=== PATIENT | female | born 1935 | race Caucasian/White ===

== ENCOUNTER 2019-08-30 10:53 | Observation (INO) | payer MEDICARE, SELFPAY ==
[2019-08-30] VITALS (9 sets, daily range): BP systolic 153–196; BP diastolic 76–102; PULSE 70–101; RESP 13–20; TEMP 36.2–36.5; O2SAT 94–97; BMI 25.2
--- NOTE | ~2019-08-30 | XR_ITS ---
EXAMINATION: XR hip RT 2V w AP pelvis EXAM DATE: 08/30/2019 13:45 INDICATION: Fall, right hip pain. TECHNIQUE: Right hip frontal, crosstable lateral and 'frog-leg' projections for interpretation. Front al projection pelvis. Comparison is made to prior examination from 03/31/2017. FINDINGS: There is intact right hip gamma nail. There is an old healed intertrochanteric fracture whi ch has been surgically fixed. There are no acute right hip or pelvic fractures or dislocations identi fied. There is no subcutaneous gas. The soft tissue is unremarkable. Sacrum, sacroiliac joints, s acral arcuate lines are intact. Advanced lower lumbar spondylosis. IMPRESSION: 1. XR hip RT 2V w AP pelvis exam without acute osseous findings. 2. Intact right hip gamma nail. Reviewed, dictated and finalized at location B. 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
--- NOTE | ~2019-08-30 | CT_ITS ---
EXAMINATION: CTA brain carotid DATE: 08/30/2019 13:23 INDICATION: Dizziness. TECHNIQUE: Computed tomographic angiography (CTA) of the head was performed without and with 100 mL O mnipaque-350 intravenous contrast. CTA of the neck was performed with intravenous contrast. Automated exposure control and iterative reconstruction technique were employed. The dose-length product was 1 536.62 mGy-cm. Maximum intensity projection and volume rendered 3D-reconstructions were created by katya garcia technologist on a separate workstation. COMPARISON: Head CT 07/24/2019 FINDINGS: HEAD CTA: There are scattered areas of low attenuation in the cerebral white matter. There is no intr acranial hemorrhage, acute infarction, or abnormal intracranial mass lesion. The ventricles are marcus l in size. There is mild mucosal thickening in the paranasal sinuses. There are likely changes of ocu lar lens replacement surgeries. The mastoid air cells are normal. Left vertebral artery is dominant. There is no significant stenosis of basilar artery or the posterior cerebral arteries. There is no si gnificant stenosis of the intracranial internal carotid arteries or anterior or middle cerebral arter ies. Anterior communicating artery is normal. The posterior communicating arteries are normal. There is no aneurysm. NECK CTA: There are bilateral pleural effusions. The lungs demonstrate smooth septal thickening, cons istent with pulmonary edema. There is a large right glenohumeral joint effusion. There are no patholo gically enlarged lymph nodes. There is no significant stenosis of the vertebral arteries. There is pl aque in the proximal internal carotid arteries. There is 58% stenosis of the proximal right internal carotid artery relative to normal distal artery lumen diameter (NASCET criteria). There is 0% stenosi s of the proximal left internal carotid artery relative to normal distal artery lumen diameter. There is severe cervical spondylosis. IMPRESSION: 1. Mild nonspecific cerebral white matter disease, which likely represents chronic small vessel ische percy disease. 2. No aneurysm or significant intracranial arterial stenosis. 3. 58% stenosis of the proximal right internal carotid artery relative to normal distal artery lumen diameter (NASCET criteria). 4. 0% stenosis of the proximal left internal carotid artery relative to normal distal artery lumen di ameter. 5. Pulmonary edema with bilateral pleural effusions. Reviewed, dictated and finalized at location A. . PAYROLL MANAGER IMPRESSION: 1. Mild nonspecific cerebral white matter disease, which likely represents associate professor of history clifton small vessel ischemic disease. 2. No aneurysm or significant intracranial arterial stenosis. 3. 58% stenosis of the proximal right internal carotid artery relative to marcus l distal artery lumen diameter (NASCET criteria). 4. 0% stenosis of the proximal left internal carotid artery relative to normal distal artery lumen diameter. 5. Pulmonary edema with bilateral pleural effusions.
--- NOTE | ~2019-08-30 | XR_ITS ---
EXAMINATION: XR shoulder RT min 2V EXAM DATE: 08/30/2019 13:45 INDICATION: Fall, right shoulder pain. TECHNIQUE: 3 projections of the right shoulder including a Y projection compared to prior study from 08/14/2019. FINDINGS: Subacute fracture at the neck of the right humerus again noted, position does not appear s ignificantly changed compared to prior study. If there has been a reinjury, can't exclude that there has been some small amount of shift in bone position. There has been development of some early change s of routine healing. Again there is probable joint effusion/hemarthrosis. IMPRESSION: Subacute comminuted right humeral neck fracture. Reviewed, dictated and finalized at location B. ENTER/LABOR
--- NOTE | 2019-08-30 11:29 | ECG_ITS ---
Measurements Intervals [place] Rate: 82 P: 54 ME: 147 QRS: 88 QRSD: 131 T: 30 QT: 440 QTc: 517 Interpretive Statements SINUS RHYTHM FREQUENT VENTRICULAR PREMATURE COMPLEXES RIGHT BUNDLE BRANCH BLOCK BASELINE ARTIFACT- II, III, AVR, AVL, AVF ABNORMAL ECG Electronically Signed On 08-30-2019 11:38:40 RADIO ASSEMBLER by Zackery Caldera D.O.
--- NOTE | 2019-08-30 12:22 | ED.FALL ---
HPI - Fall General Chief Complaint: Dizziness Stated Complaint: fall/r hip pain Time Seen by Provider: 08/30/19 12:12 Source: patient and family Mode of arrival: EMS Limitations: no limitations History of Present Illness HPI Narrative: A 83 y/o female pt presents to the ED, via EMS, from home with c/o a fall in her bathroom that occurred around 09:24 AM. Pt states she was leaving the bathroom when she remembers falling down onto her right side but is unsure if she passed out. She called her daughter because she was unable to get up. Per family, they were unable to get her off the floor because her bathroom is small and decided to call 911 for help. Pt fell on [place] (1 month ago) and broke her rt shoulder and was sent to a bounce back program through [facility] by Dr. Steve on (08/01/2019) where she was just released from on 08/26/2019. She notes that she fell about one year ago and fractured her rt hip that required surgical repair. Pt is currently complaining of dizziness that she describes as the room spinning, rt shoulder pain, and nausea since the fall this AM. She is also complaining of bilateral foot swelling that began 1 week ago that has been diagnosed as gout. Pt denies HI, ESPARZA, CP, ABD pain, or hip pain. She notes that the shoulder pain feels deep within her shoulder but does not radiate and rates her pain as a 9/10 on the pain scale that worsens with movement. Pt denies any relieving factors. Per family pt's blood pressure was higher than normal today when checked by EMS. complaint: fall Onset (ago): hour(s) (3) Fall from: standing Fall witnessed: no Place fall occurred: home Loss of consciousness: unsure Symptoms prior to fall: none Location of injury - extremities: Right: shoulder Severity scale (1-10): 9 Quality: other (deep) Associated symptoms (after fall): other (dizziness, nausea) Related Data Home Medications Medication Instructions Recorded Confirmed Januvia 100 mg PO DAILY 07/24/19 08/30/19 carbamazepine 200 mg PO TID 07/24/19 08/30/19 ezetimibe 10 mg PO DAILY 07/24/19 08/30/19 fluticasone propionate 1 spray INTRANASAL PRN PRN 07/24/19 08/30/19 furosemide 40 mg PO DAILY 07/24/19 08/30/19 metformin 1,000 mg PO DAILY 07/24/19 08/30/19 metoprolol tartrate 25 mg PO BID 07/24/19 08/30/19 montelukast 10 mg PO HS 07/24/19 08/30/19 omeprazole 20 mg PO DAILY 07/24/19 08/30/19 paroxetine HCl 40 mg PO DAILY 07/24/19 08/30/19 simvastatin 40 mg PO HS 07/24/19 08/30/19 Allergies Allergy/AdvReac Type Severity Reaction Status Date / Time influenza A (H1N1) virus Allergy Unknown Swelling Verified 08/30/19 11:07 vaccine m-jong-split 2008 of Lip/Tongue/Throat Influenza Virus Vaccines Allergy Unknown Swelling Verified 08/30/19 11:07 of Lip/Tongue/Throat phenobarbital Allergy Unknown Unknown Verified 08/14/19 12:31 Review of Systems Review of Systems: All systems reviewed & are unremarkable except as noted in HPI and below Constitutional: Constitutional: Denies chills, Denies fever(s), Denies headache(s) and Denies weakness Eyes: Eyes: Denies blurry vision ENT: Denies headache(s) and Denies neck pain Cardiovascular: Cardiovascular: Denies chest pain and Denies dyspnea Respiratory: Respiratory: Denies cough and Denies dyspnea Gastrointestinal: Gastrointestinal: Denies abdominal pain, Denies diarrhea, Reports nausea and Denies vomiting Genitourinary: Genitourinary: Denies hematuria and Denies dysuria Musculoskeletal: Musculoskeletal: Denies back pain, Reports arthralgias (rt shoulder), Denies neck pain and Denies other (rt hip pain) Neurologic: Reports dizziness ( room spinning ), Denies headache(s), Denies weakness and Reports other (Reports: unsure LOC; Denies: HI) [facility] Past Medical History Medical History (Updated 08/30/19 @ 22:19 by Jackie Cavanaugh MD) Anemia Arthritis CKD (chronic kidney disease) Stage III Closed fracture of right hip requiring operative repair Depression D
[2019-08-30 12:36] LABS: Basophils Absolute Auto 0.1 K/mm3 (0.0-0.1); Basophils Percent Auto 0.7 % (0.2-1.2); Eosinophils Absolute Auto 0.1 K/mm3 (0-0.3); Eosinophils Percent Auto 1.2 % (0-4.4); Hematocrit 32.5 % (37.0-47.0); Hemoglobin 10.3 g/dL (12.0-15.0); Immature Granulocyte Absolute 0.03 K/mm3 (0.00-0.031); Immature Granulocyte Percent A 0.4 % (0-0.5); Mean Corpuscular HGB Conc 31.7 g/dl (32-36); Mean Corpuscular Volume 94.8 fl (80-100); Mean Platelet Volume 9.3 fl (7.4-10.4); Monocytes Absolute Auto 0.4 K/mm3 (0.1-0.6); Monocytes Percent Auto 5.5 % (2.6-8.5); Neutrophils Absolute Auto 5.5 K/mm3 (1.3-6.7); Neutrophils Percent Auto 79.2 % (45.5-73.1); Platelet Count Result 234 k/mm3 (150-375); Red Blood Count 3.43 M/mm3 (4.2-5.4); Red Cell Distribution Width 14.5 % (11.5-14.5); White Blood Count 6.9 K/mm3 (4.5-10.0)
[2019-08-30 12:53] LABS: Alanine Aminotransferase 11 U/L (4-35); Albumin Level 3.8 g/dL (3.5-5.1); Alkaline Phosphatase 155 U/L (38-126); Aspartate Amino Transferase 29 U/L (14-36); Bilirubin,Total 0.6 mg/dL (0.2-1.3); Blood Urea Nitrogen 22 mg/dL (7-17); Carbon Dioxide 30 mmol/L (22-30); Chloride 95 mmol/L (98-107); Estimated CRCL calculation 60 ml/min; Estimated Glomerular Filt Rate > 60; Glucose 178 mg/dL (65-105); Potassium 3.2 mmol/L (3.4-5.0); Sodium 135 mmol/L (137-145)
[2019-08-30 13:13] LABS: NT Pro B Type Natriuretic Pept 8200 PG/ML (5-100); Troponin I 0.039 ng/mL (0.000-0.034)
[2019-08-30] MEDS: POTASSIUM CHLORIDE 20 MEQ TABLET 40 MEQ PO (14:31)
[2019-08-30] MEDS: MECLIZINE HCL 25 MG TABLET PO (14:31)
--- NOTE | 2019-08-30 16:41 | ADMGEN ---
This patient, Elizabeth Negron, was admitted to IMU Room 214-01. Patient/family oriented to hospital policies and general routines including ID bracelet, bed and alarms, visiting hours, pain management, procedures, bathroom and other care routines, personal items, smoking policy, room service/diet, and visiting hours. Valuables list has been completed. Information on how to activate the Rapid Response Team has been discussed. Patient/Family are encouraged to report perceived risks to care and to ask questions if they do not understand what they are told or what they should do.
[2019-08-30 18:10] LABS: Glucose Point of Care 196 (65-105)
[2019-08-30 18:18] LABS: Troponin I 0.069 ng/mL (0.000-0.034)
--- NOTE | 2019-08-30 20:28 | PM.IMHP ---
H&P: HPI History of Present Illness Chief complaint: Syncope/Elevated troponin/right shoulder pain Narrative: Elizabeth Negron is a 83 year old female who I saw last month on [place]. The patient was seen for fractured humerus. The patient had been in the parents back program at [facility] and has been followed by Dr. Diaz. The patient stated she just recently went back to her house and lives home alone. The patient was in her home when she fell in the bathroom at about 924 this morning. She was leaving her bathroom when she realized that she had fallen. she has a bruise to the right side of her chest. CT of the brain was found to be negative. She was x-rayed and found to have no fractures except for her right humerus which was there from [place]. The patient was complaining of dizziness and room spinning when she came to the emergency room. Of right arm pain and was given [place] in the emergency room as well as fentanyl. Was found to be 3.2 to was given supplement potassium in the emergency room. Her blood sugar has been in the 100. Troponin was found to be 0.039 and 0.069. The patient is not complaining of any chest pain or shortness of breath. EKG from the ER was read as sinus rhythm frequent ventricular premature complexes. Right bundle branch block. Abnormal EKG. To be the same reading as last month. Date of service 08/30/2019 Review of Systems Review of Systems: All systems reviewed & are unremarkable except as noted in HPI and below Constitutional: Constitutional: Reports as per HPI, Reports no additional constitutional complaints, Reports frequent falls, Reports lethargy and Reports weakness Eyes: Eyes: Reports as per HPI and Reports no additional eye complaints ENT: Reports system reviewed and no additional complaints, except as documented and Reports Normal hearing present Cardiovascular: Cardiovascular: Reports no additional cardiovascular complaints Respiratory: Respiratory: Reports no additional respiratory complaints and Reports no additional respiratory complaints Gastrointestinal: Gastrointestinal: Reports as per HPI and Reports no additional gastrointestinal complaints Genitourinary: Genitourinary: Reports urinary urgency and Reports other (Incontinent of urine) Musculoskeletal: Musculoskeletal: Reports no additional musculoskeletal complaints Integumentary/Breasts: Skin/Breast: Reports system reviewed and no additional complaints, except as docu and Reports as per HPI Neurologic: Reports system reviewed and no additional complaints, except as documented, Reports as per HPI and Reports Normal hearing present Psychiatric: Psychiatric: Reports no additional psychiatric complaints and Reports as per HPI Endocrine: Endocrine: Reports no additional endocrine complaints Hematologic/Lymphatic: Hematologic/Lymphatic: Reports no additional hematologic/lymphatic complaints Allergic/Immunologic: Allergic/Immunologic: Reports no additional allergic/immunologic complaints [facility] Past Medical History Medical History (Updated 08/30/19 @ 20:46 by Blanche Crowe NP) Anemia Arthritis CKD (chronic kidney disease) Stage III Closed fracture of right hip requiring operative repair Depression Diabetes With peripheral neuropathy Diverticulitis Fracture of proximal end of right humerus GERD (gastroesophageal reflux disease) GI bleed History of blood transfusion History of rectal polyps HTN (hypertension) Hyperlipidemia Peripheral neuropathy Pneumonia Sinus problem UTI (urinary tract infection) Surgical History Surgical History Fracture of right hip requiring operative repair H/O bilateral cataract extraction H/O inguinal hernia repair H/O: hysterectomy History of appendectomy History of colon resection History of rectal polypectomy Family History Family History Sibling Carcinoma of col
[2019-08-30] MEDS: MONTELUKAST SODIUM 10 MG TABLET PO (21:14)
[2019-08-30] MEDS: METOPROLOL TARTRATE 25 MG TABLET PO (21:14)
[2019-08-30] MEDS: TRAZODONE HCL 50 MG TABLET PO (21:14)
[2019-08-30] MEDS: carBAMazepine 200 MG TABLET PO (21:14)
[2019-08-30 21:44] LABS: Troponin I 0.079 ng/mL (0.000-0.034)
[2019-08-30] MEDS: ACETAMINOPHEN 325 MG TABLET 650 MG PO (22:04)
[2019-08-31] VITALS (11 sets, daily range): BP systolic 150–169; BP diastolic 54–66; PULSE 56–90; RESP 16–18; TEMP 35.9–36.5; O2SAT 92–96
[2019-08-31 04:50] LABS: Basophils Percent Auto 0.7 % (0.2-1.2); Eosinophils Absolute Auto 0.2 K/mm3 (0-0.3); Eosinophils Percent Auto 2.5 % (0-4.4); Hematocrit 30.7 % (37.0-47.0); Hemoglobin 9.6 g/dL (12.0-15.0); Immature Granulocyte Absolute 0.04 K/mm3 (0.00-0.031); Immature Granulocyte Percent A 0.7 % (0-0.5); Lymphocytes Absolute Auto 0.95 K/mm3 (0.9-3.2); Mean Corpuscular HGB Conc 31.3 g/dl (32-36); Mean Corpuscular Hemoglobin 29.7 pg (26-34); Mean Platelet Volume 9.3 fl (7.4-10.4); Monocytes Absolute Auto 0.5 K/mm3 (0.1-0.6); Monocytes Percent Auto 8.4 % (2.6-8.5); Neutrophils Absolute Auto 4.3 K/mm3 (1.3-6.7); Neutrophils Percent Auto 71.7 % (45.5-73.1); Platelet Count Result 232 k/mm3 (150-375); Red Blood Count 3.23 M/mm3 (4.2-5.4); Red Cell Distribution Width 14.3 % (11.5-14.5)
[2019-08-31 05:11] LABS: Alanine Aminotransferase 10 U/L (4-35); Albumin Level 3.2 g/dL (3.5-5.1); Alkaline Phosphatase 132 U/L (38-126); Aspartate Amino Transferase 23 U/L (14-36); Bilirubin,Total 0.4 mg/dL (0.2-1.3); Blood Urea Nitrogen 18 mg/dL (7-17); Calcium 7.6 mg/dL (8.4-10.2); Carbon Dioxide 31 mmol/L (22-30); Chloride 100 mmol/L (98-107); Estimated CRCL calculation 52 ml/min; Estimated Glomerular Filt Rate > 60; Glucose 167 mg/dL (65-105); Magnesium 1.1 mg/dL (1.6-2.3); Potassium 3.5 mmol/L (3.4-5.0); Sodium 139 mmol/L (137-145)
[2019-08-31 08:35] LABS: Glucose Point of Care 158 (65-105)
[2019-08-31] MEDS: POTASSIUM CHLORIDE 20 MEQ PACKET (FOR LIQUID) PO (08:44)
[2019-08-31] MEDS: PAROXETINE 20 MG TABLET 40 MG PO (08:45)
[2019-08-31] MEDS: PANTOPRAZOLE 40 MG TABLET PO (08:45)
[2019-08-31] MEDS: EZETIMIBE 10 MG TABLET PO (08:45)
[2019-08-31] MEDS: FUROSEMIDE 40 MG TABLET PO (08:45)
[2019-08-31] MEDS: METOPROLOL TARTRATE 25 MG TABLET PO ×2 (08:45→20:00)
[2019-08-31] MEDS: carBAMazepine 200 MG TABLET PO ×3 (08:45→17:15)
[2019-08-31] MEDS: MAGNESIUM SULF 4 GM/WATER100ML 4 GM/100 ML BAG IVPB (08:48)
--- NOTE | 2019-08-31 10:49 | PM.CNOR ---
Assessment and Plan Assessment and plan (1) Fall: Qualifiers: Encounter type: initial encounter Qualified Code(s): W19.XXXA - Unspecified fall, initial encounter Code(s): W19.XXXA - Unspecified fall, initial encounter Status: Acute Assessment and Plan: New evaluation s/p fall on 08/30 AM onto the right side. History, exam and radiographs reviewed with the patient s/p new fall at home on 08/30 AM. Radiographs of the right arm reveal a subacute fracture at the neck of the right humerus with unchanged position compared to prior radiographs. New development of routine healing noted. Radiographs of the right hip reveal an old healed intertrochanteric fracture with internal fixation in good position. No acute right hip or pelvic fractures or dislocations identified. Continue PT/OT. Pendulum exercises. Progress use of RUE as tolerated. Sling as needed for comfort. Ice. Pain control. Follow up as an outpatient in [address] Steve for repeat radiographs. (2) Fracture of proximal end of right humerus: Qualifiers: Encounter type: subsequent encounter Fracture type: closed Fracture morphology: other fracture Fracture alignment: displaced Fracture healing: with routine healing Qualified Code(s): S42.291D - Other displaced fracture of upper end of right humerus, subsequent encounter for fracture with routine healing Code(s): S42.201A - Unspecified fracture of upper end of right humerus, initial encounter for closed fracture Status: Acute Assessment and Plan: New radiographs of the right shoulder s/p new fall on 08/30 reveal a subacute fracture at the neck of the right humerus with unchanged position compared to prior radiographs. New development of routine healing noted. Continue use of sling as needed for comfort. Ice. Pain control. PT/OT for pendulum exercises. Progress use of arm as tolerated. Follow up in [address] Steve for repeat radiographs. (3) Pain in right shoulder: Qualifiers: Chronicity: unspecified Qualified Code(s): M25.511 - Pain in right shoulder Code(s): M25.511 - Pain in right shoulder Status: Acute History of Present Illness HPI Consult date: 08/31/19 Requesting physician: Jackie Cavanaugh MD Consult reason: fracture (Right Shoulder ) Chief complaint: Syncope/Elevated troponin/right shoulder pain Narrative: 83 year old female, known to the orthopedic service s/p fall on 07/25 which resulted in a right humeral neck fracture. The patient elected for nonoperative treatment after her fracture and was discharged to an acute rehab facility for rehabilitation. She was recently evaluated in our office on 08/14 and repeat radiographs at that time reveal a proximal humerus fracture with unchanged alignment. She was progressed to pendulum exercises at that facility. Per patient, she was discharged home from rehab on Tuesday. She now presents s/p NEW fall on 08/30 while in the bathroom yesterday morning. She reports having fallen into a towel rack onto the right side and endorses increased RUE pain s/p fall. She does endorse dizziness prior to her fall but denies loss of consciousness. She contacted a friend who could not help get her up so EMS was called. She was evaluated in the ED and admitted in the setting of hypokalemia, syncope and elevated troponins. Review of Systems Review of Systems: All systems reviewed & are unremarkable except as noted in HPI and below Constitutional: Constitutional: Reports no additional constitutional complaints and Denies night sweats Eyes: Eyes: Reports no additional eye complaints ENT: Reports Normal hearing present Cardiovascular: Cardiovascular: Denies chest pain and Reports lightheadedness Respiratory: Respiratory: Reports no additional respiratory complaints and Denies dyspnea Gastrointestinal: Gastrointestinal: Denies abdominal pain, Denies constipation, Denies diarrhea, Denies nausea and D
--- NOTE | 2019-08-31 11:04 | PM.IMPN ---
Progress Note: A&P Assessment and Plan (1) Elevated troponin: Code(s): R79.89 - Other specified abnormal findings of blood chemistry Status: Acute Assessment and Plan: Minimal elevation of troponin level no chest pain. EKG with no acute changes. Telemetry reviewed on 08/31/2019 with sinus rhythm. Will transfer to medical floor. Patient preference is to go home with home health. Hopefully will be able to discharge this weekend. (2) Dizziness: Code(s): R42 - Dizziness and giddiness Status: Acute Assessment and Plan: CT head with no acute changes. Will start scheduled meclizine. Will monitor. PT/OT following. (3) Hypomagnesemia: Code(s): E83.42 - Hypomagnesemia Status: Acute Assessment and Plan: Magnesium 1.1 today with IV replacement given. Will continue to monitor and replace as needed. (4) Fracture of proximal end of right humerus: Qualifiers: Encounter type: subsequent encounter Fracture alignment: displaced Fracture healing: with routine healing Fracture morphology: other fracture Fracture type: closed Qualified Code(s): S42.291D - Other displaced fracture of upper end of right humerus, subsequent encounter for fracture with routine healing Code(s): S42.201A - Unspecified fracture of upper end of right humerus, initial encounter for closed fracture Status: Acute Assessment and Plan: Being followed by Dr. Steve prior to this admission. Appreciate input from Orthopedics. Continue sling to right upper extremity with new imaging only showing subacute comminuted right humeral neck fracture with no new changes. Continue PT/ OT. Continue home hydrocodone acetaminophen. (5) Diabetes: Qualifiers: Chronic kidney disease stage: stage 3 (moderate) Diabetes mellitus complication detail: with chronic kidney disease Diabetes mellitus complication status: with kidney complications Diabetes mellitus retirement insulin use: without retirement use Diabetes mellitus type: type 2 Qualified Code(s): E11.22 - Type 2 diabetes mellitus with diabetic chronic kidney disease; N18.3 - Chronic kidney disease, stage 3 (moderate) Code(s): E11.9 - Type 2 diabetes mellitus without complications Status: Chronic Assessment and Plan: Glucose reviewed on 08/31/2019 and stable. Continue Januvia. Sliding scale insulin available. Will monitor. Adjust treatment as needed. (6) CKD (chronic kidney disease): Qualifiers: Chronic kidney disease stage: stage 3 (moderate) Qualified Code(s): N18.3 - Chronic kidney disease, stage 3 (moderate) Code(s): N18.9 - Chronic kidney disease, unspecified Status: Chronic Assessment and Plan: Creatinine better than baseline and 0.70 today. Will monitor. (7) HTN (hypertension): Qualifiers: Hypertension type: essential hypertension Qualified Code(s): I10 - Essential (primary) hypertension Code(s): I10 - Essential (primary) hypertension Status: Chronic Assessment and Plan: Blood pressure reviewed on 08/31/2019 and stable. Will continue to monitor on metoprolol and Lasix. (8) Hyperlipidemia: Qualifiers: Hyperlipidemia type: unspecified Qualified Code(s): E78.5 - Hyperlipidemia, unspecified Code(s): E78.5 - Hyperlipidemia, unspecified Status: Chronic Assessment and Plan: Continue Zetia. Simvastatin discontinued with recent falls in case causing muscle issues. (9) Peripheral neuropathy: Qualifiers: Peripheral neuropathy type: polyneuropathy, unspecified Qualified Code(s): G62.9 - Polyneuropathy, unspecified Code(s): G62.9 - Polyneuropathy, unspecified Status: Chronic Assessment and Plan: Continue PT/OT. No acute issue. (10) Depression: Qualifiers: Depression Type: unspecified Qualified Code(s): F32.9 - Major depressive disorder, single episode, unspec
--- NOTE | 2019-08-31 12:55 | PC.NURSE ---
This patient, Elizabeth Negron, was transferred to [ [id number]] on 08/31/19 at 1256. Personal belongings sent with patient. Belongings list checked and signed with receiving [ ]. Report given to [ RICHARD Bullock @ [id number]]. Appropriate documentation sent with patient.
[2019-08-31 13:03] LABS: Glucose Point of Care 229 (65-105)
[2019-08-31] MEDS: INSULIN ASPART (*BKC) 100 UNITS/ML SUB-Q (13:30)
[2019-08-31 18:28] LABS: Glucose Point of Care 198 (65-105)
[2019-08-31] MEDS: MECLIZINE HCL 12.5 MG TABLET PO ×2 (18:58→20:00)
[2019-08-31] MEDS: TRAZODONE HCL 50 MG TABLET PO (20:00)
[2019-08-31] MEDS: MONTELUKAST SODIUM 10 MG TABLET PO (20:00)
[2019-08-31 20:23] LABS: Glucose Point of Care 297 (65-105)
[2019-09-01 06:00] VITALS: BP 170/59; PULSE 73; RESP 18; TEMP 36.8; O2SAT 96
[2019-09-01 06:34] LABS: Blood Urea Nitrogen 23 mg/dL (7-17); Calcium 7.7 mg/dL (8.4-10.2); Carbon Dioxide 29 mmol/L (22-30); Chloride 96 mmol/L (98-107); Estimated CRCL calculation 52 ml/min; Estimated Glomerular Filt Rate > 60; Glucose 169 mg/dL (65-105); Magnesium 1.8 mg/dL (1.6-2.3); Potassium 3.6 mmol/L (3.4-5.0); Sodium 134 mmol/L (137-145)
[2019-09-01 08:00] VITALS: BP 172/77; PULSE 84; RESP 20; TEMP 36.9; O2SAT 93
[2019-09-01] MEDS: POTASSIUM CHLORIDE 20 MEQ PACKET (FOR LIQUID) PO (08:38)
[2019-09-01 08:39] VITALS: PULSE 78
[2019-09-01] MEDS: METOPROLOL TARTRATE 25 MG TABLET PO (08:39)
[2019-09-01] MEDS: PANTOPRAZOLE 40 MG TABLET PO (08:39)
[2019-09-01] MEDS: FUROSEMIDE 40 MG TABLET PO (08:41)
[2019-09-01] MEDS: carBAMazepine 200 MG TABLET PO ×3 (08:41→18:25)
[2019-09-01] MEDS: MECLIZINE HCL 12.5 MG TABLET PO ×4 (08:41→20:37)
[2019-09-01] MEDS: EZETIMIBE 10 MG TABLET PO (08:41)
[2019-09-01] MEDS: PAROXETINE 20 MG TABLET 40 MG PO (10:28)
--- NOTE | 2019-09-01 11:23 | PM.IMPN ---
Progress Note: A&P Assessment and Plan (1) Dizziness: Code(s): R42 - Dizziness and giddiness Status: Acute Assessment and Plan: CT head with no acute changes. Improving with scheduled meclizine. Continue PT/OT. Requiring more assistance with therapy today. Patient is willing to go to a rehab facility if able to be arranged. Not safe to discharge today. Will continue to monitor. (2) HTN (hypertension): Qualifiers: Hypertension type: essential hypertension Qualified Code(s): I10 - Essential (primary) hypertension Code(s): I10 - Essential (primary) hypertension Status: Chronic Assessment and Plan: Blood pressure reviewed on 09/01/2019. Remains elevated. Will increase metoprolol. Continue Lasix. Will monitor and adjust treatment as needed. (3) Fracture of proximal end of right humerus: Qualifiers: Encounter type: subsequent encounter Fracture alignment: displaced Fracture healing: with routine healing Fracture morphology: other fracture Fracture type: closed Qualified Code(s): S42.291D - Other displaced fracture of upper end of right humerus, subsequent encounter for fracture with routine healing Code(s): S42.201A - Unspecified fracture of upper end of right humerus, initial encounter for closed fracture Status: Acute Assessment and Plan: Being followed by Dr. Steve prior to this admission. Appreciate input from Orthopedics. Continue sling to right upper extremity with new imaging only showing subacute comminuted right humeral neck fracture with no new changes. Continue PT/ OT. Continue home hydrocodone acetaminophen. Will also try adding Lidoderm patch to help with pain. (4) Elevated troponin: Code(s): R79.89 - Other specified abnormal findings of blood chemistry Status: Acute Assessment and Plan: Minimal elevation of troponin level no chest pain. EKG with no acute changes. No chest pain. (5) Hypomagnesemia: Code(s): E83.42 - Hypomagnesemia Status: Acute Assessment and Plan: Magnesium 1.8 today. Will continue to monitor and replace as needed. 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 Continue Januvia. Sliding scale insulin available. Will monitor. Adjust treatment as needed. (7) CKD (chronic kidney disease): Qualifiers: Chronic kidney disease stage: stage 3 (moderate) Qualified Code(s): N18.3 - Chronic kidney disease, stage 3 (moderate) Code(s): N18.9 - Chronic kidney disease, unspecified Status: Chronic Assessment and Plan: Creatinine remains better than baseline at 0.70 today. Will monitor. (8) Hyperlipidemia: Qualifiers: Hyperlipidemia type: unspecified Qualified Code(s): E78.5 - Hyperlipidemia, unspecified Code(s): E78.5 - Hyperlipidemia, unspecified Status: Chronic Assessment and Plan: Continue Zetia. Simvastatin discontinued with recent falls in case causing muscle issues. (9) Peripheral neuropathy: Qualifiers: Peripheral neuropathy type: polyneuropathy, unspecified Qualified Code(s): G62.9 - Polyneuropathy, unspecified Code(s): G62.9 - Polyneuropathy, unspecified Status: Chronic Assessment and Plan: Continue PT/OT. No acute issue. (10) Depression: Qualifiers: Depression Type: unspecif
[2019-09-01 11:45] LABS: Glucose Point of Care 175 (65-105)
[2019-09-01 12:16] LABS: Glucose Point of Care 195 (65-105)
[2019-09-01] MEDS: LIDOCAINE 5% PATCH 1 PATCH TRANSDERM (12:41)
[2019-09-01 14:00] VITALS: BP 171/69; PULSE 72; RESP 20; TEMP 36.4; O2SAT 95
--- NOTE | 2019-09-01 15:42 | PCCCNOTE ---
EHR request sent at [phone]
[2019-09-01 18:12] LABS: Glucose Point of Care 157 (65-105)
[2019-09-01 20:38] VITALS: PULSE 72
[2019-09-01] MEDS: METOPROLOL TARTRATE 50 MG TAB PO (20:38)
[2019-09-01] MEDS: MONTELUKAST SODIUM 10 MG TABLET PO (20:39)
[2019-09-01] MEDS: TRAZODONE HCL 50 MG TABLET PO (20:40)
[2019-09-01 22:00] VITALS: BP 174/75; PULSE 86; RESP 18; TEMP 36.8; O2SAT 96
[2019-09-02 01:52] LABS: Glucose Point of Care 282 (65-105)
[2019-09-02 06:00] VITALS: BP 177/73; PULSE 62; RESP 16; TEMP 36.6; O2SAT 95
[2019-09-02 06:17] LABS: Blood Urea Nitrogen 27 mg/dL (7-17); Calcium 8.1 mg/dL (8.4-10.2); Carbon Dioxide 29 mmol/L (22-30); Chloride 94 mmol/L (98-107); Estimated CRCL calculation 46 ml/min; Estimated Glomerular Filt Rate > 60; Glucose 168 mg/dL (65-105); Magnesium 1.6 mg/dL (1.6-2.3); Potassium 3.9 mmol/L (3.4-5.0); Sodium 133 mmol/L (137-145)
[2019-09-02] MEDS: LIDOCAINE 5% PATCH 1 PATCH TRANSDERM (08:47)
[2019-09-02] MEDS: PAROXETINE 20 MG TABLET 40 MG PO (08:47)
[2019-09-02 08:48] VITALS: PULSE 64
[2019-09-02] MEDS: FUROSEMIDE 40 MG TABLET PO (08:48)
[2019-09-02] MEDS: POTASSIUM CHLORIDE 20 MEQ PACKET (FOR LIQUID) PO (08:48)
[2019-09-02] MEDS: MECLIZINE HCL 12.5 MG TABLET PO ×4 (08:48→20:30)
[2019-09-02] MEDS: METOPROLOL TARTRATE 50 MG TAB PO ×2 (08:48→20:30)
[2019-09-02] MEDS: EZETIMIBE 10 MG TABLET PO (08:48)
[2019-09-02] MEDS: PANTOPRAZOLE 40 MG TABLET PO (08:50)
[2019-09-02] MEDS: carBAMazepine 200 MG TABLET PO ×3 (08:50→17:17)
--- NOTE | 2019-09-02 11:08 | PM.IMPN ---
Progress Note: A&P Assessment and Plan (1) Dizziness: Code(s): R42 - Dizziness and giddiness Status: Acute Assessment and Plan: CT head with no acute changes. Improved with schedule meclizine. Continue PT/OT. Patient does have authorization for SNF. Can be accepted by [facility] tomorrow. Is medically stable. Anticipate discharge tomorrow. (2) HTN (hypertension): Qualifiers: Hypertension type: essential hypertension Qualified Code(s): I10 - Essential (primary) hypertension Code(s): I10 - Essential (primary) hypertension Status: Chronic Assessment and Plan: Blood pressure reviewed on 09/02/2019. Noted be improving today with increase in metoprolol. Also on Lasix. Will continue to monitor. Adjust treatment as needed. (3) Fracture of proximal end of right humerus: Qualifiers: Encounter type: subsequent encounter Fracture alignment: displaced Fracture healing: with routine healing Fracture morphology: other fracture Fracture type: closed Qualified Code(s): S42.291D - Other displaced fracture of upper end of right humerus, subsequent encounter for fracture with routine healing Code(s): S42.201A - Unspecified fracture of upper end of right humerus, initial encounter for closed fracture Status: Acute Assessment and Plan: Being followed by Dr. Steve prior to this admission. Appreciate input from Orthopedics. Continue sling to right upper extremity with new imaging only showing subacute comminuted right humeral neck fracture with no new changes. Continue PT/ OT. Continue home hydrocodone acetaminophen and Lidoderm patch to help with pain. (4) Elevated troponin: Code(s): R79.89 - Other specified abnormal findings of blood chemistry Status: Acute Assessment and Plan: Minimal elevation of troponin level no chest pain. EKG with no acute changes. No chest pain. (5) Hypomagnesemia: Code(s): E83.42 - Hypomagnesemia Status: Acute Assessment and Plan: Magnesium 1.6 today. Will start oral replacement today. Recheck in am. 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 Glucose acceptably controlled. Continue Januvia. Sliding scale insulin available. Will monitor. Adjust treatment as needed. (7) CKD (chronic kidney disease): Qualifiers: Chronic kidney disease stage: stage 3 (moderate) Qualified Code(s): N18.3 - Chronic kidney disease, stage 3 (moderate) Code(s): N18.9 - Chronic kidney disease, unspecified Status: Chronic Assessment and Plan: Creatinine remains better than baseline at 0.80 today. Will monitor. (8) Hyperlipidemia: Qualifiers: Hyperlipidemia type: unspecified Qualified Code(s): E78.5 - Hyperlipidemia, unspecified Code(s): E78.5 - Hyperlipidemia, unspecified Status: Chronic Assessment and Plan: Continue Zetia. Simvastatin discontinued with recent falls in case causing muscle issues. (9) Peripheral neuropathy: Qualifiers: Peripheral neuropathy type: polyneuropathy, unspecified Qualified Code(s): G62.9 - Polyneuropathy, unspecified Code(s): G62.9 - Polyneuropathy, unspecified Status: Chronic Assessment and Plan: Continue PT/OT. No acute issue. (10) Depression: Qualifiers: Depression Type: unspecified Qualified Code(s): F
[2019-09-02] MEDS: INSULIN ASPART (*BKC) 100 UNITS/ML SUB-Q (12:21)
[2019-09-02 12:28] LABS: Glucose Point of Care 181 (65-105)
[2019-09-02 12:28] LABS: Glucose Point of Care 222 (65-105)
[2019-09-02 14:00] VITALS: BP 149/66; PULSE 60; RESP 20; TEMP 36.9; O2SAT 96
--- NOTE | 2019-09-02 16:29 | PCOTNOTE ---
The patient treatment was not able to be completed. Will plan to continue treatment per plan of care.
[2019-09-02 17:38] LABS: Glucose Point of Care 140 (65-105)
[2019-09-02 20:30] VITALS: PULSE 74
[2019-09-02] MEDS: MONTELUKAST SODIUM 10 MG TABLET PO (20:30)
[2019-09-02] MEDS: MAGNESIUM OXIDE 400 MG TABLET PO (20:30)
[2019-09-02] MEDS: TRAZODONE HCL 50 MG TABLET PO (20:31)
[2019-09-02 20:48] LABS: Glucose Point of Care 218 (65-105)
[2019-09-02 21:52] VITALS: BP 188/72; PULSE 74; RESP 18; TEMP 36.1; O2SAT 92
[2019-09-03 05:55] VITALS: BP 164/75; PULSE 72; RESP 16; TEMP 36.2; O2SAT 94
[2019-09-03 06:48] LABS: Glucose Point of Care 222 (65-105)
[2019-09-03 06:57] LABS: Blood Urea Nitrogen 23 mg/dL (7-17); Calcium 8.7 mg/dL (8.4-10.2); Carbon Dioxide 32 mmol/L (22-30); Chloride 92 mmol/L (98-107); Estimated CRCL calculation 52 ml/min; Estimated Glomerular Filt Rate > 60; Glucose 192 mg/dL (65-105); Magnesium 1.5 mg/dL (1.6-2.3); Potassium 4.3 mmol/L (3.4-5.0); Sodium 131 mmol/L (137-145)
[2019-09-03] MEDS: INSULIN ASPART (*BKC) 100 UNITS/ML SUB-Q ×2 (07:16→17:13)
[2019-09-03 08:00] VITALS: PULSE 72; RESP 16; O2SAT 94
--- NOTE | 2019-09-03 08:17 | PCOTNOTE ---
Pt refused skilled OT this morning 2/2 too sick, vomiting and diahrrea.
[2019-09-03] MEDS: METOPROLOL TARTRATE 50 MG TAB PO (08:42)
[2019-09-03] MEDS: EZETIMIBE 10 MG TABLET PO (08:42)
[2019-09-03] MEDS: carBAMazepine 200 MG TABLET PO ×3 (08:43→16:42)
[2019-09-03] MEDS: FUROSEMIDE 40 MG TABLET PO (08:43)
[2019-09-03] MEDS: PAROXETINE 20 MG TABLET 40 MG PO (08:44)
[2019-09-03] MEDS: PANTOPRAZOLE 40 MG TABLET PO (08:44)
[2019-09-03] MEDS: MAGNESIUM OXIDE 400 MG TABLET PO (08:45)
[2019-09-03] MEDS: LIDOCAINE 5% PATCH 1 PATCH TRANSDERM (08:45)
[2019-09-03] MEDS: MECLIZINE HCL 12.5 MG TABLET PO ×3 (08:47→16:42)
[2019-09-03] MEDS: POTASSIUM CHLORIDE 20 MEQ PACKET (FOR LIQUID) PO (08:51)
[2019-09-03] MEDS: ONDANSETRON HCL ODT 4 MG TABLET PO (09:04)
[2019-09-03] MEDS: MAGNESIUM SULF 2 GM/WATER 50ML 2 GM/50 ML BAG IVPB (09:05)
[2019-09-03] MEDS: AMLODIPINE BESYLATE 5 MG TABLET PO (10:40)
[2019-09-03 12:50] LABS: Glucose Point of Care 196 (65-105)
--- NOTE | 2019-09-03 13:28 | PM.IMPN ---
Progress Note: A&P Assessment and Plan (1) Dizziness: Code(s): R42 - Dizziness and giddiness Status: Acute Assessment and Plan: CT head with no acute changes. Still present but improved with schedule meclizine. Continue PT/OT. Has been accepted at [facility] for SNF with insurance authorization received. Will discharge today. (2) HTN (hypertension): Qualifiers: Hypertension type: essential hypertension Qualified Code(s): I10 - Essential (primary) hypertension Code(s): I10 - Essential (primary) hypertension Status: Chronic Assessment and Plan: Blood pressure reviewed on 09/03/2019. Still with elevation this morning. Continue increased metoprolol and Lasix. Amlodipine add today. Will need to follow at SNF and adjust medication as needed. (3) Fracture of proximal end of right humerus: Qualifiers: Encounter type: subsequent encounter Fracture alignment: displaced Fracture healing: with routine healing Fracture morphology: other fracture Fracture type: closed Qualified Code(s): S42.291D - Other displaced fracture of upper end of right humerus, subsequent encounter for fracture with routine healing Code(s): S42.201A - Unspecified fracture of upper end of right humerus, initial encounter for closed fracture Status: Acute Assessment and Plan: Being followed by Dr. Steve prior to this admission. Appreciate input from Orthopedics. Continue sling to right upper extremity with new imaging only showing subacute comminuted right humeral neck fracture with no new changes. Continue PT/ OT. Continue home hydrocodone acetaminophen and Lidoderm patch to help with pain. Continue activity as per orthopedics. (4) Elevated troponin: Code(s): R79.89 - Other specified abnormal findings of blood chemistry Status: Acute Assessment and Plan: Minimal elevation of troponin level no chest pain. EKG with no acute changes. No chest pain. (5) Hypomagnesemia: Code(s): E83.42 - Hypomagnesemia Status: Acute Assessment and Plan: Magnesium 1.5 today. IV replacement given this morning in addition to scheduled oral replacement. Follow at SNF. (6) Diabetes: Qualifiers: Chronic kidney disease stage: stage 3 (moderate) Diabetes mellitus complication detail: with chronic kidney disease Diabetes mellitus complication status: with kidney complications Diabetes mellitus halfway insulin use: without halfway use Diabetes mellitus type: type 2 Qualified Code(s): E11.22 - Type 2 diabetes mellitus with diabetic chronic kidney disease; N18.3 - Chronic kidney disease, stage 3 (moderate) Code(s): E11.9 - Type 2 diabetes mellitus without complications Status: Chronic Assessment and Plan: Glucose reviewed on 09/03/2019. Glucose remains acceptably controlled. Continue Januvia. Sliding scale insulin available. Monitor at SNF. (7) CKD (chronic kidney disease): Qualifiers: Chronic kidney disease stage: stage 3 (moderate) Qualified Code(s): N18.3 - Chronic kidney disease, stage 3 (moderate) Code(s): N18.9 - Chronic kidney disease, unspecified Status: Chronic Assessment and Plan: Creatinine remains better than baseline at 0.70 today. (8) Hyperlipidemia: Qualifiers: Hyperlipidemia type: unspecified Qualified Code(s): E78.5 - Hyperlipidemia, unspecified Code(s): E78.5 - Hyperlipidemia, unspecified Status: Chronic Assessment and Plan: Continue Zetia. Simvastatin discontinued with recent falls in case causing muscle issues. (9) Peripheral neuropathy: Qualifiers: Peripheral neuropathy type: polyneuropathy, unspecified Qualified Code(s): G62.9 - Polyneuropathy, unspecified Code(s): G62.9 - Polyneuropathy, unspecified Status: Chronic Assessment and Plan: Continue PT/OT. No acute issue. (10) Depression: Qualifi
[2019-09-03 14:00] VITALS: BP 162/53; PULSE 63; RESP 14; TEMP 36.1; O2SAT 93
--- NOTE | 2019-09-03 15:47 | PCCCNOTE ---
On 09/03/19, the student, [Carmita Tang], provided care and [facility]. I have reviewed the student's documentation and agree with the findings.
[2019-09-03 16:50] LABS: Glucose Point of Care 217 (65-105)
--- NOTE | 2019-09-03 20:41 | PM.DS ---
DS: Diagnosis Admitting Diagnosis Admitting Diagnosis: Other specified abnormal findings of blood chemistry Discharge Diagnosis (1) Dizziness: Code(s): R42 - Dizziness and giddiness Status: Acute (2) HTN (hypertension): Qualifiers: Hypertension type: essential hypertension Qualified Code(s): I10 - Essential (primary) hypertension Code(s): I10 - Essential (primary) hypertension Status: Chronic (3) Fracture of proximal end of right humerus: Qualifiers: Encounter type: subsequent encounter Fracture type: closed Fracture morphology: other fracture Fracture alignment: displaced Fracture healing: with routine healing Qualified Code(s): S42.291D - Other displaced fracture of upper end of right humerus, subsequent encounter for fracture with routine healing Code(s): S42.201A - Unspecified fracture of upper end of right humerus, initial encounter for closed fracture Status: Acute (4) Elevated troponin: Code(s): R79.89 - Other specified abnormal findings of blood chemistry Status: Acute (5) Hypomagnesemia: Code(s): E83.42 - Hypomagnesemia Status: Acute (6) Diabetes: Qualifiers: Diabetes mellitus type: type 2 Diabetes mellitus terminal gauger insulin use: without terminal gauger use Diabetes mellitus complication status: with kidney complications Diabetes mellitus complication detail: with chronic kidney disease Chronic kidney disease stage: stage 3 (moderate) Qualified Code(s): E11.22 - Type 2 diabetes mellitus with diabetic chronic kidney disease; N18.3 - Chronic kidney disease, stage 3 (moderate) Code(s): E11.9 - Type 2 diabetes mellitus without complications Status: Chronic (7) CKD (chronic kidney disease): Qualifiers: Chronic kidney disease stage: stage 3 (moderate) Qualified Code(s): N18.3 - Chronic kidney disease, stage 3 (moderate) Code(s): N18.9 - Chronic kidney disease, unspecified Status: Chronic (8) Hyperlipidemia: Qualifiers: Hyperlipidemia type: unspecified Qualified Code(s): E78.5 - Hyperlipidemia, unspecified Code(s): E78.5 - Hyperlipidemia, unspecified Status: Chronic (9) Peripheral neuropathy: Qualifiers: Peripheral neuropathy type: polyneuropathy, unspecified Qualified Code(s): G62.9 - Polyneuropathy, unspecified Code(s): G62.9 - Polyneuropathy, unspecified Status: Chronic (10) Depression: Qualifiers: Depression Type: unspecified Qualified Code(s): F32.9 - Major depressive disorder, single episode, unspecified Code(s): F32.9 - Major depressive disorder, single episode, unspecified Status: Chronic DS: Summary Hospital Course Reason for hospitalization: Syncope. Hospital Course: Date of Service of Discharge: September 03, 2019. History of Present Illness: Patient is an 83-year-old woman with recent hospitalization in July 2019 for fall with fracture of the right humerus. Patient had been in the [facility] program at [facility]. She had recently been discharged home from [facility]. Patient lives alone. On the morning of presentation, patient fell in her bathroom. She reports she was leaving her bathroom when she realized she had fallen. She reports bruise to the right side of her chest. Patient has been having problems with dizziness and room spinning. No recent fever, sweats or chills. No chest pain. No shortness of breath. No abdominal pain. No nausea or vomiting. In the emergency room CT head was negative. She was noted to have slight elevation of troponin. Patient was unsteady. She was therefore placed in observation for further evaluation and treatment. Course in Hospital: Patient was initially placed in the intermediate care unit due to elevated troponin level. Patient had no chest pain. Serial troponin levels were only minimally elevated. EKG with no acute changes. Telem
[2019-09-05 01:31] LABS: Carbamazepine Tegretol 5.4 mcg/mL (4.0-12.0)
== END 2019-09-03 18:38 ==
LOC: ANHED 12:12 → ANHIMU 16:06 → ANH2MED 08-31 13:32
PROVIDERS: Nurse Practitioner; Admitting Provider Hospitalist; Emergency Provider Emergency Medicine; PCP Family Medicine; Visit Provider Hospitalist
DX: R55 Syncope and collapse (principal); R79.89 Other specified abnormal findings of blood chemistry; R42 Dizziness and giddiness; M25.511 Pain in right shoulder; W19.XXXA Unspecified fall, initial encounter; Y93.E8 Activity, other personal hygiene; S42.291D Other displaced fracture of upper end of right humerus, subsequent encounter for fracture with routine healing; W19.XXXD Unspecified fall, subsequent encounter; E11.22 Type 2 diabetes mellitus with diabetic chronic kidney disease; I12.9 Hypertensive chronic kidney disease with stage 1 through stage 4 chronic kidney disease, or unspecified chronic kidney disease; N18.3 Chronic kidney disease, stage 3 (moderate); E11.42 Type 2 diabetes mellitus with diabetic polyneuropathy; E83.42 Hypomagnesemia; E78.5 Hyperlipidemia, unspecified; M10.9 Gout, unspecified; R60.0 Localized edema; F32.9 Major depressive disorder, single episode, unspecified; K21.9 Gastro-esophageal reflux disease without esophagitis; Z79.84 Long term (current) use of oral hypoglycemic drugs; Z79.899 Other long term (current) drug therapy; Z87.81 Personal history of (healed) traumatic fracture; Z91.81 History of falling
CPT/HCPCS: 36415; 70496; 70498; 73030; 73502; 73521; 80048; 80053; 80156; 83735; 83880; 84484; 85025; 93005; 96365; 96366; 96374; 96375; 96376; 97110; 97116; 97161; 97165; 97530; 99285; A9270; G0378; J1815; J3010; J3475; Q9967

== ENCOUNTER 2020-12-12 11:23 | Observation (INO) | payer MEDICARE, SELFPAY ==
[2020-12-12] VITALS (25 sets, daily range): BP systolic 157–238; BP diastolic 49–97; PULSE 57–82; RESP 14–26; TEMP 36.2–36.7; O2SAT 91–99; BMI 22.9
--- NOTE | ~2020-12-12 | CT_ITS ---
EXAMINATION: CT brain wo con DATE: 12/12/2020 13:09 INDICATION: Head injury TECHNIQUE: Computed tomography (CT) of the head was performed without intravenous contrast. Sagittal and coronal reconstructions were performed. The mA was adjusted according to patient size. Iterative reconstruction technique was employed. The dose-length product was 605.33 mGy-cm. COMPARISON: head CT dated 08/30/2019 FINDINGS: No fracture. No acute intracranial hemorrhage, acute infarction or abnormal extra axial fluid collect ion. There is mild scattered white matter hypoattenuation consistent with chronic small vessel ischem ic disease. Symmetric prominence of the sulci consistent with moderate age-appropriate diffuse cerebr al volume loss. Ventricles are normal and symmetric. No mass/mass effect. Changes of bilateral intrao cular lens replacement. The orbits, paranasal sinuses and mastoid air cells are normal. Intracranial calcified cerebral atherosclerosis is noted. IMPRESSION: 1. No fracture or acute intracranial process. 2. Age-related changes including moderate diffuse volume loss and mild scattered white matter hypoatt enuation consistent with chronic small vessel ischemic disease. Reviewed, dictated and finalized at location A. IMPRESSION: 1. No fracture or acute intracranial process. 2. Age-related changes including moderate diffuse volume loss and mild scattere d white matter hypoattenuation consistent with chronic small vessel ischemic di sease.
--- NOTE | ~2020-12-12 | XR_ITS ---
EXAMINATION: XR chest 2V DATE: 12/12/2020 12:01 INDICATION: Dizziness. TECHNIQUE: Frontal and lateral views of the chest were obtained. COMPARISON: Chest 2 views 07/24/2019 FINDINGS: There are small pleural effusions. There is a diffuse interstitial pattern in the lungs, co nsistent with mild pulmonary edema. There are airspace opacities at the lung bases. No pneumothorax. The heart size is normal. Calcified lung nodules and calcified hilar lymph nodes are consistent with old granulomatous disease. There is an old healed fracture of proximal right humerus. IMPRESSION: 1. Mild pulmonary edema. 2. Airspace opacities at the lung bases, consistent with atelectasis versus pneumonia. 3. Small pleural effusions. Reviewed, dictated and finalized at location B. IMPRESSION: 1. Mild pulmonary edema. 2. Airspace opacities at the lung bases, consistent with atelectasis versus pne umonia. 3. Small pleural effusions.
--- NOTE | ~2020-12-12 | CT_ITS ---
EXAMINATION: CTA chest PE protocol DATE: 12/12/2020 14:35 INDICATION: Elevated d-dimer. Dizziness. TECHNIQUE: Computed tomography angiography (CTA) of the chest was performed with 100 mL Omnipaque-350 intravenous contrast timed to evaluate the pulmonary arteries. Coronal maximum intensity projection 3D-reconstructions were created by the technologist. Automated exposure control and iterative reconst ruction technique were employed. Exam dose: 171.87 mGy-cm total exam DLP. COMPARISON: 12/12/2020 2 view chest FINDINGS: There is diagnostic contrast enhancement of the pulmonary arteries and no evidence of pulmo nary embolism. No thoracic aortic aneurysm . Cardiomegaly, coronary artery calcification. There are bilateral lower lobe predominantly dependent infiltrates and/or atelectasis. There are minimal predominantly peripheral upper lobe infiltrates. There are mild bilateral pleural effusions. There is thickening of interlobular septa bilaterally. Mild bilateral perihilar and mediastinal lymph node prominence, likely reactive. Multiple calcified splenic granulomas. Moderately large hiatal hernia. Included skeletal structures are unremarkable. IMPRESSION: Congestive changes, including cardiomegaly, thickened interlobular septa, bilateral pleu ral effusions No evidence of pulmonary embolism Bilateral predominantly dependent lower lobe infiltrate and/or atelectasis Minimal predominantly peripheral upper lobe infiltrates Reviewed, dictated and finalized at Location A. Reviewed, dictated and finalized at location A. IMPRESSION: Congestive changes, including cardiomegaly, thickened interlobular septa, bilateral pleural effusions No evidence of pulmonary embolism Bilateral predominantly dependent lower lobe infiltrate and/or atelectasis Minimal predominantly peripheral upper lobe infiltrates
--- NOTE | 2020-12-12 11:28 | ECG_ITS ---
Measurements Intervals [place] Rate: 58 P: 77 HI: 186 QRS: 85 QRSD: 145 T: 58 QT: 478 QTc: 472 Interpretive Statements SINUS BRADYCARDIA WITH SINUS ARRHYTHMIA RIGHT BUNDLE BRANCH BLOCK BASELINE ARTIFACT- II, III, AVR, AVL, AVF, V4-V6 ABNORMAL ECG Electronically Signed On 12-12-2020 17:17:47 CDT by Zackery Caldera D.O.
[2020-12-12 12:51] LABS: Basophils Percent Auto 0.6 % (0.2-1.2); Eosinophils Absolute Auto 0.1 K/mm3 (0-0.3); Eosinophils Percent Auto 1.8 % (0-4.4); Hematocrit 32.5 % (37.0-47.0); Hemoglobin 10.2 g/dL (12.0-15.0); Immature Granulocyte Absolute 0.01 K/mm3 (0.00-0.031); Immature Granulocyte Percent A 0.2 % (0-0.5); Lymphocytes Absolute Auto 0.53 K/mm3 (0.9-3.2); Lymphocytes Percent Auto 9.8 % (18.3-44.2); Mean Corpuscular HGB Conc 31.4 g/dl (32-36); Mean Corpuscular Hemoglobin 28.1 pg (26-34); Mean Corpuscular Volume 89.5 fl (80-100); Mean Platelet Volume 9.5 fl (7.4-10.4); Monocytes Absolute Auto 0.3 K/mm3 (0.1-0.6); Monocytes Percent Auto 4.6 % (2.6-8.5); Neutrophils Absolute Auto 4.5 K/mm3 (1.3-6.7); Platelet Count Result 180 k/mm3 (150-375); Red Blood Count 3.63 M/mm3 (4.2-5.4); Red Cell Distribution Width 13.5 % (11.5-14.5); White Blood Count 5.4 K/mm3 (4.5-10.0)
[2020-12-12 13:00] LABS: Anion Gap 4 mmol/L (8-16); Blood Urea Nitrogen 21 mg/dL (7-17); Calcium 7.8 mg/dL (8.4-10.2); Carbon Dioxide 28 mmol/L (22-30); Chloride 104 mmol/L (98-107); Estimated CRCL calculation 35 ml/min; Estimated Glomerular Filt Rate 53; Glucose 202 mg/dL (65-105); Potassium 3.8 mmol/L (3.4-5.0); Prothrombin Time 13.6 Seconds (11.1-14.7); Sodium 136 mmol/L (137-145)
[2020-12-12 13:01] LABS: Partial Thromboplastin Time 29.5 SECONDS (22.3-36.8)
--- NOTE | 2020-12-12 13:04 | ED.GENADULT ---
HPI - General Adult General Chief complaint: Fall Stated complaint: FALL/DIZZINESS Time Seen by Provider: 12/12/20 12:08 Source: patient, family and RN notes reviewed Mode of arrival: EMS History of Present Illness HPI narrative: This is an 85 year old female who presents for evaluation of frequent falls and dizziness. Patient has long history of vertigo for which she has been prescribed meclizine and Zofran. Her son states that she fell 2 days ago and she fell today . Patient complains of spinning when she tries to walk. She denies dizziness sitting in bed. Her son states she seems to be weak and she is having difficulty walking. Patient lives alone and he states he will need help getting patient to possibly go to rehab. Patient denies chest pain, cough, sob, vomiting, diarrhea , focal weakness, numbness or tingling. She denies headache or neck pain Related Data Home Medications Medication Instructions Recorded Confirmed Januvia 100 mg PO DAILY 07/24/19 12/12/20 carbamazepine 200 mg PO TID 07/24/19 12/12/20 ezetimibe 10 mg PO DAILY 07/24/19 12/12/20 fluticasone propionate 1 spray INTRANASAL PRN PRN 07/24/19 12/12/20 furosemide 40 mg PO DAILY 07/24/19 12/12/20 metformin 1,000 mg PO DAILY 07/24/19 12/12/20 montelukast 10 mg PO HS 07/24/19 12/12/20 omeprazole 20 mg PO DAILY 07/24/19 12/12/20 paroxetine HCl 40 mg PO DAILY 07/24/19 12/12/20 meclizine 12.5 mg PO QID PRN 12/12/20 12/12/20 metoprolol tartrate 25 mg PO TID 12/12/20 12/12/20 ondansetron 4 mg PO TID PRN 12/12/20 12/12/20 simvastatin 40 mg PO DAILY 12/12/20 12/12/20 Allergies Allergy/AdvReac Type Severity Reaction Status Date / Time influenza A (H1N1) virus Allergy Unknown Swelling Verified 12/12/20 11:39 vaccine [id number] 2008 of Lip/Tongue/Throat Influenza Virus Vaccines Allergy Unknown Swelling Verified 12/12/20 11:39 of Lip/Tongue/Throat phenobarbital Allergy Unknown Unknown Verified 12/12/20 11:39 Review of Systems Review of Systems: All systems reviewed & are unremarkable except as noted in HPI and below PMFSH Past Medical History Medical History (Updated 12/12/20 @ 22:37 by Susana Marcus MD) Anemia History of blood transfusions. Arthritis Chronic kidney disease, stage 3 Depression Diabetic peripheral neuropathy Diverticulitis Fracture of proximal end of right humerus (07/24/19) Gastroesophageal reflux GI bleed History of rectal polyps Hyperlipidemia Hypertension Sinus problem Type 2 diabetes mellitus Surgical History Surgical History (Updated 12/12/20 @ 18:48 by Evie Riddle PA-C) Fracture of right hip requiring operative repair History of appendectomy History of bilateral cataract extraction History of colon resection History of hysterectomy History of inguinal hernia repair History of rectal polypectomy Family History Family History Sibling Carcinoma of colon Father Black lung disease Heart disease Hypertension Mother Hypertension Other Diabetes mellitus Family history of arthritis Family history of gout Family history of heart disease in male family member before age 55 Family history of kidney disease Social History Social History (Updated 12/12/20 @ 18:49 by Evie Riddle PA-C) Social History: The patient is and lives in her own home in [place]. She has 2 sons and designates her son Ag Marrero as her surrogate decision maker. She wishes to be a full code. 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 Lifelong nonsmoker. No alcohol or illicit substance use. Exam Const: General: no acute distress and alert Orientation/consciousness: patient oriented x3 HENMT: Ears: TM abnormal obstructed by cerumen Eyes: Pupils: Equal, round and reactive pupils present EOM: EOMs intact bilaterally Neck: Neck: normal visual inspection Resp: Effort & Inspection: normal respirat
[2020-12-12 13:29] LABS: Troponin I 0.039 ng/mL (0.000-0.034)
[2020-12-12 13:48] LABS: Alveolar/Arterial O2 Gradient 30.9 mmHg; Base Excess ABG -2.9 mEq/l (+/-2.0); Carboxyhemoglobin 0.1 % THb (0-2.0); Fractional Inspired Oxygen 21 %; HCO3 ABG 22.4 mEq/l (22.0-26.0); Methemoglobin ABG 0.1 %THb (0-1.5); Oxygen Content ABG 14.1 %vol (16.0-22.0); Oxygen Saturation ABG 93.6 % (95.0-100.0); Oxyhemoglobin 92.3 % THb (90.0-100.0); PCO2 ABG 40.5 mmHg (35.0-45.0); PO2 ABG 70.3 mmHg (80.0-100.0); PO2 FiO2 Ratio Arterial Blood 3.35 %; Reduced Hemoglobin 7.5 %THb (0-5.0); Total Hemoglobin 10.8 g/dL (12.0-18.0)
[2020-12-12 13:49] LABS: Device ROOM AIR; Site Drawn LEFT BRACHIAL
[2020-12-12 14:09] LABS: D Dimer 2.53 ug/mL (<0.48)
[2020-12-12] MEDS: MECLIZINE HCL 25 MG TABLET PO (14:15)
[2020-12-12] MEDS: ONDANSETRON INJ 4 MG/2 ML VIAL IV PUSH (14:15)
[2020-12-12 14:31] LABS: Alanine Aminotransferase 8 U/L (4-35); Albumin Level 3.7 g/dL (3.5-5.1); Alkaline Phosphatase 93 U/L (38-126); Aspartate Amino Transferase 26 U/L (14-36); Bilirubin,Total 0.3 mg/dL (0.2-1.3)
[2020-12-12 15:18] LABS: Add Urine Microscopic? YES; Appearance Urine Cloudy (Clear); Bacteria Urine 1+ /hpf; Bilirubin Urine Negative (Negative); Blood Urine 1+ (Negative); Color Urine Yellow (Yellow); Glucose Urine UA Negative (Negative); Ketones Urine Negative (Negative); Leukocyte Esterase Ur Trace LEU/UL (Negative); Mucus Urine Rare /lpf; Nitrate Urine Negative (Negative); Protein Urine 3+ mg/dL (Negative); RBC Urine 0-2 /hpf (0-2); Specific Grav Ur 1.013 (1.001-1.035); Squamous Epithelial Cell Urine Moderate /hpf (Few); Urobilinogen Urine Negative mg/dL (<2.0); WBC Urine 21-30 /hpf
[2020-12-12 15:19] LABS: Troponin I 0.046 ng/mL (0.000-0.034)
[2020-12-12] MEDS: hydrALAZINE HCL 20 MG/ML VIAL 10 MG IV PUSH ×2 (15:38→18:20)
[2020-12-12] MEDS: FUROSEMIDE INJ 40 MG/4 ML VIAL IV PUSH ×2 (15:38→20:58)
--- NOTE | 2020-12-12 15:43 | PC.NURSE ---
Admission orders received, awaiting bed assignment. Pt states nausea and dizziness has improved.
--- NOTE | 2020-12-12 17:03 | PCCCNOTE ---
Care Coordination visited pt and her son in ED to discuss plan of care after discharge from hospital. Pt and son states she had a fall at home and has been getting weaker and needs rehab. Pt would like to go to [facility] in [place] or [facility]. Pt reports she her PMD has told her not to take Covid immunization at this time due to her allergy to the flu vaccination. Pt will need a Covid test prior discharge.
[2020-12-12 18:19] LABS: Troponin I 0.056 ng/mL (0.000-0.034)
--- NOTE | 2020-12-12 18:30 | PM.IMHP ---
H&P: HPI History of Present Illness Date/Time: 12/12/20 19:00 Chief Complaint: Dizziness, falls. Narrative: This is a pleasant 85-year-old female with hypertension, diabetes, dyslipidemia, and vertigo who presented to the emergency department earlier today from home with complaints of dizziness and falls. She lives alone and it sounds like she has a walker available to her however I am not certain she uses it all of the time. Just prior to arrival she was ambulating to the bathroom when she began to feel dizzy (similar to her ongoing issues with vertigo) and she fell forward, striking the right side of her forehead on a nearby chest of drawers. She had a fall a couple of days ago under similar circumstances. Not long after the fall she began to feel nauseated and had 1 episode of emesis. In the emergency department her blood pressure was as high as 233/89 and she thinks that she likely vomited up her medication as she has never seen her blood pressure that high before and she monitors it daily. Typically her systolics will be in the 140s to 150s. Despite hydralazine emergency department her blood pressures have continued to be high and she is being admitted in this setting. At the time my evaluation she is eating dinner and has no complaints aside from a mild posterior headache. She currently denies vertigo, blurry vision, focal weakness, paresthesias, chest pain, and shortness of breath. No orthopnea, PND, or lower extremity edema to her knowledge though she does have trace edema. She denies loss of consciousness in the falls and she has not sustained any injuries, luckily. Review of Systems Review of Systems: Narrative: Twelve systems were reviewed with pertinent positives and negatives as per HPI. She reports having a good appetite but has lost 30 pounds unintentionally over the last several years. No history of malignancy. Appetite has been good. One episode of emesis after her fall today as detailed above. No diarrhea or constipation. She has been having issues with urinary incontinence, frequency, and dysuria for the past 2 days. No fever, chills, or sweats. She denies lower abdominal and back pain. She monitors her glucose at least 2 times a day, reporting that is typically highest in the mornings and is not unusual for to be around 180 at that time. No blurry vision, polydipsia, or polyuria. Except as documented, all other systems were reviewed and are negative. [facility] Past Medical History Medical History (Updated 12/12/20 @ 18:52 by Evie Riddle PA-C) Anemia History of blood transfusions. Arthritis Chronic kidney disease, stage 3 Depression Diabetic peripheral neuropathy Diverticulitis Fracture of proximal end of right humerus (07/24/19) Gastroesophageal reflux GI bleed History of rectal polyps Hyperlipidemia Hypertension Sinus problem Type 2 diabetes mellitus Surgical History Surgical History (Updated 12/12/20 @ 18:48 by Evie Riddle PA-C) Fracture of right hip requiring operative repair History of appendectomy History of bilateral cataract extraction History of colon resection History of hysterectomy History of inguinal hernia repair History of rectal polypectomy Family History Family History Sibling Carcinoma of colon Father Black lung disease Heart disease Hypertension Mother Hypertension Other Diabetes mellitus Family history of arthritis Family history of gout Family history of heart disease in male family member before age 55 Family history of kidney disease Social History Social History (Updated 12/12/20 @ 18:49 by Evie Riddle PA-C) Social History: The patient is and lives in her own home in [place]. She has 2 sons and designates her son Ag Marrero as her surrogate decision maker. She wishes to be a full code. 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 Lifelong nonsmoker. No alcoh
[2020-12-12 20:54] LABS: Glucose Point of Care 226 (65-105)
[2020-12-12] MEDS: MONTELUKAST SODIUM 10 MG TABLET PO (20:59)
[2020-12-12] MEDS: amLODIPine BESYLATE 5 MG TABLET 10 MG PO (20:59)
[2020-12-12] MEDS: traZODone HCL 50 MG TABLET PO (20:59)
[2020-12-12 21:59] LABS: Hemoglobin A1C 6.8 % (<5.7)
[2020-12-13] VITALS (19 sets, daily range): BP systolic 137–193; BP diastolic 56–76; PULSE 65–136; RESP 16–18; TEMP 36.2–37.1; O2SAT 95–99
[2020-12-13] MEDS: hydrALAZINE HCL 20 MG/ML VIAL 10 MG IV PUSH ×2 (03:15→21:12)
[2020-12-13 05:47] LABS: Hematocrit 34.4 % (37.0-47.0); Hemoglobin 10.9 g/dL (12.0-15.0); Mean Corpuscular HGB Conc 31.7 g/dl (32-36); Mean Corpuscular Volume 88.4 fl (80-100); Mean Platelet Volume 9.9 fl (7.4-10.4); Platelet Count Result 234 k/mm3 (150-375); Red Blood Count 3.89 M/mm3 (4.2-5.4); Red Cell Distribution Width 13.7 % (11.5-14.5); White Blood Count 7.1 K/mm3 (4.5-10.0)
[2020-12-13 06:04] LABS: Anion Gap 5 mmol/L (8-16); Blood Urea Nitrogen 18 mg/dL (7-17); Calcium 8.3 mg/dL (8.4-10.2); Carbon Dioxide 31 mmol/L (22-30); Chloride 102 mmol/L (98-107); Estimated CRCL calculation 38 ml/min; Estimated Glomerular Filt Rate 60; Glucose 182 mg/dL (65-105); Magnesium 0.9 mg/dL (1.6-2.3); Potassium 3.4 mmol/L (3.4-5.0); Sodium 138 mmol/L (137-145)
[2020-12-13] MEDS: PARoxetine 20 MG TABLET 40 MG PO (08:58)
[2020-12-13] MEDS: carBAMazepine 200 MG TABLET PO ×3 (08:58→16:57)
[2020-12-13] MEDS: METOPROLOL TARTRATE 25 MG TABLET PO ×3 (08:58→16:57)
[2020-12-13] MEDS: SIMVASTATIN 20 MG TABLET 40 MG PO (08:58)
[2020-12-13] MEDS: MAGNESIUM OXIDE 400 MG TABLET PO (08:58)
[2020-12-13] MEDS: amLODIPine BESYLATE 5 MG TABLET PO (08:58)
[2020-12-13] MEDS: MECLIZINE HCL 12.5 MG TABLET PO (08:58)
[2020-12-13] MEDS: EZETIMIBE 10 MG TABLET PO (08:58)
[2020-12-13] MEDS: PANTOPRAZOLE 40 MG TABLET PO (08:58)
[2020-12-13 09:01] LABS: Glucose Point of Care 196 (65-105)
[2020-12-13] MEDS: FUROSEMIDE INJ 40 MG/4 ML VIAL IV PUSH ×2 (09:02→16:58)
[2020-12-13] MEDS: MAGNESIUM SULF 2 GM/WATER 50ML 2 GM/50 ML BAG IVPB (09:05)
[2020-12-13] MEDS: INSULIN ASPART (*BKC) 100 UNITS/ML SUB-Q (12:27)
[2020-12-13 13:03] LABS: Glucose Point of Care 207 (65-105)
--- NOTE | 2020-12-13 15:58 | PM.IMPN ---
Progress Note: A&P Assessment and Plan (1) Fall: Qualifiers: Encounter type: initial encounter Qualified Code(s): W19.XXXA - Unspecified fall, initial encounter Code(s): W19.XXXA - Unspecified fall, initial encounter Status: Acute Assessment and Plan: The patient has had a couple of falls in last 1 week which she attributes to vertigo. Son believes that she has gotten progressively more weak as well and think she may need rehab before returning home. Initiate fall precautions. PT/OT consulted. 12/13/20 15:58 Patient 85-year-old female with history of vertigo for which patient is prescribed meclizine and Zofran, patient's symptoms the room is spinning, patient is supposed to be using her walker to ambulate in the house, patient lives alone patient had a fall 2 days ago and again today patient fell at home and her son brought to the emergency department upon arrival patient blood pressure was significantly elevated 233/89 most likely secondary to stress from fall his blood pressure is trending down, patient has no complaint of chest pain shortness of breath palpitation fever or chills, patient's son is concerned the patient is weak and debilitated leading to fall, patient will benefit from physical therapy as well as acute rehab before returning home. Will have a PT OT evaluate the patient and further recommendation to follow, to further evaluate patient had a CT scan of the head no acute injury, CTA did not show any pulmonary emboli but does show pulmonary congestion, cardiac echo is pending will follow-up. (2) Vertigo: Code(s): R42 - Dizziness and giddiness Status: Acute Assessment and Plan: An ongoing issue for this patient. Meclizine available p.r.n.. PT/OT consulted as above. (3) Hypertensive urgency: Code(s): I16.0 - Hypertensive urgency Status: Acute Assessment and Plan: Patient took her antihypertensives this morning however vomited shortly thereafter. Will give 1 time dose of amlodipine this evening and continue the rest of her medication. Her elevated blood pressures may be playing a role in her vertigo as well. No evidence of end-organ damage. (4) Congestive heart failure: Code(s): I50.9 - Heart failure, unspecified Status: Acute Assessment and Plan: Suggestions of CHF include pulmonary edema and cardiomegaly noted on imaging today. Cautious diuresis with close monitoring of volume status and renal function. Echocardiogram in a.m. (5) Urinary tract infection: Code(s): N39.0 - Urinary tract infection, site not specified Status: Acute Assessment and Plan: She has had symptoms of the same for the past 2 days. Start ceftriaxone, pending urine culture. (6) Type 2 diabetes mellitus: Code(s): E11.9 - Type 2 diabetes mellitus without complications Status: Acute Assessment and Plan: Metformin on hold while hospitalized. Initiate sliding scale insulin, Accu-Cheks, and hypoglycemic protocol. Check hemoglobin A1c. (7) Chronic kidney disease, stage 3: Code(s): N18.30 - Chronic kidney disease, stage 3 unspecified Status: Acute Assessment and Plan: Monitor creatinine closely while diuresing. (8) Anemia: Code(s): D64.9 - Anemia, unspecified Status: Chronic Assessment and Plan: Hemoglobin and hematocrit are stable on review of previous labs. Subjective Date/time seen: 12/13/20 15:58 Patient 85-year-old female with history of vertigo for which patient is prescribed meclizine and Zofran, patient's symptoms the room is spinning, patient is supposed to be using her walker to ambulate in the house, patient lives alone patient had a fall 2 days ago and again today patient fell at home and her son brought to the emergency department upon arrival patient blood pressure was significantly elevated 233/89 most likely secondary to stress from fall his blood
[2020-12-13 17:28] LABS: Glucose Point of Care 154 (65-105)
--- NOTE | 2020-12-13 18:56 | ECHO_ITS ---
Patient Info Name: Elizabeth Negron Age: 85 years : 1935 Gender: Female Ht: 66 in Wt: 150 lbs BSA: 1.79 m2 HR: 84 bpm BP: 157 / 62 mmHg Heart Rhythm: Sinus Rhythm Technical Quality: Good Exam Date: 12/13/2020 7:59 AM Exam Location: [facility]monary Patient Status: Inpatient Admit Date: 12/12/2020 Staff Ordering Physician: Evie Riddle PA-C Hand Shaper: Carrol Lam RDCS Attending Provider: Joni Mckeon MD Referring Physician: Venkatesh DUNBAR; Exam Type: CA echo doppler color flow Study Info Complete two-dimensional, color flow and Doppler transthoracic echocardiogram is performed. Summary 1. Complete two-dimensional, color flow and Doppler transthoracic echocardiogram is performed. 2. Normal left ventricular size with moderate concentric left ventricular hypertrophy. Overall good left ventricular systolic function, measured EF 62%, visual estimate is 60-65%. There is hypokinesis of the basal inferoseptal segment. Grade 1 diastolic dysfunction is present. 3. Left atrial chamber dimension is moderately enlarged. 4. No pulmonary hypertension. 5. No significant valve disease. 6. Atrial septal aneurysm noted. 7. Left pleural effusion present. 8. Normal sinus rhythm. Left Ventricle Left ventricular chamber dimension is normal. Left ventricular systolic function is normal, estimated at 60-65%. There is moderately increased left ventricular wall thickness. Left ventricular septal wall motion is normal. The left ventricular diastolic function is grade I diastolic dysfunction. Right Ventricle Right ventricular chamber dimension is normal. Right ventricular systolic function is normal. Left Atria Left atrial chamber dimension is moderately enlarged. Right Atria Right atrial chamber dimension is normal. Aortic Valve The aortic valve is trileaflet. There is mild aortic valve sclerosis. There is no aortic valve stenosis. There is no aortic valve regurgitation. Pulmonic Valve The pulmonic valve is normal. There is no pulmonic valve stenosis. There is no pulmonic regurgitation. Mitral Valve The mitral valve has normal leaflets. There is no mitral valve stenosis. There is trace mitral valve regurgitation. Tricuspid Valve The tricuspid valve leaflets are normal. There is no significant tricuspid valve stenosis. There is trace tricuspid valve regurgitation. No pulmonary hypertension. Pericardium/Pleural The pericardium appears normal. There is no pericardial effusion. Inferior Vena Cava Normal inferior vena cava with >50% collapse upon inspiration consistent with Empty right atrial pressure, Empty. Aorta The aortic root size at the sinus of Valsalva is normal. The prox ascending aorta size is normal. Left Ventricular Outflow Tract Name Value Normal LVOT 2D LVOT Diameter 1.9 cm LVOT Doppler LVOT Peak Velocity 136 cm/s LVOT Peak Gradient 6 mmHg LVOT Mean Gradient 3 mmHg LVOT VTI 28 cm LVOT VTI/AV VTI Ratio
[2020-12-13] MEDS: traZODone HCL 50 MG TABLET PO (21:08)
[2020-12-13] MEDS: MONTELUKAST SODIUM 10 MG TABLET PO (21:08)
[2020-12-13 21:09] LABS: Glucose Point of Care 175 (65-105)
[2020-12-13 23:33] LABS: SARS-CoV-2 RNA PCR Negative
[2020-12-14] VITALS (12 sets, daily range): BP systolic 144–158; BP diastolic 50–71; PULSE 47–78; RESP 15–20; TEMP 36.2–36.7; O2SAT 95–99
[2020-12-14 05:52] LABS: Hematocrit 28.5 % (37.0-47.0); Hemoglobin 9.2 g/dL (12.0-15.0); Mean Corpuscular HGB Conc 32.3 g/dl (32-36); Mean Corpuscular Hemoglobin 27.7 pg (26-34); Mean Corpuscular Volume 85.8 fl (80-100); Mean Platelet Volume 9.8 fl (7.4-10.4); Platelet Count Result 201 k/mm3 (150-375); Red Blood Count 3.32 M/mm3 (4.2-5.4); Red Cell Distribution Width 13.7 % (11.5-14.5); White Blood Count 4.6 K/mm3 (4.5-10.0)
[2020-12-14 06:00] LABS: Anion Gap 3 mmol/L (8-16); Blood Urea Nitrogen 27 mg/dL (7-17); Calcium 7.5 mg/dL (8.4-10.2); Carbon Dioxide 32 mmol/L (22-30); Chloride 100 mmol/L (98-107); Estimated CRCL calculation 29 ml/min; Estimated Glomerular Filt Rate 43; Glucose 147 mg/dL (65-105); Magnesium 1.3 mg/dL (1.6-2.3); Potassium 3.5 mmol/L (3.4-5.0); Sodium 135 mmol/L (137-145)
[2020-12-14 07:58] LABS: Glucose Point of Care 170 (65-105)
[2020-12-14] MEDS: EZETIMIBE 10 MG TABLET PO (08:14)
[2020-12-14] MEDS: PARoxetine 20 MG TABLET 40 MG PO (08:14)
[2020-12-14] MEDS: FUROSEMIDE INJ 40 MG/4 ML VIAL IV PUSH ×2 (08:14→17:17)
[2020-12-14] MEDS: METOPROLOL TARTRATE 25 MG TABLET PO ×2 (08:14→12:43)
[2020-12-14] MEDS: SIMVASTATIN 20 MG TABLET 40 MG PO (08:14)
[2020-12-14] MEDS: PANTOPRAZOLE 40 MG TABLET PO (08:15)
[2020-12-14] MEDS: MAGNESIUM OXIDE 400 MG TABLET PO (08:15)
[2020-12-14] MEDS: carBAMazepine 200 MG TABLET PO ×3 (08:15→17:17)
[2020-12-14] MEDS: amLODIPine BESYLATE 5 MG TABLET PO (08:15)
[2020-12-14] MEDS: POTASSIUM CHLORIDE 20 MEQ TABLET 40 MEQ PO (10:16)
[2020-12-14] MEDS: MAGNESIUM SULF 2 GM/WATER 50ML 2 GM/50 ML BAG IVPB (10:16)
[2020-12-14] MEDS: INSULIN ASPART (*BKC) 100 UNITS/ML SUB-Q (11:59)
[2020-12-14 12:45] LABS: Glucose Point of Care 254 (65-105)
--- NOTE | 2020-12-14 14:55 | P.PNIM_ITS ---
Progress Note: A&P Assessment and Plan (1) Fall: Qualifiers: Encounter type: initial encounter Qualified Code(s): W19.XXXA - Unspecified fall, initial encounter Code(s): W19.XXXA - Unspecified fall, initial encounter Status: Acute Assessment and Plan: The patient has had a couple of falls in last 1 week which she attributes to vertigo. Son believes that she has gotten progressively more weak as well and think she may need rehab before returning home. Initiate fall precautions. PT/OT consulted. 12/14/20 14:55 Patient 85-year-old female with history of vertigo for which patient is prescribed meclizine and Zofran, patient's symptoms the room is spinning, patient is supposed to be using her walker to ambulate in the house, patient lives alone patient had a fall 2 days ago and again today patient fell at home and her son brought to the emergency department upon arrival patient blood pr essure was significantly elevated 233/89 most likely secondary to stress from fall his blood pressure is trending down, patient has no complaint of chest pain shortness of breath palpitation fever or chills, patient's son is concerned the patient is weak and debilitated leading to fall, patient will benefit from physical therapy as well as acute rehab before returning home. Will have a PT OT evaluate the patient and further recommendation to follow, to further evaluate patient had a CT scan of the head no acute injury, CTA did not show any pulmonary emboli but does show pulmonary congestion, cardiac echo is pending will follow-up. 12/14 today patient please much better not as dizzy, able to ambulate denies any chest pain shortness of breath palpitation fever or chills, cardiac echo showed normal systolic function with ejection fraction of 65%, there is there is hypokinesis of the basal anteroseptal segment, and grade 1 diastolic dysfunction, patient urine culture is growing E coli resistant to Rocephin, will start the patient on Cefepime, patient will continue to work with PT OT patient will benefit acute rehab before going home. (2) Vertigo: Code(s): R42 - Dizziness and giddiness Status: Acute Assessment and Plan: An ongoing issue for this patient. Meclizine available p.r.n.. PT/OT consulted as above. (3) Hypertensive urgency: Code(s): I16.0 - Hypertensive urgency Status: Acute Assessment and Plan: Patient took her antihypertensives this morning however vomited shortly thereafter. Will give 1 time dose of amlodipine this evening and continue the rest of her medication. Her elevated blood pressures may be playing a role in her vertigo as well. No evidence of end-organ damage. (4) Congestive heart failure: Code(s): I50.9 - Heart failure, unspecified Status: Acute Assessment and Plan: Suggestions of CHF include pulmonary edema and cardiomegaly noted on imaging today. Cautious diuresis with close monitoring of volume status and renal function. Echocardiogram in a.m. (5) Urinary tract infection: Code(s): N39.0 - Urinary tract infection, site not specified Status: Acute Assessment and Plan: She has had symptoms of the same for the past 2 days. Start ceftriaxone, pending urine culture. (6) Type 2 diabetes mellitus: Code(s): E11.9 - Type 2 diabetes mellitus without complications Status: Acute Assessment and Plan: Metformin on hold while hospitalized. Initiate sliding scale insulin, Accu- Cheks, and hypoglycemic protocol. Check hemoglobin A1c. (7) Chronic kidney disease, stage 3: Code(s): N18.30
[2020-12-14 16:48] LABS: Glucose Point of Care 181 (65-105)
[2020-12-14] MEDS: traZODone HCL 50 MG TABLET PO (20:14)
[2020-12-14] MEDS: MONTELUKAST SODIUM 10 MG TABLET PO (20:15)
[2020-12-14 20:32] LABS: Glucose Point of Care 231 (65-105)
--- NOTE | 2020-12-14 23:40 | PC.NURSE ---
This patient, Elizabeth Negron, was transferred to [302 ] on 12/14/20 at 2340. Personal belongings sent with patient. Report given to [ Silvia]. Appropriate documentation sent with patient.
--- NOTE | 2020-12-14 23:43 | PC.NURSE ---
This patient, Elizabeth Negron, was transferred from IMU @ 23:40 to 3rd [facility] Surg room 302
[2020-12-15 06:00] VITALS: BP 157/65; PULSE 62; RESP 20; TEMP 36.2; O2SAT 97
[2020-12-15 06:26] LABS: Hematocrit 28.1 % (37.0-47.0); Hemoglobin 8.7 g/dL (12.0-15.0); Mean Corpuscular Hemoglobin 27.5 pg (26-34); Mean Corpuscular Volume 88.9 fl (80-100); Mean Platelet Volume 9.6 fl (7.4-10.4); Platelet Count Result 194 k/mm3 (150-375); Red Blood Count 3.16 M/mm3 (4.2-5.4); Red Cell Distribution Width 13.7 % (11.5-14.5); White Blood Count 4.1 K/mm3 (4.5-10.0)
[2020-12-15 06:47] LABS: Anion Gap 4 mmol/L (8-16); Blood Urea Nitrogen 33 mg/dL (7-17); Calcium 7.8 mg/dL (8.4-10.2); Carbon Dioxide 31 mmol/L (22-30); Chloride 98 mmol/L (98-107); Estimated CRCL calculation 27 ml/min; Estimated Glomerular Filt Rate 39; Glucose 157 mg/dL (65-105); Magnesium 1.6 mg/dL (1.6-2.3); Potassium 3.6 mmol/L (3.4-5.0); Sodium 133 mmol/L (137-145)
[2020-12-15 08:07] LABS: Glucose Point of Care 151 (65-105)
[2020-12-15] MEDS: FUROSEMIDE INJ 40 MG/4 ML VIAL IV PUSH (08:19)
[2020-12-15] MEDS: EZETIMIBE 10 MG TABLET PO (08:20)
[2020-12-15] MEDS: carBAMazepine 200 MG TABLET PO ×2 (08:20→13:01)
[2020-12-15] MEDS: amLODIPine BESYLATE 5 MG TABLET PO (08:20)
[2020-12-15] MEDS: MAGNESIUM OXIDE 400 MG TABLET PO (08:20)
[2020-12-15] MEDS: PANTOPRAZOLE 40 MG TABLET PO (08:20)
[2020-12-15 08:21] VITALS: PULSE 72
[2020-12-15] MEDS: SIMVASTATIN 20 MG TABLET 40 MG PO (08:21)
[2020-12-15] MEDS: PARoxetine 20 MG TABLET 40 MG PO (08:21)
[2020-12-15] MEDS: METOPROLOL TARTRATE 25 MG TABLET PO ×2 (08:21→13:01)
[2020-12-15] MEDS: INSULIN ASPART (*BKC) 100 UNITS/ML SUB-Q (11:37)
--- NOTE | 2020-12-15 11:46 | PM.DS ---
DS: Admitting Diagnosis Admitting Diagnosis Admitting Diagnosis: Chief Complaint: Dizziness, falls. DS: Discharge Diagnosis Discharge Diagnosis (1) Fall: Qualifiers: Encounter type: initial encounter Qualified Code(s): W19.XXXA - Unspecified fall, initial encounter Code(s): W19.XXXA - Unspecified fall, initial encounter Status: Acute Assessment and Plan: The patient has had a couple of falls in last 1 week which she attributes to vertigo. Son believes that she has gotten progressively more weak as well and think she may need rehab before returning home. Initiate fall precautions. PT/OT consulted. 12/14/20 14:55 Patient 85-year-old female with history of vertigo for which patient is prescribed meclizine and Zofran, patient's symptoms the room is spinning, patient is supposed to be using her walker to ambulate in the house, patient lives alone patient had a fall 2 days ago and again today patient fell at home and her son brought to the emergency department upon arrival patient blood pressure was significantly elevated 233/89 most likely secondary to stress from fall his blood pressure is trending down, patient has no complaint of chest pain shortness of breath palpitation fever or chills, patient's son is concerned the patient is weak and debilitated leading to fall, patient will benefit from physical therapy as well as acute rehab before returning home. Will have a PT OT evaluate the patient and further recommendation to follow, to further evaluate patient had a CT scan of the head no acute injury, CTA did not show any pulmonary emboli but does show pulmonary congestion, cardiac echo is pending will follow-up. 12/14 today patient please much better not as dizzy, able to ambulate denies any chest pain shortness of breath palpitation fever or chills, cardiac echo showed normal systolic function with ejection fraction of 65%, there is there is hypokinesis of the basal anteroseptal segment, and grade 1 diastolic dysfunction, patient urine culture is growing E coli resistant to Rocephin, will start the patient on Cefepime, patient will continue to work with PT OT patient will benefit acute rehab before going home. (2) Vertigo: Code(s): R42 - Dizziness and giddiness Status: Acute Assessment and Plan: An ongoing issue for this patient. Meclizine available p.r.n.. PT/OT consulted as above. (3) Hypertensive urgency: Code(s): I16.0 - Hypertensive urgency Status: Acute Assessment and Plan: Patient took her antihypertensives this morning however vomited shortly thereafter. Will give 1 time dose of amlodipine this evening and continue the rest of her medication. Her elevated blood pressures may be playing a role in her vertigo as well. No evidence of end-organ damage. (4) Congestive heart failure: Code(s): I50.9 - Heart failure, unspecified Status: Acute Assessment and Plan: Suggestions of CHF include pulmonary edema and cardiomegaly noted on imaging today. Cautious diuresis with close monitoring of volume status and renal function. Echocardiogram in a.m. (5) Urinary tract infection: Code(s): N39.0 - Urinary tract infection, site not specified Status: Acute Assessment and Plan: She has had symptoms of the same for the past 2 days. Start ceftriaxone, pending urine culture. (6) Type 2 diabetes mellitus: Code(s): E11.9 - Type 2 diabetes mellitus without complications Status: Acute Assessment and Plan: Metformin on hold while hospitalized. Initiate sliding scale insulin, Accu-Cheks, and hypoglycemic protocol. Check hemoglobin A1c. (7) Chronic kidney disease, stage 3: Code(s): N18.30 - Chronic kidney disease, stage 3 unspecified Status: Acute Assessment and Plan: Monitor creatinine closely while diuresing. (8) Anemia: Code(s): D64.9 - Anemia, unspecified Status: [facility]
[2020-12-15 11:48] LABS: Glucose Point of Care 237 (65-105)
[2020-12-15 13:01] VITALS: PULSE 64
[2020-12-15 18:48] LABS: SARS-CoV-2 RNA PCR Negative
[2020-12-18 19:28] LABS: Carbamazepine Tegretol 7.2 mcg/mL (4.0-12.0)
== END 2020-12-15 14:15 ==
LOC: ANHED 12:08 → ANHIMU 16:06 → ANH3MEDSUR 12-14 23:39
PROVIDERS: Emergency Medicine; Physician Assistant; Admitting Provider Family Medicine; Emergency Provider General Practice; PCP Family Medicine; Visit Provider Family Medicine
DX: R42 Dizziness and giddiness (principal); W19.XXXA Unspecified fall, initial encounter; Z20.828 Contact with and (suspected) exposure to other viral communicable diseases; N39.0 Urinary tract infection, site not specified; B96.20 Unspecified Escherichia coli [E. coli] as the cause of diseases classified elsewhere; D64.9 Anemia, unspecified; E11.22 Type 2 diabetes mellitus with diabetic chronic kidney disease; I16.0 Hypertensive urgency; I12.9 Hypertensive chronic kidney disease with stage 1 through stage 4 chronic kidney disease, or unspecified chronic kidney disease; N18.30 Chronic kidney disease, stage 3 unspecified; R29.6 Repeated falls; Z79.84 Long term (current) use of oral hypoglycemic drugs
CPT/HCPCS: 36415; 36600; 70450; 71046; 71275; 80048; 80076; 80156; 81001; 82375; 82805; 82948; 83036; 83050; 83735; 84443; 84484; 85025; 85027; 85380; 85610; 85730; 87077; 87086; 87088; 87186; 93005; 93306; 96365; 96366; 96367; 96375; 96376; 97161; 97165; 97535; 99285; A9270; C9803; G0378; J0360; J0692; J0696; J1815; J1940; J2405; J3475; Q9967; U0003; U0005

== ENCOUNTER 2021-03-31 18:24 | Emergency (ER) | payer MEDICARE, SELFPAY ==
--- NOTE | ~2021-03-31 | XR_ITS ---
EXAMINATION: XR chest 2V DATE: 03/31/2021 19:43 INDICATION: Weakness. TECHNIQUE: Frontal and lateral views of the chest were obtained. COMPARISON: Chest 2 views 12/12/2020, chest CT 12/12/2020 FINDINGS: Calcified left lung nodules and calcified hilar lymph nodes are consistent with old granulo matous disease. There is a moderate-sized hiatal hernia. No pleural effusion or pneumothorax. Cardiom egaly is noted. There is an old healed fracture of proximal right humerus. IMPRESSION: 1. Moderate-sized hiatal hernia. 2. Cardiomegaly. Reviewed, dictated and finalized at location A.
[2021-03-31 18:57] VITALS: BP 147/68; PULSE 65; RESP 18; TEMP 36.8; O2SAT 98
[2021-03-31 19:24] LABS: Basophils Percent Auto 0.6 % (0.2-1.2); Eosinophils Absolute Auto 0.2 K/mm3 (0-0.3); Eosinophils Percent Auto 4.2 % (0-4.4); Hematocrit 32.9 % (37.0-47.0); Hemoglobin 10.6 g/dL (12.0-15.0); Immature Granulocyte Absolute 0.03 K/mm3 (0.00-0.031); Immature Granulocyte Percent A 0.6 % (0-0.5); Lymphocytes Absolute Auto 1.13 K/mm3 (0.9-3.2); Lymphocytes Percent Auto 20.8 % (18.3-44.2); Mean Corpuscular HGB Conc 32.2 g/dl (32-36); Mean Corpuscular Hemoglobin 29.5 pg (26-34); Mean Corpuscular Volume 91.6 fl (80-100); Mean Platelet Volume 9.3 fl (7.4-10.4); Monocytes Absolute Auto 0.4 K/mm3 (0.1-0.6); Monocytes Percent Auto 7.9 % (2.6-8.5); Neutrophils Absolute Auto 3.6 K/mm3 (1.3-6.7); Neutrophils Percent Auto 65.9 % (45.5-73.1); Platelet Count Result 188 k/mm3 (150-375); Red Blood Count 3.59 M/mm3 (4.2-5.4); Red Cell Distribution Width 14.6 % (11.5-14.5); White Blood Count 5.4 K/mm3 (4.5-10.0)
[2021-03-31 19:37] LABS: Alanine Aminotransferase 21 U/L (4-35); Alkaline Phosphatase 90 U/L (38-126); Anion Gap 7 mmol/L (8-16); Aspartate Amino Transferase 34 U/L (14-36); Bilirubin,Total 0.4 mg/dL (0.2-1.3); Blood Urea Nitrogen 45 mg/dL (7-17); Calcium 8.9 mg/dL (8.4-10.2); Carbon Dioxide 28 mmol/L (22-30); Chloride 102 mmol/L (98-107); Estimated CRCL calculation 28 ml/min; Estimated Glomerular Filt Rate 39; Glucose 259 mg/dL (65-110); Sodium 137 mmol/L (137-145)
[2021-03-31 23:48] VITALS: BP 163/65; PULSE 64; RESP 19; O2SAT 99
--- NOTE | 2021-04-01 00:22 | ECG_ITS ---
Measurements Intervals [place] Rate: 64 P: 82 [place]: 191 QRS: 93 QRSD: 137 T: 53 QT: 494 QTc: 513 Interpretive Statements SINUS RHYTHM ATRIAL AND VENTRICULAR PREMATURE COMPLEXES RIGHT BUNDLE BRANCH BLOCK BASELINE WANDER- AVR, AVL ABNORMAL ECG Electronically Signed On 04-01-2021 6:31:31 CDT by Zackery Caldera D.O.
[2021-04-01 01:27] VITALS: BP 157/64; PULSE 59; RESP 17; O2SAT 99
[2021-04-01] MEDS: SODIUM CHLORIDE 0.9% IV 500 ML 999 ML IV CONT (01:33)
[2021-04-01] MEDS: diazePAM INJ (*CRX) 10 MG/2 ML SYRINGE 2 MG IV PUSH (01:34)
[2021-04-01 03:33] LABS: Add Urine Microscopic? YES; Appearance Urine Clear (Clear); Bilirubin Urine Negative (Negative); Blood Urine Negative (Negative); Color Urine Straw (Yellow); Glucose Urine UA Negative (Negative); Ketones Urine Negative (Negative); Leukocyte Esterase Ur Negative LEU/UL (Negative); Nitrate Urine Negative (Negative); Protein Urine 2+ mg/dL (Negative); RBC Urine 0-2 /hpf (0-2); Specific Grav Ur 1.011 (1.001-1.035); Squamous Epithelial Cell Urine Rare /hpf (Few); Urobilinogen Urine Negative mg/dL (<2.0)
--- NOTE | 2021-04-01 03:48 | ED.GENADULT ---
HPI - General Adult General Chief complaint: Dizziness Stated complaint: slightly dizzy, swelling to bilat legs Time Seen by Provider: 03/31/21 23:38 History of Present Illness HPI narrative: Patient is an 85-year-old female who presents the ER with concerns of for possible bradycardia. She was told by a RELISH MAKER that her heart rate was in the 30s and that she likely had atrial fibrillation. Patient has history of vertigo and has been struggling with that chronically but it was slightly worsened today. Patient is having no nausea or vomiting at this time. She does not feel as if she is missing beats her heart is beating too slow. She does take metoprolol 3 times a day due to her congestive heart failure. No history of arrhythmia. Related Data Home Medications Medication Instructions Recorded Confirmed Januvia 100 mg PO DAILY 07/24/19 03/23/21 ezetimibe 10 mg PO DAILY 07/24/19 03/23/21 fluticasone propionate 1 spray INTRANASAL PRN PRN 07/24/19 03/23/21 furosemide 40 mg PO DAILY 07/24/19 03/23/21 montelukast 10 mg PO HS 07/24/19 03/23/21 omeprazole 20 mg PO DAILY 07/24/19 03/23/21 paroxetine HCl 40 mg PO DAILY 07/24/19 03/23/21 meclizine 12.5 mg PO QID PRN 12/12/20 03/23/21 metoprolol tartrate 25 mg PO BID 12/12/20 03/23/21 ondansetron 4 mg PO TID PRN 12/12/20 03/23/21 simvastatin 40 mg PO DAILY 12/12/20 03/23/21 Allergies Allergy/AdvReac Type Severity Reaction Status Date / Time phenobarbital Allergy Mild Hallucinati Verified 03/23/21 13:08 ng influenza A (H1N1) virus Allergy Unknown Swelling Verified 03/23/21 13:08 vaccine m-jong-split 2008 of Lip/Tongue/Throat Influenza Virus Vaccines Allergy Unknown Swelling Verified 03/23/21 13:08 of Lip/Tongue/Throat Review of Systems Review of Systems: All systems reviewed & are unremarkable except as noted in HPI and below Constitutional: Constitutional: Denies chills, Denies fever(s) and Denies weakness ENT: Reports vertigo, Denies nasal congestion and Denies sore throat Cardiovascular: Cardiovascular: Denies chest pain, Denies rapid heart rate, Denies radiating jaw, neck or arm pain and Reports slow heart rate Respiratory: Respiratory: Denies cough and Denies dyspnea Gastrointestinal: Gastrointestinal: Denies abdominal pain, Denies nausea and Denies vomiting PMFSH Past Medical History Medical History (Updated 04/01/21 @ 03:56 by Vinny Leija MD) Anemia History of blood transfusions. Arthritis Chronic kidney disease, stage 3 Depression Diabetic peripheral neuropathy Diverticulitis Fracture of proximal end of right humerus (07/24/19) Gastroesophageal reflux GI bleed History of rectal polyps Hyperlipidemia Hypertension Sinus problem Type 2 diabetes mellitus Surgical History Surgical History (Updated 12/12/20 @ 18:48 by Evie Riddle PA-C) Fracture of right hip requiring operative repair History of appendectomy History of bilateral cataract extraction History of colon resection History of hysterectomy History of inguinal hernia repair History of rectal polypectomy Family History Family History Sibling Carcinoma of colon Father Black lung disease Heart disease Hypertension Mother Hypertension Other Diabetes mellitus Family history of arthritis Family history of gout Family history of heart disease in male family member before age 55 Family history of kidney disease Social History Social History (Updated 12/12/20 @ 18:49 by Evie Riddle PA-C) Social History: The patient is and lives in her own home in [place]. She has 2 sons and designates her son Ag Marrero as her surrogate decision maker. She wishes to be a full code. 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 Lifelong nonsmoker. No alcohol or illicit substance use. Gender identity (if verbalized by the patient): Female Sexual Orientation (if Verbalized by t
[2021-04-01 04:21] VITALS: BP 157/64; PULSE 61; RESP 18; O2SAT 97
== END 2021-04-01 04:25 ==
PROVIDERS: Emergency Medicine; Emergency Provider Emergency Medicine; PCP Family Medicine
DX: E86.0 Dehydration (principal); R42 Dizziness and giddiness; R00.2 Palpitations; M19.90 Unspecified osteoarthritis, unspecified site; E11.22 Type 2 diabetes mellitus with diabetic chronic kidney disease; I12.9 Hypertensive chronic kidney disease with stage 1 through stage 4 chronic kidney disease, or unspecified chronic kidney disease; N18.30 Chronic kidney disease, stage 3 unspecified; E11.42 Type 2 diabetes mellitus with diabetic polyneuropathy; E78.5 Hyperlipidemia, unspecified; Z86.2 Personal history of diseases of the blood and blood-forming organs and certain disorders involving the immune mechanism; Z87.19 Personal history of other diseases of the digestive system; Z79.899 Other long term (current) drug therapy
CPT/HCPCS: 36415; 71046; 80053; 81001; 85025; 93005; 96361; 96374; 99284; J3360; J7040

== ENCOUNTER 2021-04-05 08:10 | Inpatient (IN) | payer MEDICARE, SELFPAY ==
[2021-04-05] VITALS (15 sets, daily range): BP systolic 147–166; BP diastolic 46–98; PULSE 62–74; RESP 20–22; TEMP 36.2–36.9; O2SAT 95–99; BMI 22.4
--- NOTE | ~2021-04-05 | XR_ITS ---
EXAMINATION: XR chest 2V DATE: 04/05/2021 08:35 INDICATION: Shortness of breath. Productive cough. TECHNIQUE: frontal and lateral views of the chest were obtained. COMPARISON: Chest radiograph dated 03/31/2021 FINDINGS: New bibasilar opacities with blunting at the posterior sulci and costophrenic angles consistent with small bilateral pleural effusions and associated compressive atelectasis. No definitive pneumonia. No pulmonary edema or pneumothorax. Calcified left hilar and mediastinal lymph nodes consistent with ol d granulomatous disease. Heart size is normal. Moderate hiatal hernia. Chronic fracture deformity at the right humeral neck. IMPRESSION: 1. Small bilateral pleural effusions with bibasilar atelectasis. 2. Moderate-sized hiatal hernia. Reviewed, dictated and finalized at location A.
--- NOTE | ~2021-04-05 | MR_ITS ---
EXAMINATION: MR brain/brain stem wo con EXAM DATE: 04/09/2021 12:02 INDICATION: Dizziness. TECHNIQUE: Magnetic resonance imaging (MRI) of the brain/brain stem obtained without contrast. Sagitt al T1, axial diffusion, gradient echo (T2*), T1, T2, FLAIR sequences obtained. There is no prior st udy for comparison. FINDINGS: There are no areas of restricted diffusion to suggest acute infarction. There is no acute hemorrhage seen on the T2*, a hemosiderin sensitive sequence. No intraparenchymal brain mass lesion. There is mild periventricular and subcortical T2/FLAIR signal hyperintensity, nonspecific but pro bably related to small vessel ischemic disease (microangiopathy). There is mild prominence of the s ulci and ventricles related to cerebral atrophy. There are no extra-axial collections. Flow voids are seen in the cerebral arteries on the T2-weighted sequences consistent with their expected patency . Patient has had bilateral ocular lens surgery. Soft tissue is unremarkable. IMPRESSION: 1. No acute intracranial findings. 2. Chronic age related findings. Reviewed, dictated and finalized at location A.
--- NOTE | ~2021-04-05 | CT_ITS ---
EXAMINATION: CTA chest PE protocol DATE: 04/05/2021 11:07 INDICATION: Cough and shortness of breath TECHNIQUE: Computed tomography (CT) pulmonary angiogram of the chest was performed with 100 mL Omnipa que-350 intravenous contrast. Additional 3D reconstructions utilizing coronal maximum intensity proje ction (MIP) were performed. Automated exposure control and iterative reconstruction technique were em ployed. The dose-length product was 426.72 mGy-cm. COMPARISON: None FINDINGS: Excellent contrast opacification of the pulmonary arteries. There is mild streak artifact from dense contrast in the superior vena cava and right atrium. Minimal scattered respiratory motion artifact wh ich does not limit evaluation. No pulmonary embolism. Small left and kpqeu-dx-pnfjbpyu right posterio r layering pleural effusions with dependent compressive atelectasis in the bilateral lower lobes. No pulmonary edema or pneumonia in the aerated portions of the lungs. No pneumothorax. Mild cardiomegaly . Atherosclerotic coronary artery calcific location. No pericardial effusion. Mild enlargement of the central pulmonary arteries consistent with pulmonary arterial hypertension. Thoracic aorta is normal in caliber with no dissection. Moderate-sized sliding-type hiatal hernia. Calcified right hilar lymp h nodes and multiple small calcified splenic nodules consistent with old granulomatous disease. No pa thologically enlarged thoracic lymphadenopathy. Mild S-shaped thoracolumbar curvature with moderate t horacic and severe upper lumbar spondylosis. Chronic mild T12 superior endplate compression fracture. IMPRESSION: 1. No pulmonary embolism. 2. Small left and wokqr-ra-wnbzmckk right pleural effusions with dependent compressive atelectasis in the bilateral lower lobes. 3. Mild cardiomegaly and enlargement of the central pulmonary arteries consistent with pulmonary yasmine rial hypertension. Reviewed, dictated and finalized at location A. IMPRESSION: 1. No pulmonary embolism. 2. Small left and seudv-so-wlbwnsrx right pleural effusions with dependent comp ressive atelectasis in the bilateral lower lobes. 3. Mild cardiomegaly and enlargement of the central pulmonary arteries consiste nt with pulmonary arterial hypertension.
--- NOTE | 2021-04-05 08:16 | ECG_ITS ---
Measurements Intervals [place] Rate: 78 P: 86 [place]: 165 QRS: 97 QRSD: 132 T: 38 QT: 436 QTc: 498 Interpretive Statements SINUS RHYTHM VENTRICULAR BIGEMINY RIGHT BUNDLE BRANCH BLOCK BASELINE ARTIFACT- II, III, AVF, V1, V3-V6 ABNORMAL ECG Electronically Signed On 04-05-2021 20:34:21 CDT by Zackery Caldera D.O.
[2021-04-05 08:54] LABS: Basophils Absolute Auto 0.1 K/mm3 (0.0-0.1); Basophils Percent Auto 0.5 % (0.2-1.2); Eosinophils Absolute Auto 0.1 K/mm3 (0-0.3); Eosinophils Percent Auto 0.9 % (0-4.4); Hematocrit 33.4 % (37.0-47.0); Hemoglobin 10.7 g/dL (12.0-15.0); Immature Granulocyte Absolute 0.04 K/mm3 (0.00-0.031); Immature Granulocyte Percent A 0.4 % (0-0.5); Lymphocytes Absolute Auto 1.31 K/mm3 (0.9-3.2); Lymphocytes Percent Auto 14.3 % (18.3-44.2); Mean Corpuscular Hemoglobin 29.2 pg (26-34); Mean Platelet Volume 9.1 fl (7.4-10.4); Monocytes Absolute Auto 0.6 K/mm3 (0.1-0.6); Monocytes Percent Auto 6.4 % (2.6-8.5); Neutrophils Absolute Auto 7.1 K/mm3 (1.3-6.7); Neutrophils Percent Auto 77.5 % (45.5-73.1); Platelet Count Result 193 k/mm3 (150-375); Red Blood Count 3.67 M/mm3 (4.2-5.4); Red Cell Distribution Width 14.6 % (11.5-14.5); White Blood Count 9.2 K/mm3 (4.5-10.0)
--- NOTE | 2021-04-05 09:00 | PC.NURSE ---
CALLED LAB- NOTIFIED OF ADD ON LABS
[2021-04-05 09:04] LABS: Anion Gap 7 mmol/L (8-16); Blood Urea Nitrogen 43 mg/dL (7-17); Calcium 8.9 mg/dL (8.4-10.2); Carbon Dioxide 29 mmol/L (22-30); Chloride 99 mmol/L (98-107); Estimated Glomerular Filt Rate 43; Glucose 234 mg/dL (65-110); Potassium 4.6 mmol/L (3.4-5.0); Sodium 135 mmol/L (137-145)
--- NOTE | 2021-04-05 09:11 | ED.GENADULT ---
HPI - General Adult General Chief complaint: Shortness of Breath/Dyspnea Stated complaint: sob/bradycardia Time Seen by Provider: 04/05/21 08:25 Source: patient History of Present Illness HPI narrative: Patient is a 85 y/o female complaining of mild SOB since yesterday. She states that activity worsens her SOB. She has a cough. She denies any fever or chest pain. She has some leg swelling. Related Data Home Medications Medication Instructions Recorded Confirmed Januvia 100 mg PO DAILY 07/24/19 04/05/21 ezetimibe 10 mg PO DAILY 07/24/19 04/05/21 fluticasone propionate 1 spray INTRANASAL PRN PRN 07/24/19 04/05/21 furosemide 40 mg PO DAILY 07/24/19 04/05/21 montelukast 10 mg PO HS 07/24/19 04/05/21 omeprazole 20 mg PO DAILY 07/24/19 04/05/21 paroxetine HCl 40 mg PO DAILY 07/24/19 04/05/21 meclizine 12.5 mg PO QID PRN 12/12/20 04/05/21 metoprolol tartrate 25 mg PO BID 12/12/20 04/05/21 ondansetron 4 mg PO TID PRN 12/12/20 04/05/21 simvastatin 40 mg PO DAILY 12/12/20 04/05/21 amlodipine 5 mg PO HS 04/05/21 04/05/21 ferrous sulfate 325 mg PO BID 04/05/21 04/05/21 Allergies Allergy/AdvReac Type Severity Reaction Status Date / Time phenobarbital Allergy Mild Hallucinati Verified 04/05/21 16:04 ng influenza A (H1N1) virus Allergy Unknown Swelling Verified 04/05/21 16:04 vaccine [id number] 2008 of Lip/Tongue/Throat Influenza Virus Vaccines Allergy Unknown Swelling Verified 04/05/21 16:04 of Lip/Tongue/Throat Review of Systems Constitutional: Constitutional: Denies chills, Denies fever(s), Denies headache(s) and Denies weakness Eyes: Eyes: Denies blurry vision ENT: Denies headache(s) and Denies neck pain Cardiovascular: Cardiovascular: Denies chest pain and Reports dyspnea Respiratory: Respiratory: Reports cough and Reports dyspnea Gastrointestinal: Gastrointestinal: Denies abdominal pain, Denies diarrhea, Denies nausea and Denies vomiting Genitourinary: Genitourinary: Denies hematuria and Denies dysuria Musculoskeletal: Musculoskeletal: Denies back pain and Denies neck pain Neurologic: Denies headache(s) and Denies weakness [facility] Past Medical History Medical History (Updated 04/05/21 @ 18:12 by Jackie Cavanaugh MD) Anemia History of blood transfusions. Arthritis Chronic kidney disease, stage 3 Creatinine seems to range between 0.7 and 1.30. Depression Diabetic peripheral neuropathy Diastolic congestive heart failure Echocardiogram on 12/13/2020 showed normal left ventricular size with moderate consent of left ventricular hypertrophy with overall good left ventricular systolic function with an EF measuring 62%. There was hypokinesis of the basal inferoseptal segment as well as grade 1 diastolic dysfunction with moderately enlarged left atrial chamber and atrial septal aneurysm. Diverticulitis Fracture of proximal end of right humerus (07/24/19) Gastroesophageal reflux GI bleed History of rectal polyps Hyperlipidemia Hypertension Type 2 diabetes mellitus Hemoglobin A1c was 6.8% on 12/12/2020. Surgical History Surgical History Fracture of right hip requiring operative repair History of appendectomy History of bilateral cataract extraction History of colon resection History of hysterectomy History of inguinal hernia repair History of rectal polypectomy Family History Family History Sibling Carcinoma of colon Father Black lung disease Heart disease Hypertension Mother Hypertension Other Diabetes mellitus Family history of arthritis Family history of gout Family history of heart disease in male family member before age 55 Family history of kidney disease Social History Social History (Updated 04/05/21 @ 14:14 by Evie Riddle PA-C) Social History: The patient is and she is currently a resident at [facility]. Retired from [employer]
--- NOTE | 2021-04-05 09:51 | PC.NURSE ---
CALLED LAB AGAIN FOR ADD ON BNP AND BASELINE TROP
[2021-04-05 09:59] LABS: D Dimer 2.65 ug/mL (<0.48)
[2021-04-05 10:26] LABS: NT Pro B Type Natriuretic Pept 26100 pg/mL (5-100); Troponin I 0.017 ng/mL (0.000-0.034)
[2021-04-05 10:44] LABS: EDCOVIDSCREEN Negative (Negative)
[2021-04-05] MEDS: FUROSEMIDE INJ 40 MG/4 ML VIAL IV PUSH (11:06)
[2021-04-05 12:28] LABS: Troponin I 0.019 ng/mL (0.000-0.034)
--- NOTE | 2021-04-05 14:00 | PM.IMHP ---
H&P: HPI History of Present Illness Date/Time: 04/05/21 14:00 Chief Complaint: Shortness of breath and low heart rate. Narrative: This is an 85-year-old female with hypertension, dyslipidemia, type 2 diabetes mellitus, and diastolic congestive heart failure who presented to the emergency department earlier today via EMS from [facility] for evaluation of shortness of breath and low heart rate. She was seen in the emergency department 5 days ago on 03/31/2021 after she was reportedly bradycardic on routine vital sign check with a heart rate in the 30s. She did not have any specific complaints aside from mild dizziness which has been an intermittent but ongoing problems for her over the years. She was not found to have a heart rate below 60 while in the ER and she was discharged feeling in her usual state of health. Over the past 2 to 3 days she has developed a mild, nonproductive cough with dyspnea as well as increasing lower extremity edema. Today she was once again told that her heart rate was low and she was directed to the emergency department. She has frequent PVCs and will occasionally go into ventricular bigeminy with non perfusing beats. Very rarely will she be aware of the PVCs. She enjoys drinking Dr. Pepper but has cut back on not quite heavily, drinking may be 7 oz a day. No alcohol use. No history of or concerns for sleep apnea. At the time my evaluation she has no complaints and she denies feeling lightheaded and dizzy. She denies fever, chills, and sweats. No recent cold or flu symptoms. She denies chest discomfort, pleuritic pain, or palpitations. No significant orthopnea. No nausea or vomiting. Review of Systems Review of Systems: Twelve systems were reviewed with pertinent positives and negatives as per HPI. Over the years she has had intermittent issues with what she calls vertigo however she describes intermittent feelings of lightheadedness and dizziness, as though she might pass out. No syncopal episodes. Except as documented, all other systems were reviewed and are negative. [facility] Past Medical History Medical History Anemia History of blood transfusions. Arthritis Chronic kidney disease, stage 3 Creatinine seems to range between 0.7 and 1.30. Depression Diabetic peripheral neuropathy Diastolic congestive heart failure Echocardiogram on 12/13/2020 showed normal left ventricular size with moderate consent of left ventricular hypertrophy with overall good left ventricular systolic function with an EF measuring 62%. There was hypokinesis of the basal inferoseptal segment as well as grade 1 diastolic dysfunction with moderately enlarged left atrial chamber and atrial septal aneurysm. Diverticulitis Fracture of proximal end of right humerus (07/24/19) Gastroesophageal reflux GI bleed History of rectal polyps Hyperlipidemia Hypertension Type 2 diabetes mellitus Hemoglobin A1c was 6.8% on 12/12/2020. Surgical History Surgical History Fracture of right hip requiring operative repair History of appendectomy History of bilateral cataract extraction History of colon resection History of hysterectomy History of inguinal hernia repair History of rectal polypectomy Family History Family History Sibling Carcinoma of colon Father Black lung disease Heart disease Hypertension Mother Hypertension Other Diabetes mellitus Family history of arthritis Family history of gout Family history of heart disease in male family member before age 55 Family history of kidney disease Social History Social History (Updated 04/05/21 @ 20:58 by Evie Riddle PA-C) Social History: The patient is and she is currently a resident at [facility]. 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 Lifelong nonsmoker. No alcohol or illicit substance us
[2021-04-05 15:05] LABS: Troponin I 0.018 ng/mL (0.000-0.034)
--- NOTE | 2021-04-05 15:12 | PC.NURSE ---
CALLED FLOOR. RN UNAVAILABLE TO TAKE REPORT AT THIS TIME AND WILL CALL BACK
--- NOTE | 2021-04-05 15:37 | PC.NURSE ---
CALLED FLOOR TO GIVE REPORT. STATES RN IS STILL UNAVAILABLE AT THIS TIME. STATES WILL CALL BACK.
--- NOTE | 2021-04-05 16:00 | ADMGEN ---
This patient, Elizabeth Negron, was admitted to Medical Room 258-01. Patient/family oriented to hospital policies and general routines including ID bracelet, bed and alarms, visiting hours, pain management, procedures, bathroom and other care routines, personal items, smoking policy, room service/diet, and visiting hours. Information on how to activate the Rapid Response Team has been discussed. Patient/Family are encouraged to report perceived risks to care and to ask questions if they do not understand what they are told or what they should do.
[2021-04-05 17:24] LABS: Glucose Point of Care 273 mg/dl (65-105)
[2021-04-05] MEDS: INSULIN ASPART (*BKC) 100 UNITS/ML SUB-Q (17:29)
[2021-04-05 20:38] LABS: Glucose Point of Care 133 mg/dl (65-105)
[2021-04-05] MEDS: amLODIPine BESYLATE 5 MG TABLET PO (21:45)
[2021-04-05] MEDS: MONTELUKAST SODIUM 10 MG TABLET PO (21:45)
[2021-04-05] MEDS: traZODone HCL 50 MG TABLET PO (21:46)
[2021-04-05] MEDS: MECLIZINE HCL 12.5 MG TABLET PO (21:46)
[2021-04-05] MEDS: METOPROLOL TARTRATE 25 MG TABLET PO (21:46)
[2021-04-06] VITALS (14 sets, daily range): BP systolic 142–154; BP diastolic 50–74; PULSE 65–85; RESP 16–26; TEMP 35.7–36.8; O2SAT 92–98
[2021-04-06 06:47] LABS: Alanine Aminotransferase 21 U/L (4-35); Albumin Level 3.4 g/dL (3.5-5.1); Alkaline Phosphatase 77 U/L (38-126); Anion Gap 5 mmol/L (8-16); Aspartate Amino Transferase 30 U/L (14-36); Bilirubin,Total 0.6 mg/dL (0.2-1.3); Blood Urea Nitrogen 39 mg/dL (7-17); Calcium 8.7 mg/dL (8.4-10.2); Carbon Dioxide 30 mmol/L (22-30); Chloride 100 mmol/L (98-107); Estimated CRCL calculation 33 ml/min; Estimated Glomerular Filt Rate 47; Glucose 183 mg/dL (65-110); Magnesium 1.5 mg/dL (1.6-2.3); Potassium 3.9 mmol/L (3.4-5.0); Sodium 135 mmol/L (137-145)
[2021-04-06] MEDS: MAGNESIUM OXIDE 400 MG TABLET PO (08:30)
[2021-04-06] MEDS: FERROUS SULFATE 324 MG TABLET PO ×2 (08:30→17:33)
[2021-04-06] MEDS: EZETIMIBE 10 MG TABLET PO (08:31)
[2021-04-06] MEDS: SIMVASTATIN 20 MG TABLET 40 MG PO (08:31)
[2021-04-06] MEDS: ENOXAPARIN 40 MG/0.4 ML SYRINGE SUB-Q (08:31)
[2021-04-06] MEDS: PARoxetine 20 MG TABLET 40 MG PO (08:31)
[2021-04-06] MEDS: METOPROLOL TARTRATE 25 MG TABLET PO ×2 (08:32→21:17)
[2021-04-06] MEDS: FUROSEMIDE INJ 40 MG/4 ML VIAL IV PUSH (08:33)
[2021-04-06] MEDS: MAGNESIUM SULFATE 3GM/D5W100ML 3 GM/100 ML BAG IVPB (08:35)
[2021-04-06] MEDS: INSULIN ASPART (*BKC) 100 UNITS/ML SUB-Q (08:37)
[2021-04-06 08:40] LABS: Glucose Point of Care 206 mg/dl (65-105)
[2021-04-06] MEDS: PANTOPRAZOLE 40 MG TABLET PO (09:20)
[2021-04-06 13:23] LABS: Glucose Point of Care 195 mg/dl (65-105)
--- NOTE | 2021-04-06 13:37 | PM.CNCAR ---
Assessment and Plan Assessment and plan (1) Acute diastolic CHF (congestive heart failure): Code(s): I50.31 - Acute diastolic (congestive) heart failure Status: Acute Assessment and Plan: Patient, who has a history of LVH and diastolic dysfunction, presents with new onset of acute diastolic heart failure. No obvious ischemic etiology although she did have a focal wall motion abnormality inferiorly noted by echo in November. No IMI on EKG. Agree with IV diuretics. Work on better blood pressure control, perhaps by increasing the metoprolol to 37.5 mg BID which may help with her PVCs as well. Daily BMP while on IV diuretics Consider an OPT ischemia evaluation. (2) Premature ventricular contractions: Code(s): I49.3 - Ventricular premature depolarization Status: Acute Assessment and Plan: Frequent PVCs, which can interfere with normal left ventricular function if in the range of a 10-20% PVC burden. Increase metoprolol. Follow-up electrolytes Patient may need an outpatient Holter monitor to quantitate PVCs if frequent PVCs persist. (3) Hypertension: Code(s): I10 - Essential (primary) hypertension Status: Acute Assessment and Plan: Not at goal. (4) Chronic kidney disease, stage 3: Code(s): N18.30 - Chronic kidney disease, stage 3 unspecified Status: Acute Assessment and Plan: Acute on chronic kidney disease. History of Present Illness History of Present Illness Consult date/time: 04/06/21 13:37 Consult reason: congestive heart failure Reason For Visit: chf Narrative: Date of service 04/06/2021 Ms. Elizabeth Negron is an 85-year-old white female whom we were asked to see at the request of VINCENZO Riddle for advice and opinion regarding her CHF in consultation. Ms. Negron, who resides at [facility], came to the emergency room on April 01 with dizziness, shortness of breath and possible bradycardia. She was found have APCs and PVCs, and vertigo, and discharged. She continued to have RODRIGUEZ walking down the javier as well as some PND and lower extremity swelling , as well as more vertigo. She returned to the emergency room and was found to be in congestive heart failure with new small pleural effusions and elevated proBNP. She was admitted and started on IV furosemide 40 mg IV push daily. She has a history of hypertension, diabetes, hyperlipidemia, and PVCs. Denies any history of heart disease but did see Dr. Sheikh for a heart checkup a couple years ago. No anginal symptoms. Says her blood pressure has been fairly well controlled. She takes furosemide 40 mg daily chronically at home. Stays on low-salt diet. Echocardiogram on 12/13/2020 moderate consent of LVH with EF 62%. There was hypokinesis of the basal inferoseptal segment as well as grade 1 diastolic dysfunction. Review of Systems Constitutional: Constitutional: Reports fatigue Eyes: Eyes: Reports no additional eye complaints ENT: Denies epistaxis Cardiovascular: Cardiovascular: Denies chest pain, Reports pedal edema, Reports leg edema, Reports lightheadedness and Denies palpitations Respiratory: Respiratory: Denies cough, Reports dyspnea and Reports dyspnea on exertion Gastrointestinal: Gastrointestinal: Denies hematochezia and Reports diarrhea (chronic intermittent) Genitourinary: Genitourinary: Denies hematuria Musculoskeletal: Musculoskeletal: Denies neck pain Integumentary/Breasts: Skin/Breast: Reports wounds Comments: has small toe ulcers, seeing a mat inspector Neurologic: Denies Abnormal speech present and Denies confusion Psychiatric: Psychiatric: Reports no additional psychiatric complaints PMFSH Past Medical History Medical History (Reviewed
--- NOTE | 2021-04-06 13:58 | ECHO_ITS ---
Patient Info Name: Elizabeth Negron Age: 85 years : 1935 Gender: Female Ht: 67 in Wt: 165 lbs BSA: 1.89 m2 HR: 76 bpm BP: 152 / 68 mmHg Heart Rhythm: Sinus Rhythm Exam Date: 04/06/2021 1:46 PM Exam Location: [facility] Patient Status: Inpatient Admit Date: 04/05/2021 Staff Ordering Physician: Evie Riddle PA-C Liquor Establishment Manager: Nemesio Gonzalez RDCS, RT Attending Provider: Holli Anguiano PA-C Referring Physician: Venkatesh DUNBAR; Exam Type: CA echo doppler color flow Study Info Indications R06.00 - Dyspnea, unspecified Complete two-dimensional, color flow and Doppler transthoracic echocardiogram is performed. Summary 1. Complete two-dimensional, color flow and Doppler transthoracic echocardiogram is performed. 2. Normal left ventricular size with mild concentric hypertrophy. Good overall systolic function of the left ventricle with an estimated ejection fraction of 60-65%. Hypokinesis of the basal inferior septal segment. Grade 2 diastolic dysfunction is present. 3. Right ventricular chamber dimension is mildly enlarged, with normal contractility.. 4. Right atrial chamber dimension is normal. 5. Left atrial chamber dimension is moderately enlarged. 6. There is mild to moderate aortic valve stenosis with a peak velocity of 241 cm/s, mean gradient of 11mmHg, and aortic valve area of 1.1 -1.5 cm2. 7. There is mild to moderate mitral valve regurgitation. 8. There is mild to moderate tricuspid valve regurgitation. 9. Severe pulmonary hypertension, estimated pulmonary arterial systolic pressure is 65 mmHg. 10. Dilated inferior vena cava with >50% collapse upon inspiration consistent with elevated right atrial pressure, 15 mmHg. 11. Normal sinus rhythm. Left Ventricle Left ventricular chamber dimension is normal. Left ventricular systolic function is normal, estimated at 60-65%. There is mildly increased left ventricular wall thickness. Left ventricular septal wall motion is normal. The left ventricular diastolic function is grade II diastolic dysfunction. Right Ventricle Right ventricular chamber dimension is mildly enlarged, with normal contractility.. Right ventricular systolic function is normal. Left Atria Left atrial chamber dimension is moderately enlarged. Right Atria Right atrial chamber dimension is normal. Aortic Valve The aortic valve is trileaflet. There is no aortic valve sclerosis. There is mild to moderate aortic valve stenosis with a peak velocity of 241 cm/s, mean gradient of 11mmHg, and aortic valve area of 1.1 -1.5 cm2. There is no aortic valve regurgitation. There is mild aortic valve calcification. Pulmonic Valve The pulmonic valve is normal. There is no pulmonic valve stenosis. There is no pulmonic regurgitation. Mitral Valve The mitral valve has thickened leaflets. There is no mitral valve stenosis. There is mild to moderate mitral valve regurgitation. Tricuspid Valve The tricuspid valve leaflets are normal. There is no significant tricuspid valve stenosis. There is mild to moderate tricuspid valve regurgitation. Severe pulmonary hypertension, estimated pulmonary arterial systolic pressure is 65 mmHg. Pericardium/Pleural The pericardium appears normal. There is no pericardial effusion. Inferior Vena Cava Dilated inferior vena cava with >50% collapse upon inspiration consistent with elevated right atrial pressure, 15 mmHg. Aorta The aortic root size at the sinus of Valsalva is normal. The
[2021-04-06] MEDS: MECLIZINE HCL 12.5 MG TABLET PO (15:03)
--- NOTE | 2021-04-06 16:28 | PM.IMPN ---
Progress Note: A&P Assessment and Plan (1) Premature ventricular contractions: Code(s): I49.3 - Ventricular premature depolarization Status: Acute Assessment and Plan: She was sent in due to bradycardia however her heart rate has been in the 70s on the monitor with frequent, poorly perfusing or non perfusing PVCs. These seem to be more frequent recently, the etiology of which is not entirely clear at this time. Chest CTA shows findings consistent with pulmonary arterial hypertension which were not mentioned on imaging in November 2020 thus I think it would be prudent to repeat echocardiogram. Previous echocardiogram showed hypokinesis of the basal inferoseptal segment though she has no known history of IA. Magnesium was low at 1.5 and she was given IV magnesium this morning. Will recheck in the morning. She has had longstanding hypertension that does not appear to be ideally controlled. No significant caffeine or alcohol use. Apnea link shows HIGH likelihood of VIVIENNE. TSH normal. Cardiology was consulted and their input is greatly appreciated. Continue monitoring. (2) Congestive heart failure: Code(s): I50.9 - Heart failure, unspecified Status: Acute Assessment and Plan: Acute on chronic Diastolic CHF. Previous echocardiogram showed grade 1 diastolic dysfunction. She is getting IV Lasix therapy with good urine output and improvement of her shortness of breath and leg swelling. Continue strict intake and output Weights daily She is on Lasix 40 mg at home but continued to gain weight on this, will possibly need adjustments upon discharge and close follow-up with BMP Continue monitoring. (3) Acute respiratory failure with hypoxia: Code(s): J96.01 - Acute respiratory failure with hypoxia Status: Acute Assessment and Plan: Due to acute CHF exacerbation she was requiring 2 L of oxygen via nasal cannula. At this time with diuresis she is resting comfortably on room air at 94% saturation. Patient does not have any shortness of breath or cough at this time. Will continue monitoring her respiratory status and make adjustments if needed. (4) Chronic kidney disease, stage 3: Code(s): N18.30 - Chronic kidney disease, stage 3 unspecified Status: Acute Assessment and Plan: Creatinine higher most likely due to fluid overload status. Creatinine improving with IV diuresis. Recheck BMP tomorrow. Monitor while diuresing. (5) Anemia: Code(s): D64.9 - Anemia, unspecified Status: Chronic Assessment and Plan: Patient has chronic anemia with a stable hemoglobin hematocrit. (6) Hypertension: Code(s): I10 - Essential (primary) hypertension Status: Acute Assessment and Plan: Blood pressures were reviewed and they do not appear to be adequately controlled when reviewing records over the last several years. Her systolic blood pressures are frequently in the 150s to 170s if not a bit higher. She certainly has room for medication adjustments but at this time I will see how she does with diuresis and trend blood pressures overnight. (7) Type 2 diabetes mellitus: Code(s): E11.9 - Type 2 diabetes mellitus without complications Status: Acute Assessment and Plan: Hemoglobin A1c stable at 7.0%. Continue Januvia. Initiate sliding scale insulin, Accu-Cheks, and hypoglycemic protocol. Time Spent With Patient Time with patient: 25 - 35 minutes Subjective Date/time seen: 04/06/21 16:28 Interval history: Date of service 04/06/2021: Patient reports feeling better today. She has not had any more shortness of breath and improvement of her leg swelling. She does not feel any palpitations but s
[2021-04-06 17:58] LABS: Glucose Point of Care 190 mg/dl (65-105)
[2021-04-06] MEDS: METOPROLOL TARTRATE 12.5 MG TABLET PO (21:15)
[2021-04-06] MEDS: amLODIPine BESYLATE 5 MG TABLET PO (21:17)
[2021-04-06] MEDS: traZODone HCL 50 MG TABLET PO (21:17)
[2021-04-06] MEDS: MONTELUKAST SODIUM 10 MG TABLET PO (21:17)
[2021-04-06 21:45] LABS: Glucose Point of Care 173 mg/dl (65-105)
[2021-04-07] VITALS (15 sets, daily range): BP systolic 119–158; BP diastolic 47–59; PULSE 62–93; RESP 16–20; TEMP 36.1–37; O2SAT 90–100
[2021-04-07 06:15] LABS: Hematocrit 33.3 % (37.0-47.0); Hemoglobin 10.8 g/dL (12.0-15.0); Mean Corpuscular HGB Conc 32.4 g/dl (32-36); Mean Corpuscular Hemoglobin 29.3 pg (26-34); Mean Corpuscular Volume 90.5 fl (80-100); Mean Platelet Volume 9.4 fl (7.4-10.4); Platelet Count Result 211 k/mm3 (150-375); Red Blood Count 3.68 M/mm3 (4.2-5.4); Red Cell Distribution Width 14.2 % (11.5-14.5); White Blood Count 7.5 K/mm3 (4.5-10.0)
[2021-04-07 06:36] LABS: Anion Gap 6 mmol/L (8-16); Blood Urea Nitrogen 45 mg/dL (7-17); Calcium 8.6 mg/dL (8.4-10.2); Carbon Dioxide 28 mmol/L (22-30); Chloride 100 mmol/L (98-107); Estimated CRCL calculation 26 ml/min; Estimated Glomerular Filt Rate 36; Glucose 195 mg/dL (65-110); Magnesium 2.3 mg/dL (1.6-2.3); Potassium 4.4 mmol/L (3.4-5.0); Sodium 134 mmol/L (137-145)
[2021-04-07 08:13] LABS: Glucose Point of Care 175 mg/dl (65-105)
[2021-04-07] MEDS: ENOXAPARIN 40 MG/0.4 ML SYRINGE SUB-Q (08:52)
[2021-04-07] MEDS: FERROUS SULFATE 324 MG TABLET PO ×2 (08:52→16:53)
[2021-04-07] MEDS: MAGNESIUM OXIDE 400 MG TABLET PO (08:53)
[2021-04-07] MEDS: FUROSEMIDE INJ 40 MG/4 ML VIAL IV PUSH (08:53)
[2021-04-07] MEDS: PARoxetine 20 MG TABLET 40 MG PO (08:54)
[2021-04-07] MEDS: METOPROLOL TARTRATE 12.5 MG TABLET PO ×2 (08:54→21:00)
[2021-04-07] MEDS: SIMVASTATIN 20 MG TABLET 40 MG PO (08:54)
[2021-04-07] MEDS: PANTOPRAZOLE 40 MG TABLET PO (08:54)
[2021-04-07] MEDS: METOPROLOL TARTRATE 25 MG TABLET PO ×2 (08:54→20:59)
[2021-04-07] MEDS: MECLIZINE HCL 12.5 MG TABLET PO ×2 (08:55→16:54)
[2021-04-07] MEDS: EZETIMIBE 10 MG TABLET PO (09:50)
[2021-04-07] MEDS: ACETAMINOPHEN 325 MG TABLET 650 MG PO ×2 (09:52→19:25)
[2021-04-07 12:26] LABS: Glucose Point of Care 196 mg/dl (65-105)
--- NOTE | 2021-04-07 12:55 | PM.PNCARD ---
Progress Note: A&P Assessment and Plan (1) Acute diastolic CHF (congestive heart failure): Code(s): I50.31 - Acute diastolic (congestive) heart failure Status: Acute Assessment and Plan: Patient, who has a history of LVH and diastolic dysfunction, presents with new onset of acute diastolic heart failure. Agree with IV diuretics - anticipate shifting to p.o. tomorrow BP better but still above goal. Consider increasing amlodipine to 10mg Daily BMP while on IV diuretics Consider an OPT ischemia evaluation. (2) Premature ventricular contractions: Code(s): I49.3 - Ventricular premature depolarization Status: Acute Assessment and Plan: Frequent PVCs, which can interfere with normal left ventricular function if in the range of a 10-20% PVC burden. Continue metoprolol Electrolytes within normal limits today Patient may need an outpatient Holter monitor to quantitate PVCs if frequent PVCs persist. (3) Hypertension: Code(s): I10 - Essential (primary) hypertension Status: Acute Assessment and Plan: Not at goal. (4) Chronic kidney disease, stage 3: Code(s): N18.30 - Chronic kidney disease, stage 3 unspecified Status: Acute Assessment and Plan: Acute on chronic kidney disease. Subjective Date/time seen: 04/07/21 12:55 Cardiology follow up for CHF Date of service 04/07/2021: She is feeling better today. She says that her legs feel less tight and her breathing has improved. She says that she has been up out of bed to go to the bathroom several times today and experienced dyspnea with activity no shortness of breath at rest. Denies chest pain. Does say that she feels irregular heartbeats. Review of Systems Constitutional: Constitutional: Reports fatigue Eyes: Eyes: Reports no additional eye complaints ENT: Denies epistaxis and Denies neck pain Cardiovascular: Cardiovascular: Denies chest pain, Reports pedal edema, Reports leg edema, Reports lightheadedness, Denies palpitations, Reports dyspnea and Reports dyspnea on exertion Respiratory: Respiratory: Denies cough, Reports dyspnea and Reports dyspnea on exertion Gastrointestinal: Gastrointestinal: Denies hematochezia and Reports diarrhea (chronic intermittent) Genitourinary: Genitourinary: Denies hematuria Musculoskeletal: Musculoskeletal: Denies neck pain Integumentary/Breasts: Skin/Breast: Reports wounds Neurologic: Denies Abnormal speech present and Denies confusion Psychiatric: Psychiatric: Reports no additional psychiatric complaints and Denies confusion Endocrine: Endocrine: Reports fatigue and Denies palpitations Exam Narrative: Pleasant older female lying in bed eating lunch. Alert and oriented. Const: General: comfortable and no acute distress; No confusion Orientation/consciousness: No confusion HENMT: Head: normal to inspection General nose exam: no epistaxis Mouth: Yes moist mucous membranes Eyes: EOM: EOMs intact bilaterally Neck: Neck: supple and no JVD Resp: Auscultation: crackles diffuse and diminished lung sounds Other: few scattered rales and diminished breath sounds in the bases Cardio: Rate: regular rate Rhythm: regular rhythm and other ( Frequent ectopy) Heart sounds: Murmur heart sound present (2/6 [place] RUSB, LUSB) GI: Inspection: non-distended Auscultation: normal bowel sounds Skin: General skin exam: normal color and no rashes or lesions noted Neuro: General: No confusion Cognition (Neuro): normal cognition Speech: normal speech Motor exam (neuro): Normal motor muscle tone present throughout Extrem: General: edema ( trace) and pedal edema Psych: Mental Status: mental status grossly normal Affect: normal affect Objective Data Vital Signs Vital Signs: Vital Signs - 24 hr 04/06/21 13:15 04/06/21 16:00 04/06/21
--- NOTE | 2021-04-07 15:48 | PM.IMPN ---
Progress Note: A&P Assessment and Plan (1) Premature ventricular contractions: Code(s): I49.3 - Ventricular premature depolarization Status: Acute Assessment and Plan: She was sent in due to bradycardia however her heart rate has been in the 70s on the monitor with frequent, poorly perfusing or non perfusing PVCs. These seem to be more frequent recently, the etiology of which is not entirely clear at this time. Chest CTA shows findings consistent with pulmonary arterial hypertension which were not mentioned on imaging in November 2020 thus I think it would be prudent to repeat echocardiogram. Previous echocardiogram showed hypokinesis of the basal inferoseptal segment though she has no known history of [place]. Repeat echo with 60-65% ejection fraction hypokinesis of basal inferior septal segment. Grade 2 diastolic dysfunction, nitx-ul-[id number] aortic valve stenosis cpya-nn-quyshtar MR [id number] TR severe pulmonary hypertension estimated at 65 mm Hg done on Magnesium was low at 1.5 and she was given IV magnesium. Repeat this a.m. is normal She has had longstanding hypertension that does not appear to be ideally controlled. No significant caffeine or alcohol use. Apnea link shows HIGH likelihood of VIVIENNE. TSH normal. Cardiology was consulted and their input is greatly appreciated. Continue monitoring. (2) Congestive heart failure: Code(s): I50.9 - Heart failure, unspecified Status: Acute Assessment and Plan: Acute on chronic Diastolic CHF. Previous echocardiogram showed grade 1 diastolic dysfunction. She is getting IV Lasix therapy with good urine output and improvement of her shortness of breath and leg swelling. Continue strict intake and output Weights daily She is on Lasix 40 mg at home but continued to gain weight on this, will possibly need adjustments upon discharge and close follow-up with [facility] Cardiology following. Appreciate their recommendations Continue monitoring. (3) Acute respiratory failure with hypoxia: Code(s): J96.01 - Acute respiratory failure with hypoxia Status: Acute Assessment and Plan: Due to acute CHF exacerbation she was requiring 2 L of oxygen via nasal cannula. At this time with diuresis she is resting comfortably on room air at 94% saturation. Patient does not have any shortness of breath or cough at this time. Will continue monitoring her respiratory status and make adjustments if needed. (4) Chronic kidney disease, stage 3: Code(s): N18.30 - Chronic kidney disease, stage 3 unspecified Status: Acute Assessment and Plan: Creatinine higher most likely due to fluid overload status. Creatinine improving with IV diuresis. Recheck And monitor BMP while diurese. Creatinine slightly up today (5) Anemia: Code(s): D64.9 - Anemia, unspecified Status: Chronic Assessment and Plan: Patient has chronic anemia with a stable hemoglobin hematocrit. (6) Hypertension: Code(s): I10 - Essential (primary) hypertension Status: Acute Assessment and Plan: Blood pressures were reviewed and they do not appear to be adequately controlled when reviewing records over the last several years. Her systolic blood pressures are frequently in the 150s to 170s if not a bit higher. She certainly has room for medication adjustments but at this time I will see how she does with diuresis and trend blood pressures overnight. (7) Type 2 diabetes mellitus: Code(s): E11.9 - Type 2 diabetes mellitus without complications Status: Acute Assessment and Plan: Hemoglobin A1c stable at 7.0%. Continue Januvia. Initiate sliding scale insulin, Accu-Cheks, and hypoglycemic protocol.
[2021-04-07 17:11] LABS: Glucose Point of Care 150 mg/dl (65-105)
[2021-04-07] MEDS: MONTELUKAST SODIUM 10 MG TABLET PO (20:59)
[2021-04-07] MEDS: traZODone HCL 50 MG TABLET PO (20:59)
[2021-04-07] MEDS: amLODIPine BESYLATE 5 MG TABLET PO (20:59)
[2021-04-07 22:21] LABS: Glucose Point of Care 175 mg/dl (65-105)
[2021-04-08] VITALS (17 sets, daily range): BP systolic 115–155; BP diastolic 46–70; PULSE 58–102; RESP 16–20; TEMP 36.4–36.9; O2SAT 96–98
[2021-04-08 05:58] LABS: Basophils Percent Auto 0.8 % (0.2-1.2); Eosinophils Absolute Auto 0.2 K/mm3 (0-0.3); Eosinophils Percent Auto 3.8 % (0-4.4); Hematocrit 31.8 % (37.0-47.0); Hemoglobin 10.2 g/dL (12.0-15.0); Immature Granulocyte Absolute 0.02 K/mm3 (0.00-0.031); Immature Granulocyte Percent A 0.4 % (0-0.5); Lymphocytes Absolute Auto 0.94 K/mm3 (0.9-3.2); Lymphocytes Percent Auto 17.9 % (18.3-44.2); Mean Corpuscular HGB Conc 32.1 g/dl (32-36); Mean Corpuscular Hemoglobin 29.5 pg (26-34); Mean Corpuscular Volume 91.9 fl (80-100); Mean Platelet Volume 9.3 fl (7.4-10.4); Monocytes Absolute Auto 0.3 K/mm3 (0.1-0.6); Monocytes Percent Auto 6.5 % (2.6-8.5); Neutrophils Absolute Auto 3.7 K/mm3 (1.3-6.7); Neutrophils Percent Auto 70.6 % (45.5-73.1); Platelet Count Result 194 k/mm3 (150-375); Red Blood Count 3.46 M/mm3 (4.2-5.4); Red Cell Distribution Width 13.9 % (11.5-14.5); White Blood Count 5.3 K/mm3 (4.5-10.0)
[2021-04-08 06:01] LABS: Anion Gap 7 mmol/L (8-16); Blood Urea Nitrogen 42 mg/dL (7-17); Calcium 8.3 mg/dL (8.4-10.2); Carbon Dioxide 27 mmol/L (22-30); Chloride 101 mmol/L (98-107); Estimated CRCL calculation 26 ml/min; Estimated Glomerular Filt Rate 36; Glucose 178 mg/dL (65-110); Magnesium 1.8 mg/dL (1.6-2.3); Potassium 4.3 mmol/L (3.4-5.0); Sodium 135 mmol/L (137-145)
[2021-04-08 06:52] LABS: Glucose Point of Care 160 mg/dl (65-105)
[2021-04-08] MEDS: FERROUS SULFATE 324 MG TABLET PO ×2 (07:52→16:52)
[2021-04-08 08:20] LABS: Glucose Point of Care 178 mg/dl (65-105)
[2021-04-08] MEDS: FUROSEMIDE INJ 40 MG/4 ML VIAL IV PUSH (08:34)
[2021-04-08] MEDS: ENOXAPARIN 40 MG/0.4 ML SYRINGE SUB-Q (08:34)
[2021-04-08] MEDS: EZETIMIBE 10 MG TABLET PO (08:34)
[2021-04-08] MEDS: MAGNESIUM OXIDE 400 MG TABLET PO (08:35)
[2021-04-08] MEDS: MECLIZINE HCL 12.5 MG TABLET PO ×2 (08:35→16:52)
[2021-04-08] MEDS: PANTOPRAZOLE 40 MG TABLET PO (08:36)
[2021-04-08] MEDS: METOPROLOL TARTRATE 25 MG TABLET PO ×2 (08:36→21:50)
[2021-04-08] MEDS: PARoxetine 20 MG TABLET 40 MG PO (08:37)
[2021-04-08] MEDS: SIMVASTATIN 20 MG TABLET 40 MG PO (08:37)
[2021-04-08] MEDS: ACETAMINOPHEN 325 MG TABLET 650 MG PO (08:50)
[2021-04-08] MEDS: METOPROLOL TARTRATE 12.5 MG TABLET PO ×2 (09:05→21:50)
--- NOTE | 2021-04-08 10:33 | PM.PNCARD ---
Progress Note: A&P Assessment and Plan (1) Acute diastolic CHF (congestive heart failure): Code(s): I50.31 - Acute diastolic (congestive) heart failure Status: Acute Assessment and Plan: Patient, who has a history of LVH and diastolic dysfunction, presents with new onset of acute diastolic heart failure. She has diuresed well with IV furosemide. Will shift to furosemide 40mg p.o. b.i.d. BP better but still above goal. Consider increasing amlodipine to 10mg when her dizziness resolves Check orthostatics-became dizzy after getting up to go to the bathroom this morning Daily BMP Consider an OPT ischemia evaluation. (2) Premature ventricular contractions: Code(s): I49.3 - Ventricular premature depolarization Status: Acute Assessment and Plan: Frequent PVCs, which can interfere with normal left ventricular function if in the range of a 10-20% PVC burden. Continue metoprolol Electrolytes within normal limits today Patient may need an outpatient Holter monitor to quantitate PVCs if frequent PVCs persist. (3) Hypertension: Code(s): I10 - Essential (primary) hypertension Status: Acute Assessment and Plan: Not at goal. (4) Chronic kidney disease, stage 3: Code(s): N18.30 - Chronic kidney disease, stage 3 unspecified Status: Acute Assessment and Plan: Acute on chronic kidney disease. Subjective Date/time seen: 04/08/21 10:33 Cariology follow up for CHF Interval history: Date of service 04/08/2021: She is complaining of dizziness today. She has been given meclizine but is still feeling dizzy. She had been up to the bathroom and then began to experience dizziness. denies any shortness of breath, chest pain, palpitations. Leg swelling has resolved. Review of Systems Constitutional: Constitutional: Reports fatigue Eyes: Eyes: Reports no additional eye complaints ENT: Denies epistaxis and Denies neck pain Cardiovascular: Cardiovascular: Denies chest pain, Reports pedal edema, Reports leg edema, Reports lightheadedness, Denies palpitations, Reports dyspnea and Reports dyspnea on exertion Respiratory: Respiratory: Denies cough, Reports dyspnea and Reports dyspnea on exertion Gastrointestinal: Gastrointestinal: Denies hematochezia and Reports diarrhea (chronic intermittent) Genitourinary: Genitourinary: Denies hematuria Musculoskeletal: Musculoskeletal: Denies neck pain Integumentary/Breasts: Skin/Breast: Reports wounds Neurologic: Denies Abnormal speech present and Denies confusion Psychiatric: Psychiatric: Reports no additional psychiatric complaints and Denies confusion Endocrine: Endocrine: Reports fatigue and Denies palpitations Exam Narrative: Pleasant older female lying in bed. Alert and oriented. Const: General: comfortable and no acute distress; No confusion Orientation/consciousness: No confusion HENMT: Head: normal to inspection General nose exam: no epistaxis Mouth: Yes moist mucous membranes Eyes: General: appearance normal, both eyes and all related structures EOM: EOMs intact bilaterally Neck: Neck: supple and no JVD Carotids: bruit ( bruit versus transmitted murmur bilaterally) Resp: Effort & Inspection: normal respiratory effort Auscultation: crackles ( Mild, bilateral bases) Other: few scattered rales and diminished breath sounds in the bases Cardio: Rate: regular rate Rhythm: regular rhythm and other ( Frequent ectopy) Heart sounds: Murmur heart sound present (2/6 [place] RUSB, LUSB) GI: Inspection: non-distended Auscultation: normal bowel sounds Skin: General skin exam: normal color and no rashes or lesions noted Neuro: General: No confusion Cognition (Neuro): normal cognition Speech: normal speech Motor exam (neuro): Normal motor muscle tone present throughout Extrem: General: nor
[2021-04-08 11:45] LABS: Glucose Point of Care 170 mg/dl (65-105)
[2021-04-08 16:50] LABS: Glucose Point of Care 187 mg/dl (65-105)
[2021-04-08] MEDS: FUROSEMIDE 40 MG TABLET PO (16:52)
--- NOTE | 2021-04-08 17:05 | PM.IMPN ---
Progress Note: A&P Assessment and Plan (1) Premature ventricular contractions: Code(s): I49.3 - Ventricular premature depolarization Status: Acute Assessment and Plan: (2) Congestive heart failure: Code(s): I50.9 - Heart failure, unspecified Status: Acute Assessment and Plan: (3) Acute respiratory failure with hypoxia: Code(s): J96.01 - Acute respiratory failure with hypoxia Status: Acute Assessment and Plan: (4) Chronic kidney disease, stage 3: Code(s): N18.30 - Chronic kidney disease, stage 3 unspecified Status: Acute Assessment and Plan: (5) Anemia: Code(s): D64.9 - Anemia, unspecified Status: Chronic (6) Hypertension: Code(s): I10 - Essential (primary) hypertension Status: Acute (7) Type 2 diabetes mellitus: Code(s): E11.9 - Type 2 diabetes mellitus without complications Status: Acute Assessment and Plan: Additional Plan 04/07/21 She was sent in due to bradycardia however her heart rate has been in the 70s on the monitor with frequent, poorly perfusing or non perfusing PVCs. These seem to be more frequent recently, the etiology of which is not entirely clear at this time. Chest CTA shows findings consistent with pulmonary arterial hypertension which were not mentioned on imaging in November 2020 thus I think it would be prudent to repeat echocardiogram. Previous echocardiogram showed hypokinesis of the basal inferoseptal segment though she has no known history of [place]. Repeat echo with 60-65% ejection fraction hypokinesis of basal inferior septal segment. Grade 2 diastolic dysfunction, cqyd-ev-hgzdossf aortic valve stenosis zznu-kl-pltgzznf MR sdms-ht-mnkbnaim TR severe pulmonary hypertension estimated at 65 mm Hg done on Magnesium was low at 1.5 and she was given IV magnesium. Repeat this a.m. is normal She has had longstanding hypertension that does not appear to be ideally controlled. No significant caffeine or alcohol use. Apnea link shows HIGH likelihood of VIVIENNE. TSH normal. Cardiology was consulted and their input is greatly appreciated. Continue monitoring. Acute on chronic Diastolic CHF. Previous echocardiogram showed grade 1 diastolic dysfunction. She is getting IV Lasix therapy with good urine output and improvement of her shortness of breath and leg swelling. Continue strict intake and output Weights daily She is on Lasix 40 mg at home but continued to gain weight on this, will possibly need adjustments upon discharge and close follow-up with [facility] following. Appreciate their recommendations Continue monitoring. Due to acute CHF exacerbation she was requiring 2 L of oxygen via nasal cannula. At this time with diuresis she is resting comfortably on room air at 94% saturation. Patient does not have any shortness of breath or cough at this time. Will continue monitoring her respiratory status and make adjustments if needed. Creatinine higher most likely due to fluid overload status. Creatinine improving with IV diuresis. Recheck And monitor BMP while diurese. Creatinine slightly up today Blood pressures were reviewed and they do not appear to be adequately controlled when reviewing records over the last several years. Her systolic blood pressures are frequently in the 150s to 170s if not a bit higher. She certainly has room for medication adjustments but at this time I will see how she does with diuresis and trend blood pressures overnight. Patient has chronic anemia with a stable hemoglobin hematocrit. Hemoglobin A1c stable at 7.0%. Continue Januvia. Initiate sliding scale insulin, Accu-Cheks, and hypoglycemic protocol. 04/08/21 Revi
[2021-04-08] MEDS: MONTELUKAST SODIUM 10 MG TABLET PO (21:49)
[2021-04-08] MEDS: amLODIPine BESYLATE 5 MG TABLET PO (21:49)
[2021-04-08] MEDS: traZODone HCL 50 MG TABLET PO (21:51)
[2021-04-08 22:50] LABS: Glucose Point of Care 195 mg/dl (65-105)
[2021-04-09] VITALS (8 sets, daily range): BP systolic 122–152; BP diastolic 50–90; PULSE 61–80; RESP 16; TEMP 36.1–36.8; O2SAT 90–96
[2021-04-09] MEDS: ACETAMINOPHEN 325 MG TABLET 650 MG PO (01:35)
[2021-04-09 07:36] LABS: Glucose Point of Care 157 mg/dl (65-105)
[2021-04-09] MEDS: PARoxetine 20 MG TABLET 40 MG PO (08:27)
[2021-04-09] MEDS: MAGNESIUM OXIDE 400 MG TABLET PO (08:27)
[2021-04-09] MEDS: ENOXAPARIN 40 MG/0.4 ML SYRINGE SUB-Q (08:28)
[2021-04-09] MEDS: PANTOPRAZOLE 40 MG TABLET PO (08:28)
[2021-04-09] MEDS: FUROSEMIDE 40 MG TABLET PO (08:28)
[2021-04-09] MEDS: EZETIMIBE 10 MG TABLET PO (08:28)
[2021-04-09] MEDS: SIMVASTATIN 20 MG TABLET 40 MG PO (08:28)
[2021-04-09] MEDS: FERROUS SULFATE 324 MG TABLET PO (08:28)
[2021-04-09] MEDS: METOPROLOL TARTRATE 25 MG TABLET PO (08:29)
[2021-04-09] MEDS: METOPROLOL TARTRATE 12.5 MG TABLET PO (08:30)
--- NOTE | 2021-04-09 12:17 | PM.DS ---
DS: Admitting Diagnosis Discharge Date 04/09/21 Admitting Diagnosis (1) Premature ventricular contractions: Code(s): I49.3 - Ventricular premature depolarization Status: Acute Assessment and Plan: She was sent in due to bradycardia however her heart rate has been in the 70s on the monitor with frequent, poorly perfusing or non perfusing PVCs. These seem to be more frequent recently, the etiology of which is not entirely clear at this time. Chest CTA shows findings consistent with pulmonary arterial hypertension which were not mentioned on imaging in November 2020 thus I think it would be prudent to repeat echocardiogram. Previous echocardiogram showed hypokinesis of the basal inferoseptal segment though she has no known history of [place]. Electrolytes look okay though magnesium level is currently pending. She has had longstanding hypertension that does not appear to be ideally controlled. No significant caffeine or alcohol use. She denies concerns for sleep apnea though we will do apnea link tonight given the above findings on imaging. Check TSH. I will ask Dr. Hughes to see her in consultation for her opinion with regards to this nice lady. (2) Congestive heart failure: Code(s): I50.9 - Heart failure, unspecified Status: Acute Assessment and Plan: Previous echocardiogram showed grade 1 diastolic dysfunction. She does have bilateral pleural effusions with mild shortness of breath thus will cautiously diuresed with close monitoring of volume status. (3) Chronic kidney disease, stage 3: Code(s): N18.30 - Chronic kidney disease, stage 3 unspecified Status: Acute Assessment and Plan: Creatinine is a bit higher than what she typically runs however seems to be within her range. Monitor closely while diuresing. (4) Anemia: Code(s): D64.9 - Anemia, unspecified Status: Chronic Assessment and Plan: Patient has chronic anemia with a stable hemoglobin hematocrit. (5) Hypertension: Code(s): I10 - Essential (primary) hypertension Status: Acute Assessment and Plan: Blood pressures were reviewed and they do not appear to be adequately controlled when reviewing records over the last several years. Her systolic blood pressures are frequently in the 150s to 170s if not a bit higher. She certainly has room for medication adjustments but at this time I will see how she does with diuresis and trend blood pressures overnight. (6) Type 2 diabetes mellitus: Code(s): E11.9 - Type 2 diabetes mellitus without complications Status: Acute Assessment and Plan: Hemoglobin A1c was 6.8% in November 2020. Continue Januvia. Initiate sliding scale insulin, Accu-Cheks, and hypoglycemic protocol. DS: Discharge Diagnosis Discharge Diagnosis (1) Severe pulmonary hypertension: Code(s): I27.20 - Pulmonary hypertension, unspecified Status: Acute Assessment and Plan: Severe pulmonary hypertension, estimated pulmonary arterial systolic pressure is 65 mmHg. (2) Acute respiratory failure with hypoxia: Code(s): J96.01 - Acute respiratory failure with hypoxia Status: Acute (3) Acute diastolic CHF (congestive heart failure): Code(s): I50.31 - Acute diastolic (congestive) heart failure Status: Acute (4) Premature ventricular contractions: Code(s): I49.3 - Ventricular premature depolarization Status: Acute (5) Gastroesophageal reflux: Code(s): K21.9 - Gastro-esophageal reflux disease without esophagitis Status: Acute (6) Hypertension: Code(s): I10 - Essential (primary) hypertension Status: Acute (7) Type 2 diabetes mellitus: Code(s): E11.9 - Type 2 diabetes mellitus without complications Status: Acute (8) Chronic kidney disease, stage 3: Code(s): N18.30 - Chronic kidney disease, stage 3 unspecified Status: Acute (9) Vertigo: Code(s): R42 - Dizziness and gid
[2021-04-09 12:20] LABS: Glucose Point of Care 173 mg/dl (65-105)
--- NOTE | 2021-04-09 12:46 | PM.PNCARD ---
Progress Note: A&P Assessment and Plan (1) Acute diastolic CHF (congestive heart failure): Code(s): I50.31 - Acute diastolic (congestive) heart failure Status: Acute Assessment and Plan: Patient, who has a history of LVH and diastolic dysfunction, presents with new onset of acute diastolic heart failure. She has diuresed well with IV furosemide. Now on oral furosemide BP better but still above goal. Will up titrate antihypertensives as an OP Possible Holter to quantitate PVC's - will address at f/u visit Consider an OPT ischemia evaluation. (2) Premature ventricular contractions: Code(s): I49.3 - Ventricular premature depolarization Status: Acute Assessment and Plan: Frequent PVCs, which can interfere with normal left ventricular function if in the range of a 10-20% PVC burden. Continue metoprolol Electrolytes within normal limits today Patient may need an outpatient Holter monitor to quantitate PVCs if frequent PVCs persist. (3) Hypertension: Code(s): I10 - Essential (primary) hypertension Status: Acute Assessment and Plan: Not at goal. (4) Chronic kidney disease, stage 3: Code(s): N18.30 - Chronic kidney disease, stage 3 unspecified Status: Acute Assessment and Plan: Acute on chronic kidney disease. Subjective Date/time seen: 04/09/21 12:46 Interval history: Date of service 04/08/2021: She is complaining of dizziness today. She has been given meclizine but is still feeling dizzy. She had been up to the bathroom and then began to experience dizziness. denies any shortness of breath, chest pain, palpitations. Leg swelling has resolved. Date of service 04/09/2021: Still has complaints of dizziness. Also complaining of fatigue but does not have any cardiac complaints. Plan is for patient to discharge home today. Review of Systems Constitutional: Constitutional: Reports fatigue Eyes: Eyes: Reports no additional eye complaints ENT: Denies epistaxis and Denies neck pain Cardiovascular: Cardiovascular: Denies chest pain, Reports pedal edema, Reports leg edema, Reports lightheadedness, Denies palpitations, Reports dyspnea and Reports dyspnea on exertion Respiratory: Respiratory: Denies cough, Reports dyspnea and Reports dyspnea on exertion Gastrointestinal: Gastrointestinal: Denies hematochezia and Reports diarrhea (chronic intermittent) Genitourinary: Genitourinary: Denies hematuria Musculoskeletal: Musculoskeletal: Denies neck pain Integumentary/Breasts: Skin/Breast: Reports wounds Neurologic: Denies confusion Psychiatric: Psychiatric: Reports no additional psychiatric complaints and Denies confusion Endocrine: Endocrine: Reports fatigue and Denies palpitations Exam Narrative: Pleasant older female lying in bed. Alert and oriented. Const: General: comfortable and no acute distress; No confusion Orientation/consciousness: No confusion HENMT: Head: normal to inspection General nose exam: no epistaxis Mouth: Yes moist mucous membranes Eyes: General: appearance normal, both eyes and all related structures EOM: EOMs intact bilaterally Neck: Neck: supple and no JVD Thyroid: abnormal thyroid Carotids: bruit ( bruit versus transmitted murmur bilaterally) Lymphatic: lymphadenopathy not noted Resp: Effort & Inspection: normal respiratory effort Auscultation: crackles ( Mild, bilateral bases) diffuse Other: few scattered rales and diminished breath sounds in the bases Cardio: Rate: regular rate Rhythm: regular rhythm and other ( Frequent ectopy) Heart sounds: Murmur heart sound present (2/6 [place] RUSB, LUSB) GI: Inspection: non-distended Auscultation: normal bowel sounds Skin: General skin exam: normal color and no rashes or lesions noted Neuro: General: No confusion Cognition (Neuro): marcus
== END 2021-04-09 14:15 | DRG 291 ==
LOC: ANHED 08:51 → ANH2MED 14:55
PROVIDERS: Internal Medicine; Physician Assistant; Admitting Provider Internal Medicine; Emergency Provider Emergency Medicine; PCP Family Medicine; Visit Provider Hospitalist
DX: I13.0 Hypertensive heart and chronic kidney disease with heart failure and stage 1 through stage 4 chronic kidney disease, or unspecified chronic kidney disease (principal); I50.33 Acute on chronic diastolic (congestive) heart failure; J96.01 Acute respiratory failure with hypoxia; I49.3 Ventricular premature depolarization; Z20.822 Contact with and (suspected) exposure to COVID-19; D64.9 Anemia, unspecified; M19.90 Unspecified osteoarthritis, unspecified site; E11.22 Type 2 diabetes mellitus with diabetic chronic kidney disease; N18.30 Chronic kidney disease, stage 3 unspecified; K21.9 Gastro-esophageal reflux disease without esophagitis; E78.5 Hyperlipidemia, unspecified; E11.42 Type 2 diabetes mellitus with diabetic polyneuropathy; F32.9 Major depressive disorder, single episode, unspecified; H81.10 Benign paroxysmal vertigo, unspecified ear; Z90.49 Acquired absence of other specified parts of digestive tract; Z98.42 Cataract extraction status, left eye; Z98.41 Cataract extraction status, right eye; Z90.710 Acquired absence of both cervix and uterus
CPT/HCPCS: 36415; 70551; 71046; 71275; 80048; 80053; 82948; 83036; 83735; 83880; 84443; 84484; 85025; 85027; 85380; 87426; 93005; 93306; 94762; 96365; 96372; 96375; 96376; 97110; 97163; 99285; A9270; C9803; G0378; J1650; J1815; J1940; J3475; Q9967

== ENCOUNTER 2021-04-29 11:57 | Inpatient (IN) | payer MEDICARE, SELFPAY ==
[2021-04-29] VITALS (7 sets, daily range): BP systolic 141–161; BP diastolic 54–77; PULSE 57–66; RESP 16–18; TEMP 36.6; O2SAT 93–100; BMI 23.6
--- NOTE | ~2021-04-29 | XR_ITS ---
EXAMINATION: XR foot RT min 3V EXAM DATE: 04/29/2021 13:22 INDICATION: Wound. TECHNIQUE: Right foot dorsoplantar, lateral and oblique projections obtained and reviewed. There is no prior study for comparison. FINDINGS: There is juxta-articular well-corticated sizable erosion at the right 1st metatarsal head/n jaycob, could indicate gout. No aggressive appearing erosive change to suggest osteomyelitis. 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 Bunion formation. There are no acute fractures identified. Th ere are no acute fractures identified. No radiopaque foreign bodies identified. Mild to moderate swel ling over the foot and leg, less than the contralateral side. IMPRESSION: 1. Right 1st metatarsal juxta-articular erosion could indicate gout. Osteoarthritis. 2. Soft tissue swelling. Reviewed, dictated and finalized at location A. IMPRESSION: 1. Right 1st metatarsal juxta-articular erosion could indicate gout. Osteoarth ritis. 2. Soft tissue swelling.
--- NOTE | ~2021-04-29 | US_ITS ---
EXAMINATION: US venous doppler LE EXAM DATE: 04/30/2021 11:09 INDICATION: Bilateral leg edema. TECHNIQUE: Multiple grayscale, color flow and Doppler images of the lower extremity deep venous syste ms bilaterally were obtained and reviewed. There is no prior study for comparison. FINDINGS: Right side: The right common femoral, femoral and profunda veins demonstrate normal color flow, respi ratory variation, augmentation and compressibility. Compressibility, color flow confirmed within the right popliteal, posterior tibial, peroneal, and greater saphenous veins. Left side: The left common femoral, femoral and profunda veins demonstrate normal color flow, respira tory variation, augmentation and compressibility. Compressibility, color flow confirmed within the l eft popliteal, posterior tibial, peroneal, and greater saphenous veins. IMPRESSION: 1. No lower extremity deep venous thrombosis bilaterally. Reviewed, dictated and finalized at location A.
--- NOTE | ~2021-04-29 | XR_ITS ---
EXAMINATION: XR foot LT min 3V EXAM DATE: 04/29/2021 13:22 INDICATION: Left foot wound. TECHNIQUE: Left foot dorsoplantar, lateral and oblique projections obtained and reviewed. There is n o prior study for comparison. FINDINGS: There is diffuse swelling over the left calf, ankle, foot. There is a metallic linear forei gn body which could be an orthopedic K wire remnant projecting over undersurface of the 3rd metatarsa l bone. There is chronic comminuted 1st proximal phalangeal base fracture with nonunion and severe secondary osteoarthritis of the metatarsophalangeal joint. Some heterotopic ossification could indicate some co ntinued attempted healing response, or could be tophus formation from underlying gout. No definite acute osseous erosive change, although diffuse mottled appearance to the 1st metatarsopha langeal joint. No acute fracture line identified. IMPRESSION: 1. Left 1st proximal phalangeal base comminuted fracture, nonunion, secondary MTP osteoarthritis. Go ut not excludable. 2. Pin-like foreign body along the undersurface 3rd metatarsal bone. 3. Extensive soft tissue swelling. Reviewed, dictated and finalized at location A. IMPRESSION: 1. Left 1st proximal phalangeal base comminuted fracture, nonunion, secondary MTP osteoarthritis. Gout not excludable. 2. Pin-like foreign body along the undersurface 3rd metatarsal bone. 3. Extensive soft tissue swelling.
[2021-04-29 14:02] LABS: Basophils Percent Auto 0.5 % (0.2-1.2); Eosinophils Absolute Auto 0.2 K/mm3 (0-0.3); Hematocrit 34.6 % (37.0-47.0); Hemoglobin 11.4 g/dL (12.0-15.0); Immature Granulocyte Absolute 0.02 K/mm3 (0.00-0.031); Immature Granulocyte Percent A 0.3 % (0-0.5); Lymphocytes Absolute Auto 1.25 K/mm3 (0.9-3.2); Lymphocytes Percent Auto 21.6 % (18.3-44.2); Mean Corpuscular HGB Conc 32.9 g/dl (32-36); Mean Corpuscular Hemoglobin 30.2 pg (26-34); Mean Corpuscular Volume 91.5 fl (80-100); Mean Platelet Volume 9.1 fl (7.4-10.4); Monocytes Absolute Auto 0.4 K/mm3 (0.1-0.6); Monocytes Percent Auto 6.7 % (2.6-8.5); Neutrophils Absolute Auto 3.9 K/mm3 (1.3-6.7); Neutrophils Percent Auto 66.9 % (45.5-73.1); Platelet Count Result 208 k/mm3 (150-375); Red Blood Count 3.78 M/mm3 (4.2-5.4); Red Cell Distribution Width 13.2 % (11.5-14.5); White Blood Count 5.8 K/mm3 (4.5-10.0)
[2021-04-29 14:11] LABS: Lactic Acid Reflex 0.7 mmol/L (0.7-2.1)
[2021-04-29 14:12] LABS: Alanine Aminotransferase 16 U/L (4-35); Albumin Level 4.3 g/dL (3.5-5.1); Alkaline Phosphatase 89 U/L (38-126); Anion Gap 8 mmol/L (8-16); Aspartate Amino Transferase 31 U/L (14-36); Bilirubin,Total 0.3 mg/dL (0.2-1.3); Blood Urea Nitrogen 40 mg/dL (7-17); CRP 2.9 mg/dL (<1.0); Calcium 9.1 mg/dL (8.4-10.2); Carbon Dioxide 30 mmol/L (22-30); Chloride 100 mmol/L (98-107); Estimated CRCL calculation 28 ml/min; Estimated Glomerular Filt Rate 39; Glucose 176 mg/dL (65-110); Potassium 4.7 mmol/L (3.4-5.0); Sodium 138 mmol/L (137-145)
[2021-04-29] MEDS: SILVERGEL (ELTA) 45 ML 1 APPLIC TOPICAL (14:57)
[2021-04-29 15:16] LABS: Erythrocyte Sedimentation Rate 89 mm/hr (0-20)
--- NOTE | 2021-04-29 15:24 | ED.GENADULT ---
HPI - General Adult General Chief complaint: Skin/Abscess/Foreign Body Stated complaint: SENT FOR IV ATB, FOOT ULCERS Time Seen by Provider: 04/29/21 12:52 Source: RN notes reviewed History of Present Illness HPI narrative: Patient presents emergency department from home for bilateral foot wounds. Patient is currently followed by her residential appliance repair technician Dr. Pisano was seen in evaluation yesterday she was noted to have wounds on her second toe on the right as well as swelling and erythema in her left foot was started on Keflex yesterday imaging was obtained and he called back today requesting to come to the emergency department as he feels she is in need of IV antibiotics the patient states she has been taking antibiotics as prescribed she denies any fevers or chills states she does have a history of diabetes mellitus and has seen wound care in the past for wounds on her feet patient states she was recently admitted for heart failure Related Data Home Medications Medication Instructions Recorded Confirmed Januvia 100 mg PO DAILY 07/24/19 04/05/21 ezetimibe 10 mg PO DAILY 07/24/19 04/05/21 fluticasone propionate 1 spray INTRANASAL PRN PRN 07/24/19 04/05/21 furosemide 40 mg PO DAILY 07/24/19 04/05/21 montelukast 10 mg PO HS 07/24/19 04/05/21 omeprazole 20 mg PO DAILY 07/24/19 04/05/21 paroxetine HCl 40 mg PO DAILY 07/24/19 04/05/21 meclizine 12.5 mg PO QID PRN 12/12/20 04/05/21 metoprolol tartrate 25 mg PO TID 12/12/20 04/06/21 ondansetron 4 mg PO TID PRN 12/12/20 04/05/21 simvastatin 40 mg PO DAILY 12/12/20 04/05/21 amlodipine 5 mg PO HS 04/05/21 04/05/21 ferrous sulfate 325 mg PO BID 04/05/21 04/05/21 Allergies Allergy/AdvReac Type Severity Reaction Status Date / Time influenza A (H1N1) virus Allergy Unknown Swelling Verified 04/05/21 16:04 vaccine [id number] 2008 of Lip/Tongue/Throat Influenza Virus Vaccines Allergy Unknown Swelling Verified 04/05/21 16:04 of Lip/Tongue/Throat phenobarbital AdvReac Mild Hallucinati Verified 04/29/21 13:39 ng Review of Systems Review of Systems: Gen.: Denies fevers or chills ENT: Denies congestion Respiratory: Denies shortness of breath or cough CV: Denies chest pain or palpitations GI: Denies abdominal pain nausea, emesis Musculoskeletal: Denies back pain or muscle pain Neuro: Denies numbness, tingling, weakness or focal weakness Skin: See HPI Except as documented, all other systems reviewed and negative [facility] Past Medical History Medical History Anemia History of blood transfusions. Arthritis Chronic kidney disease, stage 3 Creatinine seems to range between 0.7 and 1.30. Depression Diabetic peripheral neuropathy Diastolic congestive heart failure Echocardiogram on 12/13/2020 showed normal left ventricular size with moderate consent of left ventricular hypertrophy with overall good left ventricular systolic function with an EF measuring 62%. There was hypokinesis of the basal inferoseptal segment as well as grade 1 diastolic dysfunction with moderately enlarged left atrial chamber and atrial septal aneurysm. Diverticulitis Fracture of proximal end of right humerus (07/24/19) Gastroesophageal reflux GI bleed History of rectal polyps Hyperlipidemia Hypertension Type 2 diabetes mellitus Hemoglobin A1c was 6.8% on 12/12/2020. Surgical History Surgical History Fracture of right hip requiring operative repair History of appendectomy History of bilateral cataract extraction History of colon resection History of hysterectomy History of inguinal hernia repair History of rectal polypectomy Family History Family History Sibling Carcinoma of colon Father Black lung disease Heart disease Hypertension Mother Hypertension Other Diabetes mellitus Family history of arthritis Family history of
--- NOTE | 2021-04-29 18:54 | ADMGEN ---
This patient, Elizabeth Negron, was admitted to Medical Room 347-. Patient/family oriented to hospital policies and general routines including ID bracelet, bed and alarms, visiting hours, pain management, procedures, bathroom and other care routines, personal items, smoking policy, room service/diet, and visiting hours. Information on how to activate the Rapid Response Team has been discussed. Patient/Family are encouraged to report perceived risks to care and to ask questions if they do not understand what they are told or what they should do.
[2021-04-29] MEDS: ACETAMINOPHEN/CODEINE (*CRX) 300/30 MG TABLET 1 TAB PO (21:45)
--- NOTE | 2021-04-29 22:55 | PM.IMHP ---
H&P: HPI History of Present Illness Date/Time: 04/29/21 22:55 this is a 85-year-old female patient who has a history of congestive heart failure and swelling to her lower extremities. The patient came to the emergency room today with bilateral foot wounds. She went to see her cardiothoracic surgeon Dr. Pisano yesterday for evaluation of the 2nd toe on each foot. The patient was started on Keflex yesterday. She had imaging obtained and her cardiothoracic surgeon called her back to instruct her to come to the emergency room it she needed IV antibiotics. Patient denies any fever chills. She is diabetic. Right foot x-ray was read as right 1st metatarsal juxta-articular erosion could indicate gout. Osteoarthritis. Soft tissue swelling. Left foot x-ray was read as left 1st proximal phalangeal base comminuted fracture union secondary MTP osteoarthritis. Gout not excludable. Penlight foreign body along the underside 3rd metatarsal bone. Extensive soft tissue swelling. The patient was started on Primaxin and vancomycin. The patient is being admitted to observation status on the date of service of 04/29/2021. Chief Complaint: Infection to bilateral toe Review of Systems Review of Systems: All systems reviewed & are unremarkable except as noted in HPI and below Constitutional: Constitutional: Reports as per HPI and Reports no additional constitutional complaints Eyes: Eyes: Reports as per HPI and Reports no additional eye complaints ENT: Reports system reviewed and no additional complaints, except as documented and Reports Normal hearing present Cardiovascular: Cardiovascular: Reports no additional cardiovascular complaints Respiratory: Respiratory: Reports no additional respiratory complaints and Reports no additional respiratory complaints Gastrointestinal: Gastrointestinal: Reports as per HPI and Reports no additional gastrointestinal complaints Musculoskeletal: Musculoskeletal: Reports no additional musculoskeletal complaints Integumentary/Breasts: Skin/Breast: Reports system reviewed and no additional complaints, except as docu and Reports as per HPI Neurologic: Reports system reviewed and no additional complaints, except as documented, Reports as per HPI and Reports Normal hearing present Psychiatric: Psychiatric: Reports no additional psychiatric complaints and Reports as per HPI Endocrine: Endocrine: Reports no additional endocrine complaints Hematologic/Lymphatic: Hematologic/Lymphatic: Reports no additional hematologic/lymphatic complaints Allergic/Immunologic: Allergic/Immunologic: Reports no additional allergic/immunologic complaints [facility] Past Medical History Medical History Anemia History of blood transfusions. Arthritis Chronic kidney disease, stage 3 Creatinine seems to range between 0.7 and 1.30. Depression Diabetic peripheral neuropathy Diastolic congestive heart failure Echocardiogram on 12/13/2020 showed normal left ventricular size with moderate consent of left ventricular hypertrophy with overall good left ventricular systolic function with an EF measuring 62%. There was hypokinesis of the basal inferoseptal segment as well as grade 1 diastolic dysfunction with moderately enlarged left atrial chamber and atrial septal aneurysm. Diverticulitis Fracture of proximal end of right humerus (07/24/19) Gastroesophageal reflux GI bleed History of rectal polyps Hyperlipidemia Hypertension Type 2 diabetes mellitus Hemoglobin A1c was 6.8% on 12/12/2020. Surgical History Surgical History Fracture of right hip requiring operative repair History of appendectomy History of bilateral cataract extraction History of colon resection History of hysterectomy History of inguinal hernia repair History of rectal polypectomy Family History Family History Sibling Carcinoma of colon
[2021-04-29 22:57] LABS: Glucose Point of Care 177 mg/dl (65-105)
[2021-04-29] MEDS: FERROUS SULFATE 324 MG TABLET PO (22:58)
[2021-04-29] MEDS: traZODone HCL 50 MG TABLET PO (22:58)
[2021-04-29] MEDS: SIMVASTATIN 20 MG TABLET 40 MG PO (22:58)
[2021-04-29] MEDS: MONTELUKAST SODIUM 10 MG TABLET PO (22:59)
[2021-04-29] MEDS: METOPROLOL TARTRATE 25 MG TABLET PO (22:59)
[2021-04-30] MEDS: COLCHICINE 0.6 MG TABLET PO ×3 (00:19→20:49)
[2021-04-30 05:39] VITALS: BP 153/61; PULSE 60; RESP 16; TEMP 36.1; O2SAT 97
[2021-04-30 06:28] LABS: Basophils Percent Auto 0.6 % (0.2-1.2); Eosinophils Absolute Auto 0.3 K/mm3 (0-0.3); Eosinophils Percent Auto 6.6 % (0-4.4); Immature Granulocyte Absolute 0.02 K/mm3 (0.00-0.031); Immature Granulocyte Percent A 0.4 % (0-0.5); Lymphocytes Absolute Auto 0.97 K/mm3 (0.9-3.2); Lymphocytes Percent Auto 20.6 % (18.3-44.2); Mean Corpuscular HGB Conc 32.3 g/dl (32-36); Mean Corpuscular Hemoglobin 29.6 pg (26-34); Mean Corpuscular Volume 91.7 fl (80-100); Mean Platelet Volume 8.8 fl (7.4-10.4); Monocytes Absolute Auto 0.4 K/mm3 (0.1-0.6); Monocytes Percent Auto 7.9 % (2.6-8.5); Neutrophils Percent Auto 63.9 % (45.5-73.1); Platelet Count Result 180 k/mm3 (150-375); Red Blood Count 3.38 M/mm3 (4.2-5.4); Red Cell Distribution Width 12.8 % (11.5-14.5); White Blood Count 4.7 K/mm3 (4.5-10.0)
[2021-04-30 06:38] LABS: Anion Gap 7 mmol/L (8-16); Blood Urea Nitrogen 32 mg/dL (7-17); Calcium 8.8 mg/dL (8.4-10.2); Carbon Dioxide 31 mmol/L (22-30); Chloride 99 mmol/L (98-107); Estimated CRCL calculation 30 ml/min; Estimated Glomerular Filt Rate 43; Glucose 153 mg/dL (65-110); Potassium 4.1 mmol/L (3.4-5.0); Sodium 137 mmol/L (137-145); Uric Acid 9.4 mg/dL (2.5-7.5)
[2021-04-30 07:44] LABS: Glucose Point of Care 134 mg/dl (65-105)
[2021-04-30 08:17] LABS: Hemoglobin A1C 6.9 % (<5.7)
[2021-04-30 08:36] VITALS: PULSE 62
[2021-04-30] MEDS: EZETIMIBE 10 MG TABLET PO (08:36)
[2021-04-30] MEDS: METOPROLOL TARTRATE 25 MG TABLET PO ×3 (08:36→16:50)
[2021-04-30] MEDS: FLUTICASONE PROPIONATE 0.05% NA SPR 16 GM BTL (*BKC) 1 SPRAY NASAL (08:37)
[2021-04-30] MEDS: PARoxetine 20 MG TABLET 40 MG PO (08:38)
[2021-04-30] MEDS: PANTOPRAZOLE 40 MG TABLET PO (08:38)
[2021-04-30] MEDS: FERROUS SULFATE 324 MG TABLET PO ×2 (08:38→16:50)
[2021-04-30] MEDS: amLODIPine BESYLATE 5 MG TABLET PO (08:38)
[2021-04-30] MEDS: FUROSEMIDE INJ 40 MG/4 ML VIAL IV PUSH (08:39)
[2021-04-30] MEDS: MAGNESIUM OXIDE 400 MG TABLET PO (08:39)
[2021-04-30] MEDS: ACETAMINOPHEN/CODEINE (*CRX) 300/30 MG TABLET 1 TAB PO ×3 (08:50→22:02)
[2021-04-30 12:09] LABS: Glucose Point of Care 184 mg/dl (65-105)
--- NOTE | 2021-04-30 12:47 | PM.CNGS ---
Assessment and Plan Assessment and plan (1) Cellulitis of foot, left: Code(s): L03.116 - Cellulitis of left lower limb Status: Acute Assessment and Plan: the patient was admitted to be placed on IV antibiotics. I see no evidence of wounds that would need surgical debridement. The foreign body that was identified on the foot x-ray appears likely related to her prior history of toe surgery requiring a pin placement. She may follow up with her public transit specialist if there is any concerns that this pin may need to be removed. The toe fracture appears likely related to gout. All of this can be medically treated and does not require any emergent surgery by me. Since she has a public transit specialist already, she may follow up with him on discharge. Will sign off. (2) Closed fracture of left great toe: Code(s): S92.402A - Displaced unspecified fracture of left great toe, initial encounter for closed fracture Status: Acute (3) Gout: Code(s): M10.9 - Gout, unspecified Status: Acute (4) Diastolic congestive heart failure: Code(s): I50.30 - Unspecified diastolic (congestive) heart failure Status: Acute (5) Type 2 diabetes mellitus: Code(s): E11.9 - Type 2 diabetes mellitus without complications Status: Acute History of Present Illness Consult details Consult date: 04/30/21 Reason for consult: other ( Foot wound) Requesting physician: Blanche Crowe NP Narrative: this is an 85-year-old woman who I am asked to see in regards to a foot wound. She states that she just saw her public transit specialist yesterday who she follows for some chronic foot wounds and diabetic foot ulcers. He was concerned about the x-ray findings and some redness around her foot and wanted her to be placed on IV antibiotics. She has a history of a pin placed in her left foot for her toes curling. She denies any trauma to her left foot. She does have a small wound on her 2nd toe on the right. She does think that she had a history of gout in the past but had not been on any recent treatment for gout. She also has a history of congestive heart failure and has lower extremity edema. Review of Systems Review of Systems: All systems reviewed & are unremarkable except as noted in HPI and below Constitutional: Constitutional: Denies chills and Denies fever(s) Cardiovascular: Cardiovascular: Denies chest pain and Denies dyspnea Respiratory: Respiratory: Denies dyspnea Gastrointestinal: Gastrointestinal: Reports as per HPI Musculoskeletal: Musculoskeletal: Reports as per HPI and Reports deformity ( Bilateral toes) [facility] Past Medical History Medical History (Updated 04/30/21 @ 12:55 by Devendra Baldwin DO) Anemia History of blood transfusions. Arthritis Chronic kidney disease, stage 3 Creatinine seems to range between 0.7 and 1.30. Depression Diabetic peripheral neuropathy Diastolic congestive heart failure Echocardiogram on 12/13/2020 showed normal left ventricular size with moderate consent of left ventricular hypertrophy with overall good left ventricular systolic function with an EF measuring 62%. There was hypokinesis of the basal inferoseptal segment as well as grade 1 diastolic dysfunction with moderately enlarged left atrial chamber and atrial septal aneurysm. Diverticulitis Fracture of proximal end of right humerus (07/24/19) Gastroesophageal reflux GI bleed History of rectal polyps Hyperlipidemia Hypertension Type 2 diabetes mellitus Hemoglobin A1c was 6.8% on 12/12/2020. Surgical History Surgical History (Updated 04/30/21 @ 12:53 by Devendra Baldwin DO) Fracture of right hip requiring operative repair History of appendectomy History of bilateral cataract extraction History of colon resection History of hysterectomy History of inguinal hernia repair History of rectal polypectomy History of toe surgery Family History Family History Sibling
[2021-04-30] MEDS: SILVERGEL (ELTA) 45 ML 1 APPLIC TOPICAL (13:15)
[2021-04-30 13:16] VITALS: PULSE 64
[2021-04-30 14:00] VITALS: BP 137/58; PULSE 63; RESP 18; TEMP 36.7; O2SAT 97
--- NOTE | 2021-04-30 14:05 | PM.IMPN ---
Progress Note: A&P Assessment and Plan (1) Cellulitis of foot, left: Code(s): L03.116 - Cellulitis of left lower limb Status: Acute Assessment and Plan: The patient was started on vancomycin and Primaxin per antibiotic diabetic stewardship. Ortho is consulted. In the event that ortho declines consult then please consult surgery. According to the x-rays this could possibly be gout. So I did start the patient on colchicine. Will check her uric acid level in venous Dopplers as well. 04/30 Interval history: patient with bilateral toe infection and being treated with imipenem and vancomycin culture from wound and blood culture collected and will follow-up, patient was seen by surgery service patient does not need any surgical intervention most likely have injury to toes stemming from gout, and concerning for foreign re-presented pin from previous surgery, recommending to follow-up with her basket person once discharged, patient does complain of shooting pain in her toes, will start the patient on [place] as needed, will have PT OT evaluate the and further recommendation to follow, (2) Cellulitis of second toe, right: Code(s): L03.031 - Cellulitis of right toe Status: Acute Assessment and Plan: See above. Patient has redness swollen and tenderness to the 2nd toe on the right and the left. (3) Diabetes mellitus: Code(s): E11.9 - Type 2 diabetes mellitus without complications Status: Acute Assessment and Plan: Accu-Cheks a.c. with sliding scale insulin. Check A1c. Continue with Januvia (4) Closed fracture of left great toe: Code(s): S92.402A - Displaced unspecified fracture of left great toe, initial encounter for closed fracture Status: Acute Assessment and Plan: Patient may need a walking shoe. Ortho has been consulted. (5) Acute diastolic CHF (congestive heart failure): Code(s): I50.31 - Acute diastolic (congestive) heart failure Status: Acute Assessment and Plan: I changed her Lasix to IV. Continue with metoprolol (6) Hypertension: Code(s): I10 - Essential (primary) hypertension Status: Acute Assessment and Plan: Continue with metoprolol and Norvasc (7) Hyperlipidemia: Qualifiers: Hyperlipidemia type: unspecified Qualified Code(s): E78.5 - Hyperlipidemia, unspecified Code(s): E78.5 - Hyperlipidemia, unspecified Status: Chronic Assessment and Plan: Continue Zocor and Zetia Subjective Date/time seen: 04/30/21 14:05 this is a 85-year-old female patient who has a history of congestive heart failure and swelling to her lower extremities. The patient came to the emergency room today with bilateral foot wounds. She went to see her basket person Dr. Pisano yesterday for evaluation of the 2nd toe on each foot. The patient was started on Keflex yesterday. She had imaging obtained and her basket person called her back to instruct her to come to the emergency room it she needed IV antibiotics. Patient denies any fever chills. She is diabetic. Right foot x-ray was read as right 1st metatarsal juxta-articular erosion could indicate gout. Osteoarthritis. Soft tissue swelling. Left foot x-ray was read as left 1st proximal phalangeal base comminuted fracture union secondary MTP osteoarthritis. Gout not excludable. Penlight foreign body along the underside 3rd metatarsal bone. Extensive soft tissue swelling. The patient was started on Primaxin and vancomycin. The patient is being admitted to observation status on the date of service of 04/29/2021. 04/30 Interval history: patient with bilateral toe infection and being treated with imipenem and vancomycin culture from wound and blood culture collected and will follow-up, patient was seen by surgery service patient does not need any surgical intervention most likely have injury to toes stemming from gout, and concerning for foreign re-presented pin from
[2021-04-30 16:47] LABS: Glucose Point of Care 142 mg/dl (65-105)
[2021-04-30 16:50] VITALS: PULSE 62
[2021-04-30] MEDS: SIMVASTATIN 20 MG TABLET 40 MG PO (17:31)
[2021-04-30] MEDS: MONTELUKAST SODIUM 10 MG TABLET PO (20:49)
[2021-04-30] MEDS: traZODone HCL 50 MG TABLET PO (20:49)
[2021-04-30 21:14] LABS: Glucose Point of Care 154 mg/dl (65-105)
[2021-04-30 22:00] VITALS: BP 137/54; PULSE 61; RESP 18; TEMP 36.8; O2SAT 96
[2021-05-01 06:01] VITALS: BP 150/53; PULSE 64; RESP 18; TEMP 36.4; O2SAT 96
[2021-05-01 06:16] LABS: Hematocrit 30.4 % (37.0-47.0); Hemoglobin 9.9 g/dL (12.0-15.0); Mean Corpuscular HGB Conc 32.6 g/dl (32-36); Mean Corpuscular Hemoglobin 29.5 pg (26-34); Mean Corpuscular Volume 90.5 fl (80-100); Mean Platelet Volume 8.9 fl (7.4-10.4); Platelet Count Result 182 k/mm3 (150-375); Red Blood Count 3.36 M/mm3 (4.2-5.4); Red Cell Distribution Width 12.7 % (11.5-14.5); White Blood Count 4.5 K/mm3 (4.5-10.0)
[2021-05-01 06:25] LABS: Anion Gap 9 mmol/L (8-16); Blood Urea Nitrogen 36 mg/dL (7-17); Calcium 8.4 mg/dL (8.4-10.2); Carbon Dioxide 28 mmol/L (22-30); Chloride 99 mmol/L (98-107); Estimated CRCL calculation 30 ml/min; Estimated Glomerular Filt Rate 43; Glucose 160 mg/dL (65-110); Potassium 4.2 mmol/L (3.4-5.0); Sodium 136 mmol/L (137-145)
[2021-05-01 08:15] VITALS: PULSE 64
[2021-05-01] MEDS: MAGNESIUM OXIDE 400 MG TABLET PO (08:15)
[2021-05-01] MEDS: PANTOPRAZOLE 40 MG TABLET PO (08:15)
[2021-05-01] MEDS: FERROUS SULFATE 324 MG TABLET PO ×2 (08:15→16:46)
[2021-05-01] MEDS: PARoxetine 20 MG TABLET 40 MG PO (08:15)
[2021-05-01] MEDS: amLODIPine BESYLATE 5 MG TABLET PO (08:15)
[2021-05-01] MEDS: EZETIMIBE 10 MG TABLET PO (08:15)
[2021-05-01] MEDS: METOPROLOL TARTRATE 25 MG TABLET PO ×3 (08:15→16:45)
[2021-05-01] MEDS: COLCHICINE 0.6 MG TABLET PO ×2 (08:15→20:10)
[2021-05-01] MEDS: FUROSEMIDE INJ 40 MG/4 ML VIAL IV PUSH (08:16)
[2021-05-01] MEDS: SILVERGEL (ELTA) 45 ML 1 APPLIC TOPICAL (08:18)
[2021-05-01] MEDS: ACETAMINOPHEN/CODEINE (*CRX) 300/30 MG TABLET 1 TAB PO ×2 (10:06→20:09)
[2021-05-01 11:58] LABS: Glucose Point of Care 137 mg/dl (65-105)
[2021-05-01 12:52] VITALS: PULSE 73
--- NOTE | 2021-05-01 13:52 | PM.IMPN ---
Progress Note: A&P Assessment and Plan (1) Cellulitis of foot, left: Code(s): L03.116 - Cellulitis of left lower limb Status: Acute Assessment and Plan: The patient was started on vancomycin and Primaxin per antibiotic diabetic stewardship. Ortho is consulted. In the event that ortho declines consult then please consult surgery. According to the x-rays this could possibly be gout. So I did start the patient on colchicine. Will check her uric acid level in venous Dopplers as well. 04/30 Interval history: patient with bilateral toe infection and being treated with imipenem and vancomycin culture from wound and blood culture collected and will follow-up, patient was seen by surgery service patient does not need any surgical intervention most likely have injury to toes stemming from gout, and concerning for foreign re-presented pin from previous surgery, recommending to follow-up with her water plant operator once discharged, patient does complain of shooting pain in her toes, will start the patient on [place] as needed, will have PT OT evaluate the and further recommendation to follow, 05/01 Interval history: patient with bilateral feet cellulitis being treated imipenem and vancomycin, blood and wound culture no growth so far, if there is no growth and 72 hours will stop antibiotic, patient states pain is getting little better, denies any fever or chills did work with physical therapy. will continue to monitor. (2) Cellulitis of second toe, right: Code(s): L03.031 - Cellulitis of right toe Status: Acute Assessment and Plan: See above. Patient has redness swollen and tenderness to the 2nd toe on the right and the left. (3) Diabetes mellitus: Code(s): E11.9 - Type 2 diabetes mellitus without complications Status: Acute Assessment and Plan: Accu-Cheks a.c. with sliding scale insulin. Check A1c. Continue with Januvia (4) Closed fracture of left great toe: Code(s): S92.402A - Displaced unspecified fracture of left great toe, initial encounter for closed fracture Status: Acute Assessment and Plan: Patient may need a walking shoe. Ortho has been consulted. (5) Acute diastolic CHF (congestive heart failure): Code(s): I50.31 - Acute diastolic (congestive) heart failure Status: Acute Assessment and Plan: I changed her Lasix to IV. Continue with metoprolol (6) Hypertension: Code(s): I10 - Essential (primary) hypertension Status: Acute Assessment and Plan: Continue with metoprolol and Norvasc (7) Hyperlipidemia: Qualifiers: Hyperlipidemia type: unspecified Qualified Code(s): E78.5 - Hyperlipidemia, unspecified Code(s): E78.5 - Hyperlipidemia, unspecified Status: Chronic Assessment and Plan: Continue Zocor and Zetia Subjective Date/time seen: 05/01/21 13:52 04/30 Interval history: patient with bilateral toe infection and being treated with imipenem and vancomycin culture from wound and blood culture collected and will follow-up, patient was seen by surgery service patient does not need any surgical intervention most likely have injury to toes stemming from gout, and concerning for foreign re-presented pin from previous surgery, recommending to follow-up with her water plant operator once discharged, patient does complain of shooting pain in her toes, will start the patient on [place] as needed, will have PT OT evaluate the and further recommendation to follow. 05/01 Interval history: patient with bilateral feet cellulitis being treated imipenem and vancomycin, blood and wound culture no growth so far, if there is no growth and 72 hours will stop antibiotic, patient states pain is getting little better, denies any fever or chills did work with physical therapy. will continue to monitor. Review of Systems Review of Systems: All systems reviewed & are unremarkable except as noted in HPI and below Exam Dorian
[2021-05-01 14:00] VITALS: BP 129/56; PULSE 58; RESP 14; TEMP 36.3; O2SAT 98
[2021-05-01 16:45] VITALS: PULSE 66
[2021-05-01 16:51] LABS: Glucose Point of Care 143 mg/dl (65-105)
[2021-05-01] MEDS: SIMVASTATIN 20 MG TABLET 40 MG PO (18:57)
[2021-05-01] MEDS: traZODone HCL 50 MG TABLET PO (20:10)
[2021-05-01] MEDS: MONTELUKAST SODIUM 10 MG TABLET PO (20:10)
[2021-05-01 21:29] VITALS: BP 130/56; PULSE 65; RESP 17; TEMP 36.1; O2SAT 96
[2021-05-01 21:35] LABS: Glucose Point of Care 159 mg/dl (65-105)
[2021-05-02] VITALS (7 sets, daily range): BP systolic 128–151; BP diastolic 58–72; PULSE 56–78; RESP 16–20; TEMP 35.8–36.6; O2SAT 94–99
[2021-05-02 06:08] LABS: Hematocrit 31.8 % (37.0-47.0); Hemoglobin 10.5 g/dL (12.0-15.0); Mean Corpuscular Hemoglobin 29.2 pg (26-34); Mean Corpuscular Volume 88.3 fl (80-100); Platelet Count Result 215 k/mm3 (150-375); Red Cell Distribution Width 12.5 % (11.5-14.5); White Blood Count 5.1 K/mm3 (4.5-10.0)
[2021-05-02 06:18] LABS: Anion Gap 10 mmol/L (8-16); Blood Urea Nitrogen 36 mg/dL (7-17); Calcium 8.8 mg/dL (8.4-10.2); Carbon Dioxide 27 mmol/L (22-30); Chloride 98 mmol/L (98-107); Estimated CRCL calculation 28 ml/min; Estimated Glomerular Filt Rate 39; Glucose 144 mg/dL (65-110); Potassium 4.6 mmol/L (3.4-5.0); Sodium 135 mmol/L (137-145)
[2021-05-02] MEDS: MAGNESIUM OXIDE 400 MG TABLET PO (08:20)
[2021-05-02] MEDS: METOPROLOL TARTRATE 25 MG TABLET PO ×3 (08:20→18:17)
[2021-05-02] MEDS: PANTOPRAZOLE 40 MG TABLET PO (08:21)
[2021-05-02] MEDS: amLODIPine BESYLATE 5 MG TABLET PO (08:21)
[2021-05-02] MEDS: FERROUS SULFATE 324 MG TABLET PO ×2 (08:21→18:14)
[2021-05-02] MEDS: PARoxetine 20 MG TABLET 40 MG PO (08:21)
[2021-05-02] MEDS: EZETIMIBE 10 MG TABLET PO (08:21)
[2021-05-02] MEDS: COLCHICINE 0.6 MG TABLET PO ×2 (08:21→20:17)
[2021-05-02] MEDS: SILVERGEL (ELTA) 45 ML 1 APPLIC TOPICAL (08:22)
[2021-05-02 08:25] LABS: Glucose Point of Care 136 mg/dl (65-105)
[2021-05-02] MEDS: ACETAMINOPHEN/CODEINE (*CRX) 300/30 MG TABLET 1 TAB PO ×2 (08:25→20:17)
[2021-05-02] MEDS: FUROSEMIDE INJ 40 MG/4 ML VIAL IV PUSH (08:26)
--- NOTE | 2021-05-02 11:59 | PM.IMPN ---
Progress Note: A&P Assessment and Plan (1) Cellulitis of foot, left: Code(s): L03.116 - Cellulitis of left lower limb Status: Acute Assessment and Plan: 05/02/21 11:59 The patient was started on vancomycin and Primaxin per antibiotic diabetic stewardship. Ortho is consulted. In the event that ortho declines consult then please consult surgery. According to the x-rays this could possibly be gout. So I did start the patient on colchicine. Will check her uric acid level in venous Dopplers as well. 04/30 Interval history: patient with bilateral toe infection and being treated with imipenem and vancomycin culture from wound and blood culture collected and will follow-up, patient was seen by surgery service patient does not need any surgical intervention most likely have injury to toes stemming from gout, and concerning for foreign re-presented pin from previous surgery, recommending to follow-up with her pediatric sports medicine specialist once discharged, patient does complain of shooting pain in her toes, will start the patient on [place] as needed, will have PT OT evaluate the and further recommendation to follow, 05/01 Interval history: patient with bilateral feet cellulitis being treated imipenem and vancomycin, blood and wound culture no growth so far, if there is no growth and 72 hours will stop antibiotic, patient states pain is getting little better, denies any fever or chills did work with physical therapy. will continue to monitor. 05/02 Interval history: Patient with bilateral cellulitis of the toes, examined does today with her nurse, patient continue to have erythema along the toes and forefoot, will continue Zosyn and vancomycin, so far there is no growth blood and wound culture, patient will complete 72 hours culture tomorrow if there is no growth of MRSA will stop the vancomycin, will continue to wound dressing, will continue PT OT and further recommendation to follow. (2) Cellulitis of second toe, right: Code(s): L03.031 - Cellulitis of right toe Status: Acute Assessment and Plan: See above. Patient has redness swollen and tenderness to the 2nd toe on the right and the left. (3) Diabetes mellitus: Code(s): E11.9 - Type 2 diabetes mellitus without complications Status: Acute Assessment and Plan: Accu-Cheks a.c. with sliding scale insulin. Check A1c. Continue with Januvia (4) Closed fracture of left great toe: Code(s): S92.402A - Displaced unspecified fracture of left great toe, initial encounter for closed fracture Status: Acute Assessment and Plan: Patient may need a walking shoe. Ortho has been consulted. (5) Acute diastolic CHF (congestive heart failure): Code(s): I50.31 - Acute diastolic (congestive) heart failure Status: Acute Assessment and Plan: I changed her Lasix to IV. Continue with metoprolol (6) Hypertension: Code(s): I10 - Essential (primary) hypertension Status: Acute Assessment and Plan: Continue with metoprolol and Norvasc (7) Hyperlipidemia: Qualifiers: Hyperlipidemia type: unspecified Qualified Code(s): E78.5 - Hyperlipidemia, unspecified Code(s): E78.5 - Hyperlipidemia, unspecified Status: Chronic Assessment and Plan: Continue Zocor and Zetia Subjective Date/time seen: 05/02/21 11:59 The patient was started on vancomycin and Primaxin per antibiotic diabetic stewardship. Ortho is consulted. In the event that ortho declines consult then please consult surgery. According to the x-rays this could possibly be gout. So I did start the patient on colchicine. Will check her uric acid level in venous Dopplers as well. 04/30 Interval history: patient with bilateral toe infection and being treated with imipenem and vancomycin culture from wound and blood culture collected and will follow-up, patient was seen by surgery service patient does not need any surgical intervention most li
[2021-05-02 12:17] LABS: Glucose Point of Care 146 mg/dl (65-105)
[2021-05-02 16:41] LABS: Glucose Point of Care 182 mg/dl (65-105)
[2021-05-02] MEDS: SIMVASTATIN 20 MG TABLET 40 MG PO (18:19)
[2021-05-02] MEDS: MONTELUKAST SODIUM 10 MG TABLET PO (20:17)
[2021-05-02] MEDS: traZODone HCL 50 MG TABLET PO (20:17)
[2021-05-02 20:58] LABS: Glucose Point of Care 143 mg/dl (65-105)
[2021-05-02 21:55] LABS: Vancomycin Trough 14.4 ug/mL (10.0-20.0)
[2021-05-03 04:11] VITALS: BP 130/60; PULSE 56; RESP 17; TEMP 35.7; O2SAT 95
[2021-05-03 06:05] LABS: Anion Gap 5 mmol/L (8-16); Blood Urea Nitrogen 39 mg/dL (7-17); Calcium 8.8 mg/dL (8.4-10.2); Carbon Dioxide 32 mmol/L (22-30); Chloride 97 mmol/L (98-107); Estimated CRCL calculation 30 ml/min; Estimated Glomerular Filt Rate 43; Glucose 130 mg/dL (65-110); Potassium 4.1 mmol/L (3.4-5.0); Sodium 134 mmol/L (137-145)
[2021-05-03 08:05] VITALS: PULSE 62
[2021-05-03] MEDS: MAGNESIUM OXIDE 400 MG TABLET PO (08:05)
[2021-05-03] MEDS: PARoxetine 20 MG TABLET 40 MG PO (08:05)
[2021-05-03] MEDS: COLCHICINE 0.6 MG TABLET PO ×2 (08:05→20:00)
[2021-05-03] MEDS: METOPROLOL TARTRATE 25 MG TABLET PO ×3 (08:05→17:04)
[2021-05-03] MEDS: FERROUS SULFATE 324 MG TABLET PO ×2 (08:05→17:04)
[2021-05-03] MEDS: EZETIMIBE 10 MG TABLET PO (08:05)
[2021-05-03] MEDS: amLODIPine BESYLATE 5 MG TABLET PO (08:05)
[2021-05-03] MEDS: PANTOPRAZOLE 40 MG TABLET PO (08:05)
[2021-05-03] MEDS: FUROSEMIDE INJ 40 MG/4 ML VIAL IV PUSH (08:05)
[2021-05-03] MEDS: SILVERGEL (ELTA) 45 ML 1 APPLIC TOPICAL (08:06)
--- NOTE | 2021-05-03 08:58 | PM.IMPN ---
Progress Note: A&P Assessment and Plan (1) Cellulitis of foot, left: Code(s): L03.116 - Cellulitis of left lower limb Status: Acute Assessment and Plan: 05/03/21 08:58 The patient was started on vancomycin and Primaxin per antibiotic diabetic stewardship. Ortho is consulted. In the event that ortho declines consult then please consult surgery. According to the x-rays this could possibly be gout. So I did start the patient on colchicine. Will check her uric acid level in venous Dopplers as well. 04/30 Interval history: patient with bilateral toe infection and being treated with imipenem and vancomycin culture from wound and blood culture collected and will follow-up, patient was seen by surgery service patient does not need any surgical intervention most likely have injury to toes stemming from gout, and concerning for foreign re-presented pin from previous surgery, recommending to follow-up with her funeral pre arrangement counselor once discharged, patient does complain of shooting pain in her toes, will start the patient on [place] as needed, will have PT OT evaluate the and further recommendation to follow, 05/01 Interval history: patient with bilateral feet cellulitis being treated imipenem and vancomycin, blood and wound culture no growth so far, if there is no growth and 72 hours will stop antibiotic, patient states pain is getting little better, denies any fever or chills did work with physical therapy. will continue to monitor. 05/02 Interval history: Patient with bilateral cellulitis of the toes, examined does today with her nurse, patient continue to have erythema along the toes and forefoot, will continue Zosyn and vancomycin, so far there is no growth blood and wound culture, patient will complete 72 hours culture tomorrow if there is no growth of MRSA will stop the vancomycin, will continue to wound dressing, will continue PT OT and further recommendation to follow. 05/03 Interval history: today patient is sitting in the chair is feeling much pain is improved, has no new complaint and been participating in PT OT, so far there is no growth wound and blood culture will monitor 1 more day and discharge the patient home tomorrow on oral antibiotics. (2) Cellulitis of second toe, right: Code(s): L03.031 - Cellulitis of right toe Status: Acute Assessment and Plan: See above. Patient has redness swollen and tenderness to the 2nd toe on the right and the left. (3) Diabetes mellitus: Code(s): E11.9 - Type 2 diabetes mellitus without complications Status: Acute Assessment and Plan: Accu-Cheks a.c. with sliding scale insulin. Check A1c. Continue with Januvia (4) Closed fracture of left great toe: Code(s): S92.402A - Displaced unspecified fracture of left great toe, initial encounter for closed fracture Status: Acute Assessment and Plan: Patient may need a walking shoe. Ortho has been consulted. (5) Acute diastolic CHF (congestive heart failure): Code(s): I50.31 - Acute diastolic (congestive) heart failure Status: Acute Assessment and Plan: I changed her Lasix to IV. Continue with metoprolol (6) Hypertension: Code(s): I10 - Essential (primary) hypertension Status: Acute Assessment and Plan: Continue with metoprolol and Norvasc (7) Hyperlipidemia: Qualifiers: Hyperlipidemia type: unspecified Qualified Code(s): E78.5 - Hyperlipidemia, unspecified Code(s): E78.5 - Hyperlipidemia, unspecified Status: Chronic Assessment and Plan: Continue Zocor and Zetia Subjective Date/time seen: 05/03/21 08:58 The patient was started on vancomycin and Primaxin per antibiotic diabetic stewardship. Ortho is consulted. In the event that ortho declines consult then please consult surgery. According to the x-rays this could possibly be gout. So I did start the patient on colchicine. Will check her uric acid level in moises
[2021-05-03 09:05] LABS: Hematocrit 34.4 % (37.0-47.0); Hemoglobin 11.2 g/dL (12.0-15.0); Mean Corpuscular HGB Conc 32.6 g/dl (32-36); Mean Corpuscular Hemoglobin 29.2 pg (26-34); Mean Corpuscular Volume 89.8 fl (80-100); Mean Platelet Volume 8.5 fl (7.4-10.4); Platelet Count Result 220 k/mm3 (150-375); Red Blood Count 3.83 M/mm3 (4.2-5.4); Red Cell Distribution Width 12.6 % (11.5-14.5); White Blood Count 5.7 K/mm3 (4.5-10.0)
[2021-05-03 09:11] LABS: Glucose Point of Care 142 mg/dl (65-105)
[2021-05-03 12:41] LABS: Glucose Point of Care 184 mg/dl (65-105)
[2021-05-03 12:59] VITALS: PULSE 62
[2021-05-03] MEDS: ACETAMINOPHEN/CODEINE (*CRX) 300/30 MG TABLET 1 TAB PO ×2 (13:01→20:03)
[2021-05-03 14:00] VITALS: BP 134/77; PULSE 59; TEMP 36.2; O2SAT 98
[2021-05-03 17:04] VITALS: PULSE 64
[2021-05-03] MEDS: SIMVASTATIN 20 MG TABLET 40 MG PO (17:04)
[2021-05-03 17:09] LABS: Glucose Point of Care 160 mg/dl (65-105)
[2021-05-03] MEDS: MONTELUKAST SODIUM 10 MG TABLET PO (20:00)
[2021-05-03] MEDS: traZODone HCL 50 MG TABLET PO (20:00)
[2021-05-03 21:43] VITALS: BP 129/47; PULSE 58; RESP 16; TEMP 36; O2SAT 97
[2021-05-03 22:43] LABS: Glucose Point of Care 183 mg/dl (65-105)
[2021-05-04 05:33] VITALS: BP 155/59; PULSE 62; RESP 16; TEMP 36; O2SAT 97
[2021-05-04 06:01] LABS: Hematocrit 29.7 % (37.0-47.0); Mean Corpuscular HGB Conc 33.7 g/dl (32-36); Mean Corpuscular Hemoglobin 29.6 pg (26-34); Mean Corpuscular Volume 87.9 fl (80-100); Mean Platelet Volume 8.5 fl (7.4-10.4); Platelet Count Result 197 k/mm3 (150-375); Red Blood Count 3.38 M/mm3 (4.2-5.4); Red Cell Distribution Width 12.5 % (11.5-14.5); White Blood Count 4.2 K/mm3 (4.5-10.0)
[2021-05-04 06:17] LABS: Anion Gap 4 mmol/L (8-16); Blood Urea Nitrogen 39 mg/dL (7-17); Calcium 8.7 mg/dL (8.4-10.2); Carbon Dioxide 30 mmol/L (22-30); Chloride 100 mmol/L (98-107); Estimated CRCL calculation 33 ml/min; Estimated Glomerular Filt Rate 47; Glucose 136 mg/dL (65-110); Potassium 4.5 mmol/L (3.4-5.0); Sodium 134 mmol/L (137-145)
[2021-05-04] MEDS: ACETAMINOPHEN/CODEINE (*CRX) 300/30 MG TABLET 1 TAB PO (08:51)
[2021-05-04 08:52] VITALS: PULSE 68
[2021-05-04] MEDS: EZETIMIBE 10 MG TABLET PO (08:52)
[2021-05-04] MEDS: MAGNESIUM OXIDE 400 MG TABLET PO (08:52)
[2021-05-04] MEDS: PANTOPRAZOLE 40 MG TABLET PO (08:52)
[2021-05-04] MEDS: PARoxetine 20 MG TABLET 40 MG PO (08:52)
[2021-05-04] MEDS: METOPROLOL TARTRATE 25 MG TABLET PO ×2 (08:52→12:41)
[2021-05-04] MEDS: amLODIPine BESYLATE 5 MG TABLET PO (08:52)
[2021-05-04] MEDS: FERROUS SULFATE 324 MG TABLET PO (08:52)
[2021-05-04] MEDS: COLCHICINE 0.6 MG TABLET PO (08:53)
[2021-05-04] MEDS: SILVERGEL (ELTA) 45 ML 1 APPLIC TOPICAL (08:53)
[2021-05-04 09:23] LABS: Glucose Point of Care 122 mg/dl (65-105)
[2021-05-04 09:23] LABS: Glucose Point of Care 144 mg/dl (65-105)
--- NOTE | 2021-05-04 12:00 | PM.DS ---
DS: Admitting Diagnosis Discharge Date 05/04/2021 Admitting Diagnosis Chief Complaint: Infection to bilateral toe DS: Discharge Diagnosis Discharge Diagnosis (1) Cellulitis of foot, left: Code(s): L03.116 - Cellulitis of left lower limb Status: Acute Assessment and Plan: 05/03/21 08:58 The patient was started on vancomycin and Primaxin per antibiotic diabetic stewardship. Ortho is consulted. In the event that ortho declines consult then please consult surgery. According to the x-rays this could possibly be gout. So I did start the patient on colchicine. Will check her uric acid level in venous Dopplers as well. 04/30 Interval history: patient with bilateral toe infection and being treated with imipenem and vancomycin culture from wound and blood culture collected and will follow-up, patient was seen by surgery service patient does not need any surgical intervention most likely have injury to toes stemming from gout, and concerning for foreign re-presented pin from previous surgery, recommending to follow-up with her horse shoer once discharged, patient does complain of shooting pain in her toes, will start the patient on [place] as needed, will have PT OT evaluate the and further recommendation to follow, 05/01 Interval history: patient with bilateral feet cellulitis being treated imipenem and vancomycin, blood and wound culture no growth so far, if there is no growth and 72 hours will stop antibiotic, patient states pain is getting little better, denies any fever or chills did work with physical therapy. will continue to monitor. 05/02 Interval history: Patient with bilateral cellulitis of the toes, examined does today with her nurse, patient continue to have erythema along the toes and forefoot, will continue Zosyn and vancomycin, so far there is no growth blood and wound culture, patient will complete 72 hours culture tomorrow if there is no growth of MRSA will stop the vancomycin, will continue to wound dressing, will continue PT OT and further recommendation to follow. 05/03 Interval history: today patient is sitting in the chair is feeling much pain is improved, has no new complaint and been participating in PT OT, so far there is no growth wound and blood culture will monitor 1 more day and discharge the patient home tomorrow on oral antibiotics. (2) Cellulitis of second toe, right: Code(s): L03.031 - Cellulitis of right toe Status: Acute Assessment and Plan: See above. Patient has redness swollen and tenderness to the 2nd toe on the right and the left. (3) Diabetes mellitus: Code(s): E11.9 - Type 2 diabetes mellitus without complications Status: Acute Assessment and Plan: Accu-Cheks a.c. with sliding scale insulin. Check A1c. Continue with Januvia (4) Closed fracture of left great toe: Code(s): S92.402A - Displaced unspecified fracture of left great toe, initial encounter for closed fracture Status: Acute Assessment and Plan: Patient may need a walking shoe. Ortho has been consulted. (5) Acute diastolic CHF (congestive heart failure): Code(s): I50.31 - Acute diastolic (congestive) heart failure Status: Acute Assessment and Plan: I changed her Lasix to IV. Continue with metoprolol (6) Hypertension: Code(s): I10 - Essential (primary) hypertension Status: Acute Assessment and Plan: Continue with metoprolol and Norvasc (7) Hyperlipidemia: Qualifiers: Hyperlipidemia type: unspecified Qualified Code(s): E78.5 - Hyperlipidemia, unspecified Code(s): E78.5 - Hyperlipidemia, unspecified Status: Chronic Assessment and Plan: Continue Zocor and Zetia DS: Summary Hospital Course Reason for hospitalization: this is a 85-year-old female patient who has a history of congestive heart failure and swelling to her lower extremities. The patient came to the emergency room today with bilat
[2021-05-04 12:09] LABS: Glucose Point of Care 158 mg/dl (65-105)
[2021-05-04 12:41] VITALS: PULSE 78
[2021-05-04] MEDS: allopurinoL 50 MG TABLET PO (12:41)
== END 2021-05-04 14:30 | DRG 637 ==
LOC: ANHED 15:31 → ANH3MEDSUR 17:19 → ANH3MED 18:18
PROVIDERS: Nurse Practitioner; Admitting Provider Internal Medicine; Emergency Provider Emergency Medicine; PCP Family Medicine; Visit Provider Family Medicine
DX: E11.628 Type 2 diabetes mellitus with other skin complications (principal); I50.31 Acute diastolic (congestive) heart failure; I13.0 Hypertensive heart and chronic kidney disease with heart failure and stage 1 through stage 4 chronic kidney disease, or unspecified chronic kidney disease; L03.116 Cellulitis of left lower limb; L03.031 Cellulitis of right toe; E11.22 Type 2 diabetes mellitus with diabetic chronic kidney disease; N18.30 Chronic kidney disease, stage 3 unspecified; E78.5 Hyperlipidemia, unspecified; M10.9 Gout, unspecified; E11.42 Type 2 diabetes mellitus with diabetic polyneuropathy; E11.621 Type 2 diabetes mellitus with foot ulcer; L97.519 Non-pressure chronic ulcer of other part of right foot with unspecified severity; K21.9 Gastro-esophageal reflux disease without esophagitis; S92.412A Displaced fracture of proximal phalanx of left great toe, initial encounter for closed fracture; X58.XXXA Exposure to other specified factors, initial encounter; Z90.49 Acquired absence of other specified parts of digestive tract; Z98.42 Cataract extraction status, left eye; Z98.41 Cataract extraction status, right eye; Z90.710 Acquired absence of both cervix and uterus
CPT/HCPCS: 36415; 73630; 80048; 80053; 80202; 82948; 83036; 83605; 84550; 85025; 85027; 85652; 86140; 87040; 87070; 87205; 93970; 96365; 96366; 96367; 96375; 96376; 97110; 97116; 97161; 97165; 97535; 99285; A9270; G0378; J0743; J1940; J3370

== ENCOUNTER 2021-06-17 07:29 | Outpatient (RCR) | payer MEDICARE, SELFPAY ==
[2021-03-23 12:00] VITALS: BMI 24.3
--- NOTE | 2021-04-07 09:28 | PCWOUND ---
WOCN NOTE Patient in hospital and was assessed. all wounds to toes are healed and closed. cancelled outpatient next visit.
== END 2021-06-21 23:59 | disposition home or self-care (01) ==
LOC: ANHWOC 07:29
PROVIDERS: PCP Family Medicine; Visit Provider Podiatrist Foot & Ankle Surgery
DX: E11.621 Type 2 diabetes mellitus with foot ulcer (principal)
CPT/HCPCS: 99212; 99213; G0463

== ENCOUNTER 2021-08-12 07:08 | Outpatient (RCR) | payer MEDICARE, SELFPAY ==
[2021-06-22 00:04] VITALS: BMI 24.3
== END 2021-09-15 12:50 | disposition home or self-care (01) ==
LOC: ANHWOC 07:08
PROVIDERS: PCP Family Medicine; Visit Provider Podiatrist Foot & Ankle Surgery
DX: E11.621 Type 2 diabetes mellitus with foot ulcer (principal); L97.519 Non-pressure chronic ulcer of other part of right foot with unspecified severity
CPT/HCPCS: 99212; G0463

== ENCOUNTER 2022-01-05 13:06 | Observation (INO) | payer MEDICARE, SELFPAY ==
[2022-01-05] VITALS (15 sets, daily range): BP systolic 90–151; BP diastolic 60–74; PULSE 60–70; RESP 15–21; TEMP 36.1–36.8; O2SAT 90–99; BMI 23.1
--- NOTE | ~2022-01-05 | CT_ITS ---
EXAMINATION: CT brain wo con DATE: 01/05/2022 13:14 INDICATION: Cerebrovascular accident. TECHNIQUE: Computed tomography (CT) of the head was performed without intravenous contrast. The mA wa s adjusted according to patient size. Iterative reconstruction technique was employed. The dose-lengt h product was 605.33 mGy-cm. COMPARISON: Head CT 12/12/2020, brain MRI 04/09/2021 FINDINGS: There are scattered areas of low attenuation in the cerebral white matter. There is an old infarct in right occipital lobe. There is no intracranial hemorrhage, acute infarction, or abnormal i ntracranial mass lesion. The ventricles are normal in size. There is mild mucosal thickening in the p aranasal sinuses. There are likely changes of ocular lens replacement surgeries. The mastoid air cell s are normal. IMPRESSION: 1. 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 2. Stable moderate nonspecific cerebral white matter disease, which likely represents chronic small v essel ischemic disease. 3. I discussed this case with Dr. Kwan. Reviewed, dictated and finalized at location A. IMPRESSION: 1. 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 2. Stable moderate nonspecific cerebral white matter disease, which likely repr esents chronic small vessel ischemic disease. 3. I discussed this case with Dr. Kwan.
--- NOTE | ~2022-01-05 | MR_ITS ---
EXAMINATION: MR brain/brain stem wo con DATE: 01/06/2022 07:08 INDICATION: Left facial tingling. Left hand tingling. TECHNIQUE: Magnetic resonance imaging (MRI) of the brain and brainstem was performed without intraven ous contrast. COMPARISON: Brain MRI 04/09/2021, head CT 01/05/22 FINDINGS: There is no intracranial hemorrhage, acute infarction, or abnormal intracranial mass lesion . There is an old infarct in right occipital lobe. There are scattered areas of nonspecific increased T2-weighted signal intensity in the cerebral white matter, bilateral basal ganglia, and lisa. The ve ntricles are normal in size. The internal auditory canals and inner and middle ears are normal. The t rigeminal nerves are normal. No vascular loop compression. There is mild mucosal thickening in the et hmoid sinuses. There are likely changes of ocular lens replacement surgeries. IMPRESSION: 1. Old infarct in the right occipital lobe. 2. Stable moderate nonspecific cerebral white matter disease and pontine disease and disease of the b ilateral basal ganglia, which likely represents chronic small vessel ischemic disease. Reviewed, dictated and finalized at location A. IMPRESSION: 1. Old infarct in the right occipital lobe. 2. Stable moderate nonspecific cerebral white matter disease and pontine diseas e and disease of the bilateral basal ganglia, which likely represents chronic s mall vessel ischemic disease.
--- NOTE | ~2022-01-05 | CT_ITS ---
EXAMINATION: CTA brain carotid DATE: 01/05/2022 14:39 INDICATION: Left facial tingling. Left-sided headache. Blurry vision. TECHNIQUE: Computed tomographic angiography (CTA) of the head was performed with 100 mL Omnipaque 300 intravenous contrast. CTA of the neck was performed with intravenous contrast. Automated exposure co ntrol and iterative reconstruction technique were employed. The dose-length product was 1023.75 mGy-c m. Maximum intensity projection and volume rendered 3D-reconstructions were created by the technologi st on a separate workstation. COMPARISON: Head CT 01/05/22 FINDINGS: HEAD CTA: There is an old infarct in right occipital lobe. There are scattered areas of low attenuati on in the cerebral white matter. There is no intracranial hemorrhage, acute infarction, or abnormal i ntracranial mass lesion. The ventricles are normal in size. There is mild mucosal thickening in the p aranasal sinuses. The mastoid air cells are normal. There are likely changes of ocular lens replaceme nt surgeries. Left vertebral artery is dominant. There is no significant stenosis of basilar artery o r the posterior cerebral arteries. The posterior communicating arteries are normal. There is no signi ficant stenosis of the intracranial internal carotid arteries or anterior or middle cerebral arteries . Anterior communicating artery is normal. There is no aneurysm. NECK CTA: There is mild scarring at the lung apices. There are no pathologically enlarged lymph nodes . There is no significant stenosis of the vertebral arteries. There is plaque in the proximal interna l carotid arteries. There is 51% stenosis of the proximal right internal carotid artery relative to n ormal distal artery lumen diameter (NASCET criteria). There is 0% stenosis of the proximal left inter nal carotid artery relative to normal distal artery lumen diameter. There is severe cervical spondylo sis. IMPRESSION: 1. Old infarct in the right occipital lobe. 2. Moderate nonspecific cerebral white matter disease, which likely represents chronic small vessel i schemic disease. 3. No aneurysm or significant intracranial arterial stenosis. 4. 51% stenosis of the proximal right internal carotid artery relative to normal distal artery lumen diameter (NASCET criteria). 5. 0% stenosis of the proximal left internal carotid artery relative to normal distal artery lumen di ameter. Reviewed, dictated and finalized at location A. IMPRESSION: 1. Old infarct in the right occipital lobe. 2. Moderate nonspecific cerebral white matter disease, which likely represents chronic small vessel ischemic disease. 3. No aneurysm or significant intracranial arterial stenosis. 4. 51% stenosis of the proximal right internal carotid artery relative to marcus l distal artery lumen diameter (NASCET criteria). 5. 0% stenosis of the proximal left internal carotid artery relative to normal distal artery lumen diameter.
--- NOTE | ~2022-01-05 | XR_ITS ---
XR chest 1V portable 01/05/2022 13:31 Indication: Hypertension. Procedure: AP portable chest Comparison: Comparison to multiple prior studies sequentially, with oldest reviewed study dated 12/12. Findings: Heart size normal. There is atherosclerosis of the aorta. Chronic atelectasis/scarring left mid thorax unchanged. No acute focal pneumonia, edema or effusion. There are are calcified mediastin al lymph nodes, consistent with chronic granulomatous disease. There is a healed right humeral neck f racture. Impression: 1: No acute cardiopulmonary disease. Reviewed, dictated and finalized at location B. Impression: 1: No acute cardiopulmonary disease.
--- NOTE | 2022-01-05 13:07 | ECG_ITS ---
Measurements Intervals Stringer Rate: 64 P: 57 MS: 171 QRS: 93 QRSD: 121 T: 50 QT: 439 QTc: 455 Interpretive Statements SINUS RHYTHM WITH OCCASIONAL SUPRAVENTRICULAR PREMATURE COMPLEXES RIGHT BUNDLE BRANCH BLOCK [120+ ms QRS DURATION, UPRIGHT V1, 40+ ms S IN I/aVL/V4/V5/V6] COMPARED TO ECG 04/05/2021 08:15:01 NO SIGNIFICANT CHANGES Electronically Signed On 01-06-2022 7:18:15 CDT by Noel Sheikh M.D.
--- NOTE | 2022-01-05 13:08 | ED.NEUROSD ---
HPI - Neuro Symptoms/Deficit General Chief Complaint: Neuro Symptoms/Deficit Stated Complaint: headache,L hand numbness, lip tingling Time Seen by Provider: 01/05/22 13:07 History of Present Illness HPI Narrative: The patient is an 86-year-old female with a history of hypertension, congestive heart failure, hyperlipidemia, presenting to the emergency department for evaluation of left-sided headache, tingling in her left and right hand. Patient also reports left-sided facial tingling. Patient denies any vision changes, nausea or vomiting. Patient does report acute onset of left headache pain without radiation into the neck, shoulder, chest, back. She denies any frontal chest pain, shortness of breath. Patient has had no nausea, vomiting. No difficulty with speech or facial droop. Patient has no known history of a stroke. She is not on any anticoagulation. Patient denies any weakness or numbness. No difficulty moving her upper or lower extremities. She reports tingling in both hands only. No difficulty with thickener operator strength or movement. Patient transported via EMS, at the time of assessment, patient reports headache is resolved. She denies any ear pain. ED fast score per EMS was 0. Related Data Home Medications Medication Instructions Recorded Confirmed ezetimibe 10 mg tablet 10 mg PO DAILY 07/24/19 04/29/21 fluticasone propionate 50 1 spray intranasal BID PRN 07/24/19 04/29/21 mcg/actuation nasal Congestion spray,suspension furosemide 40 mg tablet 40 mg PO DAILY 07/24/19 04/29/21 montelukast 10 mg tablet 10 mg PO HS 07/24/19 04/29/21 omeprazole 20 mg capsule,delayed 20 mg PO DAILY 07/24/19 04/29/21 release paroxetine HCl 40 mg tablet 40 mg PO DAILY 07/24/19 04/29/21 sitagliptin 100 mg tablet (Januvia) 100 mg PO DAILY 07/24/19 04/29/21 meclizine 12.5 mg tablet 12.5 mg PO TID PRN Dizziness 12/12/20 04/29/21 metoprolol tartrate 25 mg tablet 25 mg PO TID 12/12/20 04/29/21 simvastatin 40 mg tablet 40 mg PO QPM 12/12/20 04/29/21 amlodipine 5 mg tablet 5 mg PO DAILY 04/05/21 04/29/21 ferrous sulfate 325 mg (65 mg 325 mg PO BID 04/05/21 04/29/21 iron) tablet acetaminophen 300 mg-codeine 30 mg 1 tablet PO QID PRN Pain, Moderate 04/29/21 04/29/21 tablet cephalexin 500 mg capsule 500 mg PO TID 04/29/21 04/29/21 Allergies Allergy/AdvReac Type Severity Reaction Status Date / Time influenza A (H1N1) virus Allergy Unknown Swelling Verified 04/29/21 19:33 vaccine m-jong-split 2009 of Lip/Tongue/Throat Influenza Virus Vaccines Allergy Unknown Swelling Verified 04/29/21 19:33 of Lip/Tongue/Throat phenobarbital AdvReac Mild Hallucinati Verified 04/29/21 19:33 ng Review of Systems Review of Systems: CONSTITUTIONAL: Denies fever, chills, or sweats. EYES: Denies visual changes, redness, or discharge. ENT: Denies rhinorrhea, congestion, sore throat, or otalgia. CARDIOVASCULAR: Denies chest pain, palpitations, or edema. RESPIRATORY: Denies cough or dyspnea. GASTROINTESTINAL: Denies abdominal pain, nausea, vomiting, or diarrhea. GENITOURINARY: Denies dysuria or hematuria. SKIN: Denies rash or itching. MUSCULOSKELETAL: Denies back pain, joint pain, or myalgia. NEUROLOGIC: Denies current headache, numbness, or weakness. Reports tingling sensation in bilateral hands. [facility] Past Medical History Medical History Anemia History of blood transfusions. Arthritis Chronic kidney disease, stage 3 Creatinine seems to range between 0.7 and 1.30. Depression Diabetic peripheral neuropathy Diastolic congestive heart failure Echocardiogram on 12/13/2020 showed normal left ventricular size with moderate consent of left ventricular hypertrophy with overall good left ventricular systolic function with an EF measuring 62%. There was hypokinesis of the basal inferoseptal segment as well as grade 1 diastolic dysfunction with moderately enlarged left atrial chamber and atri
[2022-01-05] MEDS: ACETAMINOPHEN 500 MG TABLET 1000 MG PO (13:46)
[2022-01-05] MEDS: ASPIRIN 81 MG CHEWABLE TABLET 324 MG PO (13:46)
[2022-01-05 13:50] LABS: Basophils Percent Auto 0.7 % (0.2-1.2); Eosinophils Absolute Auto 0.2 K/mm3 (0-0.3); Eosinophils Percent Auto 3.1 % (0-4.4); Hematocrit 36.5 % (37.0-47.0); Hemoglobin 11.9 g/dL (12.0-15.0); Immature Granulocyte Absolute 0.02 K/mm3 (0.00-0.031); Immature Granulocyte Percent A 0.3 % (0-0.5); Lymphocytes Absolute Auto 1.25 K/mm3 (0.9-3.2); Lymphocytes Percent Auto 21.3 % (18.3-44.2); Mean Corpuscular HGB Conc 32.6 g/dl (32-36); Mean Corpuscular Hemoglobin 31.2 pg (26-34); Mean Corpuscular Volume 95.5 fl (80-100); Mean Platelet Volume 9.5 fl (7.4-10.4); Monocytes Absolute Auto 0.4 K/mm3 (0.1-0.6); Monocytes Percent Auto 6.5 % (2.6-8.5); Neutrophils Percent Auto 68.1 % (45.5-73.1); Platelet Count Result 154 k/mm3 (150-375); Red Blood Count 3.82 M/mm3 (4.2-5.4); White Blood Count 5.9 K/mm3 (4.5-10.0)
[2022-01-05 13:52] LABS: Prothrombin Time 13.2 Seconds (11.1-14.7)
[2022-01-05 13:53] LABS: Partial Thromboplastin Time 30.2 SECONDS (22.3-36.8)
[2022-01-05 13:54] LABS: Alanine Aminotransferase 17 U/L (6-35); Albumin Level 4.4 g/dL (3.5-5.1); Alkaline Phosphatase 64 U/L (38-126); Anion Gap 8 mmol/L (8-16); Aspartate Amino Transferase 35 U/L (14-36); Bilirubin,Total 0.3 mg/dL (0.2-1.3); Blood Urea Nitrogen 48 mg/dL (7-17); Calcium 8.8 mg/dL (8.4-10.2); Carbon Dioxide 29 mmol/L (22-30); Chloride 99 mmol/L (98-107); Estimated Glomerular Filt Rate 39; Glucose 199 mg/dL (65-110); Potassium 4.9 mmol/L (3.4-5.0); Sodium 136 mmol/L (137-145)
[2022-01-05 14:03] LABS: Troponin I < 0.012 ng/mL (0.000-0.034)
[2022-01-05 14:06] LABS: Glucose Point of Care 233 mg/dl (65-105)
[2022-01-05 14:40] LABS: Glucose Point of Care 157 mg/dl (65-105)
--- NOTE | 2022-01-05 18:30 | PM.IMHP ---
H&P: HPI History of Present Illness Date/Time: 01/05/22 18:30 Chief Complaint: Headache, left hand numbness and tingling, visual disturbances. Narrative: This is a pleasant 86-year-old female with hypertension, dyslipidemia, type 2 diabetes mellitus, chronic kidney disease, and diastolic congestive heart failure who presented to the emergency department from [facility] for evaluation of headache, left hand numbness and tingling, and visual disturbances. She was in her usual state of health when she woke this morning. Around noontime lunch she developed a quick jabbing headache in the left frontal region with tingling in her hands, the left side of her face, and visual disturbances ?like things were jumping around.? Staff to her vital signs and patient reports that her blood pressure was 186/92 which is very high for her and unusual. Her symptoms improved by the time she arrived to the hospital with a FAST score of 0 per EMS. 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 51% stenosis of the right internal carotid artery was also noted. Due to TIA concerns, she is being admitted in this setting for further workup. At the time my evaluation her symptoms have essentially resolved. She has no specific complaints at this time and specifically denies vertigo, current visual changes, focal weakness, facial droop, slurred speech, and difficulty swallowing. Review of Systems Review of Systems: Twelve systems were reviewed. No fever, chills, or sweats. Headache is improved. No cold or flu symptoms. No sick contacts. No chest pain, pleuritic pain, or palpitations. No cough or shortness of breath. No nausea or vomiting. She denies diarrhea and dysuria. No issues with carpal or cubital tunnel syndrome. No recent falls. Except as documented, all other systems were reviewed and are negative. [facility] Past Medical History Medical History (Updated 01/05/22 @ 22:29 by Evie Riddle PA-C) Anemia History of blood transfusions. Aortic valve stenosis [id number] aortic valve stenosis on echocardiogram in April 2021 with a valve area of 1.1 to 1.5 centimeter squared. Arthritis Chronic kidney disease, stage 3 Creatinine seems to range between 0.7 and 1.30. Depression Diabetic peripheral neuropathy Diastolic congestive heart failure Echocardiogram on 12/13/2020 showed normal left ventricular size with moderate consent of left ventricular hypertrophy with overall good left ventricular systolic function with an EF measuring 62%. There was hypokinesis of the basal inferoseptal segment as well as grade 1 diastolic dysfunction with moderately enlarged left atrial chamber and atrial septal aneurysm. Diverticulitis Fracture of proximal end of right humerus (07/24/19) Gastroesophageal reflux GI bleed History of rectal polyps Hyperlipidemia Hypertension Severe pulmonary hypertension Noted on echocardiogram April 2021. PASP was 60 5 mmHg. Stenosis of right internal carotid artery 51% stenosis of the proximal right ICA on CTA in December 2021. Type 2 diabetes mellitus Hemoglobin A1c was 6.8% on 12/12/2020. Surgical History Surgical History Fracture of right hip requiring operative repair History of appendectomy History of bilateral cataract extraction History of colon resection History of hysterectomy History of inguinal hernia repair History of rectal polypectomy History of toe surgery Family History Family History Sibling Carcinoma of colon Father Black lung disease Heart disease Hypertension Mother Hypertension Other Diabetes mellitus Family history of arthritis Family history of gout Family history of heart disease in male family member before age 55 Family history of kidney disease Social History Social Histor
[2022-01-05 19:32] LABS: SARS-CoV-2 RNA PCR Negative
--- NOTE | 2022-01-05 21:34 | PC.NURSE ---
This patient, Elizabeth Negron, was admitted to 3 [facility] Surg Room 315-01. Patient/family oriented to hospital policies and general routines including ID bracelet, bed and alarms, visiting hours, pain management, procedures, bathroom and other care routines, personal items, smoking policy, room service/diet, and visiting hours. Information on how to activate the Rapid Response Team has been discussed. Patient/Family are encouraged to report perceived risks to care and to ask questions if they do not understand what they are told or what they should do.
[2022-01-05] MEDS: MONTELUKAST SODIUM 10 MG TABLET PO (23:10)
[2022-01-05] MEDS: SIMVASTATIN 20 MG TABLET 40 MG PO (23:10)
[2022-01-05] MEDS: METOPROLOL TARTRATE 25 MG TABLET PO (23:10)
[2022-01-05] MEDS: traZODone HCL 50 MG TABLET PO (23:10)
[2022-01-06] VITALS (12 sets, daily range): BP systolic 109–142; BP diastolic 50–82; PULSE 57–86; RESP 18; TEMP 36.1–36.9; O2SAT 94–99
--- NOTE | 2022-01-06 | ECHO_ITS ---
Patient Info Name: Elizabeth Negron Age: 86 years : 1935 Gender: Female Ht: 67 in Wt: 147 lbs BSA: 1.78 m2 HR: 68 bpm BP: 138 / 71 mmHg Technical Quality: Good Exam Date: 01/06/2022 3:55 PM Exam Location: [facility] Room: [facility] Patient Status: Inpatient Admit Date: 01/05/2022 Staff Ordering Physician: Keerthi Owens DO Manager Applied: Yanet Peres RDCS Attending Provider: Keerthi Owens DO Referring Physician: Dwight Velez ; Exam Type: CA echo doppler color flow Study Info Indications - SOB HX/O CHF Complete two-dimensional, color flow and Doppler transthoracic echocardiogram is performed. Summary 1. Complete two-dimensional, color flow and Doppler transthoracic echocardiogram is performed. 2. Left ventricular chamber dimension is normal. 3. Left ventricular systolic function is normal, estimated at 65-70%. 4. There is mildly increased left ventricular wall thickness. 5. The left ventricular diastolic function is abnormal. 6. E/e' 16 is elevated. 7. Left atrial chamber dimension is moderately enlarged. 8. There is moderate aortic valve sclerosis. 9. There is mild mitral valve regurgitation. 10. There is mild tricuspid valve regurgitation. 11. No pulmonary hypertension, estimated pulmonary arterial systolic pressure is 32 mmHg. Left Ventricle E/e' 16 is elevated. Left ventricular chamber dimension is normal. Left ventricular systolic function is normal, estimated at 65-70%. There is mildly increased left ventricular wall thickness. The left ventricular diastolic function is abnormal. Right Ventricle Right ventricular chamber dimension is normal. Right ventricular systolic function is normal. Left Atria Left atrial chamber dimension is moderately enlarged. Right Atria Right atrial chamber dimension is normal. Aortic Valve The aortic valve is trileaflet. There is moderate aortic valve sclerosis. There is no aortic valve stenosis. There is no aortic valve regurgitation. Pulmonic Valve There is no pulmonic regurgitation. Mitral Valve There is no mitral valve stenosis. There is mild mitral valve regurgitation. Tricuspid Valve There is mild tricuspid valve regurgitation. No pulmonary hypertension, estimated pulmonary arterial systolic pressure is 32 mmHg. Pericardium/Pleural There is no pericardial effusion. Inferior Vena Cava Normal inferior vena cava with >50% collapse upon inspiration consistent with normal right atrial pressure, 5 mmHg. Aorta The aortic root size at the sinus of Valsalva is normal. Left Ventricular Outflow Tract Name Value Normal LVOT 2D LVOT Diameter 2.0 cm LVOT Doppler LVOT Peak Gradient 8 mmHg LVOT Mean Gradient 4 mmHg LVOT VTI 30 cm LVOT VTI/AV VTI Ratio 0.7 LVOT Stroke Volume 91 ml LVOT CO 17.5 l/min LVOT CI 9.8 l/min/m2 Pulmonic Valve
[2022-01-06 06:30] LABS: Anion Gap 5 mmol/L (8-16); Blood Urea Nitrogen 45 mg/dL (7-17); Calcium 8.5 mg/dL (8.4-10.2); Carbon Dioxide 30 mmol/L (22-30); Chloride 102 mmol/L (98-107); Estimated CRCL calculation 28 ml/min; Estimated Glomerular Filt Rate 39; Glucose 161 mg/dL (65-110); Magnesium 1.7 mg/dL (1.6-2.3); Potassium 3.9 mmol/L (3.4-5.0); Sodium 137 mmol/L (137-145)
[2022-01-06 07:02] LABS: Hemoglobin A1C 7.7 % (<5.7)
[2022-01-06 07:25] LABS: Folic Acid 14.8 ng/mL (2.76->20)
[2022-01-06 08:04] LABS: Glucose Point of Care 164 mg/dl (65-105)
[2022-01-06] MEDS: METOPROLOL TARTRATE 25 MG TABLET PO ×3 (08:57→16:30)
[2022-01-06] MEDS: MAGNESIUM OXIDE 400 MG TABLET PO (08:57)
[2022-01-06] MEDS: FUROSEMIDE 40 MG TABLET PO (08:58)
[2022-01-06] MEDS: FERROUS SULFATE 324 MG TABLET PO ×2 (08:58→16:30)
[2022-01-06] MEDS: PARoxetine 20 MG TABLET 40 MG PO (08:58)
[2022-01-06] MEDS: ASPIRIN 81 MG CHEWABLE TABLET PO (08:59)
[2022-01-06] MEDS: EZETIMIBE 10 MG TABLET PO (08:59)
--- NOTE | 2022-01-06 09:34 | WPDNEURCNPN ---
Assessment and Plan Assessment and plan (1) TIA (transient ischemic attack): Code(s): G45.9 - Transient cerebral ischemic attack, unspecified Status: Acute Plan abnormal MRI with old infarct in the right occipital lobe but without aneurysm or any significant intracranial arterial stenosis but at the same time 51% stenosis of the proximal right internal carotid artery will benefit from echocardiogram and further evaluation Additional Plan echocardiogram with bubble study Consult date: 01/06/22 Time Seen: 09:15 Reason for consult: complaints of headache with numbness of the left hand tingling sensation of the lip. HPI: Elizabeth Negron is a 86 year old female Admitted to the hospital through the emergency room with the complaints of left-sided headache along with tingling sensation left and right hand and also left-sided facial tingling patient does have ongoing history of 1. Hypertension 2. Congestive heart failure 3. Hyperlipidemia at the time of initial evaluation in the emergency room she gave no history of visual difficulties but did complain of left-sided headache without any radiation to the neck shoulder or chest and also without nausea and vomiting. Patient has been taking multiple medications particularly furosemide 40 mg daily paroxetine 40 mg daily sitagliptin 100 mg daily metoprolol 25 mg daily and amlodipine 5 mg daily and meclizine 12.5 mg 3 times a day on need basis. She does have ongoing history of renal disease stage III, diabetic peripheral neuropathy, Diederich Merle hypertension and type 2 diabetes mellitus, is not a smoker or drinker, he was admitted for the possibility of the stroke to the immediate stroke scale was 0 while in the emergency room there was no change in the neurological status CT of the head was negative CTA documented the right occipital lobe infarct which is chronic in nature and also she was found to have 51% stenosis on internal carotid artery on the right side Review of Systems Review of Systems: All systems reviewed & are unremarkable except as noted in HPI and below PMFSH Past Medical History Medical History Anemia History of blood transfusions. Aortic valve stenosis [id number] aortic valve stenosis on echocardiogram in April 2021 with a valve area of 1.1 to 1.5 centimeter squared. Arthritis Chronic kidney disease, stage 3 Creatinine seems to range between 0.7 and 1.30. Depression Diabetic peripheral neuropathy Diastolic congestive heart failure Echocardiogram on 12/13/2020 showed normal left ventricular size with moderate consent of left ventricular hypertrophy with overall good left ventricular systolic function with an EF measuring 62%. There was hypokinesis of the basal inferoseptal segment as well as grade 1 diastolic dysfunction with moderately enlarged left atrial chamber and atrial septal aneurysm. Diverticulitis Fracture of proximal end of right humerus (07/24/19) Gastroesophageal reflux GI bleed History of rectal polyps Hyperlipidemia Hypertension Severe pulmonary hypertension Noted on echocardiogram April 2021. PASP was 60 5 mmHg. Stenosis of right internal carotid artery 51% stenosis of the proximal right ICA on CTA in December 2021. Type 2 diabetes mellitus Hemoglobin A1c was 6.8% on 12/12/2020. Surgical History Surgical History Fracture of right hip requiring operative repair History of appendectomy History of bilateral cataract extraction History of colon resection History of hysterectomy History of inguinal hernia repair History of rectal polypectomy History of toe surgery Family History Family History Sibling Carcinoma of colon Father Black lung disease Heart disease Hypertension Mother Hypertension Other Diabetes mellitus Family history of arthritis Family history of gout
[2022-01-06] MEDS: INSULIN ASPART (*BKC) 100 UNITS/ML SUB-Q ×2 (11:23→16:32)
[2022-01-06 11:27] LABS: Glucose Point of Care 250 mg/dl (65-105)
[2022-01-06] MEDS: KETOROLAC 15 MG/ML VIAL (*BKC) IV PUSH (15:42)
[2022-01-06] MEDS: diphenhydrAMINE HCl INJ 50 MG/ML VIAL IV PUSH (15:42)
--- NOTE | 2022-01-06 16:14 | PM.IMPN ---
Progress Note: A&P Assessment and Plan (1) Neurological symptoms: Code(s): R29.90 - Unspecified symptoms and signs involving the nervous system Status: Acute Assessment and Plan: Most symptoms resolved, headache remains, will trial Tylenol, Toradol, Benadryl x1 dose, Neurology was consulted but stated there was only an old infarct noted on the MRI of her brain, no acute episode. She was also noted to have a 51% stenosis of the proximal right internal carotid artery and the recommended an echocardiogram with bubble study which has been ordered and is pending. (2) Hypertension: Code(s): I10 - Essential (primary) hypertension Status: Acute Assessment and Plan: Blood pressures were reviewed and they have been stable however patient reports that her blood pressure was 186/92 when taken at [facility] at the onset of these events. I suspect her blood pressure was elevated due to anxiety however she reports being calm at that time. Will continue to trend blood pressures closely and continue her antihypertensives. (3) Chronic kidney disease, stage 3: Code(s): N18.30 - Chronic kidney disease, stage 3 unspecified Status: Acute Assessment and Plan: Creatinine is stable on review of previous labs. (4) Type 2 diabetes mellitus: Code(s): E11.9 - Type 2 diabetes mellitus without complications Status: Acute Assessment and Plan: Continue Januvia. Initiate sliding scale insulin, Accu-Cheks, and hypoglycemic protocol. (5) Stenosis of right internal carotid artery: Code(s): I65.21 - Occlusion and stenosis of right carotid artery Status: Acute Assessment and Plan: Not significant enough for intervention. Can be monitored as an outpatient. Continue changing simvastatin to a higher intensity statin. Subjective Date/time seen: 01/06/22 16:14 Interval history: Patient resting comfortably without any complaints. No events noted overnight. She is eager to go home 1 have a ride until tomorrow. She does states she still has a headache and wants to make sure that there is nothing more serious causing her headache. Exam Narrative: General: Patient resting comfortably in bed, no acute distress HEENT: Atraumatic, normocephalic, mucous membranes moist CV: Regular rate and rhythm, S1, S2, significant systolic murmur noted, no gallops noted Lungs: Clear to auscultation bilaterally, no rales or crackles noted, no wheezes, good air entry Abdomen: Soft, nontender, nondistended Extremities: Normal to inspection, no edema noted Skin: No rashes noted, no lesions or wounds seen Psych: Euthymic, normal affect Neuro: Cranial nerves 2-12 grossly intact, strength 5/5 upper and lower extremities noted Objective Data Vital Signs Vital Signs: Vital Signs - 24 hr 01/05/22 17:30 01/05/22 16:30 01/05/22 18:30 Temperature 97.4 F L 97.4 F L Pulse Rate 66 70 64 Respiratory Rate 16 16 16 Blood Pressure 141/70 H 133/74 128/70 Pulse Oximetry 97 99 98 Oxygen Delivery 01/05/22 19:37 01/05/22 19:58 01/05/22 20:05 Temperature 97.6 F 97.3 F L 97 F L Pulse Rate 64 60 Respiratory Rate 16 18 Blood Pressure 124/68 151/60 H Pulse Oximetry 97 97 Oxygen Delivery 01/05/22 23:10 01/06/22 00:00 01/06/22 04:00 Temperature Pulse Rate 62 57 L 60 Respiratory Rate Blood Pressure Pulse Oximetry Oxygen Delivery 01/05/22 22:30 01/06/22 06:00 01/06/22 08:57 Temperature 98.5 F Pulse Rate 86 68 Respiratory Rate 18 Blood Pressure 109/50 L Pulse Oximetry 94 Oxygen Delivery Room Air 01/06/22 08:00 01/06/22 12:06 01/06/22 12:00 Temperature Pulse Rate 64 68 72 Respiratory Rate Blood Pressure Pulse Oximetry Oxygen Delivery 01/06/22 13:10 Temperature 97.8 F Pulse Rate 68 Respiratory Rate 18 Blood Pressure 138/71 Pulse Oximetry 99 Oxygen Delivery Intake/Output Intake/Output: Int
[2022-01-06 16:20] LABS: Glucose Point of Care 211 mg/dl (65-105)
[2022-01-06] MEDS: SIMVASTATIN 20 MG TABLET 40 MG PO (17:32)
[2022-01-06] MEDS: traZODone HCL 50 MG TABLET PO (20:06)
[2022-01-06] MEDS: MONTELUKAST SODIUM 10 MG TABLET PO (20:06)
[2022-01-06 21:38] LABS: Glucose Point of Care 148 mg/dl (65-105)
[2022-01-07] VITALS: PULSE 64
[2022-01-07 04:00] VITALS: PULSE 56
[2022-01-07 06:00] VITALS: BP 125/55; PULSE 63; RESP 16; TEMP 36.2; O2SAT 99
[2022-01-07 08:00] VITALS: PULSE 70
[2022-01-07 08:37] VITALS: PULSE 63
[2022-01-07] MEDS: MAGNESIUM OXIDE 400 MG TABLET PO (08:37)
[2022-01-07] MEDS: METOPROLOL TARTRATE 25 MG TABLET PO (08:37)
[2022-01-07] MEDS: MECLIZINE HCL 12.5 MG TABLET PO (08:37)
[2022-01-07] MEDS: PARoxetine 20 MG TABLET 40 MG PO (08:37)
[2022-01-07] MEDS: FUROSEMIDE 40 MG TABLET PO (08:38)
[2022-01-07] MEDS: FERROUS SULFATE 324 MG TABLET PO (08:38)
[2022-01-07] MEDS: ASPIRIN 81 MG CHEWABLE TABLET PO (08:38)
[2022-01-07] MEDS: EZETIMIBE 10 MG TABLET PO (08:38)
[2022-01-07] MEDS: FLUTICASONE PROPIONATE 0.05% NA SPR 16 GM BTL (*BKC) 1 SPRAY NASAL (08:39)
[2022-01-07] MEDS: diphenhydrAMINE HCl INJ 50 MG/ML VIAL 25 MG IV PUSH (10:35)
[2022-01-07] MEDS: KETOROLAC 30 MG/ML VIAL (*BKC) IV PUSH (10:37)
[2022-01-07 11:05] LABS: Glucose Point of Care 167 mg/dl (65-105)
[2022-01-07 11:40] LABS: Glucose Point of Care 155 mg/dl (65-105)
--- NOTE | 2022-01-07 11:58 | PM.DS ---
DS: Admitting Diagnosis Discharge Date January 07, 2022 Admitting Diagnosis Atypical headache DS: Discharge Diagnosis Discharge Diagnosis (1) Neurological symptoms: Code(s): R29.90 - Unspecified symptoms and signs involving the nervous system Status: Acute Assessment and Plan: Most symptoms resolved, headache remains, will trial Tylenol, Toradol, Benadryl x1 dose, Neurology was consulted but stated there was only an old infarct noted on the MRI of her brain, no acute episode. She was also noted to have a 51% stenosis of the proximal right internal carotid artery and the recommended an echocardiogram with bubble study which has been ordered and is pending. 01/07/2022: Headache essentially resolved, will give another dose of Tylenol, Toradol and Benadryl prior to discharge, suspected etiology is migraines and would recommend outpatient management with her PCP to discuss abortive versus prophylactic treatment options (2) Hypertension: Code(s): I10 - Essential (primary) hypertension Status: Acute Assessment and Plan: Blood pressures were reviewed and they have been stable however patient reports that her blood pressure was 186/92 when taken at [facility] at the onset of these events. I suspect her blood pressure was elevated due to anxiety however she reports being calm at that time. Will continue to trend blood pressures closely and continue her antihypertensives. (3) Chronic kidney disease, stage 3: Code(s): N18.30 - Chronic kidney disease, stage 3 unspecified Status: Acute Assessment and Plan: Creatinine is stable on review of previous labs. (4) Type 2 diabetes mellitus: Code(s): E11.9 - Type 2 diabetes mellitus without complications Status: Acute Assessment and Plan: Continue Januvia. Initiate sliding scale insulin, Accu-Cheks, and hypoglycemic protocol. (5) Stenosis of right internal carotid artery: Code(s): I65.21 - Occlusion and stenosis of right carotid artery Status: Acute Assessment and Plan: Not significant enough for intervention. Can be monitored as an outpatient. Continue changing simvastatin to a higher intensity statin. DS: Summary Hospital Course Reason for hospitalization: Atypical headaches with paresthesias and visual disturbances Hospital Course: 86-year-old female with past medical history significant for hypertension, hyperlipidemia, diabetes, CKD and diastolic heart failure presented to the ER with headache and associated left hand numbness and tingling in visual disturbances. She states she has had these headache symptoms on and off for years. This 1 seems to be little worse than her previous symptoms. She also had elevated blood pressure in the 180s over 90s and states this is unusual for her. She was admitted with stroke workup and Neurology consultation. Her workup was essentially benign with a 51% stenosis of the right internal carotid artery being the only acute finding. Echo did show an EF of 65-70% with diastolic dysfunction noted and some LVH with moderate aortic stenosis. MRI did show an old infarct of the right occipital lobe but no acute changes. Her symptoms improved with the administration of Tylenol, Toradol and Benadryl. She was thought to have a complex migraine and discharged in good condition with close outpatient management of her migraines with her PCP. Status at Discharge Functional status at discharge: independent ambulation Overall status at discharge: patient is back to baseline Time Spent with Patient Time attestation: Total time spent providing and/or coordinating discharge services: Time spent: Greater than 30 minutes Exam Narrative: General: Patient resting comfortably in bed, no acute distress HEENT: Atraumatic, normocephalic, mucous membranes moist CV: Regular rate and rhythm, S1, S2, significant systolic murmur noted, no gallops noted Lungs: Clear to auscultat
[2022-01-07 12:00] VITALS: PULSE 70
--- NOTE | 2022-01-07 12:17 | WPDNEUROPN ---
Subjective Date/time seen: 01/07/22 12:17 Interval history: 1 TIA 2 old right occipital lobe infarct 3 51% stenosis of the proximal right internal carotid artery treatment continue aspirin 81 mg daily along with the antihypertensive medication and anti diabetic medication. Patient is already lifelong nonsmoker but does have underlying diabetes for which she is being treated Objective Data Vital Signs Vital Signs: Vital Signs - 24 hr 01/06/22 13:10 01/06/22 16:30 01/06/22 16:00 Temperature 36.6 C Pulse Rate 68 71 68 Respiratory Rate 18 Blood Pressure 138/71 Pulse Oximetry 99 Oxygen Delivery 01/06/22 21:58 01/06/22 20:00 01/06/22 20:00 Temperature 36.1 C L Pulse Rate 62 64 62 Respiratory Rate 18 18 Blood Pressure 142/82 H Pulse Oximetry 95 95 Oxygen Delivery Room Air 01/07/22 00:00 01/07/22 04:00 01/07/22 06:00 Temperature 36.2 C L Pulse Rate 64 56 L 63 Respiratory Rate 16 Blood Pressure 125/55 L Pulse Oximetry 99 Oxygen Delivery 01/07/22 08:37 01/07/22 08:00 Temperature Pulse Rate 63 70 Respiratory Rate Blood Pressure Pulse Oximetry Oxygen Delivery Intake/Output Intake/Output: Intake & Output 01/04/22 01/05/22 01/06/22 01/07/22 23:59 23:59 23:59 23:59 Intake Total 1900 600 Output Total 800 250 Balance 1100 350 Meds/Results Medications: Active Medications Generic Name Dose Route Start Last Admin Trade Name Freq PRN Reason Stop Dose Admin Acetaminophen 650 mg 01/05/22 17:47 Acetaminophen 325 Mg Tablet PO Q4H PRN Mild Pain (1-3) or Fever Amlodipine Besylate 5 mg 01/06/22 09:00 01/07/22 08:43 Amlodipine Besylate 5 Mg Tablet PO Not Given DAILY MELANIE Aspirin 81 mg 01/06/22 08:00 01/07/22 08:38 Aspirin 81 Mg Chewable Tablet PO 81 mg DAILY@0800 [facility] Administration Dextrose 12.5 gm 01/05/22 22:31 Dextrose 50% 25 Gm/50 Ml Syringe IV PUSH PRN PRN Hypoglycemia Protocol Ezetimibe 10 mg 01/06/22 09:00 01/07/22 08:38 Ezetimibe 10 Mg Tablet PO 10 mg DAILY MELANIE Administration Ferrous Sulfate 324 mg 01/06/22 08:00 01/07/22 08:38 Ferrous Sulfate 324 Mg Tablet PO 324 mg BIDWM MELANIE Administration Fluticasone Propionate 1 spray 01/05/22 22:33 01/07/22 08:39 Fluticasone Propionate 0.05% Na Spr 16 Gm Btl (*Bkc) NASAL 1 spray BID PRN Administration Congestion Furosemide 40 mg 01/06/22 09:00 01/07/22 08:38 Furosemide 40 Mg Tablet PO 40 mg DAILY MELANIE Administration Glucagon 1 mg 01/05/22 22:31 Glucagon For Inj 1 Mg Vial IM PRN PRN Hypoglycemia Protocol Glucose 15 gm 01/05/22 22:31 Glucose Oral Gel 15 Gm Of Glucse In 37.5 Gm Tube PO PRN PRN Hypoglycemia Protocol Dextrose 1,000 mls @ 100 mls/hr 01/05/22 22:31 Dextrose 5% 1,000 Ml IVPB PRN PRN Hypoglycemia Protocol Insulin Aspart 2 - 5 units 01/06/22 08:00 01/07/22 11:45 Insulin Aspart (*Bkc) 100 Units/Ml SUB-Q Not Given TIDWM MELANIE Protocol Magnesium Oxide 400 mg 01/06/22 09:00 01/07/22 08:37 Magnesium Oxide 400 Mg Tablet PO 400 mg QAM MELANIE Administration Meclizine HCl 12.5 mg 01/05/22 22:33 01/07/22 08:37 Meclizine Hcl 12.5 Mg Tablet PO 12.5 mg TID PRN Administration Dizziness Metoprolol Tartrate 25 mg 01/05/22 22:45 01/07/22 08:37 Metoprolol Tartrate 25 Mg Tablet PO 25 mg TID MELANIE Administration Montelukast Sodium 10 mg 01/05/22 22:45 01/06/22 20:06 Montelukast Sodium 10 Mg Tablet PO 10 mg HS MELANIE Administration Ondansetron HCl 4 mg 01/05/22 17:47 Ondansetron Inj 4 Mg/2 Ml Vial IV PUSH Q4H PRN Nausea Paroxetine HCl 40 mg 01/06/22 09:00 01/07/22 08:37 Paroxetine 20 Mg Tablet PO 40 mg DAILY MELANIE Administration Perflutren Lipid Microsphere 0 ml 01/06/22 15:13 Perflutren Lipid Microspheres 1.5 Ml Vial Diluted To 10 Ml Total Volume IV PU
== END 2022-01-07 13:10 | disposition home or self-care (01) ==
LOC: ANHED 18:26 → ANH3MEDSUR 18:39
PROVIDERS: Physician Assistant; Admitting Provider Family Medicine; Emergency Provider Emergency Medicine; PCP Family Medicine; Visit Provider Student in an Organized Health Care Education/Training Program
DX: R51.9 Headache, unspecified (principal); R20.0 Anesthesia of skin; I50.30 Unspecified diastolic (congestive) heart failure; N18.30 Chronic kidney disease, stage 3 unspecified; E11.22 Type 2 diabetes mellitus with diabetic chronic kidney disease; I13.0 Hypertensive heart and chronic kidney disease with heart failure and stage 1 through stage 4 chronic kidney disease, or unspecified chronic kidney disease; E11.42 Type 2 diabetes mellitus with diabetic polyneuropathy; E78.5 Hyperlipidemia, unspecified; K21.9 Gastro-esophageal reflux disease without esophagitis; I65.21 Occlusion and stenosis of right carotid artery; Z86.73 Personal history of transient ischemic attack (TIA), and cerebral infarction without residual deficits; Z79.82 Long term (current) use of aspirin; Z20.822 Contact with and (suspected) exposure to COVID-19
CPT/HCPCS: 36415; 70450; 70496; 70498; 70551; 71045; 80048; 80053; 82607; 82746; 82948; 83036; 83735; 84443; 84484; 85025; 85610; 85730; 93005; 93306; 96365; 96375; 96376; 99285; A9270; C9803; G0378; J0131; J1200; J1815; J1885; Q9967; U0003; U0005

== ENCOUNTER 2022-01-12 15:45 | Outpatient (CLI) | payer MEDICARE, SELFPAY ==
--- NOTE | ~2022-01-12 | XR_ITS ---
EXAM: XR foot LT min 3V DATE: 01/12/2022 16:06 HISTORY: LT 2ND TOE ULCER,PREVIOUS SURGERY 10+ YRS AGO . COMPARISON: None available. FINDINGS: Decreased mineralization. Severe first MTP erosion. Moderate erosion/middle phalange lucen cy in the second digit, incompletely evaluated due to positioning. Moderate degenerative changes in t he tibiotalar joint, and foot joints, with plantar enthesopathy. Vascular calcification. Unchanged fo reign body along the third metatarsal. IMPRESSION: End-stage changes in the first MTP, may be posttraumatic or related to inflammatory or cr ystal arthropathy, infection is not excluded. Similar, but less severe and less well visualized mcnamara es in the second toe, recommend dedicated toe radiographs. Reviewed, dictated and finalized at location K. IMPRESSION: End-stage changes in the first MTP, may be posttraumatic or related to inflammatory or crystal arthropathy, infection is not excluded. Similar, bu t less severe and less well visualized changes in the second toe, recommend ded icated toe radiographs.
[2022-01-12 16:43] LABS: White Blood Count 6.9 K/mm3 (4.5-10.0)
== END 2022-01-12 15:46 | disposition home or self-care (01) ==
PROVIDERS: PCP Family Medicine; Visit Provider Specialist
DX: L97.529 Non-pressure chronic ulcer of other part of left foot with unspecified severity (principal)
CPT/HCPCS: 36415; 73630; 85048

== ENCOUNTER 2022-02-09 13:14 | Emergency (ER) | payer MEDICARE, SELFPAY ==
--- NOTE | ~2022-02-09 | CT_ITS ---
EXAMINATION: CT brain wo con DATE: 02/09/2022 15:15 INDICATION: Confusion. TECHNIQUE: Computed tomography (CT) of the head was performed without intravenous contrast. The mA wa s adjusted according to patient size. Iterative reconstruction technique was employed. The dose-lengt h product was 605.33 mGy-cm. COMPARISON: Head CT 01/05/22 FINDINGS: There is an old infarct in right occipital lobe. There are scattered areas of low attenuati on in the cerebral white matter. There is no intracranial hemorrhage, acute infarction, or abnormal i ntracranial mass lesion. The ventricles are normal in size. There are likely changes of ocular lens r eplacement surgeries. There is mild mucosal thickening in the paranasal sinuses. The mastoid air cell s are normal. IMPRESSION: 1. 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 2. Stable moderate nonspecific cerebral white matter disease, which likely represents chronic small v essel ischemic disease. Reviewed, dictated and finalized at location A. IMPRESSION: 1. 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 2. Stable moderate nonspecific cerebral white matter disease, which likely repr esents chronic small vessel ischemic disease.
--- NOTE | ~2022-02-09 | XR_ITS ---
XR wrist RT min 3V DATE: 02/09/2022 15:21 INDICATION: Pain and swelling TECHNIQUE: 4 views COMPARISON: None FINDINGS: There is diffuse osteopenia. There is chondrocalcinosis at the triangular cartilage and carpal joints. Osteoarthritic change at the first carpometacarpal and triscaphe joints. No fracture or dislocation, periosteal reaction or bone destruction is detected. IMPRESSION: Osteopenia Chondrocalcinosis Osteoarthritis at first carpometacarpal joint and triscaphe joint Reviewed, dictated and finalized at location A.
[2022-02-09 13:19] VITALS: BP 116/57; PULSE 77; RESP 16; TEMP 36.8; O2SAT 98
--- NOTE | 2022-02-09 15:30 | ED.GENADULT ---
HPI - General Adult General Chief complaint: Urogenital-Female Stated complaint: UTI Time Seen by Provider: 02/09/22 14:46 Source: patient, family (son), RN notes reviewed and old records reviewed Limitations: dementia History of Present Illness HPI narrative: This is an 86 year old female who presents from nursing facility for evaluation of confusion and right wrist pain. Patient's son states he received a call that patient seemed confused to nurse taking care of her this morning. He states he was told she could not remember what day it was. He states she is at her baseline to him. He is also concerned that patient has right wrist swelling and pain. PAtient does not remember fall. Patient complains of headache and this is chronic complaint. She takes tylenol and benadryl every day for her headache. She denies nausea , vomiting, cough, abdominal pain, chest pain or sob. They are concerned she may have UTI. Onset (ago): hour(s) Associated symptoms: confusion Related Data Home Medications Medication Instructions Recorded Confirmed ezetimibe 10 mg tablet 10 mg PO DAILY 07/24/19 01/05/22 fluticasone propionate 50 1 spray intranasal BID PRN 07/24/19 01/05/22 mcg/actuation nasal Congestion spray,suspension furosemide 40 mg tablet 40 mg PO DAILY 07/24/19 01/05/22 montelukast 10 mg tablet 10 mg PO HS 07/24/19 01/05/22 paroxetine HCl 40 mg tablet 40 mg PO DAILY 07/24/19 01/05/22 sitagliptin 100 mg tablet (Januvia) 100 mg PO DAILY 07/24/19 01/05/22 meclizine 12.5 mg tablet 12.5 mg PO TID PRN Dizziness 12/12/20 01/05/22 metoprolol tartrate 25 mg tablet 25 mg PO TID 12/12/20 01/05/22 simvastatin 40 mg tablet 40 mg PO QPM 12/12/20 01/05/22 ferrous sulfate 325 mg (65 mg 325 mg PO BID 04/05/21 01/05/22 iron) tablet Allergies Allergy/AdvReac Type Severity Reaction Status Date / Time influenza A (H1N1) virus Allergy Unknown Swelling Verified 04/29/21 19:33 vaccine m-jong-split 2008 of Lip/Tongue/Throat Influenza Virus Vaccines Allergy Unknown Swelling Verified 09/29/21 19:33 of Lip/Tongue/Throat phenobarbital AdvReac Mild Hallucinati Verified 04/29/21 19:33 ng Review of Systems Review of Systems: All systems reviewed & are unremarkable except as noted in HPI and below Constitutional: Constitutional: Denies chills, Denies fatigue and Denies fever(s) Eyes: Eyes: Denies change in vision ENT: Denies sore throat Cardiovascular: Cardiovascular: Denies chest pain Respiratory: Respiratory: Denies chest congestion and Denies cough Gastrointestinal: Gastrointestinal: Denies abdominal pain, Denies nausea and Denies vomiting Neurologic: Denies syncope and Reports headache(s) [facility] Past Medical History Medical History Anemia History of blood transfusions. Aortic valve stenosis [id number] aortic valve stenosis on echocardiogram in April 2021 with a valve area of 1.1 to 1.5 centimeter squared. Arthritis Chronic kidney disease, stage 3 Creatinine seems to range between 0.7 and 1.30. Depression Diabetic peripheral neuropathy Diastolic congestive heart failure Echocardiogram on 12/13/2020 showed normal left ventricular size with moderate consent of left ventricular hypertrophy with overall good left ventricular systolic function with an EF measuring 62%. There was hypokinesis of the basal inferoseptal segment as well as grade 1 diastolic dysfunction with moderately enlarged left atrial chamber and atrial septal aneurysm. Diverticulitis Fracture of proximal end of right humerus (07/24/19) Gastroesophageal reflux GI bleed History of rectal polyps Hyperlipidemia Hypertension Severe pulmonary hypertension Noted on echocardiogram April 2021. PASP was 60 5 mmHg. Stenosis of right internal carotid artery 51% stenosis of the proximal right ICA on CTA in December 2021. Type 2 diabetes mellitus Hemoglobin A1c was 6.8% on 12/12/2020.
[2022-02-09 15:57] LABS: Basophils Percent Auto 0.4 % (0.2-1.2); Eosinophils Absolute Auto 0.1 K/mm3 (0-0.3); Eosinophils Percent Auto 0.6 % (0-4.4); Hematocrit 33.3 % (37.0-47.0); Hemoglobin 10.7 g/dL (12.0-15.0); Immature Granulocyte Absolute 0.03 K/mm3 (0.00-0.031); Immature Granulocyte Percent A 0.4 % (0-0.5); Lymphocytes Absolute Auto 1.53 K/mm3 (0.9-3.2); Lymphocytes Percent Auto 19.6 % (18.3-44.2); Mean Corpuscular HGB Conc 32.1 g/dl (32-36); Mean Corpuscular Hemoglobin 31.2 pg (26-34); Mean Corpuscular Volume 97.1 fl (80-100); Mean Platelet Volume 8.9 fl (7.4-10.4); Monocytes Absolute Auto 0.5 K/mm3 (0.1-0.6); Monocytes Percent Auto 6.3 % (2.6-8.5); Neutrophils Absolute Auto 5.7 K/mm3 (1.3-6.7); Neutrophils Percent Auto 72.7 % (45.5-73.1); Platelet Count Result 165 k/mm3 (150-375); Red Blood Count 3.43 M/mm3 (4.2-5.4); Red Cell Distribution Width 13.9 % (11.5-14.5); White Blood Count 7.8 K/mm3 (4.5-10.0)
[2022-02-09 15:58] LABS: Appearance Urine Slightly Cloudy (Clear); Bilirubin Urine Negative (Negative); Color Urine Yellow (Yellow); Glucose Urine UA Trace mg/dL (Negative); Ketones Urine Negative (Negative); Leukocyte Esterase Ur 2+ LEU/UL (Negative); Nitrate Urine Negative (Negative); Protein Urine 2+ mg/dL (Negative); Specific Grav Ur 1.015 (1.001-1.035); Urobilinogen Urine 0.2 mg/dL (<2.0)
[2022-02-09 16:09] LABS: Add Urine Microscopic? YES; Bacteria Urine 3+ /hpf; Blood Urine Trace-Intact (Negative); Mucus Urine Few /lpf; RBC Urine 0-2 /hpf (0-2); Squamous Epithelial Cell Urine Rare /hpf (Few); WBC Urine >75 /hpf
[2022-02-09 16:09] LABS: Alanine Aminotransferase 16 U/L (6-35); Albumin Level 4.3 g/dL (3.5-5.1); Alkaline Phosphatase 61 U/L (38-126); Anion Gap 6 mmol/L (8-16); Aspartate Amino Transferase 27 U/L (14-36); Bilirubin,Total 0.3 mg/dL (0.2-1.3); Blood Urea Nitrogen 45 mg/dL (7-17); Calcium 8.7 mg/dL (8.4-10.2); Carbon Dioxide 29 mmol/L (22-30); Chloride 98 mmol/L (98-107); Estimated CRCL calculation 30 ml/min; Estimated Glomerular Filt Rate 43; Glucose 250 mg/dL (65-110); Potassium 3.9 mmol/L (3.4-5.0); Sodium 133 mmol/L (137-145)
[2022-02-09] MEDS: ACETAMINOPHEN 500 MG TABLET 1000 MG PO (16:45)
[2022-02-09] MEDS: NITROFURANTOIN MONOHYD MACROCR 100 MG CAP PO (16:49)
[2022-02-09 17:39] VITALS: BP 146/68; PULSE 66; RESP 24; O2SAT 99
== END 2022-02-09 17:40 ==
PROVIDERS: Emergency Medicine; Emergency Provider General Practice; PCP Family Medicine
DX: N30.90 Cystitis, unspecified without hematuria (principal); M25.531 Pain in right wrist; D64.9 Anemia, unspecified; M19.90 Unspecified osteoarthritis, unspecified site; I13.0 Hypertensive heart and chronic kidney disease with heart failure and stage 1 through stage 4 chronic kidney disease, or unspecified chronic kidney disease; E11.22 Type 2 diabetes mellitus with diabetic chronic kidney disease; N18.30 Chronic kidney disease, stage 3 unspecified; I50.30 Unspecified diastolic (congestive) heart failure
CPT/HCPCS: 36415; 70450; 73110; 80053; 81001; 85025; 87077; 87086; 87088; 87186; 99284; A9270

== ENCOUNTER 2022-02-24 09:52 | Outpatient (CLI) | payer MEDICARE, SELFPAY ==
--- NOTE | ~2022-02-24 | NM_ITS ---
EXAMINATION: NM bone 3 phase DATE: 02/24/2022 13:41 INDICATION: Osteomyelitis TECHNIQUE: 24.2 mCi Tc-99m HDP by intravenous route. Scintigrams of the bilateral feet and ankles we re obtained in angiographic, blood pool, and delayed phases. COMPARISON: Left foot radiographs dated 01/12/2022 and bilateral foot radiographs dated 04/29/2021 FINDINGS: There is matched 3 phase uptake at the bilateral first metatarsophalangeal joints and at a couple of left toes, dictated and position most likely the third and fourth toes. Mild isolated delayed uptake at the medial aspect of the left hindfoot. IMPRESSION: 1. Matched 3 phase uptake consistent with inflammatory bone lesions at the bilateral first metatarso phalangeal joints and at the left likely third and fourth toes. There are prominent erosions with ove rhanging edges and thin sclerotic margins at the bilateral first metatarsophalangeal joints, the appe arance of which would favor gout over chronic arthritis and osteomyelitis or other inflammatory arthr itis. Reviewed, dictated and finalized at location A. IMPRESSION: 1. Matched 3 phase uptake consistent with inflammatory bone lesions at the clyde ateral first metatarsophalangeal joints and at the left likely third and fourth toes. There are prominent erosions with overhanging edges and thin sclerotic m argins at the bilateral first metatarsophalangeal joints, the appearance of whi ch would favor gout over chronic arthritis and osteomyelitis or other inflammat ory arthritis.
== END 2022-02-24 09:53 | disposition home or self-care (01) ==
LOC: ANHIMG 09:53
PROVIDERS: PCP Family Medicine; Visit Provider Specialist
DX: L97.529 Non-pressure chronic ulcer of other part of left foot with unspecified severity (principal)
CPT/HCPCS: 78315; A9561

== ENCOUNTER 2022-06-03 11:51 | Emergency (ER) | payer MEDICARE, SELFPAY ==
[2022-06-03] VITALS (11 sets, daily range): BP systolic 137–154; BP diastolic 60–65; PULSE 65–71; RESP 15–23; TEMP 36.5–36.6; O2SAT 94–99
--- NOTE | ~2022-06-03 | XR_ITS ---
EXAMINATION: XR chest 1V portable DATE: 06/03/2022 12:40 INDICATION: Altered mental status TECHNIQUE: frontal view of the chest was obtained. COMPARISON: Chest radiograph dated 01/05/2022 FINDINGS: The lungs are clear with no focal airspace opacities, pulmonary edema, pleural effusion or pneumothor ax. Heart size is normal. Moderate-sized hiatal hernia. Calcified left hilar and mediastinal lymph no cezar consistent with old granulomatous disease. Mild thoracolumbar levocurvature with chronic mild rig ht-sided vertebral body height loss at T10. Moderate thoracic and severe upper lumbar spondylosis. Ol d healed fracture deformity at the right humeral neck. IMPRESSION: 1. No acute cardiopulmonary disease. 2. Moderate-sized hiatal hernia. Reviewed, dictated and finalized at location A.
--- NOTE | ~2022-06-03 | CT_ITS ---
EXAMINATION: CT brain wo con DATE: 06/03/2022 13:04 INDICATION: Altered mental status. TECHNIQUE: Computed tomography (CT) of the head was performed without intravenous contrast. The mA wa s adjusted according to patient size. Iterative reconstruction technique was employed. The dose-lengt h product was 605.33 mGy-cm. COMPARISON: Head CT 02/09/2022 FINDINGS: There is an old infarct in right occipital lobe. There are scattered areas of low attenuati on in the cerebral white matter. There is no intracranial hemorrhage, acute infarction, or abnormal i ntracranial mass lesion. The ventricles are normal in size. There are likely changes of ocular lens r eplacement surgeries. There is mild mucosal thickening in the paranasal sinuses. The mastoid air cell s are normal. IMPRESSION: 1. 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 2. Stable moderate nonspecific cerebral white matter disease, which likely represents chronic small v essel ischemic disease. Reviewed, dictated and finalized at location A. IMPRESSION: 1. 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 2. Stable moderate nonspecific cerebral white matter disease, which likely repr esents chronic small vessel ischemic disease.
--- NOTE | 2022-06-03 11:54 | ECG_ITS ---
Measurements Intervals [place] Rate: 70 P: 73 TX: 191 QRS: 87 QRSD: 138 T: 15 QT: 438 QTc: 475 Interpretive Statements SINUS RHYTHM WITH MARKED SINUS ARRHYTHMIA RIGHT BUNDLE BRANCH BLOCK ABNORMAL ECG COMPARED TO ECG 01/05/2022 13:22:05 SINUS ARRHYTHMIA NOW PRESENT Electronically Signed On 06-03-2022 12:52:17 CDT by Zackery Caldera D.O.
--- NOTE | 2022-06-03 12:03 | ED.AMS ---
HPI - Altered Mental Status General Chief Complaint: Altered Mental Status Stated Complaint: ams; delusional Time Seen by Provider: 06/03/22 12:02 History of Present Illness HPI narrative: Patient is an 86-year-old female with a history of diabetes, hypertension, hyperlipidemia, CHF, CKD presenting with altered mental status. Patient is a resident of a nursing facility and was noted to be possibly hallucinating earlier today. Apparently she saw someone in her room going through her things. EMS was called and found her to possibly be in A. fib. On arrival, patient states that she has felt generally unwell for the last couple of days. States that she has felt generally weak and like she needs help walking with her Rollator. Currently she complains of a mild headache which started this morning. She denies chest pain, shortness of breath, cough, abdominal pain, nausea or vomiting, diarrhea, dysuria, leg swelling. Related Data Home Medications Medication Instructions Recorded Confirmed fluticasone propionate 50 1 spray intranasal BID PRN 07/24/19 05/31/22 mcg/actuation nasal Congestion spray,suspension furosemide 40 mg tablet 40 mg PO DAILY 07/24/19 05/31/22 montelukast 10 mg tablet 10 mg PO HS 07/24/19 05/31/22 sitagliptin phosphate 100 mg 100 mg PO DAILY 07/24/19 05/31/22 tablet (Januvia) metoprolol tartrate 25 mg tablet 25 mg PO TID 12/12/20 05/31/22 simvastatin 40 mg tablet 40 mg PO QPM 12/12/20 05/31/22 ferrous sulfate 325 mg (65 mg 325 mg PO BID 04/05/21 05/31/22 iron) tablet acetaminophen 500 mg capsule 500 mg PO Q6H PRN 04/15/22 05/31/22 calcium carbonate 600 mg calcium 600 mg PO BID 04/15/22 05/31/22 (1,500 mg) tablet hydrocortisone 2.5 % topical cream 1 applic RECTAL DAILY PRN 04/15/22 05/31/22 with perineal applicator (Proctosol HC) omeprazole 20 mg capsule,delayed 20 mg PO DAILY 04/15/22 05/31/22 release sodium hyaluronate (viscosup) 30 30 mg intra-articular WEEKLY 04/15/22 05/31/22 mg/2 mL intra-articular syringe (ORTHOVISC) metformin 500 mg/5 mL oral solution 500 mg PO DAILY 05/24/22 05/31/22 Allergies Allergy/AdvReac Type Severity Reaction Status Date / Time influenza A (H1N1) virus Allergy Unknown Swelling Verified 05/31/22 10:53 vaccine m-jong-split 2009 of Lip/Tongue/Throat Influenza Virus Vaccines Allergy Unknown Swelling Verified 05/31/22 10:53 of Lip/Tongue/Throat phenobarbital AdvReac Mild Hallucinati Verified 05/31/22 10:53 ng Review of Systems Review of Systems: All systems reviewed & are unremarkable except as noted in HPI and below PMFSH Past Medical History Medical History Anemia History of blood transfusions. Aortic valve stenosis Qeky-mf-xcsuwilk aortic valve stenosis on echocardiogram in April 2021 with a valve area of 1.1 to 1.5 centimeter squared. Arthritis Chronic kidney disease, stage 3 Creatinine seems to range between 0.7 and 1.30. Depression Diabetic peripheral neuropathy Diastolic congestive heart failure Echocardiogram on 12/13/2020 showed normal left ventricular size with moderate consent of left ventricular hypertrophy with overall good left ventricular systolic function with an EF measuring 62%. There was hypokinesis of the basal inferoseptal segment as well as grade 1 diastolic dysfunction with moderately enlarged left atrial chamber and atrial septal aneurysm. Diverticulitis Fracture of proximal end of right humerus (07/24/19) Gastroesophageal reflux GI bleed History of rectal polyps Hyperlipidemia Hypertension Primary osteoarthritis of both knees Severe pulmonary hypertension Noted on echocardiogram April 2021. PASP was 60 5 mmHg. Stenosis of right internal carotid artery 51% stenosis of the proximal right ICA on CTA in December 2021. Trigger finger of both hands Type 2 diabetes mellitus Hemoglobin A1c was 6.8% on 12/12/2020. Surgical History Surgical Hi
[2022-06-03 12:25] LABS: Basophils Absolute Auto 0.1 K/mm3 (0.0-0.1); Basophils Percent Auto 0.9 % (0.2-1.2); Eosinophils Absolute Auto 0.4 K/mm3 (0-0.3); Eosinophils Percent Auto 5.6 % (0-4.4); Hematocrit 28.8 % (37.0-47.0); Hemoglobin 9.4 g/dL (12.0-15.0); Immature Granulocyte Absolute 0.04 K/mm3 (0.00-0.031); Immature Granulocyte Percent A 0.5 % (0-0.5); Lymphocytes Absolute Auto 1.19 K/mm3 (0.9-3.2); Lymphocytes Percent Auto 15.4 % (18.3-44.2); Mean Corpuscular HGB Conc 32.6 g/dl (32-36); Mean Corpuscular Hemoglobin 31.4 pg (26-34); Mean Corpuscular Volume 96.3 fl (80-100); Monocytes Absolute Auto 0.4 K/mm3 (0.1-0.6); Monocytes Percent Auto 4.7 % (2.6-8.5); Neutrophils Absolute Auto 5.6 K/mm3 (1.3-6.7); Neutrophils Percent Auto 72.9 % (45.5-73.1); Platelet Count Result 212 k/mm3 (150-375); Red Blood Count 2.99 M/mm3 (4.2-5.4); Red Cell Distribution Width 13.9 % (11.5-14.5); White Blood Count 7.7 K/mm3 (4.5-10.0)
[2022-06-03 12:36] LABS: Alanine Aminotransferase 18 U/L (6-35); Albumin Level 4.5 g/dL (3.5-5.1); Alkaline Phosphatase 57 U/L (38-126); Anion Gap 15 mmol/L (8-16); Aspartate Amino Transferase 34 U/L (14-36); Bilirubin,Total 0.4 mg/dL (0.2-1.3); Blood Urea Nitrogen 66 mg/dL (7-17); Calcium 8.9 mg/dL (8.4-10.2); Carbon Dioxide 24 mmol/L (22-30); Chloride 92 mmol/L (98-107); Estimated Glomerular Filt Rate 27; Glucose 177 mg/dL (65-110); Potassium 4.7 mmol/L (3.4-5.0); Sodium 131 mmol/L (137-145)
[2022-06-03] MEDS: SODIUM CHLORIDE 0.9% IV 1,000 ML 999 ML IV CONT (12:36)
[2022-06-03 12:40] LABS: INR 1.1; Partial Thromboplastin Time 30.1 SECONDS (22.3-36.8)
[2022-06-03 12:46] LABS: Appearance Urine Clear (Clear); Bilirubin Urine Negative (Negative); Blood Urine Negative (Negative); Color Urine Yellow (Yellow); Glucose Urine UA Negative (Negative); Ketones Urine Negative (Negative); Leukocyte Esterase Ur Negative LEU/UL (Negative); Nitrate Urine Negative (Negative); Protein Urine Negative (Negative); Urobilinogen Urine 0.2 mg/dL (<2.0); pH Urine 5.5 (5.0-9.0)
[2022-06-03 12:52] LABS: Troponin I < 0.012 ng/mL (0.000-0.034)
[2022-06-03 12:59] LABS: Add Urine Microscopic? NO
--- NOTE | 2022-06-03 14:52 | PC.NURSE ---
Pt ambulated with assistance of walker and stand by RN assistance. Pt ambulated in hallway and tolerated ambulation well.
== END 2022-06-03 15:51 ==
PROVIDERS: Emergency Medicine; Emergency Provider Emergency Medicine; PCP Family Medicine
DX: E86.0 Dehydration (principal); R53.1 Weakness; E78.5 Hyperlipidemia, unspecified; I13.0 Hypertensive heart and chronic kidney disease with heart failure and stage 1 through stage 4 chronic kidney disease, or unspecified chronic kidney disease; I50.30 Unspecified diastolic (congestive) heart failure; N18.30 Chronic kidney disease, stage 3 unspecified; E11.22 Type 2 diabetes mellitus with diabetic chronic kidney disease
CPT/HCPCS: 36415; 51701; 70450; 71045; 80053; 81003; 84484; 85025; 85610; 85730; 93005; 96361; 96374; 99284; J0131; J7030

== ENCOUNTER 2022-08-11 13:14 | Inpatient (IN) | payer MEDICARE, SELFPAY ==
[2022-08-11] VITALS (8 sets, daily range): BP systolic 119–136; BP diastolic 54–64; PULSE 74–85; RESP 15–26; TEMP 36.3–37.2; O2SAT 97–100; BMI 23.8
--- NOTE | ~2022-08-11 | XR_ITS ---
EXAM: XR foot LT min 3V DATE: 08/11/2022 14:04 HISTORY: wound LT FOOT REDNESS AND SORENESS . COMPARISON: 01/12/2022, 04/29/2021. FINDINGS: Decreased mineralization. No fracture or dislocation. No lytic or blastic lesion. Stable s evere arthritic change in the first MTP joint. No erosion or periosteal change. Soft tissues within n ormal limits. Linear radiopaque foreign body projecting between the second and third metatarsals. IMPRESSION: Unchanged severe first MTP arthropathy, likely on a posttraumatic or inflammatory basis, infection not excluded. Radiopaque foreign body in the midfoot, stable since at least 04/29/2021 possi ble abandoned orthopedic K wire. Reviewed, dictated and finalized at location K. [employer] IMPRESSION: Unchanged severe first MTP arthropathy, likely on a posttraumatic o r inflammatory basis, infection not excluded. Radiopaque foreign body in the mi dfoot, stable since at least 04/29/2021 possible abandoned orthopedic K wire.
--- NOTE | ~2022-08-11 | MR_ITS ---
EXAMINATION: MR foot LT wo con DATE: 08/15/2022 10:05 INDICATION: Necrosis. Assess for abscess or osteomyelitis. TECHNIQUE: Magnetic resonance imaging (MRI) of the left fore/mid foot was performed without intraveno us contrast. Sequences included axial, sagittal and coronal T1-weighted FSE and fluid sensitive FSE S TIR, axial and coronal T2-weighted FS FSE PROPELLER and coronal T1-weighted FSE PROPELLER. COMPARISON: Radiographs dated 08/11/2022 FINDINGS: Second, fourth and fifth claw toes. No fracture. Metallic magnetic field artifact associated with a m etallic wire fragment which situated in the soft tissues between the second and third metatarsal diap hyses. Chronic prominent destructive changes centered at the first metatarsophalangeal joint with large eros ions and replacement of the entire volume of the head of the first metatarsal. There are low signal i ntensity sclerotic margins to the erosions in the spaces filled with T1 hypointense, mildly T2 hyperi ntense material which is clearly distinct from the physiologic amount of more T2 hyperintense fluid. There is also no significant edema in the immediately adjacent subcutaneous fat. Overall constellatio n of findings on both the current imaging on prior radiograph would be most consistent with severe to phaceous gout. There is however abnormal loss of T1 fat signal with corresponding increased T2 signal involving fift h distal phalanx and head of the proximal phalanx. There is soft tissue swelling and edema throughout the fifth toe as well as a 2.1 x 0.8 x 1.5 similar loculated fluid collection dorsal to and potentia lly contiguous with the proximal interphalangeal joint. This appearance is more concerning for absces s, septic arthritis and osteomyelitis. There are additional erosions centered at the third and fourth proximal interphalangeal joints with m ore similar imaging features to the changes at the first interphalangeal joint. There is more promine nt increased T2 signal and loss of T1 signal at the head of the second middle phalanx and involving t he entire second distal phalanx which appears to be related to the point of a few small linear low si gnal intensity cortical fragments. Similarly there is more prominent edema about the distal aspect of the second toe but a discrete fluid collection to suggest abscess. IMPRESSION: 1. Prominent erosions in several phalanges as well as at the head of the first metatarsal. This appea rs chronic at the first metatarsophalangeal joint with imaging features on CT and MRI most consistent with gout, and likely also at the third proximal interphalangeal joint. At the fifth distal interpha langeal joint there is a prominent soft tissue edema and an associated loculated fluid collection whi ch is more suspicious for either infection or secondary superinfection with abscess and osteomyelitis . Appearance at the second distal interphalangeal joint and distal phalanx lies in the spectrum betwe en these 2 appearances, consistent with gout but equivocal for secondary superinfection. Reviewed, dictated and finalized at location A. GATION SYSTEM INSTALLER IMPRESSION: 1. Prominent erosions in several phalanges as well as at the head of the first metatarsal. This appears chronic at the first metatarsophalangeal joint with im aging features on CT and MRI most consistent with gout, and likely also at the third proximal interphalangeal joint. At the fifth distal interphalangeal joint there is a prominent soft tissue edema and an associated loculated fluid colle ction which is more suspicious for either infection or secondary superinfection with abscess and osteomyelitis. Appearance at the second distal interphalangea l joint and distal phalanx lies in the spectrum between these 2 appearances, co nsistent with gout bu
--- NOTE | ~2022-08-11 | XR_ITS ---
EXAMINATION: XR chest 1V portable INDICATION: Cough TECHNIQUE: Portable AP chest at 1400 hours COMPARISON: 06/03/2022 FINDINGS: The lungs are free of acute opacities. No pleural effusion or pneumothorax. There is a mode rate-sized hiatal hernia. The heart size is normal. Calcified left hilar lymph nodes are consistent w ith old granulomatous disease. There is a healed fracture of the proximal right humerus. IMPRESSION: 1. Moderate-sized hiatal hernia. Reviewed, dictated and finalized at location B. E SHOP ATTENDANT
--- NOTE | 2022-08-11 13:24 | ECG_ITS ---
Measurements Intervals [place] Rate: 77 P: 61 TX: 170 QRS: 89 QRSD: 126 T: 22 QT: 407 QTc: 463 Interpretive Statements SINUS RHYTHM WITH SINUS ARRHYTHMIA ATRIAL PREMATURE COMPLEXES RIGHT BUNDLE BRANCH BLOCK BASELINE ARTIFACT- II, III, V5 ABNORMAL ECG COMPARED TO ECG 06/03/2022 12:00:41 NO SIGNIFICANT CHANGES Electronically Signed On 08-11-2022 13:45:17 [employer]ETING [employer]ICATION[employer]GER by Zackery Caldera D.O.
--- NOTE | 2022-08-11 13:34 | ED.GENADULT ---
HPI - General Adult General Chief complaint: Weakness Stated complaint: sick Time Seen by Provider: 08/11/22 13:24 Source: RN notes reviewed History of Present Illness HPI narrative: Patient presents emergency department from [facility] via EMS for weakness. Patient states she has been feeling generally weak for the past 2 days states has been associated with a decreased appetite states that she is also noted that she has been experiencing redness of her left fifth toe with redness going up her foot she denies any trauma or injury but states she does have a wound on that toe she denies any fevers or chills chest pain shortness of breath abdominal pain nausea or vomiting or any other symptoms Related Data Home Medications Medication Instructions Recorded Confirmed fluticasone propionate 50 1 spray intranasal BID PRN 07/24/19 06/09/22 mcg/actuation nasal Congestion spray,suspension furosemide 40 mg tablet 40 mg PO DAILY 07/24/19 06/09/22 montelukast 10 mg tablet 10 mg PO HS 07/24/19 06/09/22 metoprolol tartrate 25 mg tablet 25 mg PO TID 12/12/20 06/09/22 simvastatin 40 mg tablet 40 mg PO QPM 12/12/20 06/09/22 acetaminophen 500 mg capsule 500 mg PO Q6H PRN 04/15/22 06/09/22 calcium carbonate 600 mg calcium 600 mg PO BID 04/15/22 06/09/22 (1,500 mg) tablet hydrocortisone 2.5 % topical cream 1 applic RECTAL DAILY PRN 04/15/22 06/09/22 with perineal applicator (Proctosol HC) omeprazole 20 mg capsule,delayed 20 mg PO DAILY 04/15/22 06/09/22 release Allergies Allergy/AdvReac Type Severity Reaction Status Date / Time influenza A (H1N1) virus Allergy Unknown Swelling Verified 07/01/22 10:47 vaccine m-jong-split 2009 of Lip/Tongue/Throat Influenza Virus Vaccines Allergy Unknown Swelling Verified 07/01/22 10:47 of Lip/Tongue/Throat phenobarbital AdvReac Mild Hallucinati Verified 07/01/22 10:47 ng Review of Systems Review of Systems: Gen.: Denies fevers or chills ENT: Denies congestion Respiratory: Denies shortness of breath or cough CV: Denies chest pain or palpitations GI: Denies abdominal pain nausea, emesis Musculoskeletal: Denies back pain or muscle pain Neuro: Reports weakness Skin: See HPI Except as documented, all other systems reviewed and negative [facility] Past Medical History Medical History Anemia History of blood transfusions. Aortic valve stenosis Jhfu-gu-wghttulo aortic valve stenosis on echocardiogram in April 2021 with a valve area of 1.1 to 1.5 centimeter squared. Arthritis Chronic kidney disease, stage 3 Creatinine seems to range between 0.7 and 1.30. Depression Diabetic peripheral neuropathy Diastolic congestive heart failure Echocardiogram on 12/13/2020 showed normal left ventricular size with moderate consent of left ventricular hypertrophy with overall good left ventricular systolic function with an EF measuring 62%. There was hypokinesis of the basal inferoseptal segment as well as grade 1 diastolic dysfunction with moderately enlarged left atrial chamber and atrial septal aneurysm. Diverticulitis Fracture of proximal end of right humerus (07/24/19) Gastroesophageal reflux GI bleed History of rectal polyps Hyperlipidemia Hypertension Primary osteoarthritis of both knees Severe pulmonary hypertension Noted on echocardiogram April 2021. PASP was 60 5 mmHg. Stenosis of right internal carotid artery 51% stenosis of the proximal right ICA on CTA in December 2021. Trigger finger of both hands Type 2 diabetes mellitus Hemoglobin A1c was 6.8% on 12/12/2020. Surgical History Surgical History Fracture of right hip requiring operative repair History of appendectomy History of bilateral cataract extraction History of colon resection History of hysterectomy History of inguinal hernia repair History of rectal polypectomy History of toe surgery Family History
[2022-08-11] MEDS: SODIUM CHLORIDE 0.9% IV 1,000 ML 999 ML IV CONT (13:40)
[2022-08-11 13:48] LABS: Basophils Percent Auto 0.2 % (0.2-1.2); Eosinophils Absolute Auto 0.1 K/mm3 (0-0.3); Eosinophils Percent Auto 0.4 % (0-4.4); Hematocrit 34.3 % (37.0-47.0); Hemoglobin 11.1 g/dL (12.0-15.0); Immature Granulocyte Absolute 0.08 K/mm3 (0.00-0.031); Immature Granulocyte Percent A 0.6 % (0-0.5); Mean Corpuscular HGB Conc 32.4 g/dl (32-36); Mean Corpuscular Hemoglobin 30.7 pg (26-34); Monocytes Absolute Auto 0.7 K/mm3 (0.1-0.6); Monocytes Percent Auto 5.6 % (2.6-8.5); Neutrophils Absolute Auto 10.8 K/mm3 (1.3-6.7); Neutrophils Percent Auto 83.2 % (45.5-73.1); Platelet Count Result 233 k/mm3 (150-375); Red Blood Count 3.61 M/mm3 (4.2-5.4); Red Cell Distribution Width 11.9 % (11.5-14.5)
[2022-08-11 13:57] LABS: Alanine Aminotransferase 18 U/L (6-35); Albumin Level 4.2 g/dL (3.5-5.1); Alkaline Phosphatase 96 U/L (38-126); Anion Gap 7 mmol/L (8-16); Aspartate Amino Transferase 30 U/L (14-36); Bilirubin,Total 0.4 mg/dL (0.2-1.3); Blood Urea Nitrogen 49 mg/dL (7-17); Carbon Dioxide 32 mmol/L (22-30); Chloride 91 mmol/L (98-107); Estimated CRCL calculation 24 ml/min; Estimated Glomerular Filt Rate 33; Glucose 233 mg/dL (65-110); Magnesium 2.2 mg/dL (1.6-2.3); Potassium 4.7 mmol/L (3.4-5.0); Sodium 130 mmol/L (137-145)
[2022-08-11 13:58] LABS: INR 1.1; Prothrombin Time 13.9 Seconds (11.1-14.7)
[2022-08-11 13:59] LABS: Partial Thromboplastin Time 30.3 SECONDS (22.3-36.8)
[2022-08-11 14:02] LABS: Add Urine Microscopic? YES; Appearance Urine Slightly Cloudy (Clear); Bilirubin Urine Negative (Negative); Blood Urine Negative (Negative); Color Urine Yellow (Yellow); Glucose Urine UA 2+ mg/dL (Negative); Ketones Urine Negative (Negative); Leukocyte Esterase Ur Trace LEU/UL (Negative); Nitrate Urine Negative (Negative); Protein Urine Negative (Negative); Urobilinogen Urine 0.2 mg/dL (<2.0); pH Urine 6.5 (5.0-9.0)
[2022-08-11 14:05] LABS: Bacteria Urine Trace /hpf; Mucus Urine Rare /lpf; RBC Urine 0-2 /hpf (0-2); WBC Urine 21-30 /hpf
[2022-08-11 14:24] LABS: Influenza A QL RT-PCR Negative (Negative); Influenza B QL RT-PCR Negative (Negative); SARS-CoV-2 RNA PCR Negative
--- NOTE | 2022-08-11 15:00 | PM.IMHP ---
H&P: HPI History of Present Illness Date/Time: 08/11/22 15:00 Chief Complaint: Weakness and poor appetite. Narrative: This is a pleasant 86-year-old female with hypertension, dyslipidemia, type 2 diabetes mellitus, chronic kidney disease, and diastolic congestive heart failure who presented to the emergency department from [facility] for evaluation of generalized weakness and poor appetite. She has not been feeling well for several days and couple of days ago she noticed redness, swelling, and pain about the left 5th toe. It has gotten progressively worse and she now has red streaking up the dorsum of the foot. Her appetite has not been good and she has had some nausea but no vomiting. She denies fever, chills, and sweats. She has not had any diarrhea. She does endorse mild dysuria but that is not unusual for her and she takes azo if needed. She denies injury to the toe but she is not certain how she got the wound. No cold or flu symptoms. No sick contacts. No history of MRSA Review of Systems Review of Systems: Twelve systems were reviewed and are negative except for as per HPI. [facility] Past Medical History Medical History Anemia History of blood transfusions. Aortic valve stenosis Ojcr-gv-vmjrekeq aortic valve stenosis on echocardiogram in April 2021 with a valve area of 1.1 to 1.5 centimeter squared. Arthritis Chronic kidney disease, stage 3 Creatinine seems to range between 0.7 and 1.30. Depression Diabetic peripheral neuropathy Diastolic congestive heart failure Echocardiogram on 12/13/2020 showed normal left ventricular size with moderate consent of left ventricular hypertrophy with overall good left ventricular systolic function with an EF measuring 62%. There was hypokinesis of the basal inferoseptal segment as well as grade 1 diastolic dysfunction with moderately enlarged left atrial chamber and atrial septal aneurysm. Diverticulitis Fracture of proximal end of right humerus (07/24/19) Gastroesophageal reflux GI bleed History of rectal polyps Hyperlipidemia Hypertension Primary osteoarthritis of both knees Severe pulmonary hypertension Noted on echocardiogram April 2021. PASP was 60 5 mmHg. Stenosis of right internal carotid artery 51% stenosis of the proximal right ICA on CTA in December 2021. Trigger finger of both hands Type 2 diabetes mellitus Hemoglobin A1c was 6.8% on 12/12/2020. Surgical History Surgical History Fracture of right hip requiring operative repair History of appendectomy History of bilateral cataract extraction History of colon resection History of hysterectomy History of inguinal hernia repair History of rectal polypectomy History of toe surgery Family History Family History Sibling Carcinoma of colon Father Black lung disease Heart disease Hypertension Mother Hypertension Other Diabetes mellitus Family history of arthritis Family history of gout Family history of heart disease in male family member before age 55 Family history of kidney disease Social History Social History (Updated 08/11/22 @ 18:59 by Evie Riddle PA-C) Social History: The patient is and she is currently a resident at [facility]. 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 Lifelong nonsmoker. No alcohol or illicit substance use. She designates her son, Ag Marrero, as her surrogate decision maker and she wishes to be a full code. Smoking status: Never smoker Second hand tobacco smoke exposure: No Alcohol intake: former Drinks per week: 1 Substance use: never Substance use type: does not use Lack of Transportation: No Lack of Food: Never True Current Housing: I Have Housing Concerned About Future Housing: No Difficulty Paying Gas/Electric Bills: No Difficulty Paying
[2022-08-11] MEDS: ACETAMINOPHEN 325 MG TABLET 650 MG PO (17:12)
[2022-08-11] MEDS: SODIUM CHLORIDE 0.9% IV 1,000 ML 80 ML IV CONT (17:59)
[2022-08-11] MEDS: metroNIDAZOLE 500 MG/ISO 100ML 500 MG/100 ML BAG 100 MG IVPB (18:02)
[2022-08-11 21:00] LABS: Hemoglobin A1C 7.7 % (<5.7)
[2022-08-11 21:17] LABS: Glucose Point of Care 306 mg/dl (65-105)
[2022-08-11] MEDS: SIMVASTATIN 20 MG TABLET 40 MG PO (21:28)
[2022-08-11] MEDS: ACETAMINOPHEN 500 MG TABLET PO (21:29)
[2022-08-11] MEDS: traZODone HCL 50 MG TABLET PO (21:31)
[2022-08-11] MEDS: MONTELUKAST SODIUM 10 MG TABLET PO (21:32)
[2022-08-11] MEDS: FERROUS SULFATE 324 MG TABLET PO (21:32)
[2022-08-11] MEDS: MECLIZINE HCL 12.5 MG TABLET PO (21:32)
--- NOTE | 2022-08-12 00:45 | PC.NURSE ---
Patient restless, calling and crying at intervals stating that she thinks she is dying . Patient however is stable with VSS and all other assessments at this time. Patient is easily confused at times and anxious at intervals about being in the hospital and unsure of all cares and reluctantly in participating in treatments as she frequently states, I dont know what you are doing and why I am here . Patient reoriented with great effort. Otherwise patient is stable and unchanged.
[2022-08-12] MEDS: metroNIDAZOLE 500 MG/ISO 100ML 500 MG/100 ML BAG 100 MG IVPB ×3 (03:10→17:17)
[2022-08-12 05:48] VITALS: BP 130/62; PULSE 68; RESP 16; TEMP 36.4; O2SAT 98
[2022-08-12 06:17] LABS: Basophils Percent Auto 0.5 % (0.2-1.2); Eosinophils Absolute Auto 0.1 K/mm3 (0-0.3); Eosinophils Percent Auto 1.3 % (0-4.4); Hematocrit 29.9 % (37.0-47.0); Hemoglobin 9.7 g/dL (12.0-15.0); Immature Granulocyte Absolute 0.05 K/mm3 (0.00-0.031); Immature Granulocyte Percent A 0.8 % (0-0.5); Lymphocytes Absolute Auto 0.83 K/mm3 (0.9-3.2); Lymphocytes Percent Auto 13.6 % (18.3-44.2); Mean Corpuscular HGB Conc 32.4 g/dl (32-36); Mean Corpuscular Hemoglobin 30.2 pg (26-34); Mean Corpuscular Volume 93.1 fl (80-100); Mean Platelet Volume 8.6 fl (7.4-10.4); Monocytes Absolute Auto 0.4 K/mm3 (0.1-0.6); Monocytes Percent Auto 6.5 % (2.6-8.5); Neutrophils Absolute Auto 4.7 K/mm3 (1.3-6.7); Neutrophils Percent Auto 77.3 % (45.5-73.1); Platelet Count Result 180 k/mm3 (150-375); Red Blood Count 3.21 M/mm3 (4.2-5.4); Red Cell Distribution Width 11.8 % (11.5-14.5); White Blood Count 6.1 K/mm3 (4.5-10.0)
[2022-08-12 06:35] LABS: Alanine Aminotransferase 15 U/L (6-35); Albumin Level 3.3 g/dL (3.5-5.1); Alkaline Phosphatase 64 U/L (38-126); Anion Gap 4 mmol/L (8-16); Aspartate Amino Transferase 21 U/L (14-36); Bilirubin,Total 0.2 mg/dL (0.2-1.3); Blood Urea Nitrogen 42 mg/dL (7-17); Calcium 8.3 mg/dL (8.4-10.2); Carbon Dioxide 28 mmol/L (22-30); Chloride 101 mmol/L (98-107); Estimated CRCL calculation 26 ml/min; Estimated Glomerular Filt Rate 36; Glucose 187 mg/dL (65-110); Sodium 133 mmol/L (137-145)
[2022-08-12 08:00] LABS: Glucose Point of Care 167 mg/dl (65-105)
[2022-08-12] MEDS: SODIUM CHLORIDE 0.9% IV 1,000 ML 80 ML IV CONT ×2 (08:12→23:37)
[2022-08-12] MEDS: PANTOPRAZOLE 40 MG TABLET PO (08:45)
[2022-08-12] MEDS: PARoxetine 20 MG TABLET 40 MG PO (08:45)
[2022-08-12] MEDS: EZETIMIBE 10 MG TABLET PO (08:45)
[2022-08-12] MEDS: FUROSEMIDE 40 MG TABLET PO (08:45)
[2022-08-12] MEDS: MECLIZINE HCL 12.5 MG TABLET PO ×2 (08:45→21:18)
[2022-08-12] MEDS: EMPAGLIFLOZIN 10 MG TABLET PO (08:46)
[2022-08-12] MEDS: CALCIUM CARBONATE (OSCAL) 500 MG TABLET 600 MG PO ×2 (08:46→17:16)
[2022-08-12] MEDS: MAGNESIUM OXIDE 400 MG TABLET PO (08:46)
[2022-08-12] MEDS: ASPIRIN 81 MG ENTERIC TABLET PO (08:46)
[2022-08-12] MEDS: ENOXAPARIN 30 MG/0.3 ML SYRINGE SUB-Q (08:47)
[2022-08-12 08:57] LABS: Free T4 Free Thyroxine Reflex 1.53 ng/dL (0.78-2.19)
--- NOTE | 2022-08-12 10:50 | PM.IMPN ---
Progress Note: A&P Assessment and Plan (1) Cellulitis of fifth toe, left: Code(s): L03.032 - Cellulitis of left toe Status: Acute (2) Cellulitis of left foot: Code(s): L03.116 - Cellulitis of left lower limb Status: Acute (3) Diabetic foot infection: Code(s): E11.628 - Type 2 diabetes mellitus with other skin complications; L08.9 - Local infection of the skin and subcutaneous tissue, unspecified Status: Acute (4) Abnormal urinalysis: Code(s): R82.90 - Unspecified abnormal findings in urine Status: Acute (5) Chronic kidney disease, stage 3: Code(s): N18.30 - Chronic kidney disease, stage 3 unspecified Status: Acute (6) Mild dehydration: Code(s): E86.0 - Dehydration Status: Acute (7) Type 2 diabetes mellitus: Code(s): E11.9 - Type 2 diabetes mellitus without complications Status: Acute (8) Hypertension: Code(s): I10 - Essential (primary) hypertension Status: Acute Plan The patient presented to the ED for evaluation of generalized weakness and lack of appetite for several days. She has also noticed increasing redness and swelling about the left 5th toe with exam findings consistent with cellulitis and lymphangitic streaking up the dorsum of the foot. There is a small open wound noted on the toe as well without active drainage. She has been started on cefepime, metronidazole, and vancomycin per antibiotic stewardship recommendations. Analgesics available as needed. She was supposed to see her memorial marker designer for evaluation and she requests that he be consulted for further recommendations. She a bit dehydrated, likely due to poor appetite and oral intake recently, and she will be hydrated overnight. Renal function is perhaps a bit higher than usual but not significantly so and I suspect this will improve with hydration. UA was abnormal and positive for leukocyte esterase, trace bacteria, and 21 to 30 WBC. Urine culture pending.Random glucose was 233 today. Initiate sliding scale insulin, Accu-Cheks, and hypoglycemic protocol. Check hemoglobin A1c. 08/12/2022 interval history: patient 86-year-old female resident of nursing was sent to emergency department with complaint of weakness and poor appetite cellulitis with lymphadenopathy, and diabetic left 5th toe ulcer, patient started on Cefepime, flagyl and vancomycin, will have orthopedic evaluate the wound and further recommendation to follow. will PT/OT work with the patient and further recommendation to follow. Subjective Date/time seen: 08/12/22 10:50 Chief Complaint: Weakness and poor appetite. HPI-Narrative: This is a pleasant 86-year-old female with hypertension, dyslipidemia, type 2 diabetes mellitus, chronic kidney disease, and diastolic congestive heart failure who presented to the emergency department from [facility] for evaluation of generalized weakness and poor appetite. She has not been feeling well for several days and couple of days ago she noticed redness, swelling, and pain about the left 5th toe. It has gotten progressively worse and she now has red streaking up the dorsum of the foot. Her appetite has not been good and she has had some nausea but no vomiting. She denies fever, chills, and sweats. She has not had any diarrhea.? She does endorse mild dysuria but that is not unusual for her and she takes azo if needed. She denies injury to the toe but she is not certain how she got the wound. No cold or flu symptoms. No sick contacts.? No history of MRSA 08/12/2022 interval history: patient 86-year-old female resident of nursing was sent to emergency department with complaint of weakness and poor appetite cellulitis with lymphadenopathy, and diabetic left 5th toe ulcer, patient started on Cefepime, flagyl and vancomycin, will have orthopedic evaluate the wound and further recommendation to follow. will PT/OT work with the patient and further recommendation to follow. Exam Narrative
[2022-08-12] MEDS: ACETAMINOPHEN 500 MG TABLET PO ×2 (11:15→21:18)
[2022-08-12 11:22] LABS: Glucose Point of Care 242 mg/dl (65-105)
[2022-08-12 12:10] LABS: Total Triiodothyronine (T3) 0.67 NG/ML (0.97-1.69)
[2022-08-12] MEDS: INSULIN ASPART (*BKC) 100 UNITS/ML SUB-Q ×2 (12:54→17:17)
[2022-08-12] MEDS: METOPROLOL TARTRATE 25 MG TABLET PO ×2 (12:55→21:18)
[2022-08-12 14:00] VITALS: BP 123/81; PULSE 76; RESP 16; TEMP 36.5; O2SAT 100
[2022-08-12 16:31] LABS: Glucose Point of Care 209 mg/dl (65-105)
[2022-08-12 20:55] LABS: Glucose Point of Care 219 mg/dl (65-105)
[2022-08-12] MEDS: SIMVASTATIN 20 MG TABLET 40 MG PO (21:18)
[2022-08-12] MEDS: FERROUS SULFATE 324 MG TABLET PO (21:18)
[2022-08-12] MEDS: MONTELUKAST SODIUM 10 MG TABLET PO (21:18)
[2022-08-12] MEDS: traZODone HCL 50 MG TABLET PO (21:18)
[2022-08-12 21:35] VITALS: BP 145/62; PULSE 79; RESP 16; TEMP 36.4; O2SAT 99
--- NOTE | 2022-08-13 00:27 | PC.NURSE ---
Spoke with Dr. Obrien about patient c/o pain to left foot 7/10 pain with tylenol and ice pack ineffective. New orders received for dilaudid 0.5mg once and tramadol 50mg Q6H prn for moderate pain.
[2022-08-13] MEDS: HYDROmorphone HCL INJ (*CRX) 1 MG/ML SYR 0.5 MG IV PUSH (01:00)
[2022-08-13] MEDS: metroNIDAZOLE 500 MG/ISO 100ML 500 MG/100 ML BAG 100 MG IVPB ×3 (01:05→17:31)
[2022-08-13] MEDS: METOPROLOL TARTRATE 25 MG TABLET PO ×3 (06:07→20:26)
[2022-08-13 06:43] VITALS: BP 155/77; PULSE 74; RESP 16; TEMP 36.6; O2SAT 97
[2022-08-13 06:44] LABS: Estimated CRCL calculation 26 ml/min; Estimated Glomerular Filt Rate 36
[2022-08-13 07:39] LABS: Glucose Point of Care 192 mg/dl (65-105)
[2022-08-13] MEDS: CALCIUM CARBONATE (OSCAL) 500 MG TABLET 600 MG PO ×2 (09:10→17:31)
[2022-08-13] MEDS: ENOXAPARIN 30 MG/0.3 ML SYRINGE SUB-Q (09:10)
[2022-08-13] MEDS: FUROSEMIDE 40 MG TABLET PO (09:11)
[2022-08-13] MEDS: MAGNESIUM OXIDE 400 MG TABLET PO (09:11)
[2022-08-13] MEDS: ASPIRIN 81 MG ENTERIC TABLET PO (09:11)
[2022-08-13] MEDS: EMPAGLIFLOZIN 10 MG TABLET PO (09:11)
[2022-08-13] MEDS: PANTOPRAZOLE 40 MG TABLET PO (09:11)
[2022-08-13] MEDS: PARoxetine 20 MG TABLET 40 MG PO (09:11)
[2022-08-13] MEDS: MECLIZINE HCL 12.5 MG TABLET PO ×2 (09:11→20:25)
[2022-08-13] MEDS: EZETIMIBE 10 MG TABLET PO (09:12)
[2022-08-13] MEDS: traMADol HCL (*CRX) 50 MG TABLET PO (09:19)
[2022-08-13 11:33] LABS: Glucose Point of Care 256 mg/dl (65-105)
[2022-08-13] MEDS: INSULIN ASPART (*BKC) 100 UNITS/ML SUB-Q ×2 (12:08→17:31)
--- NOTE | 2022-08-13 13:04 | PM.IMPN ---
Progress Note: A&P Assessment and Plan (1) Cellulitis of fifth toe, left: Code(s): L03.032 - Cellulitis of left toe Status: Acute (2) Cellulitis of left foot: Code(s): L03.116 - Cellulitis of left lower limb Status: Acute (3) Diabetic foot infection: Code(s): E11.628 - Type 2 diabetes mellitus with other skin complications; L08.9 - Local infection of the skin and subcutaneous tissue, unspecified Status: Acute (4) Abnormal urinalysis: Code(s): R82.90 - Unspecified abnormal findings in urine Status: Acute (5) Chronic kidney disease, stage 3: Code(s): N18.30 - Chronic kidney disease, stage 3 unspecified Status: Acute (6) Mild dehydration: Code(s): E86.0 - Dehydration Status: Acute (7) Type 2 diabetes mellitus: Code(s): E11.9 - Type 2 diabetes mellitus without complications Status: Acute (8) Hypertension: Code(s): I10 - Essential (primary) hypertension Status: Acute Plan The patient presented to the ED for evaluation of generalized weakness and lack of appetite for several days. She has also noticed increasing redness and swelling about the left 5th toe with exam findings consistent with cellulitis and lymphangitic streaking up the dorsum of the foot. There is a small open wound noted on the toe as well without active drainage. She has been started on cefepime, metronidazole, and vancomycin per antibiotic stewardship recommendations. Analgesics available as needed. She was supposed to see her director of campus recreation for evaluation and she requests that he be consulted for further recommendations. She a bit dehydrated, likely due to poor appetite and oral intake recently, and she will be hydrated overnight. Renal function is perhaps a bit higher than usual but not significantly so and I suspect this will improve with hydration. UA was abnormal and positive for leukocyte esterase, trace bacteria, and 21 to 30 WBC. Urine culture pending.Random glucose was 233 today. Initiate sliding scale insulin, Accu-Cheks, and hypoglycemic protocol. Check hemoglobin A1c. 08/13/2022 interval history: patient 86-year-old female resident of nursing was sent to emergency department with complaint of weakness and poor appetite patient is found to have cellulitis with lymphadenopathy, diabetic left 5th toe ulcer, patient started on Cefepime, flagyl and vancomycin, director of campus recreation and orthopedic are not available,, will have wound team evaluate the wound and further recommendation to follow. patient wound is growing Staph aureus, and urine culture is growing E coli, blood culture no growth so far, will continue Cefepime and and vancomycin, will have PT/OT work with the patient and further recommendation to follow. Subjective Date/time seen: 08/13/22 13:04 08/13/2022 interval history: patient 86-year-old female resident of nursing was sent to emergency department with complaint of weakness and poor appetite patient is found to have cellulitis with lymphadenopathy, diabetic left 5th toe ulcer, patient started on Cefepime, flagyl and vancomycin, director of campus recreation and orthopedic are not available,, will have wound team evaluate the wound and further recommendation to follow. patient wound is growing Staph aureus, and urine culture is growing E coli, blood culture no growth so far, will continue Cefepime and and vancomycin, will have PT/OT work with the patient and further recommendation to follow. Exam Narrative: elderly frail Patient is comfortable, NAD HEENT: eyes are clear and none icteric LUNGS:CTA HEART: RR S1S2 ABD: BS+, Soft and nontender Lower extremities: no edema SKIN: nonjaundiced Neuro: grossly intact. Objective Data Vital Signs Vital Signs: Vital Signs - 24 hr 08/12/22 14:00 08/12/22 21:35 08/12/22 20:00 Temperature 97.7 F 97.5 F L Pulse Rate 76 79 Respiratory Rate 16 16 Blood Pressure 123/81 145/62 H Pulse Oximetry 100 99 Oxygen Delivery Room
--- NOTE | 2022-08-13 13:15 | PCOTNOTE ---
Attempted OT evaluation, patient reports she is not interested in services and states she told her physician she did not want therapies. Discussed the benefits of occupational therapy with patient and patient refused evaluation.
[2022-08-13 14:00] VITALS: BP 124/64; PULSE 86; RESP 20; TEMP 36.4; O2SAT 96
--- NOTE | 2022-08-13 14:39 | PCPTNOTE ---
Attempted PT evaluation, PT refused stating good luck. RN aware. Hospitalist aware, but would like therapy to try again tomorrow. If pt is still refusing tomorrow, then OK to discharge therapy orders.
[2022-08-13 16:29] LABS: Glucose Point of Care 275 mg/dl (65-105)
--- NOTE | 2022-08-13 20:02 | PC.NURSE ---
Spoke with Blanche Crowe at this time r/t patient having increased confusion and yelling out. Patient had previously been A/Ox4, calm and pleasant. Day nurse said patient started having increased confusion this afternoon and yelling out. Patient currently yelling out and cussing people walking by. New order received for ativan mg PO once for increased agitation.
[2022-08-13] MEDS: traZODone HCL 50 MG TABLET PO (20:25)
[2022-08-13] MEDS: SIMVASTATIN 20 MG TABLET 40 MG PO (20:25)
[2022-08-13] MEDS: ACETAMINOPHEN 500 MG TABLET PO (20:26)
[2022-08-13] MEDS: FERROUS SULFATE 324 MG TABLET PO (20:26)
[2022-08-13] MEDS: MONTELUKAST SODIUM 10 MG TABLET PO (20:26)
[2022-08-13] MEDS: LORazepam (*CRX) 0.5 MG TABLET PO (20:27)
[2022-08-13 22:00] VITALS: BP 160/55; PULSE 85; RESP 17; TEMP 36.8; O2SAT 100
[2022-08-13 22:12] VITALS: O2SAT 97
[2022-08-14] MEDS: metroNIDAZOLE 500 MG/ISO 100ML 500 MG/100 ML BAG 100 MG IVPB ×3 (01:19→17:03)
[2022-08-14 06:00] VITALS: BP 164/54; PULSE 85; RESP 16; TEMP 35.7; O2SAT 94
[2022-08-14] MEDS: METOPROLOL TARTRATE 25 MG TABLET PO ×3 (06:32→21:11)
[2022-08-14 08:16] LABS: Glucose Point of Care 179 mg/dl (65-105)
[2022-08-14] MEDS: FLUTICASONE PROPIONATE 0.05% NA SPR 16 GM BTL (*BKC) 1 SPRAY NASAL (08:34)
[2022-08-14] MEDS: PARoxetine 20 MG TABLET 40 MG PO (08:35)
[2022-08-14] MEDS: EMPAGLIFLOZIN 10 MG TABLET PO (08:35)
[2022-08-14] MEDS: FUROSEMIDE 40 MG TABLET PO (08:35)
[2022-08-14] MEDS: ASPIRIN 81 MG ENTERIC TABLET PO (08:36)
[2022-08-14] MEDS: EZETIMIBE 10 MG TABLET PO (08:36)
[2022-08-14] MEDS: MAGNESIUM OXIDE 400 MG TABLET PO (08:36)
[2022-08-14] MEDS: PANTOPRAZOLE 40 MG TABLET PO (08:37)
[2022-08-14] MEDS: CALCIUM CARBONATE (OSCAL) 500 MG TABLET 600 MG PO ×2 (08:37→16:31)
[2022-08-14] MEDS: MECLIZINE HCL 12.5 MG TABLET PO ×2 (08:37→21:11)
[2022-08-14] MEDS: ENOXAPARIN 30 MG/0.3 ML SYRINGE SUB-Q (08:38)
[2022-08-14] MEDS: HYDROCORTISONE 2.5% CREAM 30 GM TUBE 1 APPLIC TOPICAL (08:39)
--- NOTE | 2022-08-14 09:43 | PM.IMPN ---
Progress Note: A&P Assessment and Plan (1) Cellulitis of foot, left: Code(s): L03.116 - Cellulitis of left lower limb Status: Acute Assessment and Plan: Improving, monitor on IV abx Vancomycin, cefepime, Flagyl Consult general surgery for necrosis noted on toes, obtain further imaging to eval for osteomyelitis and/or abscess Plan DVT prophylaxis with Lovenox GI prophylaxis with PPI Code status full code Subjective Date/time seen: 08/14/22 09:43 Interval history: No overnight events noted. No chest pain or shortness of breath. No nausea, vomiting or diarrhea. No fevers or chills. She is c/o pain in her left foot and requesting a stronger pain meds. Review of Systems Review of Systems: 12 point review of systems was assessed and was negative except as noted in the HPI Exam Narrative: General: No acute distress, alert and oriented per baseline HEENT: Atraumatic, normocephalic, mucous membranes moist CV: Regular rate and rhythm, S1, S2 Lungs: Clear to auscultation bilaterally, no rales or crackles noted, no wheezes, good air entry Abdomen: Soft, nontender, nondistended Extremities: erythema noted over left 5th toe, some necrosis noted over base of 4th and 5th toes Objective Data Vital Signs Vital Signs: Vital Signs - 24 hr 08/13/22 14:00 08/13/22 20:00 08/13/22 22:00 Temperature 97.6 F 98.2 F Pulse Rate 86 85 Respiratory Rate 20 17 Blood Pressure 124/64 160/55 H Pulse Oximetry 96 100 Oxygen Delivery Room Air 08/13/22 22:12 08/14/22 06:00 Temperature 96.2 F L Pulse Rate 85 Respiratory Rate 16 Blood Pressure 164/54 H Pulse Oximetry 97 94 Oxygen Delivery Room Air Intake/Output Intake/Output: Intake & Output 08/11/22 08/12/22 08/13/22 08/14/22 23:59 23:59 23:59 23:59 Intake Total 1370 3350 1170 100 Output Total 400 Balance 1370 2950 1170 100 Meds/Results Medications: Active Medications Generic Name Dose Route Start Last Admin Trade Name Freq PRN Reason Stop Dose Admin Acetaminophen 500 mg 08/11/22 19:13 08/13/22 20:26 Acetaminophen 500 Mg Tablet PO 500 mg Q6H PRN Administration Pain Aspirin 81 mg 08/12/22 09:00 08/14/22 08:36 Aspirin 81 Mg Enteric Tablet PO 81 mg DAILY MELANIE Administration Calcium Carbonate 600 mg 08/12/22 09:00 08/14/22 08:37 Calcium Carbonate (Oscal) 500 Mg Tablet PO 09/11/22 08:59 500 mg BID MELANIE Administration Dextrose 12.5 gm 08/11/22 19:09 Dextrose 50% 25 Gm/50 Ml Syringe IV PUSH PRN PRN Hypoglycemia Protocol Ezetimibe 10 mg 08/12/22 09:00 08/14/22 08:36 Ezetimibe 10 Mg Tablet PO 10 mg DAILY MELANIE Administration Empagliflozin 10 mg 08/12/22 09:00 08/14/22 08:35 Empagliflozin 10 Mg Tablet PO 10 mg DAILY MELANIE Administration Enoxaparin Sodium 30 mg 08/12/22 09:00 08/14/22 08:38 Enoxaparin 30 Mg/0.3 Ml Syringe SUB-Q 30 mg DAILY MELANIE Administration Ferrous Sulfate 324 mg 08/11/22 21:00 08/13/22 20:26 Ferrous Sulfate 324 Mg Tablet PO 09/10/22 20:59 324 mg HS MELANIE Administration Fluticasone Propionate 1 spray 08/11/22 19:13 08/14/22 08:34 Fluticasone Propionate 0.05% Na Spr 16 Gm Btl (*Bkc) NASAL 1 spray BID PRN Administration Congestion Furosemide 40 mg 08/12/22 09:00 08/14/22 08:35 Furosemide 40 Mg Tablet PO 40 mg DAILY MELANIE Administration Glucagon 1 mg 08/11/22 19:09 Glucagon For Inj 1 Mg Vial IM PRN PRN Hypoglycemia Protocol Glucose 15 gm 08/11/22 19:09 Glucose Oral Gel 15 Gm Of Glucse In 37.5 Gm Tube PO PRN PRN Hypoglycemia Protocol Hydrocortisone 1 applic 08/11/22 19:13 08/14/22 08:39 Hydrocortisone 2.5% Cream 30 Gm Tube TOPICAL 1 applic Q12H PRN Administration Hemorrhoids Cefepime HCl 1 gm in 50 mls @ 100 mls/hr 08/12/22 20:00 08/13/22 21:58 Maxipime 1 Gm/D5w 50 Ml IVPB Infused Q24H MELANIE Infusion Metronidazole
[2022-08-14 10:20] LABS: Basophils Percent Auto 0.4 % (0.2-1.2); Eosinophils Absolute Auto 0.2 K/mm3 (0-0.3); Eosinophils Percent Auto 2.1 % (0-4.4); Hematocrit 31.1 % (37.0-47.0); Hemoglobin 10.1 g/dL (12.0-15.0); Immature Granulocyte Absolute 0.04 K/mm3 (0.00-0.031); Immature Granulocyte Percent A 0.5 % (0-0.5); Lymphocytes Absolute Auto 0.91 K/mm3 (0.9-3.2); Lymphocytes Percent Auto 11.7 % (18.3-44.2); Mean Corpuscular HGB Conc 32.5 g/dl (32-36); Mean Corpuscular Hemoglobin 30.9 pg (26-34); Mean Corpuscular Volume 95.1 fl (80-100); Mean Platelet Volume 8.9 fl (7.4-10.4); Monocytes Absolute Auto 0.5 K/mm3 (0.1-0.6); Neutrophils Absolute Auto 6.2 K/mm3 (1.3-6.7); Neutrophils Percent Auto 79.3 % (45.5-73.1); Platelet Count Result 177 k/mm3 (150-375); Red Blood Count 3.27 M/mm3 (4.2-5.4); Red Cell Distribution Width 11.8 % (11.5-14.5); White Blood Count 7.8 K/mm3 (4.5-10.0)
[2022-08-14 10:23] LABS: Alanine Aminotransferase 16 U/L (6-35); Albumin Level 3.3 g/dL (3.5-5.1); Alkaline Phosphatase 64 U/L (38-126); Anion Gap 5 mmol/L (8-16); Aspartate Amino Transferase 24 U/L (14-36); Bilirubin,Total 0.2 mg/dL (0.2-1.3); Blood Urea Nitrogen 33 mg/dL (7-17); Carbon Dioxide 28 mmol/L (22-30); Chloride 100 mmol/L (98-107); Estimated CRCL calculation 26 ml/min; Estimated Glomerular Filt Rate 36; Glucose 251 mg/dL (65-110); Sodium 133 mmol/L (137-145)
[2022-08-14 11:38] LABS: Glucose Point of Care 216 mg/dl (65-105)
[2022-08-14] MEDS: INSULIN ASPART (*BKC) 100 UNITS/ML SUB-Q ×2 (12:16→17:02)
[2022-08-14 13:45] VITALS: BP 125/70; PULSE 85; RESP 16; TEMP 36.7; O2SAT 100
[2022-08-14 14:32] LABS: Vancomycin Trough 12.7 ug/mL (10.0-20.0)
[2022-08-14 16:45] LABS: Glucose Point of Care 220 mg/dl (65-105)
[2022-08-14] MEDS: ACETAMINOPHEN 500 MG TABLET PO (18:52)
[2022-08-14] MEDS: FERROUS SULFATE 324 MG TABLET PO (21:10)
[2022-08-14] MEDS: traZODone HCL 50 MG TABLET PO (21:10)
[2022-08-14 21:11] VITALS: PULSE 72
[2022-08-14] MEDS: MONTELUKAST SODIUM 10 MG TABLET PO (21:13)
[2022-08-14] MEDS: SIMVASTATIN 20 MG TABLET 40 MG PO (21:13)
[2022-08-14 21:50] LABS: Glucose Point of Care 204 mg/dl (65-105)
[2022-08-14 21:55] VITALS: BP 123/50; PULSE 72; RESP 14; TEMP 36.1; O2SAT 96
[2022-08-15] MEDS: metroNIDAZOLE 500 MG/ISO 100ML 500 MG/100 ML BAG 100 MG IVPB (01:41)
[2022-08-15 06:00] VITALS: BP 150/55; PULSE 71; RESP 14; TEMP 36.1; O2SAT 97
[2022-08-15 06:29] VITALS: PULSE 71
[2022-08-15] MEDS: METOPROLOL TARTRATE 25 MG TABLET PO ×3 (06:29→21:08)
[2022-08-15 07:20] LABS: Basophils Percent Auto 0.6 % (0.2-1.2); Eosinophils Absolute Auto 0.2 K/mm3 (0-0.3); Eosinophils Percent Auto 2.8 % (0-4.4); Hematocrit 33.1 % (37.0-47.0); Hemoglobin 10.6 g/dL (12.0-15.0); Immature Granulocyte Absolute 0.03 K/mm3 (0.00-0.031); Immature Granulocyte Percent A 0.5 % (0-0.5); Lymphocytes Absolute Auto 0.94 K/mm3 (0.9-3.2); Lymphocytes Percent Auto 14.5 % (18.3-44.2); Mean Corpuscular Hemoglobin 29.9 pg (26-34); Mean Corpuscular Volume 93.2 fl (80-100); Mean Platelet Volume 8.9 fl (7.4-10.4); Monocytes Absolute Auto 0.5 K/mm3 (0.1-0.6); Monocytes Percent Auto 6.9 % (2.6-8.5); Neutrophils Absolute Auto 4.8 K/mm3 (1.3-6.7); Neutrophils Percent Auto 74.7 % (45.5-73.1); Platelet Count Result 200 k/mm3 (150-375); Red Blood Count 3.55 M/mm3 (4.2-5.4); Red Cell Distribution Width 11.6 % (11.5-14.5); White Blood Count 6.5 K/mm3 (4.5-10.0)
[2022-08-15 07:25] LABS: Alanine Aminotransferase 19 U/L (6-35); Albumin Level 3.6 g/dL (3.5-5.1); Alkaline Phosphatase 69 U/L (38-126); Anion Gap 6 mmol/L (8-16); Aspartate Amino Transferase 37 U/L (14-36); Bilirubin,Total 0.4 mg/dL (0.2-1.3); Blood Urea Nitrogen 33 mg/dL (7-17); Calcium 8.1 mg/dL (8.4-10.2); Carbon Dioxide 28 mmol/L (22-30); Chloride 98 mmol/L (98-107); Estimated CRCL calculation 30 ml/min; Estimated Glomerular Filt Rate 43; Glucose 164 mg/dL (65-110); Potassium 3.8 mmol/L (3.4-5.0); Sodium 132 mmol/L (137-145)
[2022-08-15 08:20] LABS: Glucose Point of Care 154 mg/dl (65-105)
--- NOTE | 2022-08-15 09:20 | PC.NURSE ---
Patient off of unit to MRI
--- NOTE | 2022-08-15 10:18 | PC.NURSE ---
Patient back on unit from MRI.
[2022-08-15] MEDS: PARoxetine 20 MG TABLET 40 MG PO (10:33)
[2022-08-15] MEDS: MECLIZINE HCL 12.5 MG TABLET PO ×2 (10:33→21:08)
[2022-08-15] MEDS: ENOXAPARIN 30 MG/0.3 ML SYRINGE SUB-Q (10:33)
[2022-08-15] MEDS: CALCIUM CARBONATE (OSCAL) 500 MG TABLET PO ×2 (10:33→17:48)
[2022-08-15] MEDS: MAGNESIUM OXIDE 400 MG TABLET PO (10:33)
[2022-08-15] MEDS: EMPAGLIFLOZIN 10 MG TABLET PO (10:33)
[2022-08-15] MEDS: PANTOPRAZOLE 40 MG TABLET PO (10:33)
[2022-08-15] MEDS: FUROSEMIDE 40 MG TABLET PO (10:33)
[2022-08-15] MEDS: EZETIMIBE 10 MG TABLET PO (10:33)
[2022-08-15 11:33] LABS: Glucose Point of Care 258 mg/dl (65-105)
[2022-08-15] MEDS: INSULIN ASPART (*BKC) 100 UNITS/ML SUB-Q ×2 (11:47→17:48)
[2022-08-15] MEDS: ASPIRIN 81 MG ENTERIC TABLET PO (11:49)
[2022-08-15 14:00] VITALS: BP 128/52; PULSE 117; RESP 20; TEMP 37.1; O2SAT 98
--- NOTE | 2022-08-15 15:18 | PM.CNGS ---
Assessment and Plan Assessment and plan (1) Cellulitis of fifth toe, left: Code(s): L03.032 - Cellulitis of left toe Status: Acute Assessment and Plan: She has developed an abscess around the left 5th MP joint with proximal cellulitis of the dorsal aspect of the left forefoot and left 5th toe. She would need incision and drainage of the abscess in the left foot and 5th toe. At this time there does not appear to be any gangrene changes or need for amputation of the left 5th toe. She does have MRI finding suggestive of possible osteomyelitis in this area which might require an extended course of IV antibiotics. Alternatively I also discussed with her the possibility of needing a left 5th toe amputation. Will keep her NPO in the morning and plan on taking her to the operating room for incision and drainage of the left foot abscess. History of Present Illness Consult details Consult date: 08/15/22 Reason for consult: other Narrative: The patient is a 86-year-old female who presented with redness and pain over the left 5th toe after she was admitted for weakness. She she in the past has been treated by Podiatry for her foot problems. She started noticing pain in the left 5th toe with proximal redness spreading up to her ankle along the dorsum of the foot. she has a history of diabetes, congestive heart failure, and hypertension. MRI of the left foot today showed soft tissue swelling and abscess overlying the lateral aspect of the left foot involving the 5th toe. Osteomyelitis was suspected. She currently is being treated with IV antibiotics and stays to the redness on the dorsal aspect of the left foot has improved. Review of Systems Review of Systems: The remainder of the review of systems to include constitutional, HEENT, cardiovascular, respiratory, GI, , integumentary, musculoskeletal, endocrine, immunologic, hematologic, psychiatric, and neurologic are all negative except for which is mentioned above in the HPI. [facility] Past Medical History Medical History Anemia History of blood transfusions. Aortic valve stenosis [id number] aortic valve stenosis on echocardiogram in April 2021 with a valve area of 1.1 to 1.5 centimeter squared. Arthritis Chronic kidney disease, stage 3 Creatinine seems to range between 0.7 and 1.30. Depression Diabetic peripheral neuropathy Diastolic congestive heart failure Echocardiogram on 12/13/2020 showed normal left ventricular size with moderate consent of left ventricular hypertrophy with overall good left ventricular systolic function with an EF measuring 62%. There was hypokinesis of the basal inferoseptal segment as well as grade 1 diastolic dysfunction with moderately enlarged left atrial chamber and atrial septal aneurysm. Diverticulitis Fracture of proximal end of right humerus (07/24/19) Gastroesophageal reflux GI bleed History of rectal polyps Hyperlipidemia Hypertension Primary osteoarthritis of both knees Severe pulmonary hypertension Noted on echocardiogram April 2021. PASP was 60 5 mmHg. Stenosis of right internal carotid artery 51% stenosis of the proximal right ICA on CTA in December 2021. Trigger finger of both hands Type 2 diabetes mellitus Hemoglobin A1c was 6.8% on 12/12/2020. Surgical History Surgical History Fracture of right hip requiring operative repair History of appendectomy History of bilateral cataract extraction History of colon resection History of hysterectomy History of inguinal hernia repair History of rectal polypectomy History of toe surgery Family History Family History Sibling Carcinoma of colon Father Black lung disease Heart disease Hypertension Mother Hypertension Other Diabetes mellitus Family history of arthritis Family history of gout Family histor
[2022-08-15 15:19] VITALS: PULSE 85
--- NOTE | 2022-08-15 15:55 | PM.IMPN ---
Progress Note: A&P Assessment and Plan (1) Cellulitis of foot, left: Code(s): L03.116 - Cellulitis of left lower limb Status: Acute Assessment and Plan: Improving, monitor on IV abx Vancomycin, cefepime, Flagyl discontinued Consult general surgery for necrosis noted on toes, obtain further imaging to eval for osteomyelitis and/or abscess First MTP joint with possible chronic gout, abscess vs osteomyelitis at the 5th ITP joint, other milly of possible gout? Plan DVT prophylaxis with Lovenox GI prophylaxis with PPI Code status full code Subjective Date/time seen: 08/15/22 15:55 Interval history: No overnight events noted. No chest pain or shortness of breath. No nausea, vomiting or diarrhea. No fevers or chills. Review of Systems Review of Systems: 12 point review of systems was assessed and was negative except as noted in the HPI Exam Narrative: General: No acute distress, alert and oriented per baseline HEENT: Atraumatic, normocephalic, mucous membranes moist CV: Regular rate and rhythm, S1, S2 Lungs: Clear to auscultation bilaterally, no rales or crackles noted, no wheezes, good air entry Abdomen: Soft, nontender, nondistended Extremities: erythema noted over left 5th toe, some necrosis noted over base of 4th and 5th toes Objective Data Vital Signs Vital Signs: Vital Signs - 24 hr 08/14/22 21:11 08/14/22 21:55 08/15/22 06:00 Temperature 96.9 F L 96.9 F L Pulse Rate 72 72 71 Respiratory Rate 14 14 Blood Pressure 123/50 L 150/55 H Pulse Oximetry 96 97 08/15/22 06:29 08/15/22 14:00 08/15/22 15:19 Temperature 98.7 F Pulse Rate 71 117 H 85 Respiratory Rate 20 Blood Pressure 128/52 L Pulse Oximetry 98 Intake/Output Intake/Output: Intake & Output 08/12/22 08/13/22 08/14/22 08/15/22 23:59 23:59 23:59 23:59 Intake Total 3350 1170 2340 1590 Output Total 400 450 Balance 2950 1170 1890 1590 Meds/Results Medications: Active Medications Generic Name Dose Route Start Last Admin Trade Name Freq PRN Reason Stop Dose Admin Acetaminophen 500 mg 08/11/22 19:13 08/14/22 18:52 Acetaminophen 500 Mg Tablet PO 500 mg Q6H PRN Administration Mild Pain (1-3) Hydrocodone Bitart/Acetaminophen 1 tab 08/14/22 17:20 Hydrocodone/Acetaminophen (*Crx) 5-325 Mg Tablet PO Q4H PRN Pain Rated 4-6 Aspirin 81 mg 08/12/22 09:00 08/15/22 11:49 Aspirin 81 Mg Enteric Tablet PO 81 mg DAILY MELANIE Administration Calcium Carbonate 500 mg 08/15/22 09:00 08/15/22 10:33 Calcium Carbonate (Oscal) 500 Mg Tablet PO 500 mg BID MELANIE Administration Dextrose 12.5 gm 08/11/22 19:09 Dextrose 50% 25 Gm/50 Ml Syringe IV PUSH PRN PRN Hypoglycemia Protocol Diphenhydramine HCl 25 mg 08/14/22 18:53 Diphenhydramine Hcl Cap 25 Mg Capsule PO Q6H PRN Itching Ezetimibe 10 mg 08/12/22 09:00 08/15/22 10:33 Ezetimibe 10 Mg Tablet PO 10 mg DAILY MELANIE Administration Empagliflozin 10 mg 08/12/22 09:00 08/15/22 10:33 Empagliflozin 10 Mg Tablet PO 10 mg DAILY MELANIE Administration Enoxaparin Sodium 30 mg 08/12/22 09:00 08/15/22 10:33 Enoxaparin 30 Mg/0.3 Ml Syringe SUB-Q 30 mg DAILY MELANIE Administration Ferrous Sulfate 324 mg 08/11/22 21:00 08/14/22 21:10 Ferrous Sulfate 324 Mg Tablet PO 09/10/22 20:59 324 mg HS MELANIE Administration Fluticasone Propionate 1 spray 08/11/22 19:13 08/14/22 08:34 Fluticasone Propionate 0.05% Na Spr 16 Gm Btl (*Bkc) NASAL 1 spray BID PRN Administration Congestion Furosemide 40 mg 08/12/22 09:00 08/15/22 10:33 Furosemide 40 Mg Tablet PO 40 mg DAILY MELANIE Administration Glucagon 1 mg 08/11/22 19:09 Glucagon For Inj 1 Mg Vial IM PRN PRN Hypoglycemia Protocol Glucose 15 gm 08/11/22 19:09 Glucose Oral Gel 15 Gm Of Glucse In 37.5 Gm Tube PO PRN PRN Hypoglycemia Protocol Hydrocortisone 1
[2022-08-15 16:37] LABS: Glucose Point of Care 227 mg/dl (65-105)
[2022-08-15] MEDS: KETOCONAZOLE 2% SHAMPOO 120 ML BOTTLE 1 APPLIC TOPICAL (17:48)
--- NOTE | 2022-08-15 18:50 | PC.NURSE ---
Patient will answer orientation questions appropriately, but it very forgetful and repetitive. MRI consent screening form was completed via phone call to gregory Luong (only contact lens technician on patients chart). Patient aware of the situation. Patient needed further consent forms filled out due to scheduled surgery tomorrow. Surgery consent form and blood consent form were completed via phone call to gregory Luong. Patient aware of the situation. Ag called patient to discuss plans for tomorrow. Patient became very frustrating screaming at RN that we locked her wallet up and she wants it now. RN checked closets and safe and no wallet addressed to patient was located. RN called [place] (where patient lives) for them to check if patients wallet is there. Patient's wallet was not there. RN goes to update patient and patient locates wallet in her tray drawer and claimed staff hid it from her. Patient begins to yell at RN for updating son on MRI today and surgery scheduled for tomorrow. RN educated patient that her only contact lens technician is her son Ag and she has given us permission to update him on information as she has allowed him to be on her chart as a form of contact. RN updated ski patrol officer and ski patrol officer spoke to the patient as well. Patient has agreed that staff CAN disclose information to gregory Luong and understands the situation.
[2022-08-15 20:23] LABS: Glucose Point of Care 261 mg/dl (65-105)
[2022-08-15] MEDS: ACETAMINOPHEN 500 MG TABLET PO (21:07)
[2022-08-15 21:08] VITALS: PULSE 80
[2022-08-15] MEDS: traZODone HCL 50 MG TABLET PO (21:08)
[2022-08-15] MEDS: MONTELUKAST SODIUM 10 MG TABLET PO (21:08)
[2022-08-15] MEDS: SIMVASTATIN 20 MG TABLET 40 MG PO (21:08)
[2022-08-15] MEDS: FERROUS SULFATE 324 MG TABLET PO (21:08)
[2022-08-15] MEDS: diphenhydrAMINE HCl CAP 25 MG CAPSULE PO (21:19)
[2022-08-15 21:35] VITALS: BP 136/54; PULSE 77; RESP 18; TEMP 36.7; O2SAT 97
[2022-08-16] VITALS (12 sets, daily range): BP systolic 110–149; BP diastolic 46–87; PULSE 60–71; RESP 12–18; TEMP 35.8–36.7; O2SAT 95–100
[2022-08-16] MEDS: SODIUM CHLORIDE 0.45% 1,000 ML 70 ML IV CONT ×2 (01:32→20:21)
[2022-08-16] MEDS: METOPROLOL TARTRATE 25 MG TABLET PO ×2 (07:03→21:00)
[2022-08-16 07:16] LABS: Basophils Percent Auto 0.5 % (0.2-1.2); Eosinophils Absolute Auto 0.2 K/mm3 (0-0.3); Eosinophils Percent Auto 4.2 % (0-4.4); Hematocrit 32.5 % (37.0-47.0); Hemoglobin 10.5 g/dL (12.0-15.0); Immature Granulocyte Absolute 0.04 K/mm3 (0.00-0.031); Immature Granulocyte Percent A 0.7 % (0-0.5); Lymphocytes Percent Auto 17.4 % (18.3-44.2); Mean Corpuscular HGB Conc 32.3 g/dl (32-36); Mean Corpuscular Hemoglobin 30.3 pg (26-34); Mean Corpuscular Volume 93.7 fl (80-100); Mean Platelet Volume 9.1 fl (7.4-10.4); Monocytes Absolute Auto 0.4 K/mm3 (0.1-0.6); Neutrophils Percent Auto 70.2 % (45.5-73.1); Platelet Count Result 206 k/mm3 (150-375); Red Blood Count 3.47 M/mm3 (4.2-5.4); Red Cell Distribution Width 11.8 % (11.5-14.5); White Blood Count 5.8 K/mm3 (4.5-10.0)
[2022-08-16 07:28] LABS: Alanine Aminotransferase 20 U/L (6-35); Albumin Level 3.4 g/dL (3.5-5.1); Alkaline Phosphatase 76 U/L (38-126); Anion Gap 4 mmol/L (8-16); Aspartate Amino Transferase 32 U/L (14-36); Bilirubin,Total 0.1 mg/dL (0.2-1.3); Blood Urea Nitrogen 35 mg/dL (7-17); Calcium 8.5 mg/dL (8.4-10.2); Carbon Dioxide 33 mmol/L (22-30); Chloride 94 mmol/L (98-107); Estimated CRCL calculation 26 ml/min; Estimated Glomerular Filt Rate 36; Glucose 221 mg/dL (65-110); Potassium 3.7 mmol/L (3.4-5.0); Sodium 131 mmol/L (137-145)
[2022-08-16 07:46] LABS: Glucose Point of Care 252 mg/dl (65-105)
[2022-08-16] MEDS: INSULIN ASPART (*BKC) 100 UNITS/ML SUB-Q ×2 (08:04→16:59)
[2022-08-16] MEDS: PANTOPRAZOLE 40 MG TABLET PO (08:08)
[2022-08-16] MEDS: EZETIMIBE 10 MG TABLET PO (08:08)
[2022-08-16] MEDS: CALCIUM CARBONATE (OSCAL) 500 MG TABLET PO ×2 (08:08→17:12)
[2022-08-16] MEDS: FUROSEMIDE 40 MG TABLET PO (08:09)
[2022-08-16] MEDS: MECLIZINE HCL 12.5 MG TABLET PO ×2 (08:09→20:29)
[2022-08-16] MEDS: ASPIRIN 81 MG ENTERIC TABLET PO (08:09)
[2022-08-16] MEDS: PARoxetine 20 MG TABLET 40 MG PO (08:10)
[2022-08-16] MEDS: MAGNESIUM OXIDE 400 MG TABLET PO (08:11)
--- NOTE | 2022-08-16 08:37 | WPDANESEPPF ---
Anes - Initial Pre Proc Eval Procedure: Operation Date: 08/16/22 13:30 Proposed Procedures p Incision And Drainage Left Foot - Eddie Dozier MD Date/Time: 08/16/22 08:37 Surgeon: Keerthi Owens DO Pre Op Diagnosis: left foot cellulitis,uti,renal insufficiency Patient Data Age: 86 Gender: F Height: 1.7 m Weight: 66 kg Last Vital Signs Temp 36.7 C 08/16/22 05:17 Pulse 63 08/16/22 07:03 Resp 17 08/16/22 05:17 BP 134/52 L 08/16/22 05:17 Pulse Ox 98 08/16/22 05:17 O2 Del Method Room Air 08/15/22 08:00 Allergies Allergy/AdvReac Type Severity Reaction Status Date / Time influenza A (H1N1) virus Allergy Unknown Swelling Verified 07/01/22 10:47 vaccine [id number] 2008 of Lip/Tongue/Throat Influenza Virus Vaccines Allergy Unknown Swelling Verified 07/01/22 10:47 of Lip/Tongue/Throat phenobarbital AdvReac Mild Hallucinati Verified 07/01/22 10:47 ng Home Medications Medication Instructions Recorded Confirmed Type fluticasone propionate 50 1 spray intranasal BID PRN 07/24/19 08/11/22 History mcg/actuation nasal Congestion spray,suspension furosemide 40 mg tablet 40 mg PO DAILY 07/24/19 08/11/22 History montelukast 10 mg tablet 10 mg PO HS 07/24/19 08/11/22 History trazodone 50 mg tablet 50 mg PO HS #10 tabs 07/27/19 08/11/22 Rx magnesium oxide 400 mg (241.3 mg 400 mg PO QAM 30 days #30 tabs 09/03/19 08/11/22 Rx magnesium) tablet metoprolol tartrate 25 mg tablet 25 mg PO TID 12/12/20 08/11/22 History simvastatin 40 mg tablet 40 mg PO HS 12/12/20 08/11/22 History acetaminophen 500 mg capsule 500 mg PO Q6H PRN Pain 04/15/22 08/11/22 History calcium carbonate 600 mg calcium 600 mg PO BID 04/15/22 08/11/22 History (1,500 mg) tablet hydrocortisone 2.5 % topical cream 1 applic topical Q12H PRN 04/15/22 08/11/22 History with perineal applicator Hemorrhoids (Proctosol HC) omeprazole 20 mg capsule,delayed 20 mg PO DAILY 04/15/22 08/11/22 History release ezetimibe 10 mg tablet 10 mg PO DAILY #90 tabs 04/23/22 08/11/22 Rx paroxetine HCl 40 mg tablet 40 mg PO DAILY #90 tabs 04/23/22 08/11/22 Rx sitagliptin phosphate 100 mg 100 mg PO DAILY #90 tabs 06/29/22 08/11/22 Rx tablet (Januvia) empagliflozin 10 mg tablet 10 mg PO DAILY #90 tabs 08/03/22 08/11/22 Rx (Jardiance) aspirin 81 mg tablet,delayed 81 mg PO DAILY 08/11/22 08/11/22 History release ferrous sulfate 325 mg (65 mg 325 mg PO HS 08/11/22 08/11/22 History iron) capsule,extended release meclizine 12.5 mg tablet 12.5 mg PO Q12H 08/11/22 08/11/22 History Laboratory Tests 08/15/22 08/15/22 08/15/22 11:25 16:15 19:58 WBC RBC Hgb Hct MCV MCH MCHC RDW Plt Count MPV Immature Gran % (Auto) Neut % (Auto) Lymph % (Auto) [place] % (Auto) Eos % (Auto) Baso % (Auto) Lymph # (Auto) [place] # (Auto) Eos # (Auto) Baso # (Auto) Abs Immat Gran (auto) Absolute Neuts (auto) Absolute Nucleated RBC Nucleated RBC % Sodium Potassium Chloride Carbon Dioxide Anion Gap BUN Creatinine Estim Creat Clear Calc Estimated GFR Glucose POC Capillary Glucose 258 mg/dl H mg/dl 227 mg/dl H mg/dl 261 mg/dl H mg/dl (65-105) (65-105) (65-105) Calcium Total Bilirubin AST ALT Alkaline Phosphatase Total Protein Albumin 08/16/22 08/16/22 08/16/22 06:39 06:39 07:37 WBC 5.8 K/mm3 K/mm3 (4.5-10.0) RBC 3.47 M/mm3 L M/mm3 (4.2-5.4) Hgb 10.5 g/dL L g/dL (12.0-15.0) Hct 32.
--- NOTE | 2022-08-16 10:44 | PM.IMPN ---
Progress Note: A&P Assessment and Plan (1) Cellulitis of foot, left: Code(s): L03.116 - Cellulitis of left lower limb Status: Acute Assessment and Plan: Improving, monitor on IV abx Vancomycin, cefepime, Flagyl discontinued Consult general surgery for necrosis noted on toes, obtain further imaging to eval for osteomyelitis and/or abscess First MTP joint with possible chronic gout, abscess vs osteomyelitis at the 5th ITP joint, other milly of possible gout? 08/16/2022 interval history: patient had MRI of the foot and it showed Prominent erosions in several phalanges as well as at the head of the first metatarsal. This appears chronic at the first metatarsophalangeal joint with imaging features on CT and MRI most consistent with gout, and likely also at the third proximal interphalangeal joint. At the fifth distal interphalangeal joint there is a prominent soft tissue edema and an associated loculated fluid collection which is more suspicious for either infection or secondary superinfection with abscess and osteomyelitis. Appearance at the second distal interphalangeal joint and distal phalanx lies in the spectrum between these 2 appearances, consistent with gout but equivocal for secondary superinfection. Flagyl was discountinued and patient is being treated with Cefepime and vancomycin, seen by surgery service and scheduled for I & D possibly biopsy of the bone to r/o OM, will CPM and follow up and further recommendations to follow, will continue to monitor Plan DVT prophylaxis with Lovenox GI prophylaxis with PPI Code status full code Subjective Date/time seen: 08/16/22 10:44 Improving, monitor on IV abx Flagyl discontinued Consult general surgery for necrosis noted on toes, obtain further imaging to eval for osteomyelitis and/or abscess First MTP joint with possible chronic gout, abscess vs osteomyelitis at the 5th ITP joint, other milly of possible gout? 08/16/2022 interval history: patient had MRI of the foot and it showed Prominent erosions in several phalanges as well as at the head of the first metatarsal. This appears chronic at the first metatarsophalangeal joint with imaging features on CT and MRI most consistent with gout, and likely also at the third proximal interphalangeal joint. At the fifth distal interphalangeal joint there is a prominent soft tissue edema and an associated loculated fluid collection which is more suspicious for either infection or secondary superinfection with abscess and osteomyelitis. Appearance at the second distal interphalangeal joint and distal phalanx lies in the spectrum between these 2 appearances, consistent with gout but equivocal for secondary superinfection. Flagyl was discountinued and patient is being treated with Cefepime and vancomycin, seen by surgery service and scheduled for I & D possibly biopsy of the bone to r/o OM, will CPM and follow up and further recommendations to follow, will continue to monitor Exam Narrative: ?elderly frail Patient is comfortable, NAD HEENT: eyes are clear and none icteric LUNGS:CTA HEART: RR S1S2 ABD: BS+, Soft and nontender Lower extremities: no edema MS: left foot planter aspect 5th toe necrosis and today there is a necrotic lesion on dorsal aspect of 5th toe. SKIN: nonjaundiced Neuro: grossly intact. Objective Data Vital Signs Vital Signs: Vital Signs - 24 hr 08/15/22 14:00 08/15/22 15:19 08/15/22 21:08 Temperature 98.7 F Pulse Rate 117 H 85 80 Respiratory Rate 20 Blood Pressure 128/52 L Pulse Oximetry 98 08/15/22 21:35 08/16/22 05:17 08/16/22 07:03 Temperature 98.0 F 98.0 F Pulse Rate 77 63 63 Respiratory Rate 18 17 Blood Pressure 136/54 L 134/52 L Pulse Oximetry 97 98 Intake/Output Intake/Output: Intake & Output 08/13/22 08/14/22 08/15/22 08/16/22 23:59 23:59 23:59 23:59 Intake Total 1170 2340 2260 350 Output Total 450 400 500 Balance 1170 1890 1860 -150 Meds/Results Medi
[2022-08-16] MEDS: ONDANSETRON INJ 4 MG/2 ML VIAL IV PUSH (10:50)
[2022-08-16 11:19] LABS: Glucose Point of Care 196 mg/dl (65-105)
[2022-08-16] MEDS: LACTATED RINGERS 1,000 ML 30 ML IV CONT (12:32)
--- NOTE | 2022-08-16 12:45 | WPDHPUPDATE1 ---
History and Physical Update Update Date/Time: 08/16/22 12:45 History and Physical has been reviewed, including an updated exam of the patient. There are NO changes in the patient's condition. Risks, benefits, and alternatives have been discussed and questions answered. Patient agrees to proceed with procedure.
[2022-08-16] MEDS: BUPIVACAINE HCL 0.5% PF 30 ML VIAL INFILTRATE (13:01)
--- NOTE | 2022-08-16 13:38 | P.OP_ITS ---
Procedure Note - Detailed Date of Procedure 08/16/22 Pre-op Diagnosis left foot cellulitis and abscess Post-op Diagnosis Same Procedure Performed Incision and drainage of left forefoot and 5th toe abscess. Surgeon Eddie Dozier MD Anesthesia General Description of Procedure After informed consent was obtained the patient was brought to the operating room were she was placed in supine position and then general LMA anesthesia was administered. The left foot and lower leg up to the mid tibia region was then p repped and draped in the usual sterile fashion circumferentially. A time-out was then performed correctly identifying the patient as well as procedure to be performed and verified site marking. She was already on scheduled IV antibiotics. I then made a longitudinal incision over the top of the left 5th toe which was fluctuant. It extended back to the left 5th metatarsalphalengeal joint. There was small amount of fluid that was drained. I obtained a deep wound culture and sent this to microbiology. A small amount of nonviable tissue was found and it was cut away with Metzenbaum scissors. The underlying phalanx to the left 5th toe was exposed but viable. She probably has involvement of the bone and resulting osteomyelitis. The joint spaces remained intact and so there was no need to perform a amputation of the toe. Hemostasis was achieved utilizing cautery and then the wound was irrigated with copious amounts of sterile saline solution. It was then packed with quarter-inch iodoform gauze. It was then wrapped with fluff gauze and a Kerlix gauze. A 4 inch Don wrap was used for final dressing. Estimated Blood Loss 5 Urine Output 300 Drains No Packing Yes (Quarter-inch iodoform gauze) Pathology Other (Wound culture sent to microbiology) Complications No immediate complications Condition Stable Disposition PACU [facility] Billing Surgery - Charge Forward: Surgery Billing
[2022-08-16 13:59] LABS: Glucose Point of Care 199 mg/dl (65-105)
[2022-08-16 16:48] LABS: Glucose Point of Care 204 mg/dl (65-105)
[2022-08-16] MEDS: MONTELUKAST SODIUM 10 MG TABLET PO (20:28)
[2022-08-16] MEDS: FERROUS SULFATE 324 MG TABLET PO (20:28)
[2022-08-16] MEDS: SIMVASTATIN 20 MG TABLET 40 MG PO (20:28)
[2022-08-16] MEDS: traZODone HCL 50 MG TABLET PO (20:34)
[2022-08-16 21:51] LABS: Vancomycin Trough 21.1 ug/mL (10.0-20.0)
[2022-08-16] MEDS: ACETAMINOPHEN 500 MG TABLET PO (22:27)
[2022-08-17] MEDS: SODIUM CHLORIDE 0.45% 1,000 ML 70 ML IV CONT ×2 (03:46→20:13)
[2022-08-17 05:38] VITALS: PULSE 68
[2022-08-17] MEDS: METOPROLOL TARTRATE 25 MG TABLET PO ×3 (05:38→21:32)
[2022-08-17 05:54] VITALS: BP 145/66; PULSE 63; RESP 14; TEMP 36.1; O2SAT 99
[2022-08-17 07:38] LABS: Glucose Point of Care 225 mg/dl (65-105)
[2022-08-17] MEDS: INSULIN ASPART (*BKC) 100 UNITS/ML SUB-Q ×2 (08:33→12:02)
[2022-08-17] MEDS: EZETIMIBE 10 MG TABLET PO (08:34)
[2022-08-17] MEDS: FUROSEMIDE 40 MG TABLET PO (08:34)
[2022-08-17] MEDS: PARoxetine 20 MG TABLET 40 MG PO (08:34)
[2022-08-17] MEDS: CALCIUM CARBONATE (OSCAL) 500 MG TABLET PO ×2 (08:34→17:41)
[2022-08-17] MEDS: MAGNESIUM OXIDE 400 MG TABLET PO (08:35)
[2022-08-17] MEDS: EMPAGLIFLOZIN 10 MG TABLET PO (08:35)
[2022-08-17] MEDS: PANTOPRAZOLE 40 MG TABLET PO (08:35)
[2022-08-17] MEDS: MECLIZINE HCL 12.5 MG TABLET PO ×2 (08:35→21:31)
[2022-08-17] MEDS: ENOXAPARIN 30 MG/0.3 ML SYRINGE SUB-Q (08:35)
[2022-08-17] MEDS: ASPIRIN 81 MG ENTERIC TABLET PO (08:35)
[2022-08-17] MEDS: diphenhydrAMINE HCl CAP 25 MG CAPSULE PO ×2 (08:43→17:43)
--- NOTE | 2022-08-17 09:43 | PM.IMPN ---
Progress Note: A&P Assessment and Plan (1) Cellulitis of foot, left: Code(s): L03.116 - Cellulitis of left lower limb Status: Acute Assessment and Plan: Postop day 1 from I&D of left 5th toe abscess, antibiotics changed to IV doxycycline and Flagyl, continue Suspect osteomyelitis, follow-up biopsy and cultures Appreciate surgery consultation Plan DVT prophylaxis with Lovenox GI prophylaxis with PPI Code status full code Subjective Date/time seen: 08/17/22 09:43 Interval history: No overnight events noted. No chest pain or shortness of breath. No nausea, vomiting or diarrhea. No fevers or chills. Postop day 1 from left foot abscess I&D, doing well, pain controlled. No bowel movements yet. Review of Systems Review of Systems: 12 point review of systems was assessed and was negative except as noted in the HPI Exam Narrative: General: No acute distress, alert and oriented per baseline HEENT: Atraumatic, normocephalic, mucous membranes moist CV: Regular rate and rhythm, S1, S2 Lungs: Clear to auscultation bilaterally, no rales or crackles noted, no wheezes, good air entry Abdomen: Soft, nontender, nondistended Extremities: Normal to inspection, left foot wrapped, some blood on dressing Skin: No rashes noted, no lesions or wounds seen Psych: Euthymic, normal affect Objective Data Vital Signs Vital Signs: Vital Signs - 24 hr 08/16/22 13:35 08/16/22 13:50 08/16/22 14:05 Temperature 98.1 F Pulse Rate 71 63 60 Respiratory Rate 12 16 14 Blood Pressure 134/87 149/73 H 149/54 H Pulse Oximetry 100 100 100 Oxygen Delivery Simple Face Mask Simple Face Mask Room Air Oxygen Flow Rate 6 6 08/16/22 14:20 08/16/22 14:40 08/16/22 14:55 Temperature 97.4 F L 96.4 F L Pulse Rate 65 60 61 Respiratory Rate 18 18 16 Blood Pressure 134/52 L 129/50 L 133/66 Pulse Oximetry 95 97 96 Oxygen Delivery Room Air Oxygen Flow Rate 08/16/22 15:25 08/16/22 16:39 08/16/22 19:46 Temperature 97.7 F 96.8 F L Pulse Rate 60 67 Respiratory Rate 14 16 Blood Pressure 110/65 126/46 L Pulse Oximetry 97 98 Oxygen Delivery Room Air Oxygen Flow Rate 08/16/22 21:00 08/16/22 21:53 08/17/22 05:38 Temperature 96.9 F L Pulse Rate 65 66 68 Respiratory Rate 14 Blood Pressure 118/56 L Pulse Oximetry 100 Oxygen Delivery Oxygen Flow Rate 08/17/22 05:54 08/17/22 08:01 Temperature 96.9 F L Pulse Rate 63 Respiratory Rate 14 Blood Pressure 145/66 H Pulse Oximetry 99 Oxygen Delivery Room Air Oxygen Flow Rate Intake/Output Intake/Output: Intake & Output 08/14/22 08/15/22 08/16/22 08/17/22 23:59 23:59 23:59 23:59 Intake Total 2340 2260 1840 1858 Output Total 450 400 840 Balance 1890 1860 1000 1858 Meds/Results Medications: Active Medications Generic Name Dose Route Start Last Admin Trade Name Freq PRN Reason Stop Dose Admin Acetaminophen 500 mg 08/11/22 19:13 08/16/22 22:27 Acetaminophen 500 Mg Tablet PO 500 mg Q6H PRN Administration Mild Pain (1-3) Hydrocodone Bitart/Acetaminophen 1 tab 08/16/22 14:27 Hydrocodone/Acetaminophen (*Crx) 5-325 Mg Tablet PO Q6H PRN Pain Rated 4-6 Aspirin 81 mg 08/12/22 09:00 08/17/22 08:35 Aspirin 81 Mg Enteric Tablet PO 81 mg DAILY MELANIE Administration Calcium Carbonate 500 mg 08/15/22 09:00 08/17/22 08:34 Calcium Carbonate (Oscal) 500 Mg Tablet PO 500 mg BID MELANIE Administration Dextrose 12.5 gm 08/11/22 19:09 Dextrose 50% 25 Gm/50 Ml Syringe IV PUSH PRN PRN Hypoglycemia Protocol Diphenhydramine HCl 25 mg 08/14/22 18:53 08/17/22 08:43 Diphenhydramine Hcl Cap 25 Mg Capsule PO 25 mg Q6H PRN Administration Itching Ezetimibe 10 mg 08/12/22 09:00 08/17/22 08:34 Ezetimibe 10 Mg Tablet PO 10 mg DAILY MELANIE Administration Empagliflozin 10 mg 08/12/22 09:00 08/17/22 08:35 Empagliflozin 10 Mg Tablet PO 10 mg
--- NOTE | 2022-08-17 09:59 | WPDANESPN ---
Anes - Prog Note Post-Op Date/Time: 08/17/22 09:59 Cardiovascular status: normal Respiratory status: normal Airway patency: baseline Mental status: baseline Post-Op hydration status: normal Vital Signs: Last Vital Signs Temp 96.9 F L 08/17/22 05:54 Pulse 63 08/17/22 05:54 Resp 14 08/17/22 05:54 BP 145/66 H 08/17/22 05:54 Pulse Ox 99 08/17/22 05:54 O2 Del Method Room Air 08/17/22 09:47 O2 Flow Rate 6 08/16/22 13:50 Pain Score (VAS): 0 I/O: Intake & Output 08/16/22 08/17/22 08/17/22 23:59 07:59 15:59 Intake Total 440 1500 358 Output Total 40 Balance 400 1500 358 Laboratory Tests 08/16/22 06:39 08/16/22 06:39 08/16/22 08/16/22 08/16/22 11:15 13:44 16:45 POC Capillary Glucose 196 H 199 H 204 H Vancomycin Trough 08/16/22 08/17/22 20:48 07:30 POC Capillary Glucose 225 H Vancomycin Trough 21.1 H Microbiology 08/16/22 13:11 Foot Left Anaerobic Culture - Preliminary 08/11/22 13:38 Foot Left Anaerobic Culture - Final Prevotella species 08/11/22 13:38 Foot Left Aerobic Culture - Final Staphylococcus aureus 08/11/22 14:57 Blood Blood Culture - Final 08/11/22 14:57 Blood Blood Culture - Final Post-procedural complaints: none Patient Feedback: Patient satisfied with anesthetic care.
[2022-08-17] MEDS: DOXYCYCLINE 100 MG/NS 100 ML 100 MG/100 ML BAG IVPB ×2 (10:49→21:31)
[2022-08-17 11:31] LABS: Glucose Point of Care 273 mg/dl (65-105)
[2022-08-17 14:00] VITALS: BP 126/46; PULSE 73; RESP 18; TEMP 36.6; O2SAT 100
[2022-08-17] MEDS: metroNIDAZOLE 500 MG/ISO 100ML 500 MG/100 ML BAG 100 MG IVPB ×2 (14:20→21:33)
--- NOTE | 2022-08-17 15:46 | PM.PNGS ---
Progress Note: A&P Assessment and Plan (1) Cellulitis of foot, left: Code(s): L03.116 - Cellulitis of left lower limb Status: Acute Assessment and Plan: The wound over the dorsal aspect of the left 5th toe is clean without any purulent drainage. The redness surrounding the joint on the dorsal distal forefoot has completely resolved. The wound was re-dressed but the packing was removed and not replaced. Will continue the IV antibiotics. It may be beneficial to obtain an Infectious Disease consult to get recommendations on the length of IV antibiotic therapy given that she likely has osteomyelitis of the left 5th toe if we think we can salvage the toe. Otherwise amputation of the toe would also be another option. Subjective Subjective Date/Time Seen: 08/17/22 15:46 Post Op day: 1 ( Status post incision and drainage of left 5th toe abscess) Patient reports: no new complaints and pain is less Interval history: Patient is doing well today. She has no complaints in regards to her left foot. She was able to put weight on the heel to transfer today. She continues to receive IV antibiotics. Exam Extrem: Other: The left foot dressing was removed at the bedside. The was old blood on the dressing and on examination the wound was clean without any active bleeding. There is no purulent drainage. The redness extending from the left 5th toe proximal and dorsal aspect of the left forefoot had completely resolved. The bone is still exposed at the base of the incision but there is no necrotic tissue. Objective Data Vital Signs Vital Signs: Vital Signs - 24 hr 08/16/22 16:39 08/16/22 19:46 08/16/22 21:00 Temperature 36.0 C L Pulse Rate 67 65 Respiratory Rate 16 Blood Pressure 126/46 L Pulse Oximetry 98 Oxygen Delivery Room Air 08/16/22 21:53 08/17/22 05:38 08/17/22 05:54 Temperature 36.1 C L 36.1 C L Pulse Rate 66 68 63 Respiratory Rate 14 14 Blood Pressure 118/56 L 145/66 H Pulse Oximetry 100 99 Oxygen Delivery 08/17/22 08:01 08/17/22 09:47 08/17/22 14:00 Temperature 36.6 C Pulse Rate 73 Respiratory Rate 18 Blood Pressure 126/46 L Pulse Oximetry 100 Oxygen Delivery Room Air Room Air Intake/Output Intake/Output: Intake & Output 01/08/15/22 08/16/22 08/17/22 23:59 23:59 23:59 23:59 Intake Total 2340 2260 1840 2298 Output Total 450 400 840 Balance 1890 1860 1000 2298 Meds/Results Medications: Active Medications Generic Name Dose Route Start Last Admin Trade Name Freq PRN Reason Stop Dose Admin Acetaminophen 500 mg 08/11/22 19:13 08/16/22 22:27 Acetaminophen 500 Mg Tablet PO 500 mg Q6H PRN Administration Mild Pain (1-3) Hydrocodone Bitart/Acetaminophen 1 tab 08/16/22 14:27 Hydrocodone/Acetaminophen (*Crx) 5-325 Mg Tablet PO Q6H PRN Pain Rated 4-6 Aspirin 81 mg 08/12/22 09:00 08/17/22 08:35 Aspirin 81 Mg Enteric Tablet PO 81 mg DAILY MELANIE Administration Calcium Carbonate 500 mg 08/15/22 09:00 08/17/22 08:34 Calcium Carbonate (Oscal) 500 Mg Tablet PO 500 mg BID MELANIE Administration Dextrose 12.5 gm 08/11/22 19:09 Dextrose 50% 25 Gm/50 Ml Syringe IV PUSH PRN PRN Hypoglycemia Protocol Diphenhydramine HCl 25 mg 08/14/22 18:53 08/17/22 08:43 Diphenhydramine Hcl Cap 25 Mg Capsule PO 25 mg Q6H PRN Administration Itching Ezetimibe 10 mg 08/12/22 09:00 08/17/22 08:34 Ezetimibe 10 Mg Tablet PO 10 mg DAILY MELANIE Administration Empagliflozin 10 mg 08/12/22 09:00 08/17/22 08:35 Empagliflozin 10 Mg Tablet PO 10 mg DAILY MELANIE Administration Enoxaparin Sodium 30 mg 08/12/22 09:00 08/17/22 08:35 Enoxaparin 30 Mg/0.3 Ml Syringe SUB-Q 30 mg DAILY MELANIE Administration Ferrous Sulfate 324 mg 08/11/22 21:00 08/16/22 20:28 Ferrous Sulfate 324 Mg Tablet PO 09/10/22 20:59 324 mg HS MELANIE Administration Fluticasone Propionate 1
[2022-08-17 16:31] LABS: Glucose Point of Care 138 mg/dl (65-105)
[2022-08-17 20:00] VITALS: PULSE 73; RESP 18; O2SAT 100
[2022-08-17 20:35] LABS: Glucose Point of Care 227 mg/dl (65-105)
[2022-08-17] MEDS: MONTELUKAST SODIUM 10 MG TABLET PO (21:31)
[2022-08-17] MEDS: SIMVASTATIN 20 MG TABLET 40 MG PO (21:31)
[2022-08-17] MEDS: traZODone HCL 50 MG TABLET PO (21:31)
[2022-08-17] MEDS: FERROUS SULFATE 324 MG TABLET PO (21:31)
[2022-08-17 21:32] VITALS: BP 141/63; PULSE 73; PULSE 74; RESP 16; TEMP 37.1; O2SAT 98
[2022-08-17] MEDS: ACETAMINOPHEN 500 MG TABLET PO (21:43)
[2022-08-18] VITALS (7 sets, daily range): BP systolic 115–134; BP diastolic 49–66; PULSE 57–66; RESP 16–20; TEMP 36.1–36.5; O2SAT 98–99
[2022-08-18] MEDS: HYDROcodone/acetaminophen (*CRX) 5-325 MG TABLET 1 TAB PO ×3 (00:27→21:51)
[2022-08-18] MEDS: METOPROLOL TARTRATE 25 MG TABLET PO ×3 (05:47→21:32)
[2022-08-18] MEDS: metroNIDAZOLE 500 MG/ISO 100ML 500 MG/100 ML BAG 100 MG IVPB ×3 (05:47→23:00)
[2022-08-18 06:37] LABS: Estimated CRCL calculation 26 ml/min; Estimated Glomerular Filt Rate 36
[2022-08-18 08:10] LABS: Glucose Point of Care 169 mg/dl (65-105)
[2022-08-18] MEDS: diphenhydrAMINE HCl CAP 25 MG CAPSULE PO ×2 (08:36→21:28)
[2022-08-18] MEDS: ENOXAPARIN 30 MG/0.3 ML SYRINGE SUB-Q (08:37)
[2022-08-18] MEDS: CALCIUM CARBONATE (OSCAL) 500 MG TABLET PO ×2 (08:37→16:48)
[2022-08-18] MEDS: EZETIMIBE 10 MG TABLET PO (08:37)
[2022-08-18] MEDS: FUROSEMIDE 40 MG TABLET PO (08:37)
[2022-08-18] MEDS: PARoxetine 20 MG TABLET 40 MG PO (08:37)
[2022-08-18] MEDS: MECLIZINE HCL 12.5 MG TABLET PO ×3 (08:38→21:31)
[2022-08-18] MEDS: EMPAGLIFLOZIN 10 MG TABLET PO (08:38)
[2022-08-18] MEDS: DOXYCYCLINE 100 MG/NS 100 ML 100 MG/100 ML BAG IVPB ×2 (08:38→21:36)
[2022-08-18] MEDS: PANTOPRAZOLE 40 MG TABLET PO (08:38)
[2022-08-18] MEDS: MAGNESIUM OXIDE 400 MG TABLET PO (08:38)
[2022-08-18] MEDS: ASPIRIN 81 MG ENTERIC TABLET PO (08:38)
[2022-08-18] MEDS: SODIUM CHLORIDE 0.45% 1,000 ML 70 ML IV CONT (10:35)
[2022-08-18 11:19] LABS: Glucose Point of Care 213 mg/dl (65-105)
[2022-08-18] MEDS: INSULIN ASPART (*BKC) 100 UNITS/ML SUB-Q (11:57)
--- NOTE | 2022-08-18 14:16 | PM.PNGS ---
Progress Note: A&P Assessment and Plan (1) Cellulitis of foot, left: Code(s): L03.116 - Cellulitis of left lower limb Status: Acute Assessment and Plan: The left 5th toe wound is healing well. There is still no purulent drainage and there is only minimal redness of the 5th toe, which has improved, with all the more proximal redness resolved. Will continue with gauze dressing changes and consider adding silver gel for wound care. Discussed with the Hospitalist our recommendation of consulting the ID pharmacist for their opinion on length of IV antibiotic therapy given the likely osteomyelitis of the left 5th toe. I did discuss surgical versus nonoperative options with the patient today, as the other option would be left 5th toe amputation rather than long-term IV antibiotics. She would prefer to try to treating with IV antibiotics at this time. Plan I have discussed the patient's case and plan of care with Dr. Dozier. Subjective Subjective Date/Time Seen: 08/18/22 12:46 Post Op day: 2 (Incision and drainage of left forefoot and 5th toe abscess) Patient reports: no new complaints, pain is less and afebrile Interval history: Patient sitting in the bed and doing well today. She has no specific complaints at this time in regard to her left foot. Exam Const: General: comfortable and no acute distress Orientation/consciousness: patient oriented x3 Extrem: Other: The left foot dressing was removed at the bedside. There was old bloody drainage on the gauze dressing. There was very slight bloody oozing coming from the distal corner of the incision at the level of the dermis, which slowed down with holding pressure. There is no purulent drainage. There is some dull redness of the left 5th toe but no extending proximal redness. There appears to be a thin film of yellow tissue covering the bone but no necrotic tissue. Psych: Mental Status: mental status grossly normal Insight: Good insight present (Psych) Objective Data Vital Signs Vital Signs: Vital Signs - 24 hr 08/17/22 20:00 08/17/22 21:32 08/17/22 21:32 Temperature 98.7 F Pulse Rate 73 73 74 Respiratory Rate 18 16 Blood Pressure 141/63 H Pulse Oximetry 100 98 Oxygen Delivery Room Air 08/18/22 04:57 08/18/22 05:47 08/18/22 13:32 Temperature 97.7 F Pulse Rate 57 L 66 66 Respiratory Rate 16 Blood Pressure 134/54 L Pulse Oximetry 98 Oxygen Delivery 08/18/22 13:49 08/18/22 14:00 Temperature 96.9 F L Pulse Rate 62 66 Respiratory Rate 20 Blood Pressure 115/49 L 116/55 L Pulse Oximetry 99 Oxygen Delivery Intake/Output Intake/Output: Intake & Output 08/15/22 08/16/22 08/17/22 08/18/22 23:59 23:59 23:59 23:59 Intake Total 2260 1840 3738 2470 Output Total 400 840 0 600 Balance 1860 1000 3738 1870 Meds/Results Medications: Active Medications Generic Name Dose Route Start Last Admin Trade Name Freq PRN Reason Stop Dose Admin Acetaminophen 500 mg 08/11/22 19:13 08/17/22 21:43 Acetaminophen 500 Mg Tablet PO 500 mg Q6H PRN Administration Mild Pain (1-3) Hydrocodone Bitart/Acetaminophen 1 tab 08/16/22 14:27 08/18/22 08:36 Hydrocodone/Acetaminophen (*Crx) 5-325 Mg Tablet PO 1 tab Q6H PRN Administration Pain Rated 4-6 Aspirin 81 mg 08/12/22 09:00 08/18/22 08:38 Aspirin 81 Mg Enteric Tablet PO 81 mg DAILY MELANIE Administration Calcium Carbonate 500 mg 08/15/22 09:00 08/18/22 08:37 Calcium Carbonate (Oscal) 500 Mg Tablet PO 500 mg BID MELANIE Administration Dextrose 12.5 gm 08/11/22 19:09 Dextrose 50% 25 Gm/50 Ml Syringe IV PUSH PRN PRN Hypoglycemia Protocol Diphenhydramine HCl 25 mg 08/14/22 18:53 08/18/22 08:36 Diphenhydramine Hcl Cap 25 Mg Capsule PO 25 mg Q6H PRN Administration Itching Ezetimibe 10 mg 08/12/22 09:00 08/18/22 08:37 Ezetimibe 10 Mg Tablet PO 10 mg DAILY MELANIE Administration Empagliflozin 10 mg
--- NOTE | 2022-08-18 14:26 | PM.IMPN ---
Progress Note: A&P Assessment and Plan (1) Cellulitis of foot, left: Code(s): L03.116 - Cellulitis of left lower limb Status: Acute Assessment and Plan: Postop day 1 from I&D of left 5th toe abscess, antibiotics changed to IV doxycycline and Flagyl, continue Suspect osteomyelitis, follow-up biopsy and cultures Appreciate surgery consultation 08/18/2022 interval history:?patient had MRI of the foot and it showed?Prominent erosions in several phalanges as well as at the head of the first metatarsal. This appears chronic at the first metatarsophalangeal joint with imaging features on CT and MRI most consistent with gout, and likely also at the third proximal interphalangeal joint. At the fifth distal interphalangeal joint there is a prominent soft tissue edema and an associated loculated fluid collection which is more suspicious for either infection or secondary superinfection with abscess and osteomyelitis. Appearance at the second distal interphalangeal joint and distal phalanx lies in the spectrum between these 2 appearances, consistent with gout but equivocal for secondary superinfection. on 08/16 Patient had a IND of the left 5th toe and surgery concern for osteomyelitis initial wound culture collected is growing Staph aureus not MRSA, and Prevotella species pansensitive being treated with doxycycline and Flagyl, repeat I&D of the foot is growing staph aureus pending sensitivity, currently treated with doxycycline and Flagyl, now concern for osteomyelitis will discuss with ID pharmacist and further recommendation to follow, states the pain in the foot is persist denies any fever or chills. Plan DVT prophylaxis with Lovenox GI prophylaxis with PPI Code status full code Subjective Date/time seen: 08/18/22 14:26 08/18/2022 interval history:?patient had MRI of the foot and it showed?Prominent erosions in several phalanges as well as at the head of the first metatarsal. This appears chronic at the first metatarsophalangeal joint with imaging features on CT and MRI most consistent with gout, and likely also at the third proximal interphalangeal joint. At the fifth distal interphalangeal joint there is a prominent soft tissue edema and an associated loculated fluid collection which is more suspicious for either infection or secondary superinfection with abscess and osteomyelitis. Appearance at the second distal interphalangeal joint and distal phalanx lies in the spectrum between these 2 appearances, consistent with gout but equivocal for secondary superinfection. on 08/16 Patient had a IND of the left 5th toe and surgery concern for osteomyelitis initial wound culture collected is growing Staph aureus not MRSA, and Prevotella species pansensitive being treated with doxycycline and Flagyl, repeat I&D of the foot is growing staph aureus pending sensitivity, currently treated with doxycycline and Flagyl, now concern for osteomyelitis will discuss with ID pharmacist and further recommendation to follow, states the pain in the foot is persist denies any fever or chills. Objective Data Vital Signs Vital Signs: Vital Signs - 24 hr 08/17/22 20:00 08/17/22 21:32 08/17/22 21:32 Temperature 98.7 F Pulse Rate 73 73 74 Respiratory Rate 18 16 Blood Pressure 141/63 H Pulse Oximetry 100 98 Oxygen Delivery Room Air 08/18/22 04:57 08/18/22 05:47 08/18/22 13:32 Temperature 97.7 F Pulse Rate 57 L 66 66 Respiratory Rate 16 Blood Pressure 134/54 L Pulse Oximetry 98 Oxygen Delivery 08/18/22 13:49 08/18/22 14:00 Temperature 96.9 F L Pulse Rate 62 66 Respiratory Rate 20 Blood Pressure 115/49 L 116/55 L Pulse Oximetry 99 Oxygen Delivery Intake/Output Intake/Output: Intake & Output 08/15/22 08/16/22 08/17/22 08/18/22 23:59 23:59 23:59 23:59 Intake Total 2260 1840 3738 2470 Output Total 400 840 0 600 Balance 1860 1000 3738 1870 Meds/Results Medications: Active Medications Generic N
--- NOTE | 2022-08-18 14:49 | PCPTNOTE ---
Attempted to see patient for Physical Therapy this afternoon. Patient stated that she was too tired, did not feel good, her L foot hurt, and she did not want to do therapy today. RN notified.
--- NOTE | 2022-08-18 16:13 | PCPTNOTE ---
I entered the treatment clarification order for the reeval that was done yesterday by another PT, from her clinical summary.
[2022-08-18 16:22] LABS: Glucose Point of Care 182 mg/dl (65-105)
[2022-08-18] MEDS: FERROUS SULFATE 324 MG TABLET PO (21:28)
[2022-08-18] MEDS: SIMVASTATIN 20 MG TABLET 40 MG PO (21:31)
[2022-08-18] MEDS: MONTELUKAST SODIUM 10 MG TABLET PO (21:31)
[2022-08-18] MEDS: traZODone HCL 50 MG TABLET PO (21:31)
[2022-08-18 22:10] LABS: Glucose Point of Care 256 mg/dl (65-105)
[2022-08-19] MEDS: SODIUM CHLORIDE 0.45% 1,000 ML 70 ML IV CONT (04:58)
[2022-08-19 05:39] VITALS: PULSE 62
[2022-08-19] MEDS: metroNIDAZOLE 500 MG/ISO 100ML 500 MG/100 ML BAG 100 MG IVPB ×3 (05:39→23:27)
[2022-08-19] MEDS: MECLIZINE HCL 12.5 MG TABLET PO ×3 (05:39→21:49)
[2022-08-19] MEDS: HYDROcodone/acetaminophen (*CRX) 5-325 MG TABLET 1 TAB PO ×3 (05:39→18:29)
[2022-08-19] MEDS: METOPROLOL TARTRATE 25 MG TABLET PO ×3 (05:39→21:49)
[2022-08-19 06:00] VITALS: BP 132/66; PULSE 65; RESP 20; TEMP 36.7; O2SAT 94
[2022-08-19 06:19] LABS: Hematocrit 30.1 % (37.0-47.0); Hemoglobin 9.6 g/dL (12.0-15.0); Mean Corpuscular HGB Conc 31.9 g/dl (32-36); Mean Corpuscular Volume 94.1 fl (80-100); Mean Platelet Volume 8.6 fl (7.4-10.4); Platelet Count Result 217 k/mm3 (150-375); Red Cell Distribution Width 11.9 % (11.5-14.5); White Blood Count 4.8 K/mm3 (4.5-10.0)
[2022-08-19 06:36] LABS: Anion Gap 2 mmol/L (8-16); Blood Urea Nitrogen 40 mg/dL (7-17); Calcium 8.2 mg/dL (8.4-10.2); Carbon Dioxide 33 mmol/L (22-30); Chloride 99 mmol/L (98-107); Estimated CRCL calculation 24 ml/min; Estimated Glomerular Filt Rate 33; Glucose 164 mg/dL (65-110); Magnesium 1.6 mg/dL (1.6-2.3); Potassium 4.4 mmol/L (3.4-5.0); Sodium 134 mmol/L (137-145)
[2022-08-19 07:37] LABS: Glucose Point of Care 154 mg/dl (65-105)
[2022-08-19] MEDS: DOXYCYCLINE 100 MG/NS 100 ML 100 MG/100 ML BAG IVPB ×2 (08:29→21:49)
[2022-08-19] MEDS: diphenhydrAMINE HCl CAP 25 MG CAPSULE PO ×2 (08:29→17:19)
[2022-08-19] MEDS: ENOXAPARIN 30 MG/0.3 ML SYRINGE SUB-Q (08:30)
[2022-08-19] MEDS: ASPIRIN 81 MG ENTERIC TABLET PO (08:30)
[2022-08-19] MEDS: PARoxetine 20 MG TABLET 40 MG PO (08:30)
[2022-08-19] MEDS: MAGNESIUM OXIDE 400 MG TABLET PO (08:30)
[2022-08-19] MEDS: PANTOPRAZOLE 40 MG TABLET PO (08:31)
[2022-08-19] MEDS: EMPAGLIFLOZIN 10 MG TABLET PO (08:31)
[2022-08-19] MEDS: EZETIMIBE 10 MG TABLET PO (08:31)
[2022-08-19] MEDS: CALCIUM CARBONATE (OSCAL) 500 MG TABLET PO ×2 (08:31→17:18)
[2022-08-19] MEDS: FUROSEMIDE 40 MG TABLET PO (08:31)
[2022-08-19] MEDS: FLUTICASONE PROPIONATE 0.05% NA SPR 16 GM BTL (*BKC) 1 SPRAY NASAL ×2 (08:49→22:09)
[2022-08-19] MEDS: SILVERGEL (ELTA) 45 ML 1 APPLIC TOPICAL (11:13)
--- NOTE | 2022-08-19 11:31 | PC.NURSE ---
Varsha at bedside to do dressing change left foot. patient c/o pain, varsha stated ok to give norco a few minutes early. norco given. dressing change performed by Varsha. patient tolerated fair.
[2022-08-19 11:33] LABS: Glucose Point of Care 215 mg/dl (65-105)
[2022-08-19] MEDS: INSULIN ASPART (*BKC) 100 UNITS/ML SUB-Q (11:54)
--- NOTE | 2022-08-19 12:45 | PM.PNGS ---
Progress Note: A&P Assessment and Plan (1) Cellulitis of foot, left: Code(s): L03.116 - Cellulitis of left lower limb Status: Acute Assessment and Plan: The left 5th toe wound is healing well following I&D. Will continue with daily dressing changes and add silver gel. There is only localized redness of the left 5th toe, but the more proximal redness on the foot has resolved. Intraoperative wound cx growing staphylococcus aureus with sensitivities resulted. Currently on IV doxycycline and metronidazole, cx shows sensitivity to tetracyclines. Recommend ID pharmacy consult for IV antibiotic recommendations for the osteomyelitis, which Hospitalist is coordinating. She will need a PICC line and further discharge planning once they have decided on the specifics/length of the IV antibiotics. Patient would prefer to try the long course of IV antibiotics at this time rather than amputation of the left 5th toe. Plan I have discussed the patient's case and plan of care with Dr. Dozier. Subjective Subjective Date/Time Seen: 08/19/22 11:45 Post Op day: 3 (Incision and drainage of left forefoot and 5th toe abscess) Patient reports: still having pain (in the left 5th toe that is being controlled with the [place]) and afebrile Interval history: Patient is seen today and doing well. She is still having pain in her left 5th toe that comes and goes, but feels like a throbbing pain. This has been controlled with the [place]. No other complaints at this time. Review of Systems Review of Systems: All systems reviewed & are unremarkable except as noted in HPI and below Exam Const: General: no acute distress and awake Orientation/consciousness: patient oriented x3 Extrem: Other: The left foot dressing was removed at the bedside. There was old bloody drainage on the gauze dressing. The wound has some yellow slough in the base of the wound bed but also a small area of granulation tissue noted. No purulent drainage or necrotic tissue. There is still localized redness of the 5th toe but no extending proximal redness onto the foot. No edema. Objective Data Vital Signs Vital Signs: Vital Signs - 24 hr 08/18/22 13:32 08/18/22 13:49 08/18/22 14:00 Temperature 96.9 F L Pulse Rate 66 62 66 Respiratory Rate 20 Blood Pressure 115/49 L 116/55 L Pulse Oximetry 99 Oxygen Delivery 08/18/22 21:32 08/18/22 20:00 08/18/22 22:00 Temperature 97.7 F Pulse Rate 65 65 Respiratory Rate 18 Blood Pressure 117/66 Pulse Oximetry 99 Oxygen Delivery Room Air 08/19/22 05:39 08/19/22 06:00 Temperature 98.1 F Pulse Rate 62 65 Respiratory Rate 20 Blood Pressure 132/66 Pulse Oximetry 94 Oxygen Delivery Intake/Output Intake/Output: Intake & Output 08/16/22 08/17/22 08/18/22 08/19/22 23:59 23:59 23:59 23:59 Intake Total 1840 3738 3010 2260 Output Total 840 0 600 Balance 1000 3738 2410 2260 Meds/Results Medications: Active Medications Generic Name Dose Route Start Last Admin Trade Name Freq PRN Reason Stop Dose Admin Acetaminophen 500 mg 08/11/22 19:13 08/17/22 21:43 Acetaminophen 500 Mg Tablet PO 500 mg Q6H PRN Administration Mild Pain (1-3) Hydrocodone Bitart/Acetaminophen 1 tab 08/16/22 14:27 08/19/22 11:14 Hydrocodone/Acetaminophen (*Crx) 5-325 Mg Tablet PO 1 tab Q6H PRN Administration Pain Rated 4-6 Aspirin 81 mg 08/12/22 09:00 08/19/22 08:30 Aspirin 81 Mg Enteric Tablet PO 81 mg DAILY MELANIE Administration Calcium Carbonate 500 mg 08/15/22 09:00 08/19/22 08:31 Calcium Carbonate (Oscal) 500 Mg Tablet PO 500 mg BID MELANIE Administration Dextrose 12.5 gm 08/11/22 19:09 Dextrose 50% 25 Gm/50 Ml Syringe IV PUSH PRN PRN Hypoglycemia Protocol Diphenhydramine HCl 25 mg 08/14/22 18:53 08/19/22 08:29 Diphenhydramine Hcl Cap 25 Mg Capsule PO 25 mg Q6H PRN Administration Itching Ezetimibe 10 mg 08/12/22 09:00
--- NOTE | 2022-08-19 13:54 | PCOTNOTE ---
Attempted to see patient this pm, however patient refused. Pt reported pain upon entering and stated, Honey, I don't feel like it.
[2022-08-19 14:00] VITALS: BP 120/61; PULSE 70; RESP 20; TEMP 36.1; O2SAT 97
[2022-08-19 14:03] VITALS: PULSE 70
--- NOTE | 2022-08-19 15:38 | PM.IMPN ---
Progress Note: A&P Assessment and Plan (1) Cellulitis of foot, left: Code(s): L03.116 - Cellulitis of left lower limb Status: Acute Assessment and Plan: Postop day 1 from I&D of left 5th toe abscess, antibiotics changed to IV doxycycline and Flagyl, continue Suspect osteomyelitis, follow-up biopsy and cultures Appreciate surgery consultation 08/19/2022 interval history:?patient had MRI of the foot and it showed?Prominent erosions in several phalanges as well as at the head of the first metatarsal. This appears chronic at the first metatarsophalangeal joint with imaging features on CT and MRI most consistent with gout, and likely also at the third proximal interphalangeal joint. At the fifth distal interphalangeal joint there is a prominent soft tissue edema and an associated loculated fluid collection which is more suspicious for either infection or secondary superinfection with abscess and osteomyelitis. Appearance at the second distal interphalangeal joint and distal phalanx lies in the spectrum between these 2 appearances, consistent with gout but equivocal for secondary superinfection. on 08/16 Patient had a IND of the left 5th toe and surgery concern for osteomyelitis initial wound culture collected is growing Staph aureus not MRSA, and Prevotella species pansensitive being treated with doxycycline and Flagyl, repeat I&D of the foot is growing staph aureus MSSA currently treated with doxycycline and Flagyl, now concern for osteomyelitis, today discussed with ID pharmacist, recommending ceftriaxone IV and Flagyl oral for total of 6 weeks, will discussed more in detail tomorrow and decide, and further recommendation to follow, states the pain in the foot is persist denies any fever or chills. Plan DVT prophylaxis with Lovenox GI prophylaxis with PPI Code status full code Subjective Date/time seen: 08/19/22 15:38 08/19/2022 interval history:?patient had MRI of the foot and it showed?Prominent erosions in several phalanges as well as at the head of the first metatarsal. This appears chronic at the first metatarsophalangeal joint with imaging features on CT and MRI most consistent with gout, and likely also at the third proximal interphalangeal joint. At the fifth distal interphalangeal joint there is a prominent soft tissue edema and an associated loculated fluid collection which is more suspicious for either infection or secondary superinfection with abscess and osteomyelitis. Appearance at the second distal interphalangeal joint and distal phalanx lies in the spectrum between these 2 appearances, consistent with gout but equivocal for secondary superinfection. on 08/16 Patient had a IND of the left 5th toe and surgery concern for osteomyelitis initial wound culture collected is growing Staph aureus not MRSA, and Prevotella species pansensitive being treated with doxycycline and Flagyl, repeat I&D of the foot is growing staph aureus MSSA currently treated with doxycycline and Flagyl, now concern for osteomyelitis, today discussed with ID pharmacist, recommending ceftriaxone IV and Flagyl oral for total of 6 weeks, will discussed more in detail tomorrow and decide, and further recommendation to follow, states the pain in the foot is persist denies any fever or chills. Objective Data Vital Signs Vital Signs: Vital Signs - 24 hr 08/18/22 21:32 08/18/22 20:00 08/18/22 22:00 Temperature 97.7 F Pulse Rate 65 65 Respiratory Rate 18 Blood Pressure 117/66 Pulse Oximetry 99 Oxygen Delivery Room Air 08/19/22 05:39 08/19/22 06:00 08/19/22 14:03 Temperature 98.1 F Pulse Rate 62 65 70 Respiratory Rate 20 Blood Pressure 132/66 Pulse Oximetry 94 Oxygen Delivery 08/19/22 14:00 Temperature 96.9 F L Pulse Rate 70 Respiratory Rate 20 Blood Pressure 120/61 Pulse Oximetry 97 Oxygen Delivery Intake/Output Intake/Output: Intake & Output 08/16/22 08/17/22 08/18/22 08/19/22 23:59 23:59
[2022-08-19 16:26] LABS: Glucose Point of Care 183 mg/dl (65-105)
[2022-08-19] MEDS: traZODone HCL 50 MG TABLET PO (21:48)
[2022-08-19] MEDS: SIMVASTATIN 20 MG TABLET 40 MG PO (21:48)
[2022-08-19 21:49] VITALS: PULSE 69
[2022-08-19] MEDS: FERROUS SULFATE 324 MG TABLET PO (21:49)
[2022-08-19] MEDS: MONTELUKAST SODIUM 10 MG TABLET PO (21:49)
[2022-08-19 22:00] VITALS: BP 119/91; PULSE 69; RESP 16; TEMP 36.2; O2SAT 98
[2022-08-19 22:27] LABS: Glucose Point of Care 231 mg/dl (65-105)
[2022-08-20 05:39] VITALS: BP 121/46; PULSE 68; RESP 12; TEMP 36.3; O2SAT 95
[2022-08-20 06:08] VITALS: PULSE 68
[2022-08-20] MEDS: METOPROLOL TARTRATE 25 MG TABLET PO ×3 (06:08→21:38)
[2022-08-20] MEDS: HYDROcodone/acetaminophen (*CRX) 5-325 MG TABLET 1 TAB PO ×3 (06:09→20:25)
[2022-08-20] MEDS: MECLIZINE HCL 12.5 MG TABLET PO ×3 (06:09→21:38)
[2022-08-20] MEDS: metroNIDAZOLE 500 MG/ISO 100ML 500 MG/100 ML BAG 100 MG IVPB ×3 (06:09→21:37)
[2022-08-20] MEDS: diphenhydrAMINE HCl CAP 25 MG CAPSULE PO ×3 (06:11→20:14)
[2022-08-20 07:20] LABS: Hematocrit 30.9 % (37.0-47.0); Hemoglobin 9.7 g/dL (12.0-15.0); Mean Corpuscular HGB Conc 31.4 g/dl (32-36); Mean Corpuscular Hemoglobin 29.8 pg (26-34); Mean Corpuscular Volume 94.8 fl (80-100); Mean Platelet Volume 8.9 fl (7.4-10.4); Platelet Count Result 220 k/mm3 (150-375); Red Blood Count 3.26 M/mm3 (4.2-5.4); Red Cell Distribution Width 12.2 % (11.5-14.5); White Blood Count 4.9 K/mm3 (4.5-10.0)
[2022-08-20 07:35] LABS: Anion Gap 4 mmol/L (8-16); Blood Urea Nitrogen 40 mg/dL (7-17); Carbon Dioxide 31 mmol/L (22-30); Chloride 100 mmol/L (98-107); Estimated CRCL calculation 30 ml/min; Estimated Glomerular Filt Rate 43; Glucose 173 mg/dL (65-110); Magnesium 1.6 mg/dL (1.6-2.3); Potassium 4.2 mmol/L (3.4-5.0); Sodium 135 mmol/L (137-145)
[2022-08-20 08:00] LABS: Glucose Point of Care 179 mg/dl (65-105)
[2022-08-20] MEDS: ASPIRIN 81 MG ENTERIC TABLET PO (08:26)
[2022-08-20] MEDS: MAGNESIUM OXIDE 400 MG TABLET PO (08:26)
[2022-08-20] MEDS: ENOXAPARIN 30 MG/0.3 ML SYRINGE SUB-Q (08:26)
[2022-08-20] MEDS: EZETIMIBE 10 MG TABLET PO (08:27)
[2022-08-20] MEDS: EMPAGLIFLOZIN 10 MG TABLET PO (08:27)
[2022-08-20] MEDS: FUROSEMIDE 40 MG TABLET PO (08:27)
[2022-08-20] MEDS: PARoxetine 20 MG TABLET 40 MG PO (08:27)
[2022-08-20] MEDS: CALCIUM CARBONATE (OSCAL) 500 MG TABLET PO ×2 (08:27→16:35)
[2022-08-20] MEDS: PANTOPRAZOLE 40 MG TABLET PO (08:27)
[2022-08-20] MEDS: DOXYCYCLINE 100 MG/NS 100 ML 100 MG/100 ML BAG IVPB ×2 (08:28→20:15)
[2022-08-20] MEDS: SILVERGEL (ELTA) 45 ML 1 APPLIC TOPICAL (08:28)
--- NOTE | 2022-08-20 09:22 | WPDPN ---
Progress Note: A&P Assessment and Plan (1) Diabetic foot infection: Code(s): E11.628 - Type 2 diabetes mellitus with other skin complications; L08.9 - Local infection of the skin and subcutaneous tissue, unspecified Status: Acute Assessment and Plan: The cellulitis of the left foot and 5th toe has been controlled with incision and drainage of the abscess. She continues on IV antibiotics for suspected osteomyelitis of the underlying bone. We had discussed with her amputation of the left 5th toe but she wishes to continue to attempt to save it for now. Disposition as per hospitalist team after identifying a facility that can administer IV antibiotics. Continue present wound care for the left 5th toe wound. she can follow up in our wound care clinic 2 weeks after discharge. If the wound does not heal then amputation of the left 5th toe would be recommended. Subjective Date/time seen: 08/20/22 09:22 Interval history: The patient has no complaints and the left foot is dressed. She has a postop shoe in place. Discharge disposition is awaiting placement at a facility where she had IV antibiotics. Exam Extrem: Other: The left foot wound over the left 5th toe is clean with some mild erythema but no necrotic tissue. There is no erythema extending onto the forefoot. Minimal granulation tissue was noted. Objective Data Vital Signs Vital Signs: Vital Signs - 24 hr 08/19/22 14:03 08/19/22 14:00 08/19/22 21:49 Temperature 36.1 C L Pulse Rate 70 70 69 Respiratory Rate 20 Blood Pressure 120/61 Pulse Oximetry 97 Oxygen Delivery 08/19/22 22:00 08/19/22 20:00 08/20/22 05:39 Temperature 36.2 C L 36.3 C L Pulse Rate 69 68 Respiratory Rate 16 12 Blood Pressure 119/91 H 121/46 L Pulse Oximetry 98 95 Oxygen Delivery Room Air 08/20/22 06:08 Temperature Pulse Rate 68 Respiratory Rate Blood Pressure Pulse Oximetry Oxygen Delivery Intake/Output Intake/Output: Intake & Output 08/17/22 08/18/22 08/19/22 08/20/22 23:59 23:59 23:59 23:59 Intake Total 3738 3010 2940 770 Output Total 0 600 Balance 3738 2410 2940 770 Meds/Results Medications: Active Medications Generic Name Dose Route Start Last Admin Trade Name Freq PRN Reason Stop Dose Admin Acetaminophen 500 mg 08/11/22 19:13 08/17/22 21:43 Acetaminophen 500 Mg Tablet PO 500 mg Q6H PRN Administration Mild Pain (1-3) Hydrocodone Bitart/Acetaminophen 1 tab 08/16/22 14:27 08/20/22 06:09 Hydrocodone/Acetaminophen (*Crx) 5-325 Mg Tablet PO 1 tab Q6H PRN Administration Pain Rated 4-6 Aspirin 81 mg 08/12/22 09:00 08/20/22 08:26 Aspirin 81 Mg Enteric Tablet PO 81 mg DAILY MELANIE Administration Calcium Carbonate 500 mg 08/15/22 09:00 08/20/22 08:27 Calcium Carbonate (Oscal) 500 Mg Tablet PO 500 mg BID MELANIE Administration Dextrose 12.5 gm 08/11/22 19:09 Dextrose 50% 25 Gm/50 Ml Syringe IV PUSH PRN PRN Hypoglycemia Protocol Diphenhydramine HCl 25 mg 08/14/22 18:53 08/20/22 06:11 Diphenhydramine Hcl Cap 25 Mg Capsule PO 25 mg Q6H PRN Administration Itching Ezetimibe 10 mg 08/12/22 09:00 08/20/22 08:27 Ezetimibe 10 Mg Tablet PO 10 mg DAILY MELANIE Administration Empagliflozin 10 mg 08/12/22 09:00 08/20/22 08:27 Empagliflozin 10 Mg Tablet PO 10 mg DAILY MELANIE Administration Enoxaparin Sodium 30 mg 08/12/22 09:00 08/20/22 08:26 Enoxaparin 30 Mg/0.3 Ml Syringe SUB-Q 30 mg DAILY MELANIE Administration Ferrous Sulfate 324 mg 08/11/22 21:00 08/19/22 21:49 Ferrous Sulfate 324 Mg Tablet PO 09/10/22 20:59 324 mg HS MELANIE Administration Fluticasone Propionate 1 spray 08/11/22 19:13 08/19/22 22:09 Fluticasone Propionate 0.05% Na Spr 16 Gm Btl (*Bkc) NASAL 1 spray BID PRN Administration Congestion Furosemide 40 mg 08/12/22 09:00 08/20/22 08:27 Furosemide 40 Mg Tablet PO 40 mg DAILY
--- NOTE | 2022-08-20 11:16 | PCNWS ---
Weekly nutritional screen. Patient is tolerating current diet with adequate intake. No weight loss reported. No nutritional needs at this time.
[2022-08-20 11:37] LABS: Glucose Point of Care 176 mg/dl (65-105)
[2022-08-20] MEDS: FLUTICASONE PROPIONATE 0.05% NA SPR 16 GM BTL (*BKC) 1 SPRAY NASAL ×2 (12:09→20:14)
[2022-08-20 13:39] VITALS: PULSE 78
[2022-08-20 14:00] VITALS: BP 105/43; PULSE 73; RESP 20; TEMP 36.4; O2SAT 99
--- NOTE | 2022-08-20 15:18 | PCPTNOTE ---
Patient refused treatment this afternoon. Patient up in chair prior to PT and patient transferring back in bed with nursing assist when I entered the room and refused gait and exercise.
[2022-08-20 16:20] LABS: Glucose Point of Care 213 mg/dl (65-105)
[2022-08-20] MEDS: INSULIN ASPART (*BKC) 100 UNITS/ML SUB-Q (16:35)
--- NOTE | 2022-08-20 17:25 | PM.IMPN ---
Progress Note: A&P Assessment and Plan (1) Cellulitis of foot, left: Code(s): L03.116 - Cellulitis of left lower limb Status: Acute Assessment and Plan: Postop day 1 from I&D of left 5th toe abscess, antibiotics changed to IV doxycycline and Flagyl, continue Suspect osteomyelitis, follow-up biopsy and cultures Appreciate surgery consultation 08/20/2022 interval history:?patient had MRI of the foot and it showed?Prominent erosions in several phalanges as well as at the head of the first metatarsal. This appears chronic at the first metatarsophalangeal joint with imaging features on CT and MRI most consistent with gout, and likely also at the third proximal interphalangeal joint. At the fifth distal interphalangeal joint there is a prominent soft tissue edema and an associated loculated fluid collection which is more suspicious for either infection or secondary superinfection with abscess and osteomyelitis. Appearance at the second distal interphalangeal joint and distal phalanx lies in the spectrum between these 2 appearances, consistent with gout but equivocal for secondary superinfection. on 08/16 Patient had a IND of the left 5th toe and surgery concern for osteomyelitis initial wound culture collected is growing Staph aureus not MRSA, and Prevotella species pansensitive being treated with doxycycline and Flagyl, repeat I&D of the foot is growing staph aureus MSSA currently treated with doxycycline and Flagyl, now concern for osteomyelitis, on 08/19 discussed with ID pharmacist, recommending ceftriaxone IV and Flagyl oral for total of 6 weeks, today discussed with General surgery recommending amputation of the left foot toe, antibiotics may not cure the toe, today patient agreeable to have left 5th toe amputated, patient be seen by surgery service and further recommendation to follow. Plan DVT prophylaxis with Lovenox GI prophylaxis with PPI Code status full code Subjective Date/time seen: 08/20/22 17:25 Postop day 1 from I&D of left 5th toe abscess, antibiotics changed to IV doxycycline and Flagyl, continue Suspect osteomyelitis, follow-up biopsy and cultures Appreciate surgery consultation 08/20/2022 interval history:?patient had MRI of the foot and it showed?Prominent erosions in several phalanges as well as at the head of the first metatarsal. This appears chronic at the first metatarsophalangeal joint with imaging features on CT and MRI most consistent with gout, and likely also at the third proximal interphalangeal joint. At the fifth distal interphalangeal joint there is a prominent soft tissue edema and an associated loculated fluid collection which is more suspicious for either infection or secondary superinfection with abscess and osteomyelitis. Appearance at the second distal interphalangeal joint and distal phalanx lies in the spectrum between these 2 appearances, consistent with gout but equivocal for secondary superinfection. on 08/16 Patient had a IND of the left 5th toe and surgery concern for osteomyelitis initial wound culture collected is growing Staph aureus not MRSA, and Prevotella species pansensitive being treated with doxycycline and Flagyl, repeat I&D of the foot is growing staph aureus MSSA currently treated with doxycycline and Flagyl, now concern for osteomyelitis, on 08/19 discussed with ID pharmacist, recommending ceftriaxone IV and Flagyl oral for total of 6 weeks, today discussed with General surgery recommending amputation of the left foot toe, antibiotics may not cure the toe, today patient agreeable to have left 5th toe amputated, patient be seen by surgery service and further recommendation to follow. Objective Data Vital Signs Vital Signs: Vital Signs - 24 hr 08/19/22 21:49 08/19/22 22:00 08/19/22 20:00 Temperature 97.1 F L Pulse Rate 69 69 Respiratory Rate 16 Blood Pressure 119/91 H Pulse Oximetry 98 Oxygen Delivery Room Air 08/20/22 05:39 08/20/22 06:08
[2022-08-20] MEDS: traZODone HCL 50 MG TABLET PO (20:14)
[2022-08-20] MEDS: SIMVASTATIN 20 MG TABLET 40 MG PO (20:14)
[2022-08-20] MEDS: MONTELUKAST SODIUM 10 MG TABLET PO (20:15)
[2022-08-20] MEDS: FERROUS SULFATE 324 MG TABLET PO (20:15)
[2022-08-20 20:43] VITALS: BP 121/57; PULSE 72; RESP 20; TEMP 36.6; O2SAT 98
[2022-08-20 21:38] VITALS: PULSE 72
[2022-08-20 21:46] LABS: Glucose Point of Care 251 mg/dl (65-105)
[2022-08-21 05:45] VITALS: PULSE 72
[2022-08-21] MEDS: MECLIZINE HCL 12.5 MG TABLET PO ×3 (05:45→21:27)
[2022-08-21] MEDS: METOPROLOL TARTRATE 25 MG TABLET PO ×3 (05:45→21:27)
[2022-08-21] MEDS: HYDROcodone/acetaminophen (*CRX) 5-325 MG TABLET 1 TAB PO ×3 (05:45→20:04)
[2022-08-21] MEDS: metroNIDAZOLE 500 MG/ISO 100ML 500 MG/100 ML BAG 100 MG IVPB ×3 (05:46→21:27)
[2022-08-21] MEDS: diphenhydrAMINE HCl CAP 25 MG CAPSULE PO ×3 (05:50→20:04)
[2022-08-21 06:00] VITALS: BP 133/60; PULSE 85; RESP 20; TEMP 36.5; O2SAT 99
[2022-08-21 06:54] LABS: Hematocrit 31.8 % (37.0-47.0); Hemoglobin 9.9 g/dL (12.0-15.0); Mean Corpuscular HGB Conc 31.1 g/dl (32-36); Mean Corpuscular Volume 96.4 fl (80-100); Mean Platelet Volume 8.9 fl (7.4-10.4); Platelet Count Result 230 k/mm3 (150-375); Red Cell Distribution Width 12.4 % (11.5-14.5); White Blood Count 5.6 K/mm3 (4.5-10.0)
[2022-08-21 07:07] LABS: Anion Gap 4 mmol/L (8-16); Blood Urea Nitrogen 44 mg/dL (7-17); Calcium 8.3 mg/dL (8.4-10.2); Carbon Dioxide 32 mmol/L (22-30); Chloride 96 mmol/L (98-107); Estimated CRCL calculation 26 ml/min; Estimated Glomerular Filt Rate 36; Glucose 186 mg/dL (65-110); Magnesium 1.6 mg/dL (1.6-2.3); Sodium 132 mmol/L (137-145)
[2022-08-21 07:57] LABS: Glucose Point of Care 205 mg/dl (65-105)
[2022-08-21] MEDS: INSULIN ASPART (*BKC) 100 UNITS/ML SUB-Q ×2 (08:07→11:57)
[2022-08-21] MEDS: DOXYCYCLINE 100 MG/NS 100 ML 100 MG/100 ML BAG IVPB ×2 (08:08→20:05)
[2022-08-21] MEDS: ENOXAPARIN 30 MG/0.3 ML SYRINGE SUB-Q (08:08)
[2022-08-21] MEDS: PARoxetine 20 MG TABLET 40 MG PO (08:08)
[2022-08-21] MEDS: MAGNESIUM OXIDE 400 MG TABLET PO (08:08)
[2022-08-21] MEDS: CALCIUM CARBONATE (OSCAL) 500 MG TABLET PO ×2 (08:08→16:53)
[2022-08-21] MEDS: FLUTICASONE PROPIONATE 0.05% NA SPR 16 GM BTL (*BKC) 1 SPRAY NASAL ×2 (08:08→20:07)
[2022-08-21] MEDS: EMPAGLIFLOZIN 10 MG TABLET PO (08:09)
[2022-08-21] MEDS: PANTOPRAZOLE 40 MG TABLET PO (08:09)
[2022-08-21] MEDS: SILVERGEL (ELTA) 45 ML 1 APPLIC TOPICAL (08:09)
[2022-08-21] MEDS: EZETIMIBE 10 MG TABLET PO (08:09)
[2022-08-21] MEDS: FUROSEMIDE 40 MG TABLET PO (08:09)
[2022-08-21] MEDS: ASPIRIN 81 MG ENTERIC TABLET PO (08:09)
[2022-08-21 11:41] LABS: Glucose Point of Care 209 mg/dl (65-105)
--- NOTE | 2022-08-21 12:04 | PM.IMPN ---
Progress Note: A&P Assessment and Plan (1) Cellulitis of foot, left: Code(s): L03.116 - Cellulitis of left lower limb Status: Acute Assessment and Plan: Postop day 1 from I&D of left 5th toe abscess, antibiotics changed to IV doxycycline and Flagyl, continue Suspect osteomyelitis, follow-up biopsy and cultures Appreciate surgery consultation 08/21/2022 interval history:?patient had MRI of the foot and it showed?Prominent erosions in several phalanges as well as at the head of the first metatarsal. This appears chronic at the first metatarsophalangeal joint with imaging features on CT and MRI most consistent with gout, and likely also at the third proximal interphalangeal joint. At the fifth distal interphalangeal joint there is a prominent soft tissue edema and an associated loculated fluid collection which is more suspicious for either infection or secondary superinfection with abscess and osteomyelitis. Appearance at the second distal interphalangeal joint and distal phalanx lies in the spectrum between these 2 appearances, consistent with gout but equivocal for secondary superinfection. on 08/16 Patient had a IND of the left 5th toe and surgery concern for osteomyelitis initial wound culture collected is growing Staph aureus not MRSA, and Prevotella species pansensitive being treated with doxycycline and Flagyl, repeat I&D of the foot is growing staph aureus MSSA currently treated with doxycycline and Flagyl, now concern for osteomyelitis, on 08/19 discussed with ID pharmacist, recommending ceftriaxone IV and Flagyl oral for total of 6 weeks, on 08/20 discussed with General surgery recommending amputation of the left 5th toe, antibiotics may not cure the toe, on 08/20 patient was agreeable to have left 5th toe amputated, today patient was seen by surgery service patient can be discharged and will amputation of the left 5th toe as an outpatient and will let child day care center worker know for discharge planning, and further recommendation to follow. Plan DVT prophylaxis with Lovenox GI prophylaxis with PPI Code status full code Subjective Date/time seen: 08/21/22 12:04 08/21/2022 interval history:?patient had MRI of the foot and it showed?Prominent erosions in several phalanges as well as at the head of the first metatarsal. This appears chronic at the first metatarsophalangeal joint with imaging features on CT and MRI most consistent with gout, and likely also at the third proximal interphalangeal joint. At the fifth distal interphalangeal joint there is a prominent soft tissue edema and an associated loculated fluid collection which is more suspicious for either infection or secondary superinfection with abscess and osteomyelitis. Appearance at the second distal interphalangeal joint and distal phalanx lies in the spectrum between these 2 appearances, consistent with gout but equivocal for secondary superinfection. on 08/16 Patient had a IND of the left 5th toe and surgery concern for osteomyelitis initial wound culture collected is growing Staph aureus not MRSA, and Prevotella species pansensitive being treated with doxycycline and Flagyl, repeat I&D of the foot is growing staph aureus MSSA currently treated with doxycycline and Flagyl, now concern for osteomyelitis, on 08/19 discussed with ID pharmacist, recommending ceftriaxone IV and Flagyl oral for total of 6 weeks, on 08/20 discussed with General surgery recommending amputation of the left 5th toe, antibiotics may not cure the toe, on 08/20 patient was agreeable to have left 5th toe amputated, today patient was seen by surgery service patient can be discharged and will amputation of the left 5th toe as an outpatient and will let child day care center worker know for discharge planning, and further recommendation to follow. Exam Narrative: elderly frail Patient is comfortable, NAD HEENT: eyes are clear and none icteric LUNGS:CTA HEART: RR S1S2 ABD: BS+, Soft and nontender Lower extremities: no doug
[2022-08-21 13:48] VITALS: PULSE 78
[2022-08-21 14:00] VITALS: BP 118/53; PULSE 66; RESP 20; TEMP 36.3; O2SAT 100
[2022-08-21 16:47] LABS: Glucose Point of Care 164 mg/dl (65-105)
[2022-08-21] MEDS: SIMVASTATIN 20 MG TABLET 40 MG PO (20:04)
[2022-08-21] MEDS: MONTELUKAST SODIUM 10 MG TABLET PO (20:04)
[2022-08-21] MEDS: FERROUS SULFATE 324 MG TABLET PO (20:04)
[2022-08-21] MEDS: traZODone HCL 50 MG TABLET PO (20:04)
[2022-08-21 20:21] LABS: Glucose Point of Care 258 mg/dl (65-105)
[2022-08-21 21:27] VITALS: PULSE 67
[2022-08-21 22:00] VITALS: BP 116/51; PULSE 68; RESP 19; TEMP 36.2; O2SAT 97
[2022-08-22 05:28] VITALS: PULSE 80
[2022-08-22] MEDS: MECLIZINE HCL 12.5 MG TABLET PO ×3 (05:28→20:59)
[2022-08-22] MEDS: HYDROcodone/acetaminophen (*CRX) 5-325 MG TABLET 1 TAB PO ×3 (05:28→20:56)
[2022-08-22] MEDS: METOPROLOL TARTRATE 25 MG TABLET PO ×3 (05:28→20:59)
[2022-08-22] MEDS: diphenhydrAMINE HCl CAP 25 MG CAPSULE PO ×3 (05:28→21:14)
[2022-08-22] MEDS: metroNIDAZOLE 500 MG/ISO 100ML 500 MG/100 ML BAG 100 MG IVPB ×3 (05:29→23:05)
[2022-08-22 06:00] VITALS: BP 148/66; PULSE 71; RESP 19; TEMP 35.9; O2SAT 99
[2022-08-22 06:34] LABS: Hematocrit 32.4 % (37.0-47.0); Hemoglobin 10.1 g/dL (12.0-15.0); Mean Corpuscular HGB Conc 31.2 g/dl (32-36); Mean Corpuscular Hemoglobin 29.4 pg (26-34); Mean Corpuscular Volume 94.2 fl (80-100); Platelet Count Result 264 k/mm3 (150-375); Red Blood Count 3.44 M/mm3 (4.2-5.4); Red Cell Distribution Width 12.6 % (11.5-14.5); White Blood Count 5.5 K/mm3 (4.5-10.0)
[2022-08-22 07:57] LABS: Glucose Point of Care 243 mg/dl (65-105)
[2022-08-22 08:11] LABS: Anion Gap 5 mmol/L (8-16); Blood Urea Nitrogen 40 mg/dL (7-17); Calcium 8.5 mg/dL (8.4-10.2); Carbon Dioxide 30 mmol/L (22-30); Chloride 98 mmol/L (98-107); Estimated CRCL calculation 26 ml/min; Estimated Glomerular Filt Rate 36; Glucose 202 mg/dL (65-110); Magnesium 1.6 mg/dL (1.6-2.3); Potassium 4.1 mmol/L (3.4-5.0); Sodium 133 mmol/L (137-145)
[2022-08-22] MEDS: INSULIN ASPART (*BKC) 100 UNITS/ML SUB-Q ×2 (08:28→11:52)
[2022-08-22] MEDS: ENOXAPARIN 30 MG/0.3 ML SYRINGE SUB-Q (08:29)
[2022-08-22] MEDS: ASPIRIN 81 MG ENTERIC TABLET PO (08:29)
[2022-08-22] MEDS: MAGNESIUM OXIDE 400 MG TABLET PO (08:29)
[2022-08-22] MEDS: EZETIMIBE 10 MG TABLET PO (08:29)
[2022-08-22] MEDS: PARoxetine 20 MG TABLET 40 MG PO (08:29)
[2022-08-22] MEDS: SILVERGEL (ELTA) 45 ML 1 APPLIC TOPICAL (08:30)
[2022-08-22] MEDS: EMPAGLIFLOZIN 10 MG TABLET PO (08:30)
[2022-08-22] MEDS: PANTOPRAZOLE 40 MG TABLET PO (08:30)
[2022-08-22] MEDS: CALCIUM CARBONATE (OSCAL) 500 MG TABLET PO ×2 (08:30→16:50)
[2022-08-22] MEDS: DOXYCYCLINE 100 MG/NS 100 ML 100 MG/100 ML BAG IVPB ×2 (08:30→20:57)
[2022-08-22] MEDS: FUROSEMIDE 40 MG TABLET PO (08:30)
--- NOTE | 2022-08-22 10:39 | PM.IMPN ---
Progress Note: A&P Assessment and Plan (1) Cellulitis of foot, left: Code(s): L03.116 - Cellulitis of left lower limb Status: Acute Assessment and Plan: Postop day 1 from I&D of left 5th toe abscess, antibiotics changed to IV doxycycline and Flagyl, continue Suspect osteomyelitis, follow-up biopsy and cultures Appreciate surgery consultation 08/22/2022 interval history:?patient had MRI of the foot and it showed?Prominent erosions in several phalanges as well as at the head of the first metatarsal. This appears chronic at the first metatarsophalangeal joint with imaging features on CT and MRI most consistent with gout, and likely also at the third proximal interphalangeal joint. At the fifth distal interphalangeal joint there is a prominent soft tissue edema and an associated loculated fluid collection which is more suspicious for either infection or secondary superinfection with abscess and osteomyelitis. Appearance at the second distal interphalangeal joint and distal phalanx lies in the spectrum between these 2 appearances, consistent with gout but equivocal for secondary superinfection. on 08/16 Patient had a IND of the left 5th toe and surgery concern for osteomyelitis initial wound culture collected is growing Staph aureus not MRSA, and Prevotella species pansensitive being treated with doxycycline and Flagyl, repeat I&D of the foot is growing staph aureus MSSA currently treated with doxycycline and Flagyl, now concern for osteomyelitis, on 08/19 discussed with ID pharmacist, recommending ceftriaxone IV and Flagyl oral for total of 6 weeks, on 08/20 discussed with General surgery recommending amputation of the left 5th toe, antibiotics may not cure the toe, on 08/20 patient was agreeable to have left 5th toe amputated, 08/21 patient was seen by surgery service patient can be discharged and will have amputation of the left 5th toe as an outpatient, patient is 86 y/o due to logistic patient will remains in the hospital until tomorrow and will have amputation and may discahrge her afterward. Plan DVT prophylaxis with Lovenox GI prophylaxis with PPI Code status full code Subjective Date/time seen: 08/22/22 10:39 08/22/2022 interval history:?patient had MRI of the foot and it showed?Prominent erosions in several phalanges as well as at the head of the first metatarsal. This appears chronic at the first metatarsophalangeal joint with imaging features on CT and MRI most consistent with gout, and likely also at the third proximal interphalangeal joint. At the fifth distal interphalangeal joint there is a prominent soft tissue edema and an associated loculated fluid collection which is more suspicious for either infection or secondary superinfection with abscess and osteomyelitis. Appearance at the second distal interphalangeal joint and distal phalanx lies in the spectrum between these 2 appearances, consistent with gout but equivocal for secondary superinfection. on 08/16 Patient had a IND of the left 5th toe and surgery concern for osteomyelitis initial wound culture collected is growing Staph aureus not MRSA, and Prevotella species pansensitive being treated with doxycycline and Flagyl, repeat I&D of the foot is growing staph aureus MSSA currently treated with doxycycline and Flagyl, now concern for osteomyelitis, on 08/19 discussed with ID pharmacist, recommending ceftriaxone IV and Flagyl oral for total of 6 weeks, on 08/20 discussed with General surgery recommending amputation of the left 5th toe, antibiotics may not cure the toe, on 08/20 patient was agreeable to have left 5th toe amputated, 08/21 patient was seen by surgery service patient can be discharged and will have amputation of the left 5th toe as an outpatient, patient is 86 y/o due to logistic patient will remains in the hospital until tomorrow and will have amputation and may discahrge her afterward. Exam Narrative: elderly frail Patient is comfortable, NAD HEENT:
[2022-08-22 11:28] LABS: Glucose Point of Care 330 mg/dl (65-105)
[2022-08-22 14:00] VITALS: BP 113/59; PULSE 81; RESP 20; TEMP 36.3; O2SAT 99
[2022-08-22 14:16] VITALS: PULSE 70
[2022-08-22 16:37] LABS: Glucose Point of Care 154 mg/dl (65-105)
[2022-08-22] MEDS: traZODone HCL 50 MG TABLET PO (20:56)
[2022-08-22 20:59] VITALS: PULSE 70
[2022-08-22] MEDS: MONTELUKAST SODIUM 10 MG TABLET PO (20:59)
[2022-08-22] MEDS: SIMVASTATIN 20 MG TABLET 40 MG PO (20:59)
[2022-08-22] MEDS: FERROUS SULFATE 324 MG TABLET PO (20:59)
[2022-08-22 21:26] LABS: Glucose Point of Care 210 mg/dl (65-105)
[2022-08-22 22:20] VITALS: BP 107/48; PULSE 71; RESP 16; TEMP 36.3; O2SAT 98
[2022-08-23 05:45] VITALS: PULSE 72
[2022-08-23] MEDS: METOPROLOL TARTRATE 25 MG TABLET PO ×2 (05:45→14:53)
[2022-08-23] MEDS: MECLIZINE HCL 12.5 MG TABLET PO ×2 (05:46→14:52)
[2022-08-23] MEDS: metroNIDAZOLE 500 MG/ISO 100ML 500 MG/100 ML BAG 100 MG IVPB (05:46)
[2022-08-23 06:00] VITALS: BP 122/63; PULSE 68; RESP 16; TEMP 36.4; O2SAT 96
[2022-08-23 07:57] LABS: Hemoglobin 10.2 g/dL (12.0-15.0); Mean Corpuscular HGB Conc 31.9 g/dl (32-36); Mean Corpuscular Hemoglobin 30.4 pg (26-34); Mean Corpuscular Volume 95.5 fl (80-100); Mean Platelet Volume 9.3 fl (7.4-10.4); Platelet Count Result 272 k/mm3 (150-375); Red Blood Count 3.35 M/mm3 (4.2-5.4); Red Cell Distribution Width 12.8 % (11.5-14.5); White Blood Count 5.5 K/mm3 (4.5-10.0)
[2022-08-23 08:14] LABS: Glucose Point of Care 220 mg/dl (65-105)
[2022-08-23] MEDS: HYDROcodone/acetaminophen (*CRX) 5-325 MG TABLET 1 TAB PO ×3 (09:01→18:40)
[2022-08-23] MEDS: MAGNESIUM OXIDE 400 MG TABLET PO (09:02)
[2022-08-23] MEDS: PARoxetine 20 MG TABLET 40 MG PO (09:02)
[2022-08-23] MEDS: CALCIUM CARBONATE (OSCAL) 500 MG TABLET PO ×2 (09:02→17:42)
[2022-08-23] MEDS: EMPAGLIFLOZIN 10 MG TABLET PO (09:03)
[2022-08-23] MEDS: PANTOPRAZOLE 40 MG TABLET PO (09:03)
[2022-08-23] MEDS: EZETIMIBE 10 MG TABLET PO (09:03)
[2022-08-23] MEDS: ASPIRIN 81 MG ENTERIC TABLET PO (09:03)
[2022-08-23] MEDS: FUROSEMIDE 40 MG TABLET PO (09:03)
[2022-08-23] MEDS: SILVERGEL (ELTA) 45 ML 1 APPLIC TOPICAL (09:04)
[2022-08-23] MEDS: DOXYCYCLINE 100 MG/NS 100 ML 100 MG/100 ML BAG IVPB (09:08)
[2022-08-23] MEDS: diphenhydrAMINE HCl CAP 25 MG CAPSULE PO (10:20)
[2022-08-23 11:40] LABS: Anion Gap 5 mmol/L (8-16); Blood Urea Nitrogen 41 mg/dL (7-17); Calcium 8.5 mg/dL (8.4-10.2); Carbon Dioxide 29 mmol/L (22-30); Chloride 100 mmol/L (98-107); Estimated CRCL calculation 30 ml/min; Estimated Glomerular Filt Rate 43; Glucose 196 mg/dL (65-110); Magnesium 1.8 mg/dL (1.6-2.3); Potassium 4.6 mmol/L (3.4-5.0); Sodium 134 mmol/L (137-145)
[2022-08-23 11:54] LABS: Glucose Point of Care 194 mg/dl (65-105)
[2022-08-23 14:00] VITALS: BP 121/68; PULSE 76; RESP 16; TEMP 36.3; O2SAT 100
[2022-08-23 14:54] LABS: EDCOVIDSCREEN Negative (Negative)
[2022-08-23 16:45] LABS: Glucose Point of Care 241 mg/dl (65-105)
[2022-08-23] MEDS: INSULIN ASPART (*BKC) 100 UNITS/ML SUB-Q (17:42)
--- NOTE | 2022-09-03 18:18 | PM.DS ---
DS: Admitting Diagnosis Discharge Date 08/23/22 Admitting Diagnosis Weakness and poor appetite. DS: Discharge Diagnosis Discharge Diagnosis (1) Cellulitis of foot, left: Code(s): L03.116 - Cellulitis of left lower limb Status: Acute Assessment and Plan: Postop day 1 from I&D of left 5th toe abscess, antibiotics changed to IV doxycycline and Flagyl, continue Suspect osteomyelitis, follow-up biopsy and cultures Appreciate surgery consultation 08/22/2022 interval history:?patient had MRI of the foot and it showed?Prominent erosions in several phalanges as well as at the head of the first metatarsal. This appears chronic at the first metatarsophalangeal joint with imaging features on CT and MRI most consistent with gout, and likely also at the third proximal interphalangeal joint. At the fifth distal interphalangeal joint there is a prominent soft tissue edema and an associated loculated fluid collection which is more suspicious for either infection or secondary superinfection with abscess and osteomyelitis. Appearance at the second distal interphalangeal joint and distal phalanx lies in the spectrum between these 2 appearances, consistent with gout but equivocal for secondary superinfection. on 08/16 Patient had a IND of the left 5th toe and surgery concern for osteomyelitis initial wound culture collected is growing Staph aureus not MRSA, and Prevotella species pansensitive being treated with doxycycline and Flagyl, repeat I&D of the foot is growing staph aureus MSSA currently treated with doxycycline and Flagyl, now concern for osteomyelitis, on 08/19 discussed with ID pharmacist, recommending ceftriaxone IV and Flagyl oral for total of 6 weeks, on 08/20 discussed with General surgery recommending amputation of the left 5th toe, antibiotics may not cure the toe, on 08/20 patient was agreeable to have left 5th toe amputated, 08/21 patient was seen by surgery service patient can be discharged and will have amputation of the left 5th toe as an outpatient, patient is 86 y/o due to logistic patient will remains in the hospital until tomorrow and will have amputation and may discahrge her afterward. Plan DVT prophylaxis with Lovenox GI prophylaxis with PPI Code status full code DS: Summary Hospital Course Reason for hospitalization: Weakness and poor appetite. Narrative: This is a pleasant 86-year-old female with hypertension, dyslipidemia, type 2 diabetes mellitus, chronic kidney disease, and diastolic congestive heart failure who presented to the emergency department from [facility] for evaluation of generalized weakness and poor appetite. She has not been feeling well for several days and couple of days ago she noticed redness, swelling, and pain about the left 5th toe. It has gotten progressively worse and she now has red streaking up the dorsum of the foot. Her appetite has not been good and she has had some nausea but no vomiting. She denies fever, chills, and sweats. She has not had any diarrhea.? She does endorse mild dysuria but that is not unusual for her and she takes azo if needed. She denies injury to the toe but she is not certain how she got the wound. No cold or flu symptoms. No sick contacts.? No history of MRSA Hospital Course: ?patient had MRI of the foot and it showed?Prominent erosions in several phalanges as well as at the head of the first metatarsal. This appears chronic at the first metatarsophalangeal joint with imaging features on CT and MRI most consistent with gout, and likely also at the third proximal interphalangeal joint. At the fifth distal interphalangeal joint there is a prominent soft tissue edema and an associated loculated fluid collection which is more suspicious for either infection or secondary superinfection with abscess and osteomyelitis. Appearance at the second distal interphalangeal joint and distal phalanx lies in the spectrum between these 2 appearances, consistent with gout but equivocal f
== END 2022-08-23 20:02 | DRG 638 ==
LOC: ANHED 15:37 → ANH3MEDSUR 15:38
PROVIDERS: Physician Assistant; Surgery; Admitting Provider Student in an Organized Health Care Education/Training Program; Emergency Provider Emergency Medicine; PCP Family Medicine; Visit Provider Family Medicine
PROC: 0J9R3ZZ Drainage of Left Foot Subcutaneous Tissue and Fascia, Percutaneous Approach (ICD-10-PCS; principal; 2022-08-16 13:30)
DX: E11.628 Type 2 diabetes mellitus with other skin complications (principal); I13.0 Hypertensive heart and chronic kidney disease with heart failure and stage 1 through stage 4 chronic kidney disease, or unspecified chronic kidney disease; M86.9 Osteomyelitis, unspecified; I50.30 Unspecified diastolic (congestive) heart failure; E11.69 Type 2 diabetes mellitus with other specified complication; E86.0 Dehydration; M10.9 Gout, unspecified; B95.61 Methicillin susceptible Staphylococcus aureus infection as the cause of diseases classified elsewhere; N18.30 Chronic kidney disease, stage 3 unspecified; E11.22 Type 2 diabetes mellitus with diabetic chronic kidney disease; F32.A Depression, unspecified; Z20.822 Contact with and (suspected) exposure to COVID-19; Z82.49 Family history of ischemic heart disease and other diseases of the circulatory system; Z83.3 Family history of diabetes mellitus; Z79.899 Other long term (current) drug therapy; Z79.82 Long term (current) use of aspirin; Z88.7 Allergy status to serum and vaccine
CPT/HCPCS: 36415; 51701; 71045; 73630; 73718; 80048; 80053; 80202; 81001; 82565; 82948; 83036; 83605; 83735; 84439; 84443; 84480; 85025; 85027; 85610; 85730; 87040; 87070; 87075; 87076; 87077; 87086; 87088; 87147; 87185; 87186; 87205; 87426; 87636; 93005; 96361; 96365; 96366; 96367; 96375; 97110; 97116; 97161; 97164; 97165; 97530; 97535; 99285; A9270; C9803; G0378; J0692; J1100; J1170; J1650; J1815; J2405; J2704; J3010; J3370; J7030; J7120

== ENCOUNTER 2022-08-26 08:13 | Outpatient (RCR) | payer MEDICARE, SELFPAY ==
--- NOTE | 2022-08-26 08:55 | PM.PNGS ---
Progress Note: A&P Assessment and Plan (1) Diabetic foot infection: Code(s): E11.628 - Type 2 diabetes mellitus with other skin complications; L08.9 - Local infection of the skin and subcutaneous tissue, unspecified Status: Acute Assessment and Plan: The cellulitis of the left foot has now resolved but the left 5th toe has gross evidence of osteomyelitis Fred is not likely going to be viable. I have recommended proceeding with amputation of the left 5th toe. The patient is acceptable to this plan. we will go ahead and proceed with outpatient amputation of left 5th toe early next week. Risks, benefits, indications, and expected outcomes were discussed in detail with the patient and/or family. They understand and I have answered all other questions. They wished to proceed with surgery as outlined above. Subjective Subjective Date/Time Seen: 08/26/22 08:55 Interval history: Mrs Larios is seen [facility] the [facility] today in follow-up after incision and drainage of abscess on her left 5th toe. She has evidence of osteomyelitis of the left 5th toe. The cellulitis in the left forefoot resolved after drainage of the abscess. The patient would discharge home on oral antibiotics but has now decided that she is okay with proceeding with amputation of the left 5th toe. Today she has no new complaints. There is no severe pain in the left 5th toe. She denied any fevers at home. Review of Systems Review of Systems: The remainder of the review of systems to include constitutional, HEENT, cardiovascular, respiratory, GI, , integumentary, musculoskeletal, endocrine, immunologic, hematologic, psychiatric, and neurologic are all negative except for which is mentioned above in the HPI. Exam Const: General: cooperative and comfortable HENMT: Head: normal to inspection, normocephalic and atraumatic Eyes: General: appearance normal, both eyes and all related structures EOM: EOMs intact bilaterally Neck: Neck: normal visual inspection, full ROM and no lymphadenopathy Chest: Chest palpation & inspection: normal inspection of the chest Resp: Effort & Inspection: normal respiratory effort and able to speak in complete sentences Auscultation: clear to auscultation bilaterally Cardio: Jugular venous distension: no JVD Rate: regular rate Rhythm: regular rhythm GI: Inspection: normal to inspection Auscultation: normal bowel sounds Rectal Exam: deferred : OB/external & speculum: Deferred OB/external & speculum exam Neuro: General: oriented to person and CN's II-XI intact bilaterally Speech: normal speech Sensory Exam: normal sensation Extrem: Other: Left 5th toe with partially open incision without drainage or any purulent fluid. The left 5th toe was still swollen and partially cyanotic and ecchymotic. There is no wet for dry gangrene of the toe. The remaining toes on the left foot are viable without evidence of cellulitis or active infection. The left forefoot has no swelling or redness. Psych: Appearance: grossly normal Speech and movement: Normal speech and movement present Affect: normal affect
[2022-08-26 09:03] VITALS: BMI 22.8
== END 2022-11-15 13:50 | disposition home or self-care (01) ==
LOC: ANHWOC 08:13
PROVIDERS: PCP Family Medicine; Visit Provider Surgery
DX: Z48.817 Encounter for surgical aftercare following surgery on the skin and subcutaneous tissue (principal); Z47.81 Encounter for orthopedic aftercare following surgical amputation; Z89.422 Acquired absence of other left toe(s)
CPT/HCPCS: 99213; G0463

== ENCOUNTER 2022-08-30 00:57 | Day surgery (SDC) | payer MEDICARE, SELFPAY ==
[2022-08-25 11:23] VITALS: BMI 22.5
--- NOTE | 2022-08-25 11:25 | PC.NURSE ---
Report to the Outpatient Waiting Room, entrance under the green pavilion located off [facility], at time 0630 on date ___08/30/22____. Planned Procedure Time: ___829 . Time changes happen often and if your time is changed the preop area will call you the afternoon before. - You and your visitor will be asked to self-screen and do not enter if you have any COVID symptoms. - Only one visitor is requested with a max of two and NO children visitors are allowed at this time. - The patient visitor may be requested to leave or wait in car when not with patient due to distancing restrictions. - A mask is optional within the hospital at this time. Patients may have clear liquids (water, carbonated beverages, clear teas, apple juice) until 3 hours prior to surgery with a maximum of 20 ounces. - No food from midnight until time of surgery - Infants may have breast milk until 4 hours before surgery, formula 6 hours prior to surgery. - Children will be allowed to drink immediately following surgery. If applicable, please bring a bottle or sippy cup to assist with drinking. Juice, water, soda, and popsicles are readily available. For infants on formula, please bring formula the day of surgery. Pacifiers are allowed. Take the following medications with a SIP of water the morning of surgery: _METOPROLOL AND PAROXETINE DO NOT STOP ANY OF YOUR OTHER PRESCRIPTION MEDICATIONS PRIOR TO SURGERY ?EXCEPT THE FOLLOWING Medications to discontinue per physician ____ALL VITAMINS AND SUPPLEMENTS 3 DAYS PRE OP Date to take last dose__08/26/22 Please no make-up, nail tajik, hairspray, perfume, deodorant, or body powder the day of surgery. No jewelry (including any body piercings) or valuables the day of surgery, leave them at home. Please take a shower or bath the night before, or the morning of, surgery with an antibacterial soap. Wear comfortable, loose fitting clothing. Children are encouraged to wear pajamas. - Jewelry must be removed prior to entering the operating room. Rings and piercings that are not removed may be cut off. - The hospital will not accept responsibility for valuables. - Please leave all valuables, including medications, at home the day of surgery. If you are going home after surgery, a licensed delivery driver/supervisor must drive you home. - NO public transportation without another adult if you receive anesthesia. - We recommend that an adult stay with you for 24 hours following discharge. - We also recommend that you do not drive, make important decision, drink alcoholic beverages, or take any drugs that were not prescribed by your health care provider for at least 24 hours after your discharge time Follow any additional instructions given to you from your surgeon. If you or anyone in your household have experienced Covid symptoms in the past week, please notify your surgeon or the nurse liaison at the phone number below for possible testing. Telephone instructions given to FAXED TO [facility] ATT: TONI and asked if any additional questions and then verbalized understanding. I SPOKE WITH PT'S SON KAREN LAINEZ MADE AWARE Patient advised to call surgeon office or pre surgery nurse liaison [phone] if any additional questions.
--- NOTE | 2022-08-25 11:35 | PC.NURSE ---
NO CHANGE IN HEALTH HX SINCE LAST INTERVIEW ON 08/11/22 PER SON KAREN LAINEZ
[2022-08-30] VITALS (13 sets, daily range): BP systolic 128–158; BP diastolic 51–72; PULSE 68–83; RESP 14–20; TEMP 35.9–36.9; O2SAT 94–100
--- NOTE | 2022-08-30 07:56 | WPDANESEPPF ---
Anes - Initial Pre Proc Eval Procedure: Operation Date: 08/30/22 08:30 Proposed Procedures p Amputation Fifth Toe Left Foot - Eddie Dozier MD Date/Time: 08/30/22 07:56 Surgeon: Eddie Dozier MD Pre Op Diagnosis: Diabetic Left Foot wound Patient Data Age: 86 Gender: F Height: 1.7 m Weight: 65.35 kg Allergies Allergy/AdvReac Type Severity Reaction Status Date / Time influenza A (H1N1) virus Allergy Unknown Swelling Verified 08/26/22 09:17 vaccine m-jong-split 2008 of Lip/Tongue/Throat Influenza Virus Vaccines Allergy Unknown Swelling Verified 08/26/22 09:17 of Lip/Tongue/Throat phenobarbital AdvReac Mild Hallucinati Verified 08/26/22 09:17 ng Home Medications Medication Instructions Recorded Confirmed Type fluticasone propionate 50 1 spray intranasal BID PRN 07/24/19 08/26/22 History mcg/actuation nasal Congestion spray,suspension furosemide 40 mg tablet 40 mg PO DAILY 07/24/19 08/26/22 History montelukast 10 mg tablet 10 mg PO HS 07/24/19 08/26/22 History trazodone 50 mg tablet 50 mg PO HS #10 tabs 07/27/19 08/26/22 Rx magnesium oxide 400 mg (241.3 mg 400 mg PO QAM 30 days #30 tabs 09/03/19 08/26/22 Rx magnesium) tablet metoprolol tartrate 25 mg tablet 25 mg PO TID 12/12/20 08/26/22 History simvastatin 40 mg tablet 40 mg PO HS 12/12/20 08/26/22 History acetaminophen 500 mg capsule 500 mg PO Q6H PRN Pain 04/15/22 08/26/22 History calcium carbonate 600 mg calcium 600 mg PO BID 04/15/22 08/26/22 History (1,500 mg) tablet hydrocortisone 2.5 % topical cream 1 applic topical Q12H PRN 04/15/22 08/26/22 History with perineal applicator Hemorrhoids (Proctosol HC) omeprazole 20 mg capsule,delayed 20 mg PO DAILY 04/15/22 08/26/22 History release ezetimibe 10 mg tablet 10 mg PO DAILY #90 tabs 04/23/22 08/26/22 Rx paroxetine HCl 40 mg tablet 40 mg PO DAILY #90 tabs 04/23/22 08/26/22 Rx sitagliptin phosphate 100 mg 100 mg PO DAILY #90 tabs 06/29/22 08/26/22 Rx tablet (Januvia) empagliflozin 10 mg tablet 10 mg PO DAILY #90 tabs 08/03/22 08/26/22 Rx (Jardiance) aspirin 81 mg tablet,delayed 81 mg PO DAILY 08/11/22 08/26/22 History release ferrous sulfate 325 mg (65 mg 325 mg PO HS 08/11/22 08/26/22 History iron) capsule,extended release meclizine 12.5 mg tablet 12.5 mg PO Q12H 08/11/22 08/26/22 History diphenhydramine HCl 25 mg capsule 25 mg PO Q6H PRN Itching #30 caps 08/23/22 08/26/22 Rx hydrocodone 5 mg-acetaminophen 325 1 tablet PO Q6H PRN Pain Rated 4-6 08/23/22 08/26/22 Rx mg tablet #12 tabs silver 200 mcg/gram topical gel 1 applic topical DAILY #45 grams 08/23/22 08/26/22 Rx (Silver-Sept) Patient hx anesthesia problems: none Family hx anesthesia problems: none Results Review: All pre-operative results and documents have been reviewed as part of the pre-operative evaluation. [facility] Past Medical History Medical History Anemia History of blood transfusions. Aortic valve stenosis [id number] aortic valve stenosis on echocardiogram in April 2021 with a valve area of 1.1 to 1.5 centimeter squared. Arthritis Chronic kidney disease, stage 3 Creatinine seems to range between 0.7 and 1.30. Depression Diabetic peripheral neuropathy Diastolic congestive heart failure Echocardiogram on 12/13/2020 showed normal left ventricular size with moderate consent of left ventricular hypertrophy with overall good left ventricular systolic function with an EF measuring 62%. There was hypokinesis of the basal inferoseptal segment as well as grade 1 diastolic dysfunction with moderately enlarged left atrial chamber and atrial septal aneurysm. Diverticulitis Fracture of proximal end of right humerus (07/24/19) Gastroesophageal reflux GI bleed History of rectal polyps Hyperlipidemia Hypertension Primary osteoarthritis of both knees Severe pulmonary hypertension Noted on echocardiogram April 2021
[2022-08-30 07:57] LABS: Glucose Point of Care 250 mg/dl (65-105)
[2022-08-30] MEDS: LACTATED RINGERS 1,000 ML 30 ML IV CONT (08:05)
--- NOTE | 2022-08-30 08:50 | WPDHPUPDATE1 ---
History and Physical Update Update Date/Time: 08/30/22 08:50 History and Physical has been reviewed, including an updated exam of the patient. There are NO changes in the patient's condition. Risks, benefits, and alternatives have been discussed and questions answered. Patient agrees to proceed with procedure.
[2022-08-30] MEDS: LIDO 2%/EPINEPHRINE 1:100,000 50 ML VIAL 10 ML INFILTRATE (09:25)
--- NOTE | 2022-08-30 09:54 | P.OP_ITS ---
Procedure Note - Detailed Date of Procedure 08/30/22 Pre-op Diagnosis Left 5th toe osteomyelitis Post-op Diagnosis Same Procedure Performed Amputation left 5th toe Surgeon Eddie Dozier MD [employer] [facility] Velaz[facility] Anesthesia General Indications Patient is a 86-year-old female who initially presented with a lighted of the left foot and abscess of the left 5th toe. The abscess was drained and the cellulitis resolved but she had evidence of osteomyelitis left 5th toe. Since the left 5th toe is essentially nonfunctional she presents now for amputation of the left 5th toe rather than undergo an extended course of IV antibiotics. Findings Left 5th toe was amputated. Proximal end of the left 5th metatarsal was normal and no evidence of bone destruction. There is no residual necrotic tissue or purulence in the joint. Description of Procedure After informed consent was obtained the patient was brought to the operating room she is placed under general LMA anesthesia. The left lower extremity from the foot to the mid tibia region was then prepped and draped in usual sterile fashion. A time-out was then performed and the site marking was verified. She was given 500 mg of Vancomycin for IV abx. I started the amputation by utilizing a scalpel to make a circumferential incision around the base of the left 5th toe and extended the incision on the lateral portion of the left foot by about 3centimeters. I then utilized a scalpel to cut down to the metatarsophalangeal joint and disarticulated the left 5th toe at the joint. The toe was sent to pathology for examination. I then utilized a periosteal elevator to dissect the soft tissue around the metatarsal head and and distal shaft. I then used a bone cutter to divide the 5th metatarsal proximal to the metatarsal head. This bone was then sent to pathology as well. I then used a rongure to remove some of the sharp edges of the bone. Hemostasis was good. There is no evidence of any purulence in the joint space or any necrotic tissue. I then placed some bone wax on the end of the metatarsal shaft and then placed 3 0 Vicryl sutures closed the tissue around the area over the end of the bone. The skin edges then approximated to close the wound utilizing interrupted 3 0 nylon sutures. Incision closed well without any tension. The area was then cleaned and antibiotic ointment for 4 gauze Don wrap was used for final dressing. The patient tolerated the procedure well no complications. All sponges, needles, and instrument counts were correct at the end procedure. EBL was _5__cc. The patient was awakened and taken to recovery in stable satisfactory condition Implants None Estimated Blood Loss 5 Drains No Packing No Pathology Yes (Left 5th toe and metatarsal head) Complications No immediate complications Condition Stable Disposition PACU [facility] Billing Surgery - Charge Forward: Surgery Billing
[2022-08-30 10:01] LABS: Glucose Point of Care 245 mg/dl (65-105)
--- NOTE | 2022-08-30 11:11 | ADMGEN ---
This patient, Elizabeth Negron, was admitted to 3 Medical Room [facility] @ 1110. Patient/family oriented to hospital policies and general routines including ID bracelet, bed and alarms, visiting hours, pain management, procedures, bathroom and other care routines, personal items, smoking policy, room service/diet, and visiting hours. Information on how to activate the Rapid Response Team has been discussed. Patient/Family are encouraged to report perceived risks to care and to ask questions if they do not understand what they are told or what they should do.
[2022-08-30 12:17] LABS: Glucose Point of Care 249 mg/dl (65-105)
[2022-08-30] MEDS: METOPROLOL TARTRATE 25 MG TABLET PO ×2 (13:06→20:25)
[2022-08-30] MEDS: HYDROcodone/acetaminophen (*CRX) 5-325 MG TABLET 1 TAB PO (15:07)
[2022-08-30 17:15] LABS: Glucose Point of Care 191 mg/dl (65-105)
[2022-08-30] MEDS: CALCIUM CARBONATE (OSCAL) 500 MG TABLET PO (18:01)
[2022-08-30] MEDS: MECLIZINE HCL 12.5 MG TABLET PO (20:26)
[2022-08-30] MEDS: traZODone HCL 50 MG TABLET PO (20:26)
[2022-08-30] MEDS: FERROUS SULFATE 324 MG TABLET PO (20:26)
[2022-08-30] MEDS: MONTELUKAST SODIUM 10 MG TABLET PO (20:26)
[2022-08-30] MEDS: SIMVASTATIN 20 MG TABLET 40 MG PO (20:26)
[2022-08-30] MEDS: diphenhydrAMINE HCl CAP 25 MG CAPSULE PO (20:30)
[2022-08-30 20:34] LABS: Glucose Point of Care 196 mg/dl (65-105)
[2022-08-30] MEDS: FLUTICASONE PROPIONATE 0.05% NA SPR 16 GM BTL (*BKC) 1 SPRAY NASAL (22:59)
[2022-08-31 05:43] VITALS: PULSE 72
[2022-08-31] MEDS: METOPROLOL TARTRATE 25 MG TABLET PO (05:43)
[2022-08-31 06:00] VITALS: BP 158/67; PULSE 81; RESP 16; TEMP 36.5; O2SAT 96
[2022-08-31] MEDS: HYDROcodone/acetaminophen (*CRX) 5-325 MG TABLET 1 TAB PO ×2 (09:02→14:30)
[2022-08-31] MEDS: FLUTICASONE PROPIONATE 0.05% NA SPR 16 GM BTL (*BKC) 1 SPRAY NASAL (09:04)
[2022-08-31] MEDS: PARoxetine 20 MG TABLET 40 MG PO (09:05)
[2022-08-31] MEDS: EZETIMIBE 10 MG TABLET PO (09:05)
[2022-08-31] MEDS: FUROSEMIDE 40 MG TABLET PO (09:05)
[2022-08-31] MEDS: ASPIRIN 81 MG ENTERIC TABLET PO (09:05)
[2022-08-31] MEDS: MAGNESIUM OXIDE 400 MG TABLET PO (09:05)
[2022-08-31] MEDS: MECLIZINE HCL 12.5 MG TABLET PO (09:05)
[2022-08-31] MEDS: CALCIUM CARBONATE (OSCAL) 500 MG TABLET PO (09:05)
[2022-08-31] MEDS: PANTOPRAZOLE 40 MG TABLET PO (09:06)
[2022-08-31] MEDS: EMPAGLIFLOZIN 10 MG TABLET PO (09:06)
[2022-08-31 09:11] LABS: Glucose Point of Care 197 mg/dl (65-105)
[2022-08-31] MEDS: diphenhydrAMINE HCl CAP 25 MG CAPSULE PO (09:12)
--- NOTE | 2022-08-31 09:40 | WPDANESPN ---
Anes - Prog Note Post-Op Date/Time: 08/31/22 09:40 Cardiovascular status: normal Respiratory status: normal Airway patency: baseline Mental status: baseline Post-Op hydration status: normal Vital Signs: Last Vital Signs Temp 36.5 C 08/31/22 06:00 Pulse 81 08/31/22 06:00 Resp 16 08/31/22 06:00 BP 158/67 H 08/31/22 06:00 Pulse Ox 96 08/31/22 06:00 O2 Del Method Room Air 08/30/22 20:00 O2 Flow Rate 6 08/30/22 10:05 Pain Score (VAS): 310 I/O: Intake & Output 08/30/22 08/31/22 08/31/22 23:59 07:59 15:59 Intake Total 240 Balance 240 08/30/22 08/30/22 08/30/22 09:58 12:14 17:13 POC Capillary Glucose 245 H 249 H 191 H 08/30/22 08/31/22 20:24 09:08 POC Capillary Glucose 196 H 197 H Post-procedural complaints: nausea (after surgery, resolved this morning ) Patient Feedback: Patient satisfied with anesthetic care.
--- NOTE | 2022-08-31 11:23 | PM.DS ---
DS: Admitting Diagnosis Discharge Date 08/31/22 Admitting Diagnosis Cellulitis and osteomyelitis left 5th toe DS: Discharge Diagnosis Discharge Diagnosis Plan Cellulitis and osteomyelitis left 5th toe DS: Summary Hospital Course Reason for hospitalization: Amputation left 5th toe Hospital Course: The patient had recent incision and drainage of an abscess involving the left 5th toe. She was found have osteomyelitis of the 5th toe and since the toe was essentially nonfunctional it was recommended that she undergo amputation of the left 5th toe. After drainage of the abscess cellulitis of the toe and foot resolve and rather than undergo a extended course of IV antibiotics to treat osteomyelitis in a nonfunctional toe, she elected to proceed with amputation of the toe. She was brought in to the hospital on August 30, 2022 and taken to the operating room where she underwent an uncomplicated amputation of the left 5th toe with closure of the wound. Postoperatively for course in the recovery was uneventful and she was transferred to the surgical floor for extended outpatient observation overnight. Did well on the floor and tolerated a regular diet. I examined the incision the morning after surgery and appeared to be intact without any evidence of wound complications at this time. It was decided to be discharged back to her assisted living facility with home health nursing to assist with wound care dressings. She can fully weightbear on the left foot as long as she is wearing a postop shoe. She should also use a walker to help with balance. She will follow-up see me in the office in 1 week. Status at Discharge Functional status at discharge: uses cane/walker Overall status at discharge: patient is back to baseline Time Spent with Patient Time attestation: Total time spent providing and/or coordinating discharge services: Time spent: Less than 30 minutes Exam Const: General: cooperative Resp: Effort & Inspection: normal respiratory effort and able to speak in complete sentences Cardio: Rate: regular rate Rhythm: regular rhythm GI: Inspection: normal to inspection GI Palp: No abdominal tenderness, No Abdominal aortic bruit present, No Soft to palpation, No Firmness to palpation present (GI), No Tenderness to palpation present (GI), No Guarding due to palpation present (GI), No Rigid due to palpation, No No hepatosplenomegaly present, No Hepatosplenomegaly present, No Hepatomegaly present, No Splenomegaly present, No Hernia present, No Palpable mass present, No Pulsatile mass present, No Aortic enlargement present, No Ascites present, No Carnett's sign positive, No Rebound tenderness present, No Bladder palpation abnormal and No Other GI palpation findings present Neuro: General: oriented to person and oriented to place Speech: normal speech Extrem: Other: Left foot wound with sutures intact and skin edges well approximated. There is no hematoma or bleeding. No redness extending proximally on the left forefoot. No necrotic tissue or drainage. Psych: Appearance: grossly normal Mental Status: mental status grossly normal Speech and movement: Normal speech and movement present Affect: normal affect DS: Data Data Completed and Pending Pending studies at discharge: Pending at discharge 08/30/22 09:21 Surgical [PTH] Routine Labs on day of discharge: Labs from last 24 hours 08/31/22 08/30/22 08/30/22 09:08 20:24 17:13 POC Capillary Glucose 197 H 196 H 191 H 08/30/22 12:14 POC Capillary Glucose 249 H Discharge Plan Discharge Patient Disposition: [facility] Discharge Instructions: May discharge patient back to [facility] or assisted living facility. Make sure she has a walker available to her at discharge. Discharge her with 4x4 gauze, Kerlix gauze, and Don wrap with some tape for dressing changes. Arrange for home health to assist with dressing changes if needed. Apply
[2022-08-31 12:34] LABS: Glucose Point of Care 301 mg/dl (65-105)
[2022-08-31 13:54] LABS: EDCOVIDSCREEN Negative (Negative)
== END 2022-08-31 14:46 ==
LOC: ANHSURGERY 07:08 → ANH3MED 14:16
PROVIDERS: PCP Family Medicine; Visit Provider Surgery
PROC: (CPT 28820; principal; 2022-08-30 08:30)
DX: E11.69 Type 2 diabetes mellitus with other specified complication (principal); M86.672 Other chronic osteomyelitis, left ankle and foot; L03.032 Cellulitis of left toe; I13.0 Hypertensive heart and chronic kidney disease with heart failure and stage 1 through stage 4 chronic kidney disease, or unspecified chronic kidney disease; I50.30 Unspecified diastolic (congestive) heart failure; E11.22 Type 2 diabetes mellitus with diabetic chronic kidney disease; N18.30 Chronic kidney disease, stage 3 unspecified; E11.42 Type 2 diabetes mellitus with diabetic polyneuropathy; E78.5 Hyperlipidemia, unspecified; K21.9 Gastro-esophageal reflux disease without esophagitis; F32.A Depression, unspecified; D64.9 Anemia, unspecified; I35.0 Nonrheumatic aortic (valve) stenosis; Z79.84 Long term (current) use of oral hypoglycemic drugs; Z79.82 Long term (current) use of aspirin; Z79.891 Long term (current) use of opiate analgesic
CPT/HCPCS: 28820; 82948; 87426; 88305; 88311; 97161; 97165; A9270; C9803; J1100; J2405; J2704; J3010; J3370; J7120

== ENCOUNTER 2022-10-19 14:43 | Outpatient (CLI) | payer MEDICARE, SELFPAY ==
--- NOTE | ~2022-10-19 | XR_ITS ---
Left foot Technique: AP, oblique, and lateral views were obtained. Clinical History: Cellulitis COMPARISON: 08/11/2022 Findings: Patient is status post interval transmetatarsal amputation of the fifth digit. Stable 3.4 c m linear metallic foreign body projecting in the region of the second interspace. Stable extensive er osive changes about the first metatarsophalangeal joint. Remaining osseous structures and joint space s appear intact. There is mild soft tissue swelling at the forefoot. Impression: Status post interval transmetatarsal interpretation the fifth digit. Stable severe gouty arthropathy at the first metatarsophalangeal joint. Stable 3.4 cm linear metallic foreign body projecting over the third interspace region. Reviewed, dictated and finalized at location M. Impression: Status post interval transmetatarsal interpretation the fifth digit. Stable severe gouty arthropathy at the first metatarsophalangeal joint. Stable 3.4 cm linear metallic foreign body projecting over the third interspace region.
== END 2022-10-19 14:44 | disposition home or self-care (01) ==
PROVIDERS: PCP Family Medicine; Visit Provider Nurse Practitioner Gerontology
DX: L03.90 Cellulitis, unspecified (principal); Z98.890 Other specified postprocedural states
CPT/HCPCS: 73630

== ENCOUNTER 2022-10-29 08:08 | Outpatient (CLI) | payer MEDICARE, SELFPAY ==
--- NOTE | ~2022-10-29 | US_ITS ---
EXAMINATION: US art doppler w press LE BI DATE: 10/29/2022 10:07 INDICATION: Peripheral vascular disease, unspecified. TECHNIQUE: Segmental pressures and plethysmographic and Doppler waveforms of the brachial and lower e xtremity arteries were obtained. COMPARISON: None. FINDINGS: Right and left brachial artery pressures of 151 mm Hg and 156 mm Hg, respectively, are concordant (no rmal difference <= 30 mmHg). The right low-thigh pressure index is 1.20. The right ankle-brachial index (ASAD) is 1.13 (normal >= 0 .9-1.0). The right great toe-brachial index (TBI) is 0.58 (normal >= 0.65). Arterial Doppler waveform s are biphasic from common femoral artery to the ankle. The left low-thigh pressure index is 0.98. The left ASAD is 1.08. The left TBI is 0.44. Arterial Doppl er waveforms are biphasic from common femoral artery to the ankle. IMPRESSION: 1. Decreased TBIs and normal ABIs, consistent with arterial occlusive disease. Note that ABIs may be overestimated if arteries are calcified. Reviewed, dictated and finalized at location A.
--- NOTE | ~2022-10-29 | US_ITS ---
EXAMINATION: US venous doppler [facility] DATE: 10/29/2022 10:07 INDICATION: Other specified soft tissue disorders TECHNIQUE: Drummond scale images without and with compression and Doppler images of the bilateral lower e xtremity veins were obtained. COMPARISON: 04/30/2021 FINDINGS: The right common femoral vein, profunda femoral vein, femoral vein, popliteal vein, peroneal trunk, p osterior tibial veins, and greater saphenous vein are patent. A Shah's cyst is noted on the right. The left common femoral vein, profunda femoral vein, femoral vein, popliteal vein, peroneal trunk, po sterior tibial veins, and greater saphenous vein are patent. IMPRESSION: 1. Patent bilateral lower extremity veins. No evidence of deep venous thrombosis. Reviewed, dictated and finalized at location F. IMPRESSION: 1. Patent bilateral lower extremity veins. No evidence of deep venous thrombosi s.
== END 2022-10-29 08:09 | disposition home or self-care (01) ==
PROVIDERS: PCP Family Medicine; Visit Provider Nurse Practitioner Gerontology
DX: I73.9 Peripheral vascular disease, unspecified (principal); M79.89 Other specified soft tissue disorders; L03.90 Cellulitis, unspecified
CPT/HCPCS: 93923; 93970

== ENCOUNTER 2022-11-09 16:27 | Outpatient (CLI) | payer MEDICARE, SELFPAY ==
--- NOTE | ~2022-11-09 | XR_ITS ---
EXAM: XR foot LT min 3V DATE: 11/09/2022 17:00 HISTORY: L03.90 - Cellulitis, unspecified . COMPARISON: 10/19/2022. FINDINGS: Decreased mineralization. No acute fracture or dislocation. Status post distal left first metatarsal and partial second digit amputations. Severe first MTP arthropathy. Retained pin or wire i n the second interspace. Vascular calcification. Plantar enthesopathy. Degenerative change at the tib iotalar joint. Forefoot soft tissue swelling. IMPRESSION: Severe first MTP arthropathy, radiographic features consistent with gouty arthritis. Post surgical changes. Retained pin or wire. Forefoot soft tissue swelling No significant interval change. Reviewed, dictated and finalized at location K. IMPRESSION: Severe first MTP arthropathy, radiographic features consistent with gouty arthritis. Postsurgical changes. Retained pin or wire. Forefoot soft tis koffi swelling No significant interval change.
== END 2022-11-09 16:28 | disposition home or self-care (01) ==
LOC: ANHIMG 16:31
PROVIDERS: PCP Family Medicine; Visit Provider Physician Assistant
DX: L03.90 Cellulitis, unspecified (principal)
CPT/HCPCS: 73630

== ENCOUNTER 2022-11-09 17:02 | Outpatient (CLI) | payer MEDICARE, SELFPAY ==
[2022-11-09 17:22] LABS: Basophils Percent Auto 0.7 % (0.2-1.2); Eosinophils Absolute Auto 0.2 K/mm3 (0-0.3); Eosinophils Percent Auto 2.7 % (0-4.4); Hematocrit 35.9 % (37.0-47.0); Hemoglobin 11.4 g/dL (12.0-15.0); Immature Granulocyte Absolute 0.03 K/mm3 (0.00-0.031); Immature Granulocyte Percent A 0.5 % (0-0.5); Lymphocytes Absolute Auto 1.58 K/mm3 (0.9-3.2); Mean Corpuscular HGB Conc 31.8 g/dl (32-36); Mean Corpuscular Hemoglobin 30.2 pg (26-34); Mean Platelet Volume 9.1 fl (7.4-10.4); Monocytes Absolute Auto 0.5 K/mm3 (0.1-0.6); Neutrophils Absolute Auto 3.4 K/mm3 (1.3-6.7); Neutrophils Percent Auto 60.1 % (45.5-73.1); Platelet Count Result 179 k/mm3 (150-375); Red Blood Count 3.78 M/mm3 (4.2-5.4); Red Cell Distribution Width 14.5 % (11.5-14.5); White Blood Count 5.7 K/mm3 (4.5-10.0)
== END 2022-11-09 17:03 | disposition home or self-care (01) ==
PROVIDERS: PCP Family Medicine; Visit Provider Physician Assistant
DX: L03.90 Cellulitis, unspecified (principal)
CPT/HCPCS: 36415; 73630; 85025

== ENCOUNTER 2022-12-24 11:01 | Inpatient (IN) | payer MEDICARE, SELFPAY ==
[2022-12-24] VITALS (25 sets, daily range): BP systolic 133–162; BP diastolic 54–84; PULSE 82–133; RESP 20–31; TEMP 36.9–37.4; O2SAT 93–100; BMI 23.6
--- NOTE | ~2022-12-24 | CT_ITS ---
EXAMINATION: CTA chest PE protocol DATE: 12/24/2022 15:18 INDICATION: Shortness of breath. TECHNIQUE: Computed tomography angiography (CTA) of the chest was performed with 100 mL Omnipaque-350 intravenous contrast timed to evaluate the pulmonary arteries. Coronal maximum intensity projection 3D-reconstructions were created by the technologist. Automated exposure control and iterative reconst ruction technique were employed. The dose-length product was 450.78 mGy-cm. COMPARISON: Chest CT 04/05/2021 FINDINGS: The lungs demonstrate mild atelectasis. There is smooth septal thickening in the lungs, con sistent mild pulmonary edema. There are trace pleural effusions. Cardiomegaly is noted. There are cor onary artery calcifications. No pericardial effusion. Calcified left hilar lymph nodes are consistent with old granulomatous disease. There is no pulmonary embolus. There is a moderate-sized sliding hia jeimy hernia. Calcifications in the spleen are consistent with old granulomatous disease. There is calc ified atherosclerosis of the aorta and many of the other arteries. There is severe cervical and thora cic spondylosis. There is a chronic compression fracture of T12. IMPRESSION: 1. No pulmonary embolus. Sensitivity is mildly decreased by motion artifact. 2. Mild pulmonary edema. 3. Trace pleural effusions. 4. Moderate-sized sliding hiatal hernia. Reviewed, dictated and finalized at location E.
--- NOTE | ~2022-12-24 | XR_ITS ---
XR chest 2V 12/24/2022 11:47 Indication: Shortness of breath and congestion. Rhinorrhea. Procedure: 2 view chest Comparison: Comparison to multiple prior studies sequentially, with oldest reviewed study dated 11/2020. Findings: Borderline heart size. Shallow inspiration. Bibasilar atelectasis. No focal pneumonia, doug a, significant effusion or pneumothorax. There is a healed right humeral neck fracture. Impression: 1: No acute cardiopulmonary disease. Reviewed, dictated and finalized at location B. Impression: 1: No acute cardiopulmonary disease.
--- NOTE | ~2022-12-24 | CT_ITS ---
EXAMINATION: CT brain wo con DATE: 12/26/2022 15:43 INDICATION: Mental status changes TECHNIQUE: Computed tomography (CT) of the head was performed without intravenous contrast. Sagittal and coronal reconstructions were performed. The mA was adjusted according to patient size. Iterative reconstruction technique was employed. The dose-length product was 605.33 mGy-cm. COMPARISON: head CT dated 01/31/2022 FINDINGS: Unchanged small region of encephalomalacia at the inferior right occipital lobe consistent with chron ic infarct. No acute intracranial hemorrhage, acute infarction or abnormal extra axial fluid collecti on. There is moderate scattered white matter hypoattenuation consistent with chronic small vessel isc hemic disease. Symmetric prominence of the sulci and ventricles consistent with moderate age-appropri ate diffuse cerebral volume loss. Ventricles are normal and symmetric. No mass/mass effect. Intracran ial calcified cerebral atherosclerosis is noted. Changes of bilateral intraocular lens replacement. The orbits, paranasal sinuses and mastoid air nkechi ls are normal. IMPRESSION: 1. 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 No acute intracranial process. 2. Age-related changes including moderate diffuse volume loss and moderate scattered white matter hyp oattenuation consistent with chronic small vessel ischemic disease. Reviewed, dictated and finalized at location A. IMPRESSION: 1. 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 No acute intracrani al process. 2. Age-related changes including moderate diffuse volume loss and moderate scat tered white matter hypoattenuation consistent with chronic small vessel ischemi c disease.
--- NOTE | ~2022-12-24 | US_ITS ---
EXAMINATION:US venous doppler LE BI INDICATION:Status post catheterization. Left thigh pain and ecchymosis TECHNIQUE: Multiple grayscale, color flow and Doppler images of the right and left lower extremity de ep venous systems were obtained and reviewed. COMPARISON:Ultrasound dated 10/29/2022 FINDINGS: The common femoral, superficial femoral and popliteal veins demonstrate normal respiratory variation, augmentation and compressibility. Color flow is also seen within the posterior tibial, pe roneal, greater saphenous and profunda veins. IMPRESSION: 1: No lower extremity deep venous thrombosis. Reviewed, dictated and finalized at location B.
--- NOTE | ~2022-12-24 | US_ITS ---
US arterial duplex [facility] 12/24/2022 13:07 Indication: Right femoral catheterization. Left femoral stent placement on Tuesday. Ecchymosis. Macie n. Evaluate for pseudoaneurysm. Procedure: Arterial duplex Doppler of the lower extremity arteries including color flow analysis Comparison: No prior studies for comparison. Findings: There is normal Doppler signal throughout the lower extremity arteries bilaterally. No evid ence for pseudoaneurysm. The following peak systolic velocities are obtained: Right: Common femoral artery 90 cm/s, profunda femoral artery, 62 cm/s, superficial femoral artery 14 8 cm/s, popliteal artery 58 cm/s, posterior tibial artery 63 cm/s, dorsalis pedis artery 97 cm/s. Left: Common femoral artery 146 cm/s: Profunda femoral artery 77 cm/s, superficial femoral artery 174 cm/s, popliteal artery 85 cm/s, posterior tibial artery 64 cm/s, peroneal artery 49 cm/s, dorsalis p gilberto artery 44 cm/s. Impression: 1: Lower extremity arteries are patent bilaterally without evidence for pseudoaneurysm. Reviewed, dictated and finalized at location B. Impression: 1: Lower extremity arteries are patent bilaterally without evidence for pseudoa neurysm.
--- NOTE | ~2022-12-24 | CT_ITS ---
EXAMINATION: CT abdomen pelvis wo con DATE: 12/25/2022 15:18 INDICATION: Anemia. Hematomas to the the inner thighs post recent catheterization. TECHNIQUE: Computed tomography (CT) of the abdomen and pelvis was performed without intravenous contr ast. Automated exposure control and iterative reconstruction technique were employed. The dose-length product was 1048.78 mGy-cm. COMPARISON: Chest CT exam dated 12/24/2022 FINDINGS: No significant change in bilateral very small posterior layering pleural effusions with associated de pendent passive atelectasis in the bilateral lower lobes. Additional mild atelectasis at the posterio r inferior lingula. Cardiomegaly. Atherosclerotic coronary artery calcification. Aortic valve calcifi cation. No pericardial effusion. Moderate-sized sliding-type hiatal hernia. Small calcified gallstone at the dependent fundus of the otherwise normal gallbladder. Liver and pancreas are normal. Numerous splenic calcifications consistent with old granulomatous disease. Nodular thickening of the bilatera l adrenal glands which appears unchanged since 04/05/2021 favoring either adrenal hyperplasia or adenom as. 1.4 cm right renal cyst. Kidneys are otherwise unremarkable with no urolithiasis or hydronephrosi s. Postoperative change of prior resection of the cecum with right abdominal ileocolic anastomosis. T here is mild to moderate sigmoid predominant diverticulosis without adjacent inflammatory change to s uggest diverticulitis. No bowel obstruction. There are some residual excreted contrast in the bladder likely related to the earlier contrast-enhanced CT. The uterus is not identified and has likely been surgically resected. No free intraperitoneal gas or fluid. There is a 7.7 x 4.2 x 0.8 cm flat lenti cular fluid collection, most likely seroma, along a region of likely postoperative scarring the deep subcutaneous fat at the anterior pelvis. There is calcified atherosclerosis of the aorta and many of the other arteries. Subcutaneous edema about the abdomen, pelvis and extending to the proximal thighs . No evident hematoma at the inguinal regions. Severe thoracic and lumbar spondylosis. Old healed int ernally fixed intertrochanteric fracture of the proximal right femur. IMPRESSION: 1. Diffuse body wall edema in the abdomen, pelvis and proximal thighs. No evident inguinal hematomas. 2. Unchanged very small bilateral pleural effusions. 3. Moderate-sized sliding-type hiatal hernia. 4. Cholelithiasis. 5. Diverticulosis. 6. Postoperative changes detailed above. Reviewed, dictated and finalized at location A. IMPRESSION: 1. Diffuse body wall edema in the abdomen, pelvis and proximal thighs. No evide nt inguinal hematomas. 2. Unchanged very small bilateral pleural effusions. 3. Moderate-sized sliding-type hiatal hernia. 4. Cholelithiasis. 5. Diverticulosis. 6. Postoperative changes detailed above.
--- NOTE | 2022-12-24 11:29 | ECG_ITS ---
Measurements Intervals Beatrice Rate: 94 P: ME: 0 QRS: 97 QRSD: 124 T: 1 QT: 407 QTc: 510 Interpretive Statements SINUS RHYTHM ATRIAL COUPLETS AND ATRIAL PREMATURE COMPLEXES RIGHT BUNDLE BRANCH BLOCK ABNORMAL ECG COMPARED TO ECG 08/11/2022 13:39:36 NO SIGNIFICANT CHANGES Electronically Signed On 12-24-2022 13:22:48 CDT by Zackery Caldera D.O.
--- NOTE | 2022-12-24 11:40 | ED.GENADULT ---
HPI - General Adult General Chief complaint: Wound/Laceration <GALDINO Sorenson Last Filed: 12/24/22 21:13> Stated complaint: post op issue <GALDINO Sorenson Last Filed: 12/24/22 21:13> Time Seen by Provider: 12/24/22 11:06 <GALDINO Sorenson Last Filed: 12/24/22 21:13> Source: patient and old records reviewed <GALDINO Sorenson Last Filed: 12/24/22 21:13> Mode of arrival: EMS <GALDINO Sorenson Last Filed: 12/24/22 21:13> Limitations: no limitations and dementia <GALDINO Sorenson Last Filed: 12/24/22 21:13> History of Present Illness HPI narrative: Patient is an 87 y/o female who presents to the ED via EMS with multiple complaints. Patient is a poor historian. Patient is a resident of [facility]. She had an outpatient vascular catheterization performed last Tuesday under Dr. Kim. The catheterization was performed through the right groin with a stent placed in her left femoral artery. Patient having pain, swelling, redness to the left upper posterior thigh over the last couple of days. She was started on Plavix after the procedure. She also complains of sinus issues, cough, congestion, rhinorrhea, mild shortness of breath over the last couple days. Denies any fevers. Denies chest pain. <GALDINO Sorenson Last Filed: 12/24/22 21:13> Related Data Home medications: Home Medications Medication Instructions Recorded Confirmed metoprolol tartrate 25 mg tablet 25 mg PO TID 12/12/20 12/24/22 simvastatin 40 mg tablet 40 mg PO HS 12/12/20 12/24/22 calcium carbonate 600 mg calcium 600 mg PO BID 04/15/22 12/24/22 (1,500 mg) tablet omeprazole 20 mg capsule,delayed 20 mg PO DAILY 04/15/22 12/24/22 release aspirin 81 mg tablet,delayed 81 mg PO DAILY 08/11/22 12/24/22 release ferrous sulfate 325 mg (65 mg 325 mg PO HS 08/11/22 12/24/22 iron) capsule,extended release empagliflozin 10 mg tablet 10 mg PO DAILY 11/15/22 12/24/22 (Jardiance) sitagliptin phosphate 100 mg 100 mg PO DAILY 11/15/22 12/24/22 tablet (Januvia) clobetasol 0.05 % scalp solution 1 applic topical DAILY 12/24/22 12/24/22 clopidogrel 75 mg tablet 75 mg PO DAILY 12/24/22 12/24/22 colchicine 0.6 mg tablet 0.6 mg PO DAILY 12/24/22 12/24/22 diphenhydramine HCl 25 mg capsule 25 mg PO Q8H PRN Itching 12/24/22 12/24/22 (Banophen) fluticasone propionate 50 1 spray intranasal BID 12/24/22 12/24/22 mcg/actuation nasal spray,suspension <GALDINO Sorenson Last Filed: 12/24/22 21:13> Allergies/adverse reactions: Allergies Allergy/AdvReac Type Severity Reaction Status Date / Time influenza A (H1N1) virus Allergy Unknown Swelling Verified 12/24/22 16:28 vaccine m-jong-split 2009 of Lip/Tongue/Throat Influenza Virus Vaccines Allergy Unknown Swelling Verified 12/24/22 16:28 of Lip/Tongue/Throat phenobarbital AdvReac Mild Hallucinati Verified 12/24/22 16:28 ng <GALDINO Sorenson Last Filed: 12/24/22 21:13> Review of Systems Review of Systems: CONSTITUTIONAL: Denies fever, chills, or sweats. ENT: See HPI. CARDIOVASCULAR: Denies chest pain. RESPIRATORY: See HPI. GASTROINTESTINAL: Denies abdominal pain, nausea, vomiting. SKIN: See HPI. MUSCULOSKELETAL: See HPI. NEUROLOGIC: Denies headache, numbness, or weakness. <GALDINO Sorenson Last Filed: 12/24/22 21:13> All systems reviewed & are unremarkable except as noted in HPI and below <GALDINO Sorenson Last Filed: 12/24/22 21:13> PMF Past Medical History Medical History: Medical History (Updated 12/27/22 @ 09:46 by Antione Bordy MD) Abnormal urinalysis Amputation toe Anemia History of blood transfusions. Aortic valve stenosis [id number] aortic valve stenosis on echocardiogram in April 2021 with a valve area of 1.1 to 1.5 centimeter mauricio
[2022-12-24 13:13] LABS: Basophils Percent Auto 0.2 % (0.2-1.2); Hematocrit 34.8 % (37.0-47.0); Hemoglobin 11.4 g/dL (12.0-15.0); Immature Granulocyte Absolute 0.13 K/mm3 (0.00-0.031); Lymphocytes Absolute Auto 0.77 K/mm3 (0.9-3.2); Lymphocytes Percent Auto 5.9 % (18.3-44.2); Mean Corpuscular HGB Conc 32.8 g/dl (32-36); Mean Corpuscular Hemoglobin 29.8 pg (26-34); Mean Corpuscular Volume 90.9 fl (80-100); Mean Platelet Volume 9.8 fl (7.4-10.4); Monocytes Absolute Auto 0.4 K/mm3 (0.1-0.6); Monocytes Percent Auto 2.8 % (2.6-8.5); Neutrophils Absolute Auto 11.8 K/mm3 (1.3-6.7); Neutrophils Percent Auto 90.1 % (45.5-73.1); Platelet Count Result 163 k/mm3 (150-375); Red Blood Count 3.83 M/mm3 (4.2-5.4); Red Cell Distribution Width 15.3 % (11.5-14.5); White Blood Count 13.1 K/mm3 (4.5-10.0)
[2022-12-24 13:26] LABS: Prothrombin Time 14.1 Seconds (11.1-14.7)
[2022-12-24 13:27] LABS: Alanine Aminotransferase 22 U/L (6-35); Albumin Level 3.8 g/dL (3.5-5.1); Alkaline Phosphatase 132 U/L (38-126); Anion Gap 9 mmol/L (8-16); Aspartate Amino Transferase 35 U/L (14-36); Bilirubin,Total 0.7 mg/dL (0.2-1.3); Blood Urea Nitrogen 39 mg/dL (7-17); Calcium 8.7 mg/dL (8.4-10.2); Carbon Dioxide 27 mmol/L (22-30); Chloride 93 mmol/L (98-107); Estimated CRCL calculation 22 ml/min; Estimated Glomerular Filt Rate 31; Glucose 284 mg/dL (65-110); Partial Thromboplastin Time 38.4 SECONDS (22.3-36.8); Potassium 3.5 mmol/L (3.4-5.0); Sodium 129 mmol/L (137-145)
[2022-12-24] MEDS: SODIUM CHLORIDE 0.9% IV 1,000 ML 999 ML IV CONT (13:43)
[2022-12-24 13:48] LABS: Influenza A QL RT-PCR Negative (Negative); Influenza B QL RT-PCR Negative (Negative); SARS-CoV-2 RNA PCR Negative (Negative); Troponin I 0.412 ng/mL (0.000-0.034)
--- NOTE | 2022-12-24 15:34 | PC.NURSE ---
Updated [facility] on patient update.
--- NOTE | 2022-12-24 16:17 | PM.IMHP ---
H&P: HPI History of Present Illness Date/Time: 12/24/22 16:17 Chief Complaint: Wound laceration Narrative: this is an 87-year-old female patient who had multiple complaints. She has a very poor historian. The patient resides at [facility]. She is also very hard of hearing. The patient had an outpatient vascular catheterization performed last Tuesday under Dr. Longo the patient has significant bruising to her right growing and then redness and swelling to her left. The patient is incontinent of urine. Her son is at the bedside answering questions for her. The patient was started on Plavix after the procedure. She also complains of sinus issues cough congestion rhinorrhea and shortness of breath for the last couple days. She denies any chest pain. Her white counts noted to be 13.1. H&H is 11.4 And 34.8. her creatinine is 1.6 and previously was 1.2. However her baseline is anywhere from 1.2-1.5. Her sodium is 129 with the typical sodium in the lower 130s. Her blood sugars 321. Her troponin is 0.412, 0.294, and 0.291. The patient does not have any complaints of chest pain. However she was complaining of chest congestion. Chest CTA was read as the following 1. No pulmonary embolus. Sensitivity is mildly decreased by motion artifact. 2. Mild pulmonary edema. 3. Trace pleural effusions. 4. Moderate-sized sliding hiatal hernia. the patient was given IV fluids, aspirin and Ancef in the emergency room. The ER provider reviewed the EKG and noticed that there was no change from her last EKG. The patient is being admitted for observation status on the date of service of 12/24/2022. Review of Systems Review of Systems: All systems reviewed & are unremarkable except as noted in HPI and below Constitutional: Constitutional: Reports as per HPI and Reports no additional constitutional complaints Eyes: Eyes: Reports as per HPI and Reports no additional eye complaints ENT: Reports system reviewed and no additional complaints, except as documented and Reports Normal hearing present Cardiovascular: Cardiovascular: Reports no additional cardiovascular complaints Respiratory: Respiratory: Reports no additional respiratory complaints and Reports no additional respiratory complaints Gastrointestinal: Gastrointestinal: Reports as per HPI and Reports no additional gastrointestinal complaints Musculoskeletal: Musculoskeletal: Reports no additional musculoskeletal complaints Integumentary/Breasts: Skin/Breast: Reports system reviewed and no additional complaints, except as docu and Reports as per HPI Neurologic: Reports system reviewed and no additional complaints, except as documented, Reports as per HPI and Reports Normal hearing present Psychiatric: Psychiatric: Reports no additional psychiatric complaints and Reports as per HPI Endocrine: Endocrine: Reports no additional endocrine complaints Hematologic/Lymphatic: Hematologic/Lymphatic: Reports no additional hematologic/lymphatic complaints Allergic/Immunologic: Allergic/Immunologic: Reports no additional allergic/immunologic complaints [facility] Past Medical History Medical History Abnormal urinalysis Amputation toe Anemia History of blood transfusions. Aortic valve stenosis [id number] aortic valve stenosis on echocardiogram in April 2021 with a valve area of 1.1 to 1.5 centimeter squared. Arthritis Cellulitis of fifth toe, left Cellulitis of left foot Chronic kidney disease, stage 3 Creatinine seems to range between 0.7 and 1.30. Depression Diabetic peripheral neuropathy Diastolic congestive heart failure Echocardiogram on 12/13/2020 showed normal left ventricular size with moderate consent of left ventricular hypertrophy with overall good left ventricular systolic function with an EF measuring 62%. There was hypokinesis of the basal inferoseptal segment as well as grade 1 diastolic dysfuncti
--- NOTE | 2022-12-24 16:19 | PC.NURSE ---
Per VINCENZO Mariee no cultures needed before antibiotics.
[2022-12-24] MEDS: ASPIRIN 81 MG CHEWABLE TABLET 324 MG PO (16:25)
[2022-12-24] MEDS: ceFAZolin 1 GM/NS 50 ML 1 GM/50 ML BAG IVPB (16:25)
[2022-12-24 17:17] LABS: NT Pro B Type Natriuretic Pept > 30000 pg/mL (19.9-100); Troponin I 0.294 ng/mL (0.000-0.034)
--- NOTE | 2022-12-24 17:41 | ADMGEN ---
This patient, Elizabeth Negron, was admitted to IMU Room 206-02. Patient/family oriented to hospital policies and general routines including ID bracelet, bed and alarms, visiting hours, pain management, procedures, bathroom and other care routines, personal items, smoking policy, room service/diet, and visiting hours. Information on how to activate the Rapid Response Team has been discussed. Patient/Family are encouraged to report perceived risks to care and to ask questions if they do not understand what they are told or what they should do.
[2022-12-24 19:29] LABS: Troponin I 0.291 ng/mL (0.000-0.034)
[2022-12-24 19:53] LABS: Glucose Point of Care 321 mg/dl (65-105)
[2022-12-24] MEDS: traZODone HCL 25 MG TABLET PO (23:59)
[2022-12-24] MEDS: MIRTAZAPINE 15 MG TABLET PO (23:59)
[2022-12-24] MEDS: SIMVASTATIN 20 MG TABLET 40 MG PO (23:59)
[2022-12-25] VITALS (17 sets, daily range): BP systolic 102–157; BP diastolic 51–79; PULSE 77–144; RESP 18–20; TEMP 36.1–37.6; O2SAT 94–100
[2022-12-25] MEDS: SODIUM CHLORIDE 0.9% IV 1,000 ML 100 ML IV CONT
--- NOTE | 2022-12-25 | ECHO_ITS ---
Patient Info Name: Elizabeth Negron Age: 87 years : 1935 Gender: Female Ht: 67 in Wt: 154 lbs BSA: 1.82 m2 HR: 98 bpm Technical Quality: Good Exam Date: 12/25/2022 9:00 AM Exam Location: [facility] Patient Status: Inpatient Admit Date: 12/24/2022 Staff Ordering Physician: Blanche Crowe NP Bulbs Farmworker: Carrol Lam RDCS Attending Provider: Jacobo Veliz MD Referring Physician: Sebastien ABDULLAHI; Exam Type: CA echo doppler color flow Study Info Indications I52 - Other heart disorders in diseases classified elsewhere Complete two-dimensional, color flow and Doppler transthoracic echocardiogram is performed. Summary 1. Complete two-dimensional, color flow and Doppler transthoracic echocardiogram is performed. 2. Left ventricular systolic function is hyperdynamic, estimated at >70%. 3. There is mildly increased left ventricular wall thickness. 4. Left atrial chamber dimension is moderately enlarged. 5. There is mild aortic valve stenosis with a peak velocity of 249 cm/s, mean gradient of 12 mmHg, and aortic valve area of 1.4 cm2. 6. There is mild aortic valve calcification. 7. The aortic valve is trileaflet. 8. There is mild to moderate mitral valve regurgitation. 9. No pulmonary hypertension, estimated pulmonary arterial systolic pressure is 23 mmHg. 10. There is mild tricuspid valve regurgitation. Left Ventricle Left ventricular chamber dimension is normal. Left ventricular systolic function is hyperdynamic, estimated at >70%. There is mildly increased left ventricular wall thickness. Left ventricular septal wall motion is normal. The left ventricular diastolic function is abnormal. Right Ventricle Right ventricular chamber dimension is normal. Right ventricular systolic function is normal. Left Atria Left atrial chamber dimension is moderately enlarged. Right Atria Right atrial chamber dimension is normal. Aortic Valve The aortic valve is trileaflet. There is no aortic valve sclerosis. There is mild aortic valve stenosis with a peak velocity of 249 cm/s, mean gradient of 12 mmHg, and aortic valve area of 1.4 cm2. There is no aortic valve regurgitation. There is mild aortic valve calcification. Pulmonic Valve The pulmonic valve is normal. There is no pulmonic valve stenosis. There is no pulmonic regurgitation. Mitral Valve The mitral valve has normal leaflets. There is no mitral valve stenosis. There is mild to moderate mitral valve regurgitation. Tricuspid Valve The tricuspid valve leaflets are normal. There is no significant tricuspid valve stenosis. There is mild tricuspid valve regurgitation. No pulmonary hypertension, estimated pulmonary arterial systolic pressure is 23 mmHg. Pericardium/Pleural The pericardium appears normal. There is no pericardial effusion. Inferior Vena Cava Normal inferior vena cava with >50% collapse upon inspiration consistent with normal right atrial pressure, 5 mmHg. Aorta The aortic root size at the sinus of Valsalva is normal. The prox ascending aorta size is normal. Left Ventricular Outflow Tract Name Value Normal LVOT 2D LVOT Diameter 1.9 cm LVOT Doppler LVOT Peak Gradient 6 mmHg LVOT Mean
[2022-12-25] MEDS: metroNIDAZOLE 500 MG/ISO 100ML 500 MG/100 ML BAG 100 MG IVPB ×4 (00:01→21:37)
[2022-12-25 05:09] LABS: Basophils Percent Auto 0.2 % (0.2-1.2); Eosinophils Absolute Auto 0.1 K/mm3 (0-0.3); Eosinophils Percent Auto 0.6 % (0-4.4); Hematocrit 29.5 % (37.0-47.0); Hemoglobin 9.7 g/dL (12.0-15.0); Immature Granulocyte Absolute 0.11 K/mm3 (0.00-0.031); Immature Granulocyte Percent A 0.9 % (0-0.5); Lymphocytes Absolute Auto 0.25 K/mm3 (0.9-3.2); Mean Corpuscular HGB Conc 32.9 g/dl (32-36); Mean Corpuscular Volume 91.3 fl (80-100); Monocytes Absolute Auto 0.3 K/mm3 (0.1-0.6); Monocytes Percent Auto 2.3 % (2.6-8.5); Neutrophils Absolute Auto 11.7 K/mm3 (1.3-6.7); Platelet Count Result 133 k/mm3 (150-375); Red Blood Count 3.23 M/mm3 (4.2-5.4); Red Cell Distribution Width 15.3 % (11.5-14.5); White Blood Count 12.4 K/mm3 (4.5-10.0)
[2022-12-25 05:19] LABS: Lactic Acid Reflex 1.3 mmol/L (0.7-2.0)
[2022-12-25 05:25] LABS: Alanine Aminotransferase 19 U/L (6-35); Albumin Level 3.2 g/dL (3.5-5.1); Alkaline Phosphatase 131 U/L (38-126); Anion Gap 11 mmol/L (8-16); Aspartate Amino Transferase 35 U/L (14-36); Bilirubin,Total 0.7 mg/dL (0.2-1.3); Blood Urea Nitrogen 35 mg/dL (7-17); Calcium 7.6 mg/dL (8.4-10.2); Carbon Dioxide 19 mmol/L (22-30); Chloride 95 mmol/L (98-107); Estimated CRCL calculation 27 ml/min; Estimated Glomerular Filt Rate 39; Glucose 288 mg/dL (65-110); Magnesium 1.7 mg/dL (1.6-2.3); Potassium 3.2 mmol/L (3.4-5.0); Sodium 125 mmol/L (137-145)
[2022-12-25 05:48] LABS: Hemoglobin A1C 10.2 % (<5.7)
[2022-12-25] MEDS: METOPROLOL TARTRATE 25 MG TABLET PO ×4 (06:21→21:33)
[2022-12-25 06:23] LABS: Thyroid Stimulating Hormone Reflex 0.579 uIU/mL (0.465-4.68)
[2022-12-25 07:51] LABS: Glucose Point of Care 282 mg/dl (65-105)
[2022-12-25] MEDS: FUROSEMIDE 20 MG TABLET PO ×2 (09:50→09:51)
[2022-12-25] MEDS: FERROUS SULFATE 324 MG TABLET PO (10:05)
[2022-12-25] MEDS: COLCHICINE 0.6 MG TABLET PO (10:06)
[2022-12-25] MEDS: CALCIUM CARBONATE (OSCAL) 500 MG TABLET PO ×2 (10:06→15:57)
[2022-12-25] MEDS: ASPIRIN 81 MG ENTERIC TABLET PO (10:06)
[2022-12-25] MEDS: PARoxetine 10 MG TABLET PO (10:06)
[2022-12-25] MEDS: MAGNESIUM OXIDE 400 MG TABLET PO (10:06)
[2022-12-25] MEDS: EZETIMIBE 10 MG TABLET PO (10:06)
[2022-12-25] MEDS: PANTOPRAZOLE 40 MG TABLET PO (10:07)
[2022-12-25] MEDS: EMPAGLIFLOZIN 10 MG TABLET PO (10:08)
[2022-12-25] MEDS: FLUTICASONE PROPIONATE 0.05% NA SPR 16 GM BTL (*BKC) 1 SPRAY NASAL ×2 (10:08→15:57)
[2022-12-25] MEDS: allopurinoL 100 MG TABLET PO (10:08)
[2022-12-25] MEDS: CLOPIDOGREL BISULFATE 75 MG TABLET PO (10:15)
[2022-12-25] MEDS: INSULIN ASPART (*BKC) 100 UNITS/ML SUB-Q ×3 (10:16→16:35)
--- NOTE | 2022-12-25 10:20 | PM.IMPN ---
Progress Note: A&P Assessment and Plan (1) Cellulitis of left lower extremity: Code(s): L03.116 - Cellulitis of left lower limb Status: Acute Assessment and Plan: Patient presents with fatigue, poor appetite and malaise. Symptoms began after placement of left lower extremity arterial stent. Patient has pink blanchable erythema left medial thigh. This could be cellulitis but would also consider possibly related to subcutaneous bleeding from the groin site that has tracked into the thigh. Difficulty differentiating. She has pain in this area. WBC 13K. No fevers. As per cellulitis protocol in a diabetic, patient started on cefepime, Flagyl and vancomycin with pharmacy to dose. Venous Dopplers were found to be negative. Arterial Dopplers were negative. BCx pendig. Follow clinically (2) PAD (peripheral artery disease): Code(s): I73.9 - Peripheral vascular disease, unspecified Status: Acute Assessment and Plan: Patient underwent left lower extremity arterial stent placement on 12/22/[address] Kim. She was admitted for cellulitis and found also to have ecchymosis to the right and left leg. Hgb has dropped from 11.4 to 9.7. Arterial doppler showing no pseudoaneurysm to the right femoral artery. Arterial Doppler also shows bilateral patent lower extremity arteries. Continue ASA and Plavix. Monitor HH closely. If HH drops further, check CT Abd/pelvis. (3) Anemia: Code(s): D64.9 - Anemia, unspecified Status: Chronic Assessment and Plan: As above. Drop in HH could be from IV fluids so will stop. Continue Fe. Follow (4) Elevated troponin: Code(s): R77.8 - Other specified abnormalities of plasma proteins Status: Acute Assessment and Plan: No complaints of chest pain. Troponins elevated at 0.4 on admission and are trending down. Troponins may be elevated related to the kidney disease. No EKG changes. Consider cardiac event related to the procedure 3 days ago and now seeing residual Trop deceleration. Echo ordered and is pending. Cardiology consult. (5) Acute kidney injury: Code(s): N17.9 - Acute kidney failure, unspecified Status: Acute Assessment and Plan: Cr baseline 1.2-1.5. Her creatinine was 1.6 on admission so probably within her baseline. She was started on IV fluids. Potassium okay. Mild metabolic acidosis noted today. Cr down to 1.2. Stop IV fluids. Follow (6) Hyponatremia: Code(s): E87.1 - Hypo-osmolality and hyponatremia Status: Acute Assessment and Plan: Sodium is chronically low in the 130-134 range. Na 129 and has dropped with IV fluids to 125. Stop IV fluids. Suspect related to hyperglycemia and/or paxil/remeron and/or CHF. Will check urine studies. Add NaCl tablets. Correct glucose (7) Diabetes mellitus with chronic kidney disease: Qualifiers: Diabetes mellitus type: type 2 Diabetes mellitus fci insulin use: without fci use Chronic kidney disease stage: stage 3 (moderate) Chronic kidney disease stage 3 subtype: stage 3b (GFR 30-44) Qualified Code(s): E11.22 - Type 2 diabetes mellitus with diabetic chronic kidney disease; N18.32 - Chronic kidney disease, stage 3b Code(s): E11.22 - Type 2 diabetes mellitus with diabetic chronic kidney disease Status: Acute Assessment and Plan: A1c 10.2. The patient's blood glucose was reviewed on 12/25 Glucose poorly controlled but not unexpected given her elevated A1c. Continue AccuCheks covering with sliding scale. Hypoglycemia protocol available as needed. Continue current medications. Add lantus (8) Diastolic congestive heart failure: Code(s): I50.30 - Unspecified diastolic (congestive) heart failure Status: Acute Assessment and Plan: Patient has a hx of dCHF. BNP >30K but CXR clear and not clearly fluid overloaded clinically. Echo ordered. Continue metoprolol, Lasix and Jardiance. Stop IV flui
[2022-12-25] MEDS: POTASSIUM CHLORIDE 20 MEQ PACKET (FOR LIQUID) 40 MEQ PO (10:25)
[2022-12-25 12:02] LABS: Glucose Point of Care 343 mg/dl (65-105)
[2022-12-25 12:24] LABS: Hematocrit 28.3 % (37.0-47.0); Hemoglobin 9.2 g/dL (12.0-15.0)
[2022-12-25 12:33] LABS: Creatine Kinase 66 U/L (30-135)
[2022-12-25] MEDS: MAGNESIUM SULF 2 GM/WATER 50ML 2 GM/50 ML BAG IVPB (13:02)
[2022-12-25] MEDS: SODIUM CHLORIDE 1 GM TABLET PO ×2 (13:02→16:05)
[2022-12-25 14:51] LABS: Anion Gap 7 mmol/L (8-16); Blood Urea Nitrogen 37 mg/dL (7-17); Calcium 7.6 mg/dL (8.4-10.2); Carbon Dioxide 24 mmol/L (22-30); Chloride 97 mmol/L (98-107); Estimated CRCL calculation 24 ml/min; Estimated Glomerular Filt Rate 33; Glucose 288 mg/dL (65-110); Potassium 3.4 mmol/L (3.4-5.0); Sodium 128 mmol/L (137-145)
[2022-12-25 16:39] LABS: Glucose Point of Care 301 mg/dl (65-105)
[2022-12-25 18:42] LABS: Hematocrit 31.8 % (37.0-47.0); Hemoglobin 10.4 g/dL (12.0-15.0)
[2022-12-25 18:53] LABS: Sodium 129 mmol/L (137-145)
[2022-12-25 19:54] LABS: Glucose Point of Care 183 mg/dl (65-105)
[2022-12-25] MEDS: SIMVASTATIN 20 MG TABLET 40 MG PO (20:24)
[2022-12-25] MEDS: MIRTAZAPINE 15 MG TABLET PO (20:24)
[2022-12-25] MEDS: INSULIN GLARGINE (*BKC) 100 UNITS/ML 8 UNITS SUB-Q (20:24)
[2022-12-25] MEDS: LIDOCAINE HCL 1% LOCAL INJ 2 ML AMPUL 5 ML INFILTRATE (21:00)
[2022-12-25] MEDS: SALINE LOCK FLUSH 10 ML IV PUSH (22:01)
[2022-12-25] MEDS: CEFEPIME 1 GM/NS 50 ML 1 GM/50 ML BAG IVPB ×2 (22:30)
[2022-12-26] VITALS (18 sets, daily range): BP systolic 112–151; BP diastolic 54–85; PULSE 54–128; RESP 18–30; TEMP 36.2–37.3; O2SAT 90–99
[2022-12-26 00:27] LABS: Hemoglobin 9.6 g/dL (12.0-15.0)
[2022-12-26 00:33] LABS: Sodium 127 mmol/L (137-145)
[2022-12-26 00:44] LABS: Eosinophil Urine None Seen % (None Seen); Urine Eos QC 2nd Tech Confirmed
[2022-12-26 01:27] LABS: Creatinine Urine 46.9 mg/dL
[2022-12-26 01:36] LABS: Sodium Urine Random 12 meq/L
--- NOTE | 2022-12-26 01:59 | ECG_ITS ---
Measurements Intervals [place] Rate: 117 P: [place]: 0 QRS: 99 QRSD: 122 T: -7 QT: 313 QTc: 438 Interpretive Statements ATRIAL FIBRILLATION WITH RAPID VENTRICULAR RESPONSE RIGHT BUNDLE BRANCH BLOCK BASELINE ARTIFACT- V1-V3 ABNORMAL ECG COMPARED TO ECG 12/24/2022 12:40:53 ATRIAL FIBRILLATION NOW PRESENT Electronically Signed On 12-26-2022 7:05:30 CDT by Zackery Caldera D.O.
[2022-12-26] MEDS: metroNIDAZOLE 500 MG/ISO 100ML 500 MG/100 ML BAG 100 MG IVPB ×3 (04:48→22:57)
[2022-12-26] MEDS: METOPROLOL TARTRATE 25 MG TABLET PO ×4 (04:49→23:00)
[2022-12-26] MEDS: SALINE LOCK FLUSH 10 ML IV PUSH ×3 (04:49→22:58)
[2022-12-26 05:08] LABS: Basophils Percent Auto 0.2 % (0.2-1.2); Hematocrit 31.2 % (37.0-47.0); Hemoglobin 10.2 g/dL (12.0-15.0); Immature Granulocyte Absolute 0.25 K/mm3 (0.00-0.031); Immature Granulocyte Percent A 1.8 % (0-0.5); Lymphocytes Absolute Auto 0.62 K/mm3 (0.9-3.2); Lymphocytes Percent Auto 4.6 % (18.3-44.2); Mean Corpuscular HGB Conc 32.7 g/dl (32-36); Mean Corpuscular Hemoglobin 29.7 pg (26-34); Mean Corpuscular Volume 90.7 fl (80-100); Mean Platelet Volume 10.1 fl (7.4-10.4); Monocytes Absolute Auto 0.3 K/mm3 (0.1-0.6); Monocytes Percent Auto 2.3 % (2.6-8.5); Neutrophils Absolute Auto 12.4 K/mm3 (1.3-6.7); Neutrophils Percent Auto 91.1 % (45.5-73.1); Platelet Count Result 152 k/mm3 (150-375); Red Blood Count 3.44 M/mm3 (4.2-5.4); Red Cell Distribution Width 15.5 % (11.5-14.5); White Blood Count 13.6 K/mm3 (4.5-10.0)
[2022-12-26 05:20] LABS: Albumin Level 3.3 g/dL (3.5-5.1); Anion Gap 8 mmol/L (8-16); Blood Urea Nitrogen 37 mg/dL (7-17); Calcium 8.1 mg/dL (8.4-10.2); Carbon Dioxide 25 mmol/L (22-30); Chloride 96 mmol/L (98-107); Estimated CRCL calculation 25 ml/min; Estimated Glomerular Filt Rate 36; Glucose 169 mg/dL (65-110); Phosphorus 2.4 mg/dL (2.5-4.5); Potassium 3.2 mmol/L (3.4-5.0); Sodium 129 mmol/L (137-145)
[2022-12-26 08:22] LABS: Glucose Point of Care 192 mg/dl (65-105)
[2022-12-26 08:35] LABS: Glucose Point of Care 203 mg/dl (65-105)
[2022-12-26] MEDS: COLCHICINE 0.6 MG TABLET PO (10:44)
[2022-12-26] MEDS: FUROSEMIDE 20 MG TABLET PO (10:45)
[2022-12-26] MEDS: PARoxetine 10 MG TABLET PO (10:45)
[2022-12-26] MEDS: ASPIRIN 81 MG ENTERIC TABLET PO (10:45)
[2022-12-26] MEDS: allopurinoL 100 MG TABLET PO (10:45)
[2022-12-26] MEDS: EZETIMIBE 10 MG TABLET PO (10:45)
[2022-12-26] MEDS: FERROUS SULFATE 324 MG TABLET PO (10:45)
[2022-12-26] MEDS: SODIUM CHLORIDE 1 GM TABLET PO ×2 (10:45→18:32)
[2022-12-26] MEDS: EMPAGLIFLOZIN 10 MG TABLET PO (10:45)
--- NOTE | 2022-12-26 10:45 | PM.CNCAR ---
Assessment and Plan Assessment and plan (1) Elevated troponin: Code(s): R77.8 - Other specified abnormalities of plasma proteins Status: Acute Assessment and Plan: In regards to troponin elevation, suspect demand ischemia from cellulitis. No ischemic changes on EKG. Patient denies chest pain. Continue aspirin and Plavix. totl time spent on this consult was 82 minutes including reviewing medical records from Dr. sheikh office, speaking to her son , nurse and primary team (2) PAF (paroxysmal atrial fibrillation): Code(s): I48.0 - Paroxysmal atrial fibrillation Status: Acute Assessment and Plan: In regards to episodes of paroxysmal atrial tachycardia and paroxysmal atrial fibrillation, recommend to increase metoprolol to 25 mg q.6 hours. Not candidate for anticoagulation at this time due to extensive bruising scan and possible bleeding in the left thigh. (3) Cellulitis of left lower extremity: Code(s): L03.116 - Cellulitis of left lower limb Status: Acute Assessment and Plan: Continue antibiotics (4) PAD (peripheral artery disease): Code(s): I73.9 - Peripheral vascular disease, unspecified Status: Acute Assessment and Plan: Continue aspirin, Plavix. Patient received a stent to left SFA last week with Dr. longo (5) Stage 3b chronic kidney disease: Code(s): N18.32 - Chronic kidney disease, stage 3b Status: Acute Assessment and Plan: Stable. Continue to monitor. Agree with replenishing potassium. History of Present Illness History of Present Illness Consult date/time: Date of service 12/26/22 10:45 Requesting physician: Antione Brody MD Reason For Visit: elevated troponin s/p femoral,lle cellulitis,hypon Narrative: This is a 87-year-old female who follows up with Dr. Sheikh and with past medical history of diastolic heart failure, moderate aortic stenosis, history of PVCs, dm, anxiety. Apparently patient resides in admissions assistant living.? She is also very hard of hearing.? The patient had an outpatient vascular catheterization performed last Tuesday under Dr. Longo? the patient has significant bruising to her right growing and then redness and swelling to her left.? The patient is incontinent of urine.? ? The patient was started on Plavix after the procedure.? She also complains of sinus issues cough congestion rhinorrhea and shortness of breath for the last couple days.? She denies any chest pain.? the erythema of the left leg is more today. Feels warm to touch. Patient doesn't have significant discomfort. HR sinus tach with frequent PACs, runs of atrial tachycardia and also atrial fibrillation. Her white counts 13.1.? Hemoglobin 11.4 , 9.6, 10.2. Potassium today 3.2, her creatinine is 1.6 and previously was 1.2. Today 1.4 however her baseline is anywhere from 1.2-1.5.? Her sodium is 129 with the typical sodium in the lower 130s.? Her blood sugars 321.? troponin is 0.412, 0.294, and 0.291.? The Viral panel negative. CT abdomen and pelvis:1. Diffuse body wall edema in the abdomen, pelvis and proximal thighs. No evident inguinal hematomas. 2. Unchanged very small bilateral pleural effusions. 3. Moderate-sized sliding-type hiatal hernia. 4. Cholelithiasis. 5. Diverticulosis. 6. Postoperative changes detailed above. CTA thorax:IMPRESSION: 1. No pulmonary embolus. Sensitivity is mildly decreased by motion artifact. 2. Mild pulmonary edema. 3. Trace pleural effusions. 4. Moderate-sized sliding hiatal hernia. Ultrasound arterial: Shows patent femoral artery, no pseudoaneurysm. EKG reviewed and analyzed myself showed sinus tachycardia with very frequent supraventricular ectopic beats. Echocardiogram done yesterday: 1. Complete two-dimensional, color flow and Doppler transthoracic echocardiogram is performed. ? 2. Left ventricular systolic function is hyperdynamic, estimated at >70%. ? 3. There is mildly increased
[2022-12-26] MEDS: CLOPIDOGREL BISULFATE 75 MG TABLET PO (10:46)
[2022-12-26] MEDS: INSULIN ASPART (*BKC) 100 UNITS/ML SUB-Q ×4 (10:46→20:29)
[2022-12-26] MEDS: PANTOPRAZOLE 40 MG TABLET PO (10:46)
[2022-12-26] MEDS: MAGNESIUM OXIDE 400 MG TABLET PO (10:46)
[2022-12-26] MEDS: CALCIUM CARBONATE (OSCAL) 500 MG TABLET PO ×2 (10:46→18:32)
[2022-12-26] MEDS: FLUTICASONE PROPIONATE 0.05% NA SPR 16 GM BTL (*BKC) 1 SPRAY NASAL ×2 (10:47→18:31)
[2022-12-26] MEDS: POTASSIUM CHLORIDE 20 MEQ PACKET (FOR LIQUID) 40 MEQ PO (10:47)
[2022-12-26] MEDS: POTASSIUM/PHOSPHORUS/SODIUM 1.5 GM PACKET 1 PACKET PO (13:05)
[2022-12-26] MEDS: VANCOMYCIN 1,000 MG/NS 250 ML 1,000 MG/250 ML BAG 250 MG IVPB (13:05)
--- NOTE | 2022-12-26 13:14 | PM.IMPN ---
Progress Note: A&P Assessment and Plan (1) Cellulitis of left lower extremity: Code(s): L03.116 - Cellulitis of left lower limb Status: Acute Assessment and Plan: Patient presents with fatigue, poor appetite and malaise. Symptoms began after placement of left lower extremity arterial stent. Patient has pink blanchable erythema left medial thigh that is warm and tender. Probably cellulitis. She has pain in this area. WBC 13K and unchanged. No fevers. Venous Dopplers were found to be negative. Arterial Dopplers were negative. As per cellulitis protocol in a diabetic, patient started on cefepime, Flagyl and vancomycin with pharmacy to dose. BCx NGTD. MRSA nasal swab negative. Continue current abx until showing signs of improvement. Follow clinically (2) PAD (peripheral artery disease): Code(s): I73.9 - Peripheral vascular disease, unspecified Status: Acute Assessment and Plan: Patient underwent left lower extremity arterial stent placement on 12/22/[address] Kim (right femoral approach). She was admitted for cellulitis and found also to have ecchymosis to the right and left leg. Hgb has dropped from 11.4 to 9.7. Arterial doppler showing no pseudoaneurysm to the right femoral artery. Arterial Doppler also shows bilateral patent lower extremity arteries. CT A/P showing no hematoma. Hgb stable. Continue ASA and Plavix. Monitor HH closely. (3) Anemia: Code(s): D64.9 - Anemia, unspecified Status: Chronic Assessment and Plan: As above. Hgb was 11.4 on admission but dropped to 9 range. Drop in HH could be from IV fluids so these were stopped. We continued Fe. Hgb stable in the 9-10 range. Follow (4) Elevated troponin: Code(s): R77.8 - Other specified abnormalities of plasma proteins Status: Acute Assessment and Plan: No complaints of chest pain. Troponins elevated at 0.4 on admission and are trending down. Troponins may be elevated related to the kidney disease. No EKG changes. Consider cardiac event related to the procedure 3 days ago and now seeing residual Trop deceleration. Echo showing EF 70% with diastolic dysfunction, mild , mild-mod MR. [place] to be demand ischaemia. Cardiology consulted and appreciate their input. (5) Acute kidney injury: Code(s): N17.9 - Acute kidney failure, unspecified Status: Acute Assessment and Plan: Cr baseline 1.2-1.5. Her creatinine was 1.6 on admission so probably within her baseline. She was started on IV fluids. Potassium okay. Mild metabolic acidosis noted today. Cr 1.4 today. Follow (6) Hyponatremia: Code(s): E87.1 - Hypo-osmolality and hyponatremia Status: Acute Assessment and Plan: Sodium is chronically low in the 130-134 range. Na 129 but dropped to 125. Suspect related to hyperglycemia and/or paxil/remeron and/or CHF. NaCl tablets added. Correcting glucose. Na 129 today Follow (7) Diabetes mellitus with chronic kidney disease: Qualifiers: Diabetes mellitus type: type 2 Diabetes mellitus fdc insulin use: without fdc use Chronic kidney disease stage: stage 3 (moderate) Chronic kidney disease stage 3 subtype: stage 3b (GFR 30-44) Qualified Code(s): E11.22 - Type 2 diabetes mellitus with diabetic chronic kidney disease; N18.32 - Chronic kidney disease, stage 3b Code(s): E11.22 - Type 2 diabetes mellitus with diabetic chronic kidney disease Status: Acute Assessment and Plan: A1c 10.2. The patient's blood glucose was reviewed on 12/26 Glucose better controlled this morning at 169 Continue AccuCheks covering with sliding scale. Hypoglycemia protocol available as needed. Continue diabetic diet. Continue current medications. Advance Lantus (8) Diastolic congestive heart failure: Code(s): I50.30 - Unspecified diastolic (congestive) heart failure Status: Acute Assessment and Plan: Patient has a hx of dCHF. BNP
[2022-12-26 16:35] LABS: Glucose Point of Care 250 mg/dl (65-105)
[2022-12-26 19:40] LABS: Glucose Point of Care 312 mg/dl (65-105)
[2022-12-26] MEDS: INSULIN GLARGINE (*BKC) 100 UNITS/ML 10 UNITS SUB-Q (20:29)
[2022-12-26] MEDS: MIRTAZAPINE 15 MG TABLET PO (20:31)
[2022-12-26] MEDS: SIMVASTATIN 20 MG TABLET 40 MG PO (20:31)
[2022-12-26] MEDS: traZODone HCL 25 MG TABLET PO (20:31)
[2022-12-26] MEDS: CEFEPIME 1 GM/NS 50 ML 1 GM/50 ML BAG IVPB (22:58)
[2022-12-26] MEDS: diphenhydrAMINE HCl CAP 25 MG CAPSULE PO (23:00)
[2022-12-27] VITALS (20 sets, daily range): BP systolic 120–141; BP diastolic 49–62; PULSE 67–96; RESP 18–28; TEMP 35.8–38.2; O2SAT 96–100
[2022-12-27 04:05] LABS: Basophils Percent Auto 0.1 % (0.2-1.2); Hematocrit 27.7 % (37.0-47.0); Hemoglobin 8.9 g/dL (12.0-15.0); Immature Granulocyte Percent A 1.1 % (0-0.5); Lymphocytes Absolute Auto 0.57 K/mm3 (0.9-3.2); Lymphocytes Percent Auto 6.2 % (18.3-44.2); Mean Corpuscular HGB Conc 32.1 g/dl (32-36); Mean Corpuscular Hemoglobin 29.2 pg (26-34); Mean Corpuscular Volume 90.8 fl (80-100); Mean Platelet Volume 10.6 fl (7.4-10.4); Monocytes Absolute Auto 0.3 K/mm3 (0.1-0.6); Monocytes Percent Auto 3.1 % (2.6-8.5); Neutrophils Absolute Auto 8.2 K/mm3 (1.3-6.7); Neutrophils Percent Auto 89.5 % (45.5-73.1); Platelet Count Result 142 k/mm3 (150-375); Red Blood Count 3.05 M/mm3 (4.2-5.4); Red Cell Distribution Width 15.7 % (11.5-14.5); White Blood Count 9.2 K/mm3 (4.5-10.0)
[2022-12-27 04:18] LABS: Albumin Level 2.7 g/dL (3.5-5.1); Anion Gap 5 mmol/L (8-16); Blood Urea Nitrogen 39 mg/dL (7-17); Calcium 7.8 mg/dL (8.4-10.2); Carbon Dioxide 26 mmol/L (22-30); Chloride 100 mmol/L (98-107); Estimated CRCL calculation 22 ml/min; Estimated Glomerular Filt Rate 31; Glucose 145 mg/dL (65-110); Magnesium 1.9 mg/dL (1.6-2.3); Phosphorus 2.6 mg/dL (2.5-4.5); Potassium 3.5 mmol/L (3.4-5.0); Sodium 131 mmol/L (137-145)
[2022-12-27] MEDS: SALINE LOCK FLUSH 10 ML IV PUSH ×3 (06:13→23:14)
[2022-12-27] MEDS: metroNIDAZOLE 500 MG/ISO 100ML 500 MG/100 ML BAG 100 MG IVPB (06:13)
[2022-12-27] MEDS: METOPROLOL TARTRATE 25 MG TABLET PO ×4 (06:13→23:14)
[2022-12-27] MEDS: ACETAMINOPHEN 500 MG TABLET PO (06:13)
[2022-12-27 08:00] LABS: Glucose Point of Care 162 mg/dl (65-105)
[2022-12-27] MEDS: EMPAGLIFLOZIN 10 MG TABLET PO (09:08)
[2022-12-27] MEDS: PARoxetine 10 MG TABLET PO (09:08)
[2022-12-27] MEDS: ASPIRIN 81 MG ENTERIC TABLET PO (09:08)
[2022-12-27] MEDS: COLCHICINE 0.6 MG TABLET PO (09:09)
[2022-12-27] MEDS: CALCIUM CARBONATE (OSCAL) 500 MG TABLET PO ×2 (09:09→18:25)
[2022-12-27] MEDS: FERROUS SULFATE 324 MG TABLET PO (09:09)
[2022-12-27] MEDS: MAGNESIUM OXIDE 400 MG TABLET PO (09:10)
[2022-12-27] MEDS: PANTOPRAZOLE 40 MG TABLET PO (09:10)
[2022-12-27] MEDS: SODIUM CHLORIDE 1 GM TABLET PO ×2 (09:10→18:24)
[2022-12-27] MEDS: CLOPIDOGREL BISULFATE 75 MG TABLET PO (09:10)
[2022-12-27] MEDS: EZETIMIBE 10 MG TABLET PO (09:11)
[2022-12-27] MEDS: allopurinoL 100 MG TABLET PO (09:11)
[2022-12-27] MEDS: FUROSEMIDE 20 MG TABLET PO (09:11)
[2022-12-27] MEDS: FLUTICASONE PROPIONATE 0.05% NA SPR 16 GM BTL (*BKC) 1 SPRAY NASAL ×2 (09:12→18:24)
--- NOTE | 2022-12-27 09:26 | PM.IMPN ---
Progress Note: A&P Assessment and Plan (1) Cellulitis of left lower extremity: Code(s): L03.116 - Cellulitis of left lower limb Status: Acute Assessment and Plan: Patient presents with fatigue, poor appetite and malaise. Symptoms began after placement of left lower extremity arterial stent. Patient has pink blanchable erythema left medial and lateral thigh that is warm and tender. Probably cellulitis. She had pain in this area. WBC 13K and now normal but with low grade fever this morning. Venous Dopplers were negative for DVT. Arterial Dopplers were negative. As per cellulitis protocol in a diabetic, patient started on cefepime, Flagyl and vancomycin with pharmacy to dose. BCx NGTD. MRSA nasal swab negative. Low grade temp could be atelectasis. Will stop Vanco and adjust abx. Follow clinically (2) PAD (peripheral artery disease): Code(s): I73.9 - Peripheral vascular disease, unspecified Status: Acute Assessment and Plan: Patient underwent left lower extremity arterial stent placement on 12/22/[address] Kim (right femoral approach). She was admitted for cellulitis and found also to have ecchymosis to the right leg. Hgb has dropped from 11.4 to 8.9. Arterial doppler showing no pseudoaneurysm to the right femoral artery. Arterial Doppler also shows bilateral patent lower extremity arteries. CT A/P showing no hematoma. Hgb up and down. Continue ASA and Plavix. Monitor HH closely. Son states that we can begin PT/OT 4-5 days post-procedure so will order PT/OT today. (3) Anemia: Code(s): D64.9 - Anemia, unspecified Status: Chronic Assessment and Plan: As above. Hgb was 11.4 on admission but dropped to 9 range. Drop in HH could be from IV fluids so these were stopped. We continued Fe. Hgb stable in the 9-10 range. Follow (4) Elevated troponin: Code(s): R77.8 - Other specified abnormalities of plasma proteins Status: Acute Assessment and Plan: No complaints of chest pain. Troponins elevated at 0.4 on admission and are trending down. Troponins may be elevated related to the kidney disease. No EKG changes. Consider cardiac event related to the procedure 3 days ago and now seeing residual Trop deceleration. Echo showing EF 70% with diastolic dysfunction, mild , mild-mod MR. [place] to be demand ischaemia. Cardiology consulted and appreciate their input. (5) Diastolic congestive heart failure: Code(s): I50.30 - Unspecified diastolic (congestive) heart failure Status: Acute Assessment and Plan: Patient has a hx of dCHF. BNP >30K but CXR clear and was not clearly fluid overloaded clinically. Left pedal edema probably related to cellulitis. Echo as above. Continue metoprolol, Lasix and Jardiance. Mild edema noted. +Fluid balance. Lasix IV once. (6) Chronic kidney disease, stage 3: Code(s): N18.30 - Chronic kidney disease, stage 3 unspecified Status: Acute Assessment and Plan: Cr baseline 1.2-1.5. Her creatinine was 1.6 on admission so probably within her baseline. She was started on IV fluids. Potassium was okay. Mild metabolic acidosis noted today. IV fluids off now. She does have edema noted but lungs clear. Cr 1.6 and suspect at her baseline. Potassium normal Follow (7) Hyponatremia: Code(s): E87.1 - Hypo-osmolality and hyponatremia Status: Acute Assessment and Plan: Sodium is chronically low in the 130-134 range. Na 129 but dropped to 125. Suspect related to hyperglycemia and/or paxil/remeron and/or CHF. NaCl tablets added. Correcting glucose. Na 131 today Follow (8) Diabetes mellitus with chronic kidney disease: Qualifiers: Chronic kidney disease stage: stage 3 (moderate) Chronic kidney disease stage 3 subtype: stage 3b (GFR 30-44) Diabetes mellitus machine [employer] goods helper insulin use: without group home use Diabetes mellitus type: type 2 Qualified Code(s): E11.22 - Type 2 diabetes mellitus w
--- NOTE | 2022-12-27 10:30 | PM.PNCARD ---
Progress Note: A&P Assessment and Plan (1) Elevated troponin: Code(s): R77.8 - Other specified abnormalities of plasma proteins Status: Acute Assessment and Plan: In regards to troponin elevation, suspect demand ischemia from cellulitis. No ischemic changes on EKG. Patient denies chest pain. Continue aspirin and Plavix. (2) PAF (paroxysmal atrial fibrillation): Code(s): I48.0 - Paroxysmal atrial fibrillation Status: Acute Assessment and Plan: In regards to episodes of paroxysmal atrial tachycardia and paroxysmal atrial fibrillation, heart rate much better with metoprolol 25 mg q.6 hours. Continue with this and when she is more stable we will change to b.i.d. at a later date Not candidate for anticoagulation at this time due to extensive bruising scan and possible bleeding in the left thigh. Replenish potassium (3) Cellulitis of left lower extremity: Code(s): L03.116 - Cellulitis of left lower limb Status: Acute Assessment and Plan: Continue antibiotics. Today he looks much converter and much improved. Her white cell count much better as well. (4) PAD (peripheral artery disease): Code(s): I73.9 - Peripheral vascular disease, unspecified Status: Acute Assessment and Plan: Continue aspirin, Plavix. Patient received a stent to left SFA last week with Dr. francis (5) Stage 3b chronic kidney disease: Code(s): N18.32 - Chronic kidney disease, stage 3b Status: Acute Assessment and Plan: Stable. Continue to monitor. Order potassium chloride 40 mEq x 1 today Subjective Date/time seen: 12/27/22 10:30 Interval history: Date of service 12/27/2022-his son is on bedside. The left lower extremity erythema is much better today. Son states that she is more awake today. She has less episodes of tachycardia on telemetry compared to yesterday. Review of Systems Constitutional: Constitutional: Denies chills, Denies fever(s) and Denies poor appetite Eyes: Eyes: Denies eye discharge, Denies loss of vision, Denies eye pain and Denies photophobia ENT: Denies dizziness, Denies epistaxis, Denies nasal congestion and Denies sore throat Cardiovascular: Cardiovascular: Denies chest pain, Denies syncope, Denies pedal edema, Denies leg edema, Denies palpitations, Denies dyspnea, Denies dyspnea on exertion and Denies orthopnea Respiratory: Respiratory: Denies cough, Denies dyspnea, Denies dyspnea on exertion and Denies wheezing Gastrointestinal: Gastrointestinal: Denies abdominal pain, Denies diarrhea, Denies nausea and Denies vomiting Genitourinary: Genitourinary: Denies hematuria, Denies genital lesions and Denies dysuria Musculoskeletal: Musculoskeletal: Denies arthralgias, Denies joint swelling and Denies numbness Integumentary/Breasts: Skin/Breast: Denies pruritus and Denies rash Neurologic: Denies dizziness, Denies syncope, Denies loss of vision and Denies numbness Psychiatric: Psychiatric: Denies anxiety and Denies depression Endocrine: Endocrine: Denies cold intolerance, Denies heat intolerance and Denies palpitations Hematologic/Lymphatic: Hematologic/Lymphatic: Denies easy bleeding and Denies easy bruising Allergic/Immunologic: Allergic/Immunologic: Denies urticaria and Denies wheezing Exam Const: General: cooperative, comfortable, no acute distress, alert, awake and well nourished Nutritional Appearance: well nourished Orientation/consciousness: patient oriented x3 HENMT: Head: normal to inspection, normocephalic and atraumatic Ears: hearing grossly normal bilaterally Face/Nose/Sinus: Normal external nose present, Normal nares present, no nasal discharge noted, normal facial exam and No erythema Face and sinus: normal facial exam and no erythema Mouth: No drooling and No restricted motion Throat: uvula midline Eyes: General: appearance normal, both eyes and all related structures Alignment and Position: position normal Co
[2022-12-27] MEDS: cefTRIAXone 2 GM/NS 100 ML 2 GM/100 ML BAG IVPB (11:00)
[2022-12-27] MEDS: POTASSIUM CHLORIDE 20 MEQ PACKET (FOR LIQUID) 40 MEQ PO (11:00)
[2022-12-27 11:35] LABS: Glucose Point of Care 264 mg/dl (65-105)
[2022-12-27] MEDS: INSULIN ASPART (*BKC) 100 UNITS/ML SUB-Q ×2 (11:35→20:24)
[2022-12-27] MEDS: FUROSEMIDE INJ 40 MG/4 ML VIAL IV PUSH (11:38)
[2022-12-27 16:29] LABS: Glucose Point of Care 196 mg/dl (65-105)
[2022-12-27 19:51] LABS: Glucose Point of Care 276 mg/dl (65-105)
[2022-12-27] MEDS: INSULIN GLARGINE (*BKC) 100 UNITS/ML 10 UNITS SUB-Q (20:23)
[2022-12-27] MEDS: MIRTAZAPINE 15 MG TABLET PO (20:26)
[2022-12-27] MEDS: traZODone HCL 25 MG TABLET PO (20:26)
[2022-12-27] MEDS: SIMVASTATIN 20 MG TABLET 40 MG PO (20:50)
[2022-12-28] VITALS (14 sets, daily range): BP systolic 115–128; BP diastolic 56–61; PULSE 72–88; RESP 16–20; TEMP 36.2–36.3; O2SAT 96–100
[2022-12-28 04:52] LABS: Basophils Percent Auto 0.3 % (0.2-1.2); Eosinophils Percent Auto 0.2 % (0-4.4); Hematocrit 28.3 % (37.0-47.0); Hemoglobin 9.2 g/dL (12.0-15.0); Immature Granulocyte Absolute 0.08 K/mm3 (0.00-0.031); Immature Granulocyte Percent A 0.9 % (0-0.5); Lymphocytes Absolute Auto 0.62 K/mm3 (0.9-3.2); Lymphocytes Percent Auto 6.7 % (18.3-44.2); Mean Corpuscular HGB Conc 32.5 g/dl (32-36); Mean Corpuscular Hemoglobin 29.8 pg (26-34); Mean Corpuscular Volume 91.6 fl (80-100); Mean Platelet Volume 10.5 fl (7.4-10.4); Monocytes Absolute Auto 0.3 K/mm3 (0.1-0.6); Neutrophils Absolute Auto 8.2 K/mm3 (1.3-6.7); Neutrophils Percent Auto 88.9 % (45.5-73.1); Platelet Count Result 155 k/mm3 (150-375); Red Blood Count 3.09 M/mm3 (4.2-5.4); Red Cell Distribution Width 15.9 % (11.5-14.5); White Blood Count 9.3 K/mm3 (4.5-10.0)
[2022-12-28 05:09] LABS: Albumin Level 2.9 g/dL (3.5-5.1); Anion Gap 8 mmol/L (8-16); Blood Urea Nitrogen 39 mg/dL (7-17); Calcium 7.6 mg/dL (8.4-10.2); Carbon Dioxide 21 mmol/L (22-30); Chloride 98 mmol/L (98-107); Estimated CRCL calculation 22 ml/min; Estimated Glomerular Filt Rate 31; Glucose 151 mg/dL (65-110); Magnesium 1.9 mg/dL (1.6-2.3); Phosphorus 2.9 mg/dL (2.5-4.5); Potassium 3.3 mmol/L (3.4-5.0); Sodium 127 mmol/L (137-145)
[2022-12-28 05:22] LABS: CRP 21.5 mg/dL (<1.0)
[2022-12-28] MEDS: SALINE LOCK FLUSH 10 ML IV PUSH ×3 (05:28→21:08)
[2022-12-28] MEDS: METOPROLOL TARTRATE 25 MG TABLET PO ×2 (05:28→08:31)
[2022-12-28 08:06] LABS: Glucose Point of Care 154 mg/dl (65-105)
[2022-12-28] MEDS: MECLIZINE HCL 12.5 MG TABLET PO (08:32)
[2022-12-28] MEDS: ASPIRIN 81 MG ENTERIC TABLET PO (08:32)
[2022-12-28] MEDS: FLUTICASONE PROPIONATE 0.05% NA SPR 16 GM BTL (*BKC) 1 SPRAY NASAL ×2 (08:32→16:47)
[2022-12-28] MEDS: FERROUS SULFATE 324 MG TABLET PO (08:32)
[2022-12-28] MEDS: allopurinoL 100 MG TABLET PO (08:32)
[2022-12-28] MEDS: MAGNESIUM OXIDE 400 MG TABLET PO (08:32)
[2022-12-28] MEDS: EMPAGLIFLOZIN 10 MG TABLET PO (08:32)
[2022-12-28] MEDS: EZETIMIBE 10 MG TABLET PO (08:32)
[2022-12-28] MEDS: PANTOPRAZOLE 40 MG TABLET PO (08:32)
[2022-12-28] MEDS: SODIUM CHLORIDE 1 GM TABLET PO ×2 (08:32→16:45)
[2022-12-28] MEDS: CALCIUM CARBONATE (OSCAL) 500 MG TABLET PO ×2 (08:32→16:47)
[2022-12-28] MEDS: CLOPIDOGREL BISULFATE 75 MG TABLET PO (08:33)
[2022-12-28] MEDS: FUROSEMIDE 20 MG TABLET PO (08:33)
[2022-12-28] MEDS: PARoxetine 10 MG TABLET PO (08:33)
[2022-12-28] MEDS: POTASSIUM CHLORIDE 20 MEQ PACKET (FOR LIQUID) 40 MEQ PO (08:40)
[2022-12-28] MEDS: cefTRIAXone 2 GM/NS 100 ML 2 GM/100 ML BAG IVPB (10:09)
[2022-12-28] MEDS: CLOBETASOL PROPIONATE 0.05% CREAM 15 GM 1 APPLIC TOPICAL (10:10)
[2022-12-28 11:36] LABS: Glucose Point of Care 208 mg/dl (65-105)
[2022-12-28] MEDS: INSULIN ASPART (*BKC) 100 UNITS/ML SUB-Q ×3 (11:52→21:01)
--- NOTE | 2022-12-28 14:07 | PM.PNCARD ---
Progress Note: A&P Assessment and Plan (1) Elevated troponin: Code(s): R77.8 - Other specified abnormalities of plasma proteins Status: Acute Assessment and Plan: In regards to troponin elevation, suspect demand ischemia from cellulitis. No ischemic changes on EKG. Patient denies chest pain. Continue aspirin and Plavix. (2) PAF (paroxysmal atrial fibrillation): Code(s): I48.0 - Paroxysmal atrial fibrillation Status: Acute Assessment and Plan: In regards to episodes of paroxysmal atrial tachycardia and paroxysmal atrial fibrillation, heart rate much better with metoprolol 25 mg q.6 hours. Will shift to b.i.d. dosing today. Not candidate for anticoagulation at this time due to extensive bruising and possible bleeding in the left thigh. Replenish potassium to maintain K+ around 4.0 (3) Cellulitis of left lower extremity: Code(s): L03.116 - Cellulitis of left lower limb Status: Acute Assessment and Plan: Continue antibiotics. Redness and swelling of the leg improved today. (4) PAD (peripheral artery disease): Code(s): I73.9 - Peripheral vascular disease, unspecified Status: Acute Assessment and Plan: Continue aspirin, Plavix. Patient received a stent to left SFA last week with Dr. Kim (5) Stage 3b chronic kidney disease: Code(s): N18.32 - Chronic kidney disease, stage 3b Status: Acute Assessment and Plan: Stable. Continue to monitor. Plan Cardiology will sign off. Please call with questions. Subjective Date/time seen: 12/28/22 14:07 Cardiology follow up for atrial fibrillation, atrial tachycardia Interval history: She is feeling well this morning, no complaints. Denies any palpitations, chest pain, shortness of breath. Review of Systems Constitutional: Constitutional: Denies chills, Denies fever(s) and Denies poor appetite Eyes: Eyes: Denies eye discharge, Denies loss of vision, Denies eye pain and Denies photophobia ENT: Denies dizziness, Denies epistaxis, Denies nasal congestion and Denies sore throat Cardiovascular: Cardiovascular: Denies chest pain, Denies syncope, Denies pedal edema, Denies leg edema, Denies palpitations, Denies dyspnea, Denies dyspnea on exertion and Denies orthopnea Respiratory: Respiratory: Denies cough, Denies dyspnea, Denies dyspnea on exertion and Denies wheezing Gastrointestinal: Gastrointestinal: Denies abdominal pain, Denies diarrhea, Denies nausea and Denies vomiting Genitourinary: Genitourinary: Denies hematuria, Denies genital lesions and Denies dysuria Musculoskeletal: Musculoskeletal: Denies arthralgias, Denies joint swelling and Denies numbness Integumentary/Breasts: Skin/Breast: Denies pruritus and Denies rash Neurologic: Denies dizziness, Denies syncope, Denies loss of vision and Denies numbness Psychiatric: Psychiatric: Denies anxiety and Denies depression Endocrine: Endocrine: Denies cold intolerance, Denies heat intolerance and Denies palpitations Hematologic/Lymphatic: Hematologic/Lymphatic: Denies easy bleeding and Denies easy bruising Allergic/Immunologic: Allergic/Immunologic: Denies urticaria and Denies wheezing Exam Const: General: cooperative, comfortable, no acute distress, alert, awake and well nourished Nutritional Appearance: well nourished Orientation/consciousness: patient oriented x3 HENMT: Head: normal to inspection, normocephalic and atraumatic Ears: hearing grossly normal bilaterally Face/Nose/Sinus: Normal external nose present, Normal nares present, no nasal discharge noted, normal facial exam and No erythema Face and sinus: normal facial exam and no erythema Mouth: No drooling and No restricted motion Throat: uvula midline Eyes: General: appearance normal, both eyes and all related structures Alignment and Position: position normal Conjunctivae: conjunctivae normal Sclera: sclerae normal Direct Ophthalmoscopy: No photophobia
--- NOTE | 2022-12-28 15:10 | PM.IMPN ---
Progress Note: A&P Assessment and Plan (1) Cellulitis of left lower extremity: Code(s): L03.116 - Cellulitis of left lower limb Status: Acute Assessment and Plan: Patient presents with fatigue, poor appetite and malaise. Symptoms began after placement of left lower extremity arterial stent. Patient has pink blanchable erythema left medial and lateral thigh that is warm and tender. Probably cellulitis. She had pain in this area. CRP at 21K. WBC 13K and now normal. No longer having fevers. Venous Dopplers were negative for DVT. Arterial Dopplers were negative. As per cellulitis protocol in a diabetic, patient started on cefepime, Flagyl and vancomycin with pharmacy to dose. BCx NGTD. MRSA nasal swab negative. Abx narrowed to Rocephin. (2) PAD (peripheral artery disease): Code(s): I73.9 - Peripheral vascular disease, unspecified Status: Acute Assessment and Plan: Patient underwent left lower extremity arterial stent placement on 12/22/[address] Kim (right femoral approach). She was admitted for cellulitis and found also to have ecchymosis to the right leg. Hgb has dropped from 11.4 to 8.9. Arterial doppler showing no pseudoaneurysm to the right femoral artery. Arterial Doppler also shows bilateral patent lower extremity arteries. CT A/P showing no hematoma. Hgb up and down but overall stable. Continue ASA and Plavix. Monitor HH closely. Son stated that we can begin PT/OT 4-5 days post-procedure so PT/OT ordered (3) Anemia: Code(s): D64.9 - Anemia, unspecified Status: Chronic Assessment and Plan: As above. Hgb was 11.4 on admission but dropped to 9 range. Drop in HH could be from IV fluids so these were stopped. We continued Fe. Hgb stable mostly in the 9-10 range. Follow (4) Elevated troponin: Code(s): R77.8 - Other specified abnormalities of plasma proteins Status: Acute Assessment and Plan: No complaints of chest pain. Troponins elevated at 0.4 on admission and are trending down. Troponins may be elevated related to the kidney disease. No EKG changes. Consider cardiac event related to the procedure 3 days ago and now seeing residual Trop deceleration. Echo showing EF 70% with diastolic dysfunction, mild , mild-mod MR. [place] to be demand ischaemia. Cardiology consulted and appreciate their input. (5) Diastolic congestive heart failure: Code(s): I50.30 - Unspecified diastolic (congestive) heart failure Status: Acute Assessment and Plan: Patient has a hx of dCHF. BNP >30K but CXR clear and was not clearly fluid overloaded clinically. Left pedal edema probably related to cellulitis. Echo as above. Continue metoprolol, Lasix and Jardiance. Mild edema noted. Lasix IV once yesterday. Follow for now. (6) Chronic kidney disease, stage 3: Code(s): N18.30 - Chronic kidney disease, stage 3 unspecified Status: Acute Assessment and Plan: Cr baseline 1.2-1.5. Her creatinine was 1.6 on admission so probably within her baseline. She was started on IV fluids. Potassium was okay. Mild metabolic acidosis noted today. IV fluids off now. She does have edema noted but lungs clear. Cr 1.6 and stable. Potassium low. Follow (7) Hyponatremia: Code(s): E87.1 - Hypo-osmolality and hyponatremia Status: Acute Assessment and Plan: Sodium is chronically low in the 130-134 range. Na 129 but dropped to 125. Suspect related to hyperglycemia and/or paxil/remeron and/or CHF. NaCl tablets added. Correcting glucose. Na down again to 127 today. Related to lasix dose? Follow (8) Diabetes mellitus with chronic kidney disease: Qualifiers: Chronic kidney disease stage: stage 3 (moderate) Chronic kidney disease stage 3 subtype: stage 3b (GFR 30-44) Diabetes mellitus group home insulin use: without group home use Diabetes mellitus type: type 2 Qualified Code(s): E11.22 - Type 2 diabetes mellitus with diabetic c
[2022-12-28 17:19] LABS: Glucose Point of Care 276 mg/dl (65-105)
--- NOTE | 2022-12-28 18:18 | PC.NURSE ---
This patient, Elizabeth Negron, was transferred to [ [id number]] on 12/28/22 at 1818. Personal belongings sent with patient. Report given to [Cielo ]. Appropriate documentation sent with patient.
--- NOTE | 2022-12-28 18:31 | PC.NURSE ---
Received patient from [facility] at 1820.
[2022-12-28] MEDS: INSULIN GLARGINE (*BKC) 100 UNITS/ML 10 UNITS SUB-Q (21:02)
[2022-12-28] MEDS: METOPROLOL TARTRATE 50 MG TAB PO (21:03)
[2022-12-28] MEDS: SIMVASTATIN 20 MG TABLET 40 MG PO (21:05)
[2022-12-28] MEDS: MIRTAZAPINE 15 MG TABLET PO (21:07)
[2022-12-28 21:11] LABS: Glucose Point of Care 262 mg/dl (65-105)
[2022-12-29] VITALS (9 sets, daily range): BP systolic 130–135; BP diastolic 59–61; PULSE 68–90; RESP 18; TEMP 36.1–36.5; O2SAT 100
[2022-12-29] MEDS: SALINE LOCK FLUSH 10 ML IV PUSH ×3 (06:05→20:17)
[2022-12-29 06:26] LABS: Hematocrit 32.6 % (37.0-47.0); Hemoglobin 10.1 g/dL (12.0-15.0); Mean Corpuscular Hemoglobin 28.5 pg (26-34); Mean Corpuscular Volume 91.8 fl (80-100); Mean Platelet Volume 10.8 fl (7.4-10.4); Platelet Count Result 199 k/mm3 (150-375); Red Blood Count 3.55 M/mm3 (4.2-5.4); Red Cell Distribution Width 15.5 % (11.5-14.5); White Blood Count 8.4 K/mm3 (4.5-10.0)
[2022-12-29 06:35] LABS: Anion Gap 7 mmol/L (8-16); Blood Urea Nitrogen 41 mg/dL (7-17); Calcium 8.1 mg/dL (8.4-10.2); Carbon Dioxide 24 mmol/L (22-30); Chloride 103 mmol/L (98-107); Estimated CRCL calculation 24 ml/min; Estimated Glomerular Filt Rate 33; Glucose 166 mg/dL (65-110); Potassium 3.9 mmol/L (3.4-5.0); Sodium 134 mmol/L (137-145)
[2022-12-29 07:34] LABS: Glucose Point of Care 156 mg/dl (65-105)
[2022-12-29] MEDS: SELENIUM SULFIDE 1% SHAMPOO 207 ML 1 APPLIC TOPICAL (08:20)
[2022-12-29] MEDS: FERROUS SULFATE 324 MG TABLET PO (08:21)
[2022-12-29] MEDS: MAGNESIUM OXIDE 400 MG TABLET PO (08:21)
[2022-12-29] MEDS: PANTOPRAZOLE 40 MG TABLET PO (08:21)
[2022-12-29] MEDS: FUROSEMIDE 20 MG TABLET PO (08:21)
[2022-12-29] MEDS: CLOPIDOGREL BISULFATE 75 MG TABLET PO (08:21)
[2022-12-29] MEDS: EZETIMIBE 10 MG TABLET PO (08:21)
[2022-12-29] MEDS: CLOBETASOL PROPIONATE 0.05% CREAM 15 GM 1 APPLIC TOPICAL (08:21)
[2022-12-29] MEDS: EMPAGLIFLOZIN 10 MG TABLET PO (08:21)
[2022-12-29] MEDS: allopurinoL 100 MG TABLET PO (08:21)
[2022-12-29] MEDS: METOPROLOL TARTRATE 50 MG TAB PO ×2 (08:21→20:16)
[2022-12-29] MEDS: PARoxetine 10 MG TABLET PO (08:21)
[2022-12-29] MEDS: FLUTICASONE PROPIONATE 0.05% NA SPR 16 GM BTL (*BKC) 1 SPRAY NASAL ×2 (08:21→16:53)
[2022-12-29] MEDS: CALCIUM CARBONATE (OSCAL) 500 MG TABLET PO ×2 (08:22→16:53)
[2022-12-29] MEDS: SODIUM CHLORIDE 1 GM TABLET PO ×2 (08:22→16:53)
[2022-12-29] MEDS: ASPIRIN 81 MG ENTERIC TABLET PO (08:22)
[2022-12-29 10:35] LABS: Glucose Point of Care 276 mg/dl (65-105)
--- NOTE | 2022-12-29 10:55 | PM.DS ---
DS: Summary Time Spent with Patient Time attestation: Total time spent providing and/or coordinating discharge services: DS: Data Data Completed and Pending Labs on day of discharge: Labs from last 24 hours 12/29/22 12/29/22 12/28/22 07:30 05:57 20:57 WBC 8.4 RBC 3.55 L Hgb 10.1 L Hct 32.6 L MCV 91.8 MCH 28.5 MCHC 31.0 L RDW 15.5 H Plt Count 199 MPV 10.8 H Sodium 134 L Potassium 3.9 Chloride 103 Carbon Dioxide 24 Anion Gap 7 L BUN 41 H Creatinine 1.50 H Estim Creat Clear Calc 24 Estimated GFR 33 L Glucose 166 H POC Capillary Glucose 156 H 262 H Calcium 8.1 L 12/28/22 12/28/22 12/26/22 16:37 11:27 12:02 WBC RBC Hgb Hct MCV MCH MCHC RDW Plt Count MPV Sodium Potassium Chloride Carbon Dioxide Anion Gap BUN Creatinine Estim Creat Clear Calc Estimated GFR Glucose POC Capillary Glucose 276 H 208 H 276 H Calcium Preliminary micro results at discharge 12/24/22 22:41 Blood Culture - Preliminary Blood 12/24/22 22:41 Blood Culture - Preliminary Blood Discharge Plan Discharge Attending physician on discharge: Keerthi Owens Consulting providers: Manasa Quinones Discharging Clinician: Keerthi Owens Patient Disposition: SNF Activity: as tolerated Diet: as tolerated Patient Instructions: Clopidogrel (By mouth), Cellulitis (GEN), Pain Management (DC), Peripheral Vascular Stent Placement (GEN) Stand Alone Forms: General Discharge Information Follow-up/Referrals: Manasa Quinones DO [Physician] - Molly Fagan MD [Primary Care Provider] - Discharge Medications: New metoprolol tartrate 50 mg Tablet 50 mg PO Q12HR 30 Days Qty: 60 0RF insulin aspart U-100 [Novolog U-100 Insulin aspart] 100 unit/mL Solution 2 - 5 unit subcut TIDWM Qty: 10 0RF Protocol: Insulin Corrective Low-Dose Condition: glucose < 70 mg/dl Dose/Route: Follow Hypoglycemia Order Condition: glucose 70-200 mg/dl Dose/Route: No additional insulin Condition: glucose 201-250 mg/dl Dose/Route: 2 units sub-Q Condition: glucose 251-300 mg/dl Dose/Route: 3 units sub-Q Condition: glucose 301-350 mg/dl Dose/Route: 4 units sub-Q Condition: glucose 351-400 mg/dl Dose/Route: 5 units sub-Q Condition: glucose > 400 mg/dl Dose/Route: Call Protocol Text: *No Correction Dose at Bedtime* sodium chloride 1,000 mg Tablet,Soluble 1,000 mg PO BID 30 Days Qty: 60 0RF insulin glargine [Lantus U-100 Insulin] 100 unit/mL Solution 10 unit subcut HS 30 Days Qty: 3 0RF Continued Januvia 100 mg tablet 100 mg PO DAILY Jardiance 10 mg tablet 10 mg PO DAILY allopurinol 100 mg tablet 100 mg PO DAILY Qty: 90 4RF ketoconazole 2 % shampoo 1 applic topical 3XW Qty: 120 3RF Rx Instructions: use Tuesday, Tuesday, Tuesday. trazodone 50 mg tablet 25 mg PO QHS PRN (Reason: insomnia) Qty: 45 3RF calcium carbonate 600 mg calcium (1,500 mg) tablet 600 mg PO BID omeprazole 20 mg capsule,delayed release(DR/EC) 20 mg PO DAILY ezetimibe 10 mg tablet 10 mg PO DAILY Qty: 90 4RF meclizine 12.5 mg tablet 12.5 mg PO Q12H PRN (Reason: dizziness) Qty: 180 0RF diphenhydramine HCl [Banophen] 25 mg capsule 25 mg PO Q8H PRN (Reason: Itching) Rx Instructions: TAKE 1 CAPSULE BY MOUTH EVERY 8 HOURS NEEDED FOR ITCHING fluticasone propionate 50 mcg/actuation spray,suspension 1 spray intranasal BID Rx Instructions: INSTILL 1 SPRAY IN EACH NOSTRIL TWICE DAILY clopidogrel 75 mg tablet 75 mg PO DAILY colchicine 0.6 mg tablet 0.6 mg PO DAILY clobetasol 0.05 % solution 1 applic TOPICAL DAILY Rx Instructions: Perineum/rectal area. magnesium oxide 400 mg (241.3 mg magnesium) Tablet 400 mg PO QAM 30 Days Qty: 30 0RF simva
[2022-12-29 11:33] LABS: Glucose Point of Care 194 mg/dl (65-105)
[2022-12-29] MEDS: cefTRIAXone 2 GM/NS 100 ML 2 GM/100 ML BAG IVPB (11:39)
[2022-12-29] MEDS: MECLIZINE HCL 12.5 MG TABLET PO (11:44)
--- NOTE | 2022-12-29 16:45 | PM.IMPN ---
Progress Note: A&P Assessment and Plan (1) Cellulitis of left lower extremity: Code(s): L03.116 - Cellulitis of left lower limb Status: Acute Assessment and Plan: Patient presents with fatigue, poor appetite and malaise. Symptoms began after placement of left lower extremity arterial stent. Patient has pink blanchable erythema left medial and lateral thigh that is warm and tender. Probably cellulitis. She had pain in this area. CRP at 21K. WBC 13K and now normal. No longer having fevers. Venous Dopplers were negative for DVT. Arterial Dopplers were negative. As per cellulitis protocol in a diabetic, patient started on cefepime, Flagyl and vancomycin with pharmacy to dose. BCx NGTD. MRSA nasal swab negative. Abx narrowed to Rocephin. (2) PAD (peripheral artery disease): Code(s): I73.9 - Peripheral vascular disease, unspecified Status: Acute Assessment and Plan: Patient underwent left lower extremity arterial stent placement on 12/22/[address] Kim (right femoral approach). She was admitted for cellulitis and found also to have ecchymosis to the right leg. Hgb has dropped from 11.4 to 8.9. Arterial doppler showing no pseudoaneurysm to the right femoral artery. Arterial Doppler also shows bilateral patent lower extremity arteries. CT A/P showing no hematoma. Hgb up and down but overall stable. Continue ASA and Plavix. Monitor HH closely. Son stated that we can begin PT/OT 4-5 days post-procedure so PT/OT ordered (3) Anemia: Code(s): D64.9 - Anemia, unspecified Status: Chronic Assessment and Plan: As above. Hgb was 11.4 on admission but dropped to 9 range. Drop in HH could be from IV fluids so these were stopped. We continued Fe. Hgb stable mostly in the 9-10 range. Follow (4) Elevated troponin: Code(s): R77.8 - Other specified abnormalities of plasma proteins Status: Acute Assessment and Plan: No complaints of chest pain. Troponins elevated at 0.4 on admission and are trending down. Troponins may be elevated related to the kidney disease. No EKG changes. Consider cardiac event related to the procedure 3 days ago and now seeing residual Trop deceleration. Echo showing EF 70% with diastolic dysfunction, mild , mild-mod MR. [place] to be demand ischaemia. Cardiology consulted and appreciate their input. (5) Diastolic congestive heart failure: Code(s): I50.30 - Unspecified diastolic (congestive) heart failure Status: Acute Assessment and Plan: Patient has a hx of dCHF. BNP >30K but CXR clear and was not clearly fluid overloaded clinically. Left pedal edema probably related to cellulitis. Echo as above. Continue metoprolol, Lasix and Jardiance. Mild edema noted. Lasix IV once yesterday. Follow for now. (6) Chronic kidney disease, stage 3: Code(s): N18.30 - Chronic kidney disease, stage 3 unspecified Status: Acute Assessment and Plan: Cr baseline 1.2-1.5. Her creatinine was 1.6 on admission so probably within her baseline. She was started on IV fluids. Potassium was okay. Mild metabolic acidosis noted today. IV fluids off now. She does have edema noted but lungs clear. Cr 1.6 and stable. Potassium low. Follow (7) Hyponatremia: Code(s): E87.1 - Hypo-osmolality and hyponatremia Status: Acute Assessment and Plan: Sodium is chronically low in the 130-134 range. Na 129 but dropped to 125. Suspect related to hyperglycemia and/or paxil/remeron and/or CHF. NaCl tablets added. Correcting glucose. 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
[2022-12-29 16:49] LABS: Glucose Point of Care 317 mg/dl (65-105)
[2022-12-29] MEDS: INSULIN ASPART (*BKC) 100 UNITS/ML SUB-Q ×2 (16:50→20:21)
[2022-12-29] MEDS: MIRTAZAPINE 15 MG TABLET PO (20:17)
[2022-12-29] MEDS: SIMVASTATIN 20 MG TABLET 40 MG PO (20:17)
[2022-12-29] MEDS: traZODone HCL 25 MG TABLET PO (20:18)
[2022-12-29] MEDS: INSULIN GLARGINE (*BKC) 100 UNITS/ML 10 UNITS SUB-Q (20:22)
[2022-12-29 20:25] LABS: Glucose Point of Care 290 mg/dl (65-105)
[2022-12-29] MEDS: ACETAMINOPHEN 500 MG TABLET PO (21:50)
[2022-12-30] VITALS: PULSE 78
[2022-12-30 04:00] VITALS: PULSE 67
[2022-12-30] MEDS: SALINE LOCK FLUSH 10 ML IV PUSH (05:50)
--- NOTE | 2022-12-30 05:50 | PC.NURSE ---
called lab assistance and informed midline doesn't draw blood.
[2022-12-30 06:42] LABS: Basophils Percent Auto 0.5 % (0.2-1.2); Eosinophils Absolute Auto 0.1 K/mm3 (0-0.3); Eosinophils Percent Auto 1.8 % (0-4.4); Hemoglobin 10.5 g/dL (12.0-15.0); Immature Granulocyte Absolute 0.13 K/mm3 (0.00-0.031); Immature Granulocyte Percent A 2.1 % (0-0.5); Lymphocytes Absolute Auto 0.73 K/mm3 (0.9-3.2); Lymphocytes Percent Auto 11.7 % (18.3-44.2); Mean Corpuscular HGB Conc 30.9 g/dl (32-36); Mean Corpuscular Volume 93.9 fl (80-100); Mean Platelet Volume 10.7 fl (7.4-10.4); Monocytes Absolute Auto 0.2 K/mm3 (0.1-0.6); Neutrophils Absolute Auto 5.1 K/mm3 (1.3-6.7); Neutrophils Percent Auto 80.9 % (45.5-73.1); Platelet Count Result 251 k/mm3 (150-375); Red Blood Count 3.62 M/mm3 (4.2-5.4); Red Cell Distribution Width 15.8 % (11.5-14.5); White Blood Count 6.2 K/mm3 (4.5-10.0)
[2022-12-30 06:52] LABS: Alanine Aminotransferase 20 U/L (6-35); Albumin Level 3.1 g/dL (3.5-5.1); Alkaline Phosphatase 135 U/L (38-126); Anion Gap 6 mmol/L (8-16); Aspartate Amino Transferase 33 U/L (14-36); Bilirubin,Total 0.4 mg/dL (0.2-1.3); Blood Urea Nitrogen 40 mg/dL (7-17); Calcium 8.2 mg/dL (8.4-10.2); Carbon Dioxide 29 mmol/L (22-30); Chloride 102 mmol/L (98-107); Estimated CRCL calculation 25 ml/min; Estimated Glomerular Filt Rate 36; Glucose 261 mg/dL (65-110); Potassium 3.8 mmol/L (3.4-5.0); Sodium 137 mmol/L (137-145)
[2022-12-30 07:28] VITALS: BP 159/74; PULSE 69; RESP 18; TEMP 36.2; O2SAT 99
[2022-12-30 08:00] VITALS: PULSE 56
[2022-12-30 08:43] VITALS: PULSE 75
[2022-12-30 08:43] LABS: Glucose Point of Care 248 mg/dl (65-105)
[2022-12-30] MEDS: FLUTICASONE PROPIONATE 0.05% NA SPR 16 GM BTL (*BKC) 1 SPRAY NASAL (08:43)
[2022-12-30] MEDS: CLOBETASOL PROPIONATE 0.05% CREAM 15 GM 1 APPLIC TOPICAL (08:43)
[2022-12-30] MEDS: CLOPIDOGREL BISULFATE 75 MG TABLET PO (08:43)
[2022-12-30] MEDS: FERROUS SULFATE 324 MG TABLET PO (08:43)
[2022-12-30] MEDS: FUROSEMIDE 20 MG TABLET PO (08:43)
[2022-12-30] MEDS: allopurinoL 100 MG TABLET PO (08:43)
[2022-12-30] MEDS: METOPROLOL TARTRATE 50 MG TAB PO (08:43)
[2022-12-30] MEDS: EMPAGLIFLOZIN 10 MG TABLET PO (08:43)
[2022-12-30] MEDS: PARoxetine 10 MG TABLET PO (08:43)
[2022-12-30] MEDS: CALCIUM CARBONATE (OSCAL) 500 MG TABLET PO (08:43)
[2022-12-30] MEDS: PANTOPRAZOLE 40 MG TABLET PO (08:43)
[2022-12-30] MEDS: EZETIMIBE 10 MG TABLET PO (08:44)
[2022-12-30] MEDS: ASPIRIN 81 MG ENTERIC TABLET PO (08:44)
[2022-12-30] MEDS: SODIUM CHLORIDE 1 GM TABLET PO (08:44)
[2022-12-30] MEDS: MAGNESIUM OXIDE 400 MG TABLET PO (08:44)
[2022-12-30] MEDS: INSULIN ASPART (*BKC) 100 UNITS/ML SUB-Q ×2 (08:45→11:53)
--- NOTE | 2022-12-30 10:38 | P.CDI_ITS ---
CDI Query Clarification Request Please clarify if there is a cause and effect relationship between cellulitis and diabetes Mellitus. * There is no relationship between cellulitis and diabetes mellitus. * There is a relationship between cellulitis and diabetes mellitus. * Unknown if there is a relationship between cellulitis and diabetes mellitus. <Lara Sharp RN - Last Filed: 12/30/22 10:42> Clarified Diagnosis Clarified Diagnosis: Unknown if there is a relationship between cellulitis and diabetes mellitus. <Keerthi Owens DO - Last Filed: 01/17/23 19:16>
--- NOTE | 2022-12-30 10:42 | P.CDI_ITS ---
CDI Query Clarification Request Documented history of CHF. CHF noted in the assessment and plan. Elevated BNP on 12/24/22 lab work. Patient receiving Lasix. Lasix listed as a home medication. Edema noted in the nursing documentation. Please specify type and acuity of heart failure if known. * Acute * Chronic * Acute on Chronic * Unknown * Systolic * Diastolic * Combined Systolic and Diastolic * Unknown <Lara Sharp RN - Last Filed: 12/30/22 10:46> Clarified Diagnosis Clarified Diagnosis: Chronic diastolic heart failure <Keerthi Owens DO - Last Filed: 01/17/23 19:16>
[2022-12-30] MEDS: cefTRIAXone 2 GM/NS 100 ML 2 GM/100 ML BAG IVPB (11:02)
[2022-12-30 11:26] LABS: Glucose Point of Care 281 mg/dl (65-105)
--- NOTE | 2022-12-30 11:41 | PM.DS ---
DS: Admitting Diagnosis Discharge Date 12/30/22 Admitting Diagnosis Chest congestion DS: Discharge Diagnosis Discharge Diagnosis (1) Cellulitis of left lower extremity: Code(s): L03.116 - Cellulitis of left lower limb Status: Acute Assessment and Plan: Patient presents with fatigue, poor appetite and malaise. Symptoms began after placement of left lower extremity arterial stent. Patient has pink blanchable erythema left medial and lateral thigh that is warm and tender. Probably cellulitis. She had pain in this area. CRP at 21K. WBC 13K and now normal. No longer having fevers. Venous Dopplers were negative for DVT. Arterial Dopplers were negative. As per cellulitis protocol in a diabetic, patient started on cefepime, Flagyl and vancomycin with pharmacy to dose. BCx NGTD. MRSA nasal swab negative. Abx narrowed to Rocephin. (2) PAD (peripheral artery disease): Code(s): I73.9 - Peripheral vascular disease, unspecified Status: Inactive Assessment and Plan: Patient underwent left lower extremity arterial stent placement on 12/22/[address] Kim (right femoral approach). She was admitted for cellulitis and found also to have ecchymosis to the right leg. Hgb has dropped from 11.4 to 8.9. Arterial doppler showing no pseudoaneurysm to the right femoral artery. Arterial Doppler also shows bilateral patent lower extremity arteries. CT A/P showing no hematoma. Hgb up and down but overall stable. Continue ASA and Plavix. Monitor HH closely. Son stated that we can begin PT/OT 4-5 days post-procedure so PT/OT ordered (3) Anemia: Code(s): D64.9 - Anemia, unspecified Status: Chronic Assessment and Plan: As above. Hgb was 11.4 on admission but dropped to 9 range. Drop in HH could be from IV fluids so these were stopped. We continued Fe. Hgb stable mostly in the 9-10 range. Follow (4) Elevated troponin: Code(s): R77.8 - Other specified abnormalities of plasma proteins Status: Acute Assessment and Plan: No complaints of chest pain. Troponins elevated at 0.4 on admission and are trending down. Troponins may be elevated related to the kidney disease. No EKG changes. Consider cardiac event related to the procedure 3 days ago and now seeing residual Trop deceleration. Echo showing EF 70% with diastolic dysfunction, mild , mild-mod MR. [place] to be demand ischaemia. Cardiology consulted and appreciate their input. (5) Diastolic congestive heart failure: Code(s): I50.30 - Unspecified diastolic (congestive) heart failure Status: Acute Assessment and Plan: Patient has a hx of dCHF. BNP >30K but CXR clear and was not clearly fluid overloaded clinically. Left pedal edema probably related to cellulitis. Echo as above. Continue metoprolol, Lasix and Jardiance. Mild edema noted. Lasix IV once yesterday. Follow for now. (6) Chronic kidney disease, stage 3: Code(s): N18.30 - Chronic kidney disease, stage 3 unspecified Status: Acute Assessment and Plan: Cr baseline 1.2-1.5. Her creatinine was 1.6 on admission so probably within her baseline. She was started on IV fluids. Potassium was okay. Mild metabolic acidosis noted today. IV fluids off now. She does have edema noted but lungs clear. Cr 1.6 and stable. Potassium low. Follow (7) Hyponatremia: Code(s): E87.1 - Hypo-osmolality and hyponatremia Status: Acute Assessment and Plan: Sodium is chronically low in the 130-134 range. Na 129 but dropped to 125. Suspect related to hyperglycemia and/or paxil/remeron and/or CHF. NaCl tablets added. Correcting glucose. Na improved to 134, recheck tomorrow (8) Diabetes mellitus with chronic kidney disease: Qualifiers: Diabetes mellitus type: type 2 Diabetes mellitus fci insulin use: without fci use Chronic kidney disease stage: stage 3 (moderate) Chronic kidney disease stage 3 subtype: stage
--- NOTE | 2022-12-30 11:53 | PCOTNOTE ---
Attempted to see Patient for OT treatment session. Patient verbalized she is leaving today and going to another place for more therapy.
[2022-12-30 12:00] VITALS: PULSE 68
[2022-12-30] MEDS: NEOMYCIN/POLYMYXIN/BACITRACIN OINTMENT PACKET 1 PACKET (12:20)
== END 2022-12-30 13:05 | DRG 920 ==
LOC: ANHED 11:17 → ANHIMU 16:54 → ANH3MEDSUR 12-28 18:13
PROVIDERS: Internal Medicine; Nurse Practitioner; Admitting Provider Hospitalist; Emergency Provider Physician Assistant; PCP Family Medicine; Visit Provider Student in an Organized Health Care Education/Training Program
DX: L76.82 Other postprocedural complications of skin and subcutaneous tissue (principal); E87.1 Hypo-osmolality and hyponatremia; L03.116 Cellulitis of left lower limb; I13.0 Hypertensive heart and chronic kidney disease with heart failure and stage 1 through stage 4 chronic kidney disease, or unspecified chronic kidney disease; I50.32 Chronic diastolic (congestive) heart failure; I24.8 Other forms of acute ischemic heart disease; N17.9 Acute kidney failure, unspecified; E11.628 Type 2 diabetes mellitus with other skin complications; N18.32 Chronic kidney disease, stage 3b; I48.0 Paroxysmal atrial fibrillation; I73.9 Peripheral vascular disease, unspecified; I35.0 Nonrheumatic aortic (valve) stenosis; I65.21 Occlusion and stenosis of right carotid artery; I27.20 Pulmonary hypertension, unspecified; D64.9 Anemia, unspecified; E11.22 Type 2 diabetes mellitus with diabetic chronic kidney disease; E11.42 Type 2 diabetes mellitus with diabetic polyneuropathy; E78.5 Hyperlipidemia, unspecified; K57.30 Diverticulosis of large intestine without perforation or abscess without bleeding; K21.9 Gastro-esophageal reflux disease without esophagitis; M17.0 Bilateral primary osteoarthritis of knee; F32.A Depression, unspecified; Z20.822 Contact with and (suspected) exposure to COVID-19; Z79.82 Long term (current) use of aspirin; Z79.02 Long term (current) use of antithrombotics/antiplatelets; Z89.422 Acquired absence of other left toe(s); Z87.19 Personal history of other diseases of the digestive system
CPT/HCPCS: 36415; 36569; 70450; 71046; 71275; 74176; 80048; 80053; 80069; 82550; 82570; 82948; 83036; 83605; 83735; 83880; 84295; 84300; 84443; 84484; 85014; 85018; 85025; 85027; 85610; 85730; 85999; 86140; 87040; 87081; 87636; 93005; 93306; 93925; 93970; 96361; 96365; 96366; 96367; 97110; 97162; 97165; 97530; 97535; 99285; A9270; C1751; G0378; J0690; J0692; J0696; J1815; J1940; J3370; J3475; J7030; Q9967

== ENCOUNTER 2023-01-08 00:56 | Observation (INO) | payer MEDICARE, SELFPAY ==
[2023-01-08] VITALS (34 sets, daily range): BP systolic 111–164; BP diastolic 52–86; PULSE 78–122; RESP 16–29; TEMP 36.2–37; O2SAT 93–100
--- NOTE | ~2023-01-08 | CT_ITS ---
EXAMINATION: CT abdomen pelvis w con DATE: 01/08/2023 02:21 INDICATION: Nausea and vomiting. Abdomen pain. TECHNIQUE: Computed tomography (CT) of the abdomen and pelvis was performed with 100 cc Omnipaque 350 intravenous contrast. The dose-length product was 460.82 mGy-cm. Automated exposure control and iter ative reconstruction technique were employed. COMPARISON: CT dated 12/25/2022 FINDINGS: There is dependent atelectasis. There is NG tube coiled in the large hiatal hernia above th e diaphragm. There are multiple calcified granulomas of the spleen. There are gallstones. The liver, pancreas, adrenal glands and left kidney are unremarkable. There is an exophytic right renal cyst. No nobstructive bowel gas pattern. There is an ileocolic anastomosis in the right mid abdomen. There is mild thickening of the gastric wall. There are multiple ventral hernias containing fat. Nonobstructiv e bowel pattern. There is fluid throughout the small bowel. No obstruction. Severe lumbar spondylosis . Chronic superior endplate compression deformity of T12. IMPRESSION: 1. Thickening of the gastric wall with fluid throughout the small bowel, suspicious for gastroenterit is. 2: Large hiatal hernia containing a coiled NG tube above the level of the diaphragm. 3: Cholelithiasis. 4: Multiple ventral hernias containing fat. Reviewed, dictated and finalized at location A. IMPRESSION: 1. Thickening of the gastric wall with fluid throughout the small bowel, suspic ious for gastroenteritis. 2: Large hiatal hernia containing a coiled NG tube above the level of the diaph ragm. 3: Cholelithiasis. 4: Multiple ventral hernias containing fat.
--- NOTE | ~2023-01-08 | XR_ITS ---
XR abdomen NG/feed tube insert INDICATION: Evaluate NG tube position. TECHNIQUE: Limited KUB perform for evaluating NG tube . COMPARISON: No prior studies for comparison. FINDINGS: NG tube is coiled within a hiatal hernia above the diaphragm. Visualized bowel gas pattern is unremarkable.There is a healed right humeral neck fracture. IMPRESSION: 1: NG tube coiled in a hiatal hernia above the diaphragm. Reviewed, dictated and finalized at location A.
[2023-01-08] MEDS: ONDANSETRON INJ 4 MG/2 ML VIAL IV PUSH (01:28)
[2023-01-08] MEDS: SODIUM CHLORIDE 0.9% IV 1,000 ML 999 ML IV CONT (01:29)
[2023-01-08 01:38] LABS: Basophils Absolute Auto 0.1 K/mm3 (0.0-0.1); Eosinophils Absolute Auto 0.1 K/mm3 (0-0.3); Eosinophils Percent Auto 0.9 % (0-4.4); Hematocrit 27.5 % (37.0-47.0); Hemoglobin 8.4 g/dL (12.0-15.0); Immature Granulocyte Absolute 0.06 K/mm3 (0.00-0.031); Immature Granulocyte Percent A 0.7 % (0-0.5); Lymphocytes Absolute Auto 1.55 K/mm3 (0.9-3.2); Lymphocytes Percent Auto 17.2 % (18.3-44.2); Mean Corpuscular HGB Conc 30.5 g/dl (32-36); Mean Corpuscular Hemoglobin 29.7 pg (26-34); Mean Corpuscular Volume 97.2 fl (80-100); Mean Platelet Volume 9.1 fl (7.4-10.4); Monocytes Absolute Auto 0.4 K/mm3 (0.1-0.6); Monocytes Percent Auto 4.7 % (2.6-8.5); Neutrophils Absolute Auto 6.8 K/mm3 (1.3-6.7); Neutrophils Percent Auto 75.5 % (45.5-73.1); Platelet Count Result 333 k/mm3 (150-375); Red Blood Count 2.83 M/mm3 (4.2-5.4); Red Cell Distribution Width 17.2 % (11.5-14.5)
[2023-01-08 01:43] LABS: Appearance Urine Clear (Clear); Bacteria Urine None Seen /hpf; Bilirubin Urine Negative (Negative); Blood Urine Negative (Negative); Color Urine Yellow (Yellow); Glucose Urine UA 2+ mg/dL (Negative); Ketones Urine Negative (Negative); Leukocyte Esterase Ur 1+ LEU/UL (Negative); Nitrate Urine Negative (Negative); Non Pathogenic Casts 0-2; Protein Urine Trace mg/dL (Negative); RBC Urine 0-2 /hpf (0-2); Specific Grav Ur 1.016 (1.001-1.035); Squamous Epithelial Cell Urine Occasional /hpf (Few); Urobilinogen Urine 0.2 mg/dL (<2.0); WBC Urine 21-50 /hpf; pH Urine 5.5 (5.0-9.0)
[2023-01-08 01:48] LABS: Alanine Aminotransferase 17 U/L (6-35); Albumin Level 3.5 g/dL (3.5-5.1); Alkaline Phosphatase 97 U/L (38-126); Anion Gap 2 mmol/L (8-16); Aspartate Amino Transferase 30 U/L (14-36); Bilirubin,Total 0.3 mg/dL (0.2-1.3); Blood Urea Nitrogen 50 mg/dL (7-17); Calcium 8.1 mg/dL (8.4-10.2); Carbon Dioxide 34 mmol/L (22-30); Chloride 100 mmol/L (98-107); Estimated CRCL calculation 29 ml/min; Estimated Glomerular Filt Rate 43; Glucose 230 mg/dL (65-110); Lipase 678 U/L (23-300); Potassium 4.6 mmol/L (3.4-5.0); Sodium 136 mmol/L (137-145)
[2023-01-08 01:53] LABS: Add Urine Microscopic? YES
[2023-01-08] MEDS: PANTOPRAZOLE SODIUM IV 40 MG VIAL IV PUSH ×3 (02:27→21:37)
--- NOTE | 2023-01-08 02:53 | PC.NURSE ---
unable to advance NG tube past hernia; patient refuses further attempts. EDP notified. EDP advises to remove NG tube.
--- NOTE | 2023-01-08 03:30 | ED.GENADULT ---
HPI - General Adult General Chief complaint: Nausea/Vomiting/Diarrhea Stated complaint: coffee ground emesis Time Seen by Provider: 01/08/23 01:00 History of Present Illness HPI narrative: Patient 87-year-old female who presents the emergency department with chief complaint of nausea and vomiting. Patient reports she ate some pizza and drinks of Dr. Ritter today that she felt like the pizza was bad and then she vomited per the nursing facility where she lives that they said the vomit looked like coffee grounds. The patient reports after she vomited she feels better but reports that she has had problems with anemia before in the past. The patient was most recently discharged from the hospital on the after she had generalized weakness and had a hemoglobin of 10.5 at that time Related Data Home Medications Medication Instructions Recorded Confirmed metoprolol tartrate 25 mg tablet 25 mg PO TID 12/12/20 12/24/22 simvastatin 40 mg tablet 40 mg PO HS 12/12/20 12/24/22 calcium carbonate 600 mg calcium 600 mg PO BID 04/15/22 12/24/22 (1,500 mg) tablet omeprazole 20 mg capsule,delayed 20 mg PO DAILY 04/15/22 12/24/22 release aspirin 81 mg tablet,delayed 81 mg PO DAILY 08/11/22 12/24/22 release ferrous sulfate 325 mg (65 mg 325 mg PO HS 08/11/22 12/24/22 iron) capsule,extended release empagliflozin 10 mg tablet 10 mg PO DAILY 11/15/22 12/24/22 (Jardiance) sitagliptin phosphate 100 mg 100 mg PO DAILY 11/15/22 12/24/22 tablet (Januvia) clobetasol 0.05 % scalp solution 1 applic topical DAILY 12/24/22 12/24/22 clopidogrel 75 mg tablet 75 mg PO DAILY 12/24/22 12/24/22 colchicine 0.6 mg tablet 0.6 mg PO DAILY 12/24/22 12/24/22 fluticasone propionate 50 1 spray intranasal BID 12/24/22 12/24/22 mcg/actuation nasal spray,suspension Allergies Allergy/AdvReac Type Severity Reaction Status Date / Time influenza A (H1N1) virus Allergy Unknown Swelling Verified 01/08/23 01:10 vaccine [id number] 2008 of Lip/Tongue/Throat Influenza Virus Vaccines Allergy Unknown Swelling Verified 01/08/23 01:10 of Lip/Tongue/Throat phenobarbital AdvReac Mild Hallucinati Verified 01/08/23 01:10 ng Review of Systems Review of Systems: A 10 system review of systems was completed on the patient and is negative except for what is stated in the HPI. Nursing and ancillary documentation was reviewed. [facility] Past Medical History Medical History (Updated 01/08/23 @ 06:23 by Antione Cortez MD) Amputation toe Anemia History of blood transfusions. Aortic valve stenosis [id number] aortic valve stenosis on echocardiogram in April 2021 with a valve area of 1.1 to 1.5 centimeter squared. Arthritis Chronic kidney disease, stage 3 Depression Diabetic peripheral neuropathy Diastolic congestive heart failure Echocardiogram on 12/13/2020 showed normal left ventricular size with moderate consent of left ventricular hypertrophy with overall good left ventricular systolic function with an EF measuring 62%. There was hypokinesis of the basal inferoseptal segment as well as grade 1 diastolic dysfunction with moderately enlarged left atrial chamber and atrial septal aneurysm. Diverticulitis Dysuria Fracture of proximal end of right humerus (07/24/19) Gastroesophageal reflux GI bleed Hearing loss, bilateral History of rectal polyps Hyperlipidemia Hypertension PAD (peripheral artery disease) PAF (paroxysmal atrial fibrillation) Primary osteoarthritis of both knees Severe pulmonary hypertension Noted on echocardiogram April 2021. PASP was 65 mmHg. Stenosis of right internal carotid artery 51% stenosis of the proximal right ICA on CTA in December 2021. Trigger finger of both hands Type 2 diabetes mellitus Hemoglobin A1c was 6.8% on 12/12/2020. Surgical History Surgical History (Updated 01/08/23 @ 04:43 by Ara Black DO) Fracture of right hip requiring operative repair History of viviane
--- NOTE | 2023-01-08 04:09 | ECG_ITS ---
Measurements Intervals [place] Rate: 107 P: 103 ND: 187 QRS: 104 QRSD: 116 T: 39 QT: 364 QTc: 486 Interpretive Statements SINUS TACHYCARDIA MARKED RIGHT AXIS DEVIATION [QRS AXIS > 100] RIGHT BUNDLE BRANCH BLOCK [120+ ms QRS DURATION, UPRIGHT V1, 40+ ms S IN I/aVL/V4/V5/V6] COMPARED TO ECG 12/26/2022 02:09:27 SINUS RHYTHM HAS BEEN RESTORED Electronically Signed On 01-08-2023 9:03:26 CDT by Dawn Hughes M.D.
--- NOTE | 2023-01-08 04:28 | PM.IMHP ---
H&P: HPI History of Present Illness Date/Time: 01/08/23 04:28 Chief Complaint: Coffee-ground emesis Narrative: 87-year-old female with past medical history of gout, peripheral artery disease on Plavix, iron deficiency anemia, prior GI bleed and hiatal hernia who presented to the ER from [facility] due to coffee-ground type emesis. Patient reported that she was eating pizza and Dr. Ritter provided by the [facility]. She reported that the pizza tasted off so she only took a few bites. She thought that this also the pizza was bad. She then had a large black emesis. The [facility] staff felt that the emesis appeared to be coffee-ground in nature in subsequently sent the patient in to the ER. She only had 1 episode of vomiting. An NG was placed in the ER but the NG was sitting in the patient's hiatal hernia. When they tried to avoid Juan the patient's contents the did come back with a small amount of dark gastric contents but not necessarily coffee-ground in appearance. The sample was not sent for gastric cold. However on labs patient's hemoglobin had dropped 2 g compared to values from 9 days prior. The patient states that her hemoglobin dropped due to her recent procedure. She does not seem to understand that she had her procedure where she had a left femoral stent placed on 12/26/2022 should not cause her to drop her hemoglobin. She let them land the drop in her hemoglobin on the removal of her small toe on her left foot which had occurred previously. Any current abdominal pain she denies any recurrence of her nausea or vomiting. At the time of my evaluation the patient was actively belching. She denies any chest pain or shortness of breath. She reports that she does think that she needs more Lasix as she has had increased lower extremity swelling since she was discharged to the acute rehab. She states that she is supposed to be discharged back to [facility] on the . She is ambulating with a rolling walker. She has a palpable bladder at the time my exam. She denies any dysuria but states that she does feel like she could void. She seems to have occasional episodes of incomplete bladder emptying but does not give me great details about if this is currently ongoing. She reports that she has a bowel movement daily and has not had any black stools or bloody stools. However Hemoccult performed in the ER was positive for occult blood. The patient reports that she keeps a close track on her bowel movements since she had what sounds like prior bowel obstructions. According to prior H&P the patient had bowel resection due to GI bleeds not due to obstructions. She denies any chest pain or shortness breast. She denies dyspnea on exertion but has not been exerting herself much since her recent vascular intervention she has noticed increased lower extremity swelling as mentioned above but denies any orthopnea or paroxysmal nocturnal dyspnea. The patient is lying flat in the ER bed and is not demonstrating any distress. She is noted to have L small amount of dried blood to her hospital gown. It is unclear whether this is from her nose from NG insertion or from her gastric contents. The patient was evaluated in the ER. Patient's home med rec is not available for my review at the time of evaluation in the computer. [facility] paperwork did indicate the patient on Plavix and 81 mg aspirin. Does not appear that she is on any novel anticoagulants Review of Systems Review of Systems: 12 systems were reviewed with pertinent positives and negatives per HPI. Except as documented in the HPI, all other systems were reviewed and are negative. The patient does have chronic hearing loss and also has symptoms of peripheral neuropathy most notably in the lower extremities. She does have some scabs to the 2nd and 3rd toe on the left foot and to the 3rd toe on the right foot. She has no active foot wounds that her open or d
[2023-01-08] MEDS: FUROSEMIDE INJ 40 MG/4 ML VIAL 20 MG IV PUSH (06:15)
[2023-01-08 07:06] LABS: Hematocrit 24.8 % (37.0-47.0); Hemoglobin 7.6 g/dL (12.0-15.0)
--- NOTE | 2023-01-08 07:59 | PC.NURSE ---
Pt's son state pt had a hx of diverticulitis and had surgery on Sep 2016 to resect part of large colon.
--- NOTE | 2023-01-08 09:01 | ADMGEN ---
This patient, Elizabeth Negron, was admitted to Medical Room 253-01. Patient/family oriented to hospital policies and general routines including ID bracelet, bed and alarms, visiting hours, pain management, procedures, bathroom and other care routines, personal items, smoking policy, room service/diet, and visiting hours. Information on how to activate the Rapid Response Team has been discussed. Patient/Family are encouraged to report perceived risks to care and to ask questions if they do not understand what they are told or what they should do.
[2023-01-08 12:59] LABS: Hematocrit 23.5 % (37.0-47.0); Hemoglobin 7.2 g/dL (12.0-15.0); Immature Reticulocyte Fraction 29.5 % (3.0-15.9); Reticulocyte Hemoglobin Conten 32.4 pg (28.2-35.7); Reticulocyte Percent 6.48 % (0.7-4.3); Reticulocytes Absolute 0.16 M/mm3 (0.02-0.1)
[2023-01-08 13:10] LABS: Iron 39 ug/dL (37-170)
[2023-01-08 13:19] LABS: Percent Iron Saturation 12 % (20-50)
[2023-01-08 14:13] LABS: Glucose Point of Care 162 mg/dl (65-105)
[2023-01-08 14:17] LABS: Folic Acid 15.4 ng/mL (2.76->20)
--- NOTE | 2023-01-08 14:56 | PM.IMPN ---
Progress Note: A&P Assessment and Plan (1) Acute on chronic anemia: Code(s): D64.9 - Anemia, unspecified Status: Acute Assessment and Plan: Chronic blood loss anemia by history On chronic iron replacement therapy with iron panel suggesting partially treated iron deficiency, which likely explains the mild elevation of the reticulocyte count 01/08/2023 IV iron sucrose ordered, stop colchicine due to possible bone marrow suppression (2) Nausea and vomiting: Qualifiers: Vomiting type: unspecified Qualified Code(s): R11.2 - Nausea with vomiting, unspecified Code(s): R11.2 - Nausea with vomiting, unspecified Status: Acute Assessment and Plan: Resolved Whether this was due to rancid tomato sauce or upper GI bleed is unclear (3) GI bleed: Qualifiers: GI bleed type/associated pathology: unspecified gastrointestinal hemorrhage type Qualified Code(s): K92.2 - Gastrointestinal hemorrhage, unspecified Code(s): K92.2 - Gastrointestinal hemorrhage, unspecified Status: Acute Assessment and Plan: History of chronic gastrointestinal blood loss with associated iron deficiency anemia requiring transfusions in the past Unclear whether current episode was hematemesis (4) Stage 3b chronic kidney disease: Code(s): N18.32 - Chronic kidney disease, stage 3b Status: Acute Assessment and Plan: Creatinine at admission 1.4 on 01/07/2023 01/08/2023 1.2 (5) Acute renal insufficiency: Code(s): N28.9 - Disorder of kidney and ureter, unspecified Status: Acute Assessment and Plan: 01/08/2023 creatinine at baseline at 1.2 (6) Aortic valve stenosis: Code(s): I35.0 - Nonrheumatic aortic (valve) stenosis Status: Acute Assessment and Plan: Currently asymptomatic (7) Diabetes mellitus: Code(s): E11.9 - Type 2 diabetes mellitus without complications Status: Acute Assessment and Plan: Hold glipizide while diet is restricted (8) Hypertension: Code(s): I10 - Essential (primary) hypertension Status: Acute Assessment and Plan: Controlled on current regimen 01/08/23 blood pressures reviewed Subjective Date/time seen: 01/08/23 14:56 Interval history: Follow-up for nausea vomiting with dark emesis and worsening anemia, admitted 01/07/2023. No further nausea vomiting. Think she ate pizza with sour tomato sauce. However she is not aware of anyone else at [facility] he became ill after eating the pizza. History of chronic anemia. Last transfusion was over 2 years ago. She thinks it might have been it [facility]. She has a history of chronic GI blood loss. Had a surgery to remove about 6 in of her bowel several years ago at [facility]. She states it was ?ulcerated ?. However she continued to have issues with anemia after the surgery. She denied any chest pain or shortness of breath or dizziness. Denied diarrhea. Denied dark stools or blood in stool. Exam Narrative: HEENT: PERRL, sclerae nonicteric, pharyngeal mucosa pink and intact NECK: No JVD CHEST: Clear to auscultation. Normal effort. HEART: NL S1/S2, regular, soft [place] RUSB ABDOMEN: BS+, soft, nontender, no mass, no bruits EXTREMITIES: No cyanosis, edema, or clubbing NEUROLOGIC: CN intact and symmetric to inspection. MUSCULOSKELETAL: Tone and strength symmetric. PSYCH: Alert. Oriented to person, place, and time. Objective Data Vital Signs Vital Signs: Vital Signs - 24 hr 01/08/23 01:03 01/08/23 01:05 01/08/23 01:15 Temperature 97.1 F L Pulse Rate 100 99 100 Respiratory Rate 18 21 H 23 H Blood Pressure 129/71 Pulse Oximetry 100 100 100 Oxygen Delivery Room Air 01/08/23 01:16 01/08/23 01:30 01/08/23 01:31 Temperature Pulse Rate 102 H 86 110 H Respiratory Rate 19 21 H 23 H Blood Pressure 117/62 116/52 L Pulse Oximetry 100 Oxygen Delivery 01/08/23
[2023-01-08] MEDS: MIRTAZAPINE 15 MG TABLET PO (15:35)
[2023-01-08] MEDS: EZETIMIBE 10 MG TABLET PO (15:35)
[2023-01-08] MEDS: EMPAGLIFLOZIN 25 MG TABLET PO (15:36)
[2023-01-08] MEDS: allopurinoL 100 MG TABLET PO (15:36)
[2023-01-08] MEDS: PARoxetine 10 MG TABLET PO (15:36)
[2023-01-08] MEDS: SODIUM CHLORIDE 1 GM TABLET PO (15:36)
[2023-01-08] MEDS: MAGNESIUM OXIDE 400 MG TABLET PO (15:36)
[2023-01-08] MEDS: METOPROLOL TARTRATE 50 MG TAB PO (15:58)
[2023-01-08 16:09] LABS: Hematocrit 23.9 % (37.0-47.0); Hemoglobin 7.3 g/dL (12.0-15.0)
[2023-01-08 16:30] LABS: Hemoglobin A1C 9.8 % (<5.7)
[2023-01-08] MEDS: CALCIUM CARBONATE (OSCAL) 500 MG TABLET PO (16:57)
[2023-01-08 17:01] LABS: Glucose Point of Care 152 mg/dl (65-105)
--- NOTE | 2023-01-08 17:42 | WPDGICN ---
Assessment and Plan Assessment and plan (1) GI bleed: Qualifiers: GI bleed type/associated pathology: unspecified gastrointestinal hemorrhage type Qualified Code(s): K92.2 - Gastrointestinal hemorrhage, unspecified Code(s): K92.2 - Gastrointestinal hemorrhage, unspecified Status: Acute Assessment and Plan: here with coffee ground emesis and drop in h/h iv protonix monitor for signs of bleeding plan egd on tuesday hold asa and plavix for now (2) Acute on chronic anemia: Code(s): D64.9 - Anemia, unspecified Status: Acute Assessment and Plan: continue to monitor if hgb<7 may need transfusion (3) Coffee ground emesis: Code(s): K92.0 - Hematemesis Status: Acute Assessment and Plan: monitor (4) Type 2 diabetes mellitus with hyperglycemia, with long-term current use of insulin: Code(s): E11.65 - Type 2 diabetes mellitus with hyperglycemia; 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 Status: Acute (5) Atherosclerotic PVD with ulceration: Qualifiers: Peripheral atherosclerosis location: lower extremity Peripheral atherosclerosis artery type: [place] artery Laterality: bilateral Lower extremity ulceration location: other part of lower leg Qualified Code(s): I70.238 - Atherosclerosis of [place] arteries of right leg with ulceration of other part of lower leg; I70.248 - Atherosclerosis of [place] arteries of left leg with ulceration of other part of lower leg Code(s): I70.209 - Unspecified atherosclerosis of [place] arteries of extremities, unspecified extremity; L98.499 - Non-pressure chronic ulcer of skin of other sites with unspecified severity Status: Acute Assessment and Plan: recent stent placement in leg (6) Blood thinned due to long-term anticoagulant use: Code(s): Z79.01 - 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 She was eating pizza and Dr. Ritter provided by the residential and thought that tomato sauce was bad then developed headache and had one large black emesis, appeared to be coffee-ground in nature. An NG was placed in the ER temporarily but removed because was not in right position. Hemoccult performed in the ER was positive for occult blood.?Hgb 7.3 from 10 at baseline. No more vomiting and tolerating liquid diet. Review of Systems Constitutional: Constitutional: Denies weakness Eyes: Eyes: Denies photophobia ENT: Reports Normal hearing present Cardiovascular: Cardiovascular: Denies chest pain Respiratory: Respiratory: Denies chest congestion Gastrointestinal: Gastrointestinal: Reports nausea and Reports vomiting Genitourinary: Genitourinary: Denies urinary urgency Musculoskeletal: Musculoskeletal: Denies arthralgias Integumentary/Breasts: Skin/Breast: Denies rash Neurologic: Denies Abnormal speech present Psychiatric: Psychiatric: Denies behavioral changes [facility] Past Medical History Medical History (Updated 01/08/23 @ 17:47 by Emiliano Shipman MD) Amputation toe Anemia History of blood transfusions. Aortic valve stenosis Akel-ex-yanrqzwd aortic valve stenosis on echocardiogram in April 2021 with a valve area of 1.1 to 1.5 centimeter squared. Arthritis Blood thinned due to long-term anticoagulant use Chronic kidney disease, stage 3 Coffee ground emesis Depression Diabetic peripheral neuropathy Diastolic congestive heart failure Echocardiogram on 12/13/2020 showed normal lef
[2023-01-08 19:12] LABS: Hematocrit 21.7 % (37.0-47.0)
[2023-01-08 19:18] LABS: Hemoglobin 6.5 g/dL (12.0-15.0)
[2023-01-08 21:20] LABS: Glucose Point of Care 178 mg/dl (65-105)
[2023-01-08] MEDS: traZODone HCL 25 MG TABLET PO (21:35)
[2023-01-08] MEDS: FLUTICASONE PROPIONATE 0.05% NA SPR 16 GM BTL (*BKC) 1 SPRAY NASAL (21:36)
[2023-01-08] MEDS: FERROUS SULFATE 324 MG TABLET PO (21:36)
[2023-01-08] MEDS: INSULIN GLARGINE (*BKC) 100 UNITS/ML 15 UNITS SUB-Q (21:36)
[2023-01-08] MEDS: SIMVASTATIN 20 MG TABLET 40 MG PO (21:37)
[2023-01-09] VITALS (13 sets, daily range): BP systolic 122–156; BP diastolic 50–71; PULSE 78–97; RESP 16–20; TEMP 36.5–37.2; O2SAT 95–100
[2023-01-09 01:24] LABS: Hematocrit 27.6 % (37.0-47.0); Hemoglobin 8.6 g/dL (12.0-15.0)
[2023-01-09 05:35] LABS: Hematocrit 28.8 % (37.0-47.0); Hemoglobin 8.8 g/dL (12.0-15.0); Mean Corpuscular HGB Conc 30.6 g/dl (32-36); Mean Corpuscular Hemoglobin 29.1 pg (26-34); Mean Corpuscular Volume 95.4 fl (80-100); Mean Platelet Volume 8.9 fl (7.4-10.4); Platelet Count Result 256 k/mm3 (150-375); Red Blood Count 3.02 M/mm3 (4.2-5.4); Red Cell Distribution Width 17.9 % (11.5-14.5); White Blood Count 5.2 K/mm3 (4.5-10.0)
[2023-01-09 05:48] LABS: Anion Gap 0 mmol/L (8-16); Blood Urea Nitrogen 31 mg/dL (7-17); Calcium 8.1 mg/dL (8.4-10.2); Carbon Dioxide 34 mmol/L (22-30); Chloride 105 mmol/L (98-107); Estimated CRCL calculation 27 ml/min; Estimated Glomerular Filt Rate 39; Glucose 107 mg/dL (65-110); Magnesium 1.9 mg/dL (1.6-2.3); Phosphorus 4.1 mg/dL (2.5-4.5); Potassium 4.3 mmol/L (3.4-5.0); Sodium 139 mmol/L (137-145)
[2023-01-09 06:17] LABS: Glucose Point of Care 99 mg/dl (65-105)
[2023-01-09 08:46] LABS: Glucose Point of Care 107 mg/dl (65-105)
[2023-01-09] MEDS: MAGNESIUM OXIDE 400 MG TABLET PO (08:49)
[2023-01-09] MEDS: PANTOPRAZOLE SODIUM IV 40 MG VIAL IV PUSH ×2 (08:49→22:28)
[2023-01-09] MEDS: PARoxetine 10 MG TABLET PO (08:49)
[2023-01-09] MEDS: allopurinoL 100 MG TABLET PO (08:49)
[2023-01-09] MEDS: CALCIUM CARBONATE (OSCAL) 500 MG TABLET PO ×2 (08:49→17:29)
[2023-01-09] MEDS: METOPROLOL TARTRATE 50 MG TAB PO ×2 (08:49→22:28)
[2023-01-09] MEDS: SODIUM CHLORIDE 1 GM TABLET PO (08:49)
[2023-01-09] MEDS: EZETIMIBE 10 MG TABLET PO (08:49)
[2023-01-09] MEDS: EMPAGLIFLOZIN 25 MG TABLET PO (08:49)
[2023-01-09] MEDS: MIRTAZAPINE 15 MG TABLET PO (08:49)
[2023-01-09] MEDS: ACETAMINOPHEN 500 MG TABLET PO ×2 (08:50→22:38)
[2023-01-09] MEDS: FLUTICASONE PROPIONATE 0.05% NA SPR 16 GM BTL (*BKC) 1 SPRAY NASAL ×2 (08:51→22:28)
[2023-01-09 12:22] LABS: Glucose Point of Care 166 mg/dl (65-105)
--- NOTE | 2023-01-09 12:51 | PM.IMPN ---
Progress Note: A&P Assessment and Plan (1) GI bleed: Qualifiers: GI bleed type/associated pathology: unspecified gastrointestinal hemorrhage type Qualified Code(s): K92.2 - Gastrointestinal hemorrhage, unspecified Code(s): K92.2 - Gastrointestinal hemorrhage, unspecified Status: Acute Assessment and Plan: 01/07 Hgb 8.4 01/08 Hbg 7.2 --> 6.5 --> 1 U PRBC 01/09 8.8 Continue pantoprazole EGD planned for 01/10 (2) Acute on chronic anemia: Code(s): D64.9 - Anemia, unspecified Status: Acute Assessment and Plan: Likely due to acute on chronic GI blood loss (3) Nausea and vomiting: Qualifiers: Vomiting type: unspecified Qualified Code(s): R11.2 - Nausea with vomiting, unspecified Code(s): R11.2 - Nausea with vomiting, unspecified Status: Acute Assessment and Plan: Resolved (4) CHF (congestive heart failure): Qualifiers: Heart failure chronicity: acute on chronic Heart failure type: right-sided Qualified Code(s): I50.813 - Acute on chronic right heart failure Code(s): I50.9 - Heart failure, unspecified Status: Acute Assessment and Plan: Clinically stable (5) Type 2 diabetes mellitus with hyperglycemia, with long-term current use of insulin: Code(s): E11.65 - Type 2 diabetes mellitus with hyperglycemia; Z79.4 - longterm (current) use of insulin Status: Acute Assessment and Plan: 01/09 FBS 107 (6) Stage 3b chronic kidney disease: Code(s): N18.32 - Chronic kidney disease, stage 3b Status: Acute Assessment and Plan: 01/09 Creatinine 1.3 is at baseline Subjective Date/time seen: 01/09/23 12:51 Interval history: Follow-up for nausea vomiting with dark emesis and worsening anemia, admitted 01/07/2023. No further nausea vomiting. Had a formed dark stool this AM. Denied chest pain or sob. No urinary changes. No other bleeding noted. History of chronic anemia. Last transfusion was over 2 years ago. She thinks it might have been it [facility]. She has a history of chronic GI blood loss. Had a surgery to remove about 6 in of her bowel several years ago at [facility]. She states it was ?ulcerated ?. However she continued to have issues with anemia after the surgery. Review of Systems Review of Systems: All systems reviewed & are unremarkable except as noted in HPI and below Exam Narrative: HEENT: PERRL, sclerae nonicteric, pharyngeal mucosa pink and intact NECK: No JVD CHEST: Clear to auscultation. Normal effort. HEART: NL S1/S2, regular, soft [place] RUSB ABDOMEN: BS+, soft, nontender, no mass, no bruits EXTREMITIES: No cyanosis, edema, or clubbing NEUROLOGIC: CN intact and symmetric to inspection. MUSCULOSKELETAL: Tone and strength symmetric. PSYCH: Alert. Oriented to person, place, and time. Objective Data Vital Signs Vital Signs: Vital Signs - 24 hr 01/08/23 14:00 01/08/23 15:58 01/08/23 16:01 Temperature 97.8 F Pulse Rate 93 102 H 122 H Respiratory Rate 16 Blood Pressure 164/85 H Pulse Oximetry 97 Oxygen Delivery 01/08/23 20:02 01/08/23 22:18 01/08/23 22:34 Temperature 98.6 F 97.9 F 98.2 F Pulse Rate 85 78 78 Respiratory Rate 16 18 16 Blood Pressure 123/62 111/55 L 114/53 L Pulse Oximetry 93 98 96 Oxygen Delivery 01/08/23 20:00 01/08/23 20:00 01/09/23 00:00 Temperature Pulse Rate 85 85 Respiratory Rate Blood Pressure Pulse Oximetry Oxygen Delivery Room Air 01/08/23 23:34 01/09/23 00:34 01/09/23 03:53 Temperature 97.8 F 97.7 F 99 F Pulse Rate 79 78 86 Respiratory Rate 16 20 20 Blood Pressure 136/54 L 122/71 156/68 H Pulse Oximetry 96 97 97 Oxygen Delivery 01/09/23 04:00 01/09/23 08:48 01/09/23 08:49 Temperature Pulse Rate 97 95 90 Respiratory Rate 18 Blood Pressure 144/52 H Pulse Oximetry 95 Oxygen Delivery 01/09/23 08:00 01/09/23 08:5
[2023-01-09 13:16] LABS: IFOB Positive Control Positive; Immunochemical Fecal Occult Bl Positive (N)
[2023-01-09 17:24] LABS: Glucose Point of Care 157 mg/dl (65-105)
--- NOTE | 2023-01-09 17:41 | PC.NURSE ---
Faxed paperwork over to get medical records of bowel resection surgery from [facility]
--- NOTE | 2023-01-09 17:55 | WPDGIPROGNO ---
Progress Note: A&P Assessment and Plan (1) Coffee ground emesis: Code(s): K92.0 - Hematemesis Status: Acute Assessment and Plan: iv protonix blood thinner on hold egd tomorrow monitor for more signs of bleeding (2) Nausea and vomiting: Qualifiers: Vomiting type: unspecified Qualified Code(s): R11.2 - Nausea with vomiting, unspecified Code(s): R11.2 - Nausea with vomiting, unspecified Status: Acute Assessment and Plan: improved (3) GI bleed: Qualifiers: GI bleed type/associated pathology: unspecified gastrointestinal hemorrhage type Qualified Code(s): K92.2 - Gastrointestinal hemorrhage, unspecified Code(s): K92.2 - Gastrointestinal hemorrhage, unspecified Status: Acute Assessment and Plan: iv protonix egd in am (4) Blood thinned due to long-term anticoagulant use: Code(s): Z79.01 - longterm (current) use of anticoagulants Status: Acute (5) Atherosclerotic PVD with ulceration: Qualifiers: Peripheral atherosclerosis location: lower extremity Peripheral atherosclerosis artery type: [place] artery Laterality: bilateral Lower extremity ulceration location: other part of lower leg Qualified Code(s): I70.238 - Atherosclerosis of [place] arteries of right leg with ulceration of other part of lower leg; I70.248 - Atherosclerosis of [place] arteries of left leg with ulceration of other part of lower leg Code(s): I70.209 - Unspecified atherosclerosis of [place] arteries of extremities, unspecified extremity; L98.499 - Non-pressure chronic ulcer of skin of other sites with unspecified severity Status: Acute (6) Acute on chronic anemia: Code(s): D64.9 - Anemia, unspecified Status: Acute Assessment and Plan: better after transfusion Subjective Date/time seen: 01/09/23 17:55 Interval history: hgb better after blood transfusion, no more emesis Review of Systems Review of Systems: All systems reviewed & are unremarkable except as noted in HPI and below Exam Narrative: GENERAL: Well-appearing, well-nourished, and in no acute distress. HEAD: Normocephalic, atraumatic. EYES: PERRLA and EOMI. ENT: Nares clear, no rhinorrhea or epistaxis. Mucous membranes moist. NECK: Supple. CHEST: Clear to auscultation. No respiratory distress. HEART: Regular rate and rhythm. No murmur heard. ABDOMEN: Soft, nontender, nondistended, normal active bowel sounds. : Stool is guaiac positive EXTREMITIES: Normal range of motion. No edema. SKIN: Warm, dry, no rash. NEURO: No focal deficits. Alert and oriented x3. PSYCH: Normal mood and affect. Objective Data Vital Signs Vital Signs: Vital Signs - 24 hr 01/08/23 20:02 01/08/23 22:18 01/08/23 22:34 Temperature 98.6 F 97.9 F 98.2 F Pulse Rate 85 78 78 Respiratory Rate 16 18 16 Blood Pressure 123/62 111/55 L 114/53 L Pulse Oximetry 93 98 96 Oxygen Delivery 01/08/23 20:00 01/08/23 20:00 01/09/23 00:00 Temperature Pulse Rate 85 85 Respiratory Rate Blood Pressure Pulse Oximetry Oxygen Delivery Room Air 01/08/23 23:34 01/09/23 00:34 01/09/23 03:53 Temperature 97.8 F 97.7 F 99 F Pulse Rate 79 78 86 Respiratory Rate 16 20 20 Blood Pressure 136/54 L 122/71 156/68 H Pulse Oximetry 96 97 97 Oxygen Delivery 01/09/23 04:00 01/09/23 08:48 01/09/23 08:49 Temperature Pulse Rate 97 95 90 Respiratory Rate 18 Blood Pressure 144/52 H Pulse Oximetry 95 Oxygen Delivery 01/09/23 08:00 01/09/23 08:50 01/09/23 12:00 Temperature Pulse Rate 89 85 Respiratory Rate Blood Pressure Pulse Oximetry Oxygen Delivery Room Air 01/09/23 14:00 01/09/23 14:13 01/09/23 16:00 Temperature 97.9 F Pulse Rate 85 78 Respiratory Rate 19 Blood Pressure 124/50 L Pulse Oximetry 100 Oxygen Delivery Room Air Intake/Output Intake/Output: Intake & Output 01/06/23 01/07/23 01/08/23
[2023-01-09 20:38] LABS: Glucose Point of Care 208 mg/dl (65-105)
[2023-01-09] MEDS: traZODone HCL 25 MG TABLET PO (22:27)
[2023-01-09] MEDS: INSULIN GLARGINE (*BKC) 100 UNITS/ML 10 UNITS SUB-Q (22:27)
[2023-01-09] MEDS: FERROUS SULFATE 324 MG TABLET PO (22:28)
[2023-01-09] MEDS: SIMVASTATIN 20 MG TABLET 40 MG PO (22:29)
[2023-01-10] VITALS (16 sets, daily range): BP systolic 101–164; BP diastolic 50–70; PULSE 63–85; RESP 14–20; TEMP 36.2–37.1; O2SAT 94–100
[2023-01-10 07:44] LABS: Hematocrit 28.8 % (37.0-47.0); Hemoglobin 8.9 g/dL (12.0-15.0)
[2023-01-10 08:00] LABS: Anion Gap 0 mmol/L (8-16); Blood Urea Nitrogen 23 mg/dL (7-17); Calcium 8.5 mg/dL (8.4-10.2); Carbon Dioxide 34 mmol/L (22-30); Chloride 104 mmol/L (98-107); Estimated CRCL calculation 29 ml/min; Estimated Glomerular Filt Rate 43; Glucose 130 mg/dL (65-110); Potassium 5.2 mmol/L (3.4-5.0); Sodium 138 mmol/L (137-145)
[2023-01-10 08:20] LABS: Glucose Point of Care 134 mg/dl (65-105)
[2023-01-10] MEDS: METOPROLOL TARTRATE 50 MG TAB PO ×2 (09:50→20:14)
[2023-01-10] MEDS: ACETAMINOPHEN 500 MG TABLET PO (09:56)
[2023-01-10] MEDS: PANTOPRAZOLE SODIUM IV 40 MG VIAL IV PUSH (09:57)
[2023-01-10 12:08] LABS: Glucose Point of Care 136 mg/dl (65-105)
[2023-01-10] MEDS: LACTATED RINGERS 1,000 ML 150 ML IV CONT (13:44)
[2023-01-10 13:46] LABS: Glucose Point of Care 115 mg/dl (65-105)
--- NOTE | 2023-01-10 13:54 | WPDANESEPPF ---
Anes - Initial Pre Proc Eval Procedure: Operation Date: 01/10/23 15:45 Proposed Procedures p Esophagogastroduodenoscopy - Emiliano Shipman MD Date/Time: 01/10/23 13:54 Surgeon: Terrie Carolina PA-C Pre Op Diagnosis: GI Bleed,Nausea & Vomiting, CHF Patient Data Age: 87 Gender: F Height: 1.7 m Weight: 69.5 kg Last Vital Signs Temp 36.2 C L 01/10/23 13:35 Pulse 75 01/10/23 13:35 Resp 18 01/10/23 13:35 BP 130/50 L 01/10/23 13:35 Pulse Ox 100 01/10/23 13:35 O2 Del Method Room Air 01/10/23 13:35 Allergies Allergy/AdvReac Type Severity Reaction Status Date / Time influenza A (H1N1) virus Allergy Unknown Swelling Verified 01/10/23 13:32 vaccine m-jong-split 2008 of Lip/Tongue/Throat Influenza Virus Vaccines Allergy Unknown Swelling Verified 01/10/23 13:32 of Lip/Tongue/Throat phenobarbital AdvReac Mild Hallucinati Verified 01/10/23 13:32 ng Home Medications Medication Instructions Recorded Confirmed Type magnesium oxide 400 mg (241.3 mg 400 mg PO QAM 30 days #30 tabs 09/03/19 01/08/23 Rx magnesium) tablet simvastatin 40 mg tablet 40 mg PO HS 12/12/20 01/08/23 History calcium carbonate 600 mg calcium 600 mg PO BID 04/15/22 01/08/23 History (1,500 mg) tablet omeprazole 20 mg capsule,delayed 20 mg PO DAILY 04/15/22 01/08/23 History release ezetimibe 10 mg tablet 10 mg PO DAILY #90 tabs 04/23/22 01/08/23 Rx aspirin 81 mg tablet,delayed 81 mg PO DAILY 08/11/22 01/08/23 History release ferrous sulfate 325 mg (65 mg 325 mg PO HS 08/11/22 01/08/23 History iron) capsule,extended release meclizine 12.5 mg tablet 12.5 mg PO Q12H PRN dizziness #180 09/17/22 01/08/23 Rx tabs docusate sodium 100 mg capsule 100 mg PO DAILY PRN constipation 09/23/22 01/08/23 Rx (Colace) #90 caps acetaminophen 500 mg capsule 500 mg PO Q6H PRN Pain #90 caps 10/13/22 01/08/23 Rx furosemide 20 mg tablet 20 mg PO QAM #90 tabs 11/02/22 01/08/23 Rx empagliflozin 10 mg tablet 25 mg PO DAILY 11/15/22 01/08/23 History (Jardiance) sitagliptin phosphate 100 mg 100 mg PO DAILY 11/15/22 01/08/23 History tablet (Januvia) allopurinol 100 mg tablet 100 mg PO DAILY #90 tabs 11/30/22 01/08/23 Rx ketoconazole 2 % shampoo 1 applic topical 3XW #120 mL 11/30/22 01/08/23 Rx trazodone 50 mg tablet 25 mg PO QHS PRN insomnia #45 tabs 11/30/22 01/08/23 Rx paroxetine HCl 10 mg tablet 10 mg PO DAILY #90 tabs 12/02/22 01/08/23 Rx clopidogrel 75 mg tablet 75 mg PO DAILY 12/24/22 01/08/23 History colchicine 0.6 mg tablet 0.6 mg PO DAILY 12/24/22 01/08/23 History fluticasone propionate 50 1 spray intranasal BID 12/24/22 01/08/23 History mcg/actuation nasal spray,suspension metoprolol tartrate 50 mg tablet 50 mg PO Q12HR 1 month #60 tabs 12/29/22 01/08/23 Rx sodium chloride 1,000 mg soluble 1,000 mg PO DAILY 1 month #30 tabs 12/29/22 01/08/23 Rx tablet bisacodyl 10 mg rectal suppository 10 mg RECTAL DAILY PRN Constipation 01/08/23 01/08/23 History cholecalciferol (vitamin D3) 1,250 1,250 mcg PO WEEKLY 01/08/23 01/08/23 History mcg (50,000 unit) capsule diphenhydramine HCl 25 mg tablet 25 mg PO Q8H PRN Itching 01/08/23 01/08/23 History glipizide 5 mg tablet 5 mg PO DAILY 01/08/23 01/08/23 History insulin glargine 100 unit/mL 15 unit subcut HS 01/08/23 01/08/23 History subcutaneous solution (Lantus U-100 Insulin) insulin lispro 100 unit/mL 8 unit subcut TID 01/08/23 01/08/23 History subcutaneous solution magnesium citrate 300 ml PO DAILY PRN Constipation 01/08/23 01/08/23 History magnesium hydroxide 400 mg/5 mL 400 mg PO HS PRN Constipation 01/08/23 01/08/23 History oral suspension (Milk of Magnesia) mirtazapine 15 mg tablet 15 mg PO DAILY 01/08/23 01/08/23 History Laboratory Tests 01/09/23 01/09/23 01/10/23 17:17 20:33 07:26 Hgb 8.9 L g/dL (12.0-15.0) Hct 28.8 L % (37.0-47.0) Sodium 138 mmol/L (137-145) Potassium
--- NOTE | 2023-01-10 14:01 | SUR.PREOP ---
patient complaining of pain on top of foot. Upon assessment patient has scabs on the bottom of 2nd and 4th toe on the left foot. Floor RN notified.
--- NOTE | 2023-01-10 15:11 | P.PNIM_ITS ---
Progress Note: A&P Assessment and Plan (1) GI bleed: Qualifiers: GI bleed type/associated pathology: unspecified gastrointestinal hemorrhage type Qualified Code(s): K92.2 - Gastrointestinal hemorrhage, unspecified Code(s): K92.2 - Gastrointestinal hemorrhage, unspecified Status: Acute Assessment and Plan: * Presented with coffee-ground emesis * Hemoglobin declined to 6.5 this admission patient was transfuse 1 unit packed RBCs * Stable today, hemoglobin 8.9 * Recheck this afternoon to ensure remaining stable * EGD completed today revealed gastritis and Graham lesions * Continue Protonix 40 mg daily * Hold aspirin, resume in 3-4 days (2) Acute on chronic anemia: Code(s): D64.9 - Anemia, unspecified Status: Acute Assessment and Plan: * Likely due to acute on chronic GI blood loss * See plan as above (3) Nausea and vomiting: Qualifiers: Vomiting type: unspecified Qualified Code(s): R11.2 - Nausea with vomiting, unspecified Code(s): R11.2 - Nausea with vomiting, unspecified Status: Acute Assessment and Plan: * Resolved (4) CHF (congestive heart failure): Qualifiers: Heart failure chronicity: acute on chronic Heart failure type: right- sided Qualified Code(s): I50.813 - Acute on chronic right heart failure Code(s): I50.9 - Heart failure, unspecified Status: Acute Assessment and Plan: * Clinically stable (5) Type 2 diabetes mellitus with hyperglycemia, with long-term current use of insulin: Code(s): E11.65 - Type 2 diabetes mellitus with hyperglycemia; Z79.4 - senior living (current) use of insulin Status: Acute Assessment and Plan: * Blood sugars are well controlled at this time * Continue Lantus 10 units q.h.s. * Continue with Accu-Cheks, sliding scale insulin, hypoglycemic protocol (6) Stage 3b chronic kidney disease: Code(s): N18.32 - Chronic kidney disease, stage 3b Status: Acute Assessment and Plan: * Renal function is consistent with baseline (7) Hyperkalemia: Code(s): E87.5 - Hyperkalemia Status: Acute Assessment and Plan: * Etiology unclear, potassium increased to 5.2 today * Low-potassium diet * Resume Lasix * Repeat potassium this afternoon to ensure remaining stable Plan Awaiting insurance authorization for SNF placement Subjective Date/time seen: 01/10/23 10:00 Interval history: Date of service: 01/10/2023 Elizabeth Negron is an 87-year-old female with a history of aortic stenosis, anemia, CKD, diastolic CHF, hypertension, and type 2 diabetes mellitus who is seen in follow-up for GI bleeding. Today she complains of a frontal headache which she states is due to feeling hungry as she has been NPO while awaiting EGD today. She denies abdominal pain, epigastric pain, nausea, vomiting. Denies fever, chills, dizziness, lightheadedness. No urinary symptoms. Complains of pain in her left 2nd toe. Review of Systems Review of Systems: All systems reviewed & are unremarkable except as noted in HPI and below Exam Narrative: General: Thin, well-appearing 87-year-old female, sitting up in bed, comfortable, NARD Neuro: awake, alert and oriented x4, speech clear, no focal neuro deficits noted HEENMT: normocephalic, atraumatic, EOMI, sclerae anicteric Respiratory: clear to auscultation bilaterally, nonlabored breathing Cardio: regul
--- NOTE | 2023-01-10 15:11 | PM.IMPN ---
Progress Note: A&P Assessment and Plan (1) GI bleed: Qualifiers: GI bleed type/associated pathology: unspecified gastrointestinal hemorrhage type Qualified Code(s): K92.2 - Gastrointestinal hemorrhage, unspecified Code(s): K92.2 - Gastrointestinal hemorrhage, unspecified Status: Acute Assessment and Plan: Presented with coffee-ground emesis Hemoglobin declined to 6.5 this admission patient was transfuse 1 unit packed RBCs Stable today, hemoglobin 8.9 Recheck this afternoon to ensure remaining stable EGD completed today revealed gastritis and Graham lesions Continue Protonix 40 mg daily Hold aspirin, resume in 3-4 days (2) Acute on chronic anemia: Code(s): D64.9 - Anemia, unspecified Status: Acute Assessment and Plan: Likely due to acute on chronic GI blood loss See plan as above (3) Nausea and vomiting: Qualifiers: Vomiting type: unspecified Qualified Code(s): R11.2 - Nausea with vomiting, unspecified Code(s): R11.2 - Nausea with vomiting, unspecified Status: Acute Assessment and Plan: Resolved (4) CHF (congestive heart failure): Qualifiers: Heart failure chronicity: acute on chronic Heart failure type: right-sided Qualified Code(s): I50.813 - Acute on chronic right heart failure Code(s): I50.9 - Heart failure, unspecified Status: Acute Assessment and Plan: Clinically stable (5) Type 2 diabetes mellitus with hyperglycemia, with long-term current use of insulin: Code(s): E11.65 - Type 2 diabetes mellitus with hyperglycemia; Z79.4 - shelter (current) use of insulin Status: Acute Assessment and Plan: Blood sugars are well controlled at this time Continue Lantus 10 units q.h.s. Continue with Accu-Cheks, sliding scale insulin, hypoglycemic protocol (6) Stage 3b chronic kidney disease: Code(s): N18.32 - Chronic kidney disease, stage 3b Status: Acute Assessment and Plan: Renal function is consistent with baseline (7) Hyperkalemia: Code(s): E87.5 - Hyperkalemia Status: Acute Assessment and Plan: Etiology unclear, potassium increased to 5.2 today Low-potassium diet Resume Lasix Repeat potassium this afternoon to ensure remaining stable Plan Awaiting insurance authorization for SNF placement Subjective Date/time seen: 01/10/23 10:00 Interval history: Date of service: 01/10/2023 Elizabeth Negron is an 87-year-old female with a history of aortic stenosis, anemia, CKD, diastolic CHF, hypertension, and type 2 diabetes mellitus who is seen in follow-up for GI bleeding. Today she complains of a frontal headache which she states is due to feeling hungry as she has been NPO while awaiting EGD today. She denies abdominal pain, epigastric pain, nausea, vomiting. Denies fever, chills, dizziness, lightheadedness. No urinary symptoms. Complains of pain in her left 2nd toe. Review of Systems Review of Systems: All systems reviewed & are unremarkable except as noted in HPI and below Exam Narrative: General: Thin, well-appearing 87-year-old female, sitting up in bed, comfortable, NARD Neuro: awake, alert and oriented x4, speech clear, no focal neuro deficits noted HEENMT: normocephalic, atraumatic, EOMI, sclerae anicteric Respiratory: clear to auscultation bilaterally, nonlabored breathing Cardio: regular rate, regular rhythm with S1-S2 Abdomen: nondistended, normoactive bowel sounds, soft, nontender to palpation Extremities: no edema, erythema, or tenderness to palpation, able to wiggle toes bilaterally Skin: No evidence of skin breakdown on left toes, no rashes or lesions, warm and dry Psych: appropriate mood and affect, judgment and insight intact Objective Data Vital Signs Vital Signs: Vital Signs - 24 hr 01/09/23 16:00 01/09/23 20:14 01/09/23 22:28 Temperature 99 F Pulse R
[2023-01-10 15:35] LABS: Hematocrit 33.2 % (37.0-47.0); Hemoglobin 9.9 g/dL (12.0-15.0)
[2023-01-10] MEDS: MIRTAZAPINE 15 MG TABLET PO (15:36)
[2023-01-10] MEDS: PARoxetine 10 MG TABLET PO (15:36)
[2023-01-10] MEDS: MAGNESIUM OXIDE 400 MG TABLET PO (15:36)
[2023-01-10] MEDS: FLUTICASONE PROPIONATE 0.05% NA SPR 16 GM BTL (*BKC) 1 SPRAY NASAL ×2 (15:37→20:14)
[2023-01-10] MEDS: EMPAGLIFLOZIN 25 MG TABLET PO (15:37)
[2023-01-10] MEDS: EZETIMIBE 10 MG TABLET PO (15:37)
[2023-01-10] MEDS: SODIUM CHLORIDE 1 GM TABLET PO (15:37)
[2023-01-10] MEDS: allopurinoL 100 MG TABLET PO (15:37)
[2023-01-10 15:48] LABS: Potassium 5.1 mmol/L (3.4-5.0)
[2023-01-10 17:06] LABS: Glucose Point of Care 106 mg/dl (65-105)
[2023-01-10] MEDS: CALCIUM CARBONATE (OSCAL) 500 MG TABLET PO (17:43)
[2023-01-10] MEDS: FERROUS SULFATE 324 MG TABLET PO (20:14)
[2023-01-10] MEDS: traZODone HCL 25 MG TABLET PO (20:15)
[2023-01-10] MEDS: SIMVASTATIN 20 MG TABLET 40 MG PO (20:15)
[2023-01-10] MEDS: PANTOPRAZOLE 40 MG TABLET PO (20:16)
[2023-01-11] VITALS (8 sets, daily range): BP systolic 127–135; BP diastolic 56–62; PULSE 62–83; RESP 18; TEMP 36.6–37.2; O2SAT 97–98
[2023-01-11 05:25] LABS: Hematocrit 29.1 % (37.0-47.0); Mean Corpuscular HGB Conc 30.9 g/dl (32-36); Mean Platelet Volume 8.6 fl (7.4-10.4); Platelet Count Result 201 k/mm3 (150-375); Red Cell Distribution Width 17.3 % (11.5-14.5); White Blood Count 3.6 K/mm3 (4.5-10.0)
[2023-01-11 05:46] LABS: Anion Gap 3 mmol/L (8-16); Blood Urea Nitrogen 21 mg/dL (7-17); Calcium 8.5 mg/dL (8.4-10.2); Carbon Dioxide 32 mmol/L (22-30); Chloride 104 mmol/L (98-107); Estimated CRCL calculation 29 ml/min; Estimated Glomerular Filt Rate 43; Glucose 137 mg/dL (65-110); Potassium 5.1 mmol/L (3.4-5.0); Sodium 139 mmol/L (137-145)
[2023-01-11 08:25] LABS: Glucose Point of Care 141 mg/dl (65-105)
[2023-01-11] MEDS: FLUTICASONE PROPIONATE 0.05% NA SPR 16 GM BTL (*BKC) 1 SPRAY NASAL (08:35)
[2023-01-11] MEDS: METOPROLOL TARTRATE 50 MG TAB PO (08:35)
[2023-01-11] MEDS: MIRTAZAPINE 15 MG TABLET PO (08:35)
[2023-01-11] MEDS: MAGNESIUM OXIDE 400 MG TABLET PO (08:35)
[2023-01-11] MEDS: PANTOPRAZOLE 40 MG TABLET PO (08:35)
[2023-01-11] MEDS: EMPAGLIFLOZIN 25 MG TABLET PO (08:35)
[2023-01-11] MEDS: CALCIUM CARBONATE (OSCAL) 500 MG TABLET PO (08:35)
[2023-01-11] MEDS: allopurinoL 100 MG TABLET PO (08:35)
[2023-01-11] MEDS: ERGOCALCIFEROL 50,000 UNITS CAPSULE 50000 UNITS PO (08:35)
[2023-01-11] MEDS: SODIUM CHLORIDE 1 GM TABLET PO (08:35)
[2023-01-11] MEDS: EZETIMIBE 10 MG TABLET PO (08:35)
[2023-01-11] MEDS: PARoxetine 10 MG TABLET PO (08:35)
[2023-01-11] MEDS: FUROSEMIDE 20 MG TABLET PO (09:26)
[2023-01-11 12:06] LABS: Glucose Point of Care 235 mg/dl (65-105)
[2023-01-11] MEDS: INSULIN ASPART (*BKC) 100 UNITS/ML SUB-Q (12:49)
--- NOTE | 2023-01-11 12:53 | WPDGIPROGNO ---
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 Status: Acute Assessment and Plan: ok to resume in 2-3 days (4) Type 2 diabetes mellitus with hyperglycemia, with long-term current use of insulin: Code(s): E11.65 - Type 2 diabetes mellitus with hyperglycemia; Z79.4 - senior living (current) use of insulin Status: Acute (5) Nausea and vomiting: Qualifiers: Vomiting type: unspecified Qualified Code(s): R11.2 - Nausea with vomiting, unspecified Code(s): R11.2 - Nausea with vomiting, unspecified Status: Acute Assessment and Plan: resolved (6) Acute on chronic anemia: Code(s): D64.9 - Anemia, unspecified Status: Acute Assessment and Plan: stable now Subjective Date/time seen: 01/11/23 12:53 Interval history: egd showed large hiatal hernia with gastritis and graham lesions (non-bleeding) she is doing ok, tolerating regular diet, no more episodes of bleeding Review of Systems Review of Systems: All systems reviewed & are unremarkable except as noted in HPI and below Exam Const: General: comfortable and no acute distress HENMT: Face/Nose/Sinus: Normal nares present Eyes: General: appearance normal, both eyes and all related structures Neck: Neck: supple Resp: Auscultation: clear to auscultation bilaterally Cardio: Rate: regular rate Rhythm: regular rhythm GI: Inspection: non-distended GI Palp: Yes Soft to palpation and No Guarding due to palpation present (GI) Auscultation: normal bowel sounds Skin: General skin exam: normal color Neuro: Speech: normal speech Motor exam (neuro): 5/5 motor strength present throughout Extrem: General: normal to inspection Psych: Mental Status: mental status grossly normal Objective Data Vital Signs Vital Signs: Vital Signs - 24 hr 01/10/23 13:21 01/10/23 13:35 01/10/23 14:46 Temperature 97.2 F L 97.2 F L Pulse Rate 83 75 64 Respiratory Rate 16 18 20 Blood Pressure 133/66 130/50 L 101/54 L Pulse Oximetry 100 100 95 Oxygen Delivery Room Air Room Air 01/10/23 14:56 01/10/23 16:00 01/10/23 19:55 Temperature Pulse Rate 65 70 Respiratory Rate 15 Blood Pressure 136/70 Pulse Oximetry 97 Oxygen Delivery Room Air Room Air 01/10/23 20:03 01/10/23 20:14 01/10/23 20:00 Temperature 98.8 F Pulse Rate 71 71 74 Respiratory Rate 18 Blood Pressure 139/59 L Pulse Oximetry 100 Oxygen Delivery 01/11/23 00:00 01/11/23 04:00 01/11/23 06:00 Temperature 99.0 F Pulse Rate 62 78 77 Respiratory Rate 18 Blood Pressure 135/56 L Pulse Oximetry 97 Oxygen Delivery 01/11/23 08:35 01/11/23 08:00 01/11/23 08:00 Temperature Pulse Rate 83 66 Respiratory Rate Blood Pressure Pulse Oximetry Oxygen Delivery Room Air Intake/Output Intake/Output: Intake & Output 01/08/23 01/09/23 01/10/23 01/11/23 23:59 23:59 23:59 23:59 Intake Total 2455 3160 740 480 Output Total 500 Balance 1955 3160 740 480 Meds/Results Medications: Active Medications Generic Name Dose Route Start Last Admin Trade Name Freq PRN Reason Stop Dose Admin Acetaminophen 500 mg 01/08/23 14:17 01/10/23 09:56 Acetaminophen 500 Mg Tablet PO 500 mg Q6H PRN Administration Pain Allopurinol 100 mg 01/08/23 14:35 01/11/23 08:35 Allopurinol 100 Mg Tablet PO 100 mg DAILY MELANIE Administration Bisacodyl 10 mg 01/08/23 14:17 Bisacodyl 10 Mg Suppos
--- NOTE | 2023-01-11 13:50 | WPDANESPN ---
Anes - Prog Note Post-Op Date/Time: 01/11/23 13:50 Cardiovascular status: normal Respiratory status: normal Airway patency: baseline Mental status: baseline Post-Op hydration status: normal Vital Signs: Last Vital Signs Temp 37.2 C 01/11/23 06:00 Pulse 83 01/11/23 08:35 Resp 18 01/11/23 06:00 BP 135/56 L 01/11/23 06:00 Pulse Ox 97 01/11/23 06:00 O2 Del Method Room Air 01/11/23 08:00 Pain Score (VAS): 0/10 I/O: Intake & Output 01/10/23 01/11/23 01/11/23 23:59 07:59 15:59 Intake Total 240 960 Balance 240 960 Laboratory Tests 01/11/23 05:12 01/11/23 05:12 01/10/23 01/10/23 01/11/23 15:24 17:04 05:12 WBC 3.6 L RBC 3.00 L Hgb 9.9 L 9.0 L Hct 33.2 L 29.1 L MCV 97.0 MCH 30.0 MCHC 30.9 L RDW 17.3 H Plt Count 201 MPV 8.6 Sodium 139 Potassium 5.1 H 5.1 H Chloride 104 Carbon Dioxide 32 H Anion Gap 3 L BUN 21 H Creatinine 1.20 H Estim Creat Clear Calc 29 Estimated GFR 43 L Glucose 137 H POC Capillary Glucose 106 H Calcium 8.5 01/11/23 01/11/23 08:22 12:02 WBC RBC Hgb Hct MCV MCH MCHC RDW Plt Count MPV Sodium Potassium Chloride Carbon Dioxide Anion Gap BUN Creatinine Estim Creat Clear Calc Estimated GFR Glucose POC Capillary Glucose 141 H 235 H Calcium Post-procedural complaints: none Patient Feedback: Patient satisfied with anesthetic care.
[2023-01-11 14:31] LABS: Potassium 4.8 mmol/L (3.4-5.0)
--- NOTE | 2023-01-11 15:38 | P.DS_ITS ---
DS: Admitting Diagnosis Discharge Date 01/11/2023 Admitting Diagnosis GI bleed DS: Discharge Diagnosis Discharge Diagnosis (1) GI bleed: Qualifiers: GI bleed type/associated pathology: unspecified gastrointestinal hemorrhage type Qualified Code(s): K92.2 - Gastrointestinal hemorrhage, unspecified Code(s): K92.2 - Gastrointestinal hemorrhage, unspecified Status: Acute Assessment and Plan: * Presented with coffee-ground emesis * Hemoglobin declined to 6.5 this admission and patient was transfused 1 unit packed RBCs * EGD completed on 01/10 revealed gastritis and Graham lesions * Begin Protonix 40 mg b.i.d. * Hold aspirin for 3-4 days per GI, resume on 01/14/2023 * H&H remained stable, no ongoing bleeding (2) Acute on chronic anemia: Code(s): D64.9 - Anemia, unspecified Status: Acute Assessment and Plan: * Likely due to acute on chronic GI blood loss * See plan as above * Hemoglobin 9.0 at time of discharge (3) Nausea and vomiting: Qualifiers: Vomiting type: unspecified Qualified Code(s): R11.2 - Nausea with vomiting, unspecified Code(s): R11.2 - Nausea with vomiting, unspecified Status: Acute Assessment and Plan: * Resolved (4) CHF (congestive heart failure): Qualifiers: Heart failure chronicity: acute on chronic Heart failure type: right- sided Qualified Code(s): I50.813 - Acute on chronic right heart failure Code(s): I50.9 - Heart failure, unspecified Status: Acute Assessment and Plan: * Clinically stable * Continue furosemide (5) Type 2 diabetes mellitus with hyperglycemia, with long-term current use of insulin: Code(s): E11.65 - Type 2 diabetes mellitus with hyperglycemia; 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 * Low-potassium diet implemented * Lasix resumed * Resolved. Potassium 4.8 at time of discharge DS: Summary Hospital Course Hospital Course: Elizabeth Negron is an 87-year-old female with a history of aortic stenosis, anemia, CKD, diastolic CHF, hypertension, type 2 diabetes mellitus who presented to the emergency department on 01/08/2023 with coffee-ground emesis. On presentation to the ED, her vital signs are stable, she was afebrile, hemoglobin 8.4, potassium 4.6, creatinine 1.2. She was admitted to the hospitalist service for further evaluation management was seen in consultation by Gastroenterology. Please see above for further details. Patient underwent EGD on 01/10/2023 which revealed gastritis and Graham lesions, felt to be the etiology for GI bleeding. Started on Protonix. Aspirin held. Will follow up with GI as an outpatient as well as her primary care provider. Completed. Appear on 01/11/2023 and patient was accepted for SNF placement. Will continue PT/OT at SNF. Patient felt comfortable with plans for discharge home, she was feeling back to her usual state of health. Discussed medication changes and
--- NOTE | 2023-01-11 15:38 | PM.DS ---
DS: Admitting Diagnosis Discharge Date 01/11/2023 Admitting Diagnosis GI bleed DS: Discharge Diagnosis Discharge Diagnosis (1) GI bleed: Qualifiers: GI bleed type/associated pathology: unspecified gastrointestinal hemorrhage type Qualified Code(s): K92.2 - Gastrointestinal hemorrhage, unspecified Code(s): K92.2 - Gastrointestinal hemorrhage, unspecified Status: Acute Assessment and Plan: Presented with coffee-ground emesis Hemoglobin declined to 6.5 this admission and patient was transfused 1 unit packed RBCs EGD completed on 01/10 revealed gastritis and Graham lesions Begin Protonix 40 mg b.i.d. Hold aspirin for 3-4 days per GI, resume on 01/14/2023 H&H remained stable, no ongoing bleeding (2) Acute on chronic anemia: Code(s): D64.9 - Anemia, unspecified Status: Acute Assessment and Plan: Likely due to acute on chronic GI blood loss See plan as above Hemoglobin 9.0 at time of discharge (3) Nausea and vomiting: Qualifiers: Vomiting type: unspecified Qualified Code(s): R11.2 - Nausea with vomiting, unspecified Code(s): R11.2 - Nausea with vomiting, unspecified Status: Acute Assessment and Plan: Resolved (4) CHF (congestive heart failure): Qualifiers: Heart failure chronicity: acute on chronic Heart failure type: right-sided Qualified Code(s): I50.813 - Acute on chronic right heart failure Code(s): I50.9 - Heart failure, unspecified Status: Acute Assessment and Plan: Clinically stable Continue furosemide (5) Type 2 diabetes mellitus with hyperglycemia, with long-term current use of insulin: Code(s): E11.65 - Type 2 diabetes mellitus with hyperglycemia; 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 Low-potassium diet implemented Lasix resumed Resolved. Potassium 4.8 at time of discharge DS: Summary Hospital Course Hospital Course: Elizabeth Negron is an 87-year-old female with a history of aortic stenosis, anemia, CKD, diastolic CHF, hypertension, type 2 diabetes mellitus who presented to the emergency department on 01/08/2023 with coffee-ground emesis. On presentation to the ED, her vital signs are stable, she was afebrile, hemoglobin 8.4, potassium 4.6, creatinine 1.2. She was admitted to the hospitalist service for further evaluation management was seen in consultation by Gastroenterology. Please see above for further details. Patient underwent EGD on 01/10/2023 which revealed gastritis and Graham lesions, felt to be the etiology for GI bleeding. Started on Protonix. Aspirin held. Will follow up with GI as an outpatient as well as her primary care provider. Completed. Appear on 01/11/2023 and patient was accepted for SNF placement. Will continue PT/OT at SNF. Patient felt comfortable with plans for discharge home, she was feeling back to her usual state of health. Discussed medication changes and educated patient on worrisome signs and symptoms for which to return. Discharged in hemodynamically stable condition on 01/11/2023. Time Spent with Patient Time attestation: Total time spent providing and/or coordinating discharge services: 55 minutes Time spent: Greater than 30 minutes Exam Narrative: General: Well-nourished, well-appearing 87-year-old female, sitting up in bed, comfortable, NARD Neuro
--- NOTE | 2023-01-11 15:53 | PCCCNOTE ---
Assisting digital account coordinator, called to [facility] transferred to scratch polisherpal [place], Auth # [id number], Start of care today 01/11/23 3 day approval 01/11-01/13/23 with NRD on 01/13/23 . Called to Cristela at [facility] and provided the auth number, approval dates and fax # for review. Per Cristela, ready for patient today now that approval received.
[2023-01-11 16:53] LABS: EDCOVIDSCREEN Negative (Negative)
[2023-01-13 09:55] LABS: Haptoglobin 186 mg/dL (43-212)
== END 2023-01-11 17:00 ==
LOC: ANHED 06:23 → ANH2MED 01-09 15:15 → ANH3MEDSUR 01-13 09:31
PROVIDERS: Internal Medicine; Internal Medicine Gastroenterology; Admitting Provider Internal Medicine; Emergency Provider Emergency Medicine; PCP Family Medicine; Visit Provider Physician Assistant
PROC: 0DJ08ZZ Inspection of Upper Intestinal Tract, Via Natural or Artificial Opening Endoscopic (ICD-10-PCS; CPT 43235; principal; 2023-01-10 15:45)
DX: K44.9 Diaphragmatic hernia without obstruction or gangrene (principal); K29.70 Gastritis, unspecified, without bleeding; K31.89 Other diseases of stomach and duodenum; D64.9 Anemia, unspecified; D50.0 Iron deficiency anemia secondary to blood loss (chronic); I35.0 Nonrheumatic aortic (valve) stenosis; M19.90 Unspecified osteoarthritis, unspecified site; I13.0 Hypertensive heart and chronic kidney disease with heart failure and stage 1 through stage 4 chronic kidney disease, or unspecified chronic kidney disease; I50.813 Acute on chronic right heart failure; E11.22 Type 2 diabetes mellitus with diabetic chronic kidney disease; N18.32 Chronic kidney disease, stage 3b; Z20.822 Contact with and (suspected) exposure to COVID-19; K21.9 Gastro-esophageal reflux disease without esophagitis; E78.5 Hyperlipidemia, unspecified; I45.10 Unspecified right bundle-branch block; E11.65 Type 2 diabetes mellitus with hyperglycemia; K80.20 Calculus of gallbladder without cholecystitis without obstruction; E11.51 Type 2 diabetes mellitus with diabetic peripheral angiopathy without gangrene; Z98.62 Peripheral vascular angioplasty status; I48.0 Paroxysmal atrial fibrillation; Z97.8 Presence of other specified devices; M17.0 Bilateral primary osteoarthritis of knee; K92.0 Hematemesis; I70.238 Atherosclerosis of native arteries of right leg with ulceration of other part of lower leg; I70.248 Atherosclerosis of native arteries of left leg with ulceration of other part of lower leg; L98.499 Non-pressure chronic ulcer of skin of other sites with unspecified severity; M10.9 Gout, unspecified; E87.5 Hyperkalemia; Z90.49 Acquired absence of other specified parts of digestive tract; Z79.82 Long term (current) use of aspirin; Z79.02 Long term (current) use of antithrombotics/antiplatelets; Z79.1 Long term (current) use of non-steroidal anti-inflammatories (NSAID); Z79.4 Long term (current) use of insulin; Z79.84 Long term (current) use of oral hypoglycemic drugs; Z79.51 Long term (current) use of inhaled steroids; Z79.899 Other long term (current) drug therapy
CPT/HCPCS: 43239; 36415; 36430; 74177; 80048; 80053; 80069; 81001; 82274; 82607; 82746; 82948; 83010; 83036; 83540; 83550; 83605; 83690; 83735; 84132; 84443; 85014; 85018; 85025; 85027; 85046; 86850; 86900; 86901; 86920; 87086; 87088; 87426; 88305; 93005; 96361; 96365; 96374; 96375; 96376; 97110; 97161; 97165; 97530; 97535; 99285; A9270; C9113; C9803; G0378; J1756; J1815; J1940; J2405; J2704; J7030; J7120; P9016; Q9967

== ENCOUNTER 2023-02-10 14:53 | Outpatient (CLI) | payer MEDICARE, SELFPAY ==
--- NOTE | ~2023-02-10 | MR_ITS ---
EXAMINATION: MR foot LT wo con DATE: 02/10/2023 17:27 INDICATION: Acute osteomyelitis of left foot. Left foot swelling. TECHNIQUE: Magnetic resonance imaging (MRI) of the left foot was performed without intravenous contra st. 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 There is dorsiflexion of the metatars ophalangeal joints and flexion of the interphalangeal joints. There is a large effusion of first meta tarsophalangeal joint with chronic erosions of bone. There are erosions of second middle and distal p halanges. There are erosions of third proximal and middle phalanges. There are chronic erosions versu s surgical change of head of fourth proximal phalanx. There are erosions of calcaneus at the angle of [place]. There is a chronic linear foreign body between the second and third metatarsals. 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 There is severe fatty atrophy of the musculature. T here is subcutaneous edema about the ankle. IMPRESSION: 1. Polyarticular erosions of bone, stable from 11/09/2022, likely gout. 2. Chronic linear foreign body between the second and third metatarsals. Reviewed, dictated and finalized at location E.
--- NOTE | ~2023-02-10 | MR_ITS ---
EXAMINATION: MR foot RT wo con DATE: 02/10/2023 17:27 INDICATION: Acute osteomyelitis of right foot. Swelling. TECHNIQUE: Magnetic resonance imaging (MRI) of the right foot was performed without intravenous contr ast. COMPARISON: Right foot radiographs 04/29/21 FINDINGS: There is moderate hallux valgus. There is dorsiflexion of the metatarsophalangeal joints an d flexion of the interphalangeal joints. There is edema-like marrow signal intensity involving second middle and distal phalanges with erosions of bone. There are erosions of first metatarsophalangeal j oint with large joint effusion. There is mild osteoarthritis of some of the midfoot joints. There is severe fatty atrophy of the musculature of the foot. There is tenosynovitis involving extensor digito rum longus. IMPRESSION: 1. Chronic erosions at first metatarsophalangeal joint and second distal interphalangeal joint with i nterval worsening, likely gout. Reviewed, dictated and finalized at location E. IMPRESSION: 1. Chronic erosions at first metatarsophalangeal joint and second distal interp halangeal joint with interval worsening, likely gout.
== END 2023-02-10 14:54 | disposition home or self-care (01) ==
PROVIDERS: PCP Family Medicine; Visit Provider Podiatrist Foot & Ankle Surgery
DX: M86.171 Other acute osteomyelitis, right ankle and foot (principal); M86.172 Other acute osteomyelitis, left ankle and foot
CPT/HCPCS: 73718

== ENCOUNTER 2023-04-20 15:00 | Outpatient (CLI) | payer MEDICARE, SELFPAY ==
[2023-04-20 15:59] LABS: Basophils Percent Auto 0.8 % (0.2-1.2); Eosinophils Absolute Auto 0.2 K/mm3 (0-0.3); Eosinophils Percent Auto 3.1 % (0-4.4); Hematocrit 24.1 % (37.0-47.0); Hemoglobin 7.3 g/dL (12.0-15.0); Immature Granulocyte Absolute 0.03 K/mm3 (0.00-0.031); Immature Granulocyte Percent A 0.6 % (0-0.5); Lymphocytes Absolute Auto 0.95 K/mm3 (0.9-3.2); Lymphocytes Percent Auto 19.4 % (18.3-44.2); Mean Corpuscular HGB Conc 30.3 g/dl (32-36); Mean Corpuscular Hemoglobin 32.9 pg (26-34); Mean Corpuscular Volume 108.6 fl (80-100); Mean Platelet Volume 9.8 fl (7.4-10.4); Monocytes Absolute Auto 0.3 K/mm3 (0.1-0.6); Monocytes Percent Auto 6.5 % (2.6-8.5); Neutrophils Absolute Auto 3.4 K/mm3 (1.3-6.7); Neutrophils Percent Auto 69.6 % (45.5-73.1); Platelet Count Result 190 k/mm3 (150-375); Red Blood Count 2.22 M/mm3 (4.2-5.4); Red Cell Distribution Width 18.2 % (11.5-14.5); White Blood Count 4.9 K/mm3 (4.5-10.0)
[2023-04-20 16:14] LABS: Alanine Aminotransferase 20 U/L (6-35); Albumin Level 3.5 g/dL (3.5-5.1); Alkaline Phosphatase 85 U/L (38-126); Anion Gap 8 mmol/L (8-16); Aspartate Amino Transferase 33 U/L (14-36); Bilirubin,Total 0.3 mg/dL (0.2-1.3); Blood Urea Nitrogen 46 mg/dL (7-17); Calcium 8.2 mg/dL (8.4-10.2); Carbon Dioxide 24 mmol/L (22-30); Chloride 106 mmol/L (98-107); Estimated Glomerular Filt Rate 27; Glucose 186 mg/dL (65-110); Potassium 4.4 mmol/L (3.4-5.0); Sodium 138 mmol/L (137-145)
[2023-04-20 16:27] LABS: Platelet Estimate Adequate (Adequate); Schistocytes None Seen (NORMAL)
[2023-04-20 16:28] LABS: Anisocytosis 3+ (NORMAL); Macrocytosis 1+ (NORMAL)
[2023-04-20 16:29] LABS: Hypochromasia 1+ (NORMAL)
== END 2023-04-20 15:01 | disposition home or self-care (01) ==
PROVIDERS: PCP Family Medicine; Visit Provider Physician Assistant
DX: K92.1 Melena (principal)
CPT/HCPCS: 36415; 80053; 85025

== ENCOUNTER 2023-04-20 17:20 | Inpatient (IN) | payer MEDICARE, SELFPAY ==
[2023-04-20] VITALS (10 sets, daily range): BP systolic 119–163; BP diastolic 36–90; PULSE 69–81; RESP 13–22; TEMP 36.3–36.9; O2SAT 97–100
--- NOTE | ~2023-04-20 | CT_ITS ---
EXAMINATION: CT abdomen pelvis wo con DATE: 04/20/2023 18:52 INDICATION: Bloody stool for 2 weeks. 7.4 hemoglobin TECHNIQUE: Computed tomography (CT) of the abdomen and pelvis was performed without intravenous contr ast. Automated exposure control and iterative reconstruction technique were employed. Exam dose: 516 .85 mGy-cm total exam DLP. COMPARISON: 01/08/2023 KUB 01/08/2023 CT abdomen pelvis with IV contrast material FINDINGS: Relatively stable dependent discoid density in the posteromedial right lung base is likely scarring and/or persistent discoid atelectasis. No consolidation is noted at the lung bases. No pericardial or pleural effusion. Mild cardiomegaly. Coronary artery calcifications. There is some aortic valve calcification. Large sliding hiatal hernia. Cholelithiasis. There is gallbladder wall thickening which may be due to acute or chronic cholecystit is. No pericholecystic fluid or fat stranding is noted. Radionuclide hepatobiliary scan may be helpfu l to differentiate between acute and chronic cholecystitis. No bile duct or pancreatic duct dilatation. No hepatic, splenic, pancreatic, and adrenal space-occupying mass lesion. Approximately 1.4 cm probable right renal cyst. No urinary tract calculus or hydroureteronephrosis. T he urinary bladder is unremarkable except for a small amount of air within the bladder lumen. Status post hysterectomy. There is extensive atherosclerotic calcification of the abdominal aorta but no abdominal aortic aneur ysm. Superior mesenteric artery and inferior mesenteric artery calcification. There is calcification of the origins of the renal arteries. No intraperitoneal or retroperitoneal or pelvic mass lesion or adenopathy or ascites. Diverticulosis of the sigmoid colon; no CT evidence of diverticulitis. Partial right colon resection. No bowel obstruction, bowel wall thickening, pneumatosis or intraperit gunter free air is detected. Compression screw and nail of proximal right femur. Osteoarthritic change at the hip joints. Severe d egenerative disc disease throughout the lumbar and lumbosacral spine. Prominent degenerative changes of the lower thoracic spine as well IMPRESSION: Status post right partial colectomy Diverticulosis of the sigmoid colon; no CT evidence of diverticulitis Cholelithiasis, gallbladder wall thickening Large sliding hiatal hernia Reviewed, dictated and finalized at [facility] Reviewed, dictated and finalized at [facility].
[2023-04-20 17:49] LABS: Basophils Percent Auto 0.7 % (0.2-1.2); Eosinophils Absolute Auto 0.2 K/mm3 (0-0.3); Eosinophils Percent Auto 3.4 % (0-4.4); Hematocrit 23.2 % (37.0-47.0); Immature Granulocyte Absolute 0.01 K/mm3 (0.00-0.031); Immature Granulocyte Percent A 0.2 % (0-0.5); Lymphocytes Absolute Auto 0.83 K/mm3 (0.9-3.2); Mean Corpuscular HGB Conc 29.7 g/dl (32-36); Mean Corpuscular Hemoglobin 31.9 pg (26-34); Mean Corpuscular Volume 107.4 fl (80-100); Mean Platelet Volume 9.5 fl (7.4-10.4); Monocytes Absolute Auto 0.3 K/mm3 (0.1-0.6); Monocytes Percent Auto 6.7 % (2.6-8.5); Neutrophils Absolute Auto 3.1 K/mm3 (1.3-6.7); Platelet Count Result 162 k/mm3 (150-375); Red Blood Count 2.16 M/mm3 (4.2-5.4); Red Cell Distribution Width 17.9 % (11.5-14.5); White Blood Count 4.4 K/mm3 (4.5-10.0)
[2023-04-20 18:00] LABS: Partial Thromboplastin Time 29.6 SECONDS (22.3-36.8)
[2023-04-20 18:01] LABS: Alanine Aminotransferase 21 U/L (6-35); Albumin Level 3.4 g/dL (3.5-5.1); Alkaline Phosphatase 84 U/L (38-126); Anion Gap 5 mmol/L (8-16); Aspartate Amino Transferase 33 U/L (14-36); Bilirubin,Total 0.3 mg/dL (0.2-1.3); Blood Urea Nitrogen 47 mg/dL (7-17); Calcium 8.5 mg/dL (8.4-10.2); Carbon Dioxide 27 mmol/L (22-30); Chloride 106 mmol/L (98-107); Estimated CRCL calculation 20 ml/min; Estimated Glomerular Filt Rate 27; Glucose 207 mg/dL (65-110); Potassium 4.6 mmol/L (3.4-5.0); Sodium 138 mmol/L (137-145)
[2023-04-20 18:09] LABS: Hemoglobin 6.9 g/dL (12.0-15.0)
[2023-04-20 18:11] LABS: Platelet Estimate Adequate (Adequate)
[2023-04-20 18:12] LABS: Hypochromasia 1+ (NORMAL); Schistocytes None Seen (NORMAL)
[2023-04-20 18:13] LABS: Anisocytosis 2+ (NORMAL); Macrocytosis 1+ (NORMAL)
--- NOTE | 2023-04-20 18:20 | ED.GIBLEED ---
HPI - GI Bleed General Chief complaint: GI Bleed Stated complaint: Bleeding from rectum Time Seen by Provider: 04/20/23 18:20 History of Present Illness HPI Narrative: Patient is an 87-year-old female with history of CAD, here with GI bleed. Patient states that about 2 weeks ago she started noticing bright red blood per rectum. She states that it seems to have slowed down a bit at this time and is now dark in color. She denies any associated abdominal pain. She does note she had this similar in the past many years ago. Her last colonoscopy was 7 years ago and she does not remember any abnormalities. She does not take blood thinners but does use a baby aspirin daily. She notes that she had blood work drawn at her facility that she lives at and they noted a low Hgb and sent her in for evaluation. She has experienced some shortness of breath and light headedness which is worse with moving around. No chest pain. Related Data Home Medications Medication Instructions Recorded Confirmed simvastatin 40 mg tablet 40 mg PO HS 12/12/20 04/20/23 calcium carbonate 600 mg calcium 600 mg PO BID 04/15/22 04/20/23 (1,500 mg) tablet aspirin 81 mg tablet,delayed 81 mg PO DAILY 08/11/22 04/20/23 release ferrous sulfate 325 mg (65 mg 325 mg PO HS 08/11/22 04/20/23 iron) capsule,extended release empagliflozin 10 mg tablet 25 mg PO DAILY 11/15/22 04/20/23 (Jardiance) sitagliptin phosphate 100 mg 100 mg PO DAILY 11/15/22 04/20/23 tablet (Januvia) clopidogrel 75 mg tablet 75 mg PO DAILY 12/24/22 04/20/23 colchicine (gout) 0.6 mg tablet 0.6 mg PO DAILY 12/24/22 04/20/23 bisacodyl 10 mg rectal suppository 10 mg RECTAL DAILY PRN Constipation 01/08/23 04/20/23 cholecalciferol (vitamin D3) 1,250 1,250 mcg PO WEEKLY 01/08/23 04/20/23 mcg (50,000 unit) capsule magnesium citrate 300 ml PO DAILY PRN Constipation 01/08/23 04/20/23 magnesium hydroxide 400 mg/5 mL 400 mg PO HS PRN Constipation 01/08/23 04/20/23 oral suspension (Milk of Magnesia) mirtazapine 15 mg tablet 15 mg PO DAILY 01/08/23 04/20/23 Allergies Allergy/AdvReac Type Severity Reaction Status Date / Time influenza A (H1N1) virus Allergy Unknown Swelling Verified 04/20/23 13:54 vaccine [id number] 2008 of Lip/Tongue/Throat Influenza Virus Vaccines Allergy Unknown Swelling Verified 04/20/23 13:54 of Lip/Tongue/Throat phenobarbital AdvReac Mild Hallucinati Verified 04/20/23 13:54 ng Review of Systems Review of Systems: CONSTITUTIONAL: Denies fever, chills, or sweats. EYES: Denies visual changes, redness, or discharge. ENT: Denies rhinorrhea, congestion, sore throat, or otalgia. CARDIOVASCULAR: Light headedness. Denies chest pain RESPIRATORY: Shortness of breath. Denies cough. GASTROINTESTINAL: Denies abdominal pain, nausea, vomiting, or diarrhea. Bright red blood per rectum. GENITOURINARY: Denies dysuria or hematuria. SKIN: Denies rash or itching. MUSCULOSKELETAL: Denies back pain, joint pain, or myalgia. NEUROLOGIC: Denies headache, numbness, or weakness. [facility] Past Medical History Medical History Amputation toe Anemia History of blood transfusions. Aortic valve stenosis [id number] aortic valve stenosis on echocardiogram in April 2021 with a valve area of 1.1 to 1.5 centimeter squared. Arthritis Blood thinned due to long-term anticoagulant use Graham lesion, acute Chronic kidney disease, stage 3 Coffee ground emesis Depression Diabetic peripheral neuropathy Diastolic congestive heart failure Echocardiogram on 12/13/2020 showed normal left ventricular size with moderate consent of left ventricular hypertrophy with overall good left ventricular systolic function with an EF measuring 62%. There was hypokinesis of the basal inferoseptal segment as well as grade 1 diastolic dysfunction with moderately enlarged left atrial chamber and atrial septal aneurysm. Diverticulitis Dysur
[2023-04-20] MEDS: TUBING, BLOOD PLUM PUMP TUBING 1 EACH XX (19:07)
[2023-04-20] MEDS: SODIUM CHLORIDE 0.9% IV 250 ML 30 ML IV CONT (19:07)
[2023-04-20] MEDS: PANTOPRAZOLE SODIUM IV 40 MG VIAL 80 MG IV PUSH (20:37)
--- NOTE | 2023-04-20 23:59 | PM.IMHP ---
H&P: HPI History of Present Illness Date/Time: 04/20/23 23:00 Chief Complaint: Bloody stools. Narrative: This is a very pleasant 87-year-old female with peripheral vascular disease status post left femoral stent previously on clopidogrel though now on aspirin 81 mg daily following GI bleed in December 2022 with EGD showing gastritis and Graham lesions, hypertension, dyslipidemia, type 2 diabetes mellitus, chronic kidney disease, peripheral vascular disease, and diastolic congestive heart failure who presented to the emergency department from [facility] for evaluation of bloody stools. The patient provides the following history. About 2 weeks ago she started noticing small amounts of bright red blood in her stool after bowel movements which initially seemed to slow down however she is now once again starting to pass blood in greater amount. The last couple of days her stools have been darker maroon in color. She has been increasingly weak and has occasional lightheadedness and dizziness as well as shortness of breath with exertion. Labs done as an outpatient showed a low hemoglobin she was sent in for evaluation. Labs today were significant for hemoglobin hematocrit of 6.9 and 23.2% respectively. CT of the abdomen and pelvis did not show any acute findings. She is being admitted in this setting for blood transfusion GI consultation. Review of Systems Review of Systems: Twelve systems were reviewed and are negative except for as per HPI [facility] Past Medical History Medical History (Updated 04/21/23 @ 00:10 by Evie Riddle PA-C) Anemia History of blood transfusions. Aortic valve stenosis [id number] aortic valve stenosis on echocardiogram in April 2021 with a valve area of 1.1 to 1.5 centimeter squared. Arthritis Graham lesion, acute (12/2022) Chronic kidney disease, stage 3 Depression Diabetic peripheral neuropathy Diastolic congestive heart failure Echocardiogram on 12/13/2020 showed normal left ventricular size with moderate consent of left ventricular hypertrophy with overall good left ventricular systolic function with an EF measuring 62%. There was hypokinesis of the basal inferoseptal segment as well as grade 1 diastolic dysfunction with moderately enlarged left atrial chamber and atrial septal aneurysm. Diverticulitis Dysuria Fracture of proximal end of right humerus (07/24/19) Conservative management Gastroesophageal reflux GI bleed Hearing loss, bilateral History of rectal polyps Hyperlipidemia Hypertension Paroxysmal atrial fibrillation Peripheral vascular disease Primary osteoarthritis of both knees Severe pulmonary hypertension Noted on echocardiogram April 2021. PASP was 65 mmHg. Stenosis of right internal carotid artery 51% stenosis of the proximal right ICA on CTA in December 2021. Trigger finger of both hands Type 2 diabetes mellitus Hemoglobin A1c was 6.8% on 12/12/2020. Surgical History Surgical History (Updated 04/21/23 @ 00:07 by Evie Riddle PA-C) Amputation toe (08/2022) Left 5th toe Fracture of right hip requiring operative repair (~2016) History of appendectomy History of bilateral cataract extraction (~2015) History of colon resection (~2016) History of hysterectomy History of inguinal hernia repair (~2016) History of rectal polypectomy History of toe surgery Presence of arterial stent Left leg Family History Family History Sibling Carcinoma of colon Father Black lung disease Heart disease Hypertension Mother Hypertension Other Diabetes mellitus Family history of arthritis Family history of gout Family history of heart disease in male family member before age 55 Family history of kidney disease Social History Social History (Updated 04/21/23 @ 00:08 by Evie Riddle PA-C) Social History: Patient has been had acute rehab since her arterial stent placement in October 2022. She plan
[2023-04-21] VITALS (16 sets, daily range): BP systolic 142–176; BP diastolic 64–98; PULSE 68–88; RESP 14–20; TEMP 36.3–37; O2SAT 96–99; BMI 25.2
--- NOTE | 2023-04-21 01:07 | ADMGEN ---
This patient, Elizabeth Negron, was admitted to 3 [facility] Surg Room 323-02. Patient/family oriented to hospital policies and general routines including ID bracelet, bed and alarms, visiting hours, pain management, procedures, bathroom and other care routines, personal items, smoking policy, room service/diet, and visiting hours. Information on how to activate the Rapid Response Team has been discussed. Patient/Family are encouraged to report perceived risks to care and to ask questions if they do not understand what they are told or what they should do.
[2023-04-21] MEDS: TUBING, BLOOD PLUM PUMP TUBING 1 EACH XX (01:30)
[2023-04-21] MEDS: SODIUM CHLORIDE 0.9% IV 250 ML 30 ML IV CONT (01:30)
[2023-04-21 01:48] LABS: Glucose Point of Care 177 mg/dl (65-105)
[2023-04-21 06:32] LABS: Glucose Point of Care 213 mg/dl (65-105)
[2023-04-21] MEDS: INSULIN ASPART (*BKC) 100 UNITS/ML SUB-Q ×2 (06:43→18:08)
[2023-04-21 06:50] LABS: Hematocrit 30.5 % (37.0-47.0); Hemoglobin 9.7 g/dL (12.0-15.0); Mean Corpuscular HGB Conc 31.8 g/dl (32-36); Mean Corpuscular Hemoglobin 30.9 pg (26-34); Mean Corpuscular Volume 97.1 fl (80-100); Mean Platelet Volume 9.4 fl (7.4-10.4); Platelet Count Result 145 k/mm3 (150-375); Red Blood Count 3.14 M/mm3 (4.2-5.4); Red Cell Distribution Width 20.3 % (11.5-14.5); White Blood Count 3.8 K/mm3 (4.5-10.0)
[2023-04-21 07:01] LABS: Anion Gap 3 mmol/L (8-16); Blood Urea Nitrogen 40 mg/dL (7-17); Calcium 8.4 mg/dL (8.4-10.2); Carbon Dioxide 25 mmol/L (22-30); Chloride 110 mmol/L (98-107); Estimated CRCL calculation 27 ml/min; Estimated Glomerular Filt Rate 39; Glucose 193 mg/dL (65-110); Potassium 4.2 mmol/L (3.4-5.0); Sodium 138 mmol/L (137-145)
[2023-04-21 08:17] LABS: Glucose Point of Care 163 mg/dl (65-105)
[2023-04-21] MEDS: METOPROLOL TARTRATE 50 MG TAB PO ×2 (09:09→21:07)
[2023-04-21] MEDS: FUROSEMIDE 20 MG TABLET PO (09:09)
[2023-04-21] MEDS: EZETIMIBE 10 MG TABLET PO (09:09)
[2023-04-21] MEDS: COLCHICINE 0.6 MG TABLET PO (09:09)
[2023-04-21] MEDS: MULTIVITAMINS /C LUTEIN (CENTRUM SILVER) TABLET *BKC 1 TAB PO (09:09)
[2023-04-21] MEDS: SODIUM CHLORIDE 1 GM TABLET PO (09:09)
[2023-04-21] MEDS: MAGNESIUM OXIDE 400 MG TABLET PO (09:09)
[2023-04-21] MEDS: allopurinoL 100 MG TABLET PO (09:10)
[2023-04-21] MEDS: CALCIUM CARBONATE (OSCAL) 500 MG TABLET PO ×2 (09:12→16:05)
[2023-04-21] MEDS: FLUTICASONE PROPIONATE 0.05% NA SPR 16 GM BTL (*BKC) 1 SPRAY NASAL ×2 (09:14→16:05)
[2023-04-21] MEDS: PARoxetine 10 MG TABLET PO (09:14)
--- NOTE | 2023-04-21 10:42 | PM.IMPN ---
Progress Note: A&P Assessment and Plan (1) Acute blood loss anemia: Code(s): D62 - Acute posthemorrhagic anemia Status: Acute (2) GI bleed: Code(s): K92.2 - Gastrointestinal hemorrhage, unspecified Status: Acute (3) Chronic kidney disease, stage 3: Code(s): N18.30 - Chronic kidney disease, stage 3 unspecified Status: Acute (4) Type 2 diabetes mellitus: Code(s): E11.9 - Type 2 diabetes mellitus without complications Status: Acute (5) Peripheral vascular disease: Code(s): I73.9 - Peripheral vascular disease, unspecified Status: Acute (6) Diastolic congestive heart failure: Code(s): I50.30 - Unspecified diastolic (congestive) heart failure Status: Acute Plan The patient presented to the emergency department for evaluation of bloody stools as detailed in the HPI. Labs, imaging, EKG, and all reports were personally reviewed. Initially she was passing bright red blood per rectum but now her stools are more maroon in color. She was hospitalized in December of this year with an upper GI bleed at which time her clopidogrel was stopped and she was placed on aspirin 81 mg only. She was initially on dual antiplatelet therapy for left femoral artery stent placed in November 2022. Hemoglobin today is 2 g lower than what she was a couple of months ago. She will be transfused to a stable hemoglobin. Keep NPO after midnight for possible endoscopy tomorrow. GI has been consulted and their input is appreciated. Aspirin is on hold. Her creatinine is up a bit from baseline, possibly related to hypoperfusion from her anemia. She does not look overtly dehydrated. Repeat renal function in a.m.. Avoid nephrotoxic agents for now. She does not look overtly volume overloaded; she reports that her edema is chronic and stable. Initiate sliding scale insulin, Accu-Cheks, and hypoglycemic protocol. Her home medications will be reviewed and resumed as appropriate. Subjective Date/time seen: 04/21/23 10:42 Interval history: No complaints Exam Narrative: General:?Well-developed, nontoxic-appearing female sitting up in bed. Weight: 72 kg. BMI: 24.9. HEENT:??PERRL, EOMI. Slightly hard of hearing. Sclera anicteric. Tacky mucous membranes. Neck:??Supple. Respiratory:?Lungs are clear to auscultation bilaterally. Cardiovascular:??Regular rate and rhythm with S1-S2.? Murmur at the upper sternal border. Gastrointestinal:??Abdomen is soft, nontender, and nondistended with positive bowel sounds. Skin:??Warm and dry. Generalized pallor. Extremities:??No cyanosis or clubbing. 1+ pretibial edema bilaterally. Radial and pedal pulses intact. Neurological:??Alert.? Cranial nerves 2-12 are grossly intact. No gross focal deficits to casual conversation. Psychiatric:??Pleasant and cooperative with normal mood and affect.? Judgment and insight intact. Objective Data Vital Signs Vital Signs: Vital Signs - 24 hr 04/20/23 17:31 04/20/23 18:43 04/20/23 19:01 Temperature 97.8 F 97.4 F L Pulse Rate 81 73 72 Respiratory Rate 16 20 18 Blood Pressure 145/36 H 146/71 H 163/57 H Pulse Oximetry 100 97 98 Oxygen Delivery Room Air 04/20/23 19:16 04/20/23 20:16 04/20/23 20:38 Temperature 97.6 F 97.4 F L Pulse Rate 72 76 79 Respiratory Rate 16 18 22 H Blood Pressure 138/78 149/58 H 119/90 Pulse Oximetry 98 98 100 Oxygen Delivery 04/20/23 21:16 04/20/23 22:16 04/20/23 22:48 Temperature 97.8 F 98.5 F Pulse Rate 73 69 70 Respiratory Rate 18 13 15 Blood Pressure 148/60 H 129/61 142/70 H Pulse Oximetry 98 99 99 Oxygen Delivery 04/20/23 22:00 04/21/23 00:50 04/21/23 00:46 Temperature 98.2 F 97.8 F 97.8 F Pulse Rate 72 77 77 Respiratory Rate 19 20 20 Blood Pressure 143/66 H 167/80 H 167/80 H Pulse Oximetry 97 96 96 Oxygen Delivery 04/21/23 01:06 04/21/23 01:55 04/21/23 02:06 Temperature 98.6 F 97.5 F L Pulse Rate 76 69 Respiratory Rate 16 14 Blood Pressure 165/68 H 176/67 H P
--- NOTE | 2023-04-21 12:00 | WPDGICN ---
Assessment and Plan Assessment and plan (1) Acute GI bleeding: Code(s): K92.2 - Gastrointestinal hemorrhage, unspecified Status: Acute Assessment and Plan: EGD few months ago showed large hiatal hernia with graham ulcers here with hematochezia and drop in h/h, required blood transfusion- ? diverticular bleed (2) Hematochezia: Code(s): K92.1 - Melena Status: Acute Assessment and Plan: colonoscopy tomorrow, she is agreeable (3) Acute on chronic blood loss anemia: Code(s): D62 - Acute posthemorrhagic anemia Status: Acute Assessment and Plan: monitor for more signs of bleeding keep Hgb>7 (4) Graham lesion, acute: Onset Date: 12/2022 Code(s): K25.3 - Acute gastric ulcer without hemorrhage or perforation Status: Acute Assessment and Plan: will repeat egd in am she has large hiatal hernia denies n/v (5) Acute on chronic renal failure: Code(s): N17.9 - Acute kidney failure, unspecified; N18.9 - Chronic kidney disease, unspecified Status: Acute Assessment and Plan: monitor improved GI Consult Note Consult date/time: 04/21/23 12:00 Reason for consult: gib, hematochezia HPI: Elizabeth Negron is a 87 year old female with?peripheral vascular disease status post left femoral stent previously on clopidogrel now only on aspirin 81 mg daily. She was admitted in December 2022 because UGIB, EGD showed gastritis and Graham lesions but no active bleeding. Also history of hypertension, dyslipidemia, type 2 diabetes mellitus, chronic kidney disease, and diastolic congestive heart failure. She came here from local [facility] for evaluation of bloody stools. The patient provides the following history that started 2 weeks ago, initially small amount but progressively more and last 2 days stools have been darker maroon in color. Hgb 6.9 and given blood transfusion. Also had rlq pain. Creat 1.8 (baseline 1.2). CT scan a/p reviewed, ?Status post right partial colectomy, Diverticulosis of the sigmoid colon; no CT evidence of diverticulitis, Cholelithiasis, gallbladder wall thickening. Large sliding hiatal hernia Review of Systems Constitutional: Constitutional: Denies chills Eyes: Eyes: Denies blurry vision ENT: Reports Normal hearing present Cardiovascular: Cardiovascular: Denies chest pain Respiratory: Respiratory: Denies cough Gastrointestinal: Gastrointestinal: Reports abdominal pain and Reports hematochezia Genitourinary: Genitourinary: Denies urinary urgency Musculoskeletal: Musculoskeletal: Reports back pain Integumentary/Breasts: Skin/Breast: Denies rash Neurologic: Denies Abnormal speech present Psychiatric: Psychiatric: Denies confusion [facility] Past Medical History Medical History (Updated 04/21/23 @ 12:05 by Emiliano Shipman MD) Acute on chronic blood loss anemia Acute on chronic renal failure Anemia History of blood transfusions. Aortic valve stenosis Dqrj-xv-wsmivkiu aortic valve stenosis on echocardiogram in April 2021 with a valve area of 1.1 to 1.5 centimeter squared. Arthritis Graham lesion, acute (12/2022) Chronic kidney disease, stage 3 Depression Diabetic peripheral neuropathy Diastolic congestive heart failure Echocardiogram on 12/13/2020 showed normal left ventricular size with moderate consent of left ventricular hypertrophy with overall good left ventricular systolic function with an EF measuring 62%. There was hypokinesis of the basal inferoseptal segment as well as grade 1 diastolic dysfunction with moderately enlarged left atrial chamber and atrial septal aneurysm. Diverticulitis Dysuria Fracture of proximal end of right humerus (07/24/19) Conservative management Gastroesophageal reflux GI bleed Hearing loss, bilateral Hematochezia History of rectal polyps Hyperlipidemia Hypertension Paroxysmal atrial fibrillation Peripheral vascular disease Primary osteoarthritis of both k
[2023-04-21 12:12] LABS: Glucose Point of Care 188 mg/dl (65-105)
[2023-04-21] MEDS: polyethylene glycoL 3350 238 GM BOTTLE PO (16:05)
[2023-04-21] MEDS: BISACODYL 5 MG TABLET EC 20 MG PO (16:05)
[2023-04-21 17:44] LABS: Glucose Point of Care 210 mg/dl (65-105)
[2023-04-21] MEDS: ACETAMINOPHEN 500 MG TABLET PO (21:06)
[2023-04-21] MEDS: SIMVASTATIN 20 MG TABLET 40 MG PO (21:07)
[2023-04-21] MEDS: MIRTAZAPINE 15 MG TABLET PO (21:07)
[2023-04-21 22:51] LABS: Glucose Point of Care 193 mg/dl (65-105)
[2023-04-22] VITALS (13 sets, daily range): BP systolic 128–180; BP diastolic 63–82; PULSE 63–84; RESP 14–20; TEMP 35.8–36.3; O2SAT 94–100
[2023-04-22] MEDS: MAGNESIUM CITRATE 300 ML BTL PO (02:21)
[2023-04-22 07:01] LABS: Glucose Point of Care 217 mg/dl (65-105)
[2023-04-22 07:59] LABS: Glucose Point of Care 215 mg/dl (65-105)
[2023-04-22] MEDS: INSULIN ASPART (*BKC) 100 UNITS/ML SUB-Q ×3 (08:09→22:11)
[2023-04-22] MEDS: PARoxetine 10 MG TABLET PO (08:09)
[2023-04-22] MEDS: METOPROLOL TARTRATE 50 MG TAB PO ×2 (08:09→20:55)
[2023-04-22] MEDS: FLUTICASONE PROPIONATE 0.05% NA SPR 16 GM BTL (*BKC) 1 SPRAY NASAL ×2 (08:09→17:52)
[2023-04-22] MEDS: SELENIUM SULFIDE 1% SHAMPOO 207 ML 1 APPLIC TOPICAL (08:09)
[2023-04-22] MEDS: COLCHICINE 0.6 MG TABLET PO (08:10)
[2023-04-22 09:20] LABS: Basophils Absolute Auto 0.1 K/mm3 (0.0-0.1); Basophils Percent Auto 1.4 % (0.2-1.2); Eosinophils Absolute Auto 0.2 K/mm3 (0-0.3); Eosinophils Percent Auto 6.8 % (0-4.4); Hemoglobin 9.5 g/dL (12.0-15.0); Immature Granulocyte Absolute 0.01 K/mm3 (0.00-0.031); Immature Granulocyte Percent A 0.3 % (0-0.5); Lymphocytes Absolute Auto 0.66 K/mm3 (0.9-3.2); Lymphocytes Percent Auto 18.8 % (18.3-44.2); Mean Corpuscular HGB Conc 30.6 g/dl (32-36); Mean Corpuscular Hemoglobin 30.5 pg (26-34); Mean Corpuscular Volume 99.7 fl (80-100); Mean Platelet Volume 9.4 fl (7.4-10.4); Monocytes Absolute Auto 0.2 K/mm3 (0.1-0.6); Monocytes Percent Auto 6.3 % (2.6-8.5); Neutrophils Absolute Auto 2.3 K/mm3 (1.3-6.7); Neutrophils Percent Auto 66.4 % (45.5-73.1); Platelet Count Result 150 k/mm3 (150-375); Red Blood Count 3.11 M/mm3 (4.2-5.4); Red Cell Distribution Width 19.5 % (11.5-14.5); White Blood Count 3.5 K/mm3 (4.5-10.0)
--- NOTE | 2023-04-22 11:02 | P.CDI_ITS ---
acute diastolic CDI Query Clarification Request Documented history of CHF. CHF noted in the assessment and plan. Lasix listed as a home medication. Patient receiving Lasix. Please specify type and acuity of heart failure if known. * Acute * Chronic * Acute on Chronic * Unknown * Systolic * Diastolic * Combined Systolic and Diastolic * Unknown
--- NOTE | 2023-04-22 11:02 | WPDCDIQUERY2 ---
CDI Query Clarification Request Documented history of CHF. CHF noted in the assessment and plan. Lasix listed as a home medication. Patient receiving Lasix. Please specify type and acuity of heart failure if known. Acute Chronic Acute on Chronic Unknown Systolic Diastolic Combined Systolic and Diastolic Unknown
--- NOTE | 2023-04-22 11:09 | PM.IMPN ---
Progress Note: A&P Assessment and Plan (1) Acute blood loss anemia: Code(s): D62 - Acute posthemorrhagic anemia Status: Acute (2) GI bleed: Code(s): K92.2 - Gastrointestinal hemorrhage, unspecified Status: Acute Assessment and Plan: Plan for scope today. Await GI evaluation and results of colonoscopy (3) Chronic kidney disease, stage 3: Code(s): N18.30 - Chronic kidney disease, stage 3 unspecified Status: Acute (4) Type 2 diabetes mellitus: Code(s): E11.9 - Type 2 diabetes mellitus without complications Status: Acute (5) Peripheral vascular disease: Code(s): I73.9 - Peripheral vascular disease, unspecified Status: Acute (6) Diastolic congestive heart failure: Code(s): I50.30 - Unspecified diastolic (congestive) heart failure Status: Acute Subjective Date/time seen: 04/22/23 11:09 Interval history: No complaints Exam Narrative: General:?Well-developed, nontoxic-appearing female sitting up in bed. Weight: 72 kg. BMI: 24.9. HEENT:??PERRL, EOMI. Slightly hard of hearing. Sclera anicteric. Tacky mucous membranes. Neck:??Supple. Respiratory:?Lungs are clear to auscultation bilaterally. Cardiovascular:??Regular rate and rhythm with S1-S2.? Murmur at the upper sternal border. Gastrointestinal:??Abdomen is soft, nontender, and nondistended with positive bowel sounds. Skin:??Warm and dry. Generalized pallor. Extremities:??No cyanosis or clubbing. 1+ pretibial edema bilaterally. Radial and pedal pulses intact. Neurological:??Alert.? Cranial nerves 2-12 are grossly intact. No gross focal deficits to casual conversation. Psychiatric:??Pleasant and cooperative with normal mood and affect.? Judgment and insight intact. Objective Data Vital Signs Vital Signs: Vital Signs - 24 hr 04/21/23 12:00 04/21/23 16:00 04/21/23 14:00 Temperature 97.3 F L Pulse Rate 74 78 79 Respiratory Rate 20 Blood Pressure 153/72 H Pulse Oximetry 99 Oxygen Delivery 04/21/23 21:07 04/21/23 22:00 04/21/23 20:00 Temperature 97.3 F L Pulse Rate 80 85 Respiratory Rate 16 Blood Pressure 151/73 H Pulse Oximetry 98 Oxygen Delivery Room Air 04/21/23 20:00 04/22/23 00:00 04/22/23 04:00 Temperature Pulse Rate 80 84 79 Respiratory Rate Blood Pressure Pulse Oximetry Oxygen Delivery 04/22/23 06:00 04/22/23 08:00 Temperature 96.4 F L Pulse Rate 68 Respiratory Rate 14 Blood Pressure 164/63 H Pulse Oximetry 98 Oxygen Delivery Room Air Intake/Output Intake/Output: Intake & Output 04/19/23 04/20/23 04/21/23 04/22/23 23:59 23:59 23:59 23:59 Intake Total 350 3140 300 Output Total 200 Balance 350 2940 300 Meds/Results Medications: Active Medications Generic Name Dose Route Start Last Admin Trade Name Freq PRN Reason Stop Dose Admin Acetaminophen 500 mg 04/21/23 08:08 04/21/23 21:06 Acetaminophen 500 Mg Tablet PO 500 mg Q6H PRN Administration Pain (Scale Score 1-3) Allopurinol 100 mg 04/21/23 09:00 04/22/23 08:06 Allopurinol 100 Mg Tablet PO Not Given DAILY MELANIE Bisacodyl 10 mg 04/21/23 08:08 Bisacodyl 10 Mg Suppository RECTAL DAILY PRN Constipation Calcium Carbonate 500 mg 04/21/23 08:00 04/22/23 08:06 Calcium Carbonate (Oscal) 500 Mg Tablet PO Not Given BIDWM MELANIE Colchicine 0.6 mg 04/21/23 09:00 04/22/23 08:10 Colchicine 0.6 Mg Tablet PO 0.6 mg DAILY MELANIE Administration Dextrose 12.5 gm 04/21/23 00:14 Dextrose 50% 25 Gm/50 Ml Syringe IV PUSH PRN PRN Hypoglycemia Protocol Diphenhydramine HCl 25 mg 04/21/23 08:08 Diphenhydramine Hcl Cap 25 Mg Capsule PO Q8H PRN Itching Docusate Sodium 100 mg 04/21/23 08:08 Docusate Sodium 100 Mg Capsule PO DAILY PRN constipation Ezetimibe 10 mg 04/21/23 09:00 04/22/23 08:07 Ezetimibe 10 Mg Tablet PO Not Given DAILY SC
[2023-04-22 11:30] LABS: Glucose Point of Care 156 mg/dl (65-105)
--- NOTE | 2023-04-22 11:33 | PC.NURSE ---
Pt to GI lab via stretcher at 11:10.
[2023-04-22] MEDS: LACTATED RINGERS 1,000 ML 150 ML IV CONT (11:40)
--- NOTE | 2023-04-22 12:07 | WPDANESEPPF ---
Anes - Initial Pre Proc Eval Procedure: Operation Date: 04/22/23 13:45 Proposed Procedures p Esophagogastroduodenoscopy & Colonoscopy - Emiliano Shipman MD Date/Time: 04/22/23 12:07 Surgeon: Dwayne Benavides MD Pre Op Diagnosis: GI Bleed Patient Data Age: 87 Gender: F Height: 1.7 m Weight: 78.1 kg Last Vital Signs Temp 96.8 F L 04/22/23 11:30 Pulse 71 04/22/23 11:30 Resp 18 04/22/23 11:30 BP 156/75 H 04/22/23 11:30 Pulse Ox 100 04/22/23 11:30 O2 Del Method Room Air 04/22/23 11:30 Allergies Allergy/AdvReac Type Severity Reaction Status Date / Time influenza A (H1N1) virus Allergy Unknown Swelling Verified 04/22/23 11:32 vaccine [id number] 2008 of Lip/Tongue/Throat Influenza Virus Vaccines Allergy Unknown Swelling Verified 04/22/23 11:32 of Lip/Tongue/Throat phenobarbital AdvReac Mild Hallucinati Verified 04/22/23 11:32 ng Home Medications Medication Instructions Recorded Confirmed Type magnesium oxide 400 mg (241.3 mg 400 mg PO QAM 30 days #30 tabs 09/03/19 04/22/23 Rx magnesium) tablet simvastatin 40 mg tablet 40 mg PO HS 12/12/20 04/22/23 History calcium carbonate 600 mg calcium 600 mg PO BID 04/15/22 04/22/23 History (1,500 mg) tablet ezetimibe 10 mg tablet 10 mg PO DAILY #90 tabs 04/23/22 04/22/23 Rx aspirin 81 mg tablet,delayed 81 mg PO DAILY 08/11/22 04/22/23 History release ferrous sulfate 325 mg (65 mg 325 mg PO HS 08/11/22 04/22/23 History iron) capsule,extended release meclizine 12.5 mg tablet 12.5 mg PO Q12H PRN dizziness #180 09/17/22 04/22/23 Rx tabs docusate sodium 100 mg capsule 100 mg PO DAILY PRN constipation 09/23/22 04/22/23 Rx (Colace) #90 caps furosemide 20 mg tablet 20 mg PO QAM #90 tabs 11/02/22 04/22/23 Rx empagliflozin 10 mg tablet 25 mg PO DAILY 11/15/22 04/22/23 History (Jardiance) sitagliptin phosphate 100 mg 100 mg PO DAILY 11/15/22 04/22/23 History tablet (Januvia) allopurinol 100 mg tablet 100 mg PO DAILY #90 tabs 11/30/22 04/22/23 Rx ketoconazole 2 % shampoo 1 applic topical 3XW #120 mL 11/30/22 04/22/23 Rx trazodone 50 mg tablet 25 mg PO QHS PRN insomnia #45 tabs 11/30/22 04/22/23 Rx paroxetine HCl 10 mg tablet 10 mg PO DAILY #90 tabs 12/02/22 04/22/23 Rx clopidogrel 75 mg tablet 75 mg PO DAILY 12/24/22 04/22/23 History colchicine (gout) 0.6 mg tablet 0.6 mg PO DAILY 12/24/22 04/22/23 History metoprolol tartrate 50 mg tablet 50 mg PO Q12HR 1 month #60 tabs 12/29/22 04/22/23 Rx sodium chloride 1,000 mg soluble 1,000 mg PO DAILY 1 month #30 tabs 12/29/22 04/22/23 Rx tablet bisacodyl 10 mg rectal suppository 10 mg RECTAL DAILY PRN Constipation 01/08/23 04/22/23 History cholecalciferol (vitamin D3) 1,250 1,250 mcg PO WEEKLY 01/08/23 04/22/23 History mcg (50,000 unit) capsule magnesium citrate 300 ml PO DAILY PRN Constipation 01/08/23 04/22/23 History magnesium hydroxide 400 mg/5 mL 400 mg PO HS PRN Constipation 01/08/23 04/22/23 History oral suspension (Milk of Magnesia) mirtazapine 15 mg tablet 15 mg PO HS 01/08/23 04/22/23 History insulin lispro 100 unit/mL 8 unit (0.08 mL) subcut TID #10 mL 03/03/23 04/22/23 Rx subcutaneous solution blood sugar diagnostic (OneTouch #100 ea 03/25/23 04/22/23 Rx Verio test strips) pen needle, diabetic, safety 30 #100 ea 03/25/23 04/22/23 Rx gauge x 1/3 (Novofine Autocover) diphenhydramine HCl 25 mg tablet 25 mg PO Q8H PRN Itching #30 tabs 03/29/23 04/22/23 Rx acetaminophen 500 mg capsule 500 mg PO Q6H PRN Pain (Scale 04/21/23 04/22/23 History Score 1-3) fluticasone propionate 50 1 spray intranasal BID 04/21/23 04/22/23 History mcg/actuation nasal spray,suspension insulin glargine 100 unit/mL 20 unit subcut HS 04/21/23 04/22/23 History subcutaneous solution (Lantus U-100 Insulin) multivitamin with minerals-folic 1 tablet PO DAILY 04/21/23 04/22/23 History acid 12 mcg chewable tablet (Centrum Adults) nystatin 100,0
--- NOTE | 2023-04-22 13:08 | SUR.OPER ---
egd ended at 1259, colonoscopy started at 1303
[2023-04-22] MEDS: CALCIUM CARBONATE (OSCAL) 500 MG TABLET PO (17:52)
[2023-04-22 18:06] LABS: Glucose Point of Care 326 mg/dl (65-105)
[2023-04-22] MEDS: SIMVASTATIN 20 MG TABLET 40 MG PO (20:55)
[2023-04-22] MEDS: MIRTAZAPINE 15 MG TABLET PO (20:55)
[2023-04-22 22:10] LABS: Glucose Point of Care 217 mg/dl (65-105)
[2023-04-23] VITALS (8 sets, daily range): BP systolic 140–147; BP diastolic 54–69; PULSE 66–81; RESP 14–20; TEMP 35.9–36.6; O2SAT 94–98
[2023-04-23] MEDS: ACETAMINOPHEN 500 MG TABLET PO ×2 (02:15→21:02)
[2023-04-23 06:29] LABS: Basophils Percent Auto 0.6 % (0.2-1.2); Eosinophils Absolute Auto 0.2 K/mm3 (0-0.3); Eosinophils Percent Auto 4.3 % (0-4.4); Hematocrit 29.4 % (37.0-47.0); Hemoglobin 9.1 g/dL (12.0-15.0); Immature Granulocyte Absolute 0.01 K/mm3 (0.00-0.031); Immature Granulocyte Percent A 0.2 % (0-0.5); Lymphocytes Absolute Auto 1.01 K/mm3 (0.9-3.2); Lymphocytes Percent Auto 21.5 % (18.3-44.2); Mean Corpuscular Hemoglobin 30.1 pg (26-34); Mean Corpuscular Volume 97.4 fl (80-100); Mean Platelet Volume 9.2 fl (7.4-10.4); Monocytes Absolute Auto 0.3 K/mm3 (0.1-0.6); Monocytes Percent Auto 7.2 % (2.6-8.5); Neutrophils Absolute Auto 3.1 K/mm3 (1.3-6.7); Neutrophils Percent Auto 66.2 % (45.5-73.1); Platelet Count Result 145 k/mm3 (150-375); Red Blood Count 3.02 M/mm3 (4.2-5.4); Red Cell Distribution Width 18.1 % (11.5-14.5); White Blood Count 4.7 K/mm3 (4.5-10.0)
[2023-04-23 06:42] LABS: Anion Gap 4 mmol/L (8-16); Blood Urea Nitrogen 32 mg/dL (7-17); Calcium 8.3 mg/dL (8.4-10.2); Carbon Dioxide 25 mmol/L (22-30); Chloride 107 mmol/L (98-107); Estimated CRCL calculation 35 ml/min; Estimated Glomerular Filt Rate 53; Glucose 209 mg/dL (65-110); Potassium 4.4 mmol/L (3.4-5.0); Sodium 136 mmol/L (137-145)
[2023-04-23 08:08] LABS: Glucose Point of Care 214 mg/dl (65-105)
[2023-04-23] MEDS: INSULIN ASPART (*BKC) 100 UNITS/ML SUB-Q ×4 (08:54→21:59)
[2023-04-23] MEDS: METOPROLOL TARTRATE 50 MG TAB PO ×2 (08:55→21:01)
[2023-04-23] MEDS: MAGNESIUM OXIDE 400 MG TABLET PO (08:55)
[2023-04-23] MEDS: PANTOPRAZOLE 40 MG TABLET PO (08:55)
[2023-04-23] MEDS: MULTIVITAMINS /C LUTEIN (CENTRUM SILVER) TABLET *BKC 1 TAB PO (08:55)
[2023-04-23] MEDS: FUROSEMIDE 20 MG TABLET PO (08:55)
[2023-04-23] MEDS: EZETIMIBE 10 MG TABLET PO (08:55)
[2023-04-23] MEDS: SODIUM CHLORIDE 1 GM TABLET PO (08:55)
[2023-04-23] MEDS: allopurinoL 100 MG TABLET PO (08:55)
[2023-04-23] MEDS: CALCIUM CARBONATE (OSCAL) 500 MG TABLET PO ×2 (08:55→16:50)
[2023-04-23] MEDS: FLUTICASONE PROPIONATE 0.05% NA SPR 16 GM BTL (*BKC) 1 SPRAY NASAL ×2 (08:55→16:50)
[2023-04-23] MEDS: COLCHICINE 0.6 MG TABLET PO (08:55)
[2023-04-23] MEDS: PARoxetine 10 MG TABLET PO (08:55)
--- NOTE | 2023-04-23 11:25 | WPDGIPROGNO ---
Progress Note: A&P Assessment and Plan (1) AVM (arteriovenous malformation) of colon with hemorrhage: Code(s): K55.21 - Angiodysplasia of colon with hemorrhage Status: Acute Assessment and Plan: this was cause of bleeding, treated successfully with apc yesterday no more bleeding and stable h/h home soon (2) Acute on chronic blood loss anemia: Code(s): D62 - Acute posthemorrhagic anemia Status: Acute Assessment and Plan: stable after transfusion (3) Hematochezia: Code(s): K92.1 - Melena Status: Acute Assessment and Plan: resolved (4) Peripheral vascular disease: Code(s): I73.9 - Peripheral vascular disease, unspecified Status: Acute (5) Type 2 diabetes mellitus with diabetic chronic kidney disease: Qualifiers: Diabetes mellitus intermediate insulin use: with intermediate use Chronic kidney disease stage: stage 3 (moderate) Chronic kidney disease stage 3 subtype: stage 3b (GFR 30-44) Qualified Code(s): E11.22 - Type 2 diabetes mellitus with diabetic chronic kidney disease; N18.32 - Chronic kidney disease, stage 3b; Z79.4 - [facility] (current) use of insulin Code(s): E11.22 - Type 2 diabetes mellitus with diabetic chronic kidney disease Status: Acute (6) Hiatal hernia with GERD: Code(s): K44.9 - Diaphragmatic hernia without obstruction or gangrene; K21.9 - Gastro-esophageal reflux disease without esophagitis Status: Acute Assessment and Plan: egd without signs of bleeding known large hiatal hernia Subjective Date/time seen: 04/23/23 11:26 Interval history: yesterday had bleeding AVM in right colon treated with apc no more bleeding since and doing ok Review of Systems Review of Systems: All systems reviewed & are unremarkable except as noted in HPI and below Exam Const: General: comfortable and no acute distress Other: pleasant elderly HENMT: Face/Nose/Sinus: Normal nares present Eyes: General: appearance normal, both eyes and all related structures Neck: Neck: supple Resp: Auscultation: clear to auscultation bilaterally Cardio: Rate: regular rate Rhythm: regular rhythm GI: Inspection: non-distended GI Palp: Yes Soft to palpation and No Tenderness to palpation present (GI) Auscultation: normal bowel sounds Skin: General skin exam: normal color Neuro: Speech: normal speech Motor exam (neuro): 5/5 motor strength present throughout Extrem: General: normal to inspection Psych: Mental Status: mental status grossly normal Objective Data Vital Signs Vital Signs: Vital Signs - 24 hr 04/22/23 11:30 04/22/23 13:35 04/22/23 13:45 Temperature 96.8 F L Pulse Rate 71 68 70 Respiratory Rate 18 20 20 Blood Pressure 156/75 H 128/66 162/71 H Pulse Oximetry 100 96 97 Oxygen Delivery Room Air Room Air Room Air 04/22/23 13:55 04/22/23 14:00 04/22/23 16:00 Temperature 97.4 F L Pulse Rate 68 64 68 Respiratory Rate 20 16 Blood Pressure 164/82 H 180/66 H Pulse Oximetry 98 100 Oxygen Delivery Room Air 04/22/23 20:55 04/22/23 20:00 04/22/23 22:00 Temperature 97.3 F L Pulse Rate 73 76 Respiratory Rate 18 Blood Pressure 158/80 H Pulse Oximetry 94 Oxygen Delivery Room Air 04/22/23 20:00 04/23/23 00:00 04/23/23 04:00 Temperature Pulse Rate 82 81 74 Respiratory Rate Blood Pressure Pulse Oximetry Oxygen Delivery 04/23/23 06:00 Temperature 97.1 F L Pulse Rate 79 Respiratory Rate 14 Blood Pressure 140/54 L Pulse Oximetry 94 Oxygen Delivery Intake/Output Intake/Output: Intake & Output 04/20/23 04/21/23 04/22/23 04/23/23 23:59 23:59 23:59 23:59 Intake Total 350 3140 872 658 Output Total 200 Balance 350 2940 872 658 Meds/Results Medications: Active Medications Generic Name Dose Route Start Last Admin Trade Name Freq PRN Reason Stop Dose Admin Acetaminophen 500 mg 04/21/23 08:08 04/23/23 02:15 Acetamino
--- NOTE | 2023-04-23 11:29 | PM.IMPN ---
Progress Note: A&P Assessment and Plan (1) Acute blood loss anemia: Code(s): D62 - Acute posthemorrhagic anemia Status: Acute (2) GI bleed: Code(s): K92.2 - Gastrointestinal hemorrhage, unspecified Status: Acute Assessment and Plan: Scope results noted. Trend hemoglobin 1 more day then patient likely be discharged tomorrow. (3) Chronic kidney disease, stage 3: Code(s): N18.30 - Chronic kidney disease, stage 3 unspecified Status: Acute (4) Type 2 diabetes mellitus: Code(s): E11.9 - Type 2 diabetes mellitus without complications Status: Acute (5) Peripheral vascular disease: Code(s): I73.9 - Peripheral vascular disease, unspecified Status: Acute (6) Diastolic congestive heart failure: Code(s): I50.30 - Unspecified diastolic (congestive) heart failure Status: Acute Subjective Date/time seen: 04/23/23 11:29 Interval history: No complaints Exam Narrative: General:?Well-developed, nontoxic-appearing female sitting up in bed. Weight: 72 kg. BMI: 24.9. HEENT:??PERRL, EOMI. Slightly hard of hearing. Sclera anicteric. Tacky mucous membranes. Neck:??Supple. Respiratory:?Lungs are clear to auscultation bilaterally. Cardiovascular:??Regular rate and rhythm with S1-S2.? Murmur at the upper sternal border. Gastrointestinal:??Abdomen is soft, nontender, and nondistended with positive bowel sounds. Skin:??Warm and dry. Generalized pallor. Extremities:??No cyanosis or clubbing. 1+ pretibial edema bilaterally. Radial and pedal pulses intact. Neurological:??Alert.? Cranial nerves 2-12 are grossly intact. No gross focal deficits to casual conversation. Psychiatric:??Pleasant and cooperative with normal mood and affect.? Judgment and insight intact. Objective Data Vital Signs Vital Signs: Vital Signs - 24 hr 04/22/23 11:30 04/22/23 13:35 04/22/23 13:45 Temperature 96.8 F L Pulse Rate 71 68 70 Respiratory Rate 18 20 20 Blood Pressure 156/75 H 128/66 162/71 H Pulse Oximetry 100 96 97 Oxygen Delivery Room Air Room Air Room Air 04/22/23 13:55 04/22/23 14:00 04/22/23 16:00 Temperature 97.4 F L Pulse Rate 68 64 68 Respiratory Rate 20 16 Blood Pressure 164/82 H 180/66 H Pulse Oximetry 98 100 Oxygen Delivery Room Air 04/22/23 20:55 04/22/23 20:00 04/22/23 22:00 Temperature 97.3 F L Pulse Rate 73 76 Respiratory Rate 18 Blood Pressure 158/80 H Pulse Oximetry 94 Oxygen Delivery Room Air 04/22/23 20:00 04/23/23 00:00 04/23/23 04:00 Temperature Pulse Rate 82 81 74 Respiratory Rate Blood Pressure Pulse Oximetry Oxygen Delivery 04/23/23 06:00 Temperature 97.1 F L Pulse Rate 79 Respiratory Rate 14 Blood Pressure 140/54 L Pulse Oximetry 94 Oxygen Delivery Intake/Output Intake/Output: Intake & Output 04/20/23 04/21/23 04/22/23 04/23/23 23:59 23:59 23:59 23:59 Intake Total 350 3140 872 658 Output Total 200 Balance 350 2940 872 658 Meds/Results Medications: Active Medications Generic Name Dose Route Start Last Admin Trade Name Freq PRN Reason Stop Dose Admin Acetaminophen 500 mg 04/21/23 08:08 04/23/23 02:15 Acetaminophen 500 Mg Tablet PO 500 mg Q6H PRN Administration Pain (Scale Score 1-3) Allopurinol 100 mg 04/21/23 09:00 04/23/23 08:55 Allopurinol 100 Mg Tablet PO 100 mg DAILY MELANIE Administration Bisacodyl 10 mg 04/21/23 08:08 Bisacodyl 10 Mg Suppository RECTAL DAILY PRN Constipation Calcium Carbonate 500 mg 04/21/23 08:00 04/23/23 08:55 Calcium Carbonate (Oscal) 500 Mg Tablet PO 500 mg BIDWM MELANIE Administration Colchicine 0.6 mg 04/21/23 09:00 04/23/23 08:55 Colchicine 0.6 Mg Tablet PO 0.6 mg DAILY MELANIE Administration Dextrose 12.5 gm 04/21/23 00:14 Dextrose 50% 25 Gm/50 Ml Syringe IV PUSH PRN PRN Hypoglycemia Protocol Diphenhydramine HCl 25 mg 04/21/23 08:08 Diphenhy
[2023-04-23 12:05] LABS: Glucose Point of Care 281 mg/dl (65-105)
--- NOTE | 2023-04-23 13:57 | WPDANESPN ---
Anes - Prog Note Post-Op Date/Time: 04/23/23 13:57 Cardiovascular status: normal Respiratory status: normal Airway patency: baseline Mental status: baseline Post-Op hydration status: normal Vital Signs: Last Vital Signs Temp 97.1 F L 04/23/23 06:00 Pulse 66 04/23/23 08:00 Resp 14 04/23/23 06:00 BP 140/54 L 04/23/23 06:00 Pulse Ox 95 04/23/23 13:03 O2 Del Method Room Air 04/23/23 13:03 Pain Score (VAS): 0 I/O: Intake & Output 04/22/23 04/23/23 04/23/23 23:59 07:59 15:59 Intake Total 236 300 358 Balance 236 300 358 Laboratory Tests 04/23/23 05:48 04/23/23 05:48 04/22/23 04/22/23 04/23/23 18:03 22:01 05:48 WBC 4.7 RBC 3.02 L Hgb 9.1 L Hct 29.4 L MCV 97.4 MCH 30.1 MCHC 31.0 L RDW 18.1 H Plt Count 145 L MPV 9.2 Immature Gran % (Auto) 0.2 Neut % (Auto) 66.2 Lymph % (Auto) 21.5 [place] % (Auto) 7.2 Eos % (Auto) 4.3 Baso % (Auto) 0.6 Lymph # (Auto) 1.01 [place] # (Auto) 0.3 Eos # (Auto) 0.2 Baso # (Auto) 0.0 Abs Immat Gran (auto) 0.01 Absolute Neuts (auto) 3.1 Absolute Nucleated RBC 0.0 Nucleated RBC % 0.0 Sodium 136 L Potassium 4.4 Chloride 107 Carbon Dioxide 25 Anion Gap 4 L BUN 32 H Creatinine 1.00 Estim Creat Clear Calc 35 Estimated GFR 53 L Glucose 209 H POC Capillary Glucose 326 H 217 H Calcium 8.3 L 04/23/23 04/23/23 07:51 11:45 WBC RBC Hgb Hct MCV MCH MCHC RDW Plt Count MPV Immature Gran % (Auto) Neut % (Auto) Lymph % (Auto) [place] % (Auto) Eos % (Auto) Baso % (Auto) Lymph # (Auto) [place] # (Auto) Eos # (Auto) Baso # (Auto) Abs Immat Gran (auto) Absolute Neuts (auto) Absolute Nucleated RBC Nucleated RBC % Sodium Potassium Chloride Carbon Dioxide Anion Gap BUN Creatinine Estim Creat Clear Calc Estimated GFR Glucose POC Capillary Glucose 214 H 281 H Calcium Post-procedural complaints: none Patient Feedback: Patient satisfied with anesthetic care.
[2023-04-23 16:44] LABS: Glucose Point of Care 217 mg/dl (65-105)
[2023-04-23] MEDS: MIRTAZAPINE 15 MG TABLET PO (21:01)
[2023-04-23] MEDS: SIMVASTATIN 20 MG TABLET 40 MG PO (21:01)
[2023-04-23 21:24] LABS: Glucose Point of Care 252 mg/dl (65-105)
[2023-04-23 23:18] LABS: Glucose Point of Care 174 mg/dl (65-105)
[2023-04-24 06:00] VITALS: BP 174/68; PULSE 63; RESP 19; TEMP 36.3; O2SAT 97
[2023-04-24 07:07] LABS: Basophils Percent Auto 1.2 % (0.2-1.2); Eosinophils Absolute Auto 0.2 K/mm3 (0-0.3); Eosinophils Percent Auto 6.7 % (0-4.4); Hematocrit 32.5 % (37.0-47.0); Hemoglobin 9.9 g/dL (12.0-15.0); Immature Granulocyte Absolute 0.01 K/mm3 (0.00-0.031); Immature Granulocyte Percent A 0.3 % (0-0.5); Lymphocytes Percent Auto 23.3 % (18.3-44.2); Mean Corpuscular HGB Conc 30.5 g/dl (32-36); Mean Corpuscular Hemoglobin 30.7 pg (26-34); Mean Corpuscular Volume 100.6 fl (80-100); Mean Platelet Volume 9.4 fl (7.4-10.4); Monocytes Absolute Auto 0.2 K/mm3 (0.1-0.6); Monocytes Percent Auto 6.1 % (2.6-8.5); Neutrophils Absolute Auto 2.2 K/mm3 (1.3-6.7); Neutrophils Percent Auto 62.4 % (45.5-73.1); Platelet Count Result 152 k/mm3 (150-375); Red Blood Count 3.23 M/mm3 (4.2-5.4); Red Cell Distribution Width 17.8 % (11.5-14.5); White Blood Count 3.4 K/mm3 (4.5-10.0)
[2023-04-24 07:54] LABS: Glucose Point of Care 221 mg/dl (65-105)
[2023-04-24 10:20] VITALS: PULSE 76
[2023-04-24] MEDS: MULTIVITAMINS /C LUTEIN (CENTRUM SILVER) TABLET *BKC 1 TAB PO (10:20)
[2023-04-24] MEDS: SODIUM CHLORIDE 1 GM TABLET PO (10:20)
[2023-04-24] MEDS: FUROSEMIDE 20 MG TABLET PO (10:20)
[2023-04-24] MEDS: PANTOPRAZOLE 40 MG TABLET PO (10:20)
[2023-04-24] MEDS: EZETIMIBE 10 MG TABLET PO (10:20)
[2023-04-24] MEDS: PARoxetine 10 MG TABLET PO (10:20)
[2023-04-24] MEDS: allopurinoL 100 MG TABLET PO (10:20)
[2023-04-24] MEDS: METOPROLOL TARTRATE 50 MG TAB PO (10:20)
[2023-04-24] MEDS: CALCIUM CARBONATE (OSCAL) 500 MG TABLET PO (10:20)
[2023-04-24] MEDS: COLCHICINE 0.6 MG TABLET PO (10:20)
[2023-04-24] MEDS: MAGNESIUM OXIDE 400 MG TABLET PO (10:20)
[2023-04-24] MEDS: FLUTICASONE PROPIONATE 0.05% NA SPR 16 GM BTL (*BKC) 1 SPRAY NASAL (10:21)
[2023-04-24] MEDS: INSULIN ASPART (*BKC) 100 UNITS/ML SUB-Q ×2 (10:23→12:21)
[2023-04-24 11:39] LABS: Glucose Point of Care 374 mg/dl (65-105)
--- NOTE | 2023-04-24 11:55 | WPDGIPROGNO ---
Progress Note: A&P Assessment and Plan (1) AVM (arteriovenous malformation) of colon with hemorrhage: Code(s): K55.21 - Angiodysplasia of colon with hemorrhage Status: Acute Assessment and Plan: this was cause of bleeding, treated successfully with apc no more bleeding and stable h/h ok to discharge ok to resume aspirin in 5 days (2) Acute on chronic blood loss anemia: Code(s): D62 - Acute posthemorrhagic anemia Status: Acute Assessment and Plan: stable after transfusion (3) Hematochezia: Code(s): K92.1 - Melena Status: Acute Assessment and Plan: resolved from colon AVM (4) Peripheral vascular disease: Code(s): I73.9 - Peripheral vascular disease, unspecified Status: Acute Assessment and Plan: resume aspirin in 5 days (5) Type 2 diabetes mellitus with diabetic chronic kidney disease: Qualifiers: Diabetes mellitus mcfp insulin use: with mcfp use Chronic kidney disease stage: stage 3 (moderate) Chronic kidney disease stage 3 subtype: stage 3b (GFR 30-44) Qualified Code(s): E11.22 - Type 2 diabetes mellitus with diabetic chronic kidney disease; N18.32 - Chronic kidney disease, stage 3b; Z79.4 - [facility] (current) use of insulin Code(s): E11.22 - Type 2 diabetes mellitus with diabetic chronic kidney disease Status: Acute (6) Hiatal hernia with GERD: Code(s): K44.9 - Diaphragmatic hernia without obstruction or gangrene; K21.9 - Gastro-esophageal reflux disease without esophagitis Status: Acute Assessment and Plan: egd without signs of bleeding known large hiatal hernia Subjective Date/time seen: 04/24/23 11:55 Interval history: no more bleeding, she is ready to leave the hospital today Review of Systems Review of Systems: All systems reviewed & are unremarkable except as noted in HPI and below Exam Const: General: comfortable and no acute distress Other: pleasant elderly HENMT: Face/Nose/Sinus: Normal nares present Eyes: General: appearance normal, both eyes and all related structures Neck: Neck: supple Resp: Auscultation: clear to auscultation bilaterally Cardio: Rate: regular rate Rhythm: regular rhythm GI: Inspection: non-distended GI Palp: Yes Soft to palpation and No Tenderness to palpation present (GI) Auscultation: normal bowel sounds Skin: General skin exam: normal color Neuro: Speech: normal speech Motor exam (neuro): 5/5 motor strength present throughout Extrem: General: normal to inspection Psych: Mental Status: mental status grossly normal Objective Data Vital Signs Vital Signs: Vital Signs - 24 hr 04/23/23 13:03 04/23/23 14:00 04/23/23 19:57 Temperature 97.8 F 96.6 F L Pulse Rate 70 68 Respiratory Rate 20 16 Blood Pressure 147/69 H 143/56 H Pulse Oximetry 95 98 97 Oxygen Delivery Room Air 04/23/23 21:01 04/23/23 20:00 04/24/23 06:00 Temperature 97.4 F L Pulse Rate 70 63 Respiratory Rate 19 Blood Pressure 174/68 H Pulse Oximetry 97 Oxygen Delivery Room Air 04/24/23 10:20 Temperature Pulse Rate 76 Respiratory Rate Blood Pressure Pulse Oximetry Oxygen Delivery Intake/Output Intake/Output: Intake & Output 04/21/23 04/22/23 04/23/23 04/24/23 23:59 23:59 23:59 23:59 Intake Total 3140 872 1316 490 Output Total 200 Balance 2940 872 1316 490 Meds/Results Medications: Active Medications Generic Name Dose Route Start Last Admin Trade Name Freq PRN Reason Stop Dose Admin Acetaminophen 500 mg 04/21/23 08:08 04/23/23 21:02 Acetaminophen 500 Mg Tablet PO 500 mg Q6H PRN Administration Pain (Scale Score 1-3) Allopurinol 100 mg 04/21/23 09:00 04/24/23 10:20 Allopurinol 100 Mg Tablet PO 100 mg DAILY MELANIE Administration Bisacodyl 10 mg 04/21/23 08:08 Bisacodyl 10 Mg Suppository RECTAL DAILY PRN Constipation Calcium Carbonate 500 mg 04/02
--- NOTE | 2023-04-24 12:00 | PM.DS ---
DS: Admitting Diagnosis Discharge Date April 24, 2023 Admitting Diagnosis GI bleed DS: Discharge Diagnosis Discharge Diagnosis (1) Acute blood loss anemia: Code(s): D62 - Acute posthemorrhagic anemia Status: Acute (2) GI bleed: Code(s): K92.2 - Gastrointestinal hemorrhage, unspecified Status: Acute Assessment and Plan: Scope results noted. Trend hemoglobin 1 more day then patient likely be discharged tomorrow. (3) Chronic kidney disease, stage 3: Code(s): N18.30 - Chronic kidney disease, stage 3 unspecified Status: Acute (4) Type 2 diabetes mellitus: Code(s): E11.9 - Type 2 diabetes mellitus without complications Status: Acute (5) Peripheral vascular disease: Code(s): I73.9 - Peripheral vascular disease, unspecified Status: Acute (6) Diastolic congestive heart failure: Code(s): I50.30 - Unspecified diastolic (congestive) heart failure Status: Acute DS: Summary Hospital Course Hospital Course: 87-year-old female came in with anemia and found have a lower GI bleed. Patient underwent EGD colonoscopy found AVM of the colon. Antiplatelets on hold for few days on discharge. Patient is on antiplatelets for peripheral vascular disease. Otherwise her hemoglobin is stable and can be discharged. Follow up with GI Time Spent with Patient Time attestation: Total time spent providing and/or coordinating discharge services: Exam Narrative: General:?Well-developed, nontoxic-appearing female sitting up in bed. Weight: 72 kg. BMI: 24.9. HEENT:??PERRL, EOMI. Slightly hard of hearing. Sclera anicteric. Tacky mucous membranes. Neck:??Supple. Respiratory:?Lungs are clear to auscultation bilaterally. Cardiovascular:??Regular rate and rhythm with S1-S2.? Murmur at the upper sternal border. Gastrointestinal:??Abdomen is soft, nontender, and nondistended with positive bowel sounds. Skin:??Warm and dry. Generalized pallor. Extremities:??No cyanosis or clubbing. 1+ pretibial edema bilaterally. Radial and pedal pulses intact. Neurological:??Alert.? Cranial nerves 2-12 are grossly intact. No gross focal deficits to casual conversation. Psychiatric:??Pleasant and cooperative with normal mood and affect.? Judgment and insight intact. DS: Data Data Completed and Pending Labs on day of discharge: Labs from last 24 hours 04/24/23 04/24/23 04/24/23 11:35 07:30 06:46 WBC 3.4 L RBC 3.23 L Hgb 9.9 L Hct 32.5 L MCV 100.6 H MCH 30.7 MCHC 30.5 L RDW 17.8 H Plt Count 152 MPV 9.4 Immature Gran % (Auto) 0.3 Neut % (Auto) 62.4 Lymph % (Auto) 23.3 [place] % (Auto) 6.1 Eos % (Auto) 6.7 H Baso % (Auto) 1.2 Lymph # (Auto) 0.80 L [place] # (Auto) 0.2 Eos # (Auto) 0.2 Baso # (Auto) 0.0 Abs Immat Gran (auto) 0.01 Absolute Neuts (auto) 2.2 Absolute Nucleated RBC 0.0 Nucleated RBC % 0.0 POC Capillary Glucose 374 H 221 H 04/23/23 04/23/23 04/23/23 23:02 20:01 16:34 WBC RBC Hgb Hct MCV MCH MCHC RDW Plt Count MPV Immature Gran % (Auto) Neut % (Auto) Lymph % (Auto) [place] % (Auto) Eos % (Auto) Baso % (Auto) Lymph # (Auto) [place] # (Auto) Eos # (Auto) Baso # (Auto) Abs Immat Gran (auto) Absolute Neuts (auto) Absolute Nucleated RBC Nucleated RBC % POC Capillary Glucose 174 H 252 H 217 H 04/23/23 11:45 WBC RBC Hgb Hct MCV MCH MCHC RDW Plt Count MPV Immature Gran % (Auto) Neut % (Auto) Lymph % (Auto) [place] % (Auto) Eos % (Auto) Baso % (Auto) Lymph # (Auto) [place] # (Auto) Eos # (Auto) Baso # (Auto) Abs Immat Gran (auto) Absolute Neuts (auto) Absolute Nucleated RBC Nucleated RBC % POC Capillary Glucose 281 H Discharge Plan Discharge Attending physician on discharge: Noel Zazueta Consulting providers: Emiliano Shipman
== END 2023-04-24 14:50 | disposition home or self-care (01) | DRG 378 ==
LOC: ANHED 23:21 → ANH3MEDSUR 04-21 01:51
PROVIDERS: Emergency Medicine; Internal Medicine Gastroenterology; Physician Assistant; Admitting Provider Family Medicine; Emergency Provider Student in an Organized Health Care Education/Training Program; PCP Family Medicine; Visit Provider Chiropractor
PROC: 0DJ08ZZ Inspection of Upper Intestinal Tract, Via Natural or Artificial Opening Endoscopic (ICD-10-PCS; CPT 43235; principal; 2023-04-22 13:45)
DX: K55.21 Angiodysplasia of colon with hemorrhage (principal); D62 Acute posthemorrhagic anemia; I13.0 Hypertensive heart and chronic kidney disease with heart failure and stage 1 through stage 4 chronic kidney disease, or unspecified chronic kidney disease; I50.32 Chronic diastolic (congestive) heart failure; N18.30 Chronic kidney disease, stage 3 unspecified; E11.22 Type 2 diabetes mellitus with diabetic chronic kidney disease; I25.10 Atherosclerotic heart disease of native coronary artery without angina pectoris; I35.0 Nonrheumatic aortic (valve) stenosis; I48.0 Paroxysmal atrial fibrillation; I27.20 Pulmonary hypertension, unspecified; I65.21 Occlusion and stenosis of right carotid artery; E11.51 Type 2 diabetes mellitus with diabetic peripheral angiopathy without gangrene; K21.9 Gastro-esophageal reflux disease without esophagitis; K29.70 Gastritis, unspecified, without bleeding; K57.30 Diverticulosis of large intestine without perforation or abscess without bleeding; K44.9 Diaphragmatic hernia without obstruction or gangrene; E78.5 Hyperlipidemia, unspecified; E11.42 Type 2 diabetes mellitus with diabetic polyneuropathy; M17.0 Bilateral primary osteoarthritis of knee; Z79.82 Long term (current) use of aspirin; Z89.422 Acquired absence of other left toe(s); Z95.820 Peripheral vascular angioplasty status with implants and grafts; Z79.4 Long term (current) use of insulin
CPT/HCPCS: 36415; 36430; 74176; 80048; 80053; 82948; 85025; 85027; 85610; 85730; 86850; 86900; 86901; 86923; 96361; 96374; 99285; A9270; C9113; J1815; J2704; J7050; J7120; P9016

== ENCOUNTER 2023-05-09 10:43 | Outpatient (CLI) | payer MEDICARE, SELFPAY | END 2023-05-09 10:44 | disposition home or self-care (01) | LOC: ANHAUDIO 10:45 | PROVIDERS: PCP Family Medicine; Visit Provider Family Medicine | DX: H90.3 Sensorineural hearing loss, bilateral (principal) | CPT/HCPCS: 92557; 92567 ==

== ENCOUNTER 2024-01-28 15:00 | Emergency (ER) | payer MEDICARE, SELFPAY ==
--- NOTE | ~2024-01-28 | CT_ITS ---
EXAMINATION: CT abdomen pelvis wo con DATE: 01/28/2024 16:44 INDICATION: Left lower quadrant abdominal pain. TECHNIQUE: Computed tomography (CT) of the abdomen and pelvis was performed without intravenous contr ast. Automated exposure control and iterative reconstruction technique were employed. The dose-length product was 322.55 mGy-cm. COMPARISON: CT abdomen and pelvis 04/20/2023 FINDINGS: The visualized portions of lung bases demonstrate mild atelectasis. No pleural effusion. Ca rdiomegaly is noted. There are coronary artery calcifications. No pericardial effusion. There is a la rge sliding hiatal hernia. Calcifications in the liver and spleen are consistent with old granulomato us disease. There is a gallstone in the gallbladder, which is normal in size. The pancreas is normal. There is chronic nodular thickening of the adrenal glands, likely benign. There is cortical thinning of the kidneys. There is a 14 mm cyst in right kidney. There is no urolithiasis. There is gas in the bladder lumen, likely from recent instrumentation. There is diverticulosis of the colon without evid ence of diverticulitis. There are no dilated loops of bowel. There are changes of right hemicolectomy . There are no pathologically enlarged lymph nodes. There is no free intraperitoneal fluid. There is calcified atherosclerosis of the aorta and many of the other arteries. There is internal fixation of right femur. There is severe thoracic and lumbar spondylosis. There is a chronic compression fracture of T12. IMPRESSION: 1. Large sliding hiatal hernia. Reviewed, dictated and finalized at location E.
[2024-01-28 15:11] VITALS: BP 117/58; PULSE 72; RESP 16; TEMP 36.4; O2SAT 98
--- NOTE | 2024-01-28 15:44 | ED.GENADULT ---
HPI - General Adult General Chief complaint: GI Bleed Stated complaint: rectal bleeding Time Seen by Provider: 01/28/24 15:31 History of Present Illness HPI narrative: Patient is an 88-year-old female who presents to the emergency department this afternoon complaining of bloody diarrhea. Patient states the diarrhea started approximately 1 week ago and throughout the week she has noticed some streaking of blood in her diarrhea. Patient states that yesterday she started to feel better and only had 1 episode of diarrhea throughout the day but today she started to have diarrhea and noticed more blood streaking so she decided to come in for further evaluation. Patient admits that she does take an aspirin daily but denies any additional blood thinners or anti-platelet use. Admits to left lower quadrant abdominal pain, otherwise denies any additional symptoms including nausea or vomiting, denies any fevers or chills at home. No additional symptoms or concerns at this time. Related Data Home Medications Medication Instructions Recorded Confirmed simvastatin 40 mg tablet 40 mg PO HS 12/12/20 10/24/23 calcium carbonate 600 mg PO BID 04/15/22 10/24/23 ferrous sulfate 325 mg (65 mg 325 mg PO HS 08/11/22 10/24/23 iron) capsule,extended release sitagliptin phosphate 100 mg 100 mg PO DAILY 11/15/22 10/24/23 tablet (Januvia) bisacodyl 10 mg rectal suppository 10 mg RECTAL DAILY PRN Constipation 01/08/23 10/24/23 cholecalciferol (vitamin D3) 1,250 1,250 mcg PO WEEKLY 01/08/23 10/24/23 mcg (50,000 unit) capsule acetaminophen 500 mg capsule 500 mg PO Q6H PRN Pain (Scale 04/21/23 10/24/23 Score 1-3) multivitamin with minerals-folic 1 tablet PO DAILY 04/21/23 10/24/23 acid 12 mcg chewable tablet (Centrum Adults) pantoprazole 40 mg tablet,delayed 40 mg PO DAILY 04/21/23 10/24/23 release insulin glargine 100 unit/mL 28 unit subcut HS 08/18/23 10/24/23 subcutaneous solution (Lantus U-100 Insulin) magnesium oxide 400 mg PO DAILY 10/24/23 aspirin 81 mg tablet,delayed 81 mg PO DAILY 12/30/23 12/30/23 release celecoxib 200 mg capsule 200 mg PO DAILY 12/30/23 12/30/23 insulin lispro 100 unit/mL 10 unit subcut TID with meals 12/30/23 12/30/23 subcutaneous pen (Humalog KwikPen (U-100) Insulin) Allergies Allergy/AdvReac Type Severity Reaction Status Date / Time influenza A (H1N1) virus Allergy Unknown Swelling Verified 01/28/24 16:18 vaccine m-jong-split 2009 of Lip/Tongue/Throat Influenza Virus Vaccines Allergy Unknown Swelling Verified 01/28/24 16:18 of Lip/Tongue/Throat phenobarbital AdvReac Mild Hallucinati Verified 01/28/24 16:18 ng Review of Systems Review of Systems: All systems are reviewed and are negative unless stated otherwise in the HPI. FORMERLY [facility] Past Medical History Medical History Acute blood loss anemia Acute bronchitis Acute on chronic blood loss anemia Acute on chronic renal failure Anemia History of blood transfusions. Aortic valve stenosis [id number] aortic valve stenosis on echocardiogram in April 2021 with a valve area of 1.1 to 1.5 centimeter squared. Arthritis AVM (arteriovenous malformation) of colon with hemorrhage Graham lesion, acute (12/2022) Chronic kidney disease, stage 3 Depression Diabetic peripheral neuropathy Diastolic congestive heart failure Echocardiogram on 12/13/2020 showed normal left ventricular size with moderate consent of left ventricular hypertrophy with overall good left ventricular systolic function with an EF measuring 62%. There was hypokinesis of the basal inferoseptal segment as well as grade 1 diastolic dysfunction with moderately enlarged left atrial chamber and atrial septal aneurysm. Diverticulitis Dysuria Fracture of proximal end of right humerus (07/24/19) Conservative management Gastroesophageal reflux GI bleed Hearing loss, bilateral Hematochezia History of
[2024-01-28 16:10] LABS: Basophils Absolute Auto 0.1 K/mm3 (0.0-0.1); Basophils Percent Auto 0.7 % (0.2-1.2); Eosinophils Absolute Auto 0.3 K/mm3 (0-0.3); Eosinophils Percent Auto 4.3 % (0-4.4); Hematocrit 40.2 % (37.0-47.0); Hemoglobin 13.1 g/dL (12.0-15.0); Immature Granulocyte Absolute 0.01 K/mm3 (0.00-0.031); Immature Granulocyte Percent A 0.1 % (0-0.5); Lymphocytes Absolute Auto 1.61 K/mm3 (0.9-3.2); Lymphocytes Percent Auto 23.7 % (18.3-44.2); Mean Corpuscular HGB Conc 32.6 g/dl (32-36); Mean Corpuscular Hemoglobin 32.3 pg (26-34); Mean Corpuscular Volume 99.3 fl (80-100); Mean Platelet Volume 9.2 fl (7.4-10.4); Monocytes Absolute Auto 0.4 K/mm3 (0.1-0.6); Monocytes Percent Auto 5.6 % (2.6-8.5); Neutrophils Absolute Auto 4.4 K/mm3 (1.3-6.7); Neutrophils Percent Auto 65.6 % (45.5-73.1); Platelet Count Result 173 k/mm3 (150-375); Red Blood Count 4.05 M/mm3 (4.2-5.4); Red Cell Distribution Width 13.5 % (11.5-14.5); White Blood Count 6.8 K/mm3 (4.5-10.0)
[2024-01-28 16:15] VITALS: BP 129/64; PULSE 97; RESP 14; O2SAT 99
[2024-01-28 16:22] LABS: Alanine Aminotransferase 19 U/L (6-35); Albumin Level 4.4 g/dL (3.5-5.1); Alkaline Phosphatase 75 U/L (38-126); Anion Gap 10 mmol/L (4-12); Aspartate Amino Transferase 34 U/L (14-36); Bilirubin,Total 0.5 mg/dL (0.2-1.3); Blood Urea Nitrogen 62 mg/dL (7-17); Calcium 9.1 mg/dL (8.4-10.2); Carbon Dioxide 22 mmol/L (22-30); Chloride 104 mmol/L (98-107); Estimated CRCL calculation 19 ml/min; Estimated Glomerular Filt Rate 27; Glucose 192 mg/dL (65-110); Magnesium 1.8 mg/dL (1.6-2.3); Potassium 4.7 mmol/L (3.4-5.0); Sodium 136 mmol/L (137-145)
[2024-01-28] MEDS: PANTOPRAZOLE SODIUM IV 40 MG VIAL IV PUSH (17:00)
[2024-01-28] MEDS: ACETAMINOPHEN 325 MG TABLET 650 MG PO (17:01)
[2024-01-28 17:05] VITALS: BP 162/83; PULSE 80; RESP 19; O2SAT 97
[2024-01-28 17:25] VITALS: BP 146/87; PULSE 87; RESP 14; O2SAT 99
== END 2024-01-28 17:25 | disposition home or self-care (01) ==
PROVIDERS: Emergency Provider Emergency Medicine; PCP Family Medicine
DX: R19.7 Diarrhea, unspecified (principal); D64.9 Anemia, unspecified; M19.90 Unspecified osteoarthritis, unspecified site; I13.0 Hypertensive heart and chronic kidney disease with heart failure and stage 1 through stage 4 chronic kidney disease, or unspecified chronic kidney disease; E11.22 Type 2 diabetes mellitus with diabetic chronic kidney disease; N18.30 Chronic kidney disease, stage 3 unspecified; I50.30 Unspecified diastolic (congestive) heart failure; Z79.4 Long term (current) use of insulin; I48.91 Unspecified atrial fibrillation; I27.20 Pulmonary hypertension, unspecified
CPT/HCPCS: 36415; 74176; 80053; 83735; 85025; 86850; 86900; 86901; 96374; 99284; A9270; C9113

== ENCOUNTER 2024-02-09 18:04 | Inpatient (IN) | payer MEDICARE, SELFPAY ==
--- NOTE | ~2024-02-09 | XR_ITS ---
EXAMINATION: XR hip RT 2V w AP pelvis DATE: 02/09/2024 19:54 INDICATION: Fall. TECHNIQUE: An anteroposterior view of the pelvis on 2 radiographs of 2 views of right hip were obtain ed. COMPARISON: Right hip radiographs 08/30/2019 FINDINGS: There is an old healed fracture of proximal right femur with internal fixation with antegra de intramedullary du and 2 femoral head/neck screws. No acute fracture. There is mild osteoarthritis of the hips. There is severe lumbar spondylosis. IMPRESSION: 1. Mild osteoarthritis of the hips. Reviewed, dictated and finalized at location E.
--- NOTE | ~2024-02-09 | XR_ITS ---
EXAMINATION: XR lumbar spine 2-3V DATE: 02/09/2024 19:55 INDICATION: Low back pain. TECHNIQUE: 3 views of lumbar spine were obtained. COMPARISON: Chest 2 views 12/24/2022 FINDINGS: There is 12 degrees dextroscoliosis of thoracolumbar spine. There is a chronic compression fracture of T12. There is severely decreased disc height from L1-L2 through L5-S1. There is multileve l severe facet joint osteoarthritis. IMPRESSION: 1. Severe lumbar spondylosis. 2. Thoracolumbar dextroscoliosis. Reviewed, dictated and finalized at location E.
[2024-02-09 18:20] VITALS: BP 130/109; PULSE 69; RESP 18; TEMP 36.9; O2SAT 98
--- NOTE | 2024-02-09 19:48 | PC.NURSE ---
Pt is in x-ray at this time.
[2024-02-09] MEDS: ONDANSETRON INJ 4 MG/2 ML VIAL IV PUSH (19:58)
[2024-02-09] MEDS: SODIUM CHLORIDE 0.9% IV 1,000 ML 999 ML IV CONT (19:58)
[2024-02-09 20:17] VITALS: BP 157/66; PULSE 74
[2024-02-09 20:19] VITALS: BP 158/68; PULSE 75
--- NOTE | 2024-02-09 20:20 | ED.FALL ---
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 Fell directly on her buttock. Has bruising to the right low back/pelvis in the right hip. She has been ambulatory. She did not strike her head or lose consciousness. She takes some anti-platelet medication but no Plavix or anticoagulants. She does report mild use initially urinary frequency and dysuria. She is supposed to see her PCP tomorrow. Related Data Home Medications Medication Instructions Recorded Confirmed simvastatin 40 mg tablet 40 mg PO HS 12/12/20 02/10/24 calcium carbonate 600 mg PO BID 04/15/22 02/10/24 ferrous sulfate 325 mg (65 mg 325 mg PO HS 08/11/22 02/10/24 iron) capsule,extended release sitagliptin phosphate 100 mg 100 mg PO DAILY 11/15/22 02/10/24 tablet (Januvia) bisacodyl 10 mg rectal suppository 10 mg RECTAL DAILY PRN Constipation 01/08/23 02/10/24 cholecalciferol (vitamin D3) 1,250 1,250 mcg PO WEEKLY 01/08/23 02/10/24 mcg (50,000 unit) capsule acetaminophen 500 mg capsule 500 mg PO Q6H PRN Pain (Scale 04/21/23 02/10/24 Score 1-3) multivitamin with minerals-folic 1 tablet PO DAILY 04/21/23 02/10/24 acid 12 mcg chewable tablet (Centrum Adults) pantoprazole 40 mg tablet,delayed 40 mg PO DAILY 04/21/23 02/10/24 release insulin glargine 100 unit/mL 28 unit subcut HS 08/18/23 02/10/24 subcutaneous solution (Lantus U-100 Insulin) magnesium oxide 400 mg PO DAILY 10/24/23 02/10/24 aspirin 81 mg tablet,delayed 81 mg PO DAILY 12/30/23 02/10/24 release celecoxib 200 mg capsule 200 mg PO DAILY 12/30/23 02/10/24 insulin lispro 100 unit/mL 10 unit subcut TID with meals 12/30/23 02/10/24 subcutaneous pen (Humalog KwikPen (U-100) Insulin) Allergies Allergy/AdvReac Type Severity Reaction Status Date / Time influenza A (H1N1) virus Allergy Unknown Swelling Verified 01/28/24 16:18 vaccine m-jong-split 2008 of Lip/Tongue/Throat Influenza Virus Vaccines Allergy Unknown Swelling Verified 01/28/24 16:18 of Lip/Tongue/Throat phenobarbital AdvReac Mild Hallucinati Verified 01/28/24 16:18 ng Review of Systems Review of Systems: All systems reviewed & are unremarkable except as noted in HPI and below Constitutional: Constitutional: Reports no additional constitutional complaints Cardiovascular: Cardiovascular: Reports no additional cardiovascular complaints Respiratory: Respiratory: Reports no additional respiratory complaints Gastrointestinal: Gastrointestinal: Reports no additional gastrointestinal complaints Genitourinary: Genitourinary: Reports no additional female genitourinary complaints, Reports nocturia, Reports dysuria and Denies flank pain Musculoskeletal: Musculoskeletal: Reports no additional musculoskeletal complaints PMFSH Past Medical History Medical History Acute blood loss anemia Acute bronchitis Acute on chronic blood loss anemia Acute on chronic renal failure Anemia History of blood transfusions. Aortic valve stenosis [id number] aortic valve stenosis on echocardiogram in April 2021 with a valve area of 1.1 to 1.5 centimeter squared. Arthritis AVM (arteriovenous malformation) of colon with hemorrhage Graham lesion, acute (12/2022) Chronic kidney disease, stage 3 Depression Diabetic peripheral neuropathy Diastolic congestive heart failure Echocardiogram on 12/13/2020 showed normal left ventricular size with moderate consent of left ventricular hypertrophy with overall good left ventricular systolic function with an EF measuring 62%. There was hypokinesis of the basal inferoseptal segment as well as grade 1 diastolic dysfunction with moderately enlarged left atrial chamber and atrial septal aneurysm. Diverticulitis Dysuria Fracture of proxim
[2024-02-09 20:21] VITALS: BP 165/75; PULSE 74
[2024-02-09 20:25] VITALS: BP 165/68; PULSE 76; RESP 15; O2SAT 98
[2024-02-09 20:33] LABS: Basophils Percent Auto 0.7 % (0.2-1.2); Eosinophils Absolute Auto 0.3 K/mm3 (0-0.3); Hematocrit 37.1 % (37.0-47.0); Hemoglobin 12.3 g/dL (12.0-15.0); Immature Granulocyte Absolute 0.02 K/mm3 (0.00-0.031); Immature Granulocyte Percent A 0.4 % (0-0.5); Lymphocytes Absolute Auto 1.28 K/mm3 (0.9-3.2); Lymphocytes Percent Auto 22.5 % (18.3-44.2); Mean Corpuscular HGB Conc 33.2 g/dl (32-36); Mean Corpuscular Hemoglobin 32.4 pg (26-34); Mean Corpuscular Volume 97.6 fl (80-100); Mean Platelet Volume 9.2 fl (7.4-10.4); Monocytes Absolute Auto 0.3 K/mm3 (0.1-0.6); Neutrophils Absolute Auto 3.7 K/mm3 (1.3-6.7); Neutrophils Percent Auto 64.4 % (45.5-73.1); Platelet Count Result 155 k/mm3 (150-375); Red Cell Distribution Width 13.2 % (11.5-14.5); White Blood Count 5.7 K/mm3 (4.5-10.0)
[2024-02-09 20:47] LABS: Alanine Aminotransferase 15 U/L (6-35); Albumin Level 4.2 g/dL (3.5-5.1); Alkaline Phosphatase 68 U/L (38-126); Anion Gap 13 mmol/L (4-12); Aspartate Amino Transferase 28 U/L (14-36); Bilirubin,Total 0.3 mg/dL (0.2-1.3); Blood Urea Nitrogen 81 mg/dL (7-17); Calcium 9.4 mg/dL (8.4-10.2); Carbon Dioxide 23 mmol/L (22-30); Chloride 100 mmol/L (98-107); Estimated Glomerular Filt Rate 22; Glucose 211 mg/dL (65-110); Lipase 193 U/L (23-300); Potassium 4.4 mmol/L (3.4-5.0); Sodium 136 mmol/L (137-145)
[2024-02-09 21:19] LABS: Appearance Urine Cloudy (Clear); Bacteria Urine 4+ /hpf; Bilirubin Urine Negative (Negative); Blood Urine 1+ (Negative); Color Urine Yellow (Yellow); Glucose Urine UA 3+ mg/dL (Negative); Ketones Urine Negative (Negative); Leukocyte Esterase Ur 3+ LEU/UL (Negative); Nitrate Urine Negative (Negative); Non Pathogenic Casts 0-2; Protein Urine Negative (Negative); Specific Grav Ur 1.012 (1.001-1.035); Squamous Epithelial Cell Urine None Seen /hpf (Few); Urobilinogen Urine 0.2 mg/dL (<2.0); WBC Urine >100 /hpf (0-3); pH Urine 5.5 (5.0-9.0)
[2024-02-09 21:21] LABS: Add Urine Microscopic? YES
[2024-02-09 22:23] VITALS: BP 150/70; PULSE 67; RESP 15; O2SAT 98
--- NOTE | 2024-02-09 22:51 | PM.IMHP ---
H&P: HPI History of Present Illness Date/Time: 02/09/24 22:51 Chief Complaint: fall Narrative: This is an 88-year-old female care home resident with past medical history of type diabetes mellitus, hypertension, gear, gout. Patient had a fall mechanical ground level were chill landed on her bottom was eventually brought to the emergency room for evaluation due to weakness. In emergency room patient was found to have a urinalysis abnormal, patient denies any fevers, rigors, chills, nausea, vomiting has had diarrhea. Patient is been admitted for further evaluation management and treatment. EXAMINATION: XR hip RT 2V w AP pelvis DATE: 02/09/2024 19:54 INDICATION: Fall. TECHNIQUE: An anteroposterior view of the pelvis on 2 radiographs of 2 views of right hip were obtained. COMPARISON: Right hip radiographs 08/30/2019 FINDINGS: There is an old healed fracture of proximal right femur with internal fixation with antegrade intramedullary du and 2 femoral head/neck screws. No acute fracture. There is mild osteoarthritis of the hips. There is severe lumbar spondylosis. IMPRESSION: 1. Mild osteoarthritis of the hips. EXAMINATION: XR lumbar spine 2-3V DATE: 02/09/2024 19:55 INDICATION: Low back pain. TECHNIQUE: 3 views of lumbar spine were obtained. COMPARISON: Chest 2 views 12/24/2022 FINDINGS: There is 12 degrees dextroscoliosis of thoracolumbar spine. There is a chronic compression fracture of T12. There is severely decreased disc height from L1-L2 through L5-S1. There is multilevel severe facet joint osteoarthritis. IMPRESSION: 1. Severe lumbar spondylosis. 2. Thoracolumbar dextroscoliosis. Review of Systems Review of Systems: fall, diarrhea Constitutional: Constitutional: Denies chills, Denies fever(s) and Denies night sweats Eyes: Eyes: Denies change in vision ENT: Denies dysphagia and Denies odynophagia Cardiovascular: Cardiovascular: Denies chest pain Respiratory: Respiratory: Denies cough and Denies excessive phlegm production Gastrointestinal: Gastrointestinal: Denies abdominal pain, Reports diarrhea, Denies nausea and Denies vomiting Genitourinary: Genitourinary: Denies dysuria Musculoskeletal: Musculoskeletal: Reports back pain and Reports other ( fall) Integumentary/Breasts: Skin/Breast: Reports other ( bruises) Neurologic: Denies focal weakness and Denies Sensory deficit (Neuro) Psychiatric: Psychiatric: Reports no additional psychiatric complaints and Reports as per HPI Endocrine: Endocrine: Denies cold intolerance, Denies heat intolerance, Denies polyphagia, Denies polydipsia, Denies polyuria and Denies palpitations Hematologic/Lymphatic: Hematologic/Lymphatic: Reports no additional hematologic/lymphatic complaints and Reports as per HPI Allergic/Immunologic: Allergic/Immunologic: Reports no additional allergic/immunologic complaints and Reports as per HPI [facility] Past Medical History Medical History Acute blood loss anemia Acute bronchitis Acute on chronic blood loss anemia Acute on chronic renal failure Anemia History of blood transfusions. Aortic valve stenosis [id number] aortic valve stenosis on echocardiogram in April 2021 with a valve area of 1.1 to 1.5 centimeter squared. Arthritis AVM (arteriovenous malformation) of colon with hemorrhage Graham lesion, acute (12/2022) Chronic kidney disease, stage 3 Depression Diabetic peripheral neuropathy Diastolic congestive heart failure Echocardiogram on 12/13/2020 showed normal left ventricular size with moderate consent of left ventricular hypertrophy with overall good left ventricular systolic function with an EF measuring 62%. There was hypokinesis of the basal inferoseptal segment as well as grade 1 diastolic dysfunction with moderately enlarged left atrial chamber and atrial septal aneurysm. Diverticulitis Dysuria Fracture of proximal end of right humeru
[2024-02-10] VITALS (7 sets, daily range): BP systolic 129–150; BP diastolic 54–79; PULSE 70–112; RESP 14–18; TEMP 36.1–36.8; O2SAT 97–100; BMI 22.9
--- NOTE | 2024-02-10 01:44 | ADMGEN ---
This patient, Elizabeth Negron, was admitted to 3 [facility] Surg Room 315-01. Patient/family oriented to hospital policies and general routines including ID bracelet, bed and alarms, visiting hours, pain management, procedures, bathroom and other care routines, personal items, smoking policy, room service/diet, and visiting hours. Information on how to activate the Rapid Response Team has been discussed. Patient/Family are encouraged to report perceived risks to care and to ask questions if they do not understand what they are told or what they should do.
[2024-02-10 01:48] LABS: Glucose Point of Care 123 mg/dl (65-105)
[2024-02-10] MEDS: HYDROcodone/acetaminophen (*CRX) 5-325 MG TABLET 1 TAB PO ×2 (04:48→20:03)
[2024-02-10] MEDS: SODIUM CHLORIDE 0.9% IV 1,000 ML 125 ML IV CONT ×2 (04:50→17:40)
[2024-02-10 07:51] LABS: Glucose Point of Care 211 mg/dl (65-105)
[2024-02-10 08:29] LABS: Basophils Absolute Auto 0.1 K/mm3 (0.0-0.1); Basophils Percent Auto 0.8 % (0.2-1.2); Eosinophils Absolute Auto 0.4 K/mm3 (0-0.3); Eosinophils Percent Auto 7.1 % (0-4.4); Hemoglobin 11.8 g/dL (12.0-15.0); Immature Granulocyte Absolute 0.02 K/mm3 (0.00-0.031); Immature Granulocyte Percent A 0.3 % (0-0.5); Lymphocytes Absolute Auto 1.21 K/mm3 (0.9-3.2); Mean Corpuscular HGB Conc 32.8 g/dl (32-36); Mean Corpuscular Hemoglobin 32.4 pg (26-34); Mean Corpuscular Volume 98.9 fl (80-100); Mean Platelet Volume 9.1 fl (7.4-10.4); Monocytes Absolute Auto 0.4 K/mm3 (0.1-0.6); Monocytes Percent Auto 6.9 % (2.6-8.5); Neutrophils Absolute Auto 3.9 K/mm3 (1.3-6.7); Neutrophils Percent Auto 64.9 % (45.5-73.1); Platelet Count Result 147 k/mm3 (150-375); Red Blood Count 3.64 M/mm3 (4.2-5.4); Red Cell Distribution Width 13.2 % (11.5-14.5); White Blood Count 6.1 K/mm3 (4.5-10.0)
[2024-02-10] MEDS: METOPROLOL TARTRATE 50 MG TAB PO ×2 (08:36→20:03)
[2024-02-10] MEDS: CALCIUM CARBONATE (OSCAL) 500 MG TABLET PO ×2 (08:36→17:38)
[2024-02-10] MEDS: EMPAGLIFLOZIN 25 MG TABLET PO (08:36)
[2024-02-10] MEDS: ASPIRIN 81 MG ENTERIC TABLET PO (08:36)
[2024-02-10] MEDS: MULTIVITAMINS /C LUTEIN (CENTRUM SILVER) TABLET *BKC 1 TAB PO (08:36)
[2024-02-10] MEDS: allopurinoL 100 MG TABLET PO (08:36)
[2024-02-10] MEDS: CELECOXIB 200 MG CAPSULE PO (08:36)
[2024-02-10] MEDS: MAGNESIUM OXIDE 400 MG TABLET PO (08:36)
[2024-02-10] MEDS: INSULIN ASPART (*BKC) 100 UNITS/ML 10 UNITS SUB-Q ×2 (08:37→12:38)
[2024-02-10] MEDS: PANTOPRAZOLE 40 MG TABLET PO (08:37)
[2024-02-10] MEDS: FLUTICASONE PROPIONATE 0.05% NA SPR 16 GM BTL (*BKC) 1 SPRAY NASAL ×2 (08:40→21:23)
[2024-02-10 08:53] LABS: Alanine Aminotransferase 15 U/L (6-35); Albumin Level 3.9 g/dL (3.5-5.1); Alkaline Phosphatase 66 U/L (38-126); Anion Gap 8 mmol/L (4-12); Aspartate Amino Transferase 27 U/L (14-36); Bilirubin,Total 0.3 mg/dL (0.2-1.3); Blood Urea Nitrogen 67 mg/dL (7-17); Calcium 9.3 mg/dL (8.4-10.2); Carbon Dioxide 26 mmol/L (22-30); Chloride 106 mmol/L (98-107); Estimated CRCL calculation 21 ml/min; Estimated Glomerular Filt Rate 28; Glucose 188 mg/dL (65-110); Potassium 4.4 mmol/L (3.4-5.0); Sodium 140 mmol/L (137-145)
[2024-02-10 11:31] LABS: Glucose Point of Care 110 mg/dl (65-105)
--- NOTE | 2024-02-10 15:58 | P.PNIM_ITS ---
Progress Note: A&P Assessment and Plan (1) Fall: Qualifiers: Encounter type: initial encounter Qualified Code(s): W19.XXXA - Unspecified fall, initial encounter Code(s): W19.XXXA - Unspecified fall, initial encounter Status: Acute Assessment and Plan: * Patient presented to the ED with complaints of generalized weakness * Fall precautions * PT and OT (2) Urinary tract infection: Code(s): N39.0 - Urinary tract infection, site not specified Status: Acute Assessment and Plan: * UA did come back with 3+ leukocyte esterase, greater than 100 WBC 4 +bacteria * Urine culture pending * Continue IV ceftriaxone * Change antibiotics to susceptibilities (3) Acute kidney injury superimposed on CKD: Code(s): N17.9 - Acute kidney failure, unspecified; N18.9 - Chronic kidney disease, unspecified Status: Acute Assessment and Plan: * Current BUN/creatinine 67/1.70 * Creatinine time admission was 2.10 * Baseline creatinine 1.3-1.8 * Continue IV fluids for now * Trend labs * Trend urine output * Avoid nephrotoxic medications * Renal dose medications as indicated (4) Diabetes mellitus: Code(s): E11.9 - Type 2 diabetes mellitus without complications Status: Acute Assessment and Plan: * Current glucose is 188 * holding Ezetimibe and sitagliptin * continue insulin glargine and lispro * Trend glucose * Accu checks * Adjust therapy as indicated (5) CHF (congestive heart failure): Qualifiers: Heart failure chronicity: acute on chronic Heart failure type: right- sided Qualified Code(s): I50.813 - Acute on chronic right heart failure Code(s): I50.9 - Heart failure, unspecified Status: Acute Assessment and Plan: * Echo from 11/2022 EF >70% * monitor daily intake and output * continue to monitor * patient appears dry on physical exam * Trend volume status * Not in acute exacerbation * Restart lasix when indicted Plan RN from facility notes that the patient had bloody stools however patient has n ot had any bloody stools were stools at all since hydration. Hemoglobin hematocrit stable. At this time will trend labs. Time Spent With Patient Time: 58 minutes Time with patient: Greater than 35 minutes Subjective Date/time seen: 02/10/24 15:58 Interval history: 07/11/24 22:51 This is an 88-year-old female alf resident with past medical history of type diabetes mellitus, hypertension, gear, gout. Patient had a fall mechanical ground level were chill landed on her bottom was eventually brought to the emergency room for evaluation due to weakness. In emergency room patient was found to have a urinalysis abnormal, patient denies any fevers, rigors, chills, nausea, vomiting has had diarrhea. Patient is been admitted for further evaluation management and treatment. 02/10/2024 1115 Patient was lying in bed. She was stated that she had some pretty significant diarrhea before she came in however does appear to have UTI. Currently she denies any chest pain, shortness a breath, nausea, vomiting, diarrhea constipation at this time. Did receive a phone call from care coordination which stated that the patient was having some bloody stool however no notable bloody stool since admission. Review of Systems Review of Systems: All systems reviewed & are unremarkable except
--- NOTE | 2024-02-10 15:58 | PM.IMPN ---
Progress Note: A&P Assessment and Plan (1) Fall: Qualifiers: Encounter type: initial encounter Qualified Code(s): W19.XXXA - Unspecified fall, initial encounter Code(s): W19.XXXA - Unspecified fall, initial encounter Status: Acute Assessment and Plan: Patient presented to the ED with complaints of generalized weakness Fall precautions PT and OT (2) Urinary tract infection: Code(s): N39.0 - Urinary tract infection, site not specified Status: Acute Assessment and Plan: UA did come back with 3+ leukocyte esterase, greater than 100 WBC 4 +bacteria Urine culture pending Continue IV ceftriaxone Change antibiotics to susceptibilities (3) Acute kidney injury superimposed on CKD: Code(s): N17.9 - Acute kidney failure, unspecified; N18.9 - Chronic kidney disease, unspecified Status: Acute Assessment and Plan: Current BUN/creatinine 67/1.70 Creatinine time admission was 2.10 Baseline creatinine 1.3-1.8 Continue IV fluids for now Trend labs Trend urine output Avoid nephrotoxic medications Renal dose medications as indicated (4) Diabetes mellitus: Code(s): E11.9 - Type 2 diabetes mellitus without complications Status: Acute Assessment and Plan: Current glucose is 188 holding Ezetimibe and sitagliptin continue insulin glargine and lispro Trend glucose Accu checks Adjust therapy as indicated (5) CHF (congestive heart failure): Qualifiers: Heart failure chronicity: acute on chronic Heart failure type: right-sided Qualified Code(s): I50.813 - Acute on chronic right heart failure Code(s): I50.9 - Heart failure, unspecified Status: Acute Assessment and Plan: Echo from 11/2022 EF >70% monitor daily intake and output continue to monitor patient appears dry on physical exam Trend volume status Not in acute exacerbation Restart lasix when indicted Plan RN from facility notes that the patient had bloody stools however patient has not had any bloody stools were stools at all since hydration. Hemoglobin hematocrit stable. At this time will trend labs. Time Spent With Patient Time: 58 minutes Time with patient: Greater than 35 minutes Subjective Date/time seen: 02/10/24 15:58 Interval history: 02/09/24 22:51 This is an 88-year-old female assisted resident with past medical history of type diabetes mellitus, hypertension, gear, gout. Patient had a fall mechanical ground level were chill landed on her bottom was eventually brought to the emergency room for evaluation due to weakness. In emergency room patient was found to have a urinalysis abnormal, patient denies any fevers, rigors, chills, nausea, vomiting has had diarrhea. Patient is been admitted for further evaluation management and treatment. 02/10/2024 1115 Patient was lying in bed. She was stated that she had some pretty significant diarrhea before she came in however does appear to have UTI. Currently she denies any chest pain, shortness a breath, nausea, vomiting, diarrhea constipation at this time. Did receive a phone call from care coordination which stated that the patient was having some bloody stool however no notable bloody stool since admission. Review of Systems Review of Systems: All systems reviewed & are unremarkable except as noted in HPI and below Exam Narrative: General: well-nourished, well-appearing 88-year-old female, sitting up in bed, comfortable, NARD Neuro: awake, alert and oriented x4, speech clear, no focal neuro deficits noted HEENMT: normocephalic, atraumatic, EOMI, sclerae anicteric, moist oral mucosa Respiratory: Clear to auscultation bilaterally without crackles, rhonchi or wheezes, nonlabored breathing Cardio: regular rate, regular rhythm with S1-S2 Abdomen: nondistended, normoactive bowel sounds, soft, nontender to pa
[2024-02-10 17:05] LABS: Glucose Point of Care 91 mg/dl (65-105)
[2024-02-10] MEDS: FERROUS SULFATE 325 MG TABLET DR BY MOUTH (20:03)
[2024-02-10] MEDS: traZODone HCL 50 MG TABLET PO (20:03)
[2024-02-10] MEDS: SIMVASTATIN 20 MG TABLET 40 MG PO (20:04)
[2024-02-10 20:48] LABS: Glucose Point of Care 129 mg/dl (65-105)
[2024-02-10] MEDS: INSULIN GLARGINE (*BKC) 100 UNITS/ML 28 UNITS SUB-Q (21:24)
[2024-02-11 04:39] LABS: Glucose Point of Care 119 mg/dl (65-105)
[2024-02-11] MEDS: SODIUM CHLORIDE 0.9% IV 1,000 ML 125 ML IV CONT ×3 (05:06→23:00)
[2024-02-11 05:26] VITALS: BP 171/83; PULSE 101; RESP 20; TEMP 36.6; O2SAT 95
[2024-02-11 07:35] LABS: Glucose Point of Care 141 mg/dl (65-105)
[2024-02-11 08:00] VITALS: O2SAT 95
[2024-02-11 08:12] VITALS: PULSE 101
[2024-02-11] MEDS: MULTIVITAMINS /C LUTEIN (CENTRUM SILVER) TABLET *BKC 1 TAB PO (08:12)
[2024-02-11] MEDS: EMPAGLIFLOZIN 25 MG TABLET PO (08:12)
[2024-02-11] MEDS: PANTOPRAZOLE 40 MG TABLET PO (08:12)
[2024-02-11] MEDS: METOPROLOL TARTRATE 50 MG TAB PO ×2 (08:12→20:17)
[2024-02-11] MEDS: MAGNESIUM OXIDE 400 MG TABLET PO (08:12)
[2024-02-11] MEDS: allopurinoL 100 MG TABLET PO (08:12)
[2024-02-11] MEDS: CELECOXIB 200 MG CAPSULE PO (08:12)
[2024-02-11] MEDS: CALCIUM CARBONATE (OSCAL) 500 MG TABLET PO ×2 (08:12→16:29)
[2024-02-11] MEDS: ASPIRIN 81 MG ENTERIC TABLET PO (08:12)
[2024-02-11 08:42] VITALS: O2SAT 94
[2024-02-11 08:47] LABS: Basophils Absolute Auto 0.1 K/mm3 (0.0-0.1); Basophils Percent Auto 0.9 % (0.2-1.2); Eosinophils Absolute Auto 0.6 K/mm3 (0-0.3); Eosinophils Percent Auto 9.5 % (0-4.4); Hematocrit 36.7 % (37.0-47.0); Hemoglobin 11.8 g/dL (12.0-15.0); Immature Granulocyte Absolute 0.02 K/mm3 (0.00-0.031); Immature Granulocyte Percent A 0.3 % (0-0.5); Lymphocytes Percent Auto 20.4 % (18.3-44.2); Mean Corpuscular HGB Conc 32.2 g/dl (32-36); Mean Corpuscular Hemoglobin 32.6 pg (26-34); Mean Corpuscular Volume 101.4 fl (80-100); Mean Platelet Volume 9.6 fl (7.4-10.4); Monocytes Absolute Auto 0.3 K/mm3 (0.1-0.6); Monocytes Percent Auto 5.5 % (2.6-8.5); Neutrophils Absolute Auto 3.7 K/mm3 (1.3-6.7); Neutrophils Percent Auto 63.4 % (45.5-73.1); Platelet Count Result 162 k/mm3 (150-375); Red Blood Count 3.62 M/mm3 (4.2-5.4); Red Cell Distribution Width 13.4 % (11.5-14.5); White Blood Count 5.9 K/mm3 (4.5-10.0)
[2024-02-11] MEDS: FLUTICASONE PROPIONATE 0.05% NA SPR 16 GM BTL (*BKC) 1 SPRAY NASAL ×2 (09:04→20:18)
[2024-02-11 09:35] LABS: Alanine Aminotransferase 16 U/L (6-35); Albumin Level 3.9 g/dL (3.5-5.1); Alkaline Phosphatase 67 U/L (38-126); Anion Gap 11 mmol/L (4-12); Aspartate Amino Transferase 32 U/L (14-36); Bilirubin,Total 0.4 mg/dL (0.2-1.3); Blood Urea Nitrogen 50 mg/dL (7-17); Calcium 9.1 mg/dL (8.4-10.2); Carbon Dioxide 21 mmol/L (22-30); Chloride 109 mmol/L (98-107); Estimated CRCL calculation 29 ml/min; Estimated Glomerular Filt Rate 42; Glucose 134 mg/dL (65-110); Magnesium 1.8 mg/dL (1.6-2.3); Potassium 4.3 mmol/L (3.4-5.0); Sodium 141 mmol/L (137-145)
[2024-02-11] MEDS: HYDROcodone/acetaminophen (*CRX) 5-325 MG TABLET 1 TAB PO ×2 (10:37→20:14)
--- NOTE | 2024-02-11 10:45 | P.PNIM_ITS ---
Progress Note: A&P Assessment and Plan (1) Fall: Qualifiers: Encounter type: initial encounter Qualified Code(s): W19.XXXA - Unspecified fall, initial encounter Code(s): W19.XXXA - Unspecified fall, initial encounter Status: Acute Assessment and Plan: * Patient presented to the ED with complaints of generalized weakness * Fall precautions * PT and OT (2) Urinary tract infection: Code(s): N39.0 - Urinary tract infection, site not specified Status: Acute Assessment and Plan: * UA did come back with 3+ leukocyte esterase, greater than 100 WBC 4 +bacteria * Urine culture pending * Continue IV ceftriaxone q 24. hrs * Change antibiotics to susceptibilities (3) Acute kidney injury superimposed on CKD: Code(s): N17.9 - Acute kidney failure, unspecified; N18.9 - Chronic kidney disease, unspecified Status: Acute Assessment and Plan: * Current BUN/creatinine 50/1.20 * Creatinine time admission was 2.10 * Continue IV fluids for now * Trend labs * Trend urine output * Avoid nephrotoxic medications * Renal dose medications as indicated (4) Diabetes mellitus: Code(s): E11.9 - Type 2 diabetes mellitus without complications Status: Acute Assessment and Plan: * Continue holding Ezetimibe and sitagliptin * continue insulin glargine and lispro * Trend glucose * Accu checks * Adjust therapy as indicated (5) CHF (congestive heart failure): Qualifiers: Heart failure chronicity: acute on chronic Heart failure type: right- sided Qualified Code(s): I50.813 - Acute on chronic right heart failure Code(s): I50.9 - Heart failure, unspecified Status: Acute Assessment and Plan: * Not acute exacerbation * Echo from 11/2022 EF >70% * monitor daily intake and output * continue to monitor * Consider restart Lasix in the a.m. 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 Patient had a fall mechanical ground level landing on her bottom, brought to the emergency room for evaluation due to weakness. In emergency room patient was found to have a urinalysis abnormal, patient denies any fevers, rigors, chills, nausea, vomiting has had diarrhea. Patient was admitted for further evaluation management and treatment. 02/11/2024: Pt seen this am, she denies any overnight events, she c/o of right temporal headache dull 4/10, along with left great toe pain 5/10. She denies any vision changes, SOB, chest pain, n/v at this time. Exam Narrative: General: well-nourished, well-appearing 88-year-old female, sitting up in bed, comfortable, NARD Neuro: awake, alert and oriented x4, speech clear, no focal neuro deficits noted HEENMT: normocephalic, atraumatic, EOMI, sclerae anicteric, moist oral mucosa Respiratory: Clear to auscultation bilaterally without crackles, rhonchi or wheezes, nonlabored breathing Cardio: regular rate, regular rhythm with S1-S2 Abdomen: nondistended, normoactive bowel sounds, soft, nontender to palpation Extremities: n
--- NOTE | 2024-02-11 10:45 | PM.IMPN ---
Progress Note: A&P Assessment and Plan (1) Fall: Qualifiers: Encounter type: initial encounter Qualified Code(s): W19.XXXA - Unspecified fall, initial encounter Code(s): W19.XXXA - Unspecified fall, initial encounter Status: Acute Assessment and Plan: Patient presented to the ED with complaints of generalized weakness Fall precautions PT and OT (2) Urinary tract infection: Code(s): N39.0 - Urinary tract infection, site not specified Status: Acute Assessment and Plan: UA did come back with 3+ leukocyte esterase, greater than 100 WBC 4 +bacteria Urine culture pending Continue IV ceftriaxone q 24. hrs Change antibiotics to susceptibilities (3) Acute kidney injury superimposed on CKD: Code(s): N17.9 - Acute kidney failure, unspecified; N18.9 - Chronic kidney disease, unspecified Status: Acute Assessment and Plan: Current BUN/creatinine 50/1.20 Creatinine time admission was 2.10 Continue IV fluids for now Trend labs Trend urine output Avoid nephrotoxic medications Renal dose medications as indicated (4) Diabetes mellitus: Code(s): E11.9 - Type 2 diabetes mellitus without complications Status: Acute Assessment and Plan: Continue holding Ezetimibe and sitagliptin continue insulin glargine and lispro Trend glucose Accu checks Adjust therapy as indicated (5) CHF (congestive heart failure): Qualifiers: Heart failure chronicity: acute on chronic Heart failure type: right-sided Qualified Code(s): I50.813 - Acute on chronic right heart failure Code(s): I50.9 - Heart failure, unspecified Status: Acute Assessment and Plan: Not acute exacerbation Echo from 11/2022 EF >70% monitor daily intake and output continue to monitor Consider restart Lasix in the a.m. 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 Patient had a fall mechanical ground level landing on her bottom, brought to the emergency room for evaluation due to weakness. In emergency room patient was found to have a urinalysis abnormal, patient denies any fevers, rigors, chills, nausea, vomiting has had diarrhea. Patient was admitted for further evaluation management and treatment. 02/11/2024: Pt seen this am, she denies any overnight events, she c/o of right temporal headache dull 4/10, along with left great toe pain 5/10. She denies any vision changes, SOB, chest pain, n/v at this time. Exam Narrative: General: well-nourished, well-appearing 88-year-old female, sitting up in bed, comfortable, NARD Neuro: awake, alert and oriented x4, speech clear, no focal neuro deficits noted HEENMT: normocephalic, atraumatic, EOMI, sclerae anicteric, moist oral mucosa Respiratory: Clear to auscultation bilaterally without crackles, rhonchi or wheezes, nonlabored breathing Cardio: regular rate, regular rhythm with S1-S2 Abdomen: nondistended, normoactive bowel sounds, soft, nontender to palpation Extremities: no edema, erythema, or tenderness to palpation, DP pulses 2+ bilaterally Skin: no rashes or lesions, warm and dry Psych: appropriate mood and affect, judgment and insight intact Objective Data Vital Signs Vital Signs: Vital Signs - 24 hr 02/10/24 11:06 02/10/24 14:00 02/10/24 21:00 Temperature 98.2 F 97.2 F L Pulse Rate 71 112 H Respiratory Rate 18 18 Blood Pressure 135/54 L 148/58 H Pulse Oximetry 100 100 Oxygen Delivery Room Air Fraction of Inspired Oxygen 02/11/24 05:26 02/11/24 08:
[2024-02-11 11:24] LABS: Glucose Point of Care 193 mg/dl (65-105)
[2024-02-11 14:00] VITALS: BP 159/69; PULSE 66; RESP 20; TEMP 36.4; O2SAT 97
[2024-02-11 16:45] LABS: Glucose Point of Care 158 mg/dl (65-105)
[2024-02-11] MEDS: traZODone HCL 50 MG TABLET PO (20:16)
[2024-02-11] MEDS: FERROUS SULFATE 325 MG TABLET DR BY MOUTH (20:16)
[2024-02-11] MEDS: SIMVASTATIN 20 MG TABLET 40 MG PO (20:16)
[2024-02-11] MEDS: HEPARIN SODIUM 5,000 UNITS/ML VIAL 5000 UNITS SUB-Q (20:17)
[2024-02-11] MEDS: INSULIN GLARGINE (*BKC) 100 UNITS/ML 28 UNITS SUB-Q (20:17)
[2024-02-11 20:31] LABS: Glucose Point of Care 185 mg/dl (65-105)
[2024-02-11 20:58] VITALS: BP 172/51; PULSE 80; RESP 18; TEMP 36.4; O2SAT 96
[2024-02-12 05:05] VITALS: BP 174/74; PULSE 76; RESP 16; TEMP 36.6; O2SAT 96
[2024-02-12] MEDS: SODIUM CHLORIDE 0.9% IV 1,000 ML 125 ML IV CONT (05:49)
[2024-02-12 07:32] LABS: Glucose Point of Care 117 mg/dl (65-105)
[2024-02-12] MEDS: MULTIVITAMINS /C LUTEIN (CENTRUM SILVER) TABLET *BKC 1 TAB PO (09:09)
[2024-02-12] MEDS: CALCIUM CARBONATE (OSCAL) 500 MG TABLET PO (09:09)
[2024-02-12] MEDS: HYDROcodone/acetaminophen (*CRX) 5-325 MG TABLET 1 TAB PO (09:09)
[2024-02-12] MEDS: MAGNESIUM OXIDE 400 MG TABLET PO (09:09)
[2024-02-12 09:10] VITALS: PULSE 98; O2SAT 93
[2024-02-12] MEDS: CELECOXIB 200 MG CAPSULE PO (09:10)
[2024-02-12] MEDS: allopurinoL 100 MG TABLET PO (09:10)
[2024-02-12] MEDS: ASPIRIN 81 MG ENTERIC TABLET PO (09:10)
[2024-02-12] MEDS: EMPAGLIFLOZIN 25 MG TABLET PO (09:10)
[2024-02-12] MEDS: HEPARIN SODIUM 5,000 UNITS/ML VIAL 5000 UNITS SUB-Q (09:10)
[2024-02-12] MEDS: PANTOPRAZOLE 40 MG TABLET PO (09:10)
[2024-02-12] MEDS: METOPROLOL TARTRATE 50 MG TAB PO (09:10)
[2024-02-12] MEDS: FLUTICASONE PROPIONATE 0.05% NA SPR 16 GM BTL (*BKC) 1 SPRAY NASAL (09:11)
[2024-02-12] MEDS: INSULIN ASPART (*BKC) 100 UNITS/ML 10 UNITS SUB-Q ×2 (09:12→12:16)
--- NOTE | 2024-02-12 09:31 | P.PNIM_ITS ---
Progress Note: A&P Assessment and Plan (1) Fall: Qualifiers: Encounter type: initial encounter Qualified Code(s): W19.XXXA - Unspecified fall, initial encounter Code(s): W19.XXXA - Unspecified fall, initial encounter Status: Acute Assessment and Plan: 02/12/24: * Continue fall precautions * PT and OT are ordered and recommending skilled PT and OT * Case coordination following (2) Urinary tract infection: Code(s): N39.0 - Urinary tract infection, site not specified Status: Acute Assessment and Plan: 02/12/24: * UA initially showing 3+ urine glucose, 1+ urine blood, 3+ leukocyte, 3-5 urine RBC, greater than 100 urine WBC, 4+ bacteria * Urine culture showing Klebs aerogenes * Rocephin DC and patient started on cefdinir (3) Acute kidney injury superimposed on CKD: Code(s): N17.9 - Acute kidney failure, unspecified; N18.9 - Chronic kidney disease, unspecified Status: Acute Assessment and Plan: 02/12/24: * Patient is back to baseline creatinine (4) Diabetes mellitus: Code(s): E11.9 - Type 2 diabetes mellitus without complications Status: Acute Assessment and Plan: 02/12/24: * Blood sugars ranging 117-185 * Last hemoglobin A1c 9.8 on 01/08/2023 * Will repeat hemoglobin A1c today * Accu-Cheks AC and HS * Hypoglycemic protocol in place * Insulin 10 units subQ t.i.d. with meals * Lantus 28 units subQ at bedtime * Low-dose sliding scale insulin ordered * Continue holding Ezetimibe and sitagliptin * Will restart Januvia (5) CHF (congestive heart failure): Qualifiers: Heart failure chronicity: acute on chronic Heart failure type: right- sided Qualified Code(s): I50.813 - Acute on chronic right heart failure Code(s): I50.9 - Heart failure, unspecified Status: Acute Assessment and Plan: 02/12/24: * Last echo reviewed from 12/25/2022 which shown normal LV systolic function with an estimated EF of greater than 70%, mild aortic valve stenosis. * monitor daily intake and output * Lasix restarted Time Spent With Patient Time with patient: 25 - 35 minutes Subjective Date/time seen: 02/12/24 09:31 Interval history: Interval history: This is an 88-year-old female who presented to the hospital on 02/09/2024 for evaluation after a ground level fall. Workup in the hospital included hip and pelvis x-ray which showed mild osteoarthritis the hip, and old healed fracture of the proximal right femur with internal fixation, severe lumbar spondylosis. Lumbar spine x-ray showed severe lumbar spondylosis, thoracolumbar dextroscoliosis. Initial labs showed a normal white blood cell count of 5.7 sodium 136, creatinine 2.1, EGFR 22. UA was obtained and showed 3+ glucose, 1+ urine blood, 3+ leukocytes, 3-5 urine RBC, greater than 100 urine WBC, 4+ urine bacteria. Urine culture showing Klebsiella aerogenes on final read. She was started on Rocephin which we will switch over to cefdinir today as she was pansensitive. Last echo was reviewed from 12/25/2022 and showed normal LV systolic function with an estimated EF of greater than 70, mild aortic valve stenosis. PT and OT have been working with her from their last visit with her recommending skilled PT and OT. Patient lives at the [facility] in the assisted living side. Case coordination is following. 02/12/24: Patient denies. Patient endorses.
--- NOTE | 2024-02-12 09:31 | PM.IMPN ---
Progress Note: A&P Assessment and Plan (1) Fall: Qualifiers: Encounter type: initial encounter Qualified Code(s): W19.XXXA - Unspecified fall, initial encounter Code(s): W19.XXXA - Unspecified fall, initial encounter Status: Acute Assessment and Plan: 02/12/24: Continue fall precautions PT and OT are ordered and recommending skilled PT and OT Case coordination following (2) Urinary tract infection: Code(s): N39.0 - Urinary tract infection, site not specified Status: Acute Assessment and Plan: 02/12/24: UA initially showing 3+ urine glucose, 1+ urine blood, 3+ leukocyte, 3-5 urine RBC, greater than 100 urine WBC, 4+ bacteria Urine culture showing Klebs aerogenes Rocephin DC and patient started on cefdinir (3) Acute kidney injury superimposed on CKD: Code(s): N17.9 - Acute kidney failure, unspecified; N18.9 - Chronic kidney disease, unspecified Status: Acute Assessment and Plan: 02/12/24: Patient is back to baseline creatinine (4) Diabetes mellitus: Code(s): E11.9 - Type 2 diabetes mellitus without complications Status: Acute Assessment and Plan: 02/12/24: Blood sugars ranging 117-185 Last hemoglobin A1c 9.8 on 01/08/2023 Will repeat hemoglobin A1c today Accu-Cheks AC and HS Hypoglycemic protocol in place Insulin 10 units subQ t.i.d. with meals Lantus 28 units subQ at bedtime Low-dose sliding scale insulin ordered Continue holding Ezetimibe and sitagliptin Will restart Januvia (5) CHF (congestive heart failure): Qualifiers: Heart failure chronicity: acute on chronic Heart failure type: right-sided Qualified Code(s): I50.813 - Acute on chronic right heart failure Code(s): I50.9 - Heart failure, unspecified Status: Acute Assessment and Plan: 02/12/24: Last echo reviewed from 12/25/2022 which shown normal LV systolic function with an estimated EF of greater than 70%, mild aortic valve stenosis. monitor daily intake and output Lasix restarted Time Spent With Patient Time with patient: 25 - 35 minutes Subjective Date/time seen: 02/12/24 09:31 Interval history: Interval history: This is an 88-year-old female who presented to the hospital on 02/09/2024 for evaluation after a ground level fall. Workup in the hospital included hip and pelvis x-ray which showed mild osteoarthritis the hip, and old healed fracture of the proximal right femur with internal fixation, severe lumbar spondylosis. Lumbar spine x-ray showed severe lumbar spondylosis, thoracolumbar dextroscoliosis. Initial labs showed a normal white blood cell count of 5.7 sodium 136, creatinine 2.1, EGFR 22. UA was obtained and showed 3+ glucose, 1+ urine blood, 3+ leukocytes, 3-5 urine RBC, greater than 100 urine WBC, 4+ urine bacteria. Urine culture showing Klebsiella aerogenes on final read. She was started on Rocephin which we will switch over to cefdinir today as she was pansensitive. Last echo was reviewed from 12/25/2022 and showed normal LV systolic function with an estimated EF of greater than 70, mild aortic valve stenosis. PT and OT have been working with her from their last visit with her recommending skilled PT and OT. Patient lives at the [facility] in the assisted living side. Case coordination is following. 02/12/24: Patient denies. Patient endorses. Review of Systems Review of Systems: All systems reviewed & are unremarkable except as noted in HPI and below Constitutional: Constitutional: Reports as per HPI and Reports no additional constitutional complaints Eyes: Eyes: Reports as per HPI and Reports no additional eye complaints ENT: Reports system reviewed and no additional complaints, except as documented and Reports as per HPI Cardiovascular: Cardiovascular: Reports as per HPI and Reports no additional cardiovascular compl
[2024-02-12 10:22] LABS: Basophils Absolute Auto 0.1 K/mm3 (0.0-0.1); Basophils Percent Auto 0.7 % (0.2-1.2); Eosinophils Absolute Auto 0.6 K/mm3 (0-0.3); Eosinophils Percent Auto 8.2 % (0-4.4); Hematocrit 35.1 % (37.0-47.0); Hemoglobin 11.5 g/dL (12.0-15.0); Immature Granulocyte Absolute 0.02 K/mm3 (0.00-0.031); Immature Granulocyte Percent A 0.3 % (0-0.5); Lymphocytes Absolute Auto 1.02 K/mm3 (0.9-3.2); Lymphocytes Percent Auto 15.2 % (18.3-44.2); Mean Corpuscular HGB Conc 32.8 g/dl (32-36); Mean Corpuscular Hemoglobin 32.5 pg (26-34); Mean Corpuscular Volume 99.2 fl (80-100); Mean Platelet Volume 9.3 fl (7.4-10.4); Monocytes Absolute Auto 0.3 K/mm3 (0.1-0.6); Monocytes Percent Auto 5.1 % (2.6-8.5); Neutrophils Absolute Auto 4.7 K/mm3 (1.3-6.7); Neutrophils Percent Auto 70.5 % (45.5-73.1); Platelet Count Result 141 k/mm3 (150-375); Red Blood Count 3.54 M/mm3 (4.2-5.4); Red Cell Distribution Width 13.2 % (11.5-14.5); White Blood Count 6.7 K/mm3 (4.5-10.0)
[2024-02-12 10:29] LABS: Alanine Aminotransferase 16 U/L (6-35); Albumin Level 3.6 g/dL (3.5-5.1); Alkaline Phosphatase 67 U/L (38-126); Anion Gap 10 mmol/L (4-12); Aspartate Amino Transferase 27 U/L (14-36); Bilirubin,Total 0.4 mg/dL (0.2-1.3); Blood Urea Nitrogen 35 mg/dL (7-17); Calcium 8.7 mg/dL (8.4-10.2); Carbon Dioxide 21 mmol/L (22-30); Chloride 107 mmol/L (98-107); Estimated CRCL calculation 38 ml/min; Estimated Glomerular Filt Rate 59; Glucose 212 mg/dL (65-110); Sodium 138 mmol/L (137-145)
[2024-02-12] MEDS: EZETIMIBE 10 MG TABLET PO (10:49)
[2024-02-12] MEDS: SITagliptin PHOSPHATE 100 MG TABLET PO (10:49)
[2024-02-12] MEDS: FUROSEMIDE 20 MG TABLET PO (10:49)
[2024-02-12 11:57] LABS: Glucose Point of Care 126 mg/dl (65-105)
--- NOTE | 2024-02-12 12:46 | PM.DS ---
DS: Admitting Diagnosis Discharge Date 02/12/24 Admitting Diagnosis Fall Urinary tract infection Acute kidney injury superimposed on chronic kidney disease Severe pulmonary hypertension Diabetes mellitus CHF DS: Discharge Diagnosis Discharge Diagnosis (1) Fall: Qualifiers: Encounter type: initial encounter Qualified Code(s): W19.XXXA - Unspecified fall, initial encounter Code(s): W19.XXXA - Unspecified fall, initial encounter Status: Acute (2) Urinary tract infection: Code(s): N39.0 - Urinary tract infection, site not specified Status: Acute (3) Acute kidney injury superimposed on CKD: Code(s): N17.9 - Acute kidney failure, unspecified; N18.9 - Chronic kidney disease, unspecified Status: Acute (4) Diabetes mellitus: Code(s): E11.9 - Type 2 diabetes mellitus without complications Status: Acute (5) CHF (congestive heart failure): Qualifiers: Heart failure chronicity: acute on chronic Heart failure type: right-sided Qualified Code(s): I50.813 - Acute on chronic right heart failure Code(s): I50.9 - Heart failure, unspecified Status: Acute DS: Summary Hospital Course Reason for hospitalization: Fall Urinary tract infection Acute kidney injury superimposed on chronic kidney disease Severe pulmonary hypertension Diabetes mellitus CHF Hospital Course: This is an 88-year-old female who presented to the hospital on 02/09/2024 for evaluation after a ground level fall. Workup in the hospital included hip and pelvis x-ray which showed mild osteoarthritis the hip, and old healed fracture of the proximal right femur with internal fixation, severe lumbar spondylosis. Lumbar spine x-ray showed severe lumbar spondylosis, thoracolumbar dextroscoliosis. Initial labs showed a normal white blood cell count of 5.7 sodium 136, creatinine 2.1, EGFR 22. UA was obtained and showed 3+ glucose, 1+ urine blood, 3+ leukocytes, 3-5 urine RBC, greater than 100 urine WBC, 4+ urine bacteria. Urine culture showing Klebsiella aerogenes on final read. She was started on Rocephin which we will switch over to cefdinir today as she was pansensitive. Last echo was reviewed from 12/25/2022 and showed normal LV systolic function with an estimated EF of greater than 70, mild aortic valve stenosis. PT and OT have been working with her from their last visit with her recommending skilled PT and OT. Patient lives at the [facility] in the assisted living side. Patient is stable for discharge at this time. She was started on Cefdinir. She will need to follow up with PCP in 1 week. WOLFGANG resolved. Creatinine 0.90. Patient refused outpatient PT and OT even though recommended to her. Final diagnosis: Fall, UTI, acute kidney injury superimposed on chronic kidney disease. Status at Discharge Cognitive/behavioral status at discharge: alert and oriented x4 Functional status at discharge: uses cane/walker Overall status at discharge: patient is progressing back to baseline Time Spent with Patient Time attestation: Total time spent providing and/or coordinating discharge services: Time spent: Greater than 30 minutes Exam Narrative: General: In no acute distress, well nourished Cardiac: Normal S1 and S2. No murmur, gallops or friction rubs, peripheral pulses intact. Respiratory: Lungs clear to auscultation, no adventitious lung sounds, currently on room air Gastrointestinal: soft, non-distended, non-tender, normoactive bowel sounds. : voiding without difficulty. Extremities: moves all extremities well, no edema Skin: clean, dry, intact. No wounds or lesions. Neuro: Alert and oriented x4, cranial nerves intact, no neuro deficits. Psych: normal mood, normal affect, interactive DS: Data Data Completed and Pending Completed studies during hospitalization: Lumbar spine x-ray Hip/pelvis x-ray Pending studies at discharge: None Labs on day of discharge: Labs from last 24
[2024-02-12 14:00] VITALS: BP 140/76; PULSE 89; RESP 16; TEMP 36.3; O2SAT 97
== END 2024-02-12 14:40 | DRG 683 ==
LOC: ANHED 20:03 → ANH3MEDSUR 23:52
PROVIDERS: Nurse Practitioner; Admitting Provider Internal Medicine; Emergency Provider Emergency Medicine; PCP Family Medicine; Visit Provider Nurse Practitioner Acute Care
DX: N17.9 Acute kidney failure, unspecified (principal); I13.0 Hypertensive heart and chronic kidney disease with heart failure and stage 1 through stage 4 chronic kidney disease, or unspecified chronic kidney disease; N39.0 Urinary tract infection, site not specified; I50.32 Chronic diastolic (congestive) heart failure; E11.22 Type 2 diabetes mellitus with diabetic chronic kidney disease; N18.30 Chronic kidney disease, stage 3 unspecified; K21.9 Gastro-esophageal reflux disease without esophagitis; I73.9 Peripheral vascular disease, unspecified; M17.0 Bilateral primary osteoarthritis of knee; M47.816 Spondylosis without myelopathy or radiculopathy, lumbar region; M16.0 Bilateral primary osteoarthritis of hip; W18.39XA Other fall on same level, initial encounter; E11.42 Type 2 diabetes mellitus with diabetic polyneuropathy; D64.9 Anemia, unspecified; I48.0 Paroxysmal atrial fibrillation; I35.0 Nonrheumatic aortic (valve) stenosis; Z53.29 Procedure and treatment not carried out because of patient's decision for other reasons; Z89.422 Acquired absence of other left toe(s); Z90.49 Acquired absence of other specified parts of digestive tract; Z98.42 Cataract extraction status, left eye; Z98.41 Cataract extraction status, right eye; Z90.710 Acquired absence of both cervix and uterus; Z95.820 Peripheral vascular angioplasty status with implants and grafts
CPT/HCPCS: 36415; 72100; 73502; 80053; 81001; 82948; 83690; 83735; 85025; 87086; 87186; 96361; 96365; 96375; 97161; 97165; 99285; A9270; G0378; J0696; J1644; J1815; J2405; J7030

== ENCOUNTER 2024-03-22 16:44 | Outpatient (CLI) | payer MEDICARE, SELFPAY ==
[2024-03-22 17:04] LABS: Basophils Absolute Auto 0.1 K/mm3 (0.0-0.1); Basophils Percent Auto 0.8 % (0.2-1.2); Eosinophils Absolute Auto 0.3 K/mm3 (0-0.3); Eosinophils Percent Auto 4.5 % (0-4.4); Hematocrit 37.3 % (37.0-47.0); Immature Granulocyte Absolute 0.02 K/mm3 (0.00-0.031); Immature Granulocyte Percent A 0.3 % (0-0.5); Lymphocytes Percent Auto 27.5 % (18.3-44.2); Mean Corpuscular HGB Conc 32.2 g/dl (32-36); Mean Corpuscular Hemoglobin 32.7 pg (26-34); Mean Corpuscular Volume 101.6 fl (80-100); Monocytes Absolute Auto 0.4 K/mm3 (0.1-0.6); Monocytes Percent Auto 6.3 % (2.6-8.5); Neutrophils Absolute Auto 3.8 K/mm3 (1.3-6.7); Neutrophils Percent Auto 60.6 % (45.5-73.1); Platelet Count Result 167 k/mm3 (150-375); Red Blood Count 3.67 M/mm3 (4.2-5.4); Red Cell Distribution Width 13.4 % (11.5-14.5); White Blood Count 6.2 K/mm3 (4.5-10.0)
[2024-03-22 17:16] LABS: Iron 72 ug/dL (37-170)
[2024-03-22 17:27] LABS: Percent Iron Saturation 21 % (20-50)
== END 2024-03-22 16:45 | disposition home or self-care (01) ==
LOC: ANHLAB 16:48
PROVIDERS: Student in an Organized Health Care Education/Training Program; PCP Family Medicine; Visit Provider Family Medicine
DX: D64.9 Anemia, unspecified (principal); I10 Essential (primary) hypertension; K92.1 Melena
CPT/HCPCS: 36415; 82728; 83540; 83550; 85025

== ENCOUNTER 2024-04-05 15:54 | Outpatient (CLI) | payer MEDICARE, SELFPAY ==
--- NOTE | ~2024-04-05 | XR_ITS ---
EXAMINATION: XR wrist RT 2V DATE: 04/05/2024 16:55 INDICATION: Right wrist pain. TECHNIQUE: 2 views of right wrist were obtained. COMPARISON: None. FINDINGS: Alignment is normal. No fracture. Osteopenia is noted. There is moderate osteoarthritis of first carpometacarpal joint. There are erosions versus subchondral cysts in capitate, scaphoid, and l unate with relatively preserved joint spaces. There are loose bodies in the radiocarpal compartment, midcarpal compartment, and first carpometacarpal joint. IMPRESSION: 1. Erosions versus subchondral cysts in capitate, scaphoid, and lunate with relatively preserved join t spaces, which may be osteoarthritis or inflammatory arthropathy such as gout. 2. Moderate osteoarthritis of first carpometacarpal joint. 3. Loose bodies in the wrist. Reviewed, dictated and finalized at location A. IMPRESSION: 1. Erosions versus subchondral cysts in capitate, scaphoid, and lunate with rel atively preserved joint spaces, which may be osteoarthritis or inflammatory art hropathy such as gout. 2. Moderate osteoarthritis of first carpometacarpal joint. 3. Loose bodies in the wrist.
[2024-04-05 16:38] LABS: Hematocrit 37.6 % (37.0-47.0); Hemoglobin 12.6 g/dL (12.0-15.0)
[2024-04-05 17:00] LABS: Iron 35 ug/dL (37-170)
[2024-04-05 17:02] LABS: Hemoglobin A1C 6.1 % (<5.7)
[2024-04-05 17:07] LABS: Erythrocyte Sedimentation Rate 58 mm/hr (0-20)
[2024-04-05 17:08] LABS: Alanine Aminotransferase 19 U/L (6-35); Albumin Level 4.3 g/dL (3.5-5.1); Alkaline Phosphatase 72 U/L (38-126); Anion Gap 11 mmol/L (4-12); Aspartate Amino Transferase 39 U/L (14-36); Bilirubin,Total 0.5 mg/dL (0.2-1.3); Blood Urea Nitrogen 50 mg/dL (7-17); CRP 7.4 mg/dL (<1.0); Calcium 9.3 mg/dL (8.4-10.2); Carbon Dioxide 29 mmol/L (22-30); Chloride 92 mmol/L (98-107); Estimated Glomerular Filt Rate 36; Glucose 141 mg/dL (65-110); Sodium 132 mmol/L (137-145); Uric Acid 5.6 mg/dL (2.5-7.5)
[2024-04-05 17:10] LABS: Percent Iron Saturation 12 % (20-50)
[2024-04-05 17:25] LABS: Thyroid Stimulating Hormone 0.955 uIU/mL (0.465-4.680)
[2024-04-07 08:19] LABS: ANA Cascade Screen NEGATIVE (NEGATIVE)
== END 2024-04-05 15:55 | disposition home or self-care (01) ==
PROVIDERS: PCP Family Medicine; Visit Provider Student in an Organized Health Care Education/Training Program
DX: M24.031 Loose body in right wrist (principal); M18.11 Unilateral primary osteoarthritis of first carpometacarpal joint, right hand; D64.9 Anemia, unspecified; I12.9 Hypertensive chronic kidney disease with stage 1 through stage 4 chronic kidney disease, or unspecified chronic kidney disease; N18.32 Chronic kidney disease, stage 3b; E11.22 Type 2 diabetes mellitus with diabetic chronic kidney disease; E11.65 Type 2 diabetes mellitus with hyperglycemia; K92.2 Gastrointestinal hemorrhage, unspecified; M10.9 Gout, unspecified; R53.81 Other malaise; R53.83 Other fatigue; E03.9 Hypothyroidism, unspecified; Z79.4 Long term (current) use of insulin
CPT/HCPCS: 36415; 73100; 80053; 82728; 83036; 83540; 83550; 84443; 84550; 85014; 85018; 85652; 86038; 86140; 86225; 86235; 86364

== ENCOUNTER 2025-02-07 15:54 | Emergency (ER) | payer MEDICARE, SELFPAY ==
--- NOTE | ~2025-02-07 | XR_ITS ---
EXAM/PROCEDURE: XR chest 1V - 02/07/2025 17:25 CDT HISTORY: 89 years old Female with subjective fever TECHNIQUE: Two view(s) of the chest. COMPARISON: None available. FINDINGS: LUNGS/ PLEURA: No focal consolidation. No appreciable pneumothorax or large pleural effusion. HEART/ MEDIASTINUM: Heart appears normal in size. BONES: Degenerative changes. OTHER: Visualized upper abdomen is unremarkable. IMPRESSION: No acute process. Reviewed, dictated and finalized at location A. IMPRESSION: No acute process.
[2025-02-07 15:56] VITALS: BP 153/61; PULSE 66; RESP 16; TEMP 36.4; O2SAT 99
--- OUTSIDE RECORDS SUMMARY | 2025-02-07 15:56 | XMS_ITS | Encounter Summary ---
Author Organization [facility] Address [address] [place] [address] Care Team Providers Care Cytogeneticist Name Role Phone Kobi Watkins MD Primary Care Provider [phone]- [phone] Kobi Watkins MD Primary Care Provider +- [phone] Kobi Watkins MD Primary Care Provider +- [phone] Kobi Watkins MD Primary Care Provider + [phone] Kobi Watkins MD Primary Care Provider [phone]- [phone] Molly Fagan MD Primary Care Provider Jaye Smiley MD Unavailable [phone] Iliana Evans Primary Care Provide r Encounter Details Date Type Department Care Team (Late st Contact Info) Description 10/25/2014 Orders Only [facility] Health Information Management [address] [place] [address] Scanning, Provider Social History Tobacco Use Types Packs/Day Years Used Date Smoking Tobacco: Never Assessed Comments Unknown Sex and Gender Information Value Date Recorded Sex Assigned at Not on file 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 Gender Identity Not on file Sexual Orientation Not on file documented as of this encounter Plan of Treatment Not on file documented as of this encounter Procedures Procedure Name Priority Date/Time Associated Diagnosis Comments GI - RESULT 10/25/2014 documented in this encounter Results * GI - RESULT (10/25/2014) Anatomical Region Laterality Modality Other us Provider Scanning Final Result documented in this encounter Visit Diagnoses Not on filedocumented in this encounter Care Teams Cytogeneticist Relationship Specialty Start Date End Date Kobi Watkins MD PCP - General 10/29/16 05/05/22 Kobi Watkins MD PCP - General 10/12/16 10/28/16 Kobi Watkins MD PCP - General 04/21/15 10/11/16 Kobi Watkins MD PCP - General 12/03/14 04/20/15 Kobi Watkins MD PCP - General 10/01/14 12/02/14 Molly Fagan MD [address] [place] [address] PCP - General Family Medicine 05/06/22 12/16/24 Iliana Evans PA [address] [place] [address] PCP - General Physician Bull Wheel Worker 12/17/24 Jaye Smiley MD [address] [facility] [address] [place] [address] Referring Physician Nephrology 04/07/23 documented as of this encounter
--- OUTSIDE RECORDS SUMMARY | 2025-02-07 15:56 | XMS_ITS | Encounter Summary ---
Author Organization [facility] Address [address] [place] [id number] Care Team Providers Care Senior Training Specialist Name Role Phone Kobi Watkins MD Primary Care Provider [phone]- [phone] oKbi Watkins MD Primary Care Provider +- [phone] Kobi Watkins MD Primary Care Provider [phone]- [phone] Molly Fagan MD Primary Care Provider Jaye Smiley MD Unavailable [phone] Iliana Evans Primary Care Provide r Encounter Details Date Type Department Care Team (Late st Contact Info) Description 10/05/2016 Orders Only [facility] ProviderGregory MD [address] [place] [id number] Social History Tobacco Use Types Packs/Day Years Used Date Smoking Tobacco: Never Alcohol Use Standard Drinks/Week Comments No 0 (1 standard drink = 0.6 oz pur e alcohol) Comments Unknown Sex and Gender Information Value Date Recorded Sex Assigned at Not on file 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 us Historical Provider [facility] IN[facility]O [facility] Final Result documented in this encounter Visit Diagnoses Not on filedocumented in this encounter Care Teams Senior Training Specialist Relationship Specialty Start Date End Date Kobi Watkins MD PCP - General 10/29/16 05/05/22 Kobi Watkins MD PCP - General 10/12/16 10/28/16 Kobi Watkins MD PCP - General 04/21/15 10/11/16 Molly Fagan MD [address] [facility] [address] [place] [address] PCP - General Family Medicine 05/06/22 12/16/24 Iliana Evans PA [address] [facility] [address] [place] [address] PCP - General Physician Locks Tender 12/17/24 Jaye Smiley MD [facility] [id number] Referring Physician Nephrology 04/07/23 documented as of this encounter
--- OUTSIDE RECORDS SUMMARY | 2025-02-07 15:56 | XMS_ITS | Patient Health Record ---
Author Organization [facility] Address [address] [facility] [address] [place], [place] [address] Care Team Providers Care Plant Guard Name Role Phone Kobi Watkins Primary Care Provider Unavailab Alirio Liriano Unavailable [phone] Allergies Allergen (clinical drug ingredient) Drug/Non Drug Allergy documented on EMR Reaction Allergy Type Onset Date Status Vaccine product containing Influenza virus antigen (medicinal product) Flu Shot (uncoded) Unknown Allergy Ac tive phenobarbital Phenobarbital (uncoded) Unknown Allergy Active Reason For Referral No Information Medications Medication SIG (Take, Route, Frequency, Duration) Notes Start Date End Date Status Montelukast Sodium 10 MG 1 tablet Orally Once a day Not-Taking Ondansetron 4 MG 1 tablet on the tongue and allow to dissolve Orally Once a day Not-Taking OrthoVisc 30 MG/2ML 3 weeks Intra-articular once weekly injection for her knees Not-Taking amLODIPine Besylate 5 MG 1 tablet Orally Once a day Not-Taking Loperamide HCl 2 MG 1 tablet Orally 2 tablets after the first stool then 1 tab as needed Active carBAMazepine 200 MG 1 tablet Orally three times a day Not-Taking Ezetimibe 10 MG 1 tablet Orally Once a day Not-Taking traZODone HCl 50 MG 1 tablet Orally every day Active fluticasone nasal spray spray as needed Active Metoprolol Succinate ER 25 mg 1 tablet Orally twice a day Active Benadryl Allergy 25 MG 1 capsule at bedtime as needed Orally Once a day for 30 day(s) Active Januvia 100 MG 1 tablet Orally Once a day Active Omeprazole 20 MG 1 tablet Orally Once a day Active Simvastatin 40 MG 1 tablet in the evening Orally Once a day Active Furosemide 40 MG 1 tablet Orally Once a day Active Ferrous Sulfate 325 (65 Fe) MG 1 tablet Orally twice a day Active Meclizine HCl 12.5 MG 1 tablet Orally twice a day Active PARoxetine HCl 40 MG 1 tablet in the morning Orally Once a day Active Magnesium Oxide 400 MG 1 tablet as needed Orally Once a day Active Singulair 10 MG 1 tablet in the evening Orally Once a day Not-Taking Zetia 10 MG 1 tablet Orally Once a day Not-Taking Aspirin Adult Low Dose 81 MG 1 tablet Orally Once a day for 30 day(s) Active Allergy Relief Not-T aking Tylenol 325 MG 1 tablet as needed Orally every 4 hrs Active metFORMIN HCl 1000 MG 1 tablet with meals Orally Once a day Not-Taking Social History Alcohol: Question Answer Notes Did you have a drink containing alcohol in the p ast year? 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) Active confirmed Low Problem 33797378 Type 2 diabetes mellitus with diabetic chronic kidney disease (E11.22) Active confirmed Problem 58932143 UTI (urinary tract infection) (N39.0) Active confirmed Problem 3858911 Secondary diabetes mellitus with renal manifestations, not stated as uncontrolled, 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) Active confirmed Low Problem 87210160 Type I (juvenile type) diabetes mellitus without mention of complication, not stated as uncontrolled (E10.9) Active confirmed Low Problem 90451888 Urinary tract infection without hematuria, site unspecified (N39.0) Active confirmed Problem 882054512 Stage 3a chronic kidney disease (N18.31) Active confirmed renal function slightly worse with creatinine 1.47 on 02/16 and it was 1.36 on 10/30/21 Plan Of Treatment Pending Test Test Name Order Date Ultrasound : Kidneys, bilate ral and urinary bladder with post void residual 09/05/2014 PTH, Intact 12/11/2015 random urine protein to creatinine ratio 03/11/2016 random urine protein to creatinine ratio 08/05/2016 random urine protein to creatinine ratio 07/03/2015 random urine protein to creatinine ratio 08/21/2015 random urine protein to creatinine ratio 11/13/2015 random urine protein to creatinine ratio 12/12/2014 random urine protein to creatinine ratio 03/27/2015 random urine protein to creatinine ratio 09/05/2014 random urine protein to creatinine ratio 06/15/2021 *CBC (INCLUDES DIFF/PLT) 06/30/2017 *CBC (INCLUDES DIFF/PLT) 08/04/2017 *CBC (INCLUDES DIFF/PLT) 02/09/2018 *CBC (INCLUDES DIFF/PLT) 06/08/2018 *CBC (INCLUDES DIFF/PLT) 09/14/2018 *CBC (INCLUDES DIFF/PLT) 04/05/2019 *CBC (INCLUDES DIFF/PLT) 07/13/2019 *CBC (INCLUDES DIFF/PLT) 08/10/2019 *CBC (INCLUDES DIFF/PLT) 03/27/2015 *CBC (INCLUDES DIFF/PLT) 12/12/2014 *CBC (INCLUDES DIFF/PLT) 12/21/2019 *CBC (INCLUDES DIFF/PLT) 03/26/2021 *CBC (INCLUDES DIFF/PLT) 07/10/2021 *CBC (INCLUDES DIFF/PLT) 11/05/2021 *CBC (INCLUDES DIFF/PLT) 11/13/2015 *CBC (INCLUDES DIFF/PLT) 12/11/2015 *CBC (INCLUDES DIFF/PLT) 08/21/2015 *CBC (INCLUDES DIFF/PLT) 07/03/2015 *CBC (INCLUDES DIFF/PLT) 08/05/2016 *CBC (INCLUDES DIFF/PLT) 11/11/2016 *CBC (INCLUDES DIFF/PLT) 02/10/2017 URINALYSIS REFLEX 11/11/2016 *PROTEIN, TOTAL W/CREAT, RANDOM URINE *PROTEIN, TOTAL W/CREAT, RANDOM URINE *RENAL FUNCTION PANEL 03/27/2015 *RENAL FUNCTION PANEL 11/05/2021 *RENAL FUNCTION PANEL 07/10/2021 *RENAL FUNCTION PANEL 03/26/2021 *RENAL FUNCTION PANEL 12/21/2019 *RENAL FUNCTION PANEL 12/12/2014 *RENAL FUNCTION PANEL 12/11/2015 *RENAL FUNCTION PANEL 11/13/2015 *RENAL FUNCTION PANEL 07/03/2015 *RENAL FUNCTION PANEL 08/21/2015 *RENAL FUNCTION PANEL 11/11/2016 *RENAL FUNCTION PANEL 02/10/2017 *RENAL FUNCTION PANEL 08/05/2016 *RENAL FUNCTION PANEL 08/10/2019 *RENAL FUNCTION PANEL 07/13/2019 *RENAL FUNCTION PANEL 04/05/2019 *RENAL FUNCTION PANEL 09/14/2018 *RENAL FUNCTION PANEL 06/08/2018 *RENAL FUNCTION PANEL 02/09/2018 *RENAL FUNCTION PANEL 08/04/2017 RENAL FUNCTION PANEL W/O eGFR 06/30/2017 random urine for protein to creatine rat io 09/26/2020 random urine for protein to creatine rat io 02/25/2022 Urinalysis, with Reflex to Microscopic 0 03/27/2015 CBC 02/25/2022 CBC 03/11/2016 Renal Panel 03/11/2016 CBC With Auto Diff 09/26/2020 Urinalysis Reflex to Culture 03/11/2016 Urinalysis Reflex to Culture 08/05/2016 Urinalysis Reflex to Culture 02/10/2017 Urinalysis Reflex to Culture 11/13/2015 Urinalysis Reflex to Culture 12/11/2015 Urinalysis Reflex to Culture 08/04/2017 Urinalysis, with Microscopic 09/05/2014 Urinalysis, with Microscopic 12/12/2014 HEMOGLOBIN A1C 07/01/2021 Urinalysis Reflex to Culture 08/21/2015 Urinalysis Reflex to Culture 07/03/2015 CBC 09/05/2014 renal function panel 02/25/2022 renal function panel 09/26/2020 Renal Panel 09/05/2014 Prot/Creat Ur Rnd 03/26/2021 Prot/Creat Ur Rnd 02/10/2017 Prot/Creat Ur Rnd 11/11/2016 Prot/Creat Ur Rnd 06/30/2017 Prot/Creat Ur Rnd 02/09/2018 Prot/Creat Ur Rnd 07/13/2019 Prot/Creat Ur Rnd 08/10/2019 *CBC (INCLUDES DIFF/PLT) 05/29/2020 *RENAL FUNCTION PANEL 05/29/2020 *CBC (INCLUDES DIFF/PLT) 11/26/2020 *RENAL FUNCTION PANEL 11/26/2020 Prot/Creat Ur Rnd 11/26/2020 Future Test Test Name Order Date random urine for protein to creatine rat io 04/27/2022 CBC 04/27/2022 renal function panel 04/27/2022 Insurance Providers Payer Name Payer Address Payer Phone Subscriber Number Group Number Insured Name Patient Relationship to Insured Coverage Start Date Coverage End Date Medicare Complete HMO [address] [address] [place] [address] [id number] Elizabeth Villegas Self - patient is the insured Medical (General) History Medical History History ICD Code Hypertension, Type 2 diabetes, Hyperlipi demia, Anemia, Leg edema
--- OUTSIDE RECORDS SUMMARY | 2025-02-07 15:56 | XMS_ITS | Encounter Summary ---
Author Organization [facility] Address [address] [facility] [address] [place] [address] Care Team Providers Care Hot Stick Man Name Role Phone Kobi Watkins MD Primary Care Provider [phone]- [phone] Kobi Watkins MD Primary Care Provider [phone]- [phone] Kobi Watkins MD Primary Care Provider [phone]- [phone] Kobi Watkins MD Primary Care Provider [phone]- [phone] Molly Fagan MD Primary Care Provider Jaye Smiley MD Unavailable [phone] Iliana Evans Primary Care Provide r Encounter Details Date Type Department Care Team (Late st Contact Info) Description 01/21/2015 Orders Only [facility] Health Information Management [address] [place] [address] Scanning, Provider Social History Tobacco Use Types Packs/Day Years Used Date Smoking Tobacco: Never Assessed Comments Unknown Sex and Gender Information Value Date Recorded Sex Assigned at Not on file 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 Gender Identity Not on file Sexual Orientation Not on file documented as of this encounter Plan of Treatment Not on file documented as of this encounter Procedures Procedure Name Priority Date/Time Associated Diagnosis Comments SCAN - LABS 01/21/2015 documented in this encounter Results * SCAN - LABS (01/21/2015) us Provider Scanning Final Result documented in this encounter Visit Diagnoses Not on filedocumented in this encounter Care Teams Hot Stick Man Relationship Specialty Start Date End Date Kobi Watkins MD PCP - General 10/29/16 05/05/22 Kobi Watkins MD PCP - General 10/12/16 10/28/16 Kobi Watkins MD PCP - General 04/21/15 10/11/16 Kobi Watkins MD PCP - General 12/03/14 04/20/15 Molly Fagan MD [address] [place] [address] PCP - General Family Medicine 05/06/22 12/16/24 Iliana Evans PA [address] [place] [address] PCP - General Physician Beadworker 12/17/24 Jaye Smiley MD [address] [facility] [address] [place] [address] Referring Physician Nephrology 04/07/23 documented as of this encounter
--- OUTSIDE RECORDS SUMMARY | 2025-02-07 15:56 | XMS_ITS | Encounter Summary ---
Author Organization [facility] Address [address] [facility] [address] [place] [address] Care Team Providers Care Pole Classifier Name Role Phone Kobi Watkins MD Primary Care Provider [phone]- [phone] Kobi Watkins MD Primary Care Provider [phone]- [phone] Molly Fagan MD Primary Care Provider Jaye Smiley MD Unavailable [phone] Iliana Evans Primary Care Provide r Encounter Details Date Type Department Care Team (Late st Contact Info) Description 10/19/2016 Orders Only [facility] ProviderGregory MD [address] [place] [address] Social History Tobacco Use Types Packs/Day Years Used Date Smoking Tobacco: Never Alcohol Use Standard Drinks/Week Comments No 0 (1 standard drink = 0.6 oz pur e alcohol) Comments Unknown Sex and Gender Information Value Date Recorded Sex Assigned at Not on file 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 Historical Provider [facility] Final Result documented in this encounter Visit Diagnoses Not on filedocumented in this encounter Care Teams Pole Classifier Relationship Specialty Start Date End Date Kobi Watkins MD PCP - General 10/29/16 05/05/22 Kobi Watkins MD PCP - General 10/12/16 10/28/16 Molly Fagan MD [address] [facility] [address] [place] [address] PCP - General Family Medicine 05/06/22 12/16/24 Iliana Evans PA [address] [facility] [address] [place] [address] PCP - General Physician Waiver Analyst 12/17/24 Jaye Smiley MD [facility] [address] [place] [address] Referring Physician Nephrology 04/07/23 documented as of this encounter
--- OUTSIDE RECORDS SUMMARY | 2025-02-07 15:56 | XMS_ITS | Encounter Summary ---
Author Organization [facility] Address [address] [facility] [address] [facility] [address] [place] [address] Care Team Providers Care Circulation Man Name Role Phone Kobi Watkins MD Primary Care Provider [phone]- [phone] Kobi Watkins MD Primary Care Provider +- [phone] Kobi Watkins MD Primary Care Provider +- [phone] Kobi Watkins MD Primary Care Provider + [phone] Kobi Watkins MD Primary Care Provider +- [phone] Kobi Watkins MD Primary Care Provider [phone]- [phone] Molly Fagan MD Primary Care Provider Jaye Smiley MD Unavailable [phone] Iliana Evans Primary Care Provide r Encounter Details Date Type Department Care Team (Late st Contact Info) Description 03/12/[address] 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 Gender Identity Not on file Sexual Orientation Not on file documented as of this encounter Plan of Treatment Not on file documented as of this encounter Procedures Procedure Name Priority Date/Time Associated Diagnosis Comments GI - RESULT 03/12/2014 SCAN - RADIOLOGY/IMAGING 03/12/2014 SCAN - PATHOLOGY 03/12/2014 documented in this encounter Results * SCAN - PATHOLOGY (03/12/2014) us Provider Scanning Final Result * SCAN - RADIOLOGY/IMAGING (03/12/2014) Anatomical Region Laterality Modality Other us Provider Scanning Final Result * GI - RESULT (03/12/2014) Anatomical Region Laterality Modality Other us Provider Scanning Edited Result - Final documented in this encounter Visit Diagnoses Not on filedocumented in this encounter Care Teams Circulation Man Relationship Specialty Start Date End Date Kobi Watkins MD PCP - General 10/29/16 05/05/22 Kobi Watkins MD PCP - General 10/12/16 10/28/16 Kobi Watkins MD PCP - General 04/21/15 10/11/16 Kobi Watkins MD PCP - General 12/03/14 04/20/15 Kobi Watkins MD PCP - General 10/01/14 12/02/14 Kobi Watkins MD PCP - General 01/30/14 09/30/14 Molly Fagan MD [address] [place] [address] PCP - General Family Medicine 05/06/22 12/16/24 Iliana Evans PA [address] [facility] [address] [place] [address] PCP - General Physician Director Of Product Development 12/17/24 Jaye Smiley MD [address] [facility] [address] [place] [address] Referring Physician Nephrology 04/07/23 documented as of this encounter
--- OUTSIDE RECORDS SUMMARY | 2025-02-07 15:56 | XMS_ITS | Encounter Summary ---
Author Organization [facility] Health Address [address] [place] [address] Care Team Providers Care Zigzag Topstitcher Name Role Phone Kobi Watkins MD Primary Care Provider Unav ailable Jhon Riley MD Unavailable [phone] Carrol Chun RN Unavailable Unavailab Molly Fagan MD Primary Care Provider + Encounter Details Date Type Department Care Team (Late st Contact Info) Description 06/16/2016 [facility] Outpatient Visit [facility] [address] [place] [address] Jhon Riley MD [address] [address] Social History Tobacco Use Types Packs/Day Years Used Date Smoking Tobacco: Former Cigarettes Q uit: 06/1984 Smokeless Tobacco: Never Alcohol Use Standard Drinks/Week Comments No 0 (1 standard drink = 0.6 oz pur e alcohol) Comments No Sex and Gender Information Value Date Recorded Sex Assigned at Not on file Legal Sex Female 6:15 AM HOSPITALITY INTERN Gender Identity Not on file Sexual Orientation Not on file documented as of this encounter Plan of Treatment Not on file documented as of this encounter Visit Diagnoses Not on filedocumented in this encounter Care Teams Zigzag Topstitcher Relationship Specialty Start Date End Date Kobi Watkins MD PCP - General Family Medicine 06/16/16 09/09/22 Molly Fagan MD [address] [place] [address] PCP - General 09/10/22 Jhon Riley MD [address] [address] General Surgery 06/16/16 Carrol Chun, RICHARD Registered Nurse - Cardiopulmonary Rehab 08/16/16 documented as of this encounter
--- OUTSIDE RECORDS SUMMARY | 2025-02-07 15:56 | XMS_ITS | Clinical Summary ---
Author Organization [facility] Address [address] [place] [id number] Care Team Providers Care Painter Airbrush Name Role Phone Jaye Smiley MD Unavailable [phone] Iliana Evans Primary Care Provide r Allergies Active Allergy Reactions Criticality Noted Date Comments Atorvastatin Unknown 10/03/2019 Glyburide Unknown 10/03/2019 Haemophilus Influenzae Type B Swelling Medium 2015 Influenza Virus Vaccines Phenobarbital Unknown High 03/29/2019 Medications ezetimibe (ZETIA) 10 mg tablet take 1 tablet by oral route every day 0 0 4 Active SITagliptin (JANUVIA) 100 mg tablet take 1 tablet by oral route every day 0 0 5 Active simvastatin (ZOCOR) 40 mg tablet take 1 tablet by oral route every day in the evening 0 0 7 Active fluticasone (FLONASE) 50 mcg/actuation nasal spray Administer 1 spray into each nostril 2 (two) times a day 8 Active meclizine (ANTIVERT) 12.5 mg tablet Take 1 tablet (12.5 mg total) by mouth every 6 (six) hours as needed 0 Active ferrous sulfate 325 mg (65 mg of elemental iron) tabletIndication s:Iron Deficiency Anemia Take 1 tablet (325 mg total) by mouth 2 (two) times a day Active blood glucose diagnostic strip 60 each 2 (two) times a day Active magnesium oxide (MAG-OX) 400 mg (241.3 mg elemental magnesium) tabletIndication s:hypomagnesemia Take 1 tablet (400 mg total) by mouth daily Active allopurinoL (ZYLOPRIM) 100 mg tablet 3 Active colchicine (COLCRYS) 0.6 mg tablet 3 Active acetaminophen (TYLENOL) 500 mg tablet 3 Active furosemide (LASIX) 20 mg tablet 3 Active traZODone (DESYREL) 50 mg tablet Take 0.5 tablets (25 mg total) by mouth nightly Active bisacodyL (DULCOLAX) 10 mg suppository 3 Active OneTouch Ultra2 Meter misc 3 Active calcium carbonate (OS-GAYATRI) 1,500 mg (600 mg elemental) tablet calcium carbonate 600 mg calcium (1,500 mg) tablet 0 Active cholecalciferol (VITAMIN D-3) 50,000 unit capsule 3 Active magnesium citrate solution 3 Active Certavite-Antiox idant 18-400 mg-mcg tablet 3 Active nystatin cream nystatin 100,000 unit/gram topical cream 2 Active Novofine Autocover 30 gauge x 1/3 needle 3 Active metoprolol tartrate (LOPRESSOR) 50 mg immediate release tablet 3 Active BD Alcohol Swabs pads, medicated 3 Active Jardiance 25 mg tabletIndication s:Type 2 diabetes mellitus with hyperglycemia, with long-term current use of insulin (HCC) Take 1 tablet (25 mg total) by mouth daily 90 tablet 3 3 Active HumaLOG 100 unit/mL pen for injection Inject 10 Units under the skin 3 (three) times a day with meals 15 mL 11 4 Active LANTUS 100 unit/mL (3 mL) pen for injection Inject 28 Units under the skin nightly 15 mL 4 Active loperamide (IMODIUM) 2 mg capsule 4 Active omeprazole (PriLOSEC) 20 mg capsule 4 Active traMADoL (ULTRAM) 50 mg tablet 4 Active Active Problems Problem Noted Date Diagnosed Date CKD stage 3 due to type 2 diabetes mellitus 01/2023 Assessment & Plan (12/15/2023 1:56 PM CDT): Chronic problem. Managed by renal Dr Smiley at [facility]. 08/25/21 GFR=35, CR=1.37. Assessment & Plan (04/07/2023 1:48 PM CDT): Chronic problem. Managed by renal Dr Smiley at [facility]. ALEXANDER 02/07/23; NOV 06/13/23. 08/25/21 GFR=35, CR=1.37. Had labs completed 01/[address] Smiley. Will have her sign release to get copy of labs from his office and/or [facility]. Chronic kidney disease 12/02/2022 Assessment & Plan (12/02/2022 1:58 PM CDT): Chronic problem. Managed by Dr Jordi Smiley at [facility]. Next OV 02/07/23. 03/11/22 GFR=37, CR=1.40. 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 Last lipid panel: 03/11/22 LDL=72, OH=367. Will update labs today. Does not mychart. Verified phone #/address to contact re: results. Assessment & Plan (04/07/2023 1:16 PM CDT): Chronic problem, currently taking Simvastatin 40mg, zetia 10mg. Last lipid panel: 03/11/22 LDL=72, CX=886. No changes at this time. Assessment & Plan (01/25/2023 2:30 PM CDT): Chronic problem, currently taking Simvastatin 40mg, zetia 10mg. Last lipid panel: 03/11/22 LDL=72, WH=555. No changes at this time. Assessment & Plan (12/02/2022 1:01 PM CDT): Chronic problem, currently taking Simvastatin 40mg, zetia 10mg. Last lipid panel: 03/11/22 LDL=72, XL=202. No changes at this time. Assessment & Plan (11/12/2021 1:53 PM CDT): Chronic problem. On statin therapy, no changes. Assessment & Plan (03/19/2021 11:38 AM CDT): Lipid checked today Continue Simvastatin DM type 2 with diabetic peripheral neuropathy Assessment & Plan (12/15/2023 1:54 PM CDT): Chronic problem. Aware to check feet nightly & not to go barefoot. Assessment & Plan (04/07/2023 1:47 PM CDT): Chronic problem. Aware to check feet nightly & not to go barefoot. Assessment & Plan (12/28/2018 1:39 PM CDT): Foot care discussed Wearing diabetic shoes Under podiatrists' care Diabetes mellitus 09/08/2017 Assessment & Plan (12/15/2023 1:55 PM CDT): Chronic problem. A1c improved from 7.8% 08/11/23 to now 6.9%. Current medications: Januvia 100mg daily Jardiance 25 mg daily Lantus 28 units nightly Humalog 10 units three times daily with meals UTD on DM eye exam (04/2023). Will update labs today. Does not mychart. Verified phone #/address to contact re: results. Strive for regular exercise (30min most days) and diet (get at least 4-5 servings of fruit and veggies daily, avoid processed foods, increase lean protein intake and decrease carb portions as well as fruit juices, regular soda & desserts). Watch carbs and simple sugars. Check the feet daily for skin breakdown and infection. Assessment & Plan (08/11/2023 2:02 PM OCCUPATIONAL THERAPIST AIDE): Hba1c was Lab Results Component Value Date HGBA1C 7.8 08/11/2023 today, indicating acceptable DM control blood glucose level in the 120-160 range was explained Low carb diet and daily aerobic and /or resistant exercise were advised Prevention and treatment of hyypoglcyemia were discussed with the patient Blood glucose monitoring : Adjustment to medications: Increase Lantus to 28 units Increase Humalog, 10 units before meals Continue with Januvia and Jardiance. Assessment & Plan (04/07/2023 1:45 PM CDT): Chronic problem. Recent admission to hospital & rehab unit. Has had insulin regimen started. A1c has dropped from 9.4% 12/02/22 to now 6.5%. Will increase lantus to 20 units while she's on steroid taper. to monitor blood sugars; may need to slowly taper lantus back to 15 units nightly. Goal is for blood sugar to be less than 150. Current medications: Januvia 100mg daily Jardiance 25 mg daily Lantus 20 units nightly Humalog 8 units three times daily with meals Current medications: Januvia 100mg daily Jardiance 10mg daily UTD on DM eye exam. UTD on labs. Strive for regular exercise (30min most days) and diet (get at least 4-5 servings of fruit and veggies daily, avoid processed foods, increase lean protein intake and decrease carb portions as well as fruit juices, regular soda & desserts). Watch carbs and simple sugars. Check the feet daily for skin breakdown and infection. Assessment & Plan (01/25/2023 3:02 PM CDT): Chronic problem. Recent admission to hospital & rehab unit. Has had insulin regimen started. A1c has dropped from 9.4% 12/02/22 to now 6.5%. Lantus 15 units nightly & humalog 8 units TID aC has been added. Denies hypoglycemia. Not logging BS. Will start logging & bring in to her 04/07/23 appt. Reviewed red flags. Son will call if she starts to experience any lows. Current medications: Januvia 100mg daily Jardiance 10mg daily UTD on DM eye exam. UTD on labs. Strive for regular exercise (30min most days) and diet (get at least 4-5 servings of fruit and veggies daily, avoid processed foods, increase lean protein intake and decrease carb portions as well as fruit juices, regular soda & desserts). Watch carbs and simple sugars. Check the feet daily for skin breakdown and infection. Assessment & Plan (12/02/2022 2:01 PM CDT): Chronic problem. Worsening of A1c (increased from 8.0% to now 9.4%). PAP forms for Jardiance given. Son/Mrs Negron aware to fill out & sent/bring back to our office to complete. Current medications: Januvia 100mg daily Jardiance 10mg daily Will update MA/Cr today. Reports DM eye exam 2021 at [facility] in [place], [place]. Letter sent to get copy of report. Strive for regular exercise (30min most days) and diet (get at least 4-5 servings of fruit and veggies daily, avoid processed foods, increase lean protein intake and decrease carb portions as well as fruit juices, regular soda & desserts). Watch carbs and simple sugars. Check the feet daily for skin breakdown and infection. Assessment & Plan (05/13/2022 1:56 PM CDT): Hba1c was Lab Results Component Value Date HGBA1C 8.0 05/13/2022 today, indicating inadequate DM control Goal Hba1c and blood glucose explained Diet and exercise were advised Prevention and treatment of hyypoglcyemia were discussed with the patient Blood glucose monitoring : 2 x day Adjustment to medications: Stay on Januvia Start Metformin , 500 mg once a day, in the morning. Check your sugars twice a day , keep a log and bring it with you to your next office visit. , Assessment & Plan (11/12/2021 2:01 PM CDT): Chronic problem, A1c higher but she has been getting injections. Her creatinine is back to baseline so continue Januvia alone. Will aim to do foot exam next visit. Assessment & Plan (03/19/2021 11:38 AM CDT): Continue with Januvia Assessment & Plan (08/14/2020 2:20 PM OCCUPATIONAL THERAPIST AIDE): Hba1c was Lab Results Component Value Date HGBA1C 6.9 08/14/2020 today, indicating adequate DM control Goals blood sugars of 120-160 and Hba1c under 7 % was explained. 1800 calorie, consistent carb diet recommended, no more than 3-45 grams of carbs per meal, avoiding concentrated sweet drinks and rapid absorption carbs. 25-45 min daily aerobic and resistance exercise recommended Prevention and treatment of hyypoglcyemia discussed. Blood glucose monitoring with fingers sticks. call office if BG are persistently over 180 Assessment & Plan (02/07/2020 2:57 PM CDT): A1c 6.8. BG well controlled on current medication. Continue current plan. Assessment & Plan (11/08/2019 1:19 PM CDT): BG appropriate for age with FBG a little more elevated than dinner. Move metformin from breakfast to dinner. Continue Januvia. BG goals reviewed. Assessment & Plan (07/05/2019 2:12 PM OCCUPATIONAL THERAPIST AIDE): A1c 6.3 without reported hypoglycemia. Continue metformin and Januvia. Will check labs. Continue follow up with podiatry. BG and A1c goals reviewed. Assessment & Plan (06/20/2018 1:45 PM OCCUPATIONAL THERAPIST AIDE): Hba1c was Lab Results Component Value Date HGBA1C 6.6 06/20/2018 today, indicating DM control 1800 calorie, consistent carb diet recommended 25-45 min daily aerobic and resistance exercise recommended Prevention and treatment of hyypoglcyemia discussed. Blood glucose monitoring with fingers sticks 1-2 x day . Oral medications: Metformin and Januvia Assessment & Plan (02/07/2018 3:17 PM CDT): Hba1c was Lab Results Component Value Date HGBA1C 6.3 02/07/2018 today, indicating adequate DM control 1800 calorie, consistent carb diet recommended 30 min daily aerobic and resistance exercise recommended Prevention and treatment of hyypoglcyemia discussed. Blood glucose monitoring with fingers sticks 1-2 x day . Stop metformin Assessment & Plan (09/08/2017 10:58 AM OCCUPATIONAL THERAPIST AIDE): Hba1c was 5.8 today, indicating proper DM control 1800 calorie, consistent carb diet recommended 30 min daily aerobic and resistance exercise recommended Prevention and treatment of hyypoglcyemia discussed. Blood glucose monitoring with fingers sticks 2 x day . 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 They can recheck CBC at follow up to r/o sx d/t ELIECER. Assessment & Plan (11/08/2019 1:41 PM CDT): Continue current meds Assessment & Plan (07/05/2019 2:12 PM OCCUPATIONAL THERAPIST AIDE): Controlled on current medications. Continue plan. Assessment & Plan (09/08/2017 10:55 AM OCCUPATIONAL THERAPIST AIDE): Goal blood pressure is less than 140/85 Low salt diet recommended Daily aerobic exercise Continue current meds, including BELIA-I or ARB Mixed hyperlipidemia 09/08/2017 023 Assessment & Plan (02/07/2020 2:52 PM CDT): Continue statin therapy Assessment & Plan (11/08/2019 1:40 PM CDT): Continue statin therapy Assessment & Plan (07/05/2019 2:13 PM OCCUPATIONAL THERAPIST AIDE): Check lipid panel Assessment & Plan (09/08/2017 11:00 AM OCCUPATIONAL THERAPIST AIDE): Goal of treatment , LDL cholesterol less than 100 ( less than 70 in patients with history of heart attacks and / or strokes ) NonHDL cholesterol goal less than 130 ( less than 100 in patients with history of heart attacks and / or strokes ) Continue statin therapy Encounters Date Type Department Care Team Description 12/17/2024 1:00 PM CDT Office Visit [facility] [address] [place] [id number] Chandrika Miller NP Chronic diastolic heart failure (HCC) (Primary Dx); Mild aortic stenosis from Last 3 Months Surgical History Surgery Date Site/Laterality Comments OTHER SURGICAL HISTORY colon perforation: Hand Assist Laparoscopic Right Colectomy HYSTERECTOMY hysterectomy Medical History Medical History Date Comments Diabetes mellitus (HCC) Diabetes mellitus; Comments: [facility] 12/27/2013 - Hx Other Medical neuropathy; Com ments: [facility] 12/27/2013 - Hx Other Medical hyperlipidemia; Comments: [facility] 12/27/2013 - Hx Other Medical kidney problems ; Comments: [facility] 12/27/2013 - Hx Other Medical L foot ulcers; Comments: [facility] 12/27/2013 - Hx Other Medical not claustropho bic; Comments: [facility] 01/30/2014 - Hx Other Medical colon perforati on; Comments: [facility] 05/14/2015 - Diabetes mellitus (HCC) Diabetes mellitus; Comments: [facility] 05/14/2015 - Hypertension Hypertension Hyperlipidemia Hyperlipidemia; Comments: [facility] 05/14/2015 - Fracture closed, humerus Gout Family History Medical History Relation Name Comments Hypertension Father Hypertension; C ause of : Hypertension Heart disease Mother Heart disease; Cause of : Heart disease Rectal cancer Sister 1 Cancer, rectal ; Cause of : Cancer, rectal Colon cancer Sister 2 Cancer, colon; Cause of : Cancer, colon Relation Name Status Comments Father Mother Sister 1 Sister 2 Social History Tobacco Use Types Packs/Day Years Used Date Smoking Tobacco: Never Smokeless Tobacco: Never Tobacco Cessation:Counseling Given: Not Answered Alcohol Use Standard Drinks/Week Comments No 0 (1 standard drink = 0.6 oz pur e alcohol) PHQ-2 Answer Date Recorded PHQ-2 Total Score (If total score is 3 or more points, staff should administer the PHQ-9) 3 11/12/2021 Comments Unknown Sex and Gender Information Value Date Recorded Sex Assigned at Not on file Legal Sex Female 9:25 AM OCCUPATIONAL THERAPIST AIDE Gender Identity Not on file Sexual Orientation Not on file Obstetrics History Last Filed Vital Signs Vital Sign Reading Time Taken Comments Blood Pressure 142/64 12/17/2024 1:03 PM CDT Pulse 66 12/17/2024 1:03 PM CDT Temperature 35.9 C (96.7 F) 08/08/2019 1:23 PM OCCUPATIONAL THERAPIST AIDE Respiratory Rate 18 12/15/2023 1:28 PM CDT Oxygen Saturation 95% 12/17/2024 1:03 PM CDT Inhaled Oxygen Concentration - - Weight 69.4 kg (153 lb) 12/17/2024 1:03 PM CDT Height 170.2 cm (5' 7) 12/17/2024 1:03 PM CDT Body Mass Index 23.96 12/17/2024 1:03 PM CDT Plan of Treatment Health Maintenance Due Date Last Done Comments Fall Risk Assessment 1935 Osteoporosis Screening-Bone Density Scan 1935 Hepatitis B Screening 1953 Well Visit 65+ 2001 DTaP/Tdap/Td Vaccine (1 - Tdap) 01/21/2017201 7 eGFR 08/25/2022 08/25/2021, 08/01, 08/03/2021, Additional history exists Depression Screening 11/12/2022 11/12/2021, 08/14/2020, 12/28/2018, Additional history exists Lipid Panel 03/11/2023 03/11/2022, 09/01, 03/19/2021, Additional history exists Albumin Creatinine Ratio, Urine 12/08/2023 , 07/09/2019 Dilated Eye Exam 04/28/2024 04/28/2023, , 04/26/2022 Hemoglobin A1C 06/16/2024 12/15/2023, 08/01, 04/07/2023, Additional history exists Foot Exam 12/14/2024 12/15/2023, 05/0 10/2022, 08/14/2020, Additional history exists Influenza Vaccine (#1) 2025 3, 04/30/2013, 03/19/2013 Pneumococcal vaccine 65+ Completed 018, 01/25/2011, 05/01/2009 Zoster Vaccine Completed 01/19/2022, 10/30, 11/12/2011 Procedures Procedure Name Priority Date/Time Associated Diagnosis Comments POCT HEMOGLOBIN A1C Routine 12/15/2023 1 :36 PM CDT Type 2 diabetes mellitus with hyperglycemia, with long-term current use of insulin (HCC) DIABETES EYE EXAM Routine 04/28/2023 10:18 AM CDT ALBUMIN CREATININE RATIO, URINE Routine 12/07/2022 2:42 PM CDT Type 2 diabetes mellitus with hyperglycemia, without long-term current use of insulin (HCC) BASIC METABOLIC PANEL Routine 08/25/2021 1:21 PM OCCUPATIONAL THERAPIST AIDE Chronic diastolic heart failure (HCC) POCT LIPID PANEL Routine 03/19/2021 11:2 8 AM CDT Type 2 diabetes mellitus with hyperglycemia, unspecified whether medical terminologist insulin use (HCC) from Last 3 Months or Most Recently Relevant to Health Maintenance Results * (ABNORMAL) POCT hemoglobin A1c (12/15/2023 1:36 PM CDT) Hemoglobin A1C, POC 6.9 % Blood 12/15/2023 1:36 PM CDT Linette Allen NP POINT OF CARE TEST ORDERA BLES Final Result * DIABETES EYE EXAM (04/28/2023 10:18 AM CDT) Historical Provider MD HEALTH MAINTENANCE Final Result * (ABNORMAL) Albumin Creatinine Ratio, Urine (12/07/2022 2:42 PM CDT) Creatinine ur 20.3 Not Estab. mg/dL [facility] - 01 Microalbumin, ur 26.3 Not Estab. ug/mL [facility] - 01 Microalbumin/cr eat ratio 130(H) 0 - 29 mg/g creat [facility] - 01 Comment: Normal: 0 - 29 Moderately increased: 30 - 300 Severely increased: >300 Urine 12/07/2022 2:42 PM CDT 12/07/2022 Narrative [facility] - 12/08/2022 12:11 PM CDT Performed at: - [address] [id number] Data Entry Supervisor: Rob Sierra PhD, Phone: [phone] us Linette Allen NP LAB URINE ORDERABLES Tiffanie l Result [facility] * (ABNORMAL) Basic metabolic panel (08/25/2021 1:21 PM OCCUPATIONAL THERAPIST AIDE) Glucose 146(H) 65 - 99 mg/dL [facility] - 01 BUN 56(H) 8 - 27 mg/dL [facility] - 01 Creatinine, Serum 1.37(H) 0.57 - 1.00 mg/dL [facility] - 01 eGFR If NonAfricn Am 35(L) >59 mL/min/1. 73 [facility] - 01 eGFR If Africn Am 41(L) >59 mL/min/1. 73 [facility] - 01 Comment: In accordance with recommendations from the NKF-ASN Task force, [facility] is in the process of updating its eGFR calculation to the 2020 CKD-EPI creatinine equation that estimates kidney function without a race variable. BUN/creat ratio 41(H) 12 - 28 [facility] - 01 Sodium 140 134 - 144 mmol/L [facility] - 01 Potassium, sr 4.7 3.5 - 5.2 mmol/L [facility] - 01 Chloride 99 96 - 106 mmol/L [facility] - 01 CO2 27 20 - 29 mmol/L [facility] - 01 Calcium 9.6 8.7 - 10.3 mg/dL [facility] - 01 Blood specimen (specimen) 08/25/2021 1:21 PM OCCUPATIONAL THERAPIST AIDE 08/25/2021 Narrative [facility] - 08/26/2021 6:09 AM OCCUPATIONAL THERAPIST AIDE Performed at: [facility] [address] [id number] Data Entry Supervisor: Rob Sierra PhD, Phone: [phone] us Xiomara Reynolds NP LAB BLOOD ORDERABLES Final R esult [facility] - 01 * POCT lipid panel (03/19/2021 11:28 AM CDT) [facility] Signature Cholesterol, POC 152 mg/dL HDL, POC 47 mg/dL Triglycerides, POC 111 mg/dL LDL Cholesterol POC 83 mg/dL Chol/HDL Ratio, POC 3.3 Non-HDL Cholesterol, POC 106 mg/dL Capillary blood 03/19/2021 1 1:28 AM CDT us Shashank Li MD POINT OF CARE TEST ORDERABLES Fi nal Result from Last 3 Months or Most Recently Relevant to Health Maintenance Insurance [employer] [place] [address] [employer] [facility] HMO REF [employer] Advance Directives For more information, please contact: [phone] Documents on File Type Date Recorded Patient Cleaning Matron Expl anation Power of Film Technician 05/24/2024 1:13 PM Care Teams Painter Airbrush Relationship Specialty Start Date End Date Iliana Evans PA [address] [place] [address] PCP - General Physician Door Fitter 12/17/24 Jaye Smiley MD [address] [facility] [address] [place] [address] Referring Physician Nephrology 04/07/23
--- OUTSIDE RECORDS SUMMARY | 2025-02-07 15:56 | XMS_ITS | Encounter Summary ---
Author Organization [facility] Address [address] [place] [address] Care Team Providers Care Intake Rn Name Role Phone Kobi Watkins MD Primary Care Provider [phone] Kobi Watkins MD Primary Care Provider +- [phone] Kobi Watkins MD Primary Care Provider +- [phone] Kobi Watkins MD Primary Care Provider + [phone] Kobi Watkins MD Primary Care Provider +- [phone] Kobi Watkins MD Primary Care Provider [phone] Molly Fagan MD Primary Care Provider Jaye Smiley MD Unavailable [phone] Iliana Evans Primary Care Provide r Encounter Details Date Type Department Care Team (Late st Contact Info) Description 05/21/2014 Orders Only [facility] [address] [place] [address] Scanning, Provider Social History Tobacco Use Types Packs/Day Years Used Date Smoking Tobacco: Never Assessed Comments Unknown Sex and Gender Information Value Date Recorded Sex Assigned at Not on file Legal Sex Female 9:25 AM TELECOMMUNICATION EQUIPMENT REPAIRER Gender Identity Not on file Sexual Orientation Not on file documented as of this encounter Plan of Treatment Not on file documented as of this encounter Procedures Procedure Name Priority Date/Time Associated Diagnosis Comments SCAN - LABS 05/21/2014 documented in this encounter Results * SCAN - LABS (05/21/2014) us Provider Scanning Final Result documented in this encounter Visit Diagnoses Not on filedocumented in this encounter Care Teams Intake Rn Relationship Specialty Start Date End Date Kobi Watkins MD PCP - General 10/29/16 05/05/22 Kobi Watkins MD PCP - General 10/12/16 10/28/16 Kobi Watkins MD PCP - General 04/21/15 10/11/16 Kobi Watkins MD PCP - General 12/03/14 04/20/15 Kobi Watkins MD PCP - General 10/01/14 12/02/14 Kobi Watkins MD PCP - General 01/30/14 09/30/14 Molly Fagan MD [address] [place] [address] PCP - General Family Medicine 05/06/22 12/16/24 Iliana Evans PA [address] [place] [address] PCP - General Physician Metal Smelter 12/17/24 Jaye Smiley MD [address] [address] Referring Physician Nephrology 04/07/23 documented as of this encounter
--- OUTSIDE RECORDS SUMMARY | 2025-02-07 15:56 | XMS_ITS | Clinical Summary ---
Author Organization [facility] Address [address] [place] [address] Care Team Providers Care Resident Athletic Trainer Name Role Phone Jhon Riley MD Unavailable [phone] Carrol Chun RN Unavailable Unavailab Molly Gill MD Primary Care Provider + Source Comments [facility],non-owned Affiliates and Associated Physician Practices is amultiple site organization consisting of ambulatory clinics and hospital sitesin [place], [place], [place] and [place]. This disclosure is being madepursuant to the Care Everywhere program and may not contain all information available regarding this patient. Last updated 18.[facility] Allergies Active Allergy Reactions Criticality Noted Date Comments Flu Virus Vaccine Swelling Low 06/16/2016 Phenobarbital Unknown Medium 06/16/2016 SPEEDS ME UP Medications * Be aware that medications may not be up to date on this document. Alwaysverify current medications with the patient. carBAMazepine (TEGRETOL) 200 MG tablet 200 mg 3 times daily with meals 04/25/20 16 Active ezetimibe (ZETIA) 10 MG tablet Take 10 mg by mouth once daily Active glipiZIDE (GLUCOTROL) 10 MG tablet Take 10 mg by mouth daily before breakfast 04/25/20 16 Active metFORMIN (GLUCOPHAGE) 1000 MG tablet Take 1,000 mg by mouth once daily after dinner 04/28/20 16 Active metoprolol tartrate (LOPRESSOR) 25 MG tablet Take 25 mg by mouth at bedtime Reported on 06/16/2016 04/28/20 16 Active montelukast (SINGULAIR) 10 MG tablet Take 10 mg by mouth once daily 04/28/20 16 Active PARoxetine (PAXIL) 40 MG tablet 40 mg at bedtime Active simvastatin (ZOCOR) 40 MG tablet Take 40 mg by mouth at bedtime 04/27/20 16 Active SITagliptin (JANUVIA) 100 MG tablet 100 mg once daily Ac tive traZODone (DESYREL) 50 MG tablet Take 50 mg by mouth at bedtime 04/28/20 16 Active fluticasone propionate (FLONASE) 50 MCG/ACT nasal spray Hewitt 1 Hewitt into each nostril once daily 04/28/20 16 Active HYDROcodone-acetam inophen (NORCO) 10-325 MG tablet Take 1 Tab by mouth every 8 hours as needed 08/19/19 17 Active Additional Information Patient not taking.Reported on 10/20/2016 lisinopril (PRINIVIL; ZESTRIL) 20 MG tablet Take 1 Tab by mouth once daily 30 Tab 08/19/19 17 Active Additional Information Patient taking differently: 10 mgOral DAILY, Reported on 02/09/2017 iron polysaccharides (NIFEREX 150) 150 MG capsule Take 1 Cap by mouth 2 times daily after meals 08/19/19 17 Active Additional Information Patient not taking.Reported on 02/09/2017 zolpidem (AMBIEN) 5 MG tablet Take 1 Tab by mouth nightly as needed for Insomnia 08/19/19 17 Active Additional Information Patient not taking.Reported on 10/20/2016 pantoprazole EC (PROTONIX) 40 MG tablet Take 1 Tab by mouth once daily 08/19/19 17 Active Additional Information Patient not taking.Reported on 02/09/2017 insulin aspart (NOVOLOG) cartridge Inject 0-6 Units subcutaneously 3 times daily with meals Low Dose: Correction Insulin BG (mg/dL) Corrective Action LESS than 70 follow Hypoglycemic guidelines, 70-180 NO Correction insulin 181-220 GIVE 2 units of insulin 221-260 GIVE 3 units of insulin 261-300 GIVE 4 units of insulin 301-350 GIVE 5 units of insulin Greater than 350 GIVE 6 units of insulin and Notify Physician 08/19/19 17 Active Additional Information Patient not taking.Reported on 02/09/2017 ALPRAZolam (XANAX) 0.5 MG tablet Reported on 10/20/2016 08/05/19 17 Active SITagliptin (JANUVIA) 100 MG tablet Reported on 10/20/2016 Active ONETOUCH ULTRA TEST STRIPS test strip U TO CHECK BLOOD SUGAR BID. 3 09/14/19 17 Active ondansetron (ZOFRAN) 4 MG tablet 09/21/19 17 Active EUFLEXXA 20 MG/2ML prefilled syringe 10/07/19 17 Active furosemide (LASIX) 40 MG tablet Take 40 mg by mouth once daily Active omeprazole (PRILOSEC) 20 MG capsule Take 20 mg by mouth daily before breakfast Active cyanocobalamin (VITAMIN B-12) 1000 MCG tablet Take 1,000 mcg by mouth every 30 days Active meclizine (BONINE) 25 MG chew tablet Take 25 mg by mouth every 6 hours as needed for Nausea/Vomiting Active benzonatate (TESSALON) 100 MG capsule Take 100 mg by mouth every 6 hours as needed for Cough Active ketoconazole (NIZORAL) 2 % shampoo APPLY SHAMPOO TO WET HAIR, LEAVE ON FOR 3 MINUTES, THEN RINSE. DO THIS THREE TIMES WEEKLY 120 mL 2 02/09/20 18 Active Active Problems Problem Noted Date Diagnosed Date Personal history of fall 08/10/2016 Overview (08/10/2016): Fell this AM at home, tripped on house shoe. Hit front of heat Anemia 08/10/2016 Gastrointestinal bleeding 08/10/2016 Ventral hernia without obstruction or gangrene 0 08/10/2016 Family History Medical History Relation Name Comments Dementia Father Alzheimer's Disease Mother Colon Cancer after age 50 or unknown Sister Relation Name Status Comments Father Mother Sister Social History Tobacco Use Types Packs/Day Years Used Date Smoking Tobacco: Never Smokeless Tobacco: Never Alcohol Use Standard Drinks/Week Comments No 0 (1 standard drink = 0.6 oz pur e alcohol) Comments No Sex and Gender Information Value Date Recorded Sex Assigned at Not on file Legal Sex Female 6:15 AM STONE SANDBLASTER Gender Identity Not on file Sexual Orientation Not on file Last Filed Vital Signs Vital Sign Reading Time Taken Comments Blood Pressure 171/76 08/19/2016 12:08 PM STONE SANDBLASTER Pulse 78 08/19/2016 8:20 AM STONE SANDBLASTER Temperature 36.9 C (98.4 F) 08/19/2016 12:08 PM STONE SANDBLASTER Respiratory Rate 18 08/19/2016 12:08 PM STONE SANDBLASTER Oxygen Saturation 98% 08/19/2016 12:08 PM STONE SANDBLASTER Inhaled Oxygen Concentration - - Weight 73.2 kg (161 lb 6.4 oz) 10/20/2016 10:17 AM CDT Height 175.3 cm (5' 9) 10/20/2016 10:17 AM CDT Body Mass Index 23.83 10/20/2016 10:17 AM CDT Plan of Treatment Health Maintenance Due Date Last Done Comments BONE DENSITY TESTING 1936 DTAP/TDAP/TD VACCINES (1 - Tdap) 11/01/1955 PNEUMOCOCCAL VACCINE 50+ (1 of 1 - PCV) 1986 ZOSTER VACCINE (1 of 2) 1986 Respiratory Syncytial Virus (RSV) Vaccine Pt: or over 60 yrs (1 - 1-dose 75+ series) 11/01/2011 COVID-19 VACCINE ( - 2023-2 5 season) 2024 DEPRESSION SCREENING 08/01/2024 MEDICARE AWV CALENDAR YEAR 2024 HEPATITIS B VACCINE Aged Out No longe r eligible based on patient's age to complete this topic HIB VACCINE Aged Out No longer eligi ble based on patient's age to complete this topic HPV VACCINE Aged Out No longer eligi ble based on patient's age to complete this topic MENINGOCOCCAL (Group B) VACC INE SHARED DECISION-MAKING Aged Out No longer eligibl e based on patient's age to complete this topic MENINGOCOCCAL GROUPS A/C/Y/W VACCINE Aged Out No longer eligible b ased on patient's age to complete this topic Insurance MANAGED MEDICARE [facility] MANAGED MEDICARE ADV Advance Directives * Full Code (Latest Code Status on File) Date Activated Date Inactivated Comments 08/10/2016 9:42 PM 08/19/2016 5:12 PM * Full Code Date Activated Date Inactivated Comments 08/10/2016 11:31 AM 08/10/2016 9:42 PM Care Teams Resident Athletic Trainer Relationship Specialty Start Date End Date Molly Fagan MD [address] [place] [id number] PCP - General 09/10/22 Jhon Riley MD [address] [address] General Surgery 06/16/16 Carrol Chun, RN Registered Nurse - Cardiopulmonary Rehab 08/16/16
--- OUTSIDE RECORDS SUMMARY | 2025-02-07 15:56 | XMS_ITS | Referral Summary ---
Author Organization [facility] Address [address] [place] [address] Care Team Providers Care Resource Conservation Specialist Name Role Phone Jaye Smiley MD Unavailable [phone] Iliana Evans Primary Care Provide r Encounters Date Type Department Care Team Description 12/17/2024 1:00 PM CDT Office Visit [facility] Cardiology [address] [place] [address] Chandrika Miller NP Chronic diastolic heart failure (HCC) (Primary Dx); Mild aortic stenosis from Last 3 Months Allergies Active Allergy Reactions Criticality Noted Date [...] times a day with meals 15 mL 4 Active LANTUS 100 unit/mL (3 mL) [...] problem. Managed by renal Dr Smiley at [place]. 08/25/21 GFR=35, CR=1.37. Assessment & Plan (04/07/2023 1:48 PM CDT): Chronic problem. Managed by renal Dr Smiley at [place]. ALEXANDER 02/07/23; NOV 06/13/23. 08/25/21 GFR=35, CR=1.37. Had labs completed 01/[address] Smiley. Will have her sign release to get copy of labs from his office and/or [facility]. Chronic kidney disease 12/02/2022 Assessment & Plan (12/02/2022 1:58 PM CDT): Chronic problem. Managed by Dr Jordi Smiley at [facility]. Next OV 02/07/23. 03/11/22 GFR=37, CR=1.40. 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 Last lipid panel: 03/11/22 LDL=72, NA=520. Will update labs today. Does not mychart. Verified phone #/address to contact re: results. Assessment & Plan (04/07/2023 1:16 PM CDT): Chronic problem, currently taking Simvastatin 40mg, zetia 10mg. Last lipid panel: 03/11/22 LDL=72, AL=282. No changes at this time. Assessment & Plan (01/25/2023 2:30 PM CDT): Chronic problem, currently taking Simvastatin 40mg, zetia 10mg. Last lipid panel: 03/11/22 LDL=72, WX=182. No changes at this time. Assessment & Plan (12/02/2022 1:01 PM CDT): Chronic problem, currently taking Simvastatin 40mg, zetia 10mg. Last lipid panel: 03/11/22 LDL=72, AQ=188. No changes at this time. Assessment & [...] infection. Assessment & Plan (08/11/2023 2:02 PM HEM MARKER): Hba1c was Lab Results Component Value Date [...] today. Reports DM eye exam 2021 at [facility] in [place], [place]. Letter sent to get copy of [...] Januvia Assessment & Plan (08/14/2020 2:20 PM HEM MARKER): Hba1c was Lab Results Component Value Date [...] reviewed. Assessment & Plan (07/05/2019 2:12 PM HEM MARKER): A1c 6.3 without reported hypoglycemia. Continue metformin and Januvia. Will check labs. Continue follow up with podiatry. BG and A1c goals reviewed. Assessment & Plan (06/20/2018 1:45 PM HEM MARKER): Hba1c was Lab Results Component Value Date [...] metformin Assessment & Plan (09/08/2017 10:58 AM HEM MARKER): Hba1c was 5.8 today, indicating proper DM [...] meds Assessment & Plan (07/05/2019 2:12 PM HEM MARKER): Controlled on current medications. Continue plan. Assessment & Plan (09/08/2017 10:55 AM HEM MARKER): Goal blood pressure is less than 140/85 Low salt diet recommended Daily aerobic exercise Continue current meds, including BELIA-I or ARB Mixed hyperlipidemia 09/08/2017 023 Assessment & Plan (02/07/2020 2:52 PM CDT): Continue statin therapy Assessment & Plan (11/08/2019 1:40 PM CDT): Continue statin therapy Assessment & Plan (07/05/2019 2:13 PM HEM MARKER): Check lipid panel Assessment & Plan (09/08/2017 11:00 AM HEM MARKER): Goal of treatment , LDL cholesterol less than 100 ( less than 70 in patients with history of heart attacks and / or strokes ) NonHDL cholesterol goal less than 130 ( less than 100 in patients with history of heart attacks and / or strokes ) Continue statin therapy Social History Tobacco Use Types Packs/Day Years [...] on file Legal Sex Female 9:25 AM HEM MARKER Gender Identity Not on file Sexual Orientation Not on file Last Filed Vital Signs Vital Sign Reading Time Taken Comments Blood Pressure 142/64 12/17/2024 1:03 PM CDT Pulse 66 12/17/2024 1:03 PM CDT Temperature 35.9 C (96.7 F) 08/08/2019 1:23 PM HEM MARKER Respiratory Rate 18 12/15/2023 1:28 PM CDT Oxygen Saturation 95% 12/17/2024 1:03 PM CDT Inhaled Oxygen Concentration - - Weight 69.4 kg (153 lb) 12/17/2024 1:03 PM CDT Height 170.2 cm (5' 7) 12/17/2024 1:03 PM CDT Body Mass Index 23.96 12/17/2024 1:03 PM CDT Plan of Treatment Not on file Procedures Procedure Name Priority Date/Time Associated Diagnosis [...] BASIC METABOLIC PANEL Routine 08/25/2021 1:21 PM HEM MARKER Chronic diastolic heart failure (HCC) POCT LIPID PANEL Routine 03/19/2021 11:2 8 AM CDT Type 2 diabetes mellitus with hyperglycemia, unspecified whether rat exterminator insulin use (HCC) from Last 3 Months or Most Recently Relevant to Health Maintenance Results * (ABNORMAL) POCT hemoglobin A1c (12/15/2023 1:36 PM CDT) Hemoglobin A1C, POC 6.9 % Blood 12/15/2023 1:36 PM CDT Linette Allen NP POINT OF CARE TEST ORDERA BLES Final Result * DIABETES EYE EXAM (04/28/2023 10:18 AM CDT) Historical Provider HEALTH MAINTENANCE Final Result * (ABNORMAL) Albumin [...] - 12/08/2022 12:11 PM CDT Performed at: [address] [place] [id number] Transcribing Operators Supervisor: Rob Sierra PhD, Phone: [phone] us Linette Allen EXECUTIVE PRODUCER [facility] URINE ORDERABLES Tiffanie l Result [facility] - * (ABNORMAL) Basic metabolic panel (08/25/2021 1:21 PM HEM MARKER) [facility] Glucose 146(H) 65 - 99 mg/dL [facility] - 01 BUN 56(H) 8 - 27 mg/dL [facility] - 01 Creatinine, Serum 1.37(H) 0.57 - 1.00 mg/dL [facility] - 01 eGFR If NonAfricn Am 35(L) >59 mL/min/1. 73 [facility] - 01 eGFR If Africn Am 41(L) >59 mL/min/1. 73 [facility] - 01 Comment: In accordance with recommendations from the NKF-ASN Task force, [facility] is in the process of updating [...] 01 Blood specimen (specimen) 08/25/2021 1:21 PM HEM MARKER 08/25/2021 Narrative [facility] - 08/26/2021 6:09 AM HEM MARKER Performed at: [address] [place] [id number] Transcribing Operators Supervisor: Rob Sierra PhD, Phone: [phone] us Xiomara Reynolds EXECUTIVE PRODUCER [facility] BLOOD ORDERABLES Final R esult [facility] - 01 * POCT lipid panel (03/19/2021 11:28 AM CDT) Cholesterol, POC 152 mg/dL HDL, POC 47 mg/dL Triglycerides, POC 111 mg/dL LDL Cholesterol POC 83 mg/dL Chol/HDL Ratio, POC 3.3 Non-HDL Cholesterol, POC 106 mg/dL Capillary blood 03/19/2021 1 1:28 AM CDT us Shashank Li MD POINT OF CARE TEST ORDERABLES Fi nal Result from Last 3 Months or Most Recently Relevant to Health Maintenance Insurance [facility] MEDICARE ADVANTAGE Member Subscriber Plan / Payer (Ef fective 2019-Present) Name:Elizabeth Negron Relation to Subscriber:Self Name:Elizabeth Negron Payer ID:[id number] (NAIC) Type:[facility] MEDICARE Address: [place] [id number] [address] MDCR HMO REF [facility] MEDICARE ADVANTAGE [facility] MEDIC[facility] ADVANTAGE Advance Directives For more information, please contact: [phone] Documents on File Type Date Recorded Patient Prescription Clerk Lenses Expl anation Power of Rim Technician 05/24/2024 1:13 PM Care Teams Resource Conservation Specialist Relationship Specialty Start Date End Date Iliana Evans PA [address] [place] [id number] PCP - General Physician Subway Train Operator 12/17/24 Jaye Smiley MD [address] [place] [address] Referring Physician Nephrology 04/07/23
--- OUTSIDE RECORDS SUMMARY | 2025-02-07 15:56 | XMS_ITS | Encounter Summary ---
Author Organization [facility] Address [address] [place] [address] Care Team Providers Care Clearance Coordinator Name Role Phone Kobi Watkins MD Primary Care Provider [phone] Kobi Watkins MD Primary Care Provider +- [phone] Kobi Watkins MD Primary Care Provider + [phone] Kobi Watkins MD Primary Care Provider + [phone] Kobi Watkins MD Primary Care Provider +- [phone] Kobi Watkins MD Primary Care Provider [phone] Molly Fagan MD Primary Care Provider Jaye Smiley MD Unavailable [phone] Iliana Evans Primary Care Provide r Encounter Details Date Type Department Care Team (Late st Contact Info) Description 04/19/2014 Orders Only [facility] Health Information Management [address] [place] [address] Scanning, Provider Social History Tobacco Use Types Packs/Day Years Used Date Smoking Tobacco: Never Assessed Comments Unknown Sex and Gender Information Value Date Recorded Sex Assigned at Not on file Legal Sex Female 9:25 AM VP AD SALES WEST Gender Identity Not on file Sexual Orientation Not on file documented as of this encounter Plan of Treatment Not on file documented as of this encounter Procedures Procedure Name Priority Date/Time Associated Diagnosis Comments SCAN - RADIOLOGY/IMAGING 04/19/2014 documented in this encounter Results * SCAN - RADIOLOGY/IMAGING (04/19/2014) Anatomical Region Laterality Modality Other us Provider Scanning Final Result documented in this encounter Visit Diagnoses Not on filedocumented in this encounter Care Teams Clearance Coordinator Relationship Specialty Start Date End Date Kobi Watkins MD PCP - General 10/29/16 05/05/22 Kobi Watkins MD PCP - General 10/12/16 10/28/16 Kobi Watkins MD PCP - General 04/21/15 10/11/16 Kobi Watkins MD PCP - General 12/03/14 04/20/15 Kobi Watkins MD PCP - General 10/01/14 12/02/14 Kobi Watkins MD PCP - General 01/30/14 09/30/14 Molly Fagan MD [address] [place] [address] PCP - General Family Medicine 05/06/22 12/16/24 Iliana Evans PA [address] [place] [address] PCP - General Physician Cad Programmer 12/17/24 Jaye Smiley MD [address] [facility] [address] [place] [address] Referring Physician Nephrology 04/07/23 documented as of this encounter
--- OUTSIDE RECORDS SUMMARY | 2025-02-07 15:57 | XMS_ITS | Clinical Summary ---
Author Organization [facility] [place] Address [address] [place] [address] Care Team Providers Care Vp Cardiovascular Name Role Phone Unavailable Primary Care Provider Unavailabl e Allergies Active Allergy Reactions Criticality Noted Date Comments Haemophilus B Polysaccharide Vaccine Swelling Medium 06/16/2016 Influenza Virus Vaccine Swelling Low 06/16/2016 Phenobarbital Other (see comment),Unknown Medium 06/16/2016 SPEEDS ME UP Medications fluticasone propionate 50 MCG/ACT nasal spray 2 (two) times a day. Active hyaluronan (ORTHOVISC) 30 MG/2ML injection ORTHOVISC 30 mg/2 mL intra-articul ar syringe Injections given in the office by the doctor. Active magnesium oxide 400 MG tablet Take 400 mg by mouth every morning. Active JANUVIA 100 MG tablet 100 mg every morning. 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 2 Active hydrocortisone (PROCTOSOL HC) 2.5 % rectal creamIndications:H emorrhoids, unspecified hemorrhoid type Place rectally 2 (two) times daily. 28 g 1 2 Active meclizine 12.5 MG tabletIndications: Vertigo Take 1 tablet (12.5 mg total) by mouth 2 (two) times daily. 180 tablet 1 2 Active calcium carbonate 1500 (600 Ca) MG tablet Take 600 mg by mouth 2 (two) times daily. Active PAROXETINE 40 MG tabletIndications: Anxiety TAKE 1 TABLET BY MOUTH DAILY 90 tablet 3 2 Active aspirin EC (ECOTRIN) 81 MG tablet Take 81 mg by mouth daily. Active acetaminophen (TYLENOL) 500 MG tablet Take 1,000 mg by mouth every 6 (six) hours as needed for Pain. Active diphenhydrAMINE (BENADRYL) 25 MG tablet Take 25 mg by mouth every 6 (six) hours as needed for Itching. Active simvastatin (ZOCOR) 40 MG tabletIndications: Mixed hyperlipidemia TAKE 1 TABLET BY MOUTH DAILY 100 tablet 2 2 Active ondansetron (ZOFRAN ODT) 4 MG disintegrating tabletIndications: Nausea Take 1 tablet (4 mg total) by mouth every 8 (eight) hours as needed for Nausea. 12 tablet 2 Active ezetimibe (ZETIA) 10 MG tabletIndications: Mixed hyperlipidemia TAKE 1 TABLET BY MOUTH IN THE EVENING 100 tablet 1 2 Active metoprolol tartrate (LOPRESSOR) 25 MG tabletIndications: Essential hypertension TAKE 1 TABLET BY MOUTH 3 TIMES DAILY 300 tablet 2 2 Active montelukast (SINGULAIR) 10 MG tabletIndications: Allergy, subsequent encounter Take 1 tablet (10 mg total) by mouth every morning. 90 tablet 3 2 Active furosemide (LASIX) 40 MG tabletIndications: Chronic diastolic heart failure (CMS/HCC HHS/HCC) TAKE 1 TABLET BY MOUTH DAILY 100 tablet 2 2 Active omeprazole (PRILOSEC) 20 MG capsuleIndications :GERD (gastroesophageal reflux disease) TAKE 1 CAPSULE BY MOUTH IN THE MORNING 100 capsule 2 3 Active traZODone (DESYREL) 50 MG tabletIndications: Insomnia TAKE 1 TABLET BY MOUTH AT BEDTIME 90 tablet 3 3 Active Active Problems Problem Noted Date Diagnosed Date Herpes zoster without complication 03/24/2022 Nonintractable headache, uns pecified chronicity pattern, unspecified headache type 01/25/2022 Urinary tract infection without hematuria, site unspecified 09/30/2021 PVC (premature ventricular contraction) 07/15/20 21 Primary osteoarthritis of both knees 05/14/2021 Acute renal failure syndrome 05/08/2021 Hyperlipidemia 05/08/2021 Nephropathy due to secondary diabetes mellitus ([facility]) 05/08/2021 Stage 3 chronic kidney disease 05/08/2021 Urinary tract infectious disease 05/08/2021 Cellulitis of lower extremity, unspecified later ality 05/08/2021 Aortic stenosis 04/29/2021 Bradycardia 04/29/2021 Diastolic congestive heart failure ([facility]) 04/29/2021 Chronic diastolic heart failure ([facility] ) 04/29/2021 Hyperlipidemia associated wi th type 2 diabetes mellitus ([facility]) 03/19/2021 Overview (05/08/2021): Last Assessment & Plan: Lipid checked today Continue Simvastatin Vertigo 02/11/2021 Primary hypertension 02/11/2021 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 They can recheck CBC at follow up to r/o sx d/t ELIECER. Diabetes mellitus ([facility]) 09/08/2017 06/19/2021 Overview (05/08/2021): Last Assessment & Plan: Continue with Januvia Immunizations Immunization Administration Dates Next Due Hepatitis A (Generic) 02/10/2000,07/27/1999 Hepatitis A (Havrix [address]) 02/10/2000,1998 Pneumococcal (Pneumovax 23) 01/25/2011, 9 Pneumococcal (Prevnar 13) 04/18/2018 Shingrix 01/19/2022,11/10/2021 Td 01/20/2017 Zoster (Zostavax) 91146 Unt/0.65Ml 11/12/2011 Family History Medical History Relation Comments Heart Disease Father Alzheimers Mother Heart Disease Mother Cancer Sister Colon Cancer Sister Relation Status Comments Father Mother Sister Social History Tobacco Use Types Packs/Day Years Used Date Smoking Tobacco: Never Smokeless Tobacco: Never Tobacco Cessation:Counseling Given: No Alcohol Use Standard Drinks/Week Comments Not Currently 0 (1 standard drink = 0.6 oz pur e alcohol) PHQ-2 Answer Date Recorded PHQ-2 Score - If the patient scores above 3, please move on to questions 3-9 0 01/25/2022 Comments No Sex and Gender Information Value Date Recorded Sex Assigned at Not on file Legal Sex Female 6:26 PM CDT Gender Identity Not on file Sexual Orientation Not on file Last Filed Vital Signs Vital Sign Reading Time Taken Comments Blood Pressure 122/60 04/01/2022 9:48 AM CDT Pulse 65 04/01/2022 9:48 AM CDT Temperature 36.6 C (97.9 F) 04/01/2022 9:48 AM CDT Respiratory Rate 17 03/24/2022 1:54 PM CDT Oxygen Saturation 96% 04/01/2022 9:48 AM CDT Inhaled Oxygen Concentration - - Weight 68.9 kg (152 lb) 04/01/2022 9:48 AM CDT Height 170.2 cm (5' 7) 01/25/2022 2:21 PM CDT Body Mass Index 23.81 01/25/2022 2:21 PM CDT Plan of Treatment Health Maintenance Due Date Last Done Comments Diabetes: Retinopathy Eye Exam 1953 RSV Immunization or 60+ Years (1 - 1-dose 75+ series) 11/01/2011 DTaP, Tdap and Td Vaccines (1 - Tdap) 01/21/2017 01/20/2017 Hemoglobin A1C 09/11/2022 03/11/2022, 09/01, 11/17/2020, Additional history exists Lipid Panel 03/11/2023 03/11/2022, 09/01, 03/19/2021 COVID-19 Vaccine ( season) 2024 12/07/2021, 08/03/2021, 02/04/2021, Additional history exists PHQ-2 (Physician [place]) 08/01/2024 Annual Medicare Wellness Visit 02/07/2025 Postponed from 2001 (Future Appointment) Pneumococcal Vaccine: 50+ Years Completed 04/18/2018, 01/25/2011, 05/01/2009 Zoster Vaccines Completed 01/19/2022, 10/30, 11/12/2011 Meningococcal B Vaccine Aged Out No l onger eligible based on patient's age to complete this topic Meningococcal Vaccine Aged Out No edilson kourtney eligible based on patient's age to complete this topic RSV Immunizations Under 20 Months Aged Out No longer eligible based on patient's age to complete this topic Procedures Procedure Name Priority Date/Time Associated Diagnosis Comments LIPID PANEL Routine 03/11/2022 10:12 AM CDT Mixed hyperlipidemia HEMOGLOBIN, GLYCOSYLATED Routine 03/11/2022 10:12 AM CDT DM type 2 with diabetic peripheral neuropathy from Last 3 Months or Most Recently Relevant to Health Maintenance Results * (ABNORMAL) HEMOGLOBIN, GLYCOSYLATED (03/11/2022 10:12 AM CDT) HGB A1C 7.4(H) 4.8 - 5.6 % [facility] 1 Comment: Prediabetes: 5.7 - 6.4 Diabetes: >6.4 Glycemic control for adults with diabetes: <7.0 03/11/2022 10:1 2 AM CDT 03/11/2022 Narrative [facility] - 03/12/2022 8:15 AM CDT Performed at: [address] [place] [id number] Biomedical Engineer: Rob Sierra PhD, Phone: [phone] us Kobi Watkins MD LABORATORY Final Resul t [facility] [address] [place] [address] [facility] 1 * (ABNORMAL) LIPID PANEL (03/11/2022 10:12 AM CDT) CHOLESTEROL 150 100 - 199 mg/dL [facility] 1 TRIGLYCERIDES 188(H) 0 - 149 mg/dL [facility] 1 HDL 47 >39 mg/dL [facility] 1 VLDL CALCULATION 31 5 - 40 mg/dL [facility] 1 LDL (CALCULATED) 72 0 - 99 mg/dL [facility] 1 03/11/2022 10:1 2 AM CDT 03/11/2022 Narrative [facility] - 03/12/2022 8:15 AM CDT Performed at: 01 - [facility] [address] [id number] Biomedical Engineer: Rob Sierra PhD, Phone: [phone] us Kobi Watkins MD LABORATORY Final Resul t [facility] [address] [place] [address] [facility] 1 from Last 3 Months or Most Recently Relevant to Health Maintenance Insurance [address] [address]
--- OUTSIDE RECORDS SUMMARY | 2025-02-07 15:57 | XMS_ITS | Encounter Summary ---
Author Organization [facility] Address [address] [place] [address] Care Team Providers Care Physical Therapy Resident Name Role Phone Kobi Watkins MD Primary Care Provider [phone]- [phone] Kobi Watkins MD Primary Care Provider +- [phone] Kobi Watkins MD Primary Care Provider +- [phone] Kobi Watkins MD Primary Care Provider + [phone] Kobi Watkins MD Primary Care Provider +- [phone] Kobi Watkins MD Primary Care Provider [phone]- [phone] Molly Fagan MD Primary Care Provider Jaye Smiley MD Unavailable [phone] Iliana Evans Primary Care Provide r Encounter Details Date Type Department Care Team (Late st Contact Info) Description 06/11/2014 Orders Only [facility] Health Information Management [address] [place] [address] Scanning, Provider Social History Tobacco Use Types Packs/Day Years Used Date Smoking Tobacco: Never Assessed Comments Unknown Sex and Gender Information Value Date Recorded Sex Assigned at Not on file Legal Sex Female 9:25 AM ARMATURE REWINDER Gender Identity Not on file Sexual Orientation Not on file documented as of this encounter Plan of Treatment Not on file documented as of this encounter Procedures Procedure Name Priority Date/Time Associated Diagnosis Comments GI - RESULT 06/11/2014 documented in this encounter Results * GI - RESULT (06/11/2014) Anatomical Region Laterality Modality Other us Provider Scanning Final Result documented in this encounter Visit Diagnoses Not on filedocumented in this encounter Care Teams Physical Therapy Resident Relationship Specialty Start Date End Date Kobi Watkins MD PCP - General 10/29/16 05/05/22 Kobi Watkins MD PCP - General 10/12/16 10/28/16 Kobi Watkins MD PCP - General 04/21/15 10/11/16 Kobi Watkins MD PCP - General 12/03/14 04/20/15 Kobi Watkins MD PCP - General 10/01/14 12/02/14 Kobi Watkins MD PCP - General 01/30/14 09/30/14 Molly Fagan MD [address] [email or web address] [address] [place] [address] PCP - General Family Medicine 05/06/22 12/16/24 Iliana Evans PA [address] [place] [address] PCP - General Physician Oil Well Fishing Tool Operator 12/17/24 Jaye Smiley MD [address] [facility] [address] [place] [address] Referring Physician Nephrology 04/07/23 documented as of this encounter
--- OUTSIDE RECORDS SUMMARY | 2025-02-07 15:57 | XMS_ITS | Clinical Summary ---
Author Organization [facility] Address [address], [place] [address] Phone Care Team Providers Care Lot Technician Name Role Phone Molly Fagan MD Primary Care Provider [phone]- [phone] Allergies Active Allergy Reactions Criticality Noted Date Comments Haemophilus B Polysaccharide Vaccine Swelling Medium 06/16/2016 Influenza Virus Vaccine Swelling Low 06/16/2016 Phenobarbital Other (see comments),Unknown Medium 06/16/2016 SPEEDS ME UP Medications aspirin (ST JOSE ALEJANDRO) 81 MG EC tablet 1 (one) time each day at the same time Active Calcium Carb-Cholecalcif natalia 600-20 MG-MCG chewable tablet Chew 600 mg in the morning. Active ezetimibe (ZETIA) 10 MG tablet 2 Active ferrous sulfate 325 (65 Fe) MG tablet every 12 hours Activ e fluticasone (FLONASE) 50 MCG/ACT nasal spray Administer 1 spray into affected nostril(s) in the morning and 1 spray in the evening. 8 Active furosemide (LASIX) 40 MG tablet 2 Active glucose blood (Precision QID Test) test strip 60 each in the morning and 60 each in the evening. Active hydrOXYzine (ATARAX) 25 MG tablet TAKE 1 TABLET BY MOUTH THREE TIMES DAILY NEEDED FOR ITCHING 2 Active magnesium oxide (MAG-OX) 400 MG tablet 1 (one) time each day at the same time Active meclizine (ANTIVERT) 12.5 MG tablet 2 Active metFORMIN XR 500 MG 24 hr tablet 2 Active metoprolol tartrate (LOPRESSOR) 25 MG tablet 2 Active nystatin (MYCOSTATIN) cream APPLY TOPICALLY TO THE AFFECTED AREA TWICE DAILY 2 Active omeprazole (PriLOSEC) [address] capsule 2 Active ondansetron ODT (ZOFRAN-ODT) 4 MG dispersible tablet DISSOLVE 1 TABLET ON THE TONGUE EVERY 8 HOURS FOR NAUSEA 2 Active PARoxetine (PAXIL) 40 MG tablet 1 (one) time each day at the same time 4 Active simvastatin (ZOCOR) 40 MG tablet 1 (one) time each day at the same time 7 Active SITagliptin (Januvia) 100 MG tablet 1 (one) time each day at the same time 5 Active traZODone (DESYREL) 50 MG tablet 2 Active triamcinolone (KENALOG) 0.1 % cream APPLY TOPICALLY TO THE AFFECTED AREA TWICE DAILY 2 Active Active Problems Problem Noted Date Diagnosed Date Herpes zoster without complication 03/24/2022 Headache 01/25/2022 Multiple premature ventricular complexes 021 Primary gonarthrosis, bilateral 05/14/2021 Acute renal failure syndrome 05/08/2021 Cellulitis of lower limb 05/08/2021 Hyperlipidemia 05/08/2021 Nephropathy due to secondary diabetes mellitus 1 Stage 3 chronic kidney disease 05/08/2021 Urinary tract infectious disease 05/08/2021 Aortic valve stenosis 04/29/2021 Bradycardia 04/29/2021 Chronic diastolic heart failure 04/29/2021 Hyperlipidemia 03/19/2021 Overview (06/02/2022): Last Assessment & Plan: Chronic problem. On statin therapy, no changes. Last Assessment & Plan: Lipid checked today Continue Simvastatin Vertigo 02/11/2021 Type 2 diabetes mellitus 12/28/2018 Overview (06/02/2022): Last Assessment & Plan: Hba1c was Lab Results Component Value Date [...] you to your next office visit. , Last Assessment & Plan: Foot care discussed Wearing diabetic shoes Under podiatrists' care Last Assessment & Plan: Foot care discussed Wearing diabetic shoes Under podiatrists' care Primary hypertension 09/08/2017 Overview (06/02/2022): Hypertension Last Assessment & Plan: Advised to follow up with PCP for any further balance issues. They can recheck CBC at follow up to r/o sx d/t ELIECER. Anemia 08/10/2016 Gastrointestinal hemorrhage 08/10/2016 Personal history of fall 08/10/2016 Overview (06/02/2022): Fell this AM at home, tripped on house shoe. 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 Immunizations Immunization Administration Dates Next Due Hep A, Unspecified 02/10/2000,07/27/1999 Hepatitis A 02/10/2000,07/27/1999 Pneumococcal Conjugate 13-Valent 04/18/2018 Pneumococcal Polysaccharide 01/25/2011, 9 Td 01/20/2017 Zoster 11/12/2011 Zoster Recombinant 01/19/2022,11/10/2021 Family History Medical History Relation Comments [place] workers' pneumoconiosis Father Heart disease Father Hypertension Father Hypertension Mother Colon cancer Sibling Relation Status Comments Father Mother Sibling Alive Social History Tobacco Use Types Packs/Day Years Used Date Smoking Tobacco: Never Smokeless Tobacco: Never Tobacco Cessation:Counseling Given: Not Answered Alcohol Use Standard Drinks/Week Comments Never 0 (1 standard drink = 0.6 oz pur e alcohol) Comments Unknown Sex and Gender Information Value Date Recorded Sex Assigned at Not on file Legal Sex Female 10:23 AM MDT Gender Identity Not on file Sexual Orientation Not on file Last Filed Vital Signs Vital Sign Reading Time Taken Comments Blood Pressure 134/76 06/07/2022 10:48 AM STOCK SUPERVISOR Pulse - - Temperature - - Respiratory Rate 18 06/07/2022 10:48 AM STOCK SUPERVISOR Oxygen Saturation - - Inhaled Oxygen Concentration - - Weight 68 kg (150 lb) 06/07/2022 10:48 AM STOCK SUPERVISOR Height 170.2 cm (5' 7) 06/07/2022 10:48 AM STOCK SUPERVISOR Body Mass Index 23.49 06/07/2022 10:48 AM STOCK SUPERVISOR Plan of Treatment Health Maintenance Due Date Last Done Comments Influenza Vaccine (#1) 2025 Pneumococcal PPSV23/PCV13 65 + Years / Low and Medium Risk Completed 04/18/2018, 01/25/2011, 05/01/2009 Insurance [place] [address] Care Teams Lot Technician Relationship Specialty Start Date End Date Molly Fagan MD [address] [place] [address] PCP - General Internal Medicine 05/03/22
--- OUTSIDE RECORDS SUMMARY | 2025-02-07 15:57 | XMS_ITS | Encounter Summary ---
Author Organization [facility] Address [address] [place] [address] Care Team Providers Care Cooking Casing And Drying Supervisor Name Role Phone Kobi Watkins MD Primary Care Provider [phone]- [phone] Kobi Watkins MD Primary Care Provider +- [phone] Kobi Watkins MD Primary Care Provider +- [phone] Kobi Watkins MD Primary Care Provider + [phone] Kobi Watkins MD Primary Care Provider +- [phone] Kobi Watkins MD Primary Care Provider [phone]- [phone] Molly Fagan MD Primary Care Provider Jaye Smiley MD Unavailable [phone] Iliana Evans Primary Care Provide r Encounter Details Date Type Department Care Team (Late st Contact Info) Description 08/15/2014 Orders Only [facility] [place] Health Information Management [address] [place] [address] Scanning, Provider Social History Tobacco Use Types Packs/Day Years Used Date Smoking Tobacco: Never Assessed Comments Unknown Sex and Gender Information Value Date Recorded Sex Assigned at Not on file Legal Sex Female 9:25 AM PRINTED CIRCUIT BOARDS CONTACT PRINTER Gender Identity Not on file Sexual Orientation Not on file documented as of this encounter Plan of Treatment Not on file documented as of this encounter Procedures Procedure Name Priority Date/Time Associated Diagnosis Comments SCAN - LABS 08/15/2014 documented in this encounter Results * SCAN - LABS (08/15/2014) us Provider Scanning Final Result documented in this encounter Visit Diagnoses Not on filedocumented in this encounter Care Teams Cooking Casing And Drying Supervisor Relationship Specialty Start Date End Date Kobi Watkins MD PCP - General 10/29/16 05/05/22 Kobi Watkins MD PCP - General 10/12/16 10/28/16 Kobi Watkins MD PCP - General 04/21/15 10/11/16 Kobi Watkins MD PCP - General 12/03/14 04/20/15 Kobi Watkins MD PCP - General 10/01/14 12/02/14 Kobi Watkins MD PCP - General 01/30/14 09/30/14 Molly Fagan MD [address] [place] [address] PCP - General Family Medicine 05/06/22 12/16/24 Iliana Evans PA [address] [place] [address] PCP - General Physician Cementer Machine Joiner 12/17/24 Jaye Smiley MD [address] [address] Referring Physician Nephrology 04/07/23 documented as of this encounter
--- OUTSIDE RECORDS SUMMARY | 2025-02-07 15:57 | XMS_ITS | Data Portability ---
Author Organization [place] - [facility], Main Office Address [address] [place] [address] Care Team Providers Care Mother Tester Name Role Phone AYE OLIVO Primary Care Provider AYE OLIVO Referring Provider [phone] Assessment Encounter Date Assessment Date Assessment LastModified by Organization Details LastModified Time 02/17/2024 02/17/2024 The patient has severe primary osteoarthritis both knees as described. Under sterile conditions I injected both knee joints in the office today with 4 cc 0.5% Marcaine and 20 mg of Kenalog each. The patient tolerated procedures well. I will see her back as needed we can do this again in 3 months if necessary she will call when she is ready to do gel shots or cortisone again she voiced understanding agrees with the above plan. Not available 02/17/2024 14:47:33 05/17/2024 05/17/2024 the patient has bilateral severe primary osteoarthritis both knees as described. Under sterile conditions I injected both knee joints in the office today with 4 cc of 0.5% bupivacaine and 20 mg of Kenalog each. The patient tolerated the procedures well. She would like to have the gel shots done on her next visit we will get these approved and see how the cortisone works for now. I have told her she can come back in about 6 weeks if necessary for gel. She voiced understanding agrees above plan she will call for any further problems difficulties or questions. Not available 05/17/2024 15:05:07 07/05/2024 07/05/2024 The patient has severe primary osteoarthritis both knees as described. Under sterile conditions I injected both knee joints in the office today with Synvisc-One injections that she brought from the specialty pharmacy. The patient tolerated the procedures well. I will see her back as needed we can give her gel shots again in 6 months versus doing cortisone in between to bridge the gap. She voiced understanding and agreed with the above plan she will call for any further problems difficulties or questions. The patient also takes tramadol occasionally when her pain has severe her order is written for 1 pill every 8 hours she would like to change to every 6-8 hours when she has severe pain and this prescription was sent to her pharmacy today. Not available 07/05/2024 15:34:59 10/04/2024 10/04/2024 The patient has severe primary osteoarthritis both knee joints as described. Under sterile conditions I injected both knee joints in the office today with 4 cc 0.5% bupivacaine and 20 mg of Kenalog each. The patient tolerated both injections well. She was wondering about what kind of medication she can take I have recommended Tylenol Arthritis [id number] she is going to use this as it does seem to help her. I will see her back in 3 months if necessary, she comes in every 3 months like clockwork. Next time she would like to do gel shots we will get her set up for Synvisc-One injections both knees for the next visit. She voiced understanding and agreed with the above plan she will call for any further problems difficulties or questions. Today's x-rays did not show any significant change in her overall osteoarthritic appearance or alignment. These are compared to previous x-rays done more than a year ago. Not available 10/04/2024 14:59:05 01/03/2025 01/03/2025 The patient has severe primary osteoarthritis bilateral knees as described. At her request under sterile conditions I injected both knee joints in the office today with Synvisc-One injections. The patient tolerated both injections well. I will see her back as needed we can do cortisone again in 3 months if necessary versus gel shots again in 6 months. She voiced understanding and agreed with the above plan she will call for any further problems difficulties or questions. Not available 01/03/2025 15:04:13 Plan of Treatment Reminders Order Date Submit Date Provider Last Modified By Organization Details Last Modified Time Details Appointments Any 5 2024 01:15P VINCENZO Delaney Not available Not available Not available Lab None recorded. Referral None recorded. Procedures injection /aspirati on joint/bur sa (PROC) 2024 025 [email or web address] In-Office Order, Internal Use Only DO Not Attach Compendium DO Not Attach Compendium, Do Not Delete/merge, [id number] 01/03/2025 14:18:29 injection /aspirati on joint/bur sa (PROC) 2024 025 In-Office Order, Internal Use Only DO Not Attach Compendium DO Not Attach Compendium, Do Not Delete/merge, [id number] 10/04/2024 14:31:50 injection /aspirati on joint/bur sa (PROC) - in office procedure , administe red by provider 2023 024 In-Office Order, Internal Use Only DO Not Attach Compendium DO Not Attach Compendium, Do Not Delete/merge, [id number] 07/05/2024 15:02:14 injection /aspirati on joint/bur sa (PROC) 2023 024 In-Office Order, Internal Use Only DO Not Attach Compendium DO Not Attach Compendium, Do Not Delete/merge, [id number] 05/17/2024 14:49:34 injection /aspirati on joint/bur sa (PROC) - in office procedure , administe red by provider 2023 024 In-Office Order, Internal Use Only DO Not Attach Compendium DO Not Attach Compendium, Do Not Delete/merge, [id number] 02/17/2024 14:35:14 Surgeries None recorded. Imaging XR, knee, 3 view 2024 025 [facility] [place], [address], [place], [address], 10/04/2024 15:17:35 Medication Orders bupivacai ne HCl 0.5 % (5 mg/mL) injection solution 2024 025 [facility], [address] [place] [address], [id number], 10/04/2024 14:54:16 Kenalog 10 mg/mL suspensio n for injection [email or web address] [facility], [address] [place] [address], [id number], 10/04/2024 14:54:16 tramadol 50 mg tablet 2023 024 ONUR [facility], [address] [place] [address], [id number], 07/05/2024 15:37:21 bupivacai ne HCl 0.5 % (5 mg/mL) injection solution [email or web address] [facility] [address] [facility], [address] [place] [address], [id number], 05/17/2024 16:10:17 Kenalog 10 mg/mL suspensio n for injection 2023 024 [facility], [address] [place] [address], [id number], 05/17/2024 16:10:17 Marcaine (PF) 0.5 % (5 mg/mL) injection solution 2023 024 [facility], [address] [place] [address], [id number], 10/10/2024 14:23:03 Kenalog 10 mg/mL suspensio n for injection 2023 024 [facility], [address] [place] [address], [id number], 02/17/2024 16:07:39 Patient TargetsNo targets recorded. Patient Instructions Encounter Date Encounter Id Patient Instructions Last Modified By Organization Details Last Modified Time 10/04/2024 [id number] viscosupplementa tion treatment* Not available 10/22/2024 10:16:08 Reason for Referral None Reported. Results Created Date Observation Date Name Description Value Unit Range Abnormal Flag Note LastModifiedBy Organization Detail LastModifiedTime 10/05/19 25 XR, knee, 3 view No observ ation record ed. [facility] [place] [address], [place], [place], [address], 10/04/2024 15:17:33 Result Notes None recorded. Problems Name Problem SNOMED Code Status Onset Date Resolution Date Notes Provider Name and Address Organization Details Recorded Time Bilateral osteoarthr itis of knees 2074285039956 07 Active 2022 Not Available [facility] 3 00:53:29 Pain in right sacroiliac joint 7026180888796 9107 Active 2022 Not Available [facility] 3 00:53:29 Osteoarthr itis of knee 374544477 Active 2021 Not Available [facility] 3 00:53:29 Osteoarthr itis of left knee joint 0702495913489 09 Active 2021 Not Available [facility] 3 00:53:29 Osteoarthr itis of right knee joint 9580078668214 00 Active 2021 Not Available [facility] 3 00:53:30 Osteoarthr itis 408553373 Active Not Available [facility] 3 00:53:30 Pain of bilateral knee joints 4251961683062 04 Active 2021 Not Available [facility] 3 00:53:30 Fracture of neck of femur 4432127 Active Not Available [facility] 3 00:53:30 Closed intertroch anteric fracture 38664678 Active Not Available [facility] 3 00:53:30 Problem Notes None recorded. Procedures Surgical History Date Name Laterality Status Provider Name and Address Organization Details Recorded Time Hip surgery completed Not Available [facility] 09/29/2022 00:47:35 Appendectomy completed SUSIE Love [employer] 10/06/2023 14:44:11 Foot Surgery completed SUSIE Love Estrellita Feast [facility] 10/06/2023 14:44:32 Imaging Results None recorded. Procedure Notes None recorded. Medical Equipment None Reported. Allergies Allergen ID Allergen Name Allergen Category Reaction Reaction Severity Criticality Documentation Date Start Date Code Code System Note Provider Name and Address Organization Details Recorded Time 1134 phenobarb ital medicatio n other Not available Not available 09/29/2022 8134 RxNorm Blist ers throa t close s Claire Soto, BLEACH MAKERJavi dey, [place] - [facility] [employer] [facility] 14:32:44 Medications Name Sig Start Date Stop Date Status Note LastModified by Organization Details LastModified Time celecoxib 200 mg capsule Take 1 capsule every day by oral route. 10/10 completed Not Available Not Available Not Available amoxicill in 500 mg capsule 09/15 completed Not Available Not Available Not Available furosemid e 40 mg tablet 10/05 completed Not Available Not Available Not Available BD Alcohol Swabs active Not Available Not Available Not Available prednison e 10 mg tablet 10/10 completed Not Available Not Available Not Available nitrofura ntoin macrocrys jeimy 50 mg capsule 07/09 completed Not Available Not Available Not Available doxycycli ne hyclate 100 mg capsule TAKE 1 CAPSULE BY MOUTH TWICE DAILY 10/10 completed Not Available Not Available Not Available paroxetin e 10 mg tablet 10/10 completed Not Available Not Available Not Available ketoconaz ole 2 % shampoo 10/10 completed Not Available Not Available Not Available loperamid e 2 mg capsule active Not Available Not Available Not Available trazodone 50 mg tablet active Not Available Not Available Not Available azithromy jim 250 mg tablet TAKE 2 TABLETS BY MOUTH ON DAY 1 AND THEN TAKE 1 TABLET BY MOUTH ONCE A DAY ON DAY 2 THROUGH DAY 5 10/05 completed Not Available Not Available Not Available tramadol 37.5 mg-acetam inophen 325 mg tablet 07/09 completed Not Available Not Available Not Available valacyclo vir 1 gram tablet 10/05 completed Not Available Not Available Not Available hydrocodo ne 5 mg-acetam inophen 325 mg tablet TAKE 1 TABLET BY MOUTH EVERY 4 HOURS 10/05 completed Not Available Not Available Not Available phenazopy ridine 200 mg tablet TAKE 1 TABLET BY MOUTH THREE TIMES DAILY NEEDED FOR PAIN 10/10 completed Not Available Not Available Not Available ondansetr on HCl 4 mg tablet TAKE 1 TABLET BY MOUTH EVERY 8 HOURS NEEDED 10/05 completed Not Available Not Available Not Available glipizide 10 mg tablet 07/09 completed Not Available Not Available Not Available bupivacai ne HCl 0.5 % (5 mg/mL) injection solution Take 40 mg by injectio n route. 2024 active Not Available Not Available Not Avai lable prednison e 20 mg tablet 10/10 completed Not Available Not Available Not Available alendrona te 70 mg tablet 07/09 completed Not Available Not Available Not Available Milk of Magnesia 400 mg/5 mL oral suspensio n 10/05 completed Not Available Not Available Not Available glipizide ER 5 mg tablet, extended release 24 hr 10/05 completed Not Available Not Available Not Available meclizine 12.5 mg tablet TAKE 1 TABLET BY MOUTH EVERY 6 HOURS NEEDED active Not Available Not Available No t Available Enema Disposabl e 19 gram-7 gram/118 mL 10/05 completed Not Available Not Available Not Available acetamino phen 300 mg-codein e 30 mg tablet TAKE 1 TABLET EVERY 6 HOURS NEEDED FOR PAIN 08/03 completed Not Available Not Available Not Available clopidogr el 75 mg tablet 10/05 completed Not Available Not Available Not Available ciproflox acin 250 mg tablet 07/09 completed Not Available Not Available Not Available amlodipin e 5 mg tablet 08/03 completed Not Available Not Available Not Available allopurin ol 100 mg tablet active Not Available Not Available Not Available sulfameth oxazole 800 mg-trimet hoprim 160 mg tablet TAKE 1 TABLET BY MOUTH EVERY 12 HOURS FOR 4 DAYS 10/05 completed Not Available Not Available Not Available aspirin 81 mg tablet,de layed release 10/10 completed Not Available Not Available Not Available tramadol 50 mg tablet TAKE 1 TABLET BY MOUTH EVERY 6 TO 8 HOURS NEEDED active Not Available Not Available No t Available acetamino phen 500 mg tablet active Not Available Not Available No t Available triamcino lone acetonide 0.1 % topical cream APPLY TOPICALL Y TO THE AFFECTED AREA TWICE DAILY active Not Available Not Available No t Available simvastat in 40 mg tablet active Not Available Not Available Not Available prednison e 10 mg tablets in a dose pack Take 1 tab by mouth, 3 times a day for 3 daysTake 1 tab by mouth 2 times a day for 2 daysTake 1 tab by mouth once a day for 1 day 10/05 completed Not Available Not Available Not Available carbamaze pine 200 mg tablet 10/05 completed Not Available Not Available Not Available hydrocort isone 2.5 % topical cream with perineal applicato r APPLY RECTALLY TO THE AFFECTED AREA TWICE DAILY 10/05 completed Not Available Not Available Not Available alprazola m 0.5 mg tablet 07/09 completed Not Available Not Available Not Available calcium 600 mg (as calcium carbonate 1,500 mg) tablet active Not Available Not Available Not Available magnesium oxide 400 mg (241.3 mg magnesium ) tablet active Not Available Not Available Not Available Ear Wax Removal Kit 6.5 % drops 10/05 completed Not Available Not Available Not Available Ad.IQTouniRow Ultra Test strips USE TO CHECK BLOOD SUGAR TWICE DAILY active Not Available Not Available No t Available Kenalog 10 mg/mL suspensio n for injection Take 40 mg by injectio n route. 2024 active [facility]: [id number] 4-20 Not Available Not Available Not Available meclizine 25 mg tablet TAKE 1 TABLET BY MOUTH EVERY DAY AT BEDTIME active Not Available Not Available No t Available hydrocodo ne 7.5 mg-acetam inophen 325 mg tablet 07/09 completed Not Available Not Available Not Available bisacodyl 10 mg rectal supposito ry Insert 1 supposit ory every day by rectal route as needed. active FOR CONSTIPA TION Not Available Not Available Not Available cephalexi n 500 mg capsule TAKE 1 CAPSULE BY MOUTH EVERY 12 HOURS FOR 10 DAYS 10/05 completed Not Available Not Available Not Available pantopraz ole 40 mg tablet,de layed release 10/10 completed Not Available Not Available Not Available metformin 1,000 mg tablet TAKE 1 TABLET BY MOUTH IN THE EVENING 10/05 completed Not Available Not Available Not Available nystatin 100,000 unit/gram topical cream APPLY TOPICALL Y TO THE AFFECTED AREA TWICE DAILY 10/05 completed Not Available Not Available Not Available lisinopri l 10 mg tablet 09/15 completed Not Available Not Available Not Available glucose 4 gram chewable tablet 10/05 completed Not Available Not Available Not Available metoprolo l tartrate 50 mg tablet active Not Available Not Available Not Available docusate sodium 100 mg capsule 10/05 completed Not Available Not Available Not Available oxybutyni n chloride ER 5 mg tablet,ex tended release 24 hr 07/09 completed Not Available Not Available Not Available omeprazol e 20 mg capsule,d elayed release active Not Available Not Available Not Available Banophen 25 mg capsule 10/05 completed Not Available Not Available Not Available magnesium citrate oral solution 10/04 completed Not Available Not Available Not Available monteluka st 10 mg tablet TAKE 1 TABLET BY MOUTH EVERY MORNING 10/05 completed Not Available Not Available Not Available hydroxyzi ne HCl 25 mg tablet TAKE 1 TABLET BY MOUTH THREE TIMES DAILY NEEDED FOR ITCHING 08/03 completed Not Available Not Available Not Available furosemid e 20 mg tablet active Not Available Not Available Not Available mirtazapi ne 15 mg tablet 10/05 completed Not Available Not Available Not Available nystatin 100,000 unit/gram topical powder 10/10 completed Not Available Not Available Not Available levofloxa jim 750 mg tablet 07/09 completed Not Available Not Available Not Available paroxetin e 40 mg tablet 10/05 completed Not Available Not Available Not Available colchicin e 0.6 mg tablet TAKE 1 TABLET BY MOUTH EVERY 12 HOURS active Not Available Not Available No t Available celecoxib 100 mg capsule Take 1 capsule every day by oral route. 10/10 completed Not Available Not Available Not Available clobetaso l 0.05 % scalp solution 10/05 completed Not Available Not Available Not Available ondansetr on 4 mg disintegr ating tablet DISSOLVE 1 TABLET ON THE TONGUE EVERY 8 HOURS FOR NAUSEA 08/03 completed Not Available Not Available Not Available cefdinir 300 mg capsule TAKE 1 CAPSULE BY MOUTH EVERY 12 HOURS 10/10 completed Not Available Not Available Not Available fluticaso ne propionat e 50 mcg/actua tion nasal spray,brianna pension active Not Available Not Available Not Available metformin ER 500 mg tablet,ex tended release 24 hr 10/05 completed Not Available Not Available Not Available amoxicill in 875 mg-potass ium clavulana te 125 mg tablet 10/04 completed Not Available Not Available Not Available ezetimibe 10 mg tablet active Not Available Not Available Not Available Premarin 0.625 mg/gram vaginal cream INSERT 1 4 (ONE FOURTH) APPLICAT ORFUL VAGINALL Y TWICE DAILY FOR 30 DAYS active Not Available Not Available No t Available Marcaine (PF) 0.5 % (5 mg/mL) injection solution Take 40 mg by injectio n route. 10/10 completed Not Available Not Available Not Available tetanus-d iphtheria toxoids-T d 2 Lf unit-2 Lf unit/0.5 mL IM suspensio n 07/09 completed Not Available Not Available Not Available metoprolo l tartrate 25 mg tablet TAKE 1 TABLET BY MOUTH THREE TIMES DAILY 10/05 completed Not Available Not Available Not Available ORTHOVISC 30 mg/2 mL intra-art icular syringe Inject 2 mL every week by intra-ar ticular route. 10/05 completed Not Available Not Available Not Available nitrofura ntoin monohydra te/macroc rystals 100 mg capsule 09/15 completed Not Available Not Available Not Available Vesicare 5 mg tablet 09/15 completed Not Available Not Available Not Available Novofine Autocover 30 gauge x 1/3 needle 10/10 completed Not Available Not Available Not Available Euflexxa 10 mg/mL (mw 2.4-3.6 million) intra-art icular syringe 07/09 completed Not Available Not Available Not Available hydrocodo ne 5 mg-acetam inophen 300 mg tablet TAKE 1 TABLET BY MOUTH EVERY 6 HOURS NEEDED 08/03 completed Not Available Not Available Not Available sodium chloride 1,000 mg soluble tablet 10/05 completed Not Available Not Available Not Available lidocaine (PF) 10 mg/mL (1 %) injection solution In office injectio n administ ered by the provider 05/15 completed [facility]: [id number] 01-15 Not Available Not Available Not Available Januvia 100 mg tablet Take 1 tablet every day by oral route. active Not Available Not Available No t Available cholecalc iferol (vitamin D3) 1,250 mcg (50,000 unit) capsule active Not Available Not Available Not Available FeroSul 325 mg (65 mg iron) tablet active Not Available Not Available Not Available Lantus Solostar U-100 Insulin 100 unit/mL (3 mL) subcutane ous pen active Not Available Not Available Not Available Humalog KwikPen (U-100) Insulin 100 unit/mL subcutane ous active Not Available Not Available Not Available Synvisc-O ne 48 mg/6 mL intra-art icular syringe Take 6 mL by intraart icular route as directed , for bilatera l knee osteoart hritis. 2024 active Not Available Not Available Not Avai lable Prevnar 13 (PF) 0.5 mL intramusc ular syringe 07/09 completed Not Available Not Available Not Available Certavite -Antioxid ant 18 mg-400 mcg tablet active Not Available Not Available Not Available Tradjenta 5 mg tablet 10/05 completed Not Available Not Available Not Available ropivacai ne (PF) 5 mg/mL (0.5 %) injection solution Take 40 mg by injectio n route. 10/05 completed [facility] [id number] 10-30 Not Available Not Available Not Available BD AutoShiel d Duo Pen Needle 30 gauge x 16 active Not Available Not Available Not Available Myrbetriq 25 mg tablet,ex tended release 07/09 completed Not Available Not Available Not Available Myrbetriq 50 mg tablet,ex tended release 07/09 completed Not Available Not Available Not Available Jardiance 10 mg tablet TAKE 1 TABLET BY MOUTH DAILY 10/05 completed Not Available Not Available Not Available Jardiance 25 mg tablet Take 1 tablet every day by oral route. active Not Available Not Available No t Available colchicin e 0.6 mg capsule TAKE 1 CAPSULE BY MOUTH DAILY active Not Available Not Available No t Available TRUEplus Glucose 3.75 gram chewable tablet active Not Available Not Available Not Available OneTouch Ultra Blue Test Strip U TO CHECK BLOOD SUGAR BID 10/05 completed Not Available Not Available Not Available OneTouch Ultra2 Meter USE DIRECTED 10/05 completed Not Available Not Available Not Available Paxlovid 150 mg-100 mg tablets in a dose pack (Moderate Renal Dose) FOLLOW PACKAGE DIRECTIO NS TWICE DAILY FOR 5 DAYS 10/05 completed Not Available Not Available Not Available Vitals Date Recorded Body height Provider Name an d Address Organization Details Last Updated DateTime 10/04/2024 170.18 cm 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 [employer] [facility] [employer] 10/04/2024 14:26:50 Date Recorded Body height Provider Name an d Address Organization Details Last Updated DateTime 01/03/2025 170.18 cm Monet Fraga [facility] [employer] [facility] 01/03/2025 14:16:19 Date Recorded Body height Body mass index (BMI) Body weight Provider Name and Address Organization Details Last Updated DateTime 02/17/2024 170.18 cm 23.8 kg/m2 46017.04 g Claire Soto CNA [place] [employer] [facility] [employer] 02/17/2024 14:32:47 Date Recorded Body height Body mass index (BMI) Body weight Provider Name and Address Organization Details Last Updated DateTime 05/17/2024 170.18 cm 23.6 kg/m2 16114.45 g Claire Soto [employer] [facility] [employer] 05/17/2024 14:48:07 Date Recorded Body height Body mass index (BMI) Body weight Provider Name and Address Organization Details Last Updated DateTime 07/05/2024 170.18 cm 23.5 kg/m2 67121.86 g Claire Soto [facility] [employer] [facility] [employer] 07/05/2024 15:00:41 Social History None recorded. Functional Status Question Answer Note LastModified by Organizat ion Details LastModified Time What is your level of alcohol consumption? None [id number] Information not available 09/29/2022 Mental Status None recorded. Family History Relationship Description Onset Age of this Age Resolved Age Notes LastModified by Organization Details LastModified Time Father Heart disease [id number] Not available 09/29/2022 00:47:38 Mother Heart disease [id number] Not available 09/29/2022 00:47:38 Mother Hypertensive disorder [id number] Not available 09/29/2022 00:47:38 Sister Family history of malignant neoplasm two sister s Not available 10/06/2023 14:43:17 Sister Hypertensive disorder two sister s Not available 10/06/2023 14:43:03 Father Hypertensive disorder Not available 2023 14:42:28 Father Family history of malignant neoplasm Not available 2023 14:43:24 Father Kidney disease Not available 2023 14:43:38 Son Hypertensive disorder Not available 2024 14:38:40 Son Family history of stroke Not available 2024 14:39:11 Notes:cancer-mother Medical History Condition Response ARTHRITIS Y ULCERS Y USE OF BLOOD THINNERS Y ANEMIA/BLOOD DISORDER Y DIABETES, TYPE Y SKIN PROBLEMS Y HEART DISEASE/HEART PROBLEMS Y OSTEOPOROSIS Y URINARY/BLADDER/KIDNEY PROBLEMS Y GOUT Y HEART ARRHYTHMIA Y HYPERTENSION Y Gynecological HistoryNo gynecological history recorded. Obstetrics History GPAL:G 0 P 0 0 0 0 Past Encounters Encounter ID Performer Location Encounter Start Date Encounter Closed Date Diagnosis/Indication Diagnosis SNOMED-CT Code Diagnosis ICD10 Code Diagnosis Note [id number] VINCENZO Negron [facility] [address] [place] [address] 09/30/2020 00:00:00 09/30/2020 15:58:13 [id number] VINCENZO Negron [facility] [address] [place] [address] 10/07/2020 00:00:00 10/07/2020 15:05:24 [id number] VINCENZO Negron [facility] [address] [place] [address] 01/30/2021 00:00:00 01/30/2021 12:35:43 [id number] VINCENZO Negron [facility] [address] [place] [address] 05/15/2021 00:00:00 05/15/2021 15:07:24 [id number] MD ARIANNA [facility] [address] [place] [address] 05/21/2021 00:00:00 05/21/2021 14:53:48 [id number] Jani Larios MD [facility] [address] [place] [address] 05/28/2021 00:00:00 05/28/2021 14:45:14 [id number] Jani Larios MD [facility] [address] [place] [address] 08/27/2021 00:00:00 08/27/2021 13:08:16 [id number] Jani Larios MD [facility] [address] [place] [address] 11/19/2021 00:00:00 11/19/2021 10:40:31 [id number] Jani Larios MD [facility] [address] [place] [address] 01/19/2022 00:00:00 01/19/2022 14:10:45 [id number] Jani Larios MD [facility] [address] [place] [address] 01/26/2022 00:00:00 01/26/2022 14:17:40 [id number] Jani Larios MD [facility] [address] [place] [address] 02/02/2022 00:00:00 02/02/2022 14:51:51 [id number] Jani Larios MD [facility] [address] [place] [address] 04/30/2022 00:00:00 04/30/2022 14:29:33 [id number] Jani Larios MD [facility] [address] [place] [address] 08/03/2022 00:00:00 08/03/2022 16:31:49 [id number] Jani Larios MD [facility] [address] [place] [address] 09/27/2022 00:00:00 09/27/2022 13:03:03 [id number] VINCENZO Negron [facility] [address] [place] [address] 10/04/2022 11:20:27 10/04/2022 15:44:59 Pain of bilateral knee joints [id number] 21543 M25.562 Bilateral osteoarthritis of knees [id number] 50868 M17.0 Pain in ri ght sacroiliac joint [id number] 0260168 M53.3 [id number] Jani Larios MD [facility] [address] [place] [address] 10/14/2022 13:45:36 10/14/2022 15:15:37 Bilateral osteoarthritis of knees [id number] 53247 M17.0 Pain of bi lateral knee joints 2172762684 96100 M25.562 Pain in ri ght sacroiliac joint 7598604939 4366734 M53.3 [id number] MD ARIANNA [facility] [address] [place] [address] 12/07/2022 14:57:30 12/07/2022 16:39:17 Bilateral osteoarthritis of knees [id number] 66536 M17.0 Pain in ri ght sacroiliac joint 3213523332 3505105 M53.3 Pain of bi lateral knee joints 4926884525 26703 M25.562 [id number] Jani Larios MD [facility] [address] [place] [address] 03/01/2023 14:13:15 03/01/2023 15:15:14 Bilateral osteoarthritis of knees [id number] 13277 M17.0 Pain in ri ght sacroiliac joint 3788865546 3909527 M53.3 Pain of bi lateral knee joints 8835249142 06226 M25.007 [id number] Jani Larios MD [facility] [address] [place] [address] 04/19/2023 15:23:26 04/19/2023 17:03:24 Bilateral osteoarthritis of knees [id number] 28205 M17.0 [id number] Mann Bowling MD [facility] [address] [place] [address] 04/26/2023 14:45:46 04/26/2023 15:14:27 Bilateral osteoarthritis of knees [id number] 84363 M17.0 [id number] Mann Bowling MD [facility] [address] [place] [address] 05/10/2023 14:34:46 05/10/2023 15:02:04 Bilateral osteoarthritis of knees [id number] 65988 M17.0 [id number] VINCENZO Negron [facility] [address] [place] [address] 07/18/2023 11:32:26 07/18/2023 12:36:14 Bilateral osteoarthritis of knees [id number] 81662 M17.0 [id number] Alirio Boyd MD [facility] [address] [place] [address] 10/06/2023 14:03:58 10/06/2023 15:14:56 Bilateral osteoarthritis of knees [id number] 28231 M17.0 Pain of bi lateral knee joints 4364989738 75381 M25.923 [id number] Alirio Boyd MD [facility] [address] [place] [address] 11/18/2023 11:14:54 11/18/2023 11:50:17 Bilateral osteoarthritis of knees 6702927761 05579 M17.0 Pain of bi lateral knee joints 8961911820 16045 M25.264 [id number] Alirio Boyd MD [facility] [address] [place] [address] 02/17/2024 14:28:10 02/17/2024 14:48:40 Bilateral osteoarthritis of knees 9709257537 64431 M17.0 Pain of bi lateral knee joints 3918625807 65623 M25.694 [id number] Alirio Boyd MD [facility] [address] [place] [address] 05/17/2024 14:41:03 05/17/2024 15:08:47 Bilateral osteoarthritis of knees 5724790271 89766 M17.0 Pain of bi lateral knee joints 9435096064 21511 M25.176 [id number] Alirio Boyd MD [facility] [address] [place] [address] 07/05/2024 14:50:33 07/05/2024 16:13:24 Bilateral osteoarthritis of knees 2594241470 52055 M17.0 Pain of bi lateral knee joints 5949317090 45269 M25.901 [id number] Alirio Boyd MD [facility] [address] [place] [address] 10/04/2024 14:19:17 10/04/2024 15:07:47 Bilateral osteoarthritis of knees 9853273132 35046 M17.0 Pain of bi lateral knee joints 7363689729 75340 M25.827 [id number] Alirio Boyd MD [facility] [place] [address] [place] [address] 01/03/2025 14:12:17 01/03/2025 14:59:03 Bilateral osteoarthritis of knees 1419277153 21118 M17.0 Pain of bi lateral knee joints 9846235464 86333 M25.562 Health Concerns Section Related Observation LastModified by Organization Detai ls LastModified Time None Recorded Concern Status LastModified by Organization Details LastModified Time None Recorded Advance Directives Directive None Recorded Payers Insurance Date Sequence Insurance Name Policy Number Policy Ojeda Covered Member ID Ojeda Member ID Guarantor Name 01/24/2025 1 [facility] (MEDICARE REPLACEMENT/A DVANTAGE - HMO) [id number] Elizabeth Negron [id number] Elizabeth Negron Notes Date Note Type Note Provider Name and Address Organization Details Recorded Time 02/17/2024 text/html Patient returns complaining of bilateral knee pain she has 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 She had gel shots both knees 3 months ago she comes in today requesting cortisone the shots worked pretty well for her for awhile but the last couple of weeks her knees have really been bothering her. She just recovered from a UTI so she is feeling pretty good physically except for her knees. She would like both knees injected again today denies any new problems with either knee. VINCENZO Negron [address], [place], [address], [facility] 02/17/2024 14:47:49 05/17/2024 text/html patient returns with bilateral knee pain she has known severe primary osteoarthritis both knees particularly in the patellofemoral articulations moderately so in the tibial femoral articulations. She comes in every 3 months for injections she would like to have both knees injected today with cortisone. She was thinking about doing gel today but we have to get this approved through her insurance 1st. She denies any new problems with the knees no erythema effusion or signs of infection. VINCENZO Negron [address], [place], [address], [email or web address] 05/17/2024 15:05:19 07/05/2024 text/html patient returns for bilateral knee Synvisc-One injections. She states lately she has been having a lot of pain with the cold weather her knees are very stiff and painful. She had shots of cortisone 2 months ago which gave her some relief she was trying to bridge the gap between the gel shots which she thinks works better for her. She brings in the medication from the specialty pharmacy today to treat her severe primary osteoarthritis both knees particularly the patellofemoral articulations more moderate in the tibial femoral articulations both knees. Denies any new problems with either knee. VINCENZO Negron [address], [place], [address], [email or web address] 07/05/2024 15:36:20 10/04/2024 text/html The patient retu rns she is having bilateral knee pain again. She is nearly 89 years of age not a candidate for total knee arthroplasty. We are getting new updated x-rays of both knees today she has severe primary osteoarthritis particularly in the patellofemoral articulations bilaterally. She uses a rolling walker for support for the most part gets around pretty well as long as she gets injections every 3 months. She had gel shots done 3 months ago recently they have worn off she would like to do cortisone again today. Denies any new problems with either knee. No effusion or swelling no erythema he had effusion or signs of infection. New past medical history sheet was reviewed and signed on the intake sheet of today's date drug allergies current medications family social history previous surgical history 10 point review of systems was reviewed and discussed in detail today with the patient. She states her pain at times is a 10 on a scale of 1-10 some days are better than others. VINCENZO Negron [address], [place], [address], [email or web address] 10/04/2024 15:18:39 01/03/2025 text/html The patient retu rns with bilateral knee pain she comes in every few months for cortisone injections. Between those intervals we also do gel shots every 6 months. She is due for Synvisc-One injections both knees. She is not a candidate for total knee arthroplasty she has multiple medical issues and is 89 years of age. She gets by with conservative measures uses a rolling walker for support. The patient has severe primary osteoarthritis particularly in the patellofemoral articulations bilaterally significant narrowing of the tibial femoral articulations are noted as well. More changes are noted in the lateral compartment of the right knee with mild to moderate valgus deformity. Left knee shows more symmetric narrowing of the medial and lateral compartments. Both patellofemoral articulations are [id number]. She would like to proceed with Synvisc-One injections today she brings him medication for the specialty pharmacy. VINCENZO Negron [address], [place], [address], [email or web address] 01/03/2025 15:05:04 OBGyn Episode No OBEpisode recorded.
--- NOTE | 2025-02-07 17:07 | ED.SKABFB ---
HPI - Skin/Abscess/Foreign Bdy General Chief complaint: Skin/Abscess/Foreign Body <Virginia Mccallum PA-C - Last Filed: 02/07/25 17:09> Stated complaint: eczema <Virginia Mccallum PA-C - Last Filed: 02/07/25 17:09> Time Seen by Provider: 02/07/25 22:05 <Virginia Mccallum PA-C - Last Filed: 02/07/25 17:09> Focused HPI: 89-year-old female presents to the ED from [facility] for eczema, nausea and subjective fevers. Patient states she has had an eczema rash to her chest, back and scalp since December. She is followed up with her PCP and has been prescribed steroid creams which she has been using with improvement. She ran out of her steroid cream yesterday. She also states her PCP recently prescribed her ketoconazole shampoo which she started yesterday which provided some improvement. She states over the past couple days she has felt nauseous and 2 nights ago woke up with a subjective fever in the middle the night. She has not had a recorded fever. She is worried that the rash is making her sick. She denies any chest pain, shortness of breath, cough or congestion, abdominal pain, vomiting or diarrhea, dysuria or hematuria. GENERAL: Well-appearing, well-nourished, and in no acute distress. HEAD: Normocephalic, atraumatic. CHEST: Clear to auscultation. ?No respiratory distress. HEART: Regular rate and rhythm.? NEURO: ?Alert and oriented x3. Patient screened in triage and initial orders placed.? ?Additional care and disposition to be based upon?diagnostic testing and treatment. <Virginia Mccallum PA-C - Last Filed: 02/07/25 17:09> Related Data Home medications: Home Medications ?Medication ?Instructions ?Recorded ?Confirmed ?Last Taken ?Type simvastatin 40 mg tablet 40 mg PO HS 12/12/20 10/23/24 04/29/21 History calcium carbonate 600 mg PO BID 04/15/22 10/23/24 Unknown History sitagliptin phosphate 100 mg 100 mg PO DAILY 11/15/22 10/23/24 Unknown History tablet (Januvia) bisacodyl 10 mg rectal suppository 10 mg RECTAL DAILY PRN Constipation 01/08/23 10/23/24 Unknown History cholecalciferol (vitamin D3) 1,250 1,250 mcg PO WEEKLY 01/08/23 10/23/24 Unknown History mcg (50,000 unit) capsule acetaminophen 500 mg capsule 500 mg PO Q6H PRN Pain (Scale 04/21/23 10/23/24 Unknown History Score 1-3) multivitamin with minerals-folic 1 tablet PO DAILY 04/21/23 10/23/24 Unknown History acid 12 mcg chewable tablet (Centrum Adults) magnesium oxide 400 mg PO DAILY 10/24/23 10/23/24 Unknown History <Virginia Mccallum PA-C - Last Filed: 02/07/25 17:09> Allergies/Adverse reactions: Allergies Allergy/AdvReac Type Severity Reaction Status Date / Time influenza A (H1N1) virus Allergy Unknown Swelling Verified 12/27/24 13:03 vaccine m-jong-split 2009 of Lip/Tongue/Throat Influenza Virus Vaccines Allergy Unknown Swelling Verified 12/27/24 13:03 of Lip/Tongue/Throat phenobarbital AdvReac Mild Hallucinati Verified 12/27/24 13:03 ng <Virginia Mccallum PA-C - Last Filed: 02/07/25 17:09> Review of Systems Review of Systems: All systems reviewed & are unremarkable except as noted in HPI and below <Zina Hughes PA-C - Last Filed: 02/07/25 23:27> ON LICENSE OF [facility] Past Medical History Medical History: Medical History Acute UTI Acute kidney injury Acute kidney injury superimposed on CKD Acute bronchitis Subacute sinusitis AVM (arteriovenous malformation) of colon with hemorrhage Acute on chronic blood loss anemia Hematochezia Acute blood loss anemia Peripheral vascular disease Paroxysmal atrial fibrillation Acute GI bleeding Graham lesion, acute (12/2022) Coffee ground emesis GI bleed Nausea and vomiting Acute kidney injury Elevated troponin Cellulitis of left lower extremity Seborrheic dermatitis Hearing loss, bilateral Erythema of toe Encounter for other specified surgical aftercare Diabetic foot infection Acute renal insufficiency Acute UTI Cellulitis of foot, left Dysuria Trigger finger of both hands Primary osteoarthritis of both knees Stenosis of right internal carotid artery 51% stenosis of the proximal right ICA on CTA in December 2021. Severe pulmonary hypertension Noted on echocardiogram April 2021. PASP was 65 mmHg. Aortic valve stenosis [id number] aortic valve stenosis on echocardiogram in April 2021 with a valve area of 1.1 to 1.5 centimeter squared. Left face and left arm tingling Closed fracture of left great toe Cellulitis of second toe, right Cellulitis of foot, left Acute respiratory failure with hypoxia Acute diastolic CHF (congestive heart failure) Diastolic congestive heart failure Echocardiogram on 12/13/2020 showed normal left ventricular size with moderate consent of left ventricular hypertrophy with overall good left ventricular systolic function with an EF measuring 62%. There was hypokinesis of the basal inferoseptal segment as well as grade 1 diastolic dysfunction with moderately enlarged left atrial chamber and atrial septal aneurysm. Urinary tract infection Gastroesophageal reflux Hypertension Diabetic peripheral neuropathy Type 2 diabetes mellitus Hemoglobin A1c was 6.8% on 12/12/2020. Chronic kidney disease, stage 3 DVT prophylaxis Pain in right shoulder Syncope Fracture of proximal end of right humerus (07/24/19) Conservative management Depression Fracture of proximal end of humerus Syncope Anemia History of blood transfusions. Arthritis GI bleed History of rectal polyps Diverticulitis Hyperlipidemia <Virginia Mccallum PA-C - Last Filed: 02/07/25 17:09> Surgical History Surgical History: Surgical History Presence of arterial stent Left leg Amputation toe (08/2022) Left 5th toe History of toe surgery History of inguinal hernia repair (~2016) History of hysterectomy History of bilateral cataract extraction (~2015) History of rectal polypectomy History of colon resection (~2017) Fracture of right hip requiring operative repair (~2016) History of appendectomy <Virginia Mccallum PA-C - Last Filed: 02/07/25 17:09> Family History Family History: Family History Sibling Carcinoma of colon Father Black lung disease Heart disease Hypertension Mother Hypertension Other Diabetes mellitus Family history of arthritis Family history of gout Family history of heart disease in male family member before age 55 Family history of kidney disease <Virginia Mccallum PA-C - Last Filed: 02/07/25 17:09> Social History Social History: Social History Social History: Patient has been had acute rehab since her arterial stent placement in October 2022. She plans to return to [facility]. She reports that she has been multiple times. She her 2nd twice before he of complications of colon cancer. 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 Lifelong nonsmoker. No alcohol or illicit substance use. She designates her son, Ag Marrero, as her surrogate decision maker and she wishes to be a full code. She had 2 sons Justin and Ag. However, Hal is disabled due to multiple strokes. Code status: Full code Smoking status: Never smoker Second hand tobacco smoke exposure: No Alcohol intake: never Substance use: never Substance use type: does not use Do You Feel Safe in your Home?: Yes Lack of Transportation: No Lack of Food: Never True Current Housing: I Have Housing Concerned About Future Housing: No Difficulty Paying Gas/Electric Bills: No Difficulty Paying for Meds: No Currently Unemployed: No Education: High School Diploma/GED Difficulty w/ Childcare or Family Care: No Living arrangements: assisted living Occupation/Education: retired Gender identity (if verbalized by the patient): Female Sexual Orientation (if Verbalized by the Patient): Straight or Heterosexual Spiritual care concerns: No <Virginia Mccallum PA-C - Last Filed: 02/07/25 17:09> Exam Narrative: GENERAL: Elderly, well-nourished, and in no acute distress. HEAD: Normocephalic, atraumatic. EYES: EOMI. CHEST: Clear to auscultation. No respiratory distress. No wheezes rales or rhonchi HEART: Regular rate and rhythm. No murmur heard. Normal peripheral pulses. ABDOMEN: Soft, nontender, nondistended, normal active bowel sounds. EXTREMITIES: Normal range of motion. No edema. SKIN: Warm, dry. Papular rash with excoriations present on the chest and upper back. Dry, scaly patches noted to the scalp NEURO: No focal deficits. Alert and oriented x3. PSYCH: Normal mood and affect <Zina Hughes PA-C - Last Filed: 02/07/25 23:27> Course Vital Signs Vital signs: Vital Signs Temperature 97.6 F 02/07/25 15:56 Pulse Rate 66 02/07/25 15:56 Respiratory Rate 16 02/07/25 15:56 Blood Pressure 153/61 H 02/07/25 15:56 Pulse Oximetry 99 02/07/25 15:56 Oxygen Delivery Room Air 02/07/25 15:56 Temperature 97.9 F 02/07/25 23:06 Pulse Rate 88 02/07/25 23:06 Respiratory Rate 17 02/07/25 23:06 Blood Pressure 147/73 H 02/07/25 23:06 Pulse Oximetry 98 02/07/25 23:06 Oxygen Delivery Room Air 02/07/25 23:06 <Virginia Mccallum PA-C - Last Filed: 02/07/25 17:09> Vital Signs Temperature 97.6 F 02/07/25 15:56 Pulse Rate 66 02/07/25 15:56 Respiratory Rate 16 02/07/25 15:56 Blood Pressure 153/61 H 02/07/25 15:56 Pulse Oximetry 99 02/07/25 15:56 Oxygen Delivery Room Air 02/07/25 15:56 Temperature 97.9 F 02/07/25 23:06 Pulse Rate 88 02/07/25 23:06 Respiratory Rate 17 02/07/25 23:06 Blood Pressure 147/73 H 02/07/25 23:06 Pulse Oximetry 98 02/07/25 23:06 Oxygen Delivery Room Air 02/07/25 23:06 <Zina Hughes PA-C - Last Filed: 02/07/25 23:27> MDM - Skin/Abscess/Foreign Bdy MDM Narrative Medical decision making narrative: Patient presents to the emergency department for a rash. Reports she has been struggling with this on and off for years. Was recently started on ketoconazole shampoo. Does appear consistent with possible seborrheic dermatitis. I did encourage her and her son to have follow-up with Dermatology if this is been a persistent problem for her. Also endorsing some subjective fevers. She is afebrile in the ER and nontoxic appearing. Cbc without leukocytosis. Metabolic panel with kidney function appears around her baseline. Urine with evidence of infection. This was sent for culture. Patient will be started on oral antibiotics. Influenza, RSV and COVID screens are negative. Patient and family updated on workup and agree with plan of care. She is to follow up with PCP. She was given warnings to return to the ER <Zina Hughes PA-C - Last Filed: 02/07/25 23:27> Differential Diagnosis Differential diagnosis: Likely eczema, insect bites, contact dermatitis and other (Summary dermatitis, UTI, pneumonia, viral syndrome) <Zina Hughes PA-C - Last Filed: 02/07/25 23:27> Lab Data Attestation: I reviewed the patient's lab results. <Zina Hughes PA-C - Last Filed: 02/07/25 23:27> Result diagrams: 02/07/25 19:36 02/07/25 19:36 <Virginia Mccallum PA-C - Last Filed: 02/07/25 17:09> Labs: Lab Results 02/07/25 02/07/25 Range/Units 19:36 22:45 WBC 8.1 (4.5-10.0) K/mm3 RBC 3.97 L (4.2-5.4) M/mm3 Hgb 13.0 (12.0-15.0) g/dL Hct 39.5 (37.0-47.0) % MCV 99.5 (80-100) fl MCH 32.7 (26-34) pg MCHC 32.9 (32-36) g/dl RDW 14.4 (11.5-14.5) % Plt Count 178 (150-375) k/mm3 MPV 8.6 (7.4-10.4) fl Immature Gran % (Auto) 0.4 (0-0.5) % Neut % (Auto) 67.9 (45.5-73.1) % Lymph % (Auto) 22.0 (18.3-44.2) % Wilkin % (Auto) 5.6 (2.6-8.5) % Eos % (Auto) 3.6 (0-4.4) % Baso % (Auto) 0.5 (0.2-1.2) % Lymph # (Auto) 1.78 (0.9-3.2) K/mm3 Wilkin # (Auto) 0.5 (0.1-0.6) K/mm3 Eos # (Auto) 0.3 (0-0.3) K/mm3 Baso # (Auto) 0.0 (0.0-0.1) K/mm3 Abs Immat Gran (auto) 0.03 (0.00-0.031) K/mm3 Absolute Neuts (auto) 5.5 (1.3-6.7) K/mm3 Absolute Nucleated RBC 0.000 (0.0-0.012) K/mm3 Nucleated RBC % 0.0 (0.0-0.2) % Sodium 139 (137-145) mmol/L Potassium 4.2 (3.4-5.0) mmol/L Chloride 100 (98-107) mmol/L Carbon Dioxide 28 (22-30) mmol/L Anion Gap 11 (4-12) mmol/L BUN 35 H D (7-17) mg/dL Creatinine 1.51 H (0.7-1.0) mg/dL Estim Creat Clear Calc 23 ml/min Estimated GFR 33 L (59 - ) Glucose 145 H (65-110) mg/dL Calcium 9.9 (8.4-10.2) mg/dL Total Bilirubin 0.3 (0.2-1.3) mg/dL AST 37 H (14-36) U/L ALT 17 (6-35) U/L Alkaline Phosphatase 69 (38-126) U/L Total Protein 7.6 (6.3-8.2) g/dL Albumin 4.3 (3.5-5.1) g/dL Urine Color Yellow (Yellow) Urine Appearance Cloudy H (Clear) Urine pH 5.5 (5.0-9.0) Ur Specific Ajo 1.018 (1.001-1.035) Urine Protein 1+ H (Negative) mg/dL Urine Glucose (UA) 3+ H (Negative) mg/dL Urine Ketones Negative (Negative) mg/dL Ur Blood (Man) Non-hemolyzed trace H (Negative) Urine Nitrate Positive H (Negative) Urine Bilirubin Negative (Negative) Urine Urobilinogen 0.2 (<2.0) mg/dL Add Ur Microanalysis Reviewed Leukocyte Esterase Rfl 3+ H (Negative) USHA/UL Urine RBC 0-2 (0-2) /hpf Urine WBC >100 H (0-3) /hpf Ur Squamous Epith Cells Occasional (Few) /hpf Urine Bacteria 4+ H /hpf Urine Casts 0-2 Urine Yeast (Budding) Present H (None) /hpf Influenza A (RT-PCR) Negative (Negative) Influenza B (RT-PCR) Negative (Negative) RSV (RT-PCR) Negative (Negative) SARS-CoV-2 RNA (RT-PCR) Negative (Negative) <Virginia Mccallum PA-C - Last Filed: 02/07/25 17:09> Lab Results 02/07/25 02/07/25 Range/Units 19:36 22:45 WBC 8.1 (4.5-10.0) K/mm3 RBC 3.97 L (4.2-5.4) M/mm3 Hgb 13.0 (12.0-15.0) g/dL Hct 39.5 (37.0-47.0) % MCV 99.5 (80-100) fl MCH 32.7 (26-34) pg MCHC 32.9 (32-36) g/dl RDW 14.4 (11.5-14.5) % Plt Count 178 (150-375) k/mm3 MPV 8.6 (7.4-10.4) fl Immature Gran % (Auto) 0.4 (0-0.5) % Neut % (Auto) 67.9 (45.5-73.1) % Lymph % (Auto) 22.0 (18.3-44.2) % Wilkin % (Auto) 5.6 (2.6-8.5) % Eos % (Auto) 3.6 (0-4.4) % Baso % (Auto) 0.5 (0.2-1.2) % Lymph # (Auto) 1.78 (0.9-3.2) K/mm3 Wilkin # (Auto) 0.5 (0.1-0.6) K/mm3 Eos # (Auto) 0.3 (0-0.3) K/mm3 Baso # (Auto) 0.0 (0.0-0.1) K/mm3 Abs Immat Gran (auto) 0.03 (0.00-0.031) K/mm3 Absolute Neuts (auto) 5.5 (1.3-6.7) K/mm3 Absolute Nucleated RBC 0.000 (0.0-0.012) K/mm3 Nucleated RBC % 0.0 (0.0-0.2) % Sodium 139 (137-145) mmol/L Potassium 4.2 (3.4-5.0) mmol/L Chloride 100 (98-107) mmol/L Carbon Dioxide 28 (22-30) mmol/L Anion Gap 11 (4-12) mmol/L BUN 35 H D (7-17) mg/dL Creatinine 1.51 H (0.7-1.0) mg/dL Estim Creat Clear Calc 23 ml/min Estimated GFR 33 L (59 - ) Glucose 145 H (65-110) mg/dL Calcium 9.9 (8.4-10.2) mg/dL Total Bilirubin 0.3 (0.2-1.3) mg/dL AST 37 H (14-36) U/L ALT 17 (6-35) U/L Alkaline Phosphatase 69 (38-126) U/L Total Protein 7.6 (6.3-8.2) g/dL Albumin 4.3 (3.5-5.1) g/dL Urine Color Yellow (Yellow) Urine Appearance Cloudy H (Clear) Urine pH 5.5 (5.0-9.0) Ur Specific Ajo 1.018 (1.001-1.035) Urine Protein 1+ H (Negative) mg/dL Urine Glucose (UA) 3+ H (Negative) mg/dL Urine Ketones Negative (Negative) mg/dL Ur Blood (Man) Non-hemolyzed trace H (Negative) Urine Nitrate Positive H (Negative) Urine Bilirubin Negative (Negative) Urine Urobilinogen 0.2 (<2.0) mg/dL Add Ur Microanalysis Reviewed Leukocyte Esterase Rfl 3+ H (Negative) USHA/UL Urine RBC 0-2 (0-2) /hpf Urine WBC >100 H (0-3) /hpf Ur Squamous Epith Cells Occasional (Few) /hpf Urine Bacteria 4+ H /hpf Urine Casts 0-2 Urine Yeast (Budding) Present H (None) /hpf Influenza A (RT-PCR) Negative (Negative) Influenza B (RT-PCR) Negative (Negative) RSV (RT-PCR) Negative (Negative) SARS-CoV-2 RNA (RT-PCR) Negative (Negative) <Zina Hughes PA-C - Last Filed: 02/07/25 23:27> Critical Care Time Critical Care Time Critical Care Time: No <GALDINO Snow Last Filed: 02/07/25 23:27> Discharge Plan Discharge Clinical Impression: Chronic seborrheic dermatitis, Acute UTI <GALDINO Latham Last Filed: 02/07/25 17:09> Patient Disposition: Home <GALDINO Latham Filed: 02/07/25 17:09> Condition: Stable <GALDINO Latham Filed: 02/07/25 17:09> Instructions: Seborrheic Dermatitis (DC), Urinary Tract Infection in Older Adults (ED) <GALDINO Latham Filed: 02/07/25 17:09> Additional Instructions: Return to the emergency department if you experience fever, redness and swelling of your wounds, abnormal drainage from your wounds, or any other symptoms that are concerning to you Take a Pepcid and Zyrtec daily. Apply ketoconazole shampoo as prescribed. Hydroxyzine as needed for severe itching. Take oral antibiotic as prescribed Follow-up with your primary care doctor and Dermatology <GALDINO Latham Last Filed: 02/07/25 17:09> Patient Language: Lao <GALDINO Latham Filed: 02/07/25 17:09> Prescriptions: New cefdinir 300 mg capsule 300 mg PO Q12H 5 Days Qty: 10 0RF hydroxyzine HCl 25 mg tablet 25 mg PO BID PRN (Reason: itching) Qty: 10 0RF No Action Januvia 100 mg tablet 100 mg PO DAILY magnesium oxide 400 mg magnesium capsule 400 mg PO DAILY metoprolol tartrate 50 mg tablet 50 mg PO Q12H Qty: 180 3RF Jardiance 25 mg tablet 25 mg PO DAILY Qty: 90 1RF insulin glargine [Lantus U-100 Insulin] 100 unit/mL solution 30 unit subcut HS Qty: 10 5RF insulin lispro [Humalog KwikPen Insulin] 100 unit/mL insulin pen See Rx Instructions subcut TID Qty: 15 3RF Rx Instructions: subcutaneously three times a day; 10 units with breakfast and lunch, 12-15 units with dinner. omeprazole 20 mg capsule,delayed release(DR/EC) 20 mg PO DAILY Qty: 90 0RF allopurinol 100 mg tablet 200 mg PO DAILY Qty: 180 1RF calcium carbonate 600 mg calcium (1,500 mg) tablet 600 mg PO BID ezetimibe 10 mg tablet 10 mg PO DAILY Qty: 90 4RF ferrous sulfate [FeroSul] 325 mg (65 mg iron) tablet 325 mg PO DAILY Qty: 30 2RF simvastatin 40 mg tablet 40 mg PO HS bisacodyl 10 mg Suppository 10 mg RECTAL DAILY PRN (Reason: Constipation) Rx Instructions: PRN for constipation if no results for MOM cholecalciferol (vitamin D3) 1,250 mcg (50,000 unit) Capsule 1,250 mcg PO WEEKLY Rx Instructions: every tuesday Centrum Adults 12 mcg Tablet,Chewable 1 tablet PO DAILY acetaminophen 500 mg capsule 500 mg PO Q6H PRN (Reason: Pain (Scale Score 1-3)) furosemide 20 mg tablet 20 mg PO QAM Qty: 90 0RF (DME) OneTouch Verio test strips Strip See Rx Instructions .Route Qty: 100 0RF Rx Instructions: use to check blood sugar once a day glucose [Dex4 Glucose] 4 gram tablet,chewable 4 g PO Q15M PRN (Reason: hypoglycemia) Qty: 7 0RF Rx Instructions: until symptoms of low blood sugar are controlled (DME) Depend Easy Fit Undergarments Misc See Rx Instructions .Route Qty: 120 0RF Rx Instructions: use daily for urinary incontinence trazodone 50 mg tablet 50 mg PO QHS Qty: 90 2RF loperamide 2 mg capsule See Rx Instructions .ROUTE .COMPLEX Qty: 60 2RF Dose Instruction: TAKE 1 CAPSULE BY MOUTH FOUR TIMES DAILY NEEDED Rx Instructions: TAKE 1 CAPSULE BY MOUTH FOUR TIMES DAILY NEEDED meclizine 12.5 mg tablet See Rx Instructions .ROUTE .COMPLEX Qty: 60 0RF Dose Instruction: TAKE 1 TABLET BY MOUTH EVERY 12 HOURS NEEDED FOR DIZZINESS Rx Instructions: TAKE 1 TABLET BY MOUTH EVERY 12 HOURS NEEDED FOR DIZZINESS fluticasone propionate 50 mcg/actuation spray,suspension See Rx Instructions .ROUTE .COMPLEX Qty: 16 2RF Dose Instruction: USE 1 SPRAY IN EACH NOSTRIL TWICE DAILY IN THE MORNING AND AT BEDTIME Rx Instructions: USE 1 SPRAY IN EACH NOSTRIL TWICE DAILY IN THE MORNING AND AT BEDTIME (DME) Novofine Autocover 30 gauge x 1/3 needle See Rx Instructions .Route Qty: 100 4RF Rx Instructions: As directed colchicine 0.6 mg tablet 0.6 mg PO .COMPLEX Qty: 5 0RF Rx Instructions: 2 po once, then one po q1 hr x 3 triamcinolone acetonide 0.1 % cream 1 applic topical BID Qty: 30 0RF Rx Instructions: apply to affected area twice daily for no more than 2 weeks tramadol 50 mg tablet 50 mg PO QID Qty: 120 0RF ketoconazole 2 % shampoo 1 applic topical 3XW Qty: 120 1RF Rx Instructions: use Tuesday, Tuesday, Tuesday. <Virginia Mccallum PA-C - Last Filed: 02/07/25 17:09> Follow-up/Referrals: Christopher Aguiar MD [Primary Care Provider] - <Virginia Mccallum PA-C - Last Filed: 02/07/25 17:09>
[2025-02-07 19:31] VITALS: BP 147/65; PULSE 79; RESP 18; TEMP 36.8; O2SAT 100
[2025-02-07 19:41] LABS: Hematocrit 39.5 % (37.0-47.0); Hemoglobin 13.0 g/dL (12.0-15.0); Immature Granulocyte Percent A 0.4 % (0-0.5); Lymphocytes Absolute Auto 1.78 K/mm3 (0.9-3.2); Mean Corpuscular HGB Conc 32.9 g/dl (32-36); Mean Corpuscular Hemoglobin 32.7 pg (26-34); Mean Corpuscular Volume 99.5 fl (80-100); Nucleated Red Blood Cells Absolute Auto 0.000 K/mm3 (0.0-0.012); Nucleated Red Blood Cells Perc 0.0 % (0.0-0.2); Platelet Count Result 178 k/mm3 (150-375); Red Blood Count 3.97 M/mm3 (4.2-5.4); White Blood Count 8.1 K/mm3 (4.5-10.0)
[2025-02-07 20:11] LABS: Alanine Aminotransferase 17 U/L (6-35); Albumin Level 4.3 g/dL (3.5-5.1); Alkaline Phosphatase 69 U/L (38-126); Anion Gap 11 mmol/L (4-12); Aspartate Amino Transferase 37 U/L (14-36); Bilirubin,Total 0.3 mg/dL (0.2-1.3); Blood Urea Nitrogen 35 mg/dL (7-17); Calcium 9.9 mg/dL (8.4-10.2); Carbon Dioxide 28 mmol/L (22-30); Chloride 100 mmol/L (98-107); Estimated CRCL calculation 23 ml/min; Estimated Glomerular Filt Rate 33; Glucose 145 mg/dL (65-110); Potassium 4.2 mmol/L (3.4-5.0); Sodium 139 mmol/L (137-145); Total Protein 7.6 g/dL (6.3-8.2)
[2025-02-07 20:18] LABS: Influenza A QL RT-PCR Negative (Negative); Influenza B QL RT-PCR Negative (Negative); RSV RNA, RT-PCR Negative (Negative); SARS-CoV-2 RNA PCR Negative (Negative)
--- OUTSIDE RECORDS SUMMARY | 2025-02-07 22:16 | XMS_ITS | Clinical Summary ---
Author Organization [facility] Address [address] [place] [phone] Care Team Providers Care Instructional Support Assistant Name Role Phone Jaye Smiley MD Unavailable [phone] Iliana Evans Primary Care Provide r [...] problem. Managed by renal Dr Smiley at [place]. 08/25/21 GFR=35, CR=1.37. Assessment & Plan (04/07/2023 1:48 PM CDT): Chronic problem. Managed by renal Dr Smiley at [place]. ALEXANDER 02/07/23; NOV 06/13/23. 08/25/21 GFR=35, CR=1.37. Had labs completed 01/[address] Smiley. Will have her sign release to get copy of labs from his office and/or [facility]. Chronic kidney disease 12/02/2022 Assessment & Plan (12/02/2022 1:58 PM CDT): Chronic problem. Managed by Dr Jordi Smiley at [facility]. Next OV 02/07/23. 03/11/22 GFR=37, CR=1.40. 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 Last lipid panel: 03/11/22 LDL=72, NF=741. Will update labs today. Does not mychart. Verified phone #/address to contact re: results. Assessment & Plan (04/07/2023 1:16 PM CDT): Chronic problem, currently taking Simvastatin 40mg, zetia 10mg. Last lipid panel: 03/11/22 LDL=72, QQ=480. No changes at this time. Assessment & Plan (01/25/2023 2:30 PM CDT): Chronic problem, currently taking Simvastatin 40mg, zetia 10mg. Last lipid panel: 03/11/22 LDL=72, PW=495. No changes at this time. Assessment & Plan (12/02/2022 1:01 PM CDT): Chronic problem, currently taking Simvastatin 40mg, zetia 10mg. Last lipid panel: 03/11/22 LDL=72, XL=043. No changes at this time. Assessment & [...] infection. Assessment & Plan (08/11/2023 2:02 PM MERCANTILE REPORTER): Hba1c was Lab Results Component Value Date [...] today. Reports DM eye exam 2021 at [facility] in [place], [place]. Letter sent to get copy of [...] Januvia Assessment & Plan (08/14/2020 2:20 PM MERCANTILE REPORTER): Hba1c was Lab Results Component Value Date [...] reviewed. Assessment & Plan (07/05/2019 2:12 PM MERCANTILE REPORTER): A1c 6.3 without reported hypoglycemia. Continue metformin and Januvia. Will check labs. Continue follow up with podiatry. BG and A1c goals reviewed. Assessment & Plan (06/20/2018 1:45 PM MERCANTILE REPORTER): Hba1c was Lab Results Component Value Date [...] metformin Assessment & Plan (09/08/2017 10:58 AM MERCANTILE REPORTER): Hba1c was 5.8 today, indicating proper DM [...] meds Assessment & Plan (07/05/2019 2:12 PM MERCANTILE REPORTER): Controlled on current medications. Continue plan. Assessment & Plan (09/08/2017 10:55 AM MERCANTILE REPORTER): Goal blood pressure is less than 140/85 Low salt diet recommended Daily aerobic exercise Continue current meds, including BELIA-I or ARB Mixed hyperlipidemia 09/08/2017 023 Assessment & Plan (02/07/2020 2:52 PM CDT): Continue statin therapy Assessment & Plan (11/08/2019 1:40 PM CDT): Continue statin therapy Assessment & Plan (07/05/2019 2:13 PM MERCANTILE REPORTER): Check lipid panel Assessment & Plan (09/08/2017 11:00 AM MERCANTILE REPORTER): Goal of treatment , LDL cholesterol less than 100 ( less than 70 in patients with history of heart attacks and / or strokes ) NonHDL cholesterol goal less than 130 ( less than 100 in patients with history of heart attacks and / or strokes ) Continue statin therapy Encounters Date Type Department Care Team Description 12/17/2024 1:00 PM CDT Office Visit [facility] Cardiology [address] [place] [id number] Chandrika Miller NP Chronic diastolic heart failure (HCC) (Primary Dx); Mild aortic stenosis from Last 3 Months Surgical History Surgery Date Site/Laterality Comments OTHER SURGICAL HISTORY colon perforation: Hand Assist Laparoscopic Right Colectomy HYSTERECTOMY hysterectomy Medical History Medical History Date Comments Diabetes mellitus (HCC) Diabetes mellitus; Comments: [facility] 12/27/2013 - Hx Other Medical neuropathy; Com ments: [facility] 12/27/2013 - Hx Other Medical hyperlipidemia; Comments: [facility] 12/27/2013 - Hx Other Medical kidney problems ; Comments: [facility] 12/27/2013 - Hx Other Medical L foot ulcers; Comments: [facility] 12/27/2013 - Hx Other Medical not claustropho bic; Comments: [facility] 01/30/2014 - Hx Other Medical colon perforati on; Comments: [facility] 05/14/2015 - Diabetes mellitus (HCC) Diabetes mellitus; Comments: [facility] 05/14/2015 - Hypertension Hypertension Hyperlipidemia Hyperlipidemia; Comments: [facility] 05/14/2015 - Fracture closed, humerus Gout Family [...] on file Legal Sex Female 9:25 AM MERCANTILE REPORTER Gender Identity Not on file Sexual Orientation Not on file Obstetrics History Last Filed Vital Signs Vital Sign Reading Time Taken Comments Blood Pressure 142/64 12/17/2024 1:03 PM CDT Pulse 66 12/17/2024 1:03 PM CDT Temperature 35.9 C (96.7 F) 08/08/2019 1:23 PM MERCANTILE REPORTER Respiratory Rate 18 12/15/2023 1:28 PM CDT [...] BASIC METABOLIC PANEL Routine 08/25/2021 1:21 PM MERCANTILE REPORTER Chronic diastolic heart failure (HCC) POCT LIPID PANEL Routine 03/19/2021 11:2 8 AM CDT Type 2 diabetes mellitus with hyperglycemia, unspecified whether terminologist insulin use (HCC) from Last 3 [...] 12/08/2022 12:11 PM CDT Performed at: - [address] [id number] Pecan Grower: Rob Sierra PhD, Phone: [phone] us Linette Allen NP LAB URINE ORDERABLES Tiffanie l Result [facility] * (ABNORMAL) Basic metabolic panel (08/25/2021 1:21 PM MERCANTILE REPORTER) Glucose 146(H) 65 - 99 mg/dL [facility] - 01 BUN 56(H) 8 - 27 mg/dL [facility] - 01 Creatinine, Serum 1.37(H) 0.57 - 1.00 mg/dL [facility] - 01 eGFR If NonAfricn Am 35(L) >59 mL/min/1. 73 [facility] - 01 eGFR If Africn Am 41(L) >59 mL/min/1. 73 [facility] - 01 Comment: In accordance with recommendations from the NKF-ASN Task force, [facility] is in the process of updating its [...] 01 Blood specimen (specimen) 08/25/2021 1:21 PM MERCANTILE REPORTER 08/25/2021 Narrative [facility] - 08/26/2021 6:09 AM MERCANTILE REPORTER Performed at: [facility] [address] [id number] Pecan Grower: Rob Sierra PhD, Phone: [phone] us Xiomara Reynolds NP LAB BLOOD ORDERABLES Final R esult [facility] - 01 * POCT lipid panel (03/19/2021 11:28 AM CDT) [facility] Signature Cholesterol, POC 152 mg/dL HDL, POC 47 mg/dL Triglycerides, POC 111 mg/dL LDL Cholesterol POC 83 mg/dL Chol/HDL Ratio, POC 3.3 Non-HDL Cholesterol, POC 106 mg/dL Capillary blood 03/19/2021 1 1:28 AM CDT us Shashank Li MD POINT OF CARE TEST ORDERABLES Fi nal Result from Last 3 Months or Most Recently Relevant to Health Maintenance Insurance [facility] MEDICARE ADVANTAGE [facility] MEDICARE Address: [facility] [address] [place] [address] [facility] MDCR HMO REF [facility] MEDICARE Address: [address] [address] [place] [address] [facility] MEDICARE ADVANTAGE [facility] MEDICARE Address: [address] [address] [place] [address] [facility] MEDICARE ADVANTAGE [facility] MEDICARE Address: [address] [address] [place] [address] Advance Directives For more information, please contact: [phone] Documents on File Type Date Recorded Patient Media Buyer Expl anation Power of Lens Edge Grinder Machine 05/24/2024 1:13 PM Care Teams Instructional Support Assistant Relationship Specialty Start Date End Date Iliana Evans PA [address] [place] [address] PCP - General Physician Jig Borer 12/17/24 Jaye Smiley MD [address] [facility] [address] [place] [address] Referring Physician Nephrology 04/07/23
--- OUTSIDE RECORDS SUMMARY | 2025-02-07 22:16 | XMS_ITS | Referral Summary ---
Author Organization [facility] Address [address] [place] [address] Care Team Providers Care Pottery Decorator Name Role Phone Jaye Smiley MD Unavailable [phone] Iliana Evans Primary Care Provide r Encounters Date Type Department Care Team Description 12/17/2024 1:00 PM CDT Office Visit [facility] Cardiology [address] [facility] [address] [place] [address] Chandrika Miller NP Chronic diastolic [...] problem. Managed by renal Dr Smiley at [place]. 08/25/21 GFR=35, CR=1.37. Assessment & Plan (04/07/2023 1:48 PM CDT): Chronic problem. Managed by renal Dr Smiley at [place]. ALEXANDER 02/07/23; NOV 06/13/23. 08/25/21 GFR=35, CR=1.37. Had labs completed 01/[address] Smiley. Will have her sign release to get copy of labs from his office and/or [facility]. Chronic kidney disease 12/02/2022 Assessment & Plan (12/02/2022 1:58 PM CDT): Chronic problem. Managed by Dr Jordi Smiley at [facility]. Next OV 02/07/23. 03/11/22 GFR=37, CR=1.40. 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 Last lipid panel: 03/11/22 LDL=72, OT=361. Will update labs today. Does not mychart. Verified phone #/address to contact re: results. Assessment & Plan (04/07/2023 1:16 PM CDT): Chronic problem, currently taking Simvastatin 40mg, zetia 10mg. Last lipid panel: 03/11/22 LDL=72, TF=806. No changes at this time. Assessment & Plan (01/25/2023 2:30 PM CDT): Chronic problem, currently taking Simvastatin 40mg, zetia 10mg. Last lipid panel: 03/11/22 LDL=72, KH=327. No changes at this time. Assessment & Plan (12/02/2022 1:01 PM CDT): Chronic problem, currently taking Simvastatin 40mg, zetia 10mg. Last lipid panel: 03/11/22 LDL=72, TH=137. No changes at this time. Assessment & [...] infection. Assessment & Plan (08/11/2023 2:02 PM NURSE RESEARCH): Hba1c was Lab Results Component Value Date [...] Reports DM eye exam 2021 at [facility] in [place], [place]. Letter sent to get copy of [...] Januvia Assessment & Plan (08/14/2020 2:20 PM NURSE RESEARCH): Hba1c was Lab Results Component Value Date [...] reviewed. Assessment & Plan (07/05/2019 2:12 PM NURSE RESEARCH): A1c 6.3 without reported hypoglycemia. Continue metformin and Januvia. Will check labs. Continue follow up with podiatry. BG and A1c goals reviewed. Assessment & Plan (06/20/2018 1:45 PM NURSE RESEARCH): Hba1c was Lab Results Component Value Date [...] metformin Assessment & Plan (09/08/2017 10:58 AM NURSE RESEARCH): Hba1c was 5.8 today, indicating proper DM [...] meds Assessment & Plan (07/05/2019 2:12 PM NURSE RESEARCH): Controlled on current medications. Continue plan. Assessment & Plan (09/08/2017 10:55 AM NURSE RESEARCH): Goal blood pressure is less than 140/85 Low salt diet recommended Daily aerobic exercise Continue current meds, including BELIA-I or ARB Mixed hyperlipidemia 09/08/2017 023 Assessment & Plan (02/07/2020 2:52 PM CDT): Continue statin therapy Assessment & Plan (11/08/2019 1:40 PM CDT): Continue statin therapy Assessment & Plan (07/05/2019 2:13 PM NURSE RESEARCH): Check lipid panel Assessment & Plan (09/08/2017 11:00 AM NURSE RESEARCH): Goal of treatment , LDL cholesterol less [...] on file Legal Sex Female 9:25 AM NURSE RESEARCH Gender Identity Not on file Sexual Orientation Not on file Last Filed Vital Signs Vital Sign Reading Time Taken Comments Blood Pressure 142/64 12/17/2024 1:03 PM CDT Pulse 66 12/17/2024 1:03 PM CDT Temperature 35.9 C (96.7 F) 08/08/2019 1:23 PM NURSE RESEARCH Respiratory Rate 18 12/15/2023 1:28 PM CDT [...] BASIC METABOLIC PANEL Routine 08/25/2021 1:21 PM NURSE RESEARCH Chronic diastolic heart failure (HCC) POCT LIPID PANEL Routine 03/19/2021 11:2 8 AM CDT Type 2 diabetes mellitus with hyperglycemia, unspecified whether continuous churn buttermaker insulin use (HCC) from Last 3 Months [...] - 12/08/2022 12:11 PM CDT Performed at: [address] [place] [id number] Statistical Machine Mechanic: Rob Sierra PhD, Phone: [phone] us Linette Allen PUBLIC RELATIONS REPRESENTATIVE LAB URINE ORDERABLES Tiffanie l Result [facility] - * (ABNORMAL) Basic metabolic panel (08/25/2021 1:21 PM NURSE RESEARCH) [facility] Glucose 146(H) 65 - 99 mg/dL [facility] - 01 BUN 56(H) 8 - 27 mg/dL [facility] - 01 Creatinine, Serum 1.37(H) 0.57 - 1.00 mg/dL [facility] - 01 eGFR If NonAfricn Am 35(L) >59 mL/min/1. 73 [facility] - 01 eGFR If Africn Am 41(L) >59 mL/min/1. 73 [facility] - 01 Comment: In accordance with recommendations from the NKF-ASN Task force, [facility] is in the process of updating [...] 01 Blood specimen (specimen) 08/25/2021 1:21 PM NURSE RESEARCH 08/25/2021 Narrative [facility] - 08/26/2021 6:09 AM NURSE RESEARCH Performed at: [address] [place] [id number] Statistical Machine Mechanic: Rob Sierra PhD, Phone: [phone] us Xiomara Reynolds PUBLIC RELATIONS REPRESENTATIVE LAB BLOOD ORDERABLES Final R esult [facility] [...] Most Recently Relevant to Health Maintenance Insurance [facility] MEDICARE ADVANTAGE [facility] Address: [place] [id number] [address] MDCR HMO REF [facility] MEDICARE Address: [address] [address] [place] [address] [facility] MEDICARE ADVANTAGE [facility]IC[facility] Address: [address] [address] [place] [address] [facility] MEDICARE ADVANTAGE [facility]IC[facility] Address: [address] [address] [place] [address] Advance Directives For more information, please contact: [phone] Documents on File Type Date Recorded Patient Technical Sales Advisor Expl anation Power of Senior Power Scheduler 05/24/2024 1:13 PM Care Teams Pottery Decorator Relationship Specialty Start Date End Date Iliana Evans PA [address] [place] [id number] PCP - General Physician Program Rep 12/17/24 Jaye Smiley MD [address] [facility] [address] [place] [address] Referring Physician Nephrology 04/07/23
--- OUTSIDE RECORDS SUMMARY | 2025-02-07 22:17 | XMS_ITS | Clinical Summary ---
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 ([facility]/HCC [facility]) USE TO CHECK BLOOD SUGAR TWICE [...] 05/08/2021 Nephropathy due to secondary diabetes mellitus ([facility]) 05/08/2021 Stage 3 chronic kidney disease 05/08/2021 Urinary tract infectious disease 05/08/2021 Cellulitis of lower extremity, unspecified later ality 05/08/2021 Aortic stenosis 04/29/2021 Bradycardia 04/29/2021 Diastolic congestive heart failure ([facility]) 04/29/2021 Chronic diastolic heart failure ([facility] ) 04/29/2021 Hyperlipidemia associated wi th type 2 diabetes mellitus ([facility]) 03/19/2021 Overview (05/08/2021): Last Assessment & Plan: Lipid checked today Continue Simvastatin Vertigo 02/11/2021 Primary hypertension 02/11/2021 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 ([facility]) 12/28/2018 Overview (05/08/2021): Last Assessment & [...] or gangrene 0 08/10/2016 Perforation of colon ([facility]) 5 Overview (05/08/2021): Perforation of colon Anemia due to chronic blood loss 04/21/2015 Overview (05/08/2021): Chronic blood loss anemia Angiodysplasia of colon 04/21/2015 Overview (05/08/2021): AVM (arteriovenous malformation) of colon Resolved Problems Problem Noted Date Diagnosed Date Resolved Date 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 They can recheck CBC at follow up to r/o sx d/t ELIECER. Diabetes mellitus ([facility]) 09/08/2017 06/19/2021 Overview (05/08/2021): Last Assessment & Plan: Continue with Januvia Immunizations Immunization Administration Dates Next Due Hepatitis A (Generic) 02/10/2000,07/27/1999 Hepatitis A (Havrix 1440 [address]) 02/10/2000,1998 Pneumococcal (Pneumovax 23) 01/25/2011, 9 Pneumococcal (Prevnar 13) 04/18/2018 Shingrix 01/19/2022,11/10/2021 Td 01/20/2017 Zoster (Zostavax) 17645 Unt/0.65Ml 11/12/2011 Family History Medical History Relation [...] 08/03/2021, 02/04/2021, Additional history exists PHQ-2 (Physician [place]) 08/01/2024 Annual Medicare Wellness Visit 02/07/2025 Postponed [...] - 03/12/2022 8:15 AM CDT Performed at: [address] [place] [id number] Intern Brand: Rob Sierra PhD, Phone: [phone] us Kobi Watkins MD LABORATORY Final Resul t [facility] [address] [place] [address] [facility] 1 * (ABNORMAL) LIPID PANEL (03/11/2022 [...] AM CDT Performed at: 01 - [facility] [address] [id number] Intern Brand: Rob Sierra PhD, Phone: [phone] us Kobi Watkins MD LABORATORY Final Resul t [facility] [address] [place] [address] [facility] 1 from Last 3 Months or Most Recently Relevant to Health Maintenance Insurance [place] [address]
--- OUTSIDE RECORDS SUMMARY | 2025-02-07 22:17 | XMS_ITS | Encounter Summary ---
Author Organization [facility] Address [address] [facility] [address] [place] [address] Care Team Providers Care Jail Manager Name Role Phone Kobi Watkins MD Primary Care Provider [phone] Kobi Watkins MD Primary Care Provider [phone] Molly Fagan MD Primary Care Provider Jaye Smiley MD Unavailable [phone] Iliana Evans Primary Care Provide r Encounter Details Date Type Department Care Team (Late st Contact Info) Description 10/19/2016 Orders Only [facility] ProviderGregory MD [address] [place] [id number] Social History Tobacco Use Types Packs/Day Years Used Date Smoking Tobacco: Never Alcohol Use Standard Drinks/Week Comments No 0 (1 standard drink = 0.6 oz pur e alcohol) Comments Unknown Sex and Gender Information Value Date Recorded Sex Assigned at Not on file Legal Sex Female 9:25 AM MONTESSORI TODDLER TEACHER Gender Identity Not on file Sexual Orientation [...] on filedocumented in this encounter Care Teams Jail Manager Relationship Specialty Start Date End Date Kobi Watkins MD PCP - General 10/29/16 05/05/22 Kobi Watkins MD PCP - General 10/12/16 10/28/16 Molly Fagan MD [address] [facility] [address] [place] [address] PCP - General Family Medicine 05/06/22 12/16/24 Iliana Evans PA [address] [facility] [address] [place] [address] PCP - General Physician Medical Technologist Chief 12/17/24 Jaye Smiley MD [facility] [facility] [address] [place] [address] Referring Physician Nephrology 04/07/23 documented as of this encounter
--- OUTSIDE RECORDS SUMMARY | 2025-02-07 22:17 | XMS_ITS | Clinical Summary ---
Author Organization [facility] Address [address] [facility] [place] [address] Care Team Providers Care Newspaper Photographer Name Role Phone Jhon Riley MD Unavailable [phone] Carrol Chun RN Unavailable Unavailab Molly Gill MD Primary Care Provider + Source Comments [facility],non-owned Affiliates and Associated Physician Practices is amultiple site organization consisting of ambulatory clinics and hospital sitesin [place], [place], [place] and [place]. This disclosure is being madepursuant to the Care Everywhere program and may not contain all information available regarding this patient. Last updated 18.[facility] Allergies Active Allergy Reactions Criticality Noted Date [...] fluticasone propionate (FLONASE) 50 MCG/ACT nasal spray [place] 1 [place] into each nostril once daily 04/28/20 16 [...] on file Legal Sex Female 6:15 AM LEI MAKER Gender Identity Not on file Sexual Orientation Not on file Last Filed Vital Signs Vital Sign Reading Time Taken Comments Blood Pressure 171/76 08/19/2016 12:08 PM LEI MAKER Pulse 78 08/19/2016 8:20 AM LEI MAKER Temperature 36.9 C (98.4 F) 08/19/2016 12:08 PM LEI MAKER Respiratory Rate 18 08/19/2016 12:08 PM LEI MAKER Oxygen Saturation 98% 08/19/2016 12:08 PM LEI MAKER Inhaled Oxygen Concentration - - Weight 73.2 [...] complete this topic Insurance MANAGED MEDICARE ADV [address] [place] [id number] [facility] MANAGED MEDICARE ADV [facility] MANAGED MEDICARE ADV Advance Directives * Full Code (Latest Code Status on File) Date Activated Date Inactivated Comments 08/10/2016 9:42 PM 08/19/2016 5:12 PM * Full Code Date Activated Date Inactivated Comments 08/10/2016 11:31 AM 08/10/2016 9:42 PM Care Teams Newspaper Photographer Relationship Specialty Start Date End Date Molly Fagan MD [address] [place] [id number] PCP - General 09/10/22 Jhon Riley MD [address] [address] General Surgery 06/16/16 Carrol Chun, RN Registered Nurse - Cardiopulmonary Rehab 08/16/16
--- OUTSIDE RECORDS SUMMARY | 2025-02-07 22:17 | XMS_ITS | Encounter Summary ---
Author Organization [facility] Medical [facility] Address [address] [facility] [place] [address] Care Team Providers Care Software Licensing Analyst Name Role Phone Kobi Watkins MD Primary Care Provider +1- [phone] Kobi Watkins MD Primary Care Provider +1- [phone] Kobi Watkins MD Primary Care Provider +1- [phone] Kobi Watkins MD Primary Care Provider +1- [phone] Molly Fagan MD Primary Care Provider Jyae Smiley MD Unavailable [phone] Iliana Evans Primary Care Provide r Encounter Details Date Type Department Care Team (Late st Contact Info) Description 01/21/2015 Orders Only [facility] [place] Health Information Management [address] [place] [address] Scanning, Provider Social History Tobacco Use Types Packs/Day Years Used Date Smoking Tobacco: Never Assessed Comments Unknown Sex and Gender Information Value Date Recorded Sex Assigned at Not on file Legal Sex Female 9:25 AM KNITTER HELPER Gender Identity Not on file Sexual Orientation [...] on filedocumented in this encounter Care Teams Software Licensing Analyst Relationship Specialty Start Date End Date Kobi Watkins MD PCP - General 10/29/16 05/05/22 Kobi Watkins MD PCP - General 10/12/16 10/28/16 Kobi Watkins MD PCP - General 04/21/15 10/11/16 Kobi Watkins MD PCP - General 12/03/14 04/20/15 Molly Fagan MD [address] [place] [address] PCP - General Family Medicine 05/06/22 12/16/24 Iliana Evans PA [address] [place] [address] PCP - General Physician Saturation Diver 12/17/24 Jaye Smiley MD [address] [facility] [address] [place] [address] Referring Physician Nephrology 04/07/23 documented as of this encounter
--- OUTSIDE RECORDS SUMMARY | 2025-02-07 22:17 | XMS_ITS | Encounter Summary ---
Author Organization [facility] Medical Group Address [address] [place] [address] Care Team Providers Care Cargo Handler Name Role Phone Kobi Watkins MD Primary Care Provider +1- [phone] Kobi Watkins MD Primary Care Provider +- [phone] Kobi Watkins MD Primary Care Provider + [phone] Kobi Watkins MD Primary Care Provider + [phone] Kobi Watkins MD Primary Care Provider +- [phone] Kobi Watkins MD Primary Care Provider +1- [phone] Molly Fagan MD Primary Care Provider Jaye Smiely MD Unavailable [phone] Iliana Evans Primary Care Provide r Encounter Details Date Type Department Care Team (Late st Contact Info) Description 04/19/2014 Orders Only [facility] [place] Health Information Management [address] [place] [address] Scanning, Provider Social History Tobacco Use Types Packs/Day Years Used Date Smoking Tobacco: Never Assessed Comments Unknown Sex and Gender Information Value Date Recorded Sex Assigned at Not on file Legal Sex Female 9:25 AM RN TRANSPORT Gender Identity Not on file Sexual Orientation [...] on filedocumented in this encounter Care Teams Cargo Handler Relationship Specialty Start Date End Date Kobi Watkins MD PCP - General 10/29/16 05/05/22 Kobi Watkins MD PCP - General 10/12/16 10/28/16 Kobi Watkins MD PCP - General 04/21/15 10/11/16 Kobi Watkins MD PCP - General 12/03/14 04/20/15 Kobi Watkins MD PCP - General 10/01/14 12/02/14 Kobi Watkins MD PCP - General 01/30/14 09/30/14 Molly Fagan MD [address] [place] [address] PCP - General Family Medicine 05/06/22 12/16/24 Iliana Evans PA [address] [place] [address] PCP - General Physician Postmaster Relief 12/17/24 Jaye Smiley MD [address] [facility] [address] [place] [address] Referring Physician Nephrology 04/07/23 documented as of this encounter
--- OUTSIDE RECORDS SUMMARY | 2025-02-07 22:17 | XMS_ITS | Encounter Summary ---
Author Organization [facility] Medical [facility] Address [address] [facility] [facility] [address] [place] [address] Care Team Providers Care Customer Service Representative Teacher Name Role Phone Kobi Watkins MD Primary Care Provider +1- [phone] Kobi Watkins MD Primary Care Provider +- [phone] Kobi Watkins MD Primary Care Provider +- [phone] Kobi Watkins MD Primary Care Provider + [phone] Kobi Watkins MD Primary Care Provider +- [phone] Kobi Watkins MD Primary Care Provider +1- [phone] Molly Fagan MD Primary Care Provider Jaye Smiley MD Unavailable [phone] Iliana Evans Primary Care Provide r Encounter Details Date Type Department Care Team (Late st Contact Info) Description 06/11/2014 Orders Only [facility] [place] Health Information Management [address] [place] [address] Scanning, Provider Social History Tobacco Use Types Packs/Day Years Used Date Smoking Tobacco: Never Assessed Comments Unknown Sex and Gender Information Value Date Recorded Sex Assigned at Not on file 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 Gender Identity Not on file Sexual Orientation [...] on filedocumented in this encounter Care Teams Customer Service Representative Teacher Relationship Specialty Start Date End Date Kobi Watkins MD PCP - General 10/29/16 05/05/22 Kobi Watkins MD PCP - General 10/12/16 10/28/16 Kobi Watkins MD PCP - General 04/21/15 10/11/16 Kobi Watkins MD PCP - General 12/03/14 04/20/15 Kobi Watkins MD PCP - General 10/01/14 12/02/14 Kobi Watkins MD PCP - General 01/30/14 09/30/14 Molly Fagan MD [address] [facility] [address] [place] [address] PCP - General Family Medicine 05/06/22 12/16/24 Iliana Evans PA [address] [place] [address] PCP - General Physician Powerhouse Mechanic 12/17/24 Jaye Smiley MD [address] [facility] [address] [place] [address] Referring Physician Nephrology 04/07/23 documented as of this encounter
--- OUTSIDE RECORDS SUMMARY | 2025-02-07 22:17 | XMS_ITS | Encounter Summary ---
Author Organization [facility] Medical [facility] Address [address] [place] [address] Care Team Providers Care Satellite Installation Technician Name Role Phone Kobi Watkins MD Primary Care Provider +1- [phone] Kobi Watkins MD Primary Care Provider +- [phone] Kobi Watkins MD Primary Care Provider +- [phone] Kobi Watkins MD Primary Care Provider + [phone] Kobi Watkins MD Primary Care Provider +1- [phone] Molly Fagan MD Primary Care Provider Jaye Smiley MD Unavailable Iliana Evans Primary Care Provide r Encounter Details Date Type Department Care Team (Late st Contact Info) Description 10/25/2014 Orders Only [facility] Health Information Management [address] [place] [address] Scanning, Provider Social History Tobacco Use Types Packs/Day Years Used Date Smoking Tobacco: Never Assessed Comments Unknown Sex and Gender Information Value Date Recorded Sex Assigned at Not on file 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 Gender Identity Not on file Sexual [...] on filedocumented in this encounter Care Teams Satellite Installation Technician Relationship Specialty Start Date End Date Kobi Watkins MD PCP - General 10/29/16 05/05/22 Kobi Watkins MD PCP - General 10/12/16 10/28/16 Kobi Watkins MD PCP - General 04/21/15 10/11/16 Kobi Watkins MD PCP - General 12/03/14 04/20/15 Kobi Watkins MD PCP - General 10/01/14 12/02/14 Molly Fagan MD [address] [place] [address] PCP - General Family Medicine 05/06/22 12/16/24 Iliana Evans PA [address] [place] [address] PCP - General Physician Back Digger Operator 12/17/24 Jaye Smiley MD [address] [facility] [address] [place] [address] Referring Physician Nephrology 04/07/23 documented as of this encounter
--- OUTSIDE RECORDS SUMMARY | 2025-02-07 22:17 | XMS_ITS | Encounter Summary ---
Author Organization [facility] Medical Group Address [address] [place] [address] Care Team Providers Care Rock Picker Name Role Phone Kobi Watkins MD Primary Care Provider +1- [phone] Kobi Watkins MD Primary Care Provider +- [phone] Kobi Watkins MD Primary Care Provider +- [phone] Kobi Watkins MD Primary Care Provider + [phone] Kobi Watkins MD Primary Care Provider +- [phone] Kobi Watkins MD Primary Care Provider +1- [phone] Molly Fagan MD Primary Care Provider Jaye Smiley MD Unavailable [phone] Iliana Evans Primary Care Provide r Encounter Details Date Type Department Care Team (Late st Contact Info) Description 08/15/2014 Orders Only [facility] [place] Health Information Management [address] [place] [address] Scanning, Provider Social History Tobacco Use Types Packs/Day Years Used Date Smoking Tobacco: Never Assessed Comments Unknown Sex and Gender Information Value Date Recorded Sex Assigned at Not on file Legal Sex Female 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 LIAISON Gender Identity Not on file Sexual Orientation [...] on filedocumented in this encounter Care Teams Rock Picker Relationship Specialty Start Date End Date Kobi Watkins MD PCP - General 10/29/16 05/05/22 Kobi Watkins MD PCP - General 10/12/16 10/28/16 Kobi Watkins MD PCP - General 04/21/15 10/11/16 Kobi Watkins MD PCP - General 12/03/14 04/20/15 Kobi Watkins MD PCP - General 10/01/14 12/02/14 Kobi Watkins MD PCP - General 01/30/14 09/30/14 Molly Fagan MD [address] [place] [address] PCP - General Family Medicine 05/06/22 12/16/24 Iliana Evans PA [address] [place] [address] PCP - General Physician Bi Technical Lead 12/17/24 Jaye Smiley MD [address] [address] Referring Physician Nephrology 04/07/23 documented as of this encounter
--- OUTSIDE RECORDS SUMMARY | 2025-02-07 22:17 | XMS_ITS | Encounter Summary ---
Author Organization [facility] Medical Group Address [address] [place] [address] Care Team Providers Care Cage Supervisor Name Role Phone Kobi Watkins MD Primary Care Provider +1- [phone] Kobi Watkins MD Primary Care Provider +- [phone] Kobi Watkins MD Primary Care Provider +- [phone] oKbi Watkins MD Primary Care Provider + [phone] Kobi Watkins MD Primary Care Provider +- [phone] Kobi Watkins MD Primary Care Provider +1- [phone] Molly Fagan MD Primary Care Provider Jaye Smiley MD Unavailable [phone] Iliana Evans Primary Care Provide r Encounter Details Date Type Department Care Team (Late st Contact Info) Description 03/12/2014 Orders Only [facility] [place] Health Information Management [address] [place] [address] Scanning, Provider Social History Tobacco Use Types Packs/Day Years Used Date Smoking Tobacco: Never Assessed Comments Unknown Sex and Gender Information Value Date Recorded Sex Assigned at Not on file 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 Gender Identity Not on file Sexual Orientation [...] on filedocumented in this encounter Care Teams Cage Supervisor Relationship Specialty Start Date End Date Kobi Watkins MD PCP - General 10/29/16 05/05/22 Kobi Wtakins MD PCP - General 10/12/16 10/28/16 Kobi Watkins MD PCP - General 04/21/15 10/11/16 Kobi Watkins MD PCP - General 12/03/14 04/20/15 Kobi Watkins MD PCP - General 10/01/14 12/02/14 Kobi Watkins MD PCP - General 01/30/14 09/30/14 Molly Fagan MD [address] [place] [address] PCP - General Family Medicine 05/06/22 12/16/24 Iliana Evans PA [address] [facility] [address] [place] [address] PCP - General Physician Review Assistant 12/17/24 Jaye Smiley MD [address] [facility] [address] [place] [address] Referring Physician Nephrology 04/07/23 documented as of this encounter
--- OUTSIDE RECORDS SUMMARY | 2025-02-07 22:17 | XMS_ITS | Clinical Summary ---
Author Organization [facility] Address [address], [place] [address] Phone Care Team Providers Care A&P Mechanic Name Role Phone Molly Fagan MD Primary Care Provider +1- [phone] Allergies Active Allergy Reactions Criticality Noted Date [...] 01/19/2022,11/10/2021 Family History Medical History Relation Comments [place] workers' pneumoconiosis Father Heart disease Father Hypertension [...] Comments Blood Pressure 134/76 06/07/2022 10:48 AM FLEET MAINTENANCE MANAGER Pulse - - Temperature - - Respiratory Rate 18 06/07/2022 10:48 AM FLEET MAINTENANCE MANAGER Oxygen Saturation - - Inhaled Oxygen Concentration - - Weight 68 kg (150 lb) 06/07/2022 10:48 AM FLEET MAINTENANCE MANAGER Height 170.2 cm (5' 7) 06/07/2022 10:48 AM FLEET MAINTENANCE MANAGER Body Mass Index 23.49 06/07/2022 10:48 AM FLEET MAINTENANCE MANAGER Plan of Treatment Health Maintenance Due Date Last Done Comments Influenza Vaccine (#1) 2025 Pneumococcal PPSV23/PCV13 65 + Years / Low and Medium Risk Completed 04/18/2018, 01/25/2011, 05/01/2009 Insurance [employer] MEDICARE Care Teams A&P Mechanic Relationship Specialty Start Date End Date Molly Fagan MD [address] [place] [address] PCP - General Internal Medicine 05/03/22
--- OUTSIDE RECORDS SUMMARY | 2025-02-07 22:17 | XMS_ITS | Encounter Summary ---
Author Organization [facility] Medical [facility] Address [address] [facility] [address] [place] [address] Care Team Providers Care Clinical Manager Home Care Name Role Phone Kobi Watkins MD Primary Care Provider +1- [phone] Kobi Watkins MD Primary Care Provider +- [phone] Kobi Watkins MD Primary Care Provider +- [phone] Kobi Watkins MD Primary Care Provider + [phone] Kobi Watkins MD Primary Care Provider +- [phone] Kobi Watkins MD Primary Care Provider +1- [phone] Molly Fagan MD Primary Care Provider Jaye Smiley MD Unavailable [phone] Iliana Evans Primary Care Provide r Encounter Details Date Type Department Care Team (Late st Contact Info) Description 05/21/2014 Orders Only [facility] [place] Health Information Management [address] [place] [address] Scanning, Provider Social History Tobacco Use Types Packs/Day Years Used Date Smoking Tobacco: Never Assessed Comments Unknown Sex and Gender Information Value Date Recorded Sex Assigned at Not on file 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 Gender Identity Not on file Sexual Orientation [...] on filedocumented in this encounter Care Teams Clinical Manager Home Care Relationship Specialty Start Date End Date Kobi Watkins MD PCP - General 10/29/16 05/05/22 Kobi Watkins MD PCP - General 10/12/16 10/28/16 Kobi Watkins MD PCP - General 04/21/15 10/11/16 Kobi Watkins MD PCP - General 12/03/14 04/20/15 Kobi Watkins MD PCP - General 10/01/14 12/02/14 Kobi Watkins MD PCP - General 01/30/14 09/30/14 Molly Fagan MD [address] [place] [address] PCP - General Family Medicine 05/06/22 12/16/24 Iliana Evans PA [address] [place] [address] PCP - General Physician Metal Coater 12/17/24 Jaye Smiley MD [address] [address] Referring Physician Nephrology 04/07/23 documented as of this encounter
--- OUTSIDE RECORDS SUMMARY | 2025-02-07 22:17 | XMS_ITS | Encounter Summary ---
Author Organization [facility] Medical Group Address [address] [facility] [address] [place] [address] Care Team Providers Care Senior Technical Program Manager Name Role Phone Kobi Watkins MD Primary Care Provider +1- [phone] Kobi Watkins MD Primary Care Provider +- [phone] Kobi Watkins MD Primary Care Provider +1- [phone] Molly Fagan MD Primary Care Provider Jaye Smiley MD Unavailable [phone] Iliana Evans Primary Care Provide r Encounter Details Date Type Department Care Team (Late st Contact Info) Description 10/05/2016 Orders Only [facility] ProviderGregory MD [address] [place] [address] Social History Tobacco Use Types Packs/Day Years Used Date Smoking Tobacco: Never Alcohol Use Standard Drinks/Week Comments No 0 (1 standard drink = 0.6 oz pur e alcohol) Comments Unknown Sex and Gender Information Value Date Recorded Sex Assigned at Not on file 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 Gender Identity Not on file Sexual Orientation [...] filedocumented in this encounter Care Teams Senior Technical Program Manager Relationship Specialty Start Date End Date Kobi Watkins MD PCP - General 10/29/16 05/05/22 Kobi Watkins MD PCP - General 10/12/16 10/28/16 Kobi Watkins MD PCP - General 04/21/15 10/11/16 Molly Fagan MD [address] [facility] [address] [place] [address] PCP - General Family Medicine 05/06/22 12/16/24 Iliana Evans PA [address] [facility] [address] [place] [address] PCP - General Physician Wafer Batter Mixer 12/17/24 Jaye Smiley MD [facility] [facility] [address] [place] [address] Referring Physician Nephrology 04/07/23 documented as of this encounter
--- OUTSIDE RECORDS SUMMARY | 2025-02-07 22:17 | XMS_ITS | Encounter Summary ---
Author Organization [facility] Health Address [address] [place] [address] Care Team Providers Care Endodontist Name Role Phone Kobi Watkins MD Primary Care Provider Unav ailable Jhon Riley MD Unavailable [phone] Crarol Chun RN Unavailable Unavailab Molly Fagan MD Primary Care Provider + Encounter Details Date Type Department Care Team (Late st Contact Info) Description 06/16/2016 [facility] Outpatient Visit [facility] [address] [place] [address] Jhon Riley MD [address] [address] Social History Tobacco Use Types Packs/Day Years Used Date Smoking Tobacco: Former Cigarettes Q uit: 06/1984 Smokeless Tobacco: Never Alcohol Use Standard Drinks/Week Comments No 0 (1 standard drink = 0.6 oz pur e alcohol) Comments No Sex and Gender Information Value Date Recorded Sex Assigned at Not on file Legal Sex Female 6:15 AM SOCK AND STOCKING IRONER Gender Identity Not on file Sexual Orientation Not on file documented as of this encounter Plan of Treatment Not on file documented as of this encounter Visit Diagnoses Not on filedocumented in this encounter Care Teams Endodontist Relationship Specialty Start Date End Date Kobi Watkins MD PCP - General Family Medicine 06/16/16 09/09/22 Molly Fagan MD [address] [place] [address] PCP - General 09/10/22 Jhon Riley MD [address] [address] General Surgery 06/16/16 Carrol Chun, RICHARD Registered Nurse - Cardiopulmonary Rehab 08/16/16 documented as of this encounter
[2025-02-07] MEDS: FAMOTIDINE 20 MG TABLET PO (22:51)
[2025-02-07 23:04] LABS: Add Urine Microscopic? YES; Appearance Urine Cloudy (Clear); Budding Yeast Urine Present /hpf; Glucose Urine UA 3+ mg/dL (Negative); Leukocyte Esterase Ur 3+ LEU/UL (Negative); Need Manual Microscopic Reviewed; Nitrate Urine Positive (Negative); Non Pathogenic Casts 0-2; Specific Grav Ur 1.018 (1.001-1.035)
[2025-02-07 23:06] VITALS: BP 147/73; PULSE 88; RESP 17; TEMP 36.6; O2SAT 98
== END 2025-02-07 23:42 | disposition home or self-care (01) ==
PROVIDERS: Physician Assistant; Emergency Provider Physician Assistant; PCP Family Medicine
DX: N39.0 Urinary tract infection, site not specified (principal); L21.9 Seborrheic dermatitis, unspecified; Z20.822 Contact with and (suspected) exposure to COVID-19
CPT/HCPCS: 36415; 71045; 80053; 81001; 85025; 87637; 99283; A9270

== ENCOUNTER 2025-02-15 11:28 | Emergency (ER) | payer OTHER, MEDICARE, SELFPAY ==
--- NOTE | ~2025-02-15 | XR_ITS ---
Left Shoulder Technique: AP and scapular Y views were obtained. Clinical History: Status post fall Findings: No fracture or dislocation is seen. Osseous alignment is anatomic. The glenohumeral and acr omioclavicular joint spaces are preserved. Soft tissues are unremarkable. Impression: Unremarkable left shoulder radiographs. Reviewed, dictated and finalized at [facility]. Impression: Unremarkable left shoulder radiographs.
[2025-02-15 11:27] VITALS: BP 132/54; PULSE 70; RESP 17; TEMP 36.6; O2SAT 97
--- OUTSIDE RECORDS SUMMARY | 2025-02-15 12:01 | XMS_ITS | Referral Summary ---
Author Organization [facility] Address [address] [place] [address] Care Team Providers Care Baler Name Role Phone Jaye Smiley MD Unavailable [phone] Iliana Evans Primary Care Provide r Encounters Date Type Department Care Team Description 12/17/2024 1:00 PM CDT Office Visit [facility] Cardiology [address] [place] [address] Chandrika Miller NP Chronic diastolic [...] problem. Managed by renal Dr Smiley at [place]. 08/25/21 GFR=35, CR=1.37. Assessment & Plan (04/07/2023 1:48 PM CDT): Chronic problem. Managed by renal Dr Smiley at [place]. ALEXANDER 02/07/23; NOV 06/13/23. 08/25/21 GFR=35, CR=1.37. Had labs completed 01/[address] Smiley. Will have her sign release to get copy of labs from his office and/or [facility]. Chronic kidney disease 12/02/2022 Assessment & Plan (12/02/2022 1:58 PM CDT): Chronic problem. Managed by Dr Jordi Smiley at [facility]. Next OV 02/07/23. 03/11/22 GFR=37, CR=1.40. 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 Last lipid panel: 03/11/22 LDL=72, PY=048. Will update labs today. Does not mychart. Verified phone #/address to contact re: results. Assessment & Plan (04/07/2023 1:16 PM CDT): Chronic problem, currently taking Simvastatin 40mg, zetia 10mg. Last lipid panel: 03/11/22 LDL=72, YE=172. No changes at this time. Assessment & Plan (01/25/2023 2:30 PM CDT): Chronic problem, currently taking Simvastatin 40mg, zetia 10mg. Last lipid panel: 03/11/22 LDL=72, BS=496. No changes at this time. Assessment & Plan (12/02/2022 1:01 PM CDT): Chronic problem, currently taking Simvastatin 40mg, zetia 10mg. Last lipid panel: 03/11/22 LDL=72, YK=427. No changes at this time. Assessment & [...] infection. Assessment & Plan (08/11/2023 2:02 PM VP TREASURER): Hba1c was Lab Results Component Value Date [...] today. Reports DM eye exam 2021 at [facility] in [place], [place]. Letter sent to get copy of [...] Januvia Assessment & Plan (08/14/2020 2:20 PM VP TREASURER): Hba1c was Lab Results Component Value Date [...] reviewed. Assessment & Plan (07/05/2019 2:12 PM VP TREASURER): A1c 6.3 without reported hypoglycemia. Continue metformin and Januvia. Will check labs. Continue follow up with podiatry. BG and A1c goals reviewed. Assessment & Plan (06/20/2018 1:45 PM VP TREASURER): Hba1c was Lab Results Component Value Date [...] metformin Assessment & Plan (09/08/2017 10:58 AM VP TREASURER): Hba1c was 5.8 today, indicating proper DM [...] meds Assessment & Plan (07/05/2019 2:12 PM VP TREASURER): Controlled on current medications. Continue plan. Assessment & Plan (09/08/2017 10:55 AM VP TREASURER): Goal blood pressure is less than 140/85 Low salt diet recommended Daily aerobic exercise Continue current meds, including BELIA-I or ARB Mixed hyperlipidemia 09/08/2017 023 Assessment & Plan (02/07/2020 2:52 PM CDT): Continue statin therapy Assessment & Plan (11/08/2019 1:40 PM CDT): Continue statin therapy Assessment & Plan (07/05/2019 2:13 PM VP TREASURER): Check lipid panel Assessment & Plan (09/08/2017 11:00 AM VP TREASURER): Goal of treatment , LDL cholesterol less [...] file Legal Sex Female 9:25 AM VP TREASURER Gender Identity Not on file Sexual Orientation Not on file Last Filed Vital Signs Vital Sign Reading Time Taken Comments Blood Pressure 142/64 12/17/2024 1:03 PM CDT Pulse 66 12/17/2024 1:03 PM CDT Temperature 35.9 C (96.7 F) 08/08/2019 1:23 PM VP TREASURER Respiratory Rate 18 12/15/2023 1:28 PM CDT [...] BASIC METABOLIC PANEL Routine 08/25/2021 1:21 PM VP TREASURER Chronic diastolic heart failure (HCC) POCT LIPID [...] - 12/08/2022 12:11 PM CDT Performed at: [address] [place] [address] [id number] Cell Repairer: Rob Sierra PhD, Phone: [phone] us Linette Allen PORTABLE POWER TOOL REPAIRER LAB URINE ORDERABLES Tiffanie l Result [facility] - * (ABNORMAL) Basic metabolic panel (08/25/2021 1:21 PM VP TREASURER) [facility] Glucose 146(H) 65 - 99 mg/dL [facility] - 01 BUN 56(H) 8 - 27 mg/dL [facility] - 01 Creatinine, Serum 1.37(H) 0.57 - 1.00 mg/dL [facility] - 01 eGFR If NonAfricn Am 35(L) >59 mL/min/1. 73 [facility] - 01 eGFR If Africn Am 41(L) >59 mL/min/1. 73 [facility] - 01 Comment: In accordance with recommendations from the NKF-ASN Task force, [facility] is in the process of updating [...] 01 Blood specimen (specimen) 08/25/2021 1:21 PM VP TREASURER 08/25/2021 Narrative [facility] - 08/26/2021 6:09 AM VP TREASURER Performed at: [address] [place] [address] [id number] Cell Repairer: Rob Sierra PhD, Phone: [phone] us Xiomara Reynolds PORTABLE POWER TOOL REPAIRER LAB BLOOD ORDERABLES Final R esult [facility] [...] Most Recently Relevant to Health Maintenance Insurance [facility] MEDICARE AD[facility]ANTAGE [facility] MEDICARE Address: [place] [id number] [address] MDCR HMO REF [facility] MEDICARE Address: [address] [address] [place] [address] [facility] MEDICARE ADVANTAGE [facility] MEDICARE Address: [address] [address] [place] [address] [facility] MEDICARE ADVANTAGE [facility] MEDICARE Address: [address] [address] [place] [address] Advance Directives For more information, please contact: [phone] Documents on File Type Date Recorded Patient Radio Installer Automobile Expl anation Power of Moveman 05/24/2024 1:13 PM Care Teams Baler Relationship Specialty Start Date End Date Iliana Evans PA [address] [place] [id number] PCP - General Physician Bookkeeper Receptionist 12/17/24 Jaye Smiley MD [address] [facility] [address] [place] [address] Referring Physician Nephrology 04/07/23
--- OUTSIDE RECORDS SUMMARY | 2025-02-15 12:02 | XMS_ITS | Clinical Summary ---
Author Organization [facility] Address [address] [place] [address] Care Team Providers Care Experimental Outboard Motors Mechanic Name Role Phone Jaye Smiley MD Unavailable Iliana Evans Primary Care Provide r Allergies [...] problem. Managed by renal Dr Smiley at [place]. 08/25/21 GFR=35, CR=1.37. Assessment & Plan (04/07/2023 1:48 PM CDT): Chronic problem. Managed by renal Dr Smiley at [place]. ALEXANDER 02/07/23; NOV 06/13/23. 08/25/21 GFR=35, CR=1.37. Had labs completed 01/[address] Smiley. Will have her sign release to get copy of labs from his office and/or [facility]. Chronic kidney disease 12/02/2022 Assessment & Plan (12/02/2022 1:58 PM CDT): Chronic problem. Managed by Dr Jordi Smiley at [facility]. Next OV 02/07/23. 03/11/22 GFR=37, CR=1.40. 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 Last lipid panel: 03/11/22 LDL=72, PE=006. Will update labs today. Does not mychart. Verified phone #/address to contact re: results. Assessment & Plan (04/07/2023 1:16 PM CDT): Chronic problem, currently taking Simvastatin 40mg, zetia 10mg. Last lipid panel: 03/11/22 LDL=72, LK=081. No changes at this time. Assessment & Plan (01/25/2023 2:30 PM CDT): Chronic problem, currently taking Simvastatin 40mg, zetia 10mg. Last lipid panel: 03/11/22 LDL=72, YI=707. No changes at this time. Assessment & Plan (12/02/2022 1:01 PM CDT): Chronic problem, currently taking Simvastatin 40mg, zetia 10mg. Last lipid panel: 03/11/22 LDL=72, CR=653. No changes at this time. Assessment & [...] infection. Assessment & Plan (08/11/2023 2:02 PM DATA SYSTEMS MANAGER): Hba1c was Lab Results Component Value Date [...] today. Reports DM eye exam 2021 at [facility] in [place], [place]. Letter sent to get copy of [...] Januvia Assessment & Plan (08/14/2020 2:20 PM DATA SYSTEMS MANAGER): Hba1c was Lab Results Component Value Date [...] reviewed. Assessment & Plan (07/05/2019 2:12 PM DATA SYSTEMS MANAGER): A1c 6.3 without reported hypoglycemia. Continue metformin and Januvia. Will check labs. Continue follow up with podiatry. BG and A1c goals reviewed. Assessment & Plan (06/20/2018 1:45 PM DATA SYSTEMS MANAGER): Hba1c was Lab Results Component Value Date [...] metformin Assessment & Plan (09/08/2017 10:58 AM DATA SYSTEMS MANAGER): Hba1c was 5.8 today, indicating proper DM [...] meds Assessment & Plan (07/05/2019 2:12 PM DATA SYSTEMS MANAGER): Controlled on current medications. Continue plan. Assessment & Plan (09/08/2017 10:55 AM DATA SYSTEMS MANAGER): Goal blood pressure is less than 140/85 Low salt diet recommended Daily aerobic exercise Continue current meds, including BELIA-I or ARB Mixed hyperlipidemia 09/08/2017 023 Assessment & Plan (02/07/2020 2:52 PM CDT): Continue statin therapy Assessment & Plan (11/08/2019 1:40 PM CDT): Continue statin therapy Assessment & Plan (07/05/2019 2:13 PM DATA SYSTEMS MANAGER): Check lipid panel Assessment & Plan (09/08/2017 11:00 AM DATA SYSTEMS MANAGER): Goal of treatment , LDL cholesterol less than 100 ( less than 70 in patients with history of heart attacks and / or strokes ) NonHDL cholesterol goal less than 130 ( less than 100 in patients with history of heart attacks and / or strokes ) Continue statin therapy Encounters Date Type Department Care Team Description 12/17/2024 1:00 PM CDT Office Visit [facility] Cardiology [address] [place] [address] Chandrika Miller NP Chronic diastolic heart failure (HCC) (Primary Dx); Mild aortic stenosis from Last 3 Months Surgical History Surgery Date Site/Laterality Comments OTHER SURGICAL HISTORY colon perforation: Hand Assist Laparoscopic Right Colectomy HYSTERECTOMY hysterectomy Medical History Medical History Date Comments Diabetes mellitus (HCC) Diabetes mellitus; Comments: [facility] 12/27/2013 - Hx Other Medical neuropathy; Com ments: [facility] 12/27/2013 - Hx Other Medical hyperlipidemia; Comments: [facility] 12/27/2013 - Hx Other Medical kidney problems ; Comments: [facility] 12/27/2013 - Hx Other Medical L foot ulcers; Comments: [facility] 12/27/2013 - Hx Other Medical not claustropho bic; Comments: [facility] 01/30/2014 - Hx Other Medical colon perforati on; Comments: [facility] 05/14/2015 - Diabetes mellitus (HCC) Diabetes mellitus; Comments: [facility] 05/14/2015 - Hypertension Hypertension Hyperlipidemia Hyperlipidemia; Comments: [facility] 05/14/2015 - Fracture closed, humerus Gout Family [...] on file Legal Sex Female 9:25 AM DATA SYSTEMS MANAGER Gender Identity Not on file Sexual Orientation Not on file Obstetrics History Last Filed Vital Signs Vital Sign Reading Time Taken Comments Blood Pressure 142/64 12/17/2024 1:03 PM CDT Pulse 66 12/17/2024 1:03 PM CDT Temperature 35.9 C (96.7 F) 08/08/2019 1:23 PM DATA SYSTEMS MANAGER Respiratory Rate 18 12/15/2023 1:28 PM CDT [...] BASIC METABOLIC PANEL Routine 08/25/2021 1:21 PM DATA SYSTEMS MANAGER Chronic diastolic heart failure (HCC) POCT LIPID PANEL Routine 03/19/2021 11:2 8 AM CDT Type 2 diabetes mellitus with hyperglycemia, unspecified whether spray dry operator insulin use (HCC) from Last 3 Months [...] 12/08/2022 12:11 PM CDT Performed at: - [address] [id number] Tape Folding Machine Operator: Rob Sierra PhD, Phone: [phone] us Linette Allen NP LAB URINE ORDERABLES Tiffanie l Result [facility] * (ABNORMAL) Basic metabolic panel (08/25/2021 1:21 PM DATA SYSTEMS MANAGER) Glucose 146(H) 65 - 99 mg/dL [facility] - 01 BUN 56(H) 8 - 27 mg/dL [facility] - 01 Creatinine, Serum 1.37(H) 0.57 - 1.00 mg/dL [facility] - 01 eGFR If NonAfricn Am 35(L) >59 mL/min/1. 73 [facility] - 01 eGFR If Africn Am 41(L) >59 mL/min/1. 73 [facility] - 01 Comment: In accordance with recommendations from the NKF-ASN Task force, [facility] is in the process of [...] 01 Blood specimen (specimen) 08/25/2021 1:21 PM DATA SYSTEMS MANAGER 08/25/2021 Narrative [facility] - 08/26/2021 6:09 AM DATA SYSTEMS MANAGER Performed at: [facility] [address] [id number] Tape Folding Machine Operator: Rob Sierra PhD, Phone: [phone] us Xiomara Reynolds NP LAB BLOOD ORDERABLES Final R esult [facility] - 01 * POCT lipid panel (03/19/2021 11:28 AM CDT) [facility] Signature Cholesterol, POC 152 mg/dL HDL, POC 47 mg/dL Triglycerides, POC 111 mg/dL LDL Cholesterol POC 83 mg/dL Chol/HDL Ratio, POC 3.3 Non-HDL Cholesterol, POC 106 mg/dL Capillary blood 03/19/2021 1 1:28 AM CDT us Shashank Li MD POINT OF CARE TEST ORDERABLES Fi nal Result from Last 3 Months or Most Recently Relevant to Health Maintenance Insurance [facility] MEDICARE ADVANT[facility] Address: [facility] [address] [place] [address] [facility] MDCR HMO REF [facility] MEDIC[facility] Address: [address] [address] [place] [address] [facility] MEDICARE ADVANTAGE [facility] MEDIC[facility] Address: [address] [address] [place] [address] [facility] MEDICARE ADVANTAGE [facility] MEDIC[facility] Address: [address] [address] [place] [address] Advance Directives For more information, please contact: [phone] Documents on File Type Date Recorded Patient Client Services Representative Expl anation Power of Roving Hand 05/24/2024 1:13 PM Care Teams Experimental Outboard Motors Mechanic Relationship Specialty Start Date End Date Iliana Evans PA [address] [place] [address] PCP - General Physician Ticketer 12/17/24 Jaye Smiley MD [address] [facility] [address] [place] [address] Referring Physician Nephrology 04/07/23
--- OUTSIDE RECORDS SUMMARY | 2025-02-15 12:02 | XMS_ITS | Clinical Summary ---
Author Organization [facility] Address [address] [facility] [address] Care Team Providers Care Recreation Worker Name Role Phone Jhon Riley MD Unavailable [phone] Carrol Chun RN Unavailable Unavailab Molly Gill MD Primary Care Provider + Source Comments [facility],non-owned Affiliates and Associated Physician Practices is amultiple site organization consisting of ambulatory clinics and hospital sitesin [place], [place], [place] and [place]. This disclosure is being madepursuant to the Care Everywhere program and may not contain all information available regarding this patient. Last updated 18.[facility] Allergies Active Allergy Reactions Criticality Noted Date [...] fluticasone propionate (FLONASE) 50 MCG/ACT nasal spray Newcastle 1 [place] into each nostril once daily 04/28/20 16 [...] on file Legal Sex Female 6:15 AM STORE STOCK HELP Gender Identity Not on file Sexual Orientation Not on file Last Filed Vital Signs Vital Sign Reading Time Taken Comments Blood Pressure 171/76 08/19/2016 12:08 PM STORE STOCK HELP Pulse 78 08/19/2016 8:20 AM STORE STOCK HELP Temperature 36.9 C (98.4 F) 08/19/2016 12:08 PM STORE STOCK HELP Respiratory Rate 18 08/19/2016 12:08 PM STORE STOCK HELP Oxygen Saturation 98% 08/19/2016 12:08 PM STORE STOCK HELP Inhaled Oxygen Concentration - - Weight 73.2 [...] ADV [address] [place] [id number] [facility] MANAGED MEDICARE ADV [facility] MANAGED MEDICARE ADV Advance Directives * Full Code (Latest Code Status on File) Date Activated Date Inactivated Comments 08/10/2016 9:42 PM 08/19/2016 5:12 PM * Full Code Date Activated Date Inactivated Comments 08/10/2016 11:31 AM 08/10/2016 9:42 PM Care Teams Recreation Worker Relationship Specialty Start Date End Date Molly Fagan MD [address] [place] [id number] PCP - General 09/10/22 Jhon Riley MD [address] [address] General Surgery 06/16/16 Carrol Chun, RN Registered Nurse - Cardiopulmonary Rehab 08/16/16
--- OUTSIDE RECORDS SUMMARY | 2025-02-15 12:02 | XMS_ITS | Encounter Summary ---
Author Organization [facility] Address [address] [place] [address] Care Team Providers Care Office Clerk Name Role Phone Kobi Watkins MD Primary Care Provider Unav ailable Jhon Riley MD Unavailable [phone] Carrol Chun RN Unavailable Unavailab Molly Fagan MD Primary Care Provider + Encounter Details Date Type Department Care Team (Late st Contact Info) Description 06/16/2016 [facility] Outpatient Visit [facility] [address] [place] [address] Jhon Riley MD [address] [address] Social History Tobacco Use Types Packs/Day Years Used Date Smoking Tobacco: Former Cigarettes Q uit: 06/1984 Smokeless Tobacco: Never Alcohol Use Standard Drinks/Week Comments No 0 (1 standard drink = 0.6 oz pur e alcohol) Comments No Sex and Gender Information Value Date Recorded Sex Assigned at Not on file Legal Sex Female 6:15 AM EDUCATION PROFESSIONAL Gender Identity Not on file Sexual Orientation Not on file documented as of this encounter Plan of Treatment Not on file documented as of this encounter Visit Diagnoses Not on filedocumented in this encounter Care Teams Office Clerk Relationship Specialty Start Date End Date Kobi Watkins MD PCP - General Family Medicine 06/16/16 09/09/22 Molly Fagan MD [address] [place] [address] PCP - General 09/10/22 Jhon Riley MD [address] [address] General Surgery 06/16/16 Carrol Chun, RICHARD Registered Nurse - Cardiopulmonary Rehab 08/16/16 documented as of this encounter
--- OUTSIDE RECORDS SUMMARY | 2025-02-15 12:02 | XMS_ITS | Clinical Summary ---
Author Organization [facility] Address [address], [place] [address] Phone Care Team Providers Care Etcher Electrolytic Name Role Phone Molly Fagan MD Primary Care Provider [phone] Allergies Active Allergy Reactions Criticality Noted Date [...] 01/19/2022,11/10/2021 Family History Medical History Relation Comments Bond workers' pneumoconiosis Father Heart disease Father Hypertension [...] Comments Blood Pressure 134/76 06/07/2022 10:48 AM PROCESSING TALC AND BORATE SUPERVISOR Pulse - - Temperature - - Respiratory Rate 18 06/07/2022 10:48 AM PROCESSING TALC AND BORATE SUPERVISOR Oxygen Saturation - - Inhaled Oxygen Concentration - - Weight 68 kg (150 lb) 06/07/2022 10:48 AM PROCESSING TALC AND BORATE SUPERVISOR Height 170.2 cm (5' 7) 06/07/2022 10:48 AM PROCESSING TALC AND BORATE SUPERVISOR Body Mass Index 23.49 06/07/2022 10:48 AM PROCESSING TALC AND BORATE SUPERVISOR Plan of Treatment Health Maintenance Due Date Last Done Comments Influenza Vaccine (#1) 2025 Pneumococcal PPSV23/PCV13 65 + Years / Low and Medium Risk Completed 04/18/2018, 01/25/2011, 05/01/2009 Insurance [employer] MEDICARE Care Teams Etcher Electrolytic Relationship Specialty Start Date End Date Molly Fagan MD [address] [facility] [place] [address] PCP - General Internal Medicine 05/03/22
--- OUTSIDE RECORDS SUMMARY | 2025-02-15 12:02 | XMS_ITS | Encounter Summary ---
Author Organization [facility] Address [address] [facility] [address] [place] [address] Care Team Providers Care Sea Air Land Officer Name Role Phone Kobi Watkins MD Primary Care Provider [phone] Kobi Watkins MD Primary Care Provider +- [phone] Kobi Watkins MD Primary Care Provider +- [phone] Kobi Watkins MD Primary Care Provider + [phone] Kobi Watkins MD Primary Care Provider +- [phone] Kobi Watkins MD Primary Care Provider [phone] Molly Fagan MD Primary Care Provider Jaye Smiley MD Unavailable [phone] Iliana Evans Primary Care Provide r Encounter Details Date Type Department Care Team (Late st Contact Info) Description 06/11/2014 Orders Only [facility] Information Management [address] [place] [address] Scanning, Provider Social History Tobacco Use Types Packs/Day Years Used Date Smoking Tobacco: Never Assessed Comments Unknown Sex and Gender Information Value Date Recorded Sex Assigned at Not on file Legal Sex Female 9:25 AM WARP TENSION TESTER Gender Identity Not on file Sexual Orientation [...] on filedocumented in this encounter Care Teams Sea Air Land Officer Relationship Specialty Start Date End Date Kobi Watkins MD PCP - General 10/29/16 05/05/22 Kobi Watkins MD PCP - General 10/12/16 10/28/16 Kobi Watkins MD PCP - General 04/21/15 10/11/16 Kobi Watkins MD PCP - General 12/03/14 04/20/15 Kobi Watkins MD PCP - General 10/01/14 12/02/14 Kobi Watkins MD PCP - General 01/30/14 09/30/14 Molly Fagan MD [address] [facility] [address] [place] [address] PCP - General Family Medicine 05/06/22 12/16/24 Iliana Evans PA [address] [place] [address] PCP - General Physician Floor Supervisor 12/17/24 Jaye Smiley MD [address] [facility] [address] [place] [address] Referring Physician Nephrology 04/07/23 documented as of this encounter
--- OUTSIDE RECORDS SUMMARY | 2025-02-15 12:02 | XMS_ITS | Encounter Summary ---
Author Organization [facility] Address [address] [facility] [address] [place] [address] Care Team Providers Care Guest Services Representative Name Role Phone Kobi Watkins MD Primary Care Provider [phone] Kobi Watkins MD Primary Care Provider +- [phone] Kobi Watkins MD Primary Care Provider +- [phone] Kobi Watkins MD Primary Care Provider + [phone] Kboi Watkins MD Primary Care Provider +- [phone] Kobi Watkins MD Primary Care Provider [phone] Molly Fagan MD Primary Care Provider Jaye Smiley MD Unavailable [phone] Iliana Evans Primary Care Provide r Encounter Details Date Type Department Care Team (Late st Contact Info) Description 08/15/2014 Orders Only [facility] Health Information Management [address] [place] [address] Scanning, Provider Social History Tobacco Use Types Packs/Day Years Used Date Smoking Tobacco: Never Assessed Comments Unknown Sex and Gender Information Value Date Recorded Sex Assigned at Not on file Legal Sex Female 9:25 AM ENVIRONMENTAL SPECIALIST Gender Identity Not on file Sexual Orientation [...] on filedocumented in this encounter Care Teams Guest Services Representative Relationship Specialty Start Date End Date Kobi Watkins MD PCP - General 10/29/16 05/05/22 Kobi Watkins MD PCP - General 10/12/16 10/28/16 Kobi Watkins MD PCP - General 04/21/15 10/11/16 Kobi Watkins MD PCP - General 12/03/14 04/20/15 Kobi Watkins MD PCP - General 10/01/14 12/02/14 Kobi Watkins MD PCP - General 01/30/14 09/30/14 Molly Fagan MD [address] [place] [address] PCP - General Family Medicine 05/06/22 12/16/24 Iliana Evans PA [address] [place] [address] PCP - General Physician Mathematician 12/17/24 Jaye Smiley MD [address] [address] Referring Physician Nephrology 04/07/23 documented as of this encounter
--- OUTSIDE RECORDS SUMMARY | 2025-02-15 12:02 | XMS_ITS | Encounter Summary ---
Author Organization [facility] Address [address] [place] [address] Care Team Providers Care Motor Coach Tour Operator Name Role Phone Kobi Watkins MD Primary Care Provider [phone]- [phone] Kobi Watkins MD Primary Care Provider +- [phone] Kobi Watkins MD Primary Care Provider +- [phone] Kobi Watkins MD Primary Care Provider + [phone] Kobi Watkins MD Primary Care Provider +- [phone] Kobi Watkins MD Primary Care Provider [phone]- [phone] Molly Fagan MD Primary Care Provider Jaye Smiley MD Unavailable [phone] Iliana Evans Primary Care Provide r Encounter Details Date Type Department Care Team (Late st Contact Info) Description 05/21/2014 Orders Only [facility] [place] Health Information Management [address] [place] [address] Scanning, Provider Social History Tobacco Use Types Packs/Day Years Used Date Smoking Tobacco: Never Assessed Comments Unknown Sex and Gender Information Value Date Recorded Sex Assigned at Not on file Legal Sex Female 9:25 AM MEAT PROCESSING CENTER MANAGER Gender Identity Not on file Sexual [...] on filedocumented in this encounter Care Teams Motor Coach Tour Operator Relationship Specialty Start Date End Date Kobi Watkins MD PCP - General 10/29/16 05/05/22 Kobi Watkins MD PCP - General 10/12/16 10/28/16 Kobi Watkins MD PCP - General 04/21/15 10/11/16 Kobi Watkins MD PCP - General 12/03/14 04/20/15 Kobi Watkins MD PCP - General 10/01/14 12/02/14 Kobi Watkins MD PCP - General 01/30/14 09/30/14 Molly Fagan MD [address] [place] [address] PCP - General Family Medicine 05/06/22 12/16/24 Iliana Evans PA [address] [place] [address] PCP - General Physician Thermodynamics Professor 12/17/24 Jaye Smiley MD [address] [address] Referring Physician Nephrology 04/07/23 documented as of this encounter
--- OUTSIDE RECORDS SUMMARY | 2025-02-15 12:02 | XMS_ITS | Encounter Summary ---
Author Organization [facility] Address [address] [place] [address] Care Team Providers Care Inlayer Silver Name Role Phone oKbi Watkins MD Primary Care Provider [phone]- [phone] Kobi Watkins MD Primary Care Provider +1- [phone] Molly Fagan MD Primary Care Provider Jaye Smiley MD Unavailable [phone] Iliana Evans Primary Care Provide r Encounter Details Date Type Department Care Team (Late st Contact Info) Description 10/19/2016 Orders Only [facility] ProviderGregory MD [address] [place] [id number] Social History Tobacco Use Types Packs/Day Years Used Date Smoking Tobacco: Never Alcohol Use Standard Drinks/Week Comments No 0 (1 standard drink = 0.6 oz pur e alcohol) Comments Unknown Sex and Gender Information Value Date Recorded Sex Assigned at Not on file Legal Sex Female 9:25 AM CONTROL CLERK HEAD Gender Identity Not on file Sexual Orientation [...] on filedocumented in this encounter Care Teams Inlayer Silver Relationship Specialty Start Date End Date Kobi Watkins MD PCP - General 10/29/16 05/05/22 Kobi Watkins MD PCP - General 10/12/16 10/28/16 Molly Fagan MD [address] [facility] [address] [place] [address] PCP - General Family Medicine 05/06/22 12/16/24 Iliana Evans PA [address] [facility] [address] [place] [address] PCP - General Physician Core Sucker 12/17/24 Jaye Smiley MD [facility] [address] [place] [address] Referring Physician Nephrology 04/07/23 documented as of this encounter
--- OUTSIDE RECORDS SUMMARY | 2025-02-15 12:02 | XMS_ITS | Encounter Summary ---
Author Organization [facility] Address [address] [place] [address] Care Team Providers Care Flipping Machine Operator Name Role Phone Kobi Watkins MD Primary Care Provider [phone]- [phone] Kobi Watkins MD Primary Care Provider +- [phone] Kobi Watkins MD Primary Care Provider + [phone] Kobi Watkins MD Primary Care Provider + [phone] Kobi Watkins MD Primary Care Provider +- [phone] Kobi Watkins MD Primary Care Provider [phone]- [phone] Molly Fagan MD Primary Care Provider Jaye Smiley MD Unavailable [phone] Iliana Evans Primary Care Provide r Encounter Details Date Type Department Care Team (Late st Contact Info) Description 04/19/2014 Orders Only [facility] Health Information Management [address] [place] [address] Scanning, Provider Social History Tobacco Use Types Packs/Day Years Used Date Smoking Tobacco: Never Assessed Comments Unknown Sex and Gender Information Value Date Recorded Sex Assigned at Not on file Legal Sex Female 9:25 AM PADDLE DYEING MACHINE OPERATOR Gender Identity Not on file [...] on filedocumented in this encounter Care Teams Flipping Machine Operator Relationship Specialty Start Date End Date [...] MD [address] [place] [address] PCP - General Family Medicine 05/06/22 12/16/24 Iliana Evans PA [address] [place] [address] PCP - General Physician Fleet Sales Manager 12/17/24 Jaye Smiley MD [address] [facility] [address] [place] [address] Referring Physician Nephrology 04/07/23 documented as of this encounter
--- OUTSIDE RECORDS SUMMARY | 2025-02-15 12:02 | XMS_ITS | Encounter Summary ---
Author Organization [facility] Address [address] [facility] [address] [address] [place] [address] Care Team Providers Care Dowel Pin Worker Name Role Phone Kobi Watkins MD Primary Care Provider +1- [phone] Kobi Watkins MD Primary Care Provider +[phone]- [phone] Kobi Watkins MD Primary Care Provider +[phone]- [phone] Kobi Watkins MD Primary Care Provider +1- [phone] Molly Fagan MD Primary Care Provider Jaye Smiley MD Unavailable [phone] Iliana Evans Primary Care Provide r Encounter Details Date Type Department Care Team (Late st Contact Info) Description 01/21/2015 Orders Only [facility] Health Information Management [address] [place] [address] Scanning, Provider Social History Tobacco Use Types Packs/Day Years Used Date Smoking Tobacco: Never Assessed Comments Unknown Sex and Gender Information Value Date Recorded Sex Assigned at Not on file Legal Sex Female 9:25 AM TRAINING AND QUALITY MANAGER Gender Identity Not on file Sexual [...] on filedocumented in this encounter Care Teams Dowel Pin Worker Relationship Specialty Start Date End Date Kobi Watkins MD PCP - General 10/29/16 05/05/22 Kobi Watkins MD PCP - General 10/12/16 10/28/16 Kobi Watkins MD PCP - General 04/21/15 10/11/16 Kobi Watkins MD PCP - General 12/03/14 04/20/15 Molly Fagan MD [address] [place] [address] PCP - General Family Medicine 05/06/22 12/16/24 Iliana Evans PA [address] [place] [address] PCP - General Physician Operations Management Professionals 12/17/24 Jaye Smiley MD [address] [facility] [address] [place] [address] Referring Physician Nephrology 04/07/23 documented as of this encounter
--- OUTSIDE RECORDS SUMMARY | 2025-02-15 12:02 | XMS_ITS | Encounter Summary ---
Author Organization [facility] Address [address] [place] [address] Care Team Providers Care Per Diem Physical Therapist Assistant Name Role Phone Kobi Watkins MD Primary Care Provider [phone]- [phone] Kobi Watkins MD Primary Care Provider +- [phone] Kobi Watkins MD Primary Care Provider +- [phone] Kobi Watkins MD Primary Care Provider + [phone] Kobi Watkins MD Primary Care Provider [phone]- [phone] Molly Fagan MD Primary Care Provider Jaye Smiley MD Unavailable [phone] Iliana Evans Primary Care Provide r Encounter Details Date Type Department Care Team (Late st Contact Info) Description 10/25/2014 Orders Only [facility] [place] Health Information Management [address] [place] [address] Scanning, Provider Social History Tobacco Use Types Packs/Day Years Used Date Smoking Tobacco: Never Assessed Comments Unknown Sex and Gender Information Value Date Recorded Sex Assigned at Not on file 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 Gender Identity Not on file Sexual Orientation [...] on filedocumented in this encounter Care Teams Per Diem Physical Therapist Assistant Relationship Specialty Start Date End Date Kobi Watkins MD PCP - General 10/29/16 05/05/22 Kobi Watkins MD PCP - General 10/12/16 10/28/16 Kobi Watkins MD PCP - General 04/21/15 10/11/16 Kobi Watkins MD PCP - General 12/03/14 04/20/15 Kobi Watkins MD PCP - General 10/01/14 12/02/14 Molly Fagan MD [address] [place] [address] PCP - General Family Medicine 05/06/22 12/16/24 Iliana Evans PA [address] [place] [address] PCP - General Physician Inspector Of Dredging 12/17/24 Jaye Smiley MD [address] [facility] [address] [place] [address] Referring Physician Nephrology 04/07/23 documented as of this encounter
--- OUTSIDE RECORDS SUMMARY | 2025-02-15 12:02 | XMS_ITS | Clinical Summary ---
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) USE TO CHECK BLOOD SUGAR TWICE DAILY [...] 05/08/2021 Nephropathy due to secondary diabetes mellitus ([facility]) 05/08/2021 Stage 3 chronic kidney disease 05/08/2021 Urinary tract infectious disease 05/08/2021 Cellulitis of lower extremity, unspecified later ality 05/08/2021 Aortic stenosis 04/29/2021 Bradycardia 04/29/2021 Diastolic congestive heart failure ([facility]) 04/29/2021 Chronic diastolic heart failure ([facility] ) 04/29/2021 Hyperlipidemia associated wi th type 2 diabetes mellitus (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) 12/28/2018 Overview (05/08/2021): Last Assessment & Plan: [...] or gangrene 0 08/10/2016 Perforation of colon (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) 05/08/202106/01 Stage 2 chronic kidney disease 05/08/2021 06/19/2021 Type 1 diabetes mellitus wit hout complication ([facility]) 05/08/2021 06/19/2021 Type 2 diabetes mellitus wit hout complication, without long-term current use of insulin ([facility]) 02/11/2021 06/19/2021 Hypertension 09/08/2017 12/31/2021 Overview (05/08/2021): Hypertension Last Assessment & Plan: Advised to follow up with PCP for any further balance issues. They can recheck CBC at follow up to r/o sx d/t ELIECER. Diabetes mellitus ([facility]) 09/08/2017 06/19/2021 Overview (05/08/2021): Last Assessment & Plan: Continue with Januvia Immunizations Immunization Administration Dates Next Due Hepatitis A (Generic) 02/10/2000,07/27/1999 Hepatitis A (Havrix [address]) 02/10/2000,1998 Pneumococcal (Pneumovax 23) 01/25/2011, 9 Pneumococcal (Prevnar 13) 04/18/2018 Shingrix 01/19/2022,11/10/2021 Td 01/20/2017 Zoster (Zostavax) 28624 Unt/0.65Ml 11/12/2011 Family History Medical History Relation [...] Done Comments Diabetes: Retinopathy Eye Exam 1953 Annual Medicare Wellness Visit 2001 RSV Immunization or 60+ Years (1 - 1-dose 75+ series) 11/01/2011 DTaP, Tdap and Td Vaccines (1 - Tdap) 01/21/2017 01/20/2017 Hemoglobin A1C 09/11/2022 03/11/2022, 09/01, 11/17/2020, Additional history exists Lipid Panel 03/11/2023 03/11/2022, 09/01, 03/19/2021 COVID-19 Vaccine ( season) 2024 12/07/2021, 08/03/2021, 02/04/2021, Additional history exists PHQ-2 (Physician [place]) 08/01/2024 Pneumococcal Vaccine: 50+ Years Completed 04/18/2018, 01/25/2011, [...] - 03/12/2022 8:15 AM CDT Performed at: [address] [place] [id number] Cold Rolling Supervisor: Rob Sierra PhD, Phone: [phone] us Kobi Watkins MD LABORATORY Final Resul t [facility] [address] [place] [address] [facility] 1 * (ABNORMAL) LIPID PANEL (03/11/2022 [...] AM CDT Performed at: 01 - [facility] [address] [id number] Cold Rolling Supervisor: Rob Sierra PhD, Phone: [phone] us Kboi Watkins MD LABORATORY Final Resul t [facility] [address] [place] [address] [facility] 1 from Last 3 Months or Most Recently Relevant to Health Maintenance [place] [address] [address]
--- OUTSIDE RECORDS SUMMARY | 2025-02-15 12:02 | XMS_ITS | Data Portability ---
Author Organization [place] - [facility], Main Office Address [address] [place] [address] Care Team Providers Care Senior Consulting Manager Name Role Phone AYE OLIVO Primary Care Provider AYE OLIVO Referring Provider Assessment Encounter Date Assessment Date Assessment LastModified [...] can take I have recommended Tylenol Arthritis zjea-fqu-cylzhve she is going to use this as [...] DO Not Attach Compendium, Do Not Delete/merge, [id number] 01/03/2025 14:18:29 injection /aspirati on joint/bur sa (PROC) 2024 025 In-Office Order, Internal Use Only DO Not Attach Compendium DO Not Attach Compendium, Do Not Delete/merge, [id number] 10/04/2024 14:31:50 injection /aspirati on joint/bur sa (PROC) - in office procedure , administe red by provider 2023 024 In-Office Order, Internal Use Only DO Not Attach Compendium DO Not Attach Compendium, Do Not Delete/merge, [id number] 07/05/2024 15:02:14 injection /aspirati on joint/bur sa (PROC) 2023 024 In-Office Order, Internal Use Only DO Not Attach Compendium DO Not Attach Compendium, Do Not Delete/merge, [id number] 05/17/2024 14:49:34 injection /aspirati on joint/bur sa (PROC) - in office procedure , administe red by provider 2023 024 In-Office Order, Internal Use Only DO Not Attach Compendium DO Not Attach Compendium, Do Not Delete/merge, [id number] 02/17/2024 14:35:14 Surgeries None recorded. Imaging XR, knee, 3 view 2024 025 [facility] [place], [address] [facility] [address], [place], [address], 10/04/2024 15:17:35 Medication Orders bupivacai ne HCl 0.5 % (5 mg/mL) injection solution 2024 025 [facility], [address] [place] [address], [address], 10/04/2024 14:54:16 Kenalog 10 mg/mL suspensio n for injection [address] [facility], [address] [place] [address], [address], 10/04/2024 14:54:16 tramadol 50 mg tablet [address] [facility], [address] [place] [address], [address], 07/05/2024 15:37:21 bupivacai ne HCl 0.5 % (5 mg/mL) injection solution [address] [facility] [address] [facility], [address] [place] [address], [address], 05/17/2024 16:10:17 Kenalog 10 mg/mL suspensio n for injection [address] [facility], [address] [place] [address], [address], 05/17/2024 16:10:17 Marcaine (PF) 0.5 % (5 mg/mL) injection solution [address] [facility], [address] [place] [address], [address], 10/10/2024 14:23:03 Kenalog 10 mg/mL suspensio n for injection [address] [facility], [address] [place] [address], [address], 02/17/2024 16:07:39 Patient TargetsNo targets recorded. Patient Instructions Encounter Date Encounter Id Patient Instructions Last Modified By Organization Details Last Modified Time 10/04/2024 [id number] viscosupplementa tion treatment* Not available 10/22/2024 10:16:08 Reason for Referral None Reported. Results Created Date Observation Date Name Description Value Unit Range Abnormal Flag Note LastModifiedBy Organization Detail LastModifiedTime 10/05/19 25 XR, knee, 3 view No observ ation record ed. [facility] [place] [address], [place], [place], [address], 10/04/2024 15:17:33 Result Notes None recorded. Problems Name Problem SNOMED Code Status Onset Date Resolution Date Notes Provider Name and Address Organization Details Recorded Time Osteoarthr itis 195597695 Active Not Available [facility] 3 00:53:30 Fracture of neck of femur 3128110 Active Not Available [facility] 3 00:53:30 Closed intertroch anteric fracture 95158680 Active Not Available [facility] 3 00:53:30 Osteoarthr itis of left knee joint 4367821689768 09 Active 2021 Not Available [facility] 3 00:53:29 Osteoarthr itis of right knee joint 1297969969953 00 Active 2021 Not Available [facility] 3 00:53:30 Osteoarthr itis of knee 107487336 Active 2021 Not Available [facility] 3 00:53:29 Pain of bilateral knee joints 7262015218990 04 Active 2021 Not Available [facility] 3 00:53:30 Bilateral osteoarthr itis of knees 2027339520249 07 Active 2022 Not Available [facility] 3 00:53:29 Pain in right sacroiliac joint 7159424380255 9107 Active 2022 Not Available [facility] 3 00:53:29 Problem Notes None recorded. Procedures Surgical History Date Name Laterality Status Provider Name and Address Organization Details Recorded Time Hip surgery completed Not Available [facility] 09/29/2022 00:47:35 Appendectomy completed SUSIE [facility] 10/06/2023 14:44:11 Foot Surgery completed SUSIE Love Estrellita Bazinga [facility] 10/06/2023 14:44:32 Imaging Results None recorded. Procedure Notes None recorded. Medical Equipment None Reported. Allergies Allergen ID Allergen Name Allergen Category Reaction Reaction Severity Criticality Documentation Date Start Date Code Code System Note Provider Name and Address Organization Details Recorded Time 1134 phenobarb ital medicatio n other Not available Not available 09/29/2022 8134 RxNorm Blist ers throa t close s Claire Soto, CASE BRIEFERJavi dey, [place] - [facility] [place] [employer] [facility] 14:32:44 Medications Name Sig Start Date Stop [...] completed Not Available Not Available Not Available [employer] Ultra Test strips USE TO CHECK BLOOD SUGAR TWICE DAILY active Not Available Not Available No t Available Kenalog 10 mg/mL suspensio n for injection Take 40 mg by injectio n route. 2024 active [facility]: 0003-049 4-20 Not Available Not Available Not [...] administ ered by the provider 05/15 completed [facility]: 0409-427 01-15 Not Available Not Available Not [...] mg by injectio n route. 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 [employer] [facility] 10/04/2024 14:26:50 Date Recorded Body height Provider Name an d Address Organization Details Last Updated DateTime 01/03/2025 170.18 cm Monet Fraga [facility] 01/03/2025 14:16:19 Date Recorded Body height Body mass index (BMI) Body weight Provider Name and Address Organization Details Last Updated DateTime 02/17/2024 170.18 cm 23.8 kg/m2 86740.04 g Claire Soto CNA [place] [employer] [facility] 02/17/2024 14:32:47 Date Recorded Body height Body mass index (BMI) Body weight Provider Name and Address Organization Details Last Updated DateTime 05/17/2024 170.18 cm 23.6 kg/m2 73223.45 g Claire Soto CASE BRIEFER [employer] [facility] [employer] 05/17/2024 14:48:07 Date Recorded Body height Body mass index (BMI) Body weight Provider Name and Address Organization Details Last Updated DateTime 07/05/2024 170.18 cm 23.5 kg/m2 64151.86 g Claire Soto [facility] [employer] [facility] [employer] 07/05/2024 15:00:41 Social History None recorded. Functional Status Question Answer Note LastModified by Organizat ion Details LastModified Time What is your level of alcohol consumption? None [id number] Information not available 09/29/2022 Mental Status None recorded. Family History Relationship Description Onset Age of this Age Resolved Age Notes LastModified by Organization Details LastModified Time Father Heart disease [id number] Not available 09/29/2022 00:47:38 Mother Heart disease [id number] Not available 09/29/2022 00:47:38 Mother Hypertensive disorder [id number] Not available 09/29/2022 00:47:38 Sister Family history [...] OF BLOOD THINNERS Y ANEMIA/BLOOD DISORDER Y SKIN PROBLEMS Y HEART DISEASE/HEART PROBLEMS Y DIABETES, TYPE Y OSTEOPOROSIS Y URINARY/BLADDER/KIDNEY PROBLEMS Y GOUT Y HEART ARRHYTHMIA Y HYPERTENSION Y Gynecological HistoryNo gynecological history recorded. Obstetrics History GPAL:G 0 P 0 0 0 0 Past Encounters Encounter ID Performer Location Encounter Start Date Encounter Closed Date Diagnosis/Indication Diagnosis SNOMED-CT Code Diagnosis ICD10 Code Diagnosis Note [id number] VINCENZO Negron [facility] [address] [place] [address] 09/30/2020 00:00:00 09/30/2020 15:58:13 [id number] VINCENZO Negron [facility] [place] [address] [place] [address] 10/07/2020 00:00:00 10/07/2020 15:05:24 [id number] VINCENZO Negron [facility] [place] [address] [place] [address] 01/30/2021 00:00:00 01/30/2021 12:35:43 [id number] VINCENZO Negron [facility] [place] [address] [place] [address] 05/15/2021 00:00:00 05/15/2021 15:07:24 [id number] MD ARIANNA [facility] [place] [address] [place] [address] 05/21/2021 00:00:00 05/21/2021 14:53:48 [id number] Jani Larios MD [facility] [place] [address] [place] [address] 05/28/2021 00:00:00 05/28/2021 14:45:14 [id number] Jani Larios MD [facility] [place] [address] [place] [address] 08/27/2021 00:00:00 08/27/2021 13:08:16 [id number] Jani Larios MD [facility] [place] [address] [place] [address] 11/19/2021 00:00:00 11/19/2021 10:40:31 [id number] Jani Larios MD [facility] [place] [address] [place] [address] 01/19/2022 00:00:00 01/19/2022 14:10:45 [id number] Jani Larios MD [facility] [place] [address] [place] [address] 01/26/2022 00:00:00 01/26/2022 14:17:40 [id number] Jani Larios MD [facility] [place] [address] [place] [address] 02/02/2022 00:00:00 02/02/2022 14:51:51 [id number] Jani Larios MD [facility] [place] [address] [place] [address] 04/30/2022 00:00:00 04/30/2022 14:29:33 [id number] Jani Larios MD [facility] [place] [address] [place] [address] 08/03/2022 00:00:00 08/03/2022 16:31:49 [id number] Jani Larios MD [facility] [place] [address] [place] [address] 09/27/2022 00:00:00 09/27/2022 13:03:03 [id number] VINCENZO Negron [facility] [place] [address] [place] [address] 10/04/2022 11:20:27 10/04/2022 15:44:59 Pain of bilateral knee joints 6144105375 75141 M25.562 Bilateral osteoarthritis of knees 9526416487 69602 M17.0 Pain in ri ght sacroiliac joint 8780102238 6532150 M53.3 [id number] Jani Larios MD [facility] [place] [address] [place] [address] 10/14/2022 13:45:36 10/14/2022 15:15:37 Bilateral osteoarthritis of knees 1263943414 30581 M17.0 Pain of bi lateral knee joints 3682084947 17275 M25.562 Pain in ri ght sacroiliac joint 5108340758 9352814 M53.3 [id number] MD ARIANNA [facility] [place] [address] [place] [address] 12/07/2022 14:57:30 12/07/2022 16:39:17 Bilateral osteoarthritis of knees 8467739917 58796 M17.0 Pain in ri ght sacroiliac joint 3752593127 4003482 M53.3 Pain of bi lateral knee joints 1843130773 05755 M25.562 [id number] Jani Larios MD [facility] [place] [address] [place] [address] 03/01/2023 14:13:15 03/01/2023 15:15:14 Bilateral osteoarthritis of knees 3190964248 03751 M17.0 Pain in ri ght sacroiliac joint 0533944844 0415196 M53.3 Pain of bi lateral knee joints 3387879009 55288 M25.129 [id number] Jani Larios MD [facility] [place] [address] [place] [address] 04/19/2023 15:23:26 04/19/2023 17:03:24 Bilateral osteoarthritis of knees 9681289077 40435 M17.0 [id number] Mann Bowling MD [facility] [place] [address] [place] [address] 04/26/2023 14:45:46 04/26/2023 15:14:27 Bilateral osteoarthritis of knees 2863087889 27057 M17.0 [id number] Mann Bowling MD [facility] [place] [address] [place] [address] 05/10/2023 14:34:46 05/10/2023 15:02:04 Bilateral osteoarthritis of knees 8726403904 47712 M17.0 [id number] VINCENZO Negron [facility] [place] [address] [place] [address] 07/18/2023 11:32:26 07/18/2023 12:36:14 Bilateral osteoarthritis of knees 0680639790 53814 M17.0 [id number] Alirio Boyd MD [facility] [place] [address] [place] [address] 10/06/2023 14:03:58 10/06/2023 15:14:56 Bilateral osteoarthritis of knees 5991469970 06197 M17.0 Pain of bi lateral knee joints 8121375798 33722 M25.098 [id number] Alirio Boyd MD [facility] [place] [address] [place] [address] 11/18/2023 11:14:54 11/18/2023 11:50:17 Bilateral osteoarthritis of knees 0760527488 59184 M17.0 Pain of bi lateral knee joints 3715814184 91658 M25.177 [id number] Alirio Boyd MD [facility] [place] [address] [place] [address] 02/17/2024 14:28:10 02/17/2024 14:48:40 Bilateral osteoarthritis of knees 0636043168 10023 M17.0 Pain of bi lateral knee joints 3957579351 19077 M25.489 [id number] Alirio Boyd MD [facility] [place] [address] [place] [address] 05/17/2024 14:41:03 05/17/2024 15:08:47 Bilateral osteoarthritis of knees 7176125322 39091 M17.0 Pain of bi lateral knee joints 6377614665 21527 M25.522 [id number] Alirio Boyd MD [facility] [place] [address] [place] [address] 07/05/2024 14:50:33 07/05/2024 16:13:24 Bilateral osteoarthritis of knees 5230741051 04191 M17.0 Pain of bi lateral knee joints 9524586571 54051 M25.782 [id number] Alirio Boyd MD [facility] [place] [address] [place] [address] 10/04/2024 14:19:17 10/04/2024 15:07:47 Bilateral osteoarthritis of knees 9846398764 81068 M17.0 Pain of bi lateral knee joints 8404813977 66265 M25.350 [id number] Alirio Boyd MD [facility] [place] [address] [place] [address] 01/03/2025 14:12:17 01/03/2025 14:59:03 Bilateral osteoarthritis of knees 8922794005 35706 M17.0 Pain of bi lateral knee joints 4012587571 89023 M25.562 Health Concerns Section Related Observation LastModified by Organization Detai ls LastModified Time None Recorded Concern Status LastModified by Organization Details LastModified Time None Recorded Advance Directives Directive None Recorded Payers Insurance Date Sequence Insurance Name Policy Number Policy Ojeda Covered Member ID Ojeda Member ID Guarantor Name 01/24/2025 1 [facility] (MEDICARE REPLACEMENT/A DVANTAGE - HMO) [id number] Elizabeth Negron [id number] Elizabeth Negron Notes Date Note Type Note [...] VINCENZO Negron [address], [place], [address], [employer] [facility] 02/17/2024 14:47:49 05/17/2024 text/html patient returns with [...] VINCENZO Negron [address], [place], [address], [employer] 05/17/2024 15:05:19 07/05/2024 text/html patient returns for [...] VINCENZO Negron [address], [place], [address], [employer] 07/05/2024 15:36:20 10/04/2024 text/html The patient retu [...] better than others. VINCENZO Negron [address] [employer], [address], [place], [address], [employer] 10/04/2024 15:18:39 01/03/2025 text/html The patient retu [...] and lateral compartments. Both patellofemoral articulations are [id number]. She would like to proceed with Synvisc-One injections today she brings him medication for the specialty pharmacy. VINCENZO Negron [address], [place], [address], [employer] 01/03/2025 15:05:04 OBGyn Episode No OBEpisode recorded.
--- OUTSIDE RECORDS SUMMARY | 2025-02-15 12:02 | XMS_ITS | Encounter Summary ---
Author Organization [facility] Address [address] [facility] [address] [facility] [address] [place] [address] Care Team Providers Care Marketing Agent Name Role Phone Kobi Watkins MD Primary Care Provider [phone]- [phone] Kobi Watkins MD Primary Care Provider +- [phone] Kobi Watkins MD Primary Care Provider [phone]- [phone] Molly Fagan MD Primary Care Provider Jaye Smiley MD Unavailable [phone] Iliana Evans Primary Care Provide r Encounter Details Date Type Department Care Team (Late st Contact Info) Description 10/05/2016 Orders Only [facility] ProviderGregory MD [address] [place] [address] Social History Tobacco Use Types Packs/Day Years Used Date Smoking Tobacco: Never Alcohol Use Standard Drinks/Week Comments No 0 (1 standard drink = 0.6 oz pur e alcohol) Comments Unknown Sex and Gender Information Value Date Recorded Sex Assigned at Not on file 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 Gender Identity Not on file Sexual [...] on filedocumented in this encounter Care Teams Marketing Agent Relationship Specialty Start Date End Date Kobi Watkins MD PCP - General 10/29/16 05/05/22 Kobi Watkins MD PCP - General 10/12/16 10/28/16 Kobi Watkins MD PCP - General 04/21/15 10/11/16 Molly Fagan MD [address] [facility] [address] [place] [address] PCP - General Family Medicine 05/06/22 12/16/24 Iliana Evans PA [address] [facility] [address] [place] [address] PCP - General Physician Delivery Truck Driver 12/17/24 Jaye Smiley MD [facility] [place] [place] [address] Referring Physician Nephrology 04/07/23 documented as of this encounter
--- OUTSIDE RECORDS SUMMARY | 2025-02-15 12:02 | XMS_ITS | Encounter Summary ---
Author Organization [facility] Address [address] [facility] [address] [place] [address] Care Team Providers Care Esl Instructor Name Role Phone Kobi Watkins MD Primary Care Provider [phone]- [phone] Kobi Watkins MD Primary Care Provider +- [phone] Kobi Watkins MD Primary Care Provider +- [phone] Kobi Watkins MD Primary Care Provider + [phone] Kobi Watkins MD Primary Care Provider [phone]- [phone] Kobi Watkins MD Primary Care Provider [phone]- [phone] Molly Fagan MD Primary Care Provider Jaye Smiley MD Unavailable [phone] Iliana Evans Primary Care Provide r Encounter Details Date Type Department Care Team (Late st Contact Info) Description 03/12/2014 Orders Only [facility] Health Information Management [address] [place] [address] Scanning, Provider Social History Tobacco Use Types Packs/Day Years Used Date Smoking Tobacco: Never Assessed Comments Unknown Sex and Gender Information Value Date Recorded Sex Assigned at Not on file 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 Gender Identity Not on file Sexual Orientation [...] on filedocumented in this encounter Care Teams Esl Instructor Relationship Specialty Start Date End Date Kobi Watkins MD PCP - General 10/29/16 05/05/22 Kobi Watkins MD PCP - General 10/12/16 10/28/16 Kobi Watkins MD PCP - General 04/21/15 10/11/16 Kobi Watkins MD PCP - General 12/03/14 04/20/15 Kobi Watkins MD PCP - General 10/01/14 12/02/14 Kobi Watkins MD PCP - General 01/30/14 09/30/14 Molly Fagan MD [address] [place] [address] [place] [address] PCP - General Family Medicine 05/06/22 12/16/24 Iliana Evans PA [address] [facility] [address] [place] [address] PCP - General Physician Women'S Swim Coach 12/17/24 Jaye Smiley MD [address] [facility] [address] [place] [address] Referring Physician Nephrology 04/07/23 documented as of this encounter
[2025-02-15] MEDS: traMADol HCL (*CRX) 50 MG TABLET PO (12:32)
--- NOTE | 2025-02-15 12:49 | ED_ITS ---
HPI - Fall General Chief Complaint: Fall Stated Complaint: fall Time Seen by Provider: 02/15/25 11:45 Source: patient Mode of arrival: EMS Limitations: no limitations History of Present Illness HPI Narrative: Patient is an 89-year-old female who presents the ED via EMS with report of a fall. Patient reports she was at [facility] today giving blood when she fell off of a stool. The staff there was reportedly attempting to help her off the ground by pulling her up underneath her armpits. Patient complains of pain throughout her left shoulder since then. Worse with movement. Denies any other injuries from the fall. Denies head injury or LOC. Denies numbness. Denies neck or back pain. Related Data Home Medications ?Medication ?Instructions ?Recorded ?Confirmed ?Last Taken ?Type simvastatin 40 mg tablet 40 mg PO HS 12/12/20 10/23/24 04/29/21 History calcium carbonate 600 mg PO BID 04/15/22 10/23/24 Unknown History sitagliptin phosphate 100 mg 100 mg PO DAILY 11/15/22 10/23/24 Unknown History tablet (Januvia) bisacodyl 10 mg rectal suppository 10 mg RECTAL DAILY PRN Constipation 01/08/23 10/23/24 Unknown History cholecalciferol (vitamin D3) 1,250 1,250 mcg PO WEEKLY 01/08/23 10/23/24 Unknown History mcg (50,000 unit) capsule acetaminophen 500 mg capsule 500 mg PO Q6H PRN Pain (Scale 04/21/23 10/23/24 Unknown History Score 1-3) multivitamin with minerals-folic 1 tablet PO DAILY 04/21/23 10/23/24 Unknown History acid 12 mcg chewable tablet (Centrum Adults) magnesium oxide 400 mg PO DAILY 10/24/23 10/23/24 Unknown History Allergies Allergy/AdvReac Type Severity Reaction Status Date / Time influenza A (H1N1) virus Allergy Unknown Swelling Verified 12/27/24 13:03 vaccine [id number] 2008 of Lip/Tongue/Throat Influenza Virus Vaccines Allergy Unknown Swelling Verified 12/27/24 13:03 of Lip/Tongue/Throat phenobarbital AdvReac Mild Hallucinati Verified 12/27/24 13:03 ng Review of Systems Review of Systems: All systems reviewed & are unremarkable except as noted in HPI. All systems reviewed & are unremarkable except as noted in HPI and below PMFSH Past Medical History Medical History Acute UTI Acute kidney injury Acute kidney injury superimposed on CKD Acute bronchitis Subacute sinusitis AVM (arteriovenous malformation) of colon with hemorrhage Acute on chronic blood loss anemia Hematochezia Acute blood loss anemia Peripheral vascular disease Paroxysmal atrial fibrillation Acute GI bleeding Graham lesion, acute (12/2022) Coffee ground emesis GI bleed Nausea and vomiting Acute kidney injury Elevated troponin Cellulitis of left lower extremity Seborrheic dermatitis Hearing loss, bilateral Erythema of toe Encounter for other specified surgical aftercare Diabetic foot infection Acute renal insufficiency Acute UTI Cellulitis of foot, left Dysuria Trigger finger of both hands Primary osteoarthritis of both knees Stenosis of right internal carotid artery 51% stenosis of the proximal right ICA on CTA in December 2021. Severe pulmonary hypertension Noted on echocardiogram April 2021. PASP was 65 mmHg. Aortic valve stenosis [id number] aortic valve stenosis on echocardiogram in April 2021 with a valve area of 1.1 to 1.5 centimeter squared. Left face and left arm tingling Closed fracture of left great toe Cellulitis of second toe, right Cellulitis of foot, left Acute respiratory failure with hypoxia Acute diastolic CHF (congestive heart failure) Diastolic congestive heart failure Echocardiogram on 12/13/2020 showed normal left ventricular size with moderate consent of left ventricular hypertrophy with overall good left ventricular systolic function with an EF measuring 62%. There was hypokinesis of the basal inferoseptal segment as well as grade 1 diastolic dysfunction with moderately enlarged left atrial chamber and atrial septal aneurysm. Urinary tract infection Gastroesophageal reflux Hypertension Diabetic peripheral neuropathy Type 2 diabetes mellitus Hemoglobin A1c was 6.8% on 12/12/2020. Chronic kidney disease, stage 3 DVT prophylaxis Pain in right shoulder Syncope Fracture of proximal end of right humerus (07/24/19) Conservative management Depression Fracture of proximal end of humerus Syncope Anemia History of blood transfusions. 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) Left 5th toe History of toe surgery History of inguinal hernia repair (~2016) History of hysterectomy History of bilateral cataract extraction (~2015) History of rectal polypectomy History of colon resection (~2017) Fracture of right hip requiring operative repair (~2017) History of appendectomy Family History Family History Sibling Carcinoma of colon Father Black lung disease Heart disease Hypertension Mother Hypertension Other Diabetes mellitus Family history of arthritis Family history of gout Family history of heart disease in male family member before age 55 Family history of kidney disease Social History Social History Social History: Patient has been had acute rehab since her arterial stent placement in October 2022. She plans to return to [facility]. She reports that she has been multiple times. She her 2nd twice before he of complications of colon cancer. Retired from [employer] and [employer]. Lifelong nonsmoker. No alcohol or illicit substance use. She designates her son, Ag Marrero, as her surrogate decision maker and she wishes to be a full code. She had 2 sons Justin and Ag. However, Hal is disabled due to multiple strokes. Code status: Full code Smoking status: Never smoker Second hand tobacco smoke exposure: No Alcohol intake: never Substance use: never Substance use type: does not use Do You Feel Safe in your Home?: Yes Lack of Transportation: No Lack of Food: Never True Current Housing: I Have Housing Concerned About Future Housing: No Difficulty Paying Gas/Electric Bills: No Difficulty Paying for Meds: No Currently Unemployed: No Education: High School Diploma/GED Difficulty w/ Childcare or Family Care: No Living arrangements: assisted living Occupation/Education: retired Gender identity (if verbalized by the patient): Female Sexual Orientation (if Verbalized by the Patient): Straight or Heterosexual Spiritual care concerns: No Exam Narrative: GENERAL: Elderly, frail, non-toxic, in no acute distress. HEAD: Normocephalic, atraumatic. RESPIRATORY: Airway patent, respirations nonlabored. CARDIOVASCULAR: Regular rate and rhythm. Radial pulses strong and easily palpable MUSCULOSKELETAL: Moves all extremities. No gross deformities. Mild limited range of motion of left shoulder due to pain. Tenderness to palpation over left anterior shoulder. Sensation intact. SKIN: Warm, dry, normal color. NEURO: A&O X3. Speech clear. No ataxic movements. PSYCHIATRIC: Appropriate mood and affect. Normal interaction. Course Vital Signs Vital signs: Vital Signs Temperature 97.8 F 02/15/25 11:27 Pulse Rate 70 02/15/25 11:27 Respiratory Rate 17 02/15/25 11:27 Blood Pressure 132/54 L 02/15/25 11:27 Pulse Oximetry 97 02/15/25 11:27 Oxygen Delivery Room Air 02/15/25 11:27 Temperature 97.8 F 02/15/25 11:27 Pulse Rate 70 02/15/25 11:27 Respiratory Rate 17 02/15/25 11:27 Blood Pressure 132/54 L 02/15/25 11:27 Pulse Oximetry 97 02/15/25 11:27 Oxygen Delivery Room Air 02/15/25 11:27 MDM - Fall MDM Narrative Medical decision making narrative: Patient?s injury is consistent with musculoskeletal etiology. No signs of neurologic or vascular compromise on physical examination. Compartments are soft without signs of compartment syndrome. XR L shoulder negative for acute osseous abnormality. Pain is consistent with likely shoulder strain. Patient offered sling for comfort and support. Given tramadol here. She takes this at home. She denies any other injuries from the fall. Denies head injury, LOC, neck or back pain. Patient is felt to be stable for discharge home and further outpatient management and treatment. Given return precautions. Discharged in stable condition. Medical Records Attestation: I reviewed the patient's medical records. Imaging Data Attestation: I personally reviewed and interpreted this imaging study as follows: Radiologist's impression: ITS Impressions Shoulder X-Ray 02/15/25 12:44 Impression: Unremarkable left shoulder radiographs. Discharge Plan Discharge Clinical Impression: Strain of left shoulder, Fall from ground level Patient Disposition: Home Condition: Stable Instructions: Antibiotic Form, Shoulder Sprain (ED) Additional Instructions: Your imaging did not show any evidence of fractures. You likely strained your shoulder. Continue Tylenol and your home tramadol as needed for pain. Utilize sling as needed for comfort and support. Follow-up with your primary care doctor for further evaluation. Return to the ED for new or worsening concerns. Patient Language: Wallisian Prescriptions: No Action Januvia 100 mg tablet 100 mg PO DAILY magnesium oxide 400 mg magnesium capsule 400 mg PO DAILY metoprolol tartrate 50 mg tablet 50 mg PO Q12H Qty: 180 3RF Jardiance 25 mg tablet 25 mg PO DAILY Qty: 90 1RF insulin glargine [Lantus U-100 Insulin] 100 unit/mL solution 30 unit subcut HS Qty: 10 5RF insulin lispro [Humalog KwikPen Insulin] 100 unit/mL insulin pen See Rx Instructions subcut TID Qty: 15 3RF Rx Instructions: subcutaneously three times a day; 10 units with breakfast and lunch, 12-15 units with dinner. omeprazole 20 mg capsule,delayed release(DR/EC) 20 mg PO DAILY Qty: 90 0RF allopurinol 100 mg tablet 200 mg PO DAILY Qty: 180 1RF calcium carbonate 600 mg calcium (1,500 mg) tablet 600 mg PO BID ezetimibe 10 mg tablet 10 mg PO DAILY Qty: 90 4RF ferrous sulfate [FeroSul] 325 mg (65 mg iron) tablet 325 mg PO DAILY Qty: 30 2RF simvastatin 40 mg tablet 40 mg PO HS bisacodyl 10 mg Suppository 10 mg RECTAL DAILY PRN (Reason: Constipation) Rx Instructions: PRN for constipation if no results for MOM cholecalciferol (vitamin D3) 1,250 mcg (50,000 unit) Capsule 1,250 mcg PO WEEKLY Rx Instructions: every tuesday Centrum Adults 12 mcg Tablet,Chewable 1 tablet PO DAILY acetaminophen 500 mg capsule 500 mg PO Q6H PRN (Reason: Pain (Scale Score 1-3)) cefdinir 300 mg capsule 300 mg PO Q12H 5 Days Qty: 10 0RF hydroxyzine HCl 25 mg tablet 25 mg PO BID PRN (Reason: itching) Qty: 10 0RF furosemide 20 mg tablet 20 mg PO QAM Qty: 90 0RF (DME) OneTouch Verio test strips Strip See Rx Instructions .Route Qty: 100 0RF Rx Instructions: use to check blood sugar once a day glucose [Dex4 Glucose] 4 gram tablet,chewable 4 g PO Q15M PRN (Reason: hypoglycemia) Qty: 7 0RF Rx Instructions: until symptoms of low blood sugar are controlled (DME) Depend Easy Fit Undergarments Misc See Rx Instructions .Route Qty: 120 0RF Rx Instructions: use daily for urinary incontinence trazodone 50 mg tablet 50 mg PO QHS Qty: 90 2RF loperamide 2 mg capsule See Rx Instructions .ROUTE .COMPLEX Qty: 60 2RF Dose Instruction: TAKE 1 CAPSULE BY MOUTH FOUR TIMES DAILY NEEDED Rx Instructions: TAKE 1 CAPSULE BY MOUTH FOUR TIMES DAILY NEEDED meclizine 12.5 mg tablet See Rx Instructions .ROUTE .COMPLEX Qty: 60 0RF Dose Instruction: TAKE 1 TABLET BY MOUTH EVERY 12 HOURS NEEDED FOR DIZZINESS Rx Instructions: TAKE 1 TABLET BY MOUTH EVERY 12 HOURS NEEDED FOR DIZZINESS fluticasone propionate 50 mcg/actuation spray,suspension See Rx Instructions .ROUTE .COMPLEX Qty: 16 2RF Dose Instruction: USE 1 SPRAY IN EACH NOSTRIL TWICE DAILY IN THE MORNING AND AT BEDTIME Rx Instructions: USE 1 SPRAY IN EACH NOSTRIL TWICE DAILY IN THE MORNING AND AT BEDTIME (DME) Novofine Autocover 30 gauge x 1/3 needle See Rx Instructions .Route Qty: 100 4RF Rx Instructions: As directed colchicine 0.6 mg tablet 0.6 mg PO .COMPLEX Qty: 5 0RF Rx Instructions: 2 po once, then one po q1 hr x 3 triamcinolone acetonide 0.1 % cream 1 applic topical BID Qty: 30 0RF Rx Instructions: apply to affected area twice daily for no more than 2 weeks tramadol 50 mg tablet 50 mg PO QID Qty: 120 0RF ketoconazole 2 % shampoo 1 applic topical 3XW Qty: 120 1RF Rx Instructions: use Tuesday, Tuesday, Tuesday. Follow-up/Referrals: Christopher Aguiar MD [Primary Care Provider] - Time of Disposition: 12:53
== END 2025-02-15 13:18 | disposition home or self-care (01) ==
PROVIDERS: Emergency Provider Physician Assistant; PCP Family Medicine
DX: S46.912A Strain of unspecified muscle, fascia and tendon at shoulder and upper arm level, left arm, initial encounter (principal); I48.0 Paroxysmal atrial fibrillation; E11.22 Type 2 diabetes mellitus with diabetic chronic kidney disease; I13.0 Hypertensive heart and chronic kidney disease with heart failure and stage 1 through stage 4 chronic kidney disease, or unspecified chronic kidney disease; N18.30 Chronic kidney disease, stage 3 unspecified; I50.30 Unspecified diastolic (congestive) heart failure; E11.51 Type 2 diabetes mellitus with diabetic peripheral angiopathy without gangrene; I73.9 Peripheral vascular disease, unspecified; I65.21 Occlusion and stenosis of right carotid artery; I27.20 Pulmonary hypertension, unspecified; I35.0 Nonrheumatic aortic (valve) stenosis; E78.5 Hyperlipidemia, unspecified; M17.0 Bilateral primary osteoarthritis of knee; K21.9 Gastro-esophageal reflux disease without esophagitis; Z87.440 Personal history of urinary (tract) infections; Z89.422 Acquired absence of other left toe(s); Z90.710 Acquired absence of both cervix and uterus; Z90.49 Acquired absence of other specified parts of digestive tract; Z86.0100 Personal history of colon polyps, unspecified; Z79.84 Long term (current) use of oral hypoglycemic drugs; Z79.899 Other long term (current) drug therapy; Z79.4 Long term (current) use of insulin; W08.XXXA Fall from other furniture, initial encounter; X50.9XXA Other and unspecified overexertion or strenuous movements or postures, initial encounter
CPT/HCPCS: 73030; 99283; A4565; A9270

== ENCOUNTER 2025-05-28 07:32 | Inpatient (IN) | payer MEDICARE, SELFPAY ==
[2025-05-28] VITALS (31 sets, daily range): BP systolic 91–131; BP diastolic 50–93; PULSE 87–142; RESP 12–27; TEMP 36.4–36.9; O2SAT 93–99; BMI 21.8
--- NOTE | ~2025-05-28 | CT_ITS ---
Exam: CT chest with contrast Clinical History: [Atelectasis or inflammatory/infectious process. ] Comparison: [ CT abdomen pelvis PA chest 12/24/2022] Technique: Multiple axial CT images of the chest with IV contrast. Sagittal and coronal reformatted images were obtained. FINDINGS: Lungs and pleura: [ Tracheal bronchial tree is patent. No pneumothorax. No pleural effusion. No pulmonary mass.] Mild biapical scarring similar to the prior study. There are a few reticular, bandlike and groundglass opacities in the mid and lower lungs. There are a few small patchy consolidations in the left lower lung. Mediastinum and pulmonary marcia: Grossly stable mediastinal and hilar lymph nodes. Axillary/intramammary and supraclavicular: [ No mass or adenopathy.] Heart and great vessels: [ [ No pericardial effusion.] [ No aneurysm.] Coronary artery calcifications. Heart is moderately enlarged. Chest Wall: [ Unremarkable.] Upper Abdomen: Moderate-sized hiatal hernia. Splenic granulomata identified. Osseous structures: [ No acute fracture lesion.] [ Multilevel degenerative change in the visualized spine.] Additional findings: The study is slightly limited due to motion artifact. IMPRESSION: 1. There are a few reticular, bandlike and groundglass opacities in the mid and lower lungs. In addition, there are a few small patchy consolidations in the left lower lung. Differential includes atelectasis/scarring and/or an inflammatory/infectious process. 2. Moderate-sized hiatal hernia. Reviewed, dictated and finalized at location Q. IMPRESSION: 1. There are a few reticular, bandlike and groundglass opacities in the mid and lower lungs. In addition, there are a few small patchy consolidations in the l eft lower lung. Differential includes atelectasis/scarring and/or an inflammato ry/infectious process. 2. Moderate-sized hiatal hernia.
--- NOTE | ~2025-05-28 | XR_ITS ---
Clinical history:A fib with RVR EXAM:X-ray chest one view portable TECHNIQUE:A single AP semiupright frontal portable images of the chest were obtained. Comparisons:02/07/2025 FINDINGS: Heart is enlarged. No pneumothorax. No pleural effusion. No free air under the diaphragm. Probable large hiatal hernia. Small opacities in the mid and lower lungs, greater on the left. IMPRESSION: Small opacities in the mid and lower lungs, greater on the left, which likely represents atelectasis or inflammatory/infectious process. Recommend follow-up to resolution to exclude underlying nodule. Consider a chest CT. Probable large hiatal hernia. If symptoms persist or worsen, consider a short-term follow-up study or additional imaging for further assessment. Reviewed, dictated and finalized at location Q. IMPRESSION: Small opacities in the mid and lower lungs, greater on the left, which likely r epresents atelectasis or inflammatory/infectious process. Recommend follow-up t o resolution to exclude underlying nodule. Consider a chest CT. Probable large hiatal hernia. If symptoms persist or worsen, consider a short-term follow-up study or additio nal imaging for further assessment.
--- NOTE | 2025-05-28 07:39 | ECG_ITS ---
Test Date: 2025-05-28 07:39:45 Measurements Intervals [facility] Rate: 123 P: 0 [place]: 0 QRS: 109 QRSD: 135 T: -18 QT: 318 QTc: 456 Interpretive Statements ATRIAL FIBRILLATION WITH RAPID VENTRICULAR RESPONSE RIGHT AXIS DEVIATION RIGHT BUNDLE BRANCH BLOCK BASELINE ARTIFACT- I, II, III, AVR, AVF ABNORMAL ECG No previous ECG available for comparison Electronically Signed On 05-28-2025 08:44:44 CDT by Zackery Caldera D.O.
--- NOTE | 2025-05-28 07:43 | ED.GENADULT ---
HPI - General Adult General Chief complaint: Chest Pain Stated complaint: chest discomfort Time Seen by Provider: 05/28/25 07:34 History of Present Illness HPI narrative: 89-year-old female presenting to the emergency department for evaluation for back pain and some shortness of breath. Patient denies any associated chest pain. Patient does have history of AFib and does take metoprolol. Patient states that she did get all of her morning medications including her metoprolol this morning. Upon arrival to the emergency department patient does have a heart rate of 146 and is AFib with RVR. Patient states she was having some back pain last night and felt that her gout was bothering her. Patient states the pain was persistent. Related Data Home Medications ?Medication ?Instructions ?Recorded ?Confirmed ?Last Taken ?Type simvastatin 40 mg tablet 40 mg PO HS 12/12/20 05/28/25 05/27/25 History calcium carbonate 600 mg PO BID 04/15/22 05/28/25 05/28/25 History bisacodyl 10 mg rectal suppository 10 mg RECTAL DAILY PRN Constipation 01/08/23 05/28/25 Unknown History cholecalciferol (vitamin D3) 1,250 1,250 mcg PO WEEKLY 01/08/23 05/28/25 05/21/25 History mcg (50,000 unit) capsule acetaminophen 500 mg capsule 500 mg PO Q6H PRN Pain (Scale 04/21/23 05/28/25 Unknown History Score 1-3) multivitamin with minerals-folic 1 tablet PO DAILY 04/21/23 05/28/25 05/27/25 History acid 12 mcg chewable tablet (Centrum Adults) magnesium oxide 400 mg PO DAILY 10/24/23 05/28/25 05/27/25 History insulin glargine 100 unit/mL 25 unit subcut HS 05/28/25 05/28/25 Unknown History subcutaneous solution (Lantus U-100 Insulin) Allergies Allergy/AdvReac Type Severity Reaction Status Date / Time atorvastatin Allergy Unknown Unknown Verified 05/28/25 12:04 glyburide Allergy Unknown Unknown Verified 05/28/25 12:04 influenza A (H1N1) virus Allergy Unknown Swelling Verified 05/28/25 12:04 vaccine m-jong-split 2008 of Lip/Tongue/Throat Influenza Virus Vaccines Allergy Unknown Swelling Verified 05/28/25 12:04 of Lip/Tongue/Throat phenobarbital AdvReac Mild Hallucinati Verified 05/28/25 12:04 ng Review of Systems Review of Systems: All systems reviewed & are unremarkable except as noted in HPI and below [facility] Past Medical History Medical History (Updated 05/28/25 @ 17:46 by Michael Ashraf MD) Stage 4 chronic kidney disease Anemia History of blood transfusions. Hiatal hernia with GERD Graham lesion, acute (12/2022) Type 2 diabetes mellitus 6.5% 11/2024 Stenosis of right internal carotid artery 51% stenosis of the proximal right ICA on CTA in December 2021. Peripheral vascular disease Severe pulmonary hypertension Hypertension Acute kidney injury superimposed on CKD AVM (arteriovenous malformation) of colon with hemorrhage Acute on chronic blood loss anemia Hematochezia Paroxysmal atrial fibrillation Coffee ground emesis GI bleed Seborrheic dermatitis Hearing loss, bilateral Encounter for other specified surgical aftercare Diabetic foot infection Trigger finger of both hands Primary osteoarthritis of both knees Aortic valve stenosis Luyz-fb-zprunkrm aortic valve stenosis on echocardiogram in April 2021 with a valve area of 1.1 to 1.5 centimeter squared. Closed fracture of left great toe Cellulitis of second toe, right Cellulitis of foot, left Diastolic congestive heart failure Echocardiogram on 12/13/2020 showed normal left ventricular size with moderate consent of left ventricular hypertrophy with overall good left ventricular systolic function with an EF measuring 62%. There was hypokinesis of the basal inferoseptal segment as well as grade 1 diastolic dysfunction with moderately enlarged left atrial chamber and atrial septal aneurysm. 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) Left 5th toe History of toe surgery History of inguinal hernia repair (~2016) History of hysterectomy History of bilateral cataract extraction (~2015) History of rectal polypectomy History of colon resection (~2017) Fracture of right hip requiring operative repair (~2017) History of appendectomy Family History Family History Sibling Carcinoma of colon Father Black lung disease Heart disease Hypertension Mother Hypertension Other Diabetes mellitus Family history of arthritis Family history of gout Family history of heart disease in male family member before age 55 Family history of kidney disease Social History Social History Social History: Patient has been had acute rehab since her arterial stent placement in October 2022. She plans to return to [facility]. She reports that she has been multiple times. She her 2nd twice before he of complications of colon cancer. 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 Lifelong nonsmoker. No alcohol or illicit substance use. She designates her son, Ag Marrero, as her surrogate decision maker and she wishes to be a full code. She had 2 sons Justin and Ag. However, Hal is disabled due to multiple strokes. Code status: Full code Smoking status: Never smoker Second hand tobacco smoke exposure: No Alcohol intake: never Substance use: never Substance use type: does not use Do You Feel Safe in your Home?: Yes Lack of Transportation: No Lack of Food: Never True Current Housing: I Have Housing Concerned About Future Housing: No Difficulty Paying Gas/Electric Bills: No Difficulty Paying for Meds: No Currently Unemployed: No Education: Decline to Answer Difficulty w/ Childcare or Family Care: No Living arrangements: assisted living Occupation/Education: retired Gender identity (if verbalized by the patient): Female Sexual Orientation (if Verbalized by the Patient): Straight or Heterosexual Spiritual care concerns: No Exam Narrative: APPEARANCE: Well appearing, no pain, no distress, well-nourished. HEAD: normocephalic, atraumatic. EYES: PERRLA/EOMI, conjunctivae clear. NOSE: Normal no drainage EARS:TMS clear with good light reflex. THROAT: Pharynx clear, no exudate. NECK: Supple. No adenopathy, no masses. RESPIRATORY: Airway patent, respirations nonlabored. Clear to auscultation bilaterally, no rales, rhonchi, wheezing. CARDIOVASCULAR: AFib with RVR ABDOMINAL: Soft, nontender, nondistended, normal bowel sounds MUSCULOSKELETAL: Moves all extremities. Strength/ROM intact, No edema, No calf tenderness. NEURO: Alert. Cranial nerves II through XII intact. Good gait. Good coordination SKIN: Warm, dry. Normal Color Course Vital Signs Vital signs: Vital Signs Temperature 97.5 F L 05/28/25 07:32 Pulse Rate 138 H 05/28/25 07:32 Respiratory Rate 18 05/28/25 07:32 Pulse Oximetry 97 05/28/25 07:32 Oxygen Delivery Room Air 05/28/25 07:32 Temperature 97.6 F 05/28/25 16:00 Pulse Rate 104 H 05/28/25 16:00 Respiratory Rate 14 05/28/25 16:00 Blood Pressure 111/88 05/28/25 16:00 Pulse Oximetry 94 05/28/25 16:00 Oxygen Delivery Room Air 05/28/25 12:00 Medical Decision Making MDM Narrative Medical decision making narrative: 89-year-old female present to the emergency department for evaluation for AFib with RVR and back pain. Patient's heart rate was in the 140s upon arrival emergency department. She was treated with a dose of IV Lopressor with no significant change in her heart rate. Patient was started on diltiazem bolus and infusion. Patient was also treated with her daily dose of Lasix. Patient is afebrile with no leukocytosis hemoglobin 11.8. INR of 1.1. Patient is a creatinine of 1.77 which is mildly higher than her typical baseline. Patient did have an elevated troponin at 0.038 this did improve at the 3 hour to 0.035. [place] [address] and patient was treated with Lasix. Critical Care Procedure Note Authorized and Performed by: Michael Ashraf Total critical care time: Approximately 36 minutes Due to a high probability of clinically significant, life threatening deterioration, the patient required my highest level of preparedness to intervene emergently and I personally spent this critical care time directly and personally managing the patient. This critical care time included obtaining a history; examining the patient; pulse oximetry; ordering and review of studies; arranging urgent treatment with development of a management plan; evaluation of patient's response to treatment; frequent reassessment; and, discussions with other providers. This critical care time was performed to assess and manage the high probability of imminent, life-threatening deterioration that could result in multi-organ failure. It was exclusive of separately billable procedures and treating other patients and teaching time. Please see MDM section and the rest of the note for further information on patient assessment and treatment. Differential Diagnosis Differential Diagnosis: CHF, pneumonia, ACS Vital Signs Vital Signs: Vital Signs Temperature 97.5 F L 05/28/25 07:32 Pulse Rate 138 H 05/28/25 07:32 Respiratory Rate 18 05/28/25 07:32 Pulse Oximetry 97 05/28/25 07:32 Oxygen Delivery Room Air 05/28/25 07:32 Temperature 97.6 F 05/28/25 16:00 Pulse Rate 104 H 05/28/25 16:00 Respiratory Rate 14 05/28/25 16:00 Blood Pressure 111/88 05/28/25 16:00 Pulse Oximetry 94 05/28/25 16:00 Oxygen Delivery Room Air 05/28/25 12:00 Lab Data Lab results reviewed: Yes I reviewed the patient's lab results. 05/28/25 07:58 05/28/25 07:58 Labs: Lab Results 05/28/25 05/28/25 Range/Units 07:58 10:24 WBC 5.8 (4.5-10.0) K/mm3 RBC 3.62 L (4.2-5.4) M/mm3 Hgb 11.8 L (12.0-15.0) g/dL Hct 37.0 (37.0-47.0) % MCV 102.2 H (80-100) fl MCH 32.6 (26-34) pg MCHC 31.9 L (32-36) g/dl RDW 15.0 H (11.5-14.5) % Plt Count 188 (150-375) k/mm3 MPV 9.0 (7.4-10.4) fl Immature Gran % (Auto) 0.5 (0-0.5) % Neut % (Auto) 59.8 (45.5-73.1) % Lymph % (Auto) 29.5 (18.3-44.2) % [place] % (Auto) 6.3 (2.6-8.5) % Eos % (Auto) 3.4 (0-4.4) % Baso % (Auto) 0.5 (0.2-1.2) % Lymph # (Auto) 1.72 (0.9-3.2) K/mm3 [place] # (Auto) 0.4 (0.1-0.6) K/mm3 Eos # (Auto) 0.2 (0-0.3) K/mm3 Baso # (Auto) 0.0 (0.0-0.1) K/mm3 Abs Immat Gran (auto) 0.03 (0.00-0.031) K/mm3 Absolute Neuts (auto) 3.5 (1.3-6.7) K/mm3 Absolute Nucleated RBC 0.000 (0.0-0.012) K/mm3 Nucleated RBC % 0.0 (0.0-0.2) % PT 14.2 (11.1-14.7) Seconds INR 1.1 APTT 30.6 (22.3-36.8) Seconds Sodium 135 L (137-145) mmol/L Potassium 4.0 (3.4-5.0) mmol/L Chloride 101 (98-107) mmol/L Carbon Dioxide 25 (22-30) mmol/L Anion Gap 9 (4-12) mmol/L BUN 33 H (7-17) mg/dL Creatinine 1.77 H (0.7-1.0) mg/dL Estim Creat Clear Calc 19 ml/min Estimated GFR 27 L (59 - ) Glucose 158 H (65-110) mg/dL Calcium 9.3 (8.4-10.2) mg/dL Magnesium 1.9 (1.6-2.3) mg/dL Total Bilirubin 0.4 (0.2-1.3) mg/dL AST 30 (14-36) U/L ALT 16 (6-35) U/L Alkaline Phosphatase 88 (38-126) U/L Troponin I 0.038 H* 0.035 H* (0.000-0.034) ng/mL NT-Pro-B Natriuret Pep 29114 H (19.9-100) pg/mL Total Protein 7.0 (6.3-8.2) g/dL Albumin 4.2 (3.5-5.1) g/dL Critical Care Time Critical Care Time Critical Care Time: Yes Total Critical Care Time: 35 Discharge Plan Discharge Clinical Impression: Atrial fibrillation with RVR Patient Disposition: Still a Patient Condition: Serious
--- OUTSIDE RECORDS SUMMARY | 2025-05-28 07:47 | XMS_ITS | Encounter Summary ---
Author Organization [facility] Medical [facility] Address [address] [place] [address] Care Team Providers Care Him Coder Name Role Phone Kobi Watkins MD Primary Care Provider +- [phone] Kobi Watkins MD Primary Care Provider + [phone] Kobi Watkins MD Primary Care Provider + [phone] Kobi Watkins MD Primary Care Provider + [phone] Kobi Watkins MD Primary Care Provider + [phone] Kobi Watkins MD Primary Care Provider + [phone] Molly Fagan MD Primary Care Provider Jaye Smiley MD Unavailable [phone] Iliana Evans Primary Care Provide r Encounter Details Date Type Department Care Team (Late st Contact Info) Description 03/12/2014 Orders Only [facility] Health Information Management [address] [place] [address] Scanning, Provider Social History Tobacco Use Types Packs/Day Years Used Date Smoking Tobacco: Never Assessed Comments Unknown Sex and Gender Information Value Date Recorded Sex Assigned at Not on file Legal Sex Female 9:25 AM CONFLICTS ANALYST Gender Identity Not on file Sexual Orientation [...] on filedocumented in this encounter Care Teams Him Coder Relationship Specialty Start Date End Date Kobi Watkins MD PCP - General 10/29/16 05/05/22 Kobi Watkins MD PCP - General 10/12/16 10/28/16 Kobi Watkins MD PCP - General 04/21/15 10/11/16 Kobi Watkins MD PCP - General 12/03/14 04/20/15 Kobi Watkins MD PCP - General 10/01/14 12/02/14 Kobi Watkins MD PCP - General 01/30/14 09/30/14 Molly Fagan MD [address] [place] [address] PCP - General Family Medicine 05/06/22 12/16/24 Iliana Evans PA [address] [place] [address] PCP - General Physician Furnace Liner 12/17/24 Jaye Smiley MD [address] [facility] [address] [place] [address] Referring Physician Nephrology 04/07/23 documented as of this encounter
--- OUTSIDE RECORDS SUMMARY | 2025-05-28 07:47 | XMS_ITS | Clinical Summary ---
Author Organization [facility] Address [address] [place] [id number] Care Team Providers Care Director Of Land Name Role Phone Jaye Smiley MD Unavailable [phone] Iliana Evans Primary Care Provide r Allergies [...] problem. Managed by renal Dr Smiley at [place]. 08/25/21 GFR=35, CR=1.37. Assessment & Plan (04/07/2023 1:48 PM CDT): Chronic problem. Managed by renal Dr Smiley at [place]. ALEXANDER 02/07/23; NOV 06/13/23. 08/25/21 GFR=35, CR=1.37. Had labs completed 01/[address] Smiley. Will have her sign release to get copy of labs from his office and/or [facility]. Chronic kidney disease 12/02/2022 Assessment & Plan (12/02/2022 1:58 PM CDT): Chronic problem. Managed by Dr Jordi Smiley at [facility]. Next OV 02/07/23. 03/11/22 GFR=37, CR=1.40. 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 Last lipid panel: 03/11/22 LDL=72, ZN=976. Will update labs today. Does not mychart. Verified phone #/address to contact re: results. Assessment & Plan (04/07/2023 1:16 PM CDT): Chronic problem, currently taking Simvastatin 40mg, zetia 10mg. Last lipid panel: 03/11/22 LDL=72, PC=756. No changes at this time. Assessment & Plan (01/25/2023 2:30 PM CDT): Chronic problem, currently taking Simvastatin 40mg, zetia 10mg. Last lipid panel: 03/11/22 LDL=72, IS=498. No changes at this time. Assessment & Plan (12/02/2022 1:01 PM CDT): Chronic problem, currently taking Simvastatin 40mg, zetia 10mg. Last lipid panel: 03/11/22 LDL=72, CH=993. No changes at this time. Assessment & [...] infection. Assessment & Plan (08/11/2023 2:02 PM REMANUFACTURING TECHNICIAN): Hba1c was Lab Results Component Value Date [...] today. Reports DM eye exam 2021 at [facility] in [place], [place]. Letter sent to get copy of [...] Januvia Assessment & Plan (08/14/2020 2:20 PM REMANUFACTURING TECHNICIAN): Hba1c was Lab Results Component Value Date [...] reviewed. Assessment & Plan (07/05/2019 2:12 PM REMANUFACTURING TECHNICIAN): A1c 6.3 without reported hypoglycemia. Continue metformin and Januvia. Will check labs. Continue follow up with podiatry. BG and A1c goals reviewed. Assessment & Plan (06/20/2018 1:45 PM REMANUFACTURING TECHNICIAN): Hba1c was Lab Results Component Value Date [...] metformin Assessment & Plan (09/08/2017 10:58 AM REMANUFACTURING TECHNICIAN): Hba1c was 5.8 today, indicating proper DM [...] meds Assessment & Plan (07/05/2019 2:12 PM REMANUFACTURING TECHNICIAN): Controlled on current medications. Continue plan. Assessment & Plan (09/08/2017 10:55 AM REMANUFACTURING TECHNICIAN): Goal blood pressure is less than 140/85 Low salt diet recommended Daily aerobic exercise Continue current meds, including BELIA-I or ARB Mixed hyperlipidemia 09/08/2017 023 Assessment & Plan (02/07/2020 2:52 PM CDT): Continue statin therapy Assessment & Plan (11/08/2019 1:40 PM CDT): Continue statin therapy Assessment & Plan (07/05/2019 2:13 PM REMANUFACTURING TECHNICIAN): Check lipid panel Assessment & Plan (09/08/2017 11:00 AM REMANUFACTURING TECHNICIAN): Goal of treatment , LDL cholesterol less than 100 ( less than 70 in patients with history of heart attacks and / or strokes ) NonHDL cholesterol goal less than 130 ( less than 100 in patients with history of heart attacks and / or strokes ) Continue statin therapy Surgical History Surgery Date Site/Laterality Comments OTHER SURGICAL HISTORY colon perforation: Hand Assist Laparoscopic Right Colectomy HYSTERECTOMY hysterectomy Medical History Medical History Date Comments Diabetes mellitus Diabetes husami tus; Comments: [facility] 12/27/2013 - Hx Other Medical neuropathy; Com ments: [facility] 12/27/2013 - Hx Other Medical hyperlipidemia; Comments: [facility] 12/27/2013 - Hx Other Medical kidney problems ; Comments: [facility] 12/27/2013 - Hx Other Medical L foot ulcers; Comments: [facility] 12/27/2013 - Hx Other Medical not claustropho bic; Comments: [facility] 01/30/2014 - Hx Other Medical colon perforati on; Comments: [facility] 05/14/2015 - Diabetes mellitus Diabetes husami tus; Comments: [facility] 05/14/2015 - Hypertension Hypertension Hyperlipidemia Hyperlipidemia; Comments: [facility] 05/14/2015 - Fracture closed, humerus Gout [...] on file Legal Sex Female 9:25 AM REMANUFACTURING TECHNICIAN Gender Identity Not on file Sexual Orientation Not on file Obstetrics History Last Filed Vital Signs Vital Sign Reading Time Taken Comments Blood Pressure 142/64 12/17/2024 1:03 PM CDT Pulse 66 12/17/2024 1:03 PM CDT Temperature 35.9 C (96.7 F) 08/08/2019 1:23 PM REMANUFACTURING TECHNICIAN Respiratory Rate 18 12/15/2023 1:28 PM CDT [...] 65+ 2001 DTaP/Tdap/Td Vaccine (1 - Tdap) 01/21/2017 7 eGFR 08/25/2022 08/25/2021, 08/01, 08/03/2021, Additional history exists Depression Screening 11/12/2022 11/12/2021, 08/14/2020, 12/28/2018, Additional history exists Lipid Panel 03/11/2023 03/11/2022, 09/01, 03/19/2021, Additional history exists Albumin Creatinine Ratio, Urine 12/08/2023 3, 07/09/2019 Dilated Eye Exam 04/28/2024 04/28/2023, , [...] BASIC METABOLIC PANEL Routine 08/25/2021 1:21 PM REMANUFACTURING TECHNICIAN Chronic diastolic heart failure (HCC) POCT LIPID PANEL Routine 03/19/2021 11:2 8 AM CDT Type 2 diabetes mellitus with hyperglycemia, unspecified whether intermodal customer service insulin use (HCC) from Last 3 Months [...] - 12/08/2022 12:11 PM CDT Performed at: [address] [place] [id number] Cylinder Block Hole Reliner: Rob Sierra PhD, Phone: [phone] us Linette Allen CAPITAL PROJECT ENGINEER LAB URINE ORDERABLES Tiffanie l Result [facility] - * (ABNORMAL) Basic metabolic panel (08/25/2021 1:21 PM REMANUFACTURING TECHNICIAN) Pathologist [facility] Glucose 146(H) 65 - 99 mg/dL [facility] - 01 BUN 56(H) 8 - 27 mg/dL [facility] - 01 Creatinine, Serum 1.37(H) 0.57 - 1.00 mg/dL [facility] - 01 eGFR If NonAfricn Am 35(L) >59 mL/min/1. 73 [facility] - 01 eGFR If Africn Am 41(L) >59 mL/min/1. 73 [facility] - 01 Comment: In accordance with recommendations from the NKF-ASN Task force, [facility] is in the process of updating [...] 01 Blood specimen (specimen) 08/25/2021 1:21 PM REMANUFACTURING TECHNICIAN 08/25/2021 Narrative [facility] - 08/26/2021 6:09 AM REMANUFACTURING TECHNICIAN Performed at: [address] [place] [id number] Cylinder Block Hole Reliner: Rob Sierra PhD, Phone: [phone] us Xiomara Reynolds NP LAB BLOOD ORDERABLES [...] Most Recently Relevant to Health Maintenance Insurance [facility] MEDICARE ADVANTAGE [facility] MDCR HMO REF [facility] MEDICARE ADVANTAGE [address] [address] [facility] MEDIC[facility] ADVANTAGE Advance Directives For more information, please contact: [phone] Documents on File Type Date Recorded Patient Binder Roller Expl anation Power of Salesperson [employer] 05/24/2024 1:13 PM Care Teams Director Of Land Relationship Specialty Start Date End Date Iliana Evans PA [address] [place] [address] PCP - General Physician Retail Cashier Associate 12/17/24 Jaye Smiley MD Referring Physician Nephrology 04/07/23
--- OUTSIDE RECORDS SUMMARY | 2025-05-28 07:47 | XMS_ITS | Encounter Summary ---
Author Organization [facility] Medical Group Address [address] [place] [id number] Care Team Providers Care Knife Machine Operator Name Role Phone Kobi Watkins MD Primary Care Provider [phone] Kobi Watkins MD Primary Care Provider + [phone] Kobi Watkins MD Primary Care Provider +- [phone] Molly Fagan MD Primary Care Provider Jaye Smiley MD Unavailable [phone] Iliana Evans Primary Care Provide r Encounter Details Date Type Department Care Team (Late st Contact Info) Description 10/05/2016 Orders Only [facility] ProviderGregory MD [address] [place] [id number] Social History Tobacco Use Types Packs/Day Years Used Date Smoking Tobacco: Never Alcohol Use Standard Drinks/Week Comments No 0 (1 standard drink = 0.6 oz pur e alcohol) Comments Unknown Sex and Gender Information Value Date Recorded Sex Assigned at Not on file Legal Sex Female 9:25 AM SYSTEM SAFETY ENGINEER Gender Identity Not on file Sexual Orientation [...] on filedocumented in this encounter Care Teams Knife Machine Operator Relationship Specialty Start Date End Date Kobi Watkins MD PCP - General 10/29/16 05/05/22 Kobi Watkins MD PCP - General 10/12/16 10/28/16 Kobi Watkins MD PCP - General 04/21/15 10/11/16 Molly Fagan MD [address] [facility] [address] [place] [address] PCP - General Family Medicine 05/06/22 12/16/24 Iliana Evans PA [address] [address] PCP - General Physician Gauge Machine Operator 12/17/24 Jaye Smiley MD [address] [facility] [address] [place] [address] Referring Physician Nephrology 04/07/23 documented as of this encounter
--- OUTSIDE RECORDS SUMMARY | 2025-05-28 07:47 | XMS_ITS | Patient Health Record ---
Author Organization [facility] Address [address] [place], [place] [address] Care Team Providers Care Environmental Technology Professor Name Role Phone Kobi Watkins Primary Care Provider Alirio Vickers Unavailable [phone] Allergies Allergen (clinical drug ingredient) Drug/Non Drug [...] at bedtime as needed Orally Once a day; Duration: 30 day(s) Active Januvia 100 MG 1 [...] 81 MG 1 tablet Orally Once a day; Duration: 30 day(s) Active Allergy Relief Not-T aking [...] Problem Status W/U Status Risk Notes Problem Acute renal failure syndrome (11027914) Acute kidney failure, unspecified (N17.9) Active confirmed probably related to recent UTI, it is resolving Problem Chronic kidney disease stage 2 (disorder) (411078645) CKD (chronic kidney disease) stage 2, GFR 60-89 ml/min (N18.2) Active confirmed renal function is stable. 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) Active confirmed Low Problem Diabetic renal disease (896755096) Type 2 diabetes mellitus with diabetic chronic kidney disease (E11.22) Active confirmed Problem Urinary tract infectious disease (49926438) UTI (urinary tract infection) (N39.0) Active confirmed Problem Nephropathy due to secondary diabetes mellitus (726602801206941 ) Secondary diabetes mellitus with renal manifestations, not stated as uncontrolled, 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) Active confirmed Low Problem Type I diabetes mellitus without complication (831323518) Type I (juvenile type) diabetes mellitus without mention of complication, not stated as uncontrolled (E10.9) Active confirmed Low Problem Urinary tract infectious disease (04815973) Urinary tract infection without hematuria, site unspecified (N39.0) Active confirmed Problem Chronic kidney disease stage 3A (338246600) Stage 3a chronic kidney disease (N18.31) Active [...] Start Date Coverage End Date Medicare Complete [address] [address] [place] [address] [id number] Elizabeth Villegas Self - patient is the insured Medical (General) History Medical History History ICD Code Hypertension, Type 2 diabetes, Hyperlipi demia, Anemia, Leg edema
--- OUTSIDE RECORDS SUMMARY | 2025-05-28 07:47 | XMS_ITS | Encounter Summary ---
Author Organization [facility] Address [address] [place] [address] Care Team Providers Care Plumbing Assembler Installer Name Role Phone Kobi Watkins MD Primary Care Provider Unav ailable Jhon Riley MD Unavailable [phone] Carrol Chun RN Unavailable Unavailab Molly Fagan MD Primary Care Provider + Encounter Details Date Type Department Care Team (Late st Contact Info) Description 06/16/2016 [facility] Outpatient Visit [facility] [address] [place] [address] Jhon Riley MD [address] [address] Social History Tobacco Use Types Packs/Day Years Used Date Smoking Tobacco: Former Cigarettes Q uit: 06/1984 Smokeless Tobacco: Never Alcohol Use Standard Drinks/Week Comments No 0 (1 standard drink = 0.6 oz pur e alcohol) Comments No Sex and Gender Information Value Date Recorded Sex Assigned at Not on file Legal Sex Female 6:15 AM CENSUS TAKER Gender Identity Not on file Sexual Orientation Not on file documented as of this encounter Plan of Treatment Not on file documented as of this encounter Visit Diagnoses Not on filedocumented in this encounter Care Teams Plumbing Assembler Installer Relationship Specialty Start Date End Date Kobi Watkins MD PCP - General Family Medicine 06/16/16 09/09/22 Molly Fagan MD [address] [place] [address] PCP - General 09/10/22 Jhon Riley MD [address] [address] General Surgery 06/16/16 Carrol Chun, RICHARD Registered Nurse - Cardiopulmonary Rehab 08/16/16 documented as of this encounter
--- OUTSIDE RECORDS SUMMARY | 2025-05-28 07:47 | XMS_ITS | Clinical Summary ---
Author Organization [facility] Address [address] [place] [address] Care Team Providers Care Dispersion Mixer Name Role Phone Jhon Riley MD Unavailable [phone] Carrol Chun RN Unavailable Unavailab Molly Gill MD Primary Care Provider + Source Comments [facility],non-owned Affiliates and Associated Physician Practices is amultiple site organization consisting of ambulatory clinics and hospital sitesin [place] and [place]. This disclosure is being madepursuant to the Care Everywhere program and may not contain all information available regarding this patient. Last updated 18.[facility] Allergies Active Allergy Reactions Criticality Noted Date [...] fluticasone propionate (FLONASE) 50 MCG/ACT nasal spray [place] 1 [place] into each nostril once daily 04/28/20 16 [...] on file Legal Sex Female 6:15 AM DEPARTMENT OF SOCIOLOGY CHAIR Gender Identity Not on file Sexual Orientation Not on file Last Filed Vital Signs Vital Sign Reading Time Taken Comments Blood Pressure 171/76 08/19/2016 12:08 PM DEPARTMENT OF SOCIOLOGY CHAIR Pulse 78 08/19/2016 8:20 AM DEPARTMENT OF SOCIOLOGY CHAIR Temperature 36.9 C (98.4 F) 08/19/2016 12:08 PM DEPARTMENT OF SOCIOLOGY CHAIR Respiratory Rate 18 08/19/2016 12:08 PM DEPARTMENT OF SOCIOLOGY CHAIR Oxygen Saturation 98% 08/19/2016 12:08 PM DEPARTMENT OF SOCIOLOGY CHAIR Inhaled Oxygen Concentration - - Weight 73.2 [...] yrs (1 - 1-dose 75+ series) 11/01/2011 DEPRESSION SCREENING 08/01/2024 MEDICARE AWV CALENDAR YEAR 2024 COVID-19 VACCINE (1 - 2023-2 5 season) 2025 HEPATITIS B VACCINE Aged Out No longe [...] complete this topic Insurance MANAGED MEDICARE ADV [facility] MANAGED MEDICARE ADV Advance Directives * Full Code (Latest Code Status on File) Date Activated Date Inactivated Comments 08/10/2016 9:42 PM 08/19/2016 5:12 PM * Full Code Date Activated Date Inactivated Comments 08/10/2016 11:31 AM 08/10/2016 9:42 PM Care Teams Dispersion Mixer Relationship Specialty Start Date End Date Molly Fagan MD [address] [place] [id number] PCP - General 09/10/22 Jhon Riley MD [address] [address] General Surgery 06/16/16 Carrol Chun, RN Registered Nurse - Cardiopulmonary Rehab 08/16/16
--- OUTSIDE RECORDS SUMMARY | 2025-05-28 07:48 | XMS_ITS | Encounter Summary ---
Author Organization [facility] Address [address] [facility] [address] [place] [address] Care Team Providers Care Hot Dip Plating Supervisor Name Role Phone Kobi Watkins MD Primary Care Provider [phone] Kobi Watkins MD Primary Care Provider +- [phone] Molly Fagan MD Primary Care Provider Jaye Smiley MD Unavailable [phone] Iliana Evans Primary Care Provide r Encounter Details Date Type Department Care Team (Late st Contact Info) Description 10/19/2016 Orders Only [facility] ProviderGregory MD [address] [place] [address] Social History Tobacco Use Types Packs/Day Years Used Date Smoking Tobacco: Never Alcohol Use Standard Drinks/Week Comments No 0 (1 standard drink = 0.6 oz pur e alcohol) Comments Unknown Sex and Gender Information Value Date Recorded Sex Assigned at Not on file 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 Gender Identity Not on file Sexual [...] filedocumented in this encounter Care Teams Hot Dip Plating Supervisor Relationship Specialty Start Date End Date Kobi Watkins MD PCP - General 10/29/16 05/05/22 Kobi Watkins MD PCP - General 10/12/16 10/28/16 Molly Fagan MD [address] [place] [address] PCP - General Family Medicine 05/06/22 12/16/24 Iliana Evans PA [address] [facility] [address] [place] [address] PCP - General Physician Insulation Worker Interior Surface 12/17/24 Jaye Smiley MD [address] [facility] [address] [place] [address] Referring Physician Nephrology 04/07/23 documented as of this encounter
--- OUTSIDE RECORDS SUMMARY | 2025-05-28 07:48 | XMS_ITS | Encounter Summary ---
Author Organization [facility] Address [address] [facility] [address] [place] [address] Care Team Providers Care Toll Ticket Clerk Name Role Phone Kobi Watkins MD Primary Care Provider +- [phone] Kobi Watkins MD Primary Care Provider + [phone] Kobi Watkins MD Primary Care Provider + [phone] Kobi Watkins MD Primary Care Provider + [phone] Kobi Watkins MD Primary Care Provider + [phone] Kobi Watkins MD Primary Care Provider + [phone] Molly Fagan MD Primary Care Provider Jaye Smiley MD Unavailable [phone] Iliana Evans Primary Care Provide r Encounter Details Date Type Department Care Team (Late st Contact Info) Description 05/21/2014 Orders Only [facility] [address] [place] [address] Scanning, Provider Social History Tobacco Use Types Packs/Day Years Used Date Smoking Tobacco: Never Assessed Comments Unknown Sex and Gender Information Value Date Recorded Sex Assigned at Not on file Legal Sex Female 9:25 AM CENTRIFUGE OPERATOR Gender Identity Not on file Sexual [...] on filedocumented in this encounter Care Teams Toll Ticket Clerk Relationship Specialty Start Date End Date [...] MD [address] [place] [address] PCP - General Family Medicine 05/06/22 12/16/24 Iilana Evans PA [address] [place] [address] PCP - General Physician Desulphuring Operator 12/17/24 Jaye Smiley MD [address] [facility] [address] [place], [place] [address] Referring Physician Nephrology 04/07/23 documented as of this encounter
--- OUTSIDE RECORDS SUMMARY | 2025-05-28 07:48 | XMS_ITS | Encounter Summary ---
Author Organization [facility] Address [address] [facility] [address] [place] [address] Care Team Providers Care Rebeamer Name Role Phone Kobi Watkins MD Primary Care Provider +- [phone] Kobi Watkins MD Primary Care Provider + [phone] Kobi Watkins MD Primary Care Provider + [phone] Kobi Watkins MD Primary Care Provider + [phone] Kobi Watkins MD Primary Care Provider + [phone] Kobi Watkins MD Primary Care Provider + [phone] Molly Fagan MD Primary Care Provider Jaye Smiley MD Unavailable [phone] Iliana Evans Primary Care Provide r Encounter Details Date Type Department Care Team (Late st Contact Info) Description 06/11/2014 Orders Only [facility] Health Information Management [address] [place] [address] Scanning, Provider Social History Tobacco Use Types Packs/Day Years Used Date Smoking Tobacco: Never Assessed Comments Unknown Sex and Gender Information Value Date Recorded Sex Assigned at Not on file Legal Sex Female 9:25 AM CASTINGS DRAFTER Gender Identity Not on file Sexual Orientation [...] on filedocumented in this encounter Care Teams Rebeamer Relationship Specialty Start Date End Date Kobi Watkins MD PCP - General 10/29/16 05/05/22 Kobi Watkins MD PCP - General 10/12/16 10/28/16 Kobi Watkins MD PCP - General 04/21/15 10/11/16 Kobi Watkins MD PCP - General 12/03/14 04/20/15 Kobi Watkins MD PCP - General 10/01/14 12/02/14 Kobi Watkins MD PCP - General 01/30/14 09/30/14 Molly Fagan MD [address] [facility] [address] [place] [address] PCP - General Family Medicine 05/06/22 12/16/24 Iliana Evans PA [address] [place] [address] PCP - General Physician It Risk And Assurance Manager 12/17/24 Jaye Smiley MD [address] [facility] [address] [place] [address] Referring Physician Nephrology 04/07/23 documented as of this encounter
--- OUTSIDE RECORDS SUMMARY | 2025-05-28 07:48 | XMS_ITS | Clinical Summary ---
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 ([facility]) USE TO CHECK BLOOD SUGAR TWICE [...] 04/29/2021 Bradycardia 04/29/2021 Diastolic congestive heart failure 04/29/2021 Chronic diastolic heart failure 04/29/2021 Hyperlipidemia associated with type 2 diabetes m ellitus 03/19/2021 Overview (05/08/2021): Last Assessment & Plan: Lipid checked today Continue Simvastatin Vertigo 02/11/2021 Primary hypertension 02/11/2021 DM type 2 with diabetic peripheral neuropathy Overview (05/08/2021): Last Assessment & Plan: Foot [...] 0 08/10/2016 Perforation of colon 05/02/2015 Overview (05/08/2021): Perforation of colon Anemia due to chronic blood loss 04/21/2015 Overview (05/08/2021): Chronic blood loss anemia Angiodysplasia of colon 04/21/2015 Overview (05/08/2021): AVM (arteriovenous malformation) of colon Resolved Problems Problem Noted Date Diagnosed Date Resolved Date Diabetic nephropathy associa mason with type 1 diabetes mellitus 05/08/2021 06/19/2021 Stage 2 chronic kidney disease 05/08/2021 06/19/2021 Type 1 diabetes mellitus without complication 05/08/20 21 06/19/2021 Type 2 diabetes mellitus wit hout complication, without long-term current use of insulin 02/11/2021 06/19/2021 Hypertension 09/08/2017 12/31/2021 Overview (05/08/2021): Hypertension Last Assessment & Plan: Advised to follow up with PCP for any further balance issues. They can recheck CBC at follow up to r/o sx d/t ELIECER. Diabetes mellitus 09/08/2017 06/19/2021 Overview (05/08/2021): Last Assessment & Plan: Continue with Januvia Immunizations Immunization Administration Dates Next Due Hepatitis A (Generic) 02/10/2000,07/27/1999 Hepatitis A (Havrix 1440 [place].U) 02/10/2000,1998 Pneumococcal (Pneumovax 23) 01/25/2011, 9 Pneumococcal (Prevnar 13) 04/18/2018 Shingrix 01/19/2022,11/10/2021 Td 01/20/2017 Zoster (Zostavax) 42162 Unt/0.65Ml 11/12/2011 Family History Medical History Relation [...] exists Lipid Panel 03/11/2023 03/11/2022, 09/01, 03/19/2021 PHQ-2 (Physician [place]) 08/01/2024 COVID-19 Vaccine ( season) 2025 12/07/2021, 08/03/2021, 02/04/2021, Additional history exists Influenza Adult (#1) 2025 Hepatitis A Vaccines Aged Out 02/10/2000, 02/10/2000, 07/27/1999, Additional history exists No longer eligible based on patient's age to complete this topic Pneumococcal Vaccine: 50+ Years Completed 04/18/2018, 01/25/2011, [...] - 03/12/2022 8:15 AM CDT Performed at: [address] [place] [id number] Nanotechnology Engineering Technologist: Rob Sierra PhD, Phone: [phone] us Kobi Watkins MD LABORATORY Final Resul t [facility] [address] [place] [address] [facility] 1 * (ABNORMAL) LIPID PANEL (03/11/2022 [...] - 03/12/2022 8:15 AM CDT Performed at: - [facility] [address], [place], [place] [id number] Nanotechnology Engineering Technologist: Rob Sierra PhD, Phone: [phone] us Kobi Watkins MD LABORATORY Final Resul t Performing Organization Address City/State/[facility] Co de Phone Number [facility] [address] [place] [address] [facility] 1 from Last 3 Months or Most Recently Relevant to Health Maintenance [place] [place] [address] MEDICARE
--- OUTSIDE RECORDS SUMMARY | 2025-05-28 07:48 | XMS_ITS | Encounter Summary ---
Author Organization [facility] Address [address] [facility] [address] [place] [address] Care Team Providers Care Bun Icer Name Role Phone Kobi Watkins MD Primary Care Provider +- [phone] Kobi Watkins MD Primary Care Provider + [phone] Kobi Watkins MD Primary Care Provider + [phone] Kobi Watkins MD Primary Care Provider + [phone] Kobi Watkins MD Primary Care Provider + [phone] Kobi Watkins MD Primary Care Provider + [phone] Molly Fagan MD Primary Care Provider Jaye Smiley MD Unavailable [phone] Iliana Evans Primary Care Provide r Encounter Details Date Type Department Care Team (Late st Contact Info) Description 04/19/2014 Orders Only [facility] [place] Health Information Management [address] [place] [address] Scanning, Provider Social History Tobacco Use Types Packs/Day Years Used Date Smoking Tobacco: Never Assessed Comments Unknown Sex and Gender Information Value Date Recorded Sex Assigned at Not on file Legal Sex Female 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 INSTRUCTOR Gender Identity Not on file Sexual Orientation [...] on filedocumented in this encounter Care Teams Bun Icer Relationship Specialty Start Date End Date Kobi Watkins MD PCP - General 10/29/16 05/05/22 Kobi Watkins MD PCP - General 10/12/16 10/28/16 Kobi Watkins MD PCP - General 04/21/15 10/11/16 Kobi Watkins MD PCP - General 12/03/14 04/20/15 Kobi Watkins MD PCP - General 10/01/14 12/02/14 Kobi Watkins MD PCP - General 01/30/14 09/30/14 Molly Fagan MD [address] [place] [address] PCP - General Family Medicine 05/06/22 12/16/24 Iliana Evans PA [address] [place] [address] PCP - General Physician Software Test And Validation Engineer 12/17/24 Jaye Smiley MD [address] [facility] [address] [place] [address] Referring Physician Nephrology 04/07/23 documented as of this encounter
--- OUTSIDE RECORDS SUMMARY | 2025-05-28 07:48 | XMS_ITS | Clinical Summary ---
Author Organization [facility] Address [address] [address] Phone Care Team Providers Care Clinical Documentation Specialist Name Role Phone Molly Fagan MD Primary Care Provider [phone] Allergies Active Allergy Reactions Criticality Noted Date [...] 01/19/2022,11/10/2021 Family History Medical History Relation Comments Charles workers' pneumoconiosis Father Heart disease Father Hypertension [...] Comments Blood Pressure 134/76 06/07/2022 10:48 AM VP ANALYTICS Pulse - - Temperature - - Respiratory Rate 18 06/07/2022 10:48 AM VP ANALYTICS Oxygen Saturation - - Inhaled Oxygen Concentration - - Weight 68 kg (150 lb) 06/07/2022 10:48 AM VP ANALYTICS Height 170.2 cm (5' 7) 06/07/2022 10:48 AM VP ANALYTICS Body Mass Index 23.49 06/07/2022 10:48 AM VP ANALYTICS Plan of Treatment Health Maintenance Due Date Last Done Comments Influenza Vaccine (#1) 2025 Pneumococcal PPSV23/PCV13 65 + Years / Low and Medium Risk Completed 04/18/2018, 01/25/2011, 05/01/2009 Insurance [employer] MEDICARE Care Teams Clinical Documentation Specialist Relationship Specialty Start Date End Date Molly Fagan MD [address] [facility] [address] [place] [address] PCP - General Internal Medicine 05/03/22
--- OUTSIDE RECORDS SUMMARY | 2025-05-28 07:48 | XMS_ITS | Encounter Summary ---
Author Organization [facility] Address [address] [facility] [address] [place] [address] Care Team Providers Care Project Control Manager Name Role Phone Kobi Watkins MD Primary Care Provider +- [phone] Kobi Watkins MD Primary Care Provider + [phone] Kobi Watkins MD Primary Care Provider + [phone] Kobi Watkins MD Primary Care Provider + [phone] Kobi Watkins MD Primary Care Provider + [phone] Kobi Watkins MD Primary Care Provider + [phone] Molly Fagan MD Primary Care Provider Jaye Smiley MD Unavailable [phone] Iliana Evans Primary Care Provide r Encounter Details Date Type Department Care Team (Late st Contact Info) Description 08/15/2014 Orders Only [facility] [place] Health Information Management [address] [place] [address] Scanning, Provider Social History Tobacco Use Types Packs/Day Years Used Date Smoking Tobacco: Never Assessed Comments Unknown Sex and Gender Information Value Date Recorded Sex Assigned at Not on file 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
--- OUTSIDE RECORDS SUMMARY | 2025-05-28 07:48 | XMS_ITS | Encounter Summary ---
Author Organization [facility] Address [address] [facility] [address] [place] [address] Care Team Providers Care Cotton Candy Maker Name Role Phone Kobi Watkins MD Primary Care Provider [phone]- [phone] Kobi Watkins MD Primary Care Provider + [phone] Kobi Watkins MD Primary Care Provider + [phone] Kobi Watkins MD Primary Care Provider + [phone] Kobi Watkins MD Primary Care Provider +- [phone] Molly Fagan MD Primary Care Provider Jaye Smiley MD Unavailable [phone] Iliana Evans Primary Care Provide r Encounter Details Date Type Department Care Team (Late st Contact Info) Description 10/25/2014 Orders Only [facility] Health Information Management [address] [place] [address] Scanning, Provider Social History Tobacco Use Types Packs/Day Years Used Date Smoking Tobacco: Never Assessed Comments Unknown Sex and Gender Information Value Date Recorded Sex Assigned at Not on file Legal Sex Female 9: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 CEMENT 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 HELPER Gender Identity Not on file Sexual [...] on filedocumented in this encounter Care Teams Cotton Candy Maker Relationship Specialty Start Date End Date Kobi Watkins MD PCP - General 10/29/16 05/05/22 Kobi Watkins MD PCP - General 10/12/16 10/28/16 Kboi Watkins MD PCP - General 04/21/15 10/11/16 Kobi Watkins MD PCP - General 12/03/14 04/20/15 Kobi Watkins MD PCP - General 10/01/14 12/02/14 Molly Fagan MD [address] [place] [address] PCP - General Family Medicine 05/06/22 12/16/24 Iliana Evans PA [address] [place] [address] PCP - General Physician Feather Drying Machine Operator 12/17/24 Jaye Smiley MD [address] [place] [address] Referring Physician Nephrology 04/07/23 documented as of this encounter
--- OUTSIDE RECORDS SUMMARY | 2025-05-28 07:48 | XMS_ITS | Encounter Summary ---
Author Organization [facility] Address [address] [place] [address] Care Team Providers Care Telemedicine Physician Name Role Phone Kobi Watkins MD Primary Care Provider [phone] Kobi Watkins MD Primary Care Provider +- [phone] Kobi Watkins MD Primary Care Provider + [phone] Kobi Watkins MD Primary Care Provider + [phone] Molly Fagan MD Primary Care Provider Jaye Smiley MD Unavailable [phone] Iliana Evans Primary Care Provide r Encounter Details Date Type Department Care Team (Late st Contact Info) Description 01/21/2015 [place] Only [facility] [place] [facility] [place] [facility] [address] [place] [address] Scanning, Provider Social History Tobacco Use Types Packs/Day Years Used Date Smoking Tobacco: Never Assessed Comments Unknown Sex and Gender Information Value Date Recorded Sex Assigned at Not on file 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 Female 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 Gender Identity Not on file Sexual Orientation [...] on filedocumented in this encounter Care Teams Telemedicine Physician Relationship Specialty Start Date End Date Kobi Watkins MD PCP - General 10/29/16 05/05/22 Kobi Watkins MD PCP - General 10/12/16 10/28/16 Kobi Watkins MD PCP - General 04/21/15 10/11/16 Kobi Watkins MD PCP - General 12/03/14 04/20/15 Molly Fagan MD [address] [place] [address] PCP - General Family Medicine 05/06/22 12/16/24 Iliana Evans PA [address] [place] [address] PCP - General Physician Filler Wiper 12/17/24 Jaye Smliey MD [address] [place] [address] Referring Physician Nephrology 04/07/23 documented as of this encounter
[2025-05-28] MEDS: LACTATED RINGERS 1,000 ML 999 ML IV CONT (07:50)
[2025-05-28] MEDS: MORPHINE SULFATE (*CRX) 4 MG/ML INJ 2 MG IV PUSH (07:51)
[2025-05-28] MEDS: METOPROLOL TARTRATE INJ 5 MG/5 ML VIAL IV PUSH ×2 (08:01→08:30)
[2025-05-28 08:04] LABS: Hematocrit 37.0 % (37.0-47.0); Hemoglobin 11.8 g/dL (12.0-15.0); Immature Granulocyte Percent A 0.5 % (0-0.5); Lymphocytes Absolute Auto 1.72 K/mm3 (0.9-3.2); Mean Corpuscular HGB Conc 31.9 g/dl (32-36); Mean Corpuscular Hemoglobin 32.6 pg (26-34); Mean Corpuscular Volume 102.2 fl (80-100); Nucleated Red Blood Cells Absolute Auto 0.000 K/mm3 (0.0-0.012); Nucleated Red Blood Cells Perc 0.0 % (0.0-0.2); Platelet Count Result 188 k/mm3 (150-375); Red Blood Count 3.62 M/mm3 (4.2-5.4); White Blood Count 5.8 K/mm3 (4.5-10.0)
[2025-05-28 08:17] LABS: INR 1.1; Prothrombin Time 14.2 Seconds (11.1-14.7)
[2025-05-28 08:18] LABS: Partial Thromboplastin Time 30.6 Seconds (22.3-36.8)
[2025-05-28 08:19] LABS: Alanine Aminotransferase 16 U/L (6-35); Albumin Level 4.2 g/dL (3.5-5.1); Alkaline Phosphatase 88 U/L (38-126); Anion Gap 9 mmol/L (4-12); Aspartate Amino Transferase 30 U/L (14-36); Bilirubin,Total 0.4 mg/dL (0.2-1.3); Blood Urea Nitrogen 33 mg/dL (7-17); Calcium 9.3 mg/dL (8.4-10.2); Carbon Dioxide 25 mmol/L (22-30); Chloride 101 mmol/L (98-107); Estimated CRCL calculation 19 ml/min; Estimated Glomerular Filt Rate 27; Glucose 158 mg/dL (65-110); Potassium 4.0 mmol/L (3.4-5.0); Sodium 135 mmol/L (137-145); Total Protein 7.0 g/dL (6.3-8.2)
[2025-05-28 08:33] LABS: NT Pro B Type Natriuretic Pept 15100 pg/mL (19.9-100); Troponin I 0.038 ng/mL (0.000-0.034)
[2025-05-28] MEDS: FUROSEMIDE INJ 40 MG/4 ML VIAL IV PUSH (08:52)
[2025-05-28 09:02] LABS: Magnesium 1.9 mg/dL (1.6-2.3)
[2025-05-28] MEDS: dilTIAZem 100 MG/100 ML 100 MG/100 ML BAG IV CONT (09:08)
--- NOTE | 2025-05-28 09:57 | ECG_ITS ---
Test Date: 2025-05-28 10:01:51 Measurements Intervals [place] Rate: 109 P: 0 MN: 0 QRS: 107 QRSD: 129 T: -18 QT: 344 QTc: 465 Interpretive Statements ATRIAL FIBRILLATION WITH RAPID VENTRICULAR RESPONSE RIGHT AXIS DEVIATION RIGHT BUNDLE BRANCH BLOCK ABNORMAL ECG Compared to ECG 05/28/2025 07:39:45 No significant changes Electronically Signed On 05-28-2025 10:03:15 CDT by Zackery Caldera D.O.
[2025-05-28 10:56] LABS: Troponin I 0.035 ng/mL (0.000-0.034)
--- NOTE | 2025-05-28 12:00 | ADMGEN ---
This patient, Elizabeth Negron, was admitted to IMU Room 213-01. Patient/family oriented to hospital policies and general routines including ID bracelet, bed and alarms, visiting hours, pain management, procedures, bathroom and other care routines, personal items, smoking policy, room service/diet, and visiting hours. Information on how to activate the Rapid Response Team has been discussed. Patient/Family are encouraged to report perceived risks to care and to ask questions if they do not understand what they are told or what they should do.
--- NOTE | 2025-05-28 12:07 | PM.IMHP ---
H&P: HPI History of Present Illness Date/Time: 05/28/25 12:07 Chief Complaint: Back Pain Narrative: 89 y/o F with PMH of AVM, PVD, paroxysmal atrial fibrillation, carotid stenosis, severe pulmonary hypertension, diastolic CHF, type 2 diabetes, CKD, anemia, and hyperlipidemia presents here with shortness of breath. The patient presents here from [facility] via EMS on 05/28 for further evaluation of back/chest pain. She reports onset of back/chest discomfort last night while she was at rest in bed. Pain caused her insomnia. She describes the pain as sharp, radiating from her upper back into her chest, constant, and no modifying factors. Did not take any medications prior to arrival. She reports associated mild shortness of breath, nausea, diaphoresis, congestion, and fatigue. She denies associated fever, chills, cough, or abdominal pain. She arrived to the emergency department with a heart rate in the 140s, telemetry showing AFib with RVR. Patient has history of paroxysmal AFib. She does report she took her morning dose of metoprolol prior to arrival. Initial VS at presentation: 97.5? F, HR 138, R 18, 126/90, and 97% on RA. ED workup showed: No leukocytosis, hemoglobin 11.8, normal coags, creatinine 1.77 and it GFR 27 (1.51 and GFR 27 on 02/15/2025), glucose 158, initial troponin 0.038, BNP 59338. CXR showed small opacities in the mid and lower lungs, greater on the left (atelectasis versus inflammatory versus infectious). Chest CT showed a few reticular, bandlike, and ground-glass opacities in the mid and lower lungs with additional few small patchy consolidations in the left lower lungs and a moderate-sized hiatal hernia. EKG showed AFib with RVR, rate 120, right axis deviation, right bundle branch block. Review of Systems Review of Systems: All systems reviewed & are unremarkable except as noted in HPI and below [facility] Past Medical History Medical History (Updated 05/28/25 @ 13:47 by Kathi Lu APRN) Stage 4 chronic kidney disease Anemia History of blood transfusions. Hiatal hernia with GERD Graham lesion, acute (12/2022) Type 2 diabetes mellitus 6.5% 11/2024 Stenosis of right internal carotid artery 51% stenosis of the proximal right ICA on CTA in December 2021. Peripheral vascular disease Severe pulmonary hypertension Hypertension Acute kidney injury superimposed on CKD AVM (arteriovenous malformation) of colon with hemorrhage Acute on chronic blood loss anemia Hematochezia Paroxysmal atrial fibrillation Coffee ground emesis GI bleed Seborrheic dermatitis Hearing loss, bilateral Encounter for other specified surgical aftercare Diabetic foot infection Trigger finger of both hands Primary osteoarthritis of both knees Aortic valve stenosis [id number] aortic valve stenosis on echocardiogram in April 2021 with a valve area of 1.1 to 1.5 centimeter squared. Closed fracture of left great toe Cellulitis of second toe, right Cellulitis of foot, left Diastolic congestive heart failure Echocardiogram on 12/13/2020 showed normal left ventricular size with moderate consent of left ventricular hypertrophy with overall good left ventricular systolic function with an EF measuring 62%. There was hypokinesis of the basal inferoseptal segment as well as grade 1 diastolic dysfunction with moderately enlarged left atrial chamber and atrial septal aneurysm. 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) Left 5th toe History of toe surgery History of inguinal hernia repair (~2017) History of hysterectomy History of bilateral cataract extraction (~2015) History of rectal polypectomy History of colon resection (~2017) Fracture of right hip requiring operative repair (~2017) History of appendectomy Family History Family History Sibling Carcinoma of colon Father Black lung disease Heart disease Hypertension Mother Hypertension Other Diabetes mellitus Family history of arthritis Family history of gout Family history of heart disease in male family member before age 55 Family history of kidney disease Social History Social History Social History: Patient has been had acute rehab since her arterial stent placement in October 2022. She plans to return to [facility]. She reports that she has been multiple times. She her 2nd twice before he of complications of colon cancer. 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 Lifelong nonsmoker. No alcohol or illicit substance use. She designates her son, Ag Marrero, as her surrogate decision maker and she wishes to be a full code. She had 2 sons Justin and Ag. However, Hal is disabled due to multiple strokes. Code status: Full code Smoking status: Never smoker Second hand tobacco smoke exposure: No Alcohol intake: never Substance use: never Substance use type: does not use Do You Feel Safe in your Home?: Yes Lack of Transportation: No Lack of Food: Never True Current Housing: I Have Housing Concerned About Future Housing: No Difficulty Paying Gas/Electric Bills: No Difficulty Paying for Meds: No Currently Unemployed: No Education: Decline to Answer Difficulty w/ Childcare or Family Care: No Living arrangements: assisted living Occupation/Education: retired Gender identity (if verbalized by the patient): Female Sexual Orientation (if Verbalized by the Patient): Straight or Heterosexual Spiritual care concerns: No Meds Home Medications and Allergies Home Medications ?Medication ?Instructions ?Recorded ?Confirmed ?Type simvastatin 40 mg tablet 40 mg PO HS 12/12/20 05/28/25 History calcium carbonate 600 mg PO BID 04/15/22 05/28/25 History ezetimibe 10 mg tablet 10 mg PO DAILY #90 tabs 04/23/22 05/28/25 Rx furosemide 20 mg tablet 20 mg PO QAM #90 tabs 11/02/22 05/28/25 Rx bisacodyl 10 mg rectal suppository 10 mg RECTAL DAILY PRN Constipation 01/08/23 05/28/25 History cholecalciferol (vitamin D3) 1,250 1,250 mcg PO WEEKLY 01/08/23 05/28/25 History mcg (50,000 unit) capsule acetaminophen 500 mg capsule 500 mg PO Q6H PRN Pain (Scale 04/21/23 05/28/25 History Score 1-3) multivitamin with minerals-folic 1 tablet PO DAILY 04/21/23 05/28/25 History acid 12 mcg chewable tablet (Centrum Adults) metoprolol tartrate 50 mg tablet 50 mg PO Q12H #180 tabs 08/18/23 05/28/25 Rx diaper,brief,adult,disposable #120 ea 10/12/23 05/28/25 Rx (Depend Easy Fit Undergarments misc) glucose 4 gram chewable tablet 4 g PO Q15M PRN hypoglycemia #7 10/12/23 05/28/25 Rx (Dex4 Glucose) tabs magnesium oxide 400 mg PO DAILY 10/24/23 05/28/25 History trazodone 50 mg tablet 50 mg PO QHS #90 tabs 12/01/23 05/28/25 Rx ferrous sulfate 325 mg (65 mg 325 mg PO DAILY #30 tabs 03/22/24 05/28/25 Rx iron) tablet (FeroSul) omeprazole 20 mg capsule,delayed 20 mg PO DAILY #90 caps 05/10/24 05/28/25 Rx release empagliflozin 25 mg tablet 25 mg PO DAILY #90 tabs 06/07/24 05/28/25 Rx (Jardiance) insulin lispro 100 unit/mL See Rx Instructions subcut TID 06/07/24 05/28/25 Rx subcutaneous pen (Humalog KwikPen with meals #15 mL (U-100) Insulin) pen needle, diabetic, safety 30 #100 ea 06/19/24 05/28/25 Rx gauge x 1/3 allopurinol 100 mg tablet 200 mg (2 x 100 mg) PO DAILY #180 12/27/24 05/28/25 Rx tabs blood sugar diagnostic (Contour #100 ea 02/18/25 05/28/25 Rx Next Test Strips) blood-glucose meter (Contour Next #1 ea 02/18/25 05/28/25 Rx Gen Meter kit) fluticasone propionate 50 See Rx Instructions .Route 05/08/25 05/28/25 Rx mcg/actuation nasal .COMPLEX #16 grams spray,suspension tramadol 50 mg tablet 50 mg PO QID #120 tabs 05/09/25 05/28/25 Rx ketoconazole 2 % shampoo 1 applic topical 3XW #120 mL 05/20/25 05/28/25 Rx insulin glargine 100 unit/mL 25 unit subcut HS 05/28/25 05/28/25 History subcutaneous solution (Lantus U-100 Insulin) Allergies Allergy/AdvReac Type Severity Reaction Status Date / Time atorvastatin Allergy Unknown Unknown Verified 05/28/25 12:04 glyburide Allergy Unknown Unknown Verified 05/28/25 12:04 influenza A (H1N1) virus Allergy Unknown Swelling Verified 05/28/25 12:04 vaccine m-jong-split 2009 of Lip/Tongue/Throat Influenza Virus Vaccines Allergy Unknown Swelling Verified 05/28/25 12:04 of Lip/Tongue/Throat phenobarbital AdvReac Mild Hallucinati Verified 05/28/25 12:04 ng Vital Signs Vital Signs - 24 hr 05/28/25 07:32 05/28/25 07:44 05/28/25 08:01 Temperature 97.5 F L Pulse Rate 138 H 140 H Respiratory Rate 18 Blood Pressure Pulse Oximetry 97 99 Oxygen Delivery Room Air Room Air 05/28/25 08:19 05/28/25 08:30 05/28/25 08:31 Temperature Pulse Rate 120 H 125 H 132 H Respiratory Rate 21 H Blood Pressure 126/90 Pulse Oximetry 98 Oxygen Delivery 05/28/25 08:35 05/28/25 08:37 05/28/25 08:40 Temperature Pulse Rate 133 H 127 H 124 H Respiratory Rate 19 19 20 Blood Pressure 131/85 120/81 120/74 Pulse Oximetry 98 98 98 Oxygen Delivery 05/28/25 08:49 05/28/25 09:07 05/28/25 09:08 Temperature Pulse Rate 142 H 121 H 101 H Respiratory Rate 27 H 18 Blood Pressure 112/93 H 108/71 109/56 L Pulse Oximetry 98 97 Oxygen Delivery 05/28/25 09:09 05/28/25 09:16 05/28/25 09:46 Temperature Pulse Rate 97 101 H 100 Respiratory Rate 26 H 22 H 22 H Blood Pressure 109/56 L 102/62 103/53 L Pulse Oximetry 98 98 99 Oxygen Delivery 05/28/25 10:16 05/28/25 11:07 05/28/25 11:23 Temperature Pulse Rate 104 H 99 108 H Respiratory Rate 20 22 H 18 Blood Pressure 91/71 L 91/64 L 106/70 Pulse Oximetry 99 98 96 Oxygen Delivery 05/28/25 11:25 05/28/25 12:00 Temperature Pulse Rate 107 H 113 H Respiratory Rate 14 Blood Pressure 106/70 119/80 Pulse Oximetry 96 Oxygen Delivery Exam Const: General: comfortable and no acute distress Other: , female, elderly, nontoxic appearance HENMT: Face/Nose/Sinus: Normal nares present Mouth: Yes moist mucous membranes Eyes: General: appearance normal, both eyes and all related structures Sclera: sclerae normal Pupils: Equal, round and reactive pupils present EOM: EOMs intact bilaterally Resp: Effort & Inspection: normal respiratory effort Auscultation: clear to auscultation bilaterally Cardio: Rate: tachycardic Rhythm: abnormal rhythm Other: Rhythm/rate consistent with AFib RVR. No murmur appreciated. GI: Other: Abdomen soft, nondistended, nontender. Normoactive bowel sounds in all quadrants. Skin: General skin exam: normal color and no rashes or lesions noted Wounds: no wounds Neuro: Speech: normal speech Motor exam (neuro): 5/5 motor strength present throughout Sensory Exam: normal sensation Other: A&O x4 Extrem: General: normal to inspection Psych: Mental Status: mental status grossly normal Affect: normal affect Other: Good insight and judgment, pleasant H&P: Results Labs Labs: Short CBC 05/28/25 Range/Units 07:58 WBC 5.8 (4.5-10.0) K/mm3 Hgb 11.8 L (12.0-15.0) g/dL Hct 37.0 (37.0-47.0) % Plt Count 188 (150-375) k/mm3 BMP 05/28/25 07:58 Sodium 135 L Potassium 4.0 Chloride 101 Carbon Dioxide 25 BUN 33 H Creatinine 1.77 H Glucose 158 H Calcium 9.3 Cardiac Enzymes 05/28/25 05/28/25 Range/Units 07:58 10:24 Troponin I 0.038 H* 0.035 H* (0.000-0.034) ng/mL Liver Function 05/28/25 Range/Units 07:58 Total Bilirubin 0.4 (0.2-1.3) mg/dL AST 30 (14-36) U/L ALT 16 (6-35) U/L Alkaline Phosphatase 88 (38-126) U/L Albumin 4.2 (3.5-5.1) g/dL Assessment and Plan Assessment and plan (1) Paroxysmal atrial fibrillation: Code(s): I48.0 - Paroxysmal atrial fibrillation Status: Acute Assessment and Plan: Patient presented to the emergency department with a heart rate in the 140s, telemetry/EKG showed atrial fibrillation RVR. Initially given metoprolol 5 mg IV x2 without improvement. Subsequently started on Cardizem with IV push x1. Patient's heart rate now consistently 110-115. Patient reporting subjective improvement in shortness of breath since reduction in heart rate. She continues to have some upper back pain that improves with massage but no complaints of chest discomfort. -continue diltiazem gtt, give 2nd dose of IV push -hold home metoprolol, on 50 mg b.i.d. at home -cardiology consulted -troponin mildly elevated but flat, see below -update echo and TSH -telemetry monitoring (2) Pneumonia: Qualifiers: Pneumonia type: due to unspecified organism Laterality: bilateral Lung location: unspecified part of lung Qualified Code(s): J18.9 - Pneumonia, unspecified organism Code(s): J18.9 - Pneumonia, unspecified organism Status: Acute Assessment and Plan: Patient reporting congestion. CXR and CT concerning for inflammatory/infectious process. No leukocytosis. However continues to have some upper back pain despite reduction in heart rate. Has had some improvement in shortness of breath with reduction in heart rate, however still experiencing some mild dyspnea. -check viral PCR -started on ceftriaxone and doxycycline on 05/28 -supportive care: Mucinex, Tylenol, Tessalon Perles -encourage IS (3) Elevated troponin: Code(s): R79.89 - Other specified abnormal findings of blood chemistry Status: Acute Assessment and Plan: Initially reporting mild chest discomfort and upper back discomfort that was accompanied by shortness of breath. Chest discomfort and shortness of breath improved with reduction in heart rate, found to be in AFib RVR. Continues to have some upper back pain, however this improves with massage decreasing concerns for ACS. Troponin thus far mildly elevated but flat. Continue to trend. Higher suspicion chest/back discomfort related to AFib RVR and possible pneumonia. -nitro SL p.r.n. -trend troponins -on telemetry monitoring (4) CHF (congestive heart failure): Qualifiers: Heart failure chronicity: acute on chronic Heart failure type: right-sided Qualified Code(s): I50.813 - Acute on chronic right heart failure Code(s): I50.9 - Heart failure, unspecified Status: Acute Assessment and Plan: BNP elevated. However no evidence of volume overload on imaging or clinical exam. Given 40 of Lasix IV in the ED. Will continue patient on her home dose of Lasix, 20 mg daily. -update echo -reviewed previous echo (11/2022): The LV systolic function hyperdynamic, estimated EF greater than 70%, LA chamber moderately enlarged, mild aortic valve stenosis, mild AV calcification, AV trileaflet, mild to moderate MV regurgitation, no pulmonary hypertension, mild TV regurgitation. -monitor I&Os and daily weights (5) Stage 4 chronic kidney disease: Code(s): N18.4 - Chronic kidney disease, stage 4 (severe) Status: Acute Assessment and Plan: Creatinine 1.77, BUN 33, GFR 27 upon admission on 04/10/2028. Reviewed previous lab work, range in 2023 was highly variable. Patient had values between 0.9 and 2.1. More recently 1.4-1.5. History of CKD stage 4. 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 Initial glucose 158, stable. - hypoglycemia protocol - POC blood glucose ACHS - home medication: Continue Lantus 25 units HS, pharmacist to adjust. Hold on sliding scale. Continue Jardiance. - correct regimen ordered - low/high dose TIDWM - A1C 6.5% on 12/17/2024 (7) Anemia: Qualifiers: Anemia type: unspecified type Qualified Code(s): D64.9 - Anemia, unspecified Code(s): D64.9 - Anemia, unspecified Status: Acute Assessment and Plan: Hemoglobin 11.8 upon admission, previously ranged between 11 and 13. -transfuse if less than 7 -monitor (8) HTN (hypertension): Qualifiers: Hypertension type: essential hypertension Qualified Code(s): I10 - Essential (primary) hypertension Code(s): I10 - Essential (primary) hypertension Status: Chronic Assessment and Plan: -chronic, currently 119/80, stable. -hold home metoprolol, currently on diltiazem drip -monitor (9) Hyperlipidemia: Qualifiers: Hyperlipidemia type: unspecified Qualified Code(s): E78.5 - Hyperlipidemia, unspecified Code(s): E78.5 - Hyperlipidemia, unspecified Status: Chronic Assessment and Plan: -continue simvastatin 40 mg HS Plan Diet: Heart healthy GI Prophylaxis: n/a DVT Prophylaxis: Lovenox SQ IV fluids: None Lines/Tubes: Peripheral IV Code Status: Full code Quality VTE Prophylaxis VTE prophylaxis: pharmacologic ordered Hospitalist MIPS Advance Care Plan I have confirmed that the patient's Advanced Care Plan is present, code status is documented, or surrogate decision maker is listed in patient medical record.: Yes Medication Reconciliation I have utilized all available resources to obtain, update and review the patients current medications (includes all prescriptions, OTC, herbals, cannabis, and nutritional supplements).: Yes
[2025-05-28 13:53] LABS: Troponin I 0.038 ng/mL (0.000-0.034)
--- NOTE | 2025-05-28 14:35 | PM.CNCAR ---
Assessment and Plan Assessment and plan (1) Paroxysmal atrial fibrillation: Code(s): I48.0 - Paroxysmal atrial fibrillation Status: Acute Assessment and Plan: Patient presents in afib with RVR. She is symptomatic with associated chest pain and shortness of breath on last noted EKG was in NSR, but appears she has had afib in the past Has been started on IV cardizem and goal will be rate control for this patient at this time Her electrolytes are stable at this time with a potassium of 4 and Mag of 1.9 Will check TSH. will begin lovenox therapeutic of 1mg/kg daily as renal function allows was not on AC at home, patient denies any falls in >6 months and no reported bleeding history, however, on further chart review she had bleeding AVM in 2022, will monitor with lovenox, but will need to weigh risk/benefit of long-term AC over hospital course. (2) Elevated troponin: Code(s): R79.89 - Other specified abnormal findings of blood chemistry Status: Acute Assessment and Plan: patient noted to have flat minimal troponin elevation of 0.038, 0.035, 0.038 this most likely represents demand ischemia in the setting of afib with rvr EKG with no acute ST/T wave changes last echo demonstrated EF of 70% Will update echo to look for any LV dysfunction or wall motion abnormality no plans for any invasive w/u Continue zetia 10 mg daily (3) Aortic valve stenosis: Code(s): I35.0 - Nonrheumatic aortic (valve) stenosis Status: Acute Assessment and Plan: with only mild and LAURENT of 1.4cm2 on last echo in 2022 will repeat echo (4) Diastolic congestive heart failure: Code(s): I50.30 - Unspecified diastolic (congestive) heart failure Status: Acute Assessment and Plan: acute on chronic diastolic CHF this is in the setting of afib with rvr her pBNP was elevated at 15,1000 she was given a dose of IV lasix in the ER she appears better compensated at this time. continue her home PO lasix of 20 mg daily and jardiance 25 mg daily (5) Benign hypertension with chronic kidney disease: Code(s): I12.9 - Hypertensive chronic kidney disease with stage 1 through stage 4 chronic kidney disease, or unspecified chronic kidney disease Status: Acute Assessment and Plan: blood pressure with reasonable control at this time monitor for drops in BP with the addition of IV cardizem Her Cr is currently 1.7. monitor with diruesis (6) Hyperlipidemia: Qualifiers: Hyperlipidemia type: unspecified Qualified Code(s): E78.5 - Hyperlipidemia, unspecified Code(s): E78.5 - Hyperlipidemia, unspecified Status: Chronic Assessment and Plan: currently on simvastatin 40 mg daily and zetia 10 mg daily (7) Pneumonia: Qualifiers: Laterality: bilateral Lung location: unspecified part of lung Pneumonia type: due to unspecified organism Qualified Code(s): J18.9 - Pneumonia, unspecified organism Code(s): J18.9 - Pneumonia, unspecified organism Status: Acute Assessment and Plan: nebs and antibiotics as per primary team History of Present Illness History of Present Illness Consult date/time: 05/28/25 14:35 Requesting physician: Kathi Lu APRN Consult reason: atrial fibrillation Reason For Visit: elevated troponin,afib with rvr Narrative: Elizabeth Negron is an 89 y.o. female with a PMH of CHF, pafib, aortic stenosis, CKD, gout and DM who presented to the ER with c/of palpitations. She reports last night she was lying in bed trying to sleep. She began having a pain in the left side of her chest and into her back. The pain felt like a fluttering and would not stop. She noted associated nausea, dizziness and diaphoresis. She finally decided to come to the ER. She states prior to last night she had been feeling increasingly fatigued, but otherwise at baseline. In the ER she was found to have pneumonia and was noted to be atrial fibrillation with RVR for which we were consulted. She was started on IV cardizem drip for rate control. Review of Systems Constitutional: Constitutional: Denies chills, Reports fatigue and Denies weakness Cardiovascular: Cardiovascular: Reports chest pain and Reports palpitations Respiratory: Respiratory: Reports dyspnea Comments: Psychiatric: Psychiatric: Reports no additional psychiatric complaints [facility] Past Medical History Medical History (Updated 05/28/25 @ 13:47 by Ktahi Lu APRN) Stage 4 chronic kidney disease Anemia History of blood transfusions. Hiatal hernia with GERD Graham lesion, acute (12/2022) Type 2 diabetes mellitus 6.5% 11/2024 Stenosis of right internal carotid artery 51% stenosis of the proximal right ICA on CTA in December 2021. Peripheral vascular disease Severe pulmonary hypertension Hypertension Acute kidney injury superimposed on CKD AVM (arteriovenous malformation) of colon with hemorrhage Acute on chronic blood loss anemia Hematochezia Paroxysmal atrial fibrillation Coffee ground emesis GI bleed Seborrheic dermatitis Hearing loss, bilateral Encounter for other specified surgical aftercare Diabetic foot infection Trigger finger of both hands Primary osteoarthritis of both knees Aortic valve stenosis [id number] aortic valve stenosis on echocardiogram in April 2021 with a valve area of 1.1 to 1.5 centimeter squared. Closed fracture of left great toe Cellulitis of second toe, right Cellulitis of foot, left Diastolic congestive heart failure Echocardiogram on 12/13/2020 showed normal left ventricular size with moderate consent of left ventricular hypertrophy with overall good left ventricular systolic function with an EF measuring 62%. There was hypokinesis of the basal inferoseptal segment as well as grade 1 diastolic dysfunction with moderately enlarged left atrial chamber and atrial septal aneurysm. 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) Left 5th toe History of toe surgery History of inguinal hernia repair (~2017) History of hysterectomy History of bilateral cataract extraction (~2015) History of rectal polypectomy History of colon resection (~2017) Fracture of right hip requiring operative repair (~2017) History of appendectomy Family History Family History Sibling Carcinoma of colon Father Black lung disease Heart disease Hypertension Mother Hypertension Other Diabetes mellitus Family history of arthritis Family history of gout Family history of heart disease in male family member before age 55 Family history of kidney disease Social History Social History Social History: Patient has been had acute rehab since her arterial stent placement in October 2022. She plans to return to [facility]. She reports that she has been multiple times. She her 2nd twice before he of complications of colon cancer. 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 Lifelong nonsmoker. No alcohol or illicit substance use. She designates her son, Ag Marrero, as her surrogate decision maker and she wishes to be a full code. She had 2 sons Justin and Ag. However, Hal is disabled due to multiple strokes. Code status: Full code Smoking status: Never smoker Second hand tobacco smoke exposure: No Alcohol intake: never Substance use: never Substance use type: does not use Do You Feel Safe in your Home?: Yes Lack of Transportation: No Lack of Food: Never True Current Housing: I Have Housing Concerned About Future Housing: No Difficulty Paying Gas/Electric Bills: No Difficulty Paying for Meds: No Currently Unemployed: No Education: Decline to Answer Difficulty w/ Childcare or Family Care: No Living arrangements: assisted living Occupation/Education: retired Gender identity (if verbalized by the patient): Female Sexual Orientation (if Verbalized by the Patient): Straight or Heterosexual Spiritual care concerns: No Meds Home Medications and Allergies Home Medications ?Medication ?Instructions ?Recorded ?Confirmed ?Type simvastatin 40 mg tablet 40 mg PO HS 12/12/20 05/28/25 History calcium carbonate 600 mg PO BID 04/15/22 05/28/25 History ezetimibe 10 mg tablet 10 mg PO DAILY #90 tabs 04/23/22 05/28/25 Rx furosemide 20 mg tablet 20 mg PO QAM #90 tabs 11/02/22 05/28/25 Rx bisacodyl 10 mg rectal suppository 10 mg RECTAL DAILY PRN Constipation 01/08/23 05/28/25 History cholecalciferol (vitamin D3) 1,250 1,250 mcg PO WEEKLY 01/08/23 05/28/25 History mcg (50,000 unit) capsule acetaminophen 500 mg capsule 500 mg PO Q6H PRN Pain (Scale 04/21/23 05/28/25 History Score 1-3) multivitamin with minerals-folic 1 tablet PO DAILY 04/21/23 05/28/25 History acid 12 mcg chewable tablet (Centrum Adults) metoprolol tartrate 50 mg tablet 50 mg PO Q12H #180 tabs 08/18/23 05/28/25 Rx diaper,brief,adult,disposable #120 ea 10/12/23 05/28/25 Rx (Depend Easy Fit Undergarments misc) glucose 4 gram chewable tablet 4 g PO Q15M PRN hypoglycemia #7 10/12/23 05/28/25 Rx (Dex4 Glucose) tabs magnesium oxide 400 mg PO DAILY 10/24/23 05/28/25 History trazodone 50 mg tablet 50 mg PO QHS #90 tabs 12/01/23 05/28/25 Rx ferrous sulfate 325 mg (65 mg 325 mg PO DAILY #30 tabs 03/22/24 05/28/25 Rx iron) tablet (FeroSul) omeprazole 20 mg capsule,delayed 20 mg PO DAILY #90 caps 05/10/24 05/28/25 Rx release empagliflozin 25 mg tablet 25 mg PO DAILY #90 tabs 06/07/24 05/28/25 Rx (Jardiance) insulin lispro 100 unit/mL See Rx Instructions subcut TID 06/07/24 05/28/25 Rx subcutaneous pen (Humalog KwikPen with meals #15 mL (U-100) Insulin) pen needle, diabetic, safety 30 #100 ea 06/19/24 05/28/25 Rx gauge x 1/3 allopurinol 100 mg tablet 200 mg (2 x 100 mg) PO DAILY #180 12/27/24 05/28/25 Rx tabs blood sugar diagnostic (Contour #100 ea 02/18/25 05/28/25 Rx Next Test Strips) blood-glucose meter (Contour Next #1 ea 02/18/25 05/28/25 Rx Gen Meter kit) fluticasone propionate 50 See Rx Instructions .Route 05/08/25 05/28/25 Rx mcg/actuation nasal .COMPLEX #16 grams spray,suspension tramadol 50 mg tablet 50 mg PO QID #120 tabs 05/09/25 05/28/25 Rx ketoconazole 2 % shampoo 1 applic topical 3XW #120 mL 05/20/25 05/28/25 Rx insulin glargine 100 unit/mL 25 unit subcut HS 05/28/25 05/28/25 History subcutaneous solution (Lantus U-100 Insulin) Allergies Allergy/AdvReac Type Severity Reaction Status Date / Time atorvastatin Allergy Unknown Unknown Verified 05/28/25 12:04 glyburide Allergy Unknown Unknown Verified 05/28/25 12:04 influenza A (H1N1) virus Allergy Unknown Swelling Verified 05/28/25 12:04 vaccine m-jong-split 2009 of Lip/Tongue/Throat Influenza Virus Vaccines Allergy Unknown Swelling Verified 05/28/25 12:04 of Lip/Tongue/Throat phenobarbital AdvReac Mild Hallucinati Verified 05/28/25 12:04 ng Vital Signs Vital Signs - 24 hr 05/28/25 07:32 05/28/25 07:44 05/28/25 08:01 Temperature 36.4 C L Pulse Rate 138 H 140 H Respiratory Rate 18 Blood Pressure Pulse Oximetry 97 99 Oxygen Delivery Room Air Room Air 05/28/25 08:19 05/28/25 08:30 05/28/25 08:31 Temperature Pulse Rate 120 H 125 H 132 H Respiratory Rate 21 H Blood Pressure 126/90 Pulse Oximetry 98 Oxygen Delivery 05/28/25 08:35 05/28/25 08:37 05/28/25 08:40 Temperature Pulse Rate 133 H 127 H 124 H Respiratory Rate 19 19 20 Blood Pressure 131/85 120/81 120/74 Pulse Oximetry 98 98 98 Oxygen Delivery 05/28/25 08:49 05/28/25 09:07 05/28/25 09:08 Temperature Pulse Rate 142 H 121 H 101 H Respiratory Rate 27 H 18 Blood Pressure 112/93 H 108/71 109/56 L Pulse Oximetry 98 97 Oxygen Delivery 05/28/25 09:09 05/28/25 09:16 05/28/25 09:46 Temperature Pulse Rate 97 101 H 100 Respiratory Rate 26 H 22 H 22 H Blood Pressure 109/56 L 102/62 103/53 L Pulse Oximetry 98 98 99 Oxygen Delivery 05/28/25 10:16 05/28/25 11:07 05/28/25 11:23 Temperature Pulse Rate 104 H 99 108 H Respiratory Rate 20 22 H 18 Blood Pressure 91/71 L 91/64 L 106/70 Pulse Oximetry 99 98 96 Oxygen Delivery 05/28/25 11:25 05/28/25 12:00 05/28/25 12:00 Temperature Pulse Rate 107 H 113 H 110 H Respiratory Rate 14 Blood Pressure 106/70 Pulse Oximetry 96 Oxygen Delivery Room Air 05/28/25 12:00 05/28/25 12:17 Temperature Pulse Rate 113 H 110 H Respiratory Rate 14 Blood Pressure 119/80 119/80 Pulse Oximetry 96 Oxygen Delivery Exam Const: General: comfortable and no acute distress Eyes: General: appearance normal, both eyes and all related structures Neck: Neck: supple and No no JVD Resp: Effort & Inspection: normal respiratory effort Auscultation: clear to auscultation bilaterally Cardio: Rate: tachycardic Rhythm: abnormal rhythm Other: irreg irreg Skin: General skin exam: normal color and no rashes or lesions noted Neuro: Speech: normal speech Extrem: General: normal to inspection and no edema Psych: Mental Status: mental status grossly normal Results Labs and Meds 05/28/25 07:58 05/28/25 07:58 Lab results: Cardiac Enzymes 05/28/25 05/28/25 05/28/25 Range/Units 07:58 10:24 13:20 AST 30 (14-36) U/L Troponin I 0.038 H* 0.035 H* 0.038 H* (0.000-0.034) ng/mL Coagulation 05/28/25 Range/Units 07:58 PT 14.2 (11.1-14.7) Seconds APTT 30.6 (22.3-36.8) Seconds CBC 05/28/25 Range/Units 07:58 WBC 5.8 (4.5-10.0) K/mm3 RBC 3.62 L (4.2-5.4) M/mm3 Hgb 11.8 L (12.0-15.0) g/dL Hct 37.0 (37.0-47.0) % Plt Count 188 (150-375) k/mm3 Lymph # (Auto) 1.72 (0.9-3.2) K/mm3 [place] # (Auto) 0.4 (0.1-0.6) K/mm3 Eos # (Auto) 0.2 (0-0.3) K/mm3 Baso # (Auto) 0.0 (0.0-0.1) K/mm3 Comprehensive Metabolic Panel 05/28/25 Range/Units 07:58 Sodium 135 L (137-145) mmol/L Potassium 4.0 (3.4-5.0) mmol/L Chloride 101 (98-107) mmol/L Carbon Dioxide 25 (22-30) mmol/L BUN 33 H (7-17) mg/dL Creatinine 1.77 H (0.7-1.0) mg/dL Glucose 158 H (65-110) mg/dL Calcium 9.3 (8.4-10.2) mg/dL AST 30 (14-36) U/L ALT 16 (6-35) U/L Alkaline Phosphatase 88 (38-126) U/L Total Protein 7.0 (6.3-8.2) g/dL Albumin 4.2 (3.5-5.1) g/dL Intake and Output 05/27/25 05/28/25 05/28/25 23:59 07:59 15:59 Intake Total 1017.9 Output Total 50 Balance 967.9 Intake: IV 1017.9 Lactated Ringers 1,000 ml @ 999 1000 mls/hr IV CONT .Q1H1M STA Rx#: [id number] dilTIAZem 100 MG/100 ML 100 mg 17.9 In 100 ml @ 5 MG/HR 5 mls/hr IV CONT .Q20H STA Rx#:[id number] Output: Catheter Urine 50 External/Condom 50 Patient Weight 05/28/25 23:59 Weight 63.2 kg Imaging and Cardiology Echo: report reviewed (Echo 11/2022 showed EF of 70% with mild , LAURENT of 1.4 cm2, mild to moderate MR And mild TR ) EKG results: image reviewed EKG Interpretation EKG shows: atrial fibrillation (with RBBB rate of [address]/T wave changes. )
[2025-05-28] MEDS: traMADol HCL (*CRX) 50 MG TABLET PO ×3 (14:36→20:56)
[2025-05-28] MEDS: ERGOCALCIFEROL (VITAMIN D2) 1,250 MCG (50,000 UNITS) CAPSULE 1250 MCG PO (14:36)
[2025-05-28] MEDS: AZITHROMYCIN IV 500 MG in SODIUM CHLORIDE 0.9% IV 250 ML IVPB (16:30)
[2025-05-28] MEDS: DOXYCYCLINE IV 100 MG in SODIUM CHLORIDE 0.9% IV 100 ML IVPB (17:30)
[2025-05-28] MEDS: ENOXAPARIN 60 MG/0.6 ML SYRINGE SUB-Q (17:56)
[2025-05-28] MEDS: CALCIUM CARBONATE (OSCAL) 500 MG TABLET PO (17:56)
[2025-05-28] MEDS: INSULIN ASPART (*BKC) 100 UNITS/ML SUB-Q (17:57)
[2025-05-28] MEDS: FLUTICASONE PROPIONATE 0.05% NA SPR 16 GM BTL (*BKC) 1 SPRAY NASAL ×2 (17:58→20:58)
[2025-05-28 20:02] LABS: Influenza A QL RT-PCR Negative (Negative); Influenza B QL RT-PCR Negative (Negative); RSV RNA, RT-PCR Negative (Negative); SARS-CoV-2 RNA PCR Negative (Negative)
[2025-05-28] MEDS: SIMVASTATIN 20 MG TABLET 40 MG PO (20:56)
[2025-05-28] MEDS: guaiFENesin 12 HR 600 MG TABCR PO (20:56)
[2025-05-28] MEDS: INSULIN GLARGINE (*BKC) 100 UNITS/ML 20 UNITS SUB-Q (20:57)
[2025-05-28] MEDS: dilTIAZem 100 MG/100 ML 100 MG/100 ML BAG 7.5 MG IV CONT (20:59)
[2025-05-29] VITALS (26 sets, daily range): BP systolic 100–135; BP diastolic 57–84; PULSE 70–137; RESP 14–20; TEMP 36.4–36.9; O2SAT 92–100
--- NOTE | 2025-05-29 | ECHO_ITS ---
Patient Info Name: Elizabeth Negron Age: 89 years : 1935 Gender: Female Ht: 67 in Wt: 141 lbs BSA: 1.74 m2 HR: 126 bpm BP: 124 / 64 mmHg Heart Rhythm: Atrial Fibrillation Technical Quality: Good Exam Date: 05/29/2025 9:07 AM Patient Status: I Admit Date: 05/28/2025 Exam Type: CA echo doppler color flow Complete two-dimensional, color flow and Doppler transthoracic echocardiogram is performed. Staff Referring Physician: Michael Ashraf Merchandise Examiner: Estelle Abraham Attending Provider: Joni Mckeon MD Summary 1. Complete two-dimensional, color flow and Doppler transthoracic echocardiogram is performed. 2. Normal left ventricular size and systolic function ejection fraction visually estimated at 65%. 3. Normal right ventricle. 4. Dilated left atrium. 5. Moderate mitral and tricuspid regurgitation. 6. Mild aortic regurgitation. 7. Trivial pulmonic regurgitation. 8. Atrial fibrillation. Left Ventricle Left ventricular systolic function is normal, estimated at 60-65. The left ventricular diastolic function is indeterminate. Right Ventricle Right ventricular chamber dimension is normal. Left Atria Left atrial chamber dimension is moderately enlarged. Right Atria Right atrial chamber dimension is normal. Aortic Valve The aortic valve is trileaflet. There is mild aortic valve sclerosis. There is mild to moderate aortic valve regurgitation. Pulmonic Valve The pulmonic valve is normal. There is trace pulmonic regurgitation. Mitral Valve The mitral valve has normal leaflets. There is moderate mitral valve regurgitation. Tricuspid Valve The tricuspid valve leaflets are normal. There is moderate tricuspid valve regurgitation. Pericardium/Pleural The pericardium appears normal. Aorta The aortic root size at the sinus of Valsalva is normal. Left Ventricular Outflow Tract Name Value Normal LVOT 2D LVOT Diameter 2.0 cm LVOT Doppler LVOT Peak Velocity 101 cm/s LVOT Peak Gradient 3 mmHg LVOT Mean Gradient 2 mmHg LVOT VTI 22 cm LVOT VTI/AV VTI Ratio 0.4 LVOT Stroke Volume 71 ml LVOT CO 8.1 l/min LVOT CI 4.7 l/min/m2 Pulmonic Valve Name Value Normal RVOT Doppler RVOT Peak Velocity 89 cm/s RVOT Peak Gradient 3 mmHg PV Doppler PV Peak Velocity 106 cm/s PV Peak Gradient 4 mmHg Mitral Valve Name Value Normal MV Diastolic Function MV E Peak Velocity 143 cm/s MV A Peak Velocity 71 cm/s MV E/A 2.0 MV Decel Time (PW) 80 ms MV Annular TDI MV E/e' (Septal) 29.9 MV E/e' (Lateral) 13.0 MV E/e' (Average) 21.5 Tricuspid Valve Name Value Normal TV Regurgitation Doppler TR Peak Velocity 439 cm/s TR Peak Gradient 77 mmHg Aortic Valve Name Value Normal AV Doppler AV Peak Velocity 257 cm/s AV Peak Gradient 16 mmHg AV Mean Gradient 10 mmHg AV VTI 53 cm AV Area (Cont Eq VTI) 1.3 cm2 >=3.0 AV Area (Cont Eq Arcenio) 1.2 cm2 AV DI (Arcenio) 0.39 AV Regurgitation 2D LVOT Area 3.2 cm2 Ventricles Name Value Normal LV Dimensions 2D/MM IVS Diastolic Thickness (2D) 0.9 cm 0.6-1.0 LVID Diastole (2D) 3.9 cm 3.8-5.2 LVIW Diastolic Thickness (2D) 1.2 cm 0.6-0.9 LVID Systole (2D) 3.1 cm 2.2-3.5 LVOT Diameter 2.0 cm LV Mass (2D Cubed) 137.28 g 67.00-162.00 LV Mass Index (2D Cubed) 79 g/m2 43-95 Relative Wall Thickness (2D) 0.64 <=0.42 LV Fractional Shortening/Ejection Fraction 2D/MM LV Fractional Shortening (2D) 21 % 27-45 LV EF (2D Teichholz) 44 % LV Diastolic Volume (4C MOD) 69 ml LV EF (4C MOD) 53 % LV Diastolic Volume (2C MOD) 87 ml LV EF (2C MOD) 63 % LV Diastolic Volume (BP MOD) 78 ml 46-106 LV Diastolic Volume Index (BP MOD) 45 ml/m2 29-61 LV Systolic Volume (BP MOD) 33 ml 14-42 LV Systolic Volume Index (BP MOD) 19 ml/m2 8-24 LV EF (BP MOD) 57 % 54-74 LV Diastolic Length (4C) 7.7 cm LV Systolic Length (4C) 7.0 cm LV Stroke Volume (4C MOD) 36 ml Atria Name Value Normal LA Dimensions LA Volume (4C A-L) 66 ml LA Volume (BP A-L) 80 ml RA Dimensions RA Systolic Major [place] Length (4C) 5.5 cm 2.2-2.8 RA Area (4C) 18.1 cm2 <=18.0 Report Signatures
[2025-05-29 04:14] LABS: Hematocrit 37.1 % (37.0-47.0); Hemoglobin 11.9 g/dL (12.0-15.0); Immature Granulocyte Percent A 0.3 % (0-0.5); Lymphocytes Absolute Auto 1.70 K/mm3 (0.9-3.2); Mean Corpuscular HGB Conc 32.1 g/dl (32-36); Mean Corpuscular Hemoglobin 32.7 pg (26-34); Mean Corpuscular Volume 101.9 fl (80-100); Nucleated Red Blood Cells Absolute Auto 0.000 K/mm3 (0.0-0.012); Nucleated Red Blood Cells Perc 0.0 % (0.0-0.2); Platelet Count Result 181 k/mm3 (150-375); Red Blood Count 3.64 M/mm3 (4.2-5.4); White Blood Count 6.4 K/mm3 (4.5-10.0)
[2025-05-29 04:31] LABS: Anion Gap 8 mmol/L (4-12); Blood Urea Nitrogen 37 mg/dL (7-17); Calcium 9.0 mg/dL (8.4-10.2); Carbon Dioxide 27 mmol/L (22-30); Chloride 98 mmol/L (98-107); Estimated CRCL calculation 18 ml/min; Estimated Glomerular Filt Rate 25; Glucose 143 mg/dL (65-110); Potassium 4.0 mmol/L (3.4-5.0); Sodium 133 mmol/L (137-145)
[2025-05-29 05:03] LABS: Thyroid Stimulating Hormone Reflex 1.540 uIU/mL (0.465-4.68)
[2025-05-29] MEDS: DOXYCYCLINE IV 100 MG in SODIUM CHLORIDE 0.9% IV 100 ML IVPB ×2 (08:32→21:13)
[2025-05-29] MEDS: MAGNESIUM OXIDE 400 MG TABLET PO (08:33)
[2025-05-29] MEDS: PANTOPRAZOLE 40 MG TABLET PO (08:33)
[2025-05-29] MEDS: FERROUS SULFATE 325 MG TABLET PO (08:33)
[2025-05-29] MEDS: guaiFENesin 12 HR 600 MG TABCR PO ×2 (08:33→21:12)
[2025-05-29] MEDS: traMADol HCL (*CRX) 50 MG TABLET PO ×4 (08:34→21:12)
[2025-05-29] MEDS: CALCIUM CARBONATE (OSCAL) 500 MG TABLET PO ×2 (08:34→16:52)
[2025-05-29] MEDS: AZITHROMYCIN IV 500 MG in SODIUM CHLORIDE 0.9% IV 250 ML IVPB (08:35)
[2025-05-29] MEDS: EZETIMIBE 10 MG TABLET PO (08:35)
[2025-05-29] MEDS: EMPAGLIFLOZIN 25 MG TABLET PO (08:35)
[2025-05-29] MEDS: FLUTICASONE PROPIONATE 0.05% NA SPR 16 GM BTL (*BKC) 1 SPRAY NASAL ×2 (08:35→21:14)
[2025-05-29] MEDS: FUROSEMIDE 20 MG TABLET PO (08:35)
[2025-05-29] MEDS: LIDOCAINE 5% PATCH 1 PATCH TRANSDERM (08:37)
[2025-05-29] MEDS: dilTIAZem 100 MG/100 ML 100 MG/100 ML BAG 7.5 MG IV CONT (08:44)
--- NOTE | 2025-05-29 08:55 | PM.PNCARD ---
Progress Note: A&P Assessment and Plan (1) Paroxysmal atrial fibrillation: Code(s): I48.0 - Paroxysmal atrial fibrillation Status: Acute Assessment and Plan: Patient presents in afib with RVR. She is symptomatic with associated chest pain and shortness of breath on last noted EKG was in NSR, but appears she has had afib in the past Has been started on IV cardizem but rate remains uncontrolled and patient symptomatic. Will transition to IV amiodarone for hopeful converesion to NSR. Her electrolytes are stable at this time with a potassium of 4 and Mag of 1.9 Her TSH was wnl will begin lovenox therapeutic of 1mg/kg daily as renal function allows was not on AC at home, patient denies any falls in >6 months and no reported bleeding history, however, on further chart review she had bleeding AVM in 2022, will monitor with lovenox, but will need to weigh risk/benefit of long-term AC over hospital course. Will need eliquis 2.5 mg BID (2) Elevated troponin: Code(s): R79.89 - Other specified abnormal findings of blood chemistry Status: Acute Assessment and Plan: patient noted to have flat minimal troponin elevation of 0.038, 0.035, 0.038 this most likely represents demand ischemia in the setting of afib with rvr EKG with no acute ST/T wave changes last echo demonstrated EF of 70% repeat echo to look for any LV dysfunction or wall motion abnormality is pending no plans for any invasive w/u Continue zetia 10 mg daily (3) Aortic valve stenosis: Code(s): I35.0 - Nonrheumatic aortic (valve) stenosis Status: Acute Assessment and Plan: with only mild and LAURENT of 1.4cm2 on last echo in 2022 will repeat echo (pending) (4) Diastolic congestive heart failure: Code(s): I50.30 - Unspecified diastolic (congestive) heart failure Status: Acute Assessment and Plan: acute on chronic diastolic CHF this is in the setting of afib with rvr her pBNP was elevated at 15,1000 she was given a dose of IV lasix in the ER she appears better compensated at this time. continue her home PO lasix of 20 mg daily and jardiance 25 mg daily monitor renal function closely as Cr 1.92 post dose of IV lasix (5) Benign hypertension with chronic kidney disease: Code(s): I12.9 - Hypertensive chronic kidney disease with stage 1 through stage 4 chronic kidney disease, or unspecified chronic kidney disease Status: Acute Assessment and Plan: blood pressure with reasonable control at this time Her Cr was 1.7 on admission. Currently 1.92, monitor (6) Hyperlipidemia: Qualifiers: Hyperlipidemia type: unspecified Qualified Code(s): E78.5 - Hyperlipidemia, unspecified Code(s): E78.5 - Hyperlipidemia, unspecified Status: Chronic Assessment and Plan: currently on simvastatin 40 mg daily and zetia 10 mg daily (7) Pneumonia: Qualifiers: Laterality: bilateral Lung location: unspecified part of lung Pneumonia type: due to unspecified organism Qualified Code(s): J18.9 - Pneumonia, unspecified organism Code(s): J18.9 - Pneumonia, unspecified organism Status: Acute Assessment and Plan: nebs and antibiotics as per primary team Subjective Date/time seen: 05/29/25 08:55 Interval history: Date of service 05/29/25: patient is lying in bed. She still continues to notice fluttering in her chest. No shortness of breath, but notes cough. No dizziness. Review of Systems Review of Systems: All systems reviewed & are unremarkable except as noted in HPI and below Exam Const: General: comfortable and no acute distress Eyes: General: appearance normal, both eyes and all related structures Neck: Neck: supple and No no JVD Resp: Effort & Inspection: normal respiratory effort Auscultation: clear to auscultation bilaterally Cardio: Rate: tachycardic Rhythm: abnormal rhythm Other: irreg irreg Skin: General skin exam: normal color and no rashes or lesions noted Neuro: Speech: normal speech Extrem: General: normal to inspection and no edema Psych: Mental Status: mental status grossly normal Objective Data Vital Signs Vital Signs: Vital Signs - 24 hr 05/28/25 09:07 05/28/25 09:08 05/28/25 09:09 Temperature Pulse Rate 121 H 101 H 97 Respiratory Rate 18 26 H Blood Pressure 108/71 109/56 L 109/56 L Pulse Oximetry 97 98 Oxygen Delivery 05/28/25 09:16 05/28/25 09:46 05/28/25 10:16 Temperature Pulse Rate 101 H 100 104 H Respiratory Rate 22 H 22 H 20 Blood Pressure 102/62 103/53 L 91/71 L Pulse Oximetry 98 99 99 Oxygen Delivery 05/28/25 11:07 05/28/25 11:23 05/28/25 11:25 Temperature Pulse Rate 99 108 H 107 H Respiratory Rate 22 H 18 Blood Pressure 91/64 L 106/70 106/70 Pulse Oximetry 98 96 Oxygen Delivery 05/28/25 12:00 05/28/25 12:00 05/28/25 12:00 Temperature Pulse Rate 113 H 110 H 113 H Respiratory Rate 14 14 Blood Pressure 119/80 Pulse Oximetry 96 96 Oxygen Delivery Room Air 05/28/25 12:17 05/28/25 14:00 05/28/25 14:37 Temperature Pulse Rate 110 H 114 H 114 H Respiratory Rate Blood Pressure 119/80 120/69 Pulse Oximetry Oxygen Delivery 05/28/25 16:00 05/28/25 16:00 05/28/25 16:00 Temperature 36.4 C Pulse Rate 104 H 113 H 113 H Respiratory Rate 14 14 Blood Pressure 111/88 Pulse Oximetry 94 96 Oxygen Delivery Room Air 05/28/25 16:00 05/28/25 18:00 05/28/25 18:00 Temperature Pulse Rate 110 H 100 108 H Respiratory Rate 20 Blood Pressure 111/88 113/58 L Pulse Oximetry 97 Oxygen Delivery 05/28/25 18:11 05/28/25 20:00 05/28/25 20:00 Temperature 36.9 C Pulse Rate 98 87 87 Respiratory Rate 12 Blood Pressure 113/58 L 106/51 L 106/51 L Pulse Oximetry 95 Oxygen Delivery 05/28/25 20:00 05/28/25 20:00 05/28/25 20:59 Temperature Pulse Rate 87 87 87 Respiratory Rate 12 Blood Pressure 106/51 L Pulse Oximetry 95 Oxygen Delivery Room Air 05/28/25 21:44 05/28/25 22:00 05/28/25 22:00 Temperature Pulse Rate 102 H 102 H 102 H Respiratory Rate 16 Blood Pressure 113/50 L 113/50 L Pulse Oximetry 95 Oxygen Delivery 05/28/25 23:57 05/29/25 00:00 05/29/25 00:00 Temperature 36.6 C Pulse Rate 89 89 89 Respiratory Rate 14 14 Blood Pressure 106/61 Pulse Oximetry 93 93 Oxygen Delivery Room Air 05/29/25 00:00 05/29/25 01:46 05/29/25 02:00 Temperature Pulse Rate 89 96 96 Respiratory Rate 16 Blood Pressure 106/61 100/84 Pulse Oximetry 92 Oxygen Delivery 05/29/25 02:00 05/29/25 04:00 05/29/25 04:00 Temperature Pulse Rate 96 112 H 112 H Respiratory Rate 16 Blood Pressure 100/84 Pulse Oximetry 92 Oxygen Delivery Room Air 05/29/25 04:00 05/29/25 04:00 05/29/25 05:54 Temperature 36.6 C Pulse Rate 112 H 112 H 107 H Respiratory Rate 18 16 Blood Pressure 107/71 107/71 124/64 Pulse Oximetry 95 95 Oxygen Delivery 05/29/25 06:00 05/29/25 06:09 05/29/25 07:39 Temperature 36.4 C Pulse Rate 107 H 107 H 118 H Respiratory Rate 20 Blood Pressure 124/64 122/66 Pulse Oximetry 97 Oxygen Delivery 05/29/25 08:00 05/29/25 08:31 05/29/25 08:44 Temperature Pulse Rate 114 H 102 H Respiratory Rate Blood Pressure 122/66 122/66 Pulse Oximetry 98 Oxygen Delivery Room Air Intake/Output Intake/Output: Intake & Output 05/26/25 05/27/25 05/28/25 05/29/25 23:59 23:59 23:59 23:59 Intake Total 2113.4 715.0 Output Total 750 700 Balance 1363.4 15.0 Meds/Results Medications: Active Medications Generic Name Dose Route Start Last Admin Trade Name Freq PRN Reason Stop Dose Admin Acetaminophen 500 mg 05/28/25 12:52 Acetaminophen 500 Mg Tablet PO Q6H PRN Pain (Scale Score 1-3) Allopurinol 200 mg 05/29/25 09:00 05/29/25 08:34 Allopurinol 100 Mg Tablet PO 200 mg DAILY MELANIE Administration Benzonatate 100 mg 05/28/25 13:38 Benzonatate 100 Mg Capsule PO TID PRN Cough Bisacodyl 10 mg 05/28/25 12:52 Bisacodyl 10 Mg Suppository RECTAL DAILY PRN Constipation Calcium Carbonate 500 mg 05/28/25 17:00 05/29/25 08:34 Calcium Carbonate (Oscal) 500 Mg Tablet PO 06/27/25 16:59 500 mg BID MELANIE Administration Dextrose 12.5 gm 05/28/25 12:54 Dextrose 50% 25 Gm/50 Ml Syringe IV PUSH PRN PRN Hypoglycemia Protocol Ezetimibe 10 mg 05/29/25 09:00 05/29/25 08:35 Ezetimibe 10 Mg Tablet PO 10 mg DAILY MELANIE Administration Empagliflozin 25 mg 05/29/25 09:00 05/29/25 08:35 Empagliflozin 25 Mg Tablet PO 25 mg DAILY MELANIE Administration Enoxaparin Sodium 60 mg 05/28/25 16:00 05/28/25 17:56 Enoxaparin 60 Mg/0.6 Ml Syringe SUB-Q 60 mg Q24H MELANIE Administration Ergocalciferol 1,250 mcg 05/28/25 13:15 05/28/25 14:36 Ergocalciferol (Vitamin D2) 1,250 Mcg (50,000 Units) Capsule PO 1,250 mcg Tu@0900 MELANIE Administration Ferrous Sulfate 325 mg 05/29/25 08:00 05/29/25 08:33 Ferrous Sulfate 325 Mg Tablet PO 325 mg DAILY@0800 MELANIE Administration Fluticasone Propionate 1 spray 05/28/25 12:55 05/29/25 08:35 Fluticasone Propionate 0.05% Na Spr 16 Gm Btl (*Bkc) NASAL 1 spray Q12HR MELANIE Administration Furosemide 20 mg 05/29/25 09:00 05/29/25 08:35 Furosemide 20 Mg Tablet PO 20 mg QAM MELANIE Administration Glucagon 1 mg 05/28/25 12:54 Glucagon For Inj 1 Mg Vial IM PRN PRN Hypoglycemia Protocol Glucose 15 gm 05/28/25 12:54 Glucose Oral Gel 15 Gm Of Glucse In 37.5 Gm Tube PO PRN PRN Hypoglycemia Protocol Guaifenesin 600 mg 05/28/25 21:00 05/29/25 08:33 Guaifenesin 12 Hr 600 Mg Tabcr PO 600 mg Q12HR MELANIE Administration Azithromycin 500 mg/ Sodium 250 mls @ 250 mls/hr 05/28/25 12:55 05/29/25 08:35 Chloride IVPB 06/01/25 09:59 250 mls/hr QAM MELANIE Administration Dextrose 1,000 mls @ 100 mls/hr 05/28/25 12:54 Dextrose 5% 1,000 Ml IVPB PRN PRN Hypoglycemia Protocol Doxycycline Hyclate 100 mg/ 100 mls @ 100 mls/hr 05/29/25 09:00 05/29/25 08:32 Sodium Chloride IVPB 06/02/25 09:59 100 mls/hr Q12HR MELANIE Administration Insulin Aspart 2 - 5 units 05/28/25 17:00 05/29/25 07:40 Insulin Aspart (*Bkc) 100 Units/Ml SUB-Q Not Given TIDWM MELANIE Protocol Insulin Glargine 20 units 05/28/25 21:00 05/28/25 20:57 Insulin Glargine (*Bkc) 100 Units/Ml SUB-Q 20 units HS MELANIE Administration Lidocaine 1 patch 05/29/25 09:00 05/29/25 08:37 Lidocaine 5% Patch TRANSDERM 1 patch DAILY MELANIE Administration Magnesium Oxide 400 mg 05/29/25 09:00 05/29/25 08:33 Magnesium Oxide 400 Mg Tablet PO 400 mg DAILY MELANIE Administration Multivitamins/Minerals 1 tab 05/29/25 09:00 Multivitamins /C Lutein (Centrum Silver) Tablet *Bkc PO 06/28/25 08:59 DAILY MELANIE Pantoprazole Sodium 40 mg 05/29/25 09:00 05/29/25 08:33 Pantoprazole 40 Mg Tablet PO 06/28/25 08:59 40 mg DAILY MELANIE Administration Perflutren Lipid Microsphere 0 ml 05/28/25 15:00 Perflutren Lipid Microspheres 1.5 Ml Vial Diluted To 10 Ml Total Volume IV PUSH 05/31/25 15:01 ONCE PRN adequate visualization Protocol Selenium Sulfide 1 applic 05/29/25 09:00 Selenium Sulfide 1% Shampoo 207 Ml TOPICAL MoWeFr@0900 [facility] Simvastatin 40 mg 05/28/25 21:00 05/28/25 20:56 Simvastatin 20 Mg Tablet PO 40 mg HS MELANIE Administration Tramadol HCl 50 mg 05/28/25 13:00 05/29/25 08:34 Tramadol Hcl (*Crx) 50 Mg Tablet PO 50 mg QID MELANIE Administration Trazodone HCl 50 mg 05/28/25 21:00 05/28/25 20:56 Trazodone Hcl 50 Mg Tablet PO 50 mg QHS MELANIE Administration Radiology Results: ITS Impressions Chest X-Ray 05/28/25 10:08 IMPRESSION: Small opacities in the mid and lower lungs, greater on the left, which likely represents atelectasis or inflammatory/infectious process. Recommend follow-up to resolution to exclude underlying nodule. Consider a chest CT. Probable large hiatal hernia. If symptoms persist or worsen, consider a short-term follow-up study or additional imaging for further assessment. Chest CT 05/28/25 10:47 IMPRESSION: 1. There are a few reticular, bandlike and groundglass opacities in the mid and lower lungs. In addition, there are a few small patchy consolidations in the left lower lung. Differential includes atelectasis/scarring and/or an inflammatory/infectious process. 2. Moderate-sized hiatal hernia. Labs Labs: Laboratory Results - last 24 hr 05/28/25 05/28/25 05/28/25 07:58 10:24 13:20 WBC RBC Hgb Hct MCV MCH MCHC RDW Plt Count MPV Immature Gran % (Auto) Neut % (Auto) Lymph % (Auto) [place] % (Auto) Eos % (Auto) Baso % (Auto) Lymph # (Auto) [place] # (Auto) Eos # (Auto) Baso # (Auto) Abs Immat Gran (auto) Absolute Neuts (auto) Absolute Nucleated RBC Nucleated RBC % Sodium Potassium Chloride Carbon Dioxide Anion Gap BUN Creatinine Estim Creat Clear Calc Estimated GFR Glucose POC Capillary Glucose Calcium Magnesium 1.9 Troponin I 0.035 H* 0.038 H* TSH (Reflex) Influenza A (RT-PCR) Influenza B (RT-PCR) RSV (RT-PCR) SARS-CoV-2 RNA (RT-PCR) 05/28/25 05/28/25 05/28/25 14:39 16:25 19:18 WBC RBC Hgb Hct MCV MCH MCHC RDW Plt Count MPV Immature Gran % (Auto) Neut % (Auto) Lymph % (Auto) [place] % (Auto) Eos % (Auto) Baso % (Auto) Lymph # (Auto) [place] # (Auto) Eos # (Auto) Baso # (Auto) Abs Immat Gran (auto) Absolute Neuts (auto) Absolute Nucleated RBC Nucleated RBC % Sodium Potassium Chloride Carbon Dioxide Anion Gap BUN Creatinine Estim Creat Clear Calc Estimated GFR Glucose POC Capillary Glucose 156 H 237 H Calcium Magnesium Troponin I TSH (Reflex) Influenza A (RT-PCR) Negative Influenza B (RT-PCR) Negative RSV (RT-PCR) Negative SARS-CoV-2 RNA (RT-PCR) Negative 10/05/29/25 05/29/25 20:27 04:03 07:25 WBC 6.4 RBC 3.64 L Hgb 11.9 L Hct 37.1 MCV 101.9 H MCH 32.7 MCHC 32.1 RDW 15.1 H Plt Count 181 MPV 8.9 Immature Gran % (Auto) 0.3 Neut % (Auto) 62.5 Lymph % (Auto) 26.4 [place] % (Auto) 7.3 Eos % (Auto) 3.0 Baso % (Auto) 0.5 Lymph # (Auto) 1.70 [place] # (Auto) 0.5 Eos # (Auto) 0.2 Baso # (Auto) 0.0 Abs Immat Gran (auto) 0.02 Absolute Neuts (auto) 4.0 Absolute Nucleated RBC 0.000 Nucleated RBC % 0.0 Sodium 133 L Potassium 4.0 Chloride 98 Carbon Dioxide 27 Anion Gap 8 BUN 37 H Creatinine 1.92 H Estim Creat Clear Calc 18 Estimated GFR 25 L Glucose 143 H POC Capillary Glucose 165 H 140 H Calcium 9.0 Magnesium Troponin I TSH (Reflex) 1.540 Influenza A (RT-PCR) Influenza B (RT-PCR) RSV (RT-PCR) SARS-CoV-2 RNA (RT-PCR)
[2025-05-29] MEDS: MULTIVITAMINS /C LUTEIN (CENTRUM SILVER) TABLET *BKC 1 TAB PO (10:05)
[2025-05-29] MEDS: INSULIN ASPART (*BKC) 100 UNITS/ML SUB-Q (11:31)
--- NOTE | 2025-05-29 13:17 | P.PNIM_ITS ---
Progress Note: A&P Assessment and Plan (1) Paroxysmal atrial fibrillation: Code(s): I48.0 - Paroxysmal atrial fibrillation Status: Acute Assessment and Plan: Patient presented to the emergency department with a heart rate in the 140s, telemetry/EKG showed atrial fibrillation RVR. Initially given metoprolol 5 mg IV x2 without improvement. Subsequently started on Cardizem with IV push x1. Patient's heart rate now consistently 110-115. Patient reporting subjective improvement in shortness of breath since reduction in heart rate. She continues to have some upper back pain that improves with massage but no complaints of chest discomfort. S/p Cardizem infusion, start Amio infusion per cardiology -hold home metoprolol, on 50 mg b.i.d. at home -ECHO pending, TSH wnl -telemetry monitoring cardiology following (2) Pneumonia: Qualifiers: Pneumonia type: due to unspecified organism Laterality: bilateral Lung location: unspecified part of lung Qualified Code(s): J18.9 - Pneumonia, unspecified organism Code(s): J18.9 - Pneumonia, unspecified organism Status: Acute Assessment and Plan: Patient reporting congestion. CXR and CT concerning for inflammatory/infectious process. No leukocytosis. However continues to have some upper back pain despite reduction in heart rate. Has had some improvement in shortness of breath with reduction in heart rate, however still experiencing some mild dyspnea. -check viral PCR -continue ceftriaxone and doxycycline on 05/28 -supportive care: Mucinex, Tylenol, Tessalon Perles -encourage IS (3) Elevated troponin: Code(s): R79.89 - Other specified abnormal findings of blood chemistry Status: Acute Assessment and Plan: Likely demand, no chest pain at bedside Troponin flat ECHO pending further plans per echo report Cardiology following (4) CHF (congestive heart failure): Qualifiers: Heart failure chronicity: acute on chronic Heart failure type: right- sided Qualified Code(s): I50.813 - Acute on chronic right heart failure Code(s): I50.9 - Heart failure, unspecified Status: Acute Assessment and Plan: Contineu home lasix 20mg and Jardiance 25mg daily follow up ECHO and monitor Cardiology following (5) Stage 4 chronic kidney disease: Code(s): N18.4 - Chronic kidney disease, stage 4 (severe) Status: Acute Assessment and Plan: Creatinine 1.77, BUN 33, GFR 27 upon admission on 04/10/2028. Reviewed previous lab work, range in 2023 was highly variable. Patient had values between 0.9 and 2.1. More recently 1.4-1.5. History of CKD stage 4. 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 Initial glucose 158, stable. - hypoglycemia protocol - POC blood glucose ACHS - home medication: Continue Lantus 25 units HS, pharmacist to adjust. Hold on sliding scale. Continue Jardiance. - correct regimen ordered - low/high dose TIDWM - A1C 6.5% on 12/17/2024 (7) Anemia: Qualifiers: Anemia type: unspecified type Qualified Code(s): D64.9 - Anemia, unspecified Code(s): D64.9 - Anemia, unspecified Status: Acute Assessment and Plan: Hemoglobin 11.8 upon admission, previously ranged between 11 and 13. -transfuse if less than 7 -monitor (8) HTN (hypertension): Qualifiers: Hypertension type: essential hypertension Qualified Code(s): I10 - Essential (primary) hypertension Code(s): I10 - Essential (primary) hypertension Status: Chronic Assessment and Plan: -chronic, currently 119/80, stable. -hold home metoprolol, currently on diltiazem drip -monitor (9) Hyperlipidemia: Qualifiers: Hyperlipidemia type: unspecified Qualified Code(s): E78.5 - Hyperlipidemia, unspecified Code(s): E78.5 - Hyperlipidemia, unspecified Status: Chronic Assessment and Plan: -continue simvastatin 40 mg HS Plan Diet: Heart healthy GI Prophylaxis: n/a DVT Prophylaxis: Lovenox SQ IV fluids: None Lines/Tubes: Peripheral IV Code Status: Full code Subjective Date/time seen: 05/29/25 13:17 Interval history: Comfortable at bedside Cardizem infusion changed Amiodarone per cardiology Review of Systems Review of Systems: All systems reviewed & are unremarkable except as noted in HPI and below Exam Const: General: comfortable and no acute distress Other: , female, elderly, nontoxic appearance HENMT: Face/Nose/Sinus: Normal nares present Mouth: Yes moist mucous membranes Eyes: General: appearance normal, both eyes and all related structures Sclera: sclerae normal Pupils: Equal, round and reactive pupils present EOM: EOMs intact bilaterally Resp: Effort & Inspection: normal respiratory effort Auscultation: clear to auscultation bilaterally Cardio: Rate: tachycardic Rhythm: abnormal rhythm Other: Rhythm/rate consistent with AFib RVR. No murmur appreciated. GI: Other: Abdomen soft, nondistended, nontender. Normoactive bowel sounds in all quadrants. Skin: General skin exam: normal color and no rashes or lesions noted Wounds: no wounds Neuro: Cranial nerves: Yes Equal, round and reactive pupils present Speech: normal speech Motor exam (neuro): 5/5 motor strength present throughout Sensory Exam: normal sensation Other: A&O x4 Extrem: General: normal to inspection Psych: Mental Status: mental status grossly normal Affect: normal affect Other: Good insight and judgment, pleasant Objective Data Vital Signs Vital Signs: Vital Signs - 24 hr 05/28/25 14:00 05/28/25 14:37 05/28/25 16:00 Temperature 97.6 F Pulse Rate 114 H 114 H 104 H Respiratory Rate 14 Blood Pressure 120/69 111/88 Pulse Oximetry 94 Oxygen Delivery 05/28/25 16:00 05/28/25 16:00 05/28/25 16:00 Temperature Pulse Rate 113 H 113 H 110 H Respiratory Rate 14 Blood Pressure 111/88 Pulse Oximetry 96 Oxygen Delivery Room Air 05/28/25 18:00 05/28/25 18:00 05/28/25 18:11 Temperature Pulse Rate 100 108 H 98 Respiratory Rate 20 Blood Pressure 113/58 L 113/58 L Pulse Oximetry 97 Oxygen Delivery 05/28/25 20:00 05/28/25 20:00 05/28/25 20:00 Temperature 98.5 F Pulse Rate 87 87 87 Respiratory Rate 12 12 Blood Pressure 106/51 L 106/51 L Pulse Oximetry 95 95 Oxygen Delivery Room Air 05/28/25 20:00 05/28/25 20:59 05/28/25 21:44 Temperature Pulse Rate 87 87 102 H Respiratory Rate 16 Blood Pressure 106/51 L 113/50 L Pulse Oximetry 95 Oxygen Delivery 05/28/25 22:00 05/28/25 22:00 05/28/25 23:57 Temperature 97.8 F Pulse Rate 102 H 102 H 89 Respiratory Rate 14 Blood Pressure 113/50 L 106/61 Pulse Oximetry 93 Oxygen Delivery 05/29/25 00:00 05/29/25 00:00 05/29/25 00:00 Temperature Pulse Rate 89 89 89 Respiratory Rate 14 Blood Pressure 106/61 Pulse Oximetry 93 Oxygen Delivery Room Air 05/29/25 01:46 05/29/25 02:00 05/29/25 02:00 Temperature Pulse Rate 96 96 96 Respiratory Rate 16 Blood Pressure 100/84 100/84 Pulse Oximetry 92 Oxygen Delivery 05/29/25 04:00 05/29/25 04:00 05/29/25 04:00 Temperature 97.9 F Pulse Rate 112 H 112 H 112 H Respiratory Rate 16 18 Blood Pressure 107/71 Pulse Oximetry 92 95 Oxygen Delivery Room Air 05/29/25 04:00 05/29/25 05:54 05/29/25 06:00 Temperature Pulse Rate 112 H 107 H 107 H Respiratory Rate 16 Blood Pressure 107/71 124/64 Pulse Oximetry 95 Oxygen Delivery 05/29/25 06:09 05/29/25 07:39 05/29/25 08:00 Temperature 97.6 F Pulse Rate 107 H 118 H 114 H Respiratory Rate 20 Blood Pressure 124/64 122/66 122/66 Pulse Oximetry 97 Oxygen Delivery 05/29/25 08:00 05/29/25 08:31 05/29/25 08:44 Temperature Pulse Rate 111 H 102 H Respiratory Rate Blood Pressure 122/66 Pulse Oximetry 98 Oxygen Delivery Room Air 05/29/25 09:54 05/29/25 09:54 05/29/25 09:57 Temperature 98.3 F Pulse Rate 110 H 115 H 70 Respiratory Rate 18 Blood Pressure 111/61 111/61 111/61 Pulse Oximetry 94 Oxygen Delivery 05/29/25 10:00 05/29/25 11:33 05/29/25 12:00 Temperature 98.2 F Pulse Rate 90 87 88 Respiratory Rate 18 Blood Pressure 109/63 Pulse Oximetry 95 Oxygen Delivery 05/29/25 12:00 Temperature Pulse Rate 88 Respiratory Rate Blood Pressure 109/63 Pulse Oximetry Oxygen Delivery Intake/Output Intake/Output: Intake & Output 05/26/25 05/27/25 05/28/25 05/29/25 23:59 23:59 23:59 23:59 Intake Total 2113.4 1025.0 Output Total 750 850 Balance 1363.4 175.0 Meds/Results Medications: Active Medications Generic Name Dose Route Start Last Admin Trade Name Freq PRN Reason Stop Dose Admin Acetaminophen 500 mg 05/28/25 12:52 Acetaminophen 500 Mg Tablet PO Q6H PRN Pain (Scale Score 1-3) Allopurinol 200 mg 05/29/25 09:00 05/29/25 08:34 Allopurinol 100 Mg Tablet PO 200 mg DAILY MELANIE Administration Benzonatate 100 mg 05/28/25 13:38 Benzonatate 100 Mg Capsule PO TID PRN Cough Bisacodyl 10 mg 05/28/25 12:52 Bisacodyl 10 Mg Suppository RECTAL DAILY PRN Constipation Calcium Carbonate 500 mg 05/28/25 17:00 05/29/25 08:34 Calcium Carbonate (Oscal) 500 Mg Tablet PO 06/27/25 16:59 500 mg BID MELANIE Administration Dextrose 12.5 gm 05/28/25 12:54 Dextrose 50% 25 Gm/50 Ml Syringe IV PUSH PRN PRN Hypoglycemia Protocol Ezetimibe 10 mg 05/29/25 09:00 05/29/25 08:35 Ezetimibe 10 Mg Tablet PO 10 mg DAILY MELANIE Administration Empagliflozin 25 mg 05/29/25 09:00 05/29/25 08:35 Empagliflozin 25 Mg Tablet PO 25 mg DAILY MELANIE Administration Enoxaparin Sodium 60 mg 05/28/25 16:00 05/28/25 17:56 Enoxaparin 60 Mg/0.6 Ml Syringe SUB-Q 60 mg Q24H MELANIE Administration Ergocalciferol 1,250 mcg 05/28/25 13:15 05/28/25 14:36 Ergocalciferol (Vitamin D2) 1,250 Mcg (50,000 Units) Capsule PO 1,250 mcg Tu@0900 MELANIE Administration Ferrous Sulfate 325 mg 05/29/25 08:00 05/29/25 08:33 Ferrous Sulfate 325 Mg Tablet PO 325 mg DAILY@0800 MELANIE Administration Fluticasone Propionate 1 spray 05/28/25 12:55 05/29/25 08:35 Fluticasone Propionate 0.05% Na Spr 16 Gm Btl (*Bkc) NASAL 1 spray Q12HR MELANIE Administration Furosemide 20 mg 05/29/25 09:00 05/29/25 08:35 Furosemide 20 Mg Tablet PO 20 mg QAM MELANIE Administration Glucagon 1 mg 05/28/25 12:54 Glucagon For Inj 1 Mg Vial IM PRN PRN Hypoglycemia Protocol Glucose 15 gm 05/28/25 12:54 Glucose Oral Gel 15 Gm Of Glucse In 37.5 Gm Tube PO PRN PRN Hypoglycemia Protocol Guaifenesin 600 mg 05/28/25 21:00 05/29/25 08:33 Guaifenesin 12 Hr 600 Mg Tabcr PO 600 mg Q12HR MELANIE Administration Azithromycin 500 mg/ Sodium 250 mls @ 250 mls/hr 05/28/25 12:55 05/29/25 08:35 Chloride IVPB 06/01/25 09:59 250 mls/hr QAM MELANIE Administration Dextrose 1,000 mls @ 100 mls/hr 05/28/25 12:54 Dextrose 5% 1,000 Ml IVPB PRN PRN Hypoglycemia Protocol Doxycycline Hyclate 100 mg/ 100 mls @ 100 mls/hr 05/29/25 09:00 05/29/25 08:32 Sodium Chloride IVPB 06/02/25 09:59 100 mls/hr Q12HR MELANIE Administration Amiodarone HCl/Dextrose 360 mg in 200 mls @ 33.333 mls/hr 05/29/25 09:10 05/29/25 12:00 Nexterone 360 Mg/D5w 200 Ml IV CONT 05/29/25 15:09 1 mg/min .Q6H ONE 33.33 mls/hr 1 MG/MIN Infusion Amiodarone HCl/Dextrose 360 mg in 200 mls @ 16.667 mls/hr 05/29/25 15:10 Nexterone 360 Mg/D5w 200 Ml IV CONT .Q12H MELANIE 0.5 MG/MIN Insulin Aspart 2 - 5 units 05/28/25 17:00 05/29/25 11:31 Insulin Aspart (*Bkc) 100 Units/Ml SUB-Q 2 units TIDWM MELANIE Administration Protocol Insulin Glargine 20 units 05/28/25 21:00 05/28/25 20:57 Insulin Glargine (*Bkc) 100 Units/Ml SUB-Q 20 units HS MELANIE Administration Lidocaine 1 patch 05/29/25 09:00 05/29/25 08:37 Lidocaine 5% Patch TRANSDERM 1 patch DAILY MELANIE Administration Magnesium Oxide 400 mg 05/29/25 09:00 05/29/25 08:33 Magnesium Oxide 400 Mg Tablet PO 400 mg DAILY MELANIE Administration Multivitamins/Minerals 1 tab 05/29/25 09:00 05/29/25 10:05 Multivitamins /C Lutein (Centrum Silver) Tablet *Bkc PO 06/28/25 08:59 1 tab DAILY MELANIE Administration Pantoprazole Sodium 40 mg 05/29/25 09:00 05/29/25 08:33 Pantoprazole 40 Mg Tablet PO 06/28/25 08:59 40 mg DAILY MELANIE Administration Perflutren Lipid Microsphere 0 ml 05/28/25 15:00 Perflutren Lipid Microspheres 1.5 Ml Vial Diluted To 10 Ml Total Volume IV PUSH 05/31/25 15:01 ONCE PRN adequate visualization Protocol Selenium Sulfide 1 applic 05/29/25 09:00 05/29/25 10:02 Selenium Sulfide 1% Shampoo 207 Ml TOPICAL Not Given MoWeFr@[id number] MELANIE Simvastatin 40 mg 05/28/25 21:00 05/28/25 20:56 Simvastatin 20 Mg Tablet PO 40 mg HS MELANIE Administration Tramadol HCl 50 mg 05/28/25 13:00 05/29/25 11:31 Tramadol Hcl (*Crx) 50 Mg Tablet PO 50 mg QID MELANIE Administration Trazodone HCl 50 mg 05/28/25 21:00 05/28/25 20:56 Trazodone Hcl 50 Mg Tablet PO 50 mg QHS MELANIE Administration Radiology Results: ITS Impressions Chest X-Ray 05/28/25 10:08 IMPRESSION: Small opacities in the mid and lower lungs, greater on the left, which likely represents atelectasis or inflammatory/infectious process. Recommend follow-up to resolution to exclude underlying nodule. Consider a chest CT. Probable large hiatal hernia. If symptoms persist or worsen, consider a short-term follow-up study or additional imaging for further assessment. Chest CT 05/28/25 10:47 IMPRESSION: 1. There are a few reticular, bandlike and groundglass opacities in the mid and lower lungs. In addition, there are a few small patchy consolidations in the left lower lung. Differential includes atelectasis/scarring and/or an inflamm atory/infectious process. 2. Moderate-sized hiatal hernia. Labs Labs: Laboratory Results - last 24 hr 05/28/25 05/28/25 05/28/25 13:20 14:39 16:25 WBC RBC Hgb Hct MCV MCH MCHC RDW Plt Count MPV Immature Gran % (Auto) Neut % (Auto) Lymph % (Auto) [place] % (Auto) Eos % (Auto) Baso % (Auto) Lymph # (Auto) [place] # (Auto) Eos # (Auto) Baso # (Auto) Abs Immat Gran (auto) Absolute Neuts (auto) Absolute Nucleated RBC Nucleated RBC % Sodium Potassium Chloride Carbon Dioxide Anion Gap BUN Creatinine Estim Creat Clear Calc Estimated GFR Glucose POC Capillary Glucose 156 H 237 H Calcium Troponin I 0.038 H* TSH (Reflex) Influenza A (RT-PCR) Influenza B (RT-PCR) RSV (RT-PCR) SARS-CoV-2 RNA (RT-PCR) 05/28/25 05/28/25 05/29/25 19:18 20:27 04:03 WBC 6.4 RBC 3.64 L Hgb 11.9 L Hct 37.1 MCV 101.9 H MCH 32.7 MCHC 32.1 RDW 15.1 H Plt Count 181 MPV 8.9 Immature Gran % (Auto) 0.3 Neut % (Auto) 62.5 Lymph % (Auto) 26.4 [place] % (Auto) 7.3 Eos % (Auto) 3.0 Baso % (Auto) 0.5 Lymph # (Auto) 1.70 [place] # (Auto) 0.5 Eos # (Auto) 0.2 Baso # (Auto) 0.0 Abs Immat Gran (auto) 0.02 Absolute Neuts (auto) 4.0 Absolute Nucleated RBC 0.000 Nucleated RBC % 0.0 Sodium 133 L Potassium 4.0 Chloride 98 Carbon Dioxide 27 Anion Gap 8 BUN 37 H Creatinine 1.92 H Estim Creat Clear Calc 18 Estimated GFR 25 L Glucose 143 H POC Capillary Glucose 165 H Calcium 9.0 Troponin I TSH (Reflex) 1.540 Influenza A (RT-PCR) Negative Influenza B (RT-PCR) Negative RSV (RT-PCR) Negative SARS-CoV-2 RNA (RT-PCR) Negative 05/29/25 05/29/25 07:25 11:13 WBC RBC Hgb Hct MCV MCH MCHC RDW Plt Count MPV Immature Gran % (Auto) Neut % (Auto) Lymph % (Auto) [place] % (Auto) Eos % (Auto) Baso % (Auto) Lymph # (Auto) [place] # (Auto) Eos # (Auto) Baso # (Auto) Abs Immat Gran (auto) Absolute Neuts (auto) Absolute Nucleated RBC Nucleated RBC % Sodium Potassium Chloride Carbon Dioxide Anion Gap BUN Creatinine Estim Creat Clear Calc Estimated GFR Glucose POC Capillary Glucose 140 H 241 H Calcium Troponin I TSH (Reflex) Influenza A (RT-PCR) Influenza B (RT-PCR) RSV (RT-PCR) SARS-CoV-2 RNA (RT-PCR) Quality VTE Prophylaxis VTE prophylaxis: pharmacologic ordered
[2025-05-29] MEDS: ENOXAPARIN 60 MG/0.6 ML SYRINGE SUB-Q (15:43)
[2025-05-29] MEDS: SIMVASTATIN 20 MG TABLET 40 MG PO (21:12)
[2025-05-29] MEDS: INSULIN GLARGINE (*BKC) 100 UNITS/ML 20 UNITS SUB-Q (21:13)
[2025-05-30] VITALS (31 sets, daily range): BP systolic 110–135; BP diastolic 51–92; PULSE 106–156; RESP 16–20; TEMP 36.6–36.9; O2SAT 96–99
[2025-05-30 03:59] LABS: Hematocrit 33.9 % (37.0-47.0); Hemoglobin 10.7 g/dL (12.0-15.0); Immature Granulocyte Percent A 0.6 % (0-0.5); Lymphocytes Absolute Auto 1.47 K/mm3 (0.9-3.2); Mean Corpuscular HGB Conc 31.6 g/dl (32-36); Mean Corpuscular Hemoglobin 32.2 pg (26-34); Mean Corpuscular Volume 102.1 fl (80-100); Nucleated Red Blood Cells Absolute Auto 0.000 K/mm3 (0.0-0.012); Nucleated Red Blood Cells Perc 0.0 % (0.0-0.2); Platelet Count Result 159 k/mm3 (150-375); Red Blood Count 3.32 M/mm3 (4.2-5.4); White Blood Count 5.3 K/mm3 (4.5-10.0)
[2025-05-30 04:22] LABS: Alanine Aminotransferase 14 U/L (6-35); Albumin Level 3.6 g/dL (3.5-5.1); Alkaline Phosphatase 77 U/L (38-126); Anion Gap 10 mmol/L (4-12); Aspartate Amino Transferase 28 U/L (14-36); Bilirubin,Total 0.3 mg/dL (0.2-1.3); Blood Urea Nitrogen 35 mg/dL (7-17); Calcium 8.9 mg/dL (8.4-10.2); Carbon Dioxide 28 mmol/L (22-30); Chloride 99 mmol/L (98-107); Estimated CRCL calculation 20 ml/min; Estimated Glomerular Filt Rate 27; Glucose 146 mg/dL (65-110); Magnesium 1.8 mg/dL (1.6-2.3); Potassium 3.7 mmol/L (3.4-5.0); Sodium 137 mmol/L (137-145); Total Protein 6.2 g/dL (6.3-8.2)
--- NOTE | 2025-05-30 09:22 | P.PNCA_ITS ---
Progress Note: A&P Assessment and Plan (1) Paroxysmal atrial fibrillation: Code(s): I48.0 - Paroxysmal atrial fibrillation <Salina Tillman APRN - Last Filed: 05/30/25 09:35> Status: Acute <Salina Tillman APRN - Last Filed: 05/30/25 09:35> Assessment and Plan: * Patient presents in afib with RVR. She is symptomatic with associated chest pain and shortness of breath * on last noted EKG was in NSR, but appears she has had afib in the past * this am she is in afib with RVR despite IV amiodarone * will increase amiodarone back to 1mg * will add lopressor 25 mg BID and 2.5mg IV prn q6hr for sustained HR >130 * will plan for PRIYA/CV in am. Patient agreeable and risk/benefits discussed. Understanding verbalized. NPO after midnight * will change to eliquis 2.5 mg BID for AC. Monitor for any bleeding <Salina Tillman APRN - Last Filed: 05/30/25 09:35> * Patient presents in afib with RVR. She is symptomatic with associated chest pain and shortness of breath * on last noted EKG was in NSR, but appears she has had afib in the past * this am she is in afib with RVR despite IV amiodarone * will increase amiodarone back to 1mg * will add lopressor 25 mg q6h and 2.5mg IV prn q6hr for sustained HR >130 * will plan for PRIYA/CV in am. Patient agreeable and risk/benefits discussed. Understanding verbalized. NPO after midnight * will change to eliquis 2.5 mg BID for AC. Monitor for any bleeding <Venancio Rosen MD - Last Filed: 05/30/25 13:55> (2) Elevated troponin: Code(s): R79.89 - Other specified abnormal findings of blood chemistry <Salina Tillman APRN - Last Filed: 05/30/25 09:35> Status: Acute <Salina Tillman APRN - Last Filed: 05/30/25 09:35> Assessment and Plan: * patient noted to have flat minimal troponin elevation of 0.038, 0.035, 0.038 * this most likely represents demand ischemia in the setting of afib with rvr * EKG with no acute ST/T wave changes * last echo demonstrated EF of 70% * repeat echo shows EF of 60-65% with mild AR and mod MR and TR * no plans for any invasive w/u * Continue zetia 10 mg daily <Salina Tillman APRN - Last Filed: 05/30/25 09:35> (3) Aortic valve stenosis: Code(s): I35.0 - Nonrheumatic aortic (valve) stenosis <Salina Tillman DRILL SETUP OPERATOR - Last Filed: 05/30/25 09:35> Status: Acute <Salina Tillman DRILL SETUP OPERATOR - Last Filed: 05/30/25 09:35> Assessment and Plan: * repeat echo demonstrates mild AR <Salina Tillman DRILL SETUP OPERATOR - Last Filed: 05/30/25 09:35> (4) Diastolic congestive heart failure: Code(s): I50.30 - Unspecified diastolic (congestive) heart failure <Salina Tillman DRILL SETUP OPERATOR - Last Filed: 05/30/25 09:35> Status: Acute <Salina Tillman DRILL SETUP OPERATOR - Last Filed: 05/30/25 09:35> Assessment and Plan: * acute on chronic diastolic CHF * this is in the setting of afib with rvr * her pBNP was elevated at 15,1000 * she was given a dose of IV lasix in the ER * she appears better compensated at this time, but monitor closely with afib with RVR as may decompensate * continue her home PO lasix of 20 mg daily and jardiance 25 mg daily * monitor renal function closely as Cr 1.92 post dose of IV lasix <Salina Tillman APRN - Last Filed: 05/30/25 09:35> (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 Currently 1.75, monitor <Salina Tillman DRILL SETUP OPERATOR - Last Filed: 05/30/25 09:35> (6) Hyperlipidemia: Qualifiers: Hyperlipidemia type: unspecified Qualified Code(s): E78.5 - Hyperlipidemia, unspecified <Salina Tillman DRILL SETUP OPERATOR - Last Filed: 05/30/25 09:35> Code(s): E78.5 - Hyperlipidemia, unspecified <Salina Tillman DRILL SETUP OPERATOR - Last Filed: 05/30/25 09:35> Status: Chronic <Salina Tillman DRILL SETUP OPERATOR - Last Filed: 05/30/25 09:35> Assessment and Plan: * currently on simvastatin 40 mg daily and zetia 10 mg daily <Salina Tillman DRILL SETUP OPERATOR - Last Filed: 05/30/25 09:35> (7) Pneumonia: Qualifiers: Laterality: bilateral Lung location: unspecified part of lung Pneumonia type: due to unspecified organism Qualified Code(s): J18.9 - Pneumonia, unspecified organism <Salina Tillman DRILL SETUP OPERATOR - Last Filed: 05/30/25 09:35> Code(s): J18.9 - Pneumonia, unspecified organism <Salina Tillman DRILL SETUP OPERATOR - Last Filed: 05/30/25 09:35> Status: Acute <Salina Tillman DRILL SETUP OPERATOR - Last Filed: 05/30/25 09:35> Assessment and Plan: * nebs and antibiotics as per primary team <Salina Tillman APRN - Last Filed: 05/30/25 09:35> Subjective Date/time seen: 05/30/25 09:22 <Salina Tillman APRN - Last Filed: 05/30/25 09:35> Interval history: Date of service 05/29/25: patient is lying in bed. She still continues to notice fluttering in her chest. No shortness of breath, but notes cough. No dizziness. Date of service 05/30/25: patient is sitting up in bed, she is having some shortness of breath and palpitations this am. Her HR is back up in the 140s. <Salina Tillman APRN - Last Filed: 05/30/25 09:35> Review of Systems Review of Systems: All systems reviewed & are unremarkable except as noted in HPI and below <Salina Tillman APRN - Last Filed: 05/30/25 09:35> Exam Const: General: comfortable and no acute distress <Salina Tillman DRILL SETUP OPERATOR - Last Filed: 05/30/25 09:35> Eyes: General: appearance normal, both eyes and all related structures <Salina Tillman DRILL SETUP OPERATOR - Last Filed: 05/30/25 09:35> Neck: Neck: supple and No no JVD <Salina Tillman DRILL SETUP OPERATOR - Last Filed: 05/30/25 09:35> Resp: Effort & Inspection: normal respiratory effort <Salina narayanan DRILL SETUP OPERATOR - Last Filed: 05/30/25 09:35> Auscultation: clear to auscultation bilaterally <Salina Tillman APRN - Last Filed: 05/30/25 09:35> Cardio: Rate: tachycardic <Salina Tillman DRILL SETUP OPERATOR - Last Filed: 05/30/25 09:35> Rhythm: abnormal rhythm <Salina Tillman APRN - Last Filed: 05/30/25 09:35> Other: irreg irreg <Salina Tillman DRILL SETUP OPERATOR - Last Filed: 05/30/25 09:35> Skin: General skin exam: normal color and no rashes or lesions noted <Salina Tillman APRN - Last Filed: 05/30/25 09:35> Neuro: Speech: normal speech <Salina Tillman APRN - Last Filed: 05/30/25 09:35> Extrem: General: normal to inspection and no edema <Salina Tillman DRILL SETUP OPERATOR - Last Filed: 05/30/25 09:35> Psych: Mental Status: mental status grossly normal <Salina SimeonDebbie Tillman, DRILL SETUP OPERATOR - Last Filed: 05/30/25 09:35> Objective Data Vital Signs Vital Signs: Vital Signs - 24 hr 05/29/25 09:54 05/29/25 09:54 05/29/25 09:57 Temperature 36.8 C Pulse Rate 110 H 115 H 70 Respiratory Rate 18 Blood Pressure 111/61 111/61 111/61 Pulse Oximetry 94 Oxygen Delivery 05/29/25 10:00 05/29/25 11:33 05/29/25 12:00 Temperature 36.8 C Pulse Rate 90 87 88 Respiratory Rate 18 Blood Pressure 109/63 Pulse Oximetry 95 Oxygen Delivery 05/29/25 12:00 05/29/25 13:50 05/29/25 14:00 Temperature 36.7 C Pulse Rate 88 112 H 107 H Respiratory Rate 20 Blood Pressure 109/63 112/71 Pulse Oximetry 98 Oxygen Delivery 05/29/25 14:00 05/29/25 15:44 05/29/25 15:55 Temperature 36.6 C Pulse Rate 96 130 H 110 H Respiratory Rate 16 Blood Pressure 112/71 126/76 126/76 Pulse Oximetry 94 Oxygen Delivery 05/29/25 16:00 05/29/25 18:00 05/29/25 18:00 Temperature Pulse Rate 109 H 119 H 137 H Respiratory Rate Blood Pressure 126/70 Pulse Oximetry Oxygen Delivery 05/29/25 18:15 05/29/25 20:00 05/29/25 20:00 Temperature 36.9 C 36.9 C Pulse Rate 128 H 128 H 132 H Respiratory Rate 20 18 18 Blood Pressure 126/70 135/62 Pulse Oximetry 96 100 100 Oxygen Delivery Room Air 05/29/25 20:00 05/29/25 20:00 05/29/25 22:00 Temperature Pulse Rate 132 H 132 H 124 H Respiratory Rate Blood Pressure 135/62 122/57 L Pulse Oximetry 97 Oxygen Delivery 05/29/25 22:00 05/29/25 22:00 05/29/25 23:57 Temperature 36.7 C Pulse Rate 124 H 124 H 135 H Respiratory Rate 18 Blood Pressure 122/57 L 125/63 Pulse Oximetry 98 Oxygen Delivery 05/30/25 00:00 05/30/25 00:00 05/30/25 00:00 Temperature Pulse Rate 122 H 122 H 122 H Respiratory Rate 18 Blood Pressure 125/63 Pulse Oximetry 98 Oxygen Delivery Room Air 05/30/25 02:00 05/30/25 02:00 05/30/25 02:00 Temperature Pulse Rate 119 H 119 H 119 H Respiratory Rate 20 Blood Pressure 119/60 119/60 Pulse Oximetry Oxygen Delivery 05/30/25 02:22 05/30/25 02:22 05/30/25 04:00 Temperature Pulse Rate 122 H 122 H 126 H Respiratory Rate 20 Blood Pressure 119/60 119/60 Pulse Oximetry 98 Oxygen Delivery Room Air 05/30/25 04:00 05/30/25 04:00 05/30/25 04:29 Temperature 36.6 C Pulse Rate 126 H 126 H 131 H Respiratory Rate 18 Blood Pressure 129/69 129/69 Pulse Oximetry 97 Oxygen Delivery 05/30/25 05:45 05/30/25 05:50 05/30/25 05:51 Temperature Pulse Rate 116 H 116 H 116 H Respiratory Rate 18 Blood Pressure 130/72 130/72 Pulse Oximetry 98 Oxygen Delivery 05/30/25 07:44 Temperature 36.9 C Pulse Rate 141 H Respiratory Rate 20 Blood Pressure 135/51 L Pulse Oximetry 96 Oxygen Delivery <Salina Tillman APRN - Last Filed: 05/30/25 09:35> Intake/Output Intake/Output: Intake & Output 05/27/25 05/28/25 05/29/25 05/30/25 23:59 23:59 23:59 23:59 Intake Total 2113.4 1936.1 770.7 Output Total 750 1100 700 Balance 1363.4 836.1 70.7 <Salina Tillman DRILL SETUP OPERATOR - Last Filed: 05/30/25 09:35> Meds/Results Medications: Active Medications Generic Name Dose Route Start Last Admin Trade Name Freq PRN Reason Stop Dose Admin Acetaminophen 500 mg 05/28/25 12:52 Acetaminophen 500 Mg Tablet PO Q6H PRN Pain (Scale Score 1-3) Allopurinol 200 mg 05/29/25 09:00 05/29/25 08:34 Allopurinol 100 Mg Tablet PO 200 mg DAILY MELANIE Administration Benzonatate 100 mg 05/28/25 13:38 Benzonatate 100 Mg Capsule PO TID PRN Cough Bisacodyl 10 mg 05/28/25 12:52 Bisacodyl 10 Mg Suppository RECTAL DAILY PRN Constipation Calcium Carbonate 500 mg 05/28/25 17:00 05/29/25 16:52 Calcium Carbonate (Oscal) 500 Mg Tablet PO 06/27/25 16:59 500 mg BID MELANIE Administration Dextrose 12.5 gm 05/28/25 12:54 Dextrose 50% 25 Gm/50 Ml Syringe IV PUSH PRN PRN Hypoglycemia Protocol Ezetimibe 10 mg 05/29/25 09:00 05/29/25 08:35 Ezetimibe 10 Mg Tablet PO 10 mg DAILY MELANIE Administration Empagliflozin 25 mg 05/29/25 09:00 05/29/25 08:35 Empagliflozin 25 Mg Tablet PO 25 mg DAILY MELANIE Administration Enoxaparin Sodium 60 mg 05/28/25 16:00 05/29/25 15:43 Enoxaparin 60 Mg/0.6 Ml Syringe SUB-Q 60 mg Q24H MELANIE Administration Ergocalciferol 1,250 mcg 05/28/25 13:15 05/28/25 14:36 Ergocalciferol (Vitamin D2) 1,250 Mcg (50,000 Units) Capsule PO 1,250 mcg Tu@0900 MELANIE Administration Ferrous Sulfate 325 mg 05/29/25 08:00 05/29/25 08:33 Ferrous Sulfate 325 Mg Tablet PO 325 mg DAILY@0800 MELANIE Administration Fluticasone Propionate 1 spray 05/28/25 12:55 05/29/25 21:14 Fluticasone Propionate 0.05% Na Spr 16 Gm Btl (*Bkc) NASAL 1 spray Q12HR MELANIE Administration Furosemide 20 mg 05/29/25 09:00 05/29/25 08:35 Furosemide 20 Mg Tablet PO 20 mg QAM MELANIE Administration Glucagon 1 mg 05/28/25 12:54 Glucagon For Inj 1 Mg Vial IM PRN PRN Hypoglycemia Protocol Glucose 15 gm 05/28/25 12:54 Glucose Oral Gel 15 Gm Of Glucse In 37.5 Gm Tube PO PRN PRN Hypoglycemia Protocol Guaifenesin 600 mg 05/28/25 21:00 05/29/25 21:12 Guaifenesin 12 Hr 600 Mg Tabcr PO 600 mg Q12HR MELANIE Administration Azithromycin 500 mg/ Sodium 250 mls @ 250 mls/hr 05/28/25 12:55 05/29/25 08:35 Chloride IVPB 06/01/25 09:59 250 mls/hr QAM MELANIE Administration Dextrose 1,000 mls @ 100 mls/hr 05/28/25 12:54 Dextrose 5% 1,000 Ml IVPB PRN PRN Hypoglycemia Protocol Doxycycline Hyclate 100 mg/ 100 mls @ 100 mls/hr 05/29/25 09:00 05/29/25 22:15 Sodium Chloride IVPB 06/02/25 09:59 Infused Q12HR MELANIE Infusion Amiodarone HCl/Dextrose 360 mg in 200 mls @ 33.333 mls/hr 05/29/25 15:10 05/30/25 05:51 Nexterone 360 Mg/D5w 200 Ml IV CONT 0.5 mg/min .Q6H MELANIE 16.67 mls/hr 1 MG/MIN Infusion Insulin Aspart 2 - 5 units 05/28/25 17:00 05/29/25 15:50 Insulin Aspart (*Bkc) 100 Units/Ml SUB-Q Not Given TIDWM [facility] Protocol Insulin Glargine 20 units 05/28/25 21:00 05/29/25 21:13 Insulin Glargine (*Bkc) 100 Units/Ml SUB-Q 20 units HS MELANIE Administration Lidocaine 1 patch 05/29/25 09:00 05/29/25 08:37 Lidocaine 5% Patch TRANSDERM 1 patch DAILY MELANIE Administration Magnesium Oxide 400 mg 05/29/25 09:00 05/29/25 08:33 Magnesium Oxide 400 Mg Tablet PO 400 mg DAILY MELANIE Administration Metoprolol Tartrate 2.5 mg 05/30/25 09:17 Metoprolol Tartrate Inj 5 Mg/5 Ml Vial IV PUSH Q6HR PRN tachycardia Metoprolol Tartrate 25 mg 05/30/25 21:00 Metoprolol Tartrate 25 Mg Tablet PO Q12HR [facility] Multivitamins/Minerals 1 tab 05/29/25 09:00 05/29/25 10:05 Multivitamins /C Lutein (Centrum Silver) Tablet *Bkc PO 06/28/25 08:59 1 tab DAILY MELANIE Administration Pantoprazole Sodium 40 mg 05/29/25 09:00 05/29/25 08:33 Pantoprazole 40 Mg Tablet PO 06/28/25 08:59 40 mg DAILY MELANIE Administration Perflutren Lipid Microsphere 0 ml 05/28/25 15:00 Perflutren Lipid Microspheres 1.5 Ml Vial Diluted To 10 Ml Total Volume IV PUSH 05/31/25 15:01 ONCE PRN adequate visualization Protocol Selenium Sulfide 1 applic 05/29/25 09:00 05/29/25 10:02 Selenium Sulfide 1% Shampoo 207 Ml TOPICAL Not Given [id number] MELANIE Simvastatin 40 mg 05/28/25 21:00 05/29/25 21:12 Simvastatin 20 Mg Tablet PO 40 mg HS MELANIE Administration Tramadol HCl 50 mg 05/28/25 13:00 05/29/25 21:12 Tramadol Hcl (*Crx) 50 Mg Tablet PO 50 mg QID MELANIE Administration Trazodone HCl 50 mg 05/28/25 21:00 05/29/25 21:12 Trazodone Hcl 50 Mg Tablet PO 50 mg QHS MELANIE Administration <Salina Tillman, DRILL SETUP OPERATOR - Last Filed: 05/30/25 09:35> Radiology Results: ITS Impressions Chest X-Ray 05/28/25 10:08 IMPRESSION: Small opacities in the mid and lower lungs, greater on the left, which likely represents atelectasis or inflammatory/infectious process. Recommend follow-up to resolution to exclude underlying nodule. Consider a chest CT. Probable large hiatal hernia. If symptoms persist or worsen, consider a short-term follow-up study or additional imaging for further assessment. Chest CT 05/28/25 10:47 IMPRESSION: 1. There are a few reticular, bandlike and groundglass opacities in the mid and lower lungs. In addition, there are a few small patchy consolidations in the left lower lung. Differential includes atelectasis/scarring and/or an inflammatory/infectious process. 2. Moderate-sized hiatal hernia. <Salina Tillman, DRILL SETUP OPERATOR - Last Filed: 05/30/25 09:35> Labs Labs: Laboratory Results - last 24 hr 05/29/25 05/29/25 05/29/25 11:13 15:49 20:30 WBC RBC Hgb Hct MCV MCH MCHC RDW Plt Count MPV Immature Gran % (Auto) Neut % (Auto) Lymph % (Auto) Barron % (Auto) Eos % (Auto) Baso % (Auto) Lymph # (Auto) Barron # (Auto) Eos # (Auto) Baso # (Auto) Abs Immat Gran (auto) Absolute Neuts (auto) Absolute Nucleated RBC Nucleated RBC % Sodium Potassium Chloride Carbon Dioxide Anion Gap BUN Creatinine Estim Creat Clear Calc Estimated GFR Glucose POC Capillary Glucose 241 H 162 H 215 H Calcium Magnesium Total Bilirubin AST ALT Alkaline Phosphatase Total Protein Albumin 05/30/25 05/30/25 03:45 07:22 WBC 5.3 RBC 3.32 L Hgb 10.7 L Hct 33.9 L MCV 102.1 H MCH 32.2 MCHC 31.6 L RDW 15.1 H Plt Count 159 MPV 9.0 Immature Gran % (Auto) 0.6 H Neut % (Auto) 61.0 Lymph % (Auto) 27.5 Barron % (Auto) 7.7 Eos % (Auto) 2.8 Baso % (Auto) 0.4 Lymph # (Auto) 1.47 Barron # (Auto) 0.4 Eos # (Auto) 0.2 Baso # (Auto) 0.0 Abs Immat Gran (auto) 0.03 Absolute Neuts (auto) 3.3 Absolute Nucleated RBC 0.000 Nucleated RBC % 0.0 Sodium 137 Potassium 3.7 Chloride 99 Carbon Dioxide 28 Anion Gap 10 BUN 35 H Creatinine 1.75 H Estim Creat Clear Calc 20 Estimated GFR 27 L Glucose 146 H POC Capillary Glucose 155 H Calcium 8.9 Magnesium 1.8 Total Bilirubin 0.3 AST 28 ALT 14 Alkaline Phosphatase 77 Total Protein 6.2 L Albumin 3.6 <Salina Tillman, DRILL SETUP OPERATOR - Last Filed: 05/30/25 09:35>
[2025-05-30] MEDS: AZITHROMYCIN IV 500 MG in SODIUM CHLORIDE 0.9% IV 250 ML IVPB (09:24)
[2025-05-30] MEDS: DOXYCYCLINE IV 100 MG in SODIUM CHLORIDE 0.9% IV 100 ML IVPB ×2 (09:25→20:36)
[2025-05-30] MEDS: MULTIVITAMINS /C LUTEIN (CENTRUM SILVER) TABLET *BKC 1 TAB PO (09:34)
[2025-05-30] MEDS: traMADol HCL (*CRX) 50 MG TABLET PO ×4 (09:34→20:35)
[2025-05-30] MEDS: EZETIMIBE 10 MG TABLET PO (09:34)
[2025-05-30] MEDS: FUROSEMIDE 20 MG TABLET PO (09:34)
[2025-05-30] MEDS: PANTOPRAZOLE 40 MG TABLET PO (09:34)
[2025-05-30] MEDS: EMPAGLIFLOZIN 25 MG TABLET PO (09:34)
[2025-05-30] MEDS: CALCIUM CARBONATE (OSCAL) 500 MG TABLET PO ×2 (09:34→18:08)
[2025-05-30] MEDS: MAGNESIUM OXIDE 400 MG TABLET PO (09:34)
[2025-05-30] MEDS: FERROUS SULFATE 325 MG TABLET PO (09:34)
[2025-05-30] MEDS: guaiFENesin 12 HR 600 MG TABCR PO ×2 (09:34→20:35)
[2025-05-30] MEDS: FLUTICASONE PROPIONATE 0.05% NA SPR 16 GM BTL (*BKC) 1 SPRAY NASAL ×2 (09:35→20:37)
[2025-05-30] MEDS: LIDOCAINE 5% PATCH 1 PATCH TRANSDERM (09:38)
[2025-05-30] MEDS: METOPROLOL TARTRATE INJ 5 MG/5 ML VIAL 2.5 MG IV PUSH (09:39)
[2025-05-30] MEDS: APIXABAN 2.5 MG TABLET PO ×2 (11:41→20:35)
[2025-05-30] MEDS: INSULIN ASPART (*BKC) 100 UNITS/ML SUB-Q (11:44)
[2025-05-30] MEDS: METOPROLOL TARTRATE 25 MG TABLET PO ×3 (15:10→23:07)
[2025-05-30] MEDS: METOPROLOL TARTRATE INJ 5 MG/5 ML VIAL IV PUSH (15:11)
--- NOTE | 2025-05-30 16:33 | PM.IMPN ---
Progress Note: A&P Assessment and Plan (1) Paroxysmal atrial fibrillation: Code(s): I48.0 - Paroxysmal atrial fibrillation Status: Acute Assessment and Plan: Patient presented to the emergency department with a heart rate in the 140s, telemetry/EKG showed atrial fibrillation RVR. Initially given metoprolol 5 mg IV x2 without improvement. Subsequently started on Cardizem with IV push x1. Patient's heart rate now consistently 110-115. Patient reporting subjective improvement in shortness of breath since reduction in heart rate. She continues to have some upper back pain that improves with massage but no complaints of chest discomfort. S/p Cardizem infusion, start Amio infusion per cardiology -hold home metoprolol, on 50 mg b.i.d. at home -ECHO showed normal EF with indeterminate diastolic dysfunction, TSH wnl -For PRIYA/Cardioversion -continue monitoring on telemetry cardiology following (2) Pneumonia: Qualifiers: Pneumonia type: due to unspecified organism Laterality: bilateral Lung location: unspecified part of lung Qualified Code(s): J18.9 - Pneumonia, unspecified organism Code(s): J18.9 - Pneumonia, unspecified organism Status: Acute Assessment and Plan: Patient reporting congestion. CXR and CT concerning for inflammatory/infectious process. No leukocytosis. However continues to have some upper back pain despite reduction in heart rate. Has had some improvement in shortness of breath with reduction in heart rate, however still experiencing some mild dyspnea. -viral PCR negative -continue ceftriaxone and doxycycline on 05/28 -supportive care: Mucinex, Tylenol, Tessalon Perles -encourage IS (3) Elevated troponin: Code(s): R79.89 - Other specified abnormal findings of blood chemistry Status: Acute Assessment and Plan: Likely demand, no chest pain at bedside Troponin flat ECHO no regional wall motion abnormalities, EF normal non invasive evaluation planned Cardiology following (4) CHF (congestive heart failure): Qualifiers: Heart failure chronicity: acute on chronic Heart failure type: right-sided Qualified Code(s): I50.813 - Acute on chronic right heart failure Code(s): I50.9 - Heart failure, unspecified Status: Acute Assessment and Plan: Contineu home lasix 20mg and Jardiance 25mg daily ECHO reviewed Cardiology following (5) Stage 4 chronic kidney disease: Code(s): N18.4 - Chronic kidney disease, stage 4 (severe) Status: Acute Assessment and Plan: Creatinine 1.75, BUN 33, GFR 27 upon admission on 04/10/2028. Reviewed previous lab work, range in 2023 was highly variable. Patient had values between 0.9 and 2.1. More recently 1.4-1.5. History of CKD stage 4. -trend renal function -trend electrolytes, correct as needed (6) Type 2 diabetes mellitus with diabetic chronic kidney disease: Qualifiers: Diabetes mellitus termite treater helper insulin use: with termite treater helper use Chronic kidney disease stage: stage 4 (GFR 15-29) Qualified Code(s): E11.22 - Type 2 diabetes mellitus with diabetic chronic kidney disease; N18.4 - Chronic kidney disease, stage 4 (severe); Z79.4 - custodial (current) use of insulin Code(s): E11.22 - Type 2 diabetes mellitus with diabetic chronic kidney disease Status: Acute Assessment and Plan: History of type 2 diabetes on chronic insulin with associated CKD stage IV. Initial glucose 158, stable. - hypoglycemia protocol - POC blood glucose ACHS - home medication: Continue Lantus 25 units HS, pharmacist to adjust. Hold on sliding scale. Continue Jardiance. - correct regimen ordered - low/high dose TIDWM - A1C 6.5% on 12/17/2024 (7) Anemia: Qualifiers: Anemia type: unspecified type Qualified Code(s): D64.9 - Anemia, unspecified Code(s): D64.9 - Anemia, unspecified Status: Acute Assessment and Plan: Hb 10.7 -transfuse if less than 7 -monitor (8) HTN (hypertension): Qualifiers: Hypertension type: essential hypertension Qualified Code(s): I10 - Essential (primary) hypertension Code(s): I10 - Essential (primary) hypertension Status: Chronic Assessment and Plan: -chronic, currently 119/80, stable. -hold home metoprolol, currently on diltiazem drip -monitor (9) Hyperlipidemia: Qualifiers: Hyperlipidemia type: unspecified Qualified Code(s): E78.5 - Hyperlipidemia, unspecified Code(s): E78.5 - Hyperlipidemia, unspecified Status: Chronic Assessment and Plan: -continue simvastatin 40 mg HS Plan Diet: Heart healthy DVT Prophylaxis: Lovenox SQ Code Status: Full code Subjective Date/time seen: 05/30/25 16:33 Interval history: Comfortable at bedside HR still in 120s Review of Systems Review of Systems: All systems reviewed & are unremarkable except as noted in HPI and below Exam Const: General: comfortable and no acute distress Other: , female, elderly, nontoxic appearance HENMT: Face/Nose/Sinus: Normal nares present Mouth: Yes moist mucous membranes Eyes: General: appearance normal, both eyes and all related structures Sclera: sclerae normal Pupils: Equal, round and reactive pupils present EOM: EOMs intact bilaterally Resp: Effort & Inspection: normal respiratory effort Auscultation: clear to auscultation bilaterally Cardio: Rate: tachycardic Rhythm: abnormal rhythm Other: Rhythm/rate consistent with AFib RVR. No murmur appreciated. GI: Other: Abdomen soft, nondistended, nontender. Normoactive bowel sounds in all quadrants. Skin: General skin exam: normal color and no rashes or lesions noted Wounds: no wounds Neuro: Cranial nerves: Yes Equal, round and reactive pupils present Speech: normal speech Motor exam (neuro): 5/5 motor strength present throughout Sensory Exam: normal sensation Other: A&O x4 Extrem: General: normal to inspection Psych: Mental Status: mental status grossly normal Affect: normal affect Other: Good insight and judgment, pleasant Objective Data Vital Signs Vital Signs: Vital Signs - 24 hr 05/29/25 18:00 05/29/25 18:00 05/29/25 18:15 Temperature 98.4 F Pulse Rate 119 H 137 H 128 H Respiratory Rate 20 Blood Pressure 126/70 126/70 Pulse Oximetry 96 Oxygen Delivery 05/29/25 20:00 05/29/25 20:00 05/29/25 20:00 Temperature 98.4 F Pulse Rate 128 H 132 H 132 H Respiratory Rate 18 18 Blood Pressure 135/62 Pulse Oximetry 100 100 Oxygen Delivery Room Air 05/29/25 20:00 05/29/25 22:00 05/29/25 22:00 Temperature Pulse Rate 132 H 124 H 124 H Respiratory Rate Blood Pressure 135/62 122/57 L 122/57 L Pulse Oximetry 97 Oxygen Delivery 05/29/25 22:00 05/29/25 23:57 05/30/25 00:00 Temperature 98.0 F Pulse Rate 124 H 135 H 122 H Respiratory Rate 18 18 Blood Pressure 125/63 Pulse Oximetry 98 98 Oxygen Delivery Room Air 05/30/25 00:00 05/30/25 00:00 05/30/25 02:00 Temperature Pulse Rate 122 H 122 H 119 H Respiratory Rate Blood Pressure 125/63 Pulse Oximetry Oxygen Delivery 05/30/25 02:00 05/30/25 02:00 05/30/25 02:22 Temperature Pulse Rate 119 H 119 H 122 H Respiratory Rate 20 Blood Pressure 119/60 119/60 119/60 Pulse Oximetry Oxygen Delivery 05/30/25 02:22 05/30/25 04:00 05/30/25 04:00 Temperature Pulse Rate 122 H 126 H 126 H Respiratory Rate 20 Blood Pressure 119/60 Pulse Oximetry 98 Oxygen Delivery Room Air 05/30/25 04:00 05/30/25 04:29 05/30/25 05:45 Temperature 97.9 F Pulse Rate 126 H 131 H 116 H Respiratory Rate 18 Blood Pressure 129/69 129/69 Pulse Oximetry 97 Oxygen Delivery 05/30/25 05:50 05/30/25 05:51 05/30/25 07:44 Temperature 98.5 F Pulse Rate 116 H 116 H 141 H Respiratory Rate 18 20 Blood Pressure 130/72 130/72 135/51 L Pulse Oximetry 98 96 Oxygen Delivery 05/30/25 08:00 05/30/25 08:00 05/30/25 08:00 Temperature Pulse Rate 156 H 145 H Respiratory Rate Blood Pressure 135/51 L Pulse Oximetry Oxygen Delivery Room Air 05/30/25 09:31 05/30/25 09:39 05/30/25 10:00 Temperature 98.1 F Pulse Rate 130 H 140 H 123 H Respiratory Rate 20 Blood Pressure 135/51 L 123/63 Pulse Oximetry 98 Oxygen Delivery 05/30/25 10:00 05/30/25 10:00 05/30/25 11:41 Temperature Pulse Rate 136 H 132 H 137 H Respiratory Rate Blood Pressure 123/63 123/63 Pulse Oximetry Oxygen Delivery 05/30/25 11:41 05/30/25 11:44 05/30/25 12:00 Temperature 98.2 F Pulse Rate 137 H 130 H Respiratory Rate 20 Blood Pressure 123/63 122/57 L Pulse Oximetry 99 Oxygen Delivery Room Air 05/30/25 12:00 05/30/25 14:00 05/30/25 15:10 Temperature Pulse Rate 127 H 133 H 134 H Respiratory Rate Blood Pressure 122/57 L 133/54 L Pulse Oximetry Oxygen Delivery 05/30/25 15:11 05/30/25 15:51 05/30/25 16:00 Temperature 98.2 F Pulse Rate 139 H 127 H 122 H Respiratory Rate 20 Blood Pressure 121/70 121/70 Pulse Oximetry 99 Oxygen Delivery Intake/Output Intake/Output: Intake & Output 05/27/25 05/28/25 05/29/25 05/30/25 23:59 23:59 23:59 23:59 Intake Total 2113.4 2186.1 1263.5 Output Total 750 1100 700 Balance 1363.4 1086.1 563.5 Meds/Results Medications: Active Medications Generic Name Dose Route Start Last Admin Trade Name Freq PRN Reason Stop Dose Admin Acetaminophen 500 mg 05/28/25 12:52 Acetaminophen 500 Mg Tablet PO Q6H PRN Pain (Scale Score 1-3) Allopurinol 200 mg 05/29/25 09:00 05/30/25 09:34 Allopurinol 100 Mg Tablet PO 200 mg DAILY MELANIE Administration Apixaban 2.5 mg 05/30/25 09:55 05/30/25 11:41 Apixaban 2.5 Mg Tablet PO 2.5 mg Q12HR MELANIE Administration Benzonatate 100 mg 05/28/25 13:38 Benzonatate 100 Mg Capsule PO TID PRN Cough Bisacodyl 10 mg 05/28/25 12:52 Bisacodyl 10 Mg Suppository RECTAL DAILY PRN Constipation Calcium Carbonate 500 mg 05/28/25 17:00 05/30/25 09:34 Calcium Carbonate (Oscal) 500 Mg Tablet PO 06/27/25 16:59 500 mg BID MELANIE Administration Dextrose 12.5 gm 05/28/25 12:54 Dextrose 50% 25 Gm/50 Ml Syringe IV PUSH PRN PRN Hypoglycemia Protocol Ezetimibe 10 mg 05/29/25 09:00 05/30/25 09:34 Ezetimibe 10 Mg Tablet PO 10 mg DAILY MELANIE Administration Empagliflozin 25 mg 05/29/25 09:00 05/30/25 09:34 Empagliflozin 25 Mg Tablet PO 25 mg DAILY MELANIE Administration Ergocalciferol 1,250 mcg 05/28/25 13:15 05/28/25 14:36 Ergocalciferol (Vitamin D2) 1,250 Mcg (50,000 Units) Capsule PO 1,250 mcg Tu@0900 MELANIE Administration Ferrous Sulfate 325 mg 05/29/25 08:00 05/30/25 09:34 Ferrous Sulfate 325 Mg Tablet PO 325 mg DAILY@0800 MELANIE Administration Fluticasone Propionate 1 spray 05/28/25 12:55 05/30/25 09:35 Fluticasone Propionate 0.05% Na Spr 16 Gm Btl (*Bkc) NASAL 1 spray Q12HR MELANIE Administration Furosemide 20 mg 05/29/25 09:00 05/30/25 09:34 Furosemide 20 Mg Tablet PO 20 mg QAM MELANIE Administration Glucagon 1 mg 05/28/25 12:54 Glucagon For Inj 1 Mg Vial IM PRN PRN Hypoglycemia Protocol Glucose 15 gm 05/28/25 12:54 Glucose Oral Gel 15 Gm Of Glucse In 37.5 Gm Tube PO PRN PRN Hypoglycemia Protocol Guaifenesin 600 mg 05/28/25 21:00 05/30/25 09:34 Guaifenesin 12 Hr 600 Mg Tabcr PO 600 mg Q12HR MELANIE Administration Azithromycin 500 mg/ Sodium 250 mls @ 250 mls/hr 05/28/25 12:55 05/30/25 09:24 Chloride IVPB 06/01/25 09:59 250 mls/hr QAM MELANIE Administration Dextrose 1,000 mls @ 100 mls/hr 05/28/25 12:54 Dextrose 5% 1,000 Ml IVPB PRN PRN Hypoglycemia Protocol Doxycycline Hyclate 100 mg/ 100 mls @ 100 mls/hr 05/29/25 09:00 05/30/25 09:25 Sodium Chloride IVPB 06/02/25 09:59 100 mls/hr Q12HR MELANIE Administration Amiodarone HCl/Dextrose 360 mg in 200 mls @ 33.333 mls/hr 05/29/25 15:10 05/30/25 16:00 Nexterone 360 Mg/D5w 200 Ml IV CONT 1 mg/min .Q6H MELANIE 33.33 mls/hr 1 MG/MIN Infusion Insulin Aspart 2 - 5 units 05/28/25 17:00 05/30/25 11:44 Insulin Aspart (*Bkc) 100 Units/Ml SUB-Q 3 units TIDWM MELANIE Administration Protocol Insulin Glargine 20 units 05/28/25 21:00 05/29/25 21:13 Insulin Glargine (*Bkc) 100 Units/Ml SUB-Q 20 units HS MELANIE Administration Lidocaine 1 patch 05/29/25 09:00 05/30/25 09:38 Lidocaine 5% Patch TRANSDERM 1 patch DAILY MELANIE Administration Magnesium Oxide 400 mg 05/29/25 09:00 05/30/25 09:34 Magnesium Oxide 400 Mg Tablet PO 400 mg DAILY MELANIE Administration Metoprolol Tartrate 5 mg 05/30/25 13:16 05/30/25 15:11 Metoprolol Tartrate Inj 5 Mg/5 Ml Vial IV PUSH 5 mg Q6HR PRN Administration tachycardia Metoprolol Tartrate 25 mg 05/30/25 13:55 05/30/25 15:10 Metoprolol Tartrate 25 Mg Tablet PO 25 mg Q6HR MELANIE Administration Multivitamins/Minerals 1 tab 05/29/25 09:00 05/30/25 09:34 Multivitamins /C Lutein (Centrum Silver) Tablet *Bkc PO 06/28/25 08:59 1 tab DAILY MELANIE Administration Pantoprazole Sodium 40 mg 05/29/25 09:00 05/30/25 09:34 Pantoprazole 40 Mg Tablet PO 06/28/25 08:59 40 mg DAILY MELANIE Administration Perflutren Lipid Microsphere 0 ml 05/28/25 15:00 Perflutren Lipid Microspheres 1.5 Ml Vial Diluted To 10 Ml Total Volume IV PUSH 05/31/25 15:01 ONCE PRN adequate visualization Protocol Selenium Sulfide 1 applic 05/29/25 09:00 05/29/25 10:02 Selenium Sulfide 1% Shampoo 207 Ml TOPICAL Not Given [id number] MELANIE Simvastatin 40 mg 05/28/25 21:00 05/29/25 21:12 Simvastatin 20 Mg Tablet PO 40 mg HS MELANIE Administration Tramadol HCl 50 mg 05/28/25 13:00 05/30/25 13:32 Tramadol Hcl (*Crx) 50 Mg Tablet PO 50 mg QID MELANIE Administration Trazodone HCl 50 mg 05/28/25 21:00 05/29/25 21:12 Trazodone Hcl 50 Mg Tablet PO 50 mg QHS MELANIE Administration Radiology Results: ITS Impressions Chest X-Ray 05/28/25 10:08 IMPRESSION: Small opacities in the mid and lower lungs, greater on the left, which likely represents atelectasis or inflammatory/infectious process. Recommend follow-up to resolution to exclude underlying nodule. Consider a chest CT. Probable large hiatal hernia. If symptoms persist or worsen, consider a short-term follow-up study or additional imaging for further assessment. Chest CT 05/28/25 10:47 IMPRESSION: 1. There are a few reticular, bandlike and groundglass opacities in the mid and lower lungs. In addition, there are a few small patchy consolidations in the left lower lung. Differential includes atelectasis/scarring and/or an inflammatory/infectious process. 2. Moderate-sized hiatal hernia. Labs Labs: Laboratory Results - last 24 hr 05/29/25 05/30/25 05/30/25 20:30 03:45 07:22 WBC 5.3 RBC 3.32 L Hgb 10.7 L Hct 33.9 L MCV 102.1 H MCH 32.2 MCHC 31.6 L RDW 15.1 H Plt Count 159 MPV 9.0 Immature Gran % (Auto) 0.6 H Neut % (Auto) 61.0 Lymph % (Auto) 27.5 [place] % (Auto) 7.7 Eos % (Auto) 2.8 Baso % (Auto) 0.4 Lymph # (Auto) 1.47 [place] # (Auto) 0.4 Eos # (Auto) 0.2 Baso # (Auto) 0.0 Abs Immat Gran (auto) 0.03 Absolute Neuts (auto) 3.3 Absolute Nucleated RBC 0.000 Nucleated RBC % 0.0 Sodium 137 Potassium 3.7 Chloride 99 Carbon Dioxide 28 Anion Gap 10 BUN 35 H Creatinine 1.75 H Estim Creat Clear Calc 20 Estimated GFR 27 L Glucose 146 H POC Capillary Glucose 215 H 155 H Calcium 8.9 Magnesium 1.8 Total Bilirubin 0.3 AST 28 ALT 14 Alkaline Phosphatase 77 Total Protein 6.2 L Albumin 3.6 05/30/25 05/30/25 11:07 15:35 WBC RBC Hgb Hct MCV MCH MCHC RDW Plt Count MPV Immature Gran % (Auto) Neut % (Auto) Lymph % (Auto) [place] % (Auto) Eos % (Auto) Baso % (Auto) Lymph # (Auto) [place] # (Auto) Eos # (Auto) Baso # (Auto) Abs Immat Gran (auto) Absolute Neuts (auto) Absolute Nucleated RBC Nucleated RBC % Sodium Potassium Chloride Carbon Dioxide Anion Gap BUN Creatinine Estim Creat Clear Calc Estimated GFR Glucose POC Capillary Glucose 251 H 124 H Calcium Magnesium Total Bilirubin AST ALT Alkaline Phosphatase Total Protein Albumin Quality VTE Prophylaxis VTE prophylaxis: pharmacologic ordered
[2025-05-30] MEDS: SIMVASTATIN 20 MG TABLET 40 MG PO (20:35)
[2025-05-30] MEDS: INSULIN GLARGINE (*BKC) 100 UNITS/ML 20 UNITS SUB-Q (20:36)
[2025-05-31] VITALS (26 sets, daily range): BP systolic 102–144; BP diastolic 45–91; PULSE 59–112; RESP 14–20; TEMP 36.4–36.6; O2SAT 92–100
--- NOTE | 2025-05-31 | ECHO_ITS ---
Patient Info Name: Elizabeth Negron Age: 89 years : 1935 Gender: Female Ht: 67 in HR: 108 bpm BP: 105 / 50 mmHg Heart Rhythm: Atrial Fibrillation Technical Quality: Good Exam Date: 05/31/2025 11:10 AM Patient Status: I Admit Date: 05/29/2025 Exam Type: CA echo transesophageal Complete two-dimensional, color flow and Doppler transesophageal study is performed. Staff Referring Physician: Michael Ashraf [employer] Agent: Sukhwinder Salinas III Attending Provider: Joni Mckeon MD Summary 1. Limited transesophageal echo performed prior to cardioversion. 2. Left atrium is dilated but no thrombus noted in the atrium or in the appendage. Left Ventricle Left ventricular chamber dimension is normal. Right Ventricle Right ventricular chamber dimension is normal. Left Atria Left atrial chamber dimension is severely enlarged. Right Atria Right atrial chamber dimension is normal. Atrial Appendage There is no thrombus visualized in the left atrial appendage. Aortic Valve The aortic valve is trileaflet. There is mild aortic valve sclerosis. Pulmonic Valve The pulmonic valve is not well visualized. Mitral Valve The mitral valve has normal leaflets. There is mild mitral valve regurgitation. Tricuspid Valve The tricuspid valve leaflets are normal. Pericardium/Pleural The pericardium appears normal. Aorta The aortic root size at the sinus of Valsalva is not well visualized. Report Signatures
[2025-05-31 04:18] LABS: Hematocrit 33.7 % (37.0-47.0); Hemoglobin 10.9 g/dL (12.0-15.0); Immature Granulocyte Percent A 0.3 % (0-0.5); Lymphocytes Absolute Auto 1.47 K/mm3 (0.9-3.2); Mean Corpuscular HGB Conc 32.3 g/dl (32-36); Mean Corpuscular Hemoglobin 33.0 pg (26-34); Mean Corpuscular Volume 102.1 fl (80-100); Nucleated Red Blood Cells Absolute Auto 0.000 K/mm3 (0.0-0.012); Nucleated Red Blood Cells Perc 0.0 % (0.0-0.2); Platelet Count Result 153 k/mm3 (150-375); Red Blood Count 3.30 M/mm3 (4.2-5.4); White Blood Count 6.1 K/mm3 (4.5-10.0)
[2025-05-31 04:30] LABS: Alanine Aminotransferase 15 U/L (6-35); Albumin Level 3.6 g/dL (3.5-5.1); Alkaline Phosphatase 69 U/L (38-126); Anion Gap 7 mmol/L (4-12); Aspartate Amino Transferase 35 U/L (14-36); Bilirubin,Total 0.3 mg/dL (0.2-1.3); Blood Urea Nitrogen 38 mg/dL (7-17); Calcium 9.0 mg/dL (8.4-10.2); Carbon Dioxide 29 mmol/L (22-30); Chloride 99 mmol/L (98-107); Estimated CRCL calculation 23 ml/min; Estimated Glomerular Filt Rate 34; Glucose 137 mg/dL (65-110); Magnesium 1.7 mg/dL (1.6-2.3); Potassium 4.0 mmol/L (3.4-5.0); Sodium 135 mmol/L (137-145); Total Protein 6.2 g/dL (6.3-8.2)
[2025-05-31] MEDS: METOPROLOL TARTRATE 25 MG TABLET PO ×3 (06:01→16:59)
[2025-05-31] MEDS: LIDOCAINE 5% PATCH 1 PATCH TRANSDERM (08:32)
[2025-05-31] MEDS: EMPAGLIFLOZIN 25 MG TABLET PO (08:33)
[2025-05-31] MEDS: FERROUS SULFATE 325 MG TABLET PO (08:33)
[2025-05-31] MEDS: MULTIVITAMINS /C LUTEIN (CENTRUM SILVER) TABLET *BKC 1 TAB PO (08:33)
[2025-05-31] MEDS: PANTOPRAZOLE 40 MG TABLET PO (08:33)
[2025-05-31] MEDS: guaiFENesin 12 HR 600 MG TABCR PO ×2 (08:33→21:09)
[2025-05-31] MEDS: APIXABAN 2.5 MG TABLET PO ×2 (08:33→21:10)
[2025-05-31] MEDS: FUROSEMIDE 20 MG TABLET PO (08:34)
[2025-05-31] MEDS: traMADol HCL (*CRX) 50 MG TABLET PO ×4 (08:34→21:09)
[2025-05-31] MEDS: CALCIUM CARBONATE (OSCAL) 500 MG TABLET PO ×2 (08:34→16:59)
[2025-05-31] MEDS: EZETIMIBE 10 MG TABLET PO (08:34)
[2025-05-31] MEDS: DOXYCYCLINE IV 100 MG in SODIUM CHLORIDE 0.9% IV 100 ML IVPB (08:35)
[2025-05-31] MEDS: AZITHROMYCIN IV 500 MG in SODIUM CHLORIDE 0.9% IV 250 ML IVPB (08:37)
[2025-05-31] MEDS: FLUTICASONE PROPIONATE 0.05% NA SPR 16 GM BTL (*BKC) 1 SPRAY NASAL ×2 (08:56→21:10)
[2025-05-31] MEDS: MAGNESIUM OXIDE 400 MG TABLET PO (08:58)
--- NOTE | 2025-05-31 10:15 | ECG_ITS ---
Test Date: 2025-05-31 10:31:30 Measurements Intervals [place] Rate: 100 P: 0 [place]: 0 QRS: 109 QRSD: 145 T: 34 QT: 401 QTc: 519 Interpretive Statements ATRIAL FIBRILLATION WITH RAPID VENTRICULAR RESPONSE RIGHT AXIS DEVIATION RIGHT BUNDLE BRANCH BLOCK ABNORMAL ECG Compared to ECG 05/28/2025 10:01:51 No significant changes Electronically Signed On 05-31-2025 10:53:29 CDT by Zackery Caldera D.O.
--- NOTE | 2025-05-31 11:06 | WPDMODSED ---
Moderate Sedation Note-Pt Data Patient Data Diagnosis: Atrial fibrillation with recent onset Present Complaint: Palpitation Procedure to be performed/Plan: Carmine/cardioversion Allergies Allergy/AdvReac Type Severity Reaction Status Date / Time atorvastatin Allergy Unknown Unknown Verified 05/28/25 12:04 glyburide Allergy Unknown Unknown Verified 05/28/25 12:04 influenza A (H1N1) virus Allergy Unknown Swelling Verified 05/28/25 12:04 vaccine [id number] 2008 of Lip/Tongue/Throat Influenza Virus Vaccines Allergy Unknown Swelling Verified 05/28/25 12:04 of Lip/Tongue/Throat phenobarbital AdvReac Mild Hallucinati Verified 05/28/25 12:04 ng Home Medications ?Medication ?Instructions ?Recorded ?Confirmed ?Type simvastatin 40 mg tablet 40 mg PO HS 12/12/20 05/28/25 History calcium carbonate 600 mg PO BID 04/15/22 05/28/25 History ezetimibe 10 mg tablet 10 mg PO DAILY #90 tabs 04/23/22 05/28/25 Rx furosemide 20 mg tablet 20 mg PO QAM #90 tabs 11/02/22 05/28/25 Rx bisacodyl 10 mg rectal suppository 10 mg RECTAL DAILY PRN Constipation 01/08/23 05/28/25 History cholecalciferol (vitamin D3) 1,250 1,250 mcg PO WEEKLY 01/08/23 05/28/25 History mcg (50,000 unit) capsule acetaminophen 500 mg capsule 500 mg PO Q6H PRN Pain (Scale 04/21/23 05/28/25 History Score 1-3) multivitamin with minerals-folic 1 tablet PO DAILY 04/21/23 05/28/25 History acid 12 mcg chewable tablet (Centrum Adults) metoprolol tartrate 50 mg tablet 50 mg PO Q12H #180 tabs 08/18/23 05/28/25 Rx diaper,brief,adult,disposable #120 ea 10/12/23 05/28/25 Rx (Depend Easy Fit Undergarments misc) glucose 4 gram chewable tablet 4 g PO Q15M PRN hypoglycemia #7 10/12/23 05/28/25 Rx (Dex4 Glucose) tabs magnesium oxide 400 mg PO DAILY 10/24/23 05/28/25 History trazodone 50 mg tablet 50 mg PO QHS #90 tabs 12/01/23 05/28/25 Rx ferrous sulfate 325 mg (65 mg 325 mg PO DAILY #30 tabs 03/22/24 05/28/25 Rx iron) tablet (FeroSul) omeprazole 20 mg capsule,delayed 20 mg PO DAILY #90 caps 05/10/24 05/28/25 Rx release empagliflozin 25 mg tablet 25 mg PO DAILY #90 tabs 06/07/24 05/28/25 Rx (Jardiance) insulin lispro 100 unit/mL See Rx Instructions subcut TID 06/07/24 05/28/25 Rx subcutaneous pen (Humalog KwikPen with meals #15 mL (U-100) Insulin) pen needle, diabetic, safety 30 #100 ea 06/19/24 05/28/25 Rx gauge x 1/3 allopurinol 100 mg tablet 200 mg (2 x 100 mg) PO DAILY #180 12/27/24 05/28/25 Rx tabs blood sugar diagnostic (Contour #100 ea 02/18/25 05/28/25 Rx Next Test Strips) blood-glucose meter (Contour Next #1 ea 02/18/25 05/28/25 Rx Gen Meter kit) fluticasone propionate 50 See Rx Instructions .Route 05/08/25 05/28/25 Rx mcg/actuation nasal .COMPLEX #16 grams spray,suspension tramadol 50 mg tablet 50 mg PO QID #120 tabs 05/09/25 05/28/25 Rx ketoconazole 2 % shampoo 1 applic topical 3XW #120 mL 05/20/25 05/28/25 Rx insulin glargine 100 unit/mL 25 unit subcut HS 05/28/25 05/28/25 History subcutaneous solution (Lantus U-100 Insulin) Current Medications: Active Medications Acetaminophen (Acetaminophen 500 Mg Tablet) 500 mg PO Q6H PRN PRN Reason: Pain (Scale Score 1-3) Allopurinol (Allopurinol 100 Mg Tablet) 200 mg PO DAILY MELANIE Last Admin: 05/31/25 08:30 Dose: 200 mg Apixaban (Apixaban 2.5 Mg Tablet) 2.5 mg PO Q12HR MELANIE Last Admin: 05/31/25 08:33 Dose: 2.5 mg Benzonatate (Benzonatate 100 Mg Capsule) 100 mg PO TID PRN PRN Reason: Cough Bisacodyl (Bisacodyl 10 Mg Suppository) 10 mg RECTAL DAILY PRN PRN Reason: Constipation Calcium Carbonate (Calcium Carbonate (Oscal) 500 Mg Tablet) 500 mg PO BID [facility] Stop: 06/27/25 16:59 Last Admin: 05/31/25 08:34 Dose: 500 mg Dextrose (Dextrose 50% 25 Gm/50 Ml Syringe) 12.5 gm IV PUSH PRN PRN; Protocol PRN Reason: Hypoglycemia Ezetimibe (Ezetimibe 10 Mg Tablet) 10 mg PO DAILY [facility] Last Admin: 05/31/25 08:34 Dose: 10 mg Empagliflozin (Empagliflozin 25 Mg Tablet) 25 mg PO DAILY [facility] Last Admin: 05/31/25 08:33 Dose: 25 mg Ergocalciferol (Ergocalciferol (Vitamin D2) 1,250 Mcg (50,000 Units) Capsule) 1,250 mcg PO Tu@0900 [facility] Last Admin: 05/28/25 14:36 Dose: 1,250 mcg Ferrous Sulfate (Ferrous Sulfate 325 Mg Tablet) 325 mg PO DAILY@0800 [facility] Last Admin: 05/31/25 08:33 Dose: 325 mg Fluticasone Propionate (Fluticasone Propionate 0.05% Na Spr 16 Gm Btl (*Bkc)) 1 spray NASAL Q12HR [facility] Last Admin: 05/31/25 08:56 Dose: 1 spray Furosemide (Furosemide 20 Mg Tablet) [facility] [place] Admin: 05/31/25 08:34 Dose: 20 mg Glucagon (Glucagon For Inj 1 Mg Vial) 1 mg IM PRN PRN; Protocol PRN Reason: Hypoglycemia Glucose (Glucose Oral Gel 15 Gm Of Glucse In 37.5 Gm Tube) 15 gm PO PRN PRN; Protocol PRN Reason: Hypoglycemia Guaifenesin (Guaifenesin 12 Hr 600 Mg Tabcr) 600 mg PO Q12HR [facility] Last Admin: 05/31/25 08:33 Dose: 600 mg Azithromycin 500 mg/ Sodium (Chloride) 250 mls @ 250 mls/hr IVPB QAM [facility] Stop: 06/01/25 09:59 Last Admin: 05/31/25 08:37 Dose: 250 mls/hr Dextrose (Dextrose 5% 1,000 Ml) 1,000 mls @ 100 mls/hr IVPB PRN PRN; Protocol PRN Reason: Hypoglycemia Doxycycline Hyclate 100 mg/ (Sodium Chloride) 100 mls @ 100 mls/hr IVPB Q12HR MELANIE Stop: 06/02/25 09:59 Last Admin: 05/31/25 08:35 Dose: 100 mls/hr Amiodarone HCl/Dextrose (Nexterone 360 Mg/D5w 200 Ml) 360 mg in 200 mls @ 33.333 mls/hr IV CONT .Q6H MELANIE Last Infusion: 05/31/25 06:00 Dose: 1 mg/min, 33.33 mls/hr Insulin Aspart (Insulin Aspart (*Bkc) 100 Units/Ml) 2 - 5 units SUB-Q TIDWM [facility]; Protocol Last Admin: 05/30/25 17:25 Dose: Not Given Insulin Glargine (Insulin Glargine (*Bkc) 100 Units/Ml) 20 units SUB-Q HS [facility] Last Admin: 05/30/25 20:36 Dose: 20 units Lidocaine (Lidocaine 5% Patch) 1 patch TRANSDERM DAILY [facility] Last Admin: 05/31/25 08:32 Dose: 1 patch Magnesium Oxide (Magnesium Oxide 400 Mg Tablet) 400 mg PO DAILY [facility] Last Admin: 05/31/25 08:58 Dose: 400 mg Metoprolol Tartrate (Metoprolol Tartrate Inj 5 Mg/5 Ml Vial) 5 mg IV PUSH Q6HR PRN PRN Reason: tachycardia Last Admin: 05/30/25 15:11 Dose: 5 mg Metoprolol Tartrate (Metoprolol Tartrate 25 Mg Tablet) 25 mg PO Q6HR [facility] Last Admin: 05/31/25 06:01 Dose: 25 mg Multivitamins/Minerals (Multivitamins /C Lutein (Centrum Silver) Tablet *Bkc) 1 tab PO DAILY MELANIE Stop: 06/28/25 08:59 Last Admin: 05/31/25 08:33 Dose: 1 tab Pantoprazole Sodium (Pantoprazole 40 Mg Tablet) 40 mg PO DAILY [facility] Stop: 06/28/25 08:59 Last Admin: 05/31/25 08:33 Dose: 40 mg Perflutren Lipid Microsphere (Perflutren Lipid Microspheres 1.5 Ml Vial Diluted To 10 Ml Total Volume) 0 ml IV PUSH ONCE PRN; Protocol PRN Reason: adequate visualization Stop: 05/31/25 15:01 Selenium Sulfide (Selenium Sulfide 1% Shampoo 207 Ml) 1 applic TOPICAL MoWeFr@0900 [facility] Last Admin: 05/29/25 10:02 Dose: Not Given Simvastatin (Simvastatin 20 Mg Tablet) 40 mg PO HS [facility] Last Admin: 05/30/25 20:35 Dose: 40 mg Tramadol HCl (Tramadol Hcl (*Crx) 50 Mg Tablet) 50 mg PO QID [facility] Last Admin: 05/31/25 08:34 Dose: 50 mg Trazodone HCl (Trazodone Hcl 50 Mg Tablet) 50 mg PO QHS [facility] Last Admin: 05/30/25 20:36 Dose: 50 mg Sedation/Anesthesia: No previous sedation/anesthesia problems (including family history). [facility] Past Medical History Medical History (Updated 05/28/25 @ 17:46 by Michael Ashraf MD) Stage 4 chronic kidney disease Anemia History of blood transfusions. Hiatal hernia with GERD Graham lesion, acute (12/2022) Type 2 diabetes mellitus 6.5% 11/2024 Stenosis of right internal carotid artery 51% stenosis of the proximal right ICA on CTA in December 2021. Peripheral vascular disease Severe pulmonary hypertension Hypertension Acute kidney injury superimposed on CKD AVM (arteriovenous malformation) of colon with hemorrhage Acute on chronic blood loss anemia Hematochezia Paroxysmal atrial fibrillation Coffee ground emesis GI bleed Seborrheic dermatitis Hearing loss, bilateral Encounter for other specified surgical aftercare Diabetic foot infection Trigger finger of both hands Primary osteoarthritis of both knees Aortic valve stenosis [id number] aortic valve stenosis on echocardiogram in April 2021 with a valve area of 1.1 to 1.5 centimeter squared. Closed fracture of left great toe Cellulitis of second toe, right Cellulitis of foot, left Diastolic congestive heart failure Echocardiogram on 12/13/2020 showed normal left ventricular size with moderate consent of left ventricular hypertrophy with overall good left ventricular systolic function with an EF measuring 62%. There was hypokinesis of the basal inferoseptal segment as well as grade 1 diastolic dysfunction with moderately enlarged left atrial chamber and atrial septal aneurysm. 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) Left 5th toe History of toe surgery History of inguinal hernia repair (~2017) History of hysterectomy History of bilateral cataract extraction (~2016) History of rectal polypectomy History of colon resection (~2017) Fracture of right hip requiring operative repair (~2017) History of appendectomy Family History Family History Sibling Carcinoma of colon Father Black lung disease Heart disease Hypertension Mother Hypertension Other Diabetes mellitus Family history of arthritis Family history of gout Family history of heart disease in male family member before age 55 Family history of kidney disease Social History Social History Social History: Patient has been had acute rehab since her arterial stent placement in October 2022. She plans to return to [facility]. She reports that she has been multiple times. She her 2nd twice before he of complications of colon cancer. 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 Lifelong nonsmoker. No alcohol or illicit substance use. She designates her son, Ag Marrero, as her surrogate decision maker and she wishes to be a full code. She had 2 sons Justin and Ag. However, Hal is disabled due to multiple strokes. Code status: Full code Smoking status: Never smoker Second hand tobacco smoke exposure: No Alcohol intake: never Substance use: never Substance use type: does not use Do You Feel Safe in your Home?: Yes Lack of Transportation: No Lack of Food: Never True Current Housing: I Have Housing Concerned About Future Housing: No Difficulty Paying Gas/Electric Bills: No Difficulty Paying for Meds: No Currently Unemployed: No Education: Decline to Answer Difficulty w/ Childcare or Family Care: No Living arrangements: assisted living Occupation/Education: retired Gender identity (if verbalized by the patient): Female Sexual Orientation (if Verbalized by the Patient): Straight or Heterosexual Spiritual care concerns: No Mod Sed Physical Exam Physical Exam Pre Procedural Exam: Normal: Appearance (Very pleasant elderly lady no distress), Throat, Airway, Lungs, Heart Size, Neuro Exam and Extremities and Variation: Heart Rate (Heart rate 105 irregularly irregular) and Heart Rhythm Hours since solid foods: 12 Hours since liquid intake: 12 Mallampati Classification: class II Internal Medicine - PN: Obj Da Vital Signs Vital Signs: Vital Signs - 24 hr 05/30/25 11:41 05/30/25 11:41 05/30/25 11:44 Temperature 36.8 C Pulse Rate 137 H 137 H 130 H Respiratory Rate 20 Blood Pressure 123/63 123/63 122/57 L Pulse Oximetry 99 Oxygen Delivery Oxygen Flow Rate 05/30/25 12:00 05/30/25 12:00 05/30/25 12:00 Temperature Pulse Rate 127 H 138 H Respiratory Rate Blood Pressure 122/57 L Pulse Oximetry Oxygen Delivery Room Air Oxygen Flow Rate 05/30/25 14:00 05/30/25 14:00 05/30/25 15:10 Temperature Pulse Rate 133 H 127 H 134 H Respiratory Rate Blood Pressure 133/54 L Pulse Oximetry Oxygen Delivery Oxygen Flow Rate 05/30/25 15:11 05/30/25 15:51 05/30/25 16:00 Temperature 36.8 C Pulse Rate 139 H 127 H 122 H Respiratory Rate 20 Blood Pressure 121/70 121/70 Pulse Oximetry 99 Oxygen Delivery Oxygen Flow Rate 05/30/25 16:00 05/30/25 16:00 05/30/25 17:41 Temperature Pulse Rate 122 H 126 H Respiratory Rate Blood Pressure 120/90 Pulse Oximetry Oxygen Delivery Room Air Oxygen Flow Rate 05/30/25 18:00 05/30/25 18:00 05/30/25 18:08 Temperature Pulse Rate 131 H 127 H 130 H Respiratory Rate Blood Pressure 120/66 Pulse Oximetry Oxygen Delivery Oxygen Flow Rate 05/30/25 18:09 05/30/25 19:48 05/30/25 20:00 Temperature 36.8 C Pulse Rate 126 H 112 H 112 H Respiratory Rate 18 18 Blood Pressure 120/90 110/62 Pulse Oximetry 98 98 Oxygen Delivery Room Air Oxygen Flow Rate 05/30/25 20:00 05/30/25 20:00 05/30/25 21:57 Temperature Pulse Rate 112 H 112 H 106 H Respiratory Rate Blood Pressure 110/62 114/57 L Pulse Oximetry 99 Oxygen Delivery Oxygen Flow Rate 05/30/25 22:00 05/30/25 22:00 05/30/25 23:07 Temperature Pulse Rate 118 H 118 H 117 H Respiratory Rate Blood Pressure 114/57 L Pulse Oximetry Oxygen Delivery Oxygen Flow Rate 05/30/25 23:07 05/30/25 23:07 05/30/25 23:46 Temperature 36.7 C Pulse Rate 111 H 111 H 111 H Respiratory Rate 16 Blood Pressure 113/92 H 113/92 H 113/92 H Pulse Oximetry 98 Oxygen Delivery Oxygen Flow Rate 05/31/25 00:00 05/31/25 00:00 05/31/25 00:16 Temperature Pulse Rate 108 H 108 H 108 H Respiratory Rate 16 Blood Pressure Pulse Oximetry 98 Oxygen Delivery Room Air Oxygen Flow Rate 05/31/25 02:00 05/31/25 02:00 05/31/25 02:00 Temperature Pulse Rate 110 H 110 H 110 H Respiratory Rate 18 Blood Pressure 102/57 L 102/57 L Pulse Oximetry Oxygen Delivery Oxygen Flow Rate 05/31/25 04:00 05/31/25 04:00 05/31/25 04:49 Temperature Pulse Rate 107 H 107 H 108 H Respiratory Rate 18 Blood Pressure 120/60 Pulse Oximetry 97 Oxygen Delivery Room Air Oxygen Flow Rate 05/31/25 04:49 05/31/25 04:51 05/31/25 06:00 Temperature 36.6 C Pulse Rate 108 H 104 H 104 H Respiratory Rate 18 Blood Pressure 120/60 120/60 128/77 Pulse Oximetry 97 Oxygen Delivery Oxygen Flow Rate 05/31/25 06:00 05/31/25 06:00 05/31/25 06:01 Temperature Pulse Rate 104 H 104 H 104 H Respiratory Rate 20 Blood Pressure 128/77 Pulse Oximetry 98 Oxygen Delivery Oxygen Flow Rate 05/31/25 07:40 05/31/25 10:00 05/31/25 11:01 Temperature 36.6 C 36.6 C Pulse Rate 110 H 110 H 107 H Respiratory Rate 18 18 20 Blood Pressure 122/70 122/70 123/90 Pulse Oximetry 99 99 97 Oxygen Delivery Nasal Cannula Oxygen Flow Rate 2 Intake/Output Intake/Output: Intake & Output 05/28/25 05/29/25 05/30/25 05/31/25 23:59 23:59 23:59 23:59 Intake Total 2113.4 2186.1 2425.1 479.4 Output Total 750 1100 1800 500 Balance 1363.4 1086.1 625.1 -20.6 Meds/Results Medications: Active Medications Generic Name Dose Route Start Last Admin Trade Name Freq PRN Reason Stop Dose Admin Acetaminophen 500 mg 05/28/25 12:52 Acetaminophen 500 Mg Tablet PO Q6H PRN Pain (Scale Score 1-3) Allopurinol 200 mg 05/29/25 09:00 05/31/25 08:30 Allopurinol 100 Mg Tablet PO 200 mg DAILY MELANIE Administration Apixaban 2.5 mg 05/30/25 09:55 05/31/25 08:33 Apixaban 2.5 Mg Tablet PO 2.5 mg Q12HR MELANIE Administration Benzonatate 100 mg 05/28/25 13:38 Benzonatate 100 Mg Capsule PO TID PRN Cough Bisacodyl 10 mg 05/28/25 12:52 Bisacodyl 10 Mg Suppository RECTAL DAILY PRN Constipation Calcium Carbonate 500 mg 05/28/25 17:00 05/31/25 08:34 Calcium Carbonate (Oscal) 500 Mg Tablet PO 06/27/25 16:59 500 mg BID MELANIE Administration Dextrose 12.5 gm 05/28/25 12:54 Dextrose 50% 25 Gm/50 Ml Syringe IV PUSH PRN PRN Hypoglycemia Protocol Ezetimibe 10 mg 05/29/25 09:00 05/31/25 08:34 Ezetimibe 10 Mg Tablet PO 10 mg DAILY MELANIE Administration Empagliflozin 25 mg 05/29/25 09:00 05/31/25 08:33 Empagliflozin 25 Mg Tablet PO 25 mg DAILY MELANIE Administration Ergocalciferol 1,250 mcg 05/28/25 13:15 05/28/25 14:36 Ergocalciferol (Vitamin D2) 1,250 Mcg (50,000 Units) Capsule PO 1,250 mcg Tu@0900 MELANIE Administration Ferrous Sulfate 325 mg 05/29/25 08:00 05/31/25 08:33 Ferrous Sulfate 325 Mg Tablet PO 325 mg DAILY@0800 MELANIE Administration Fluticasone Propionate 1 spray 05/28/25 12:55 05/31/25 08:56 Fluticasone Propionate 0.05% Na Spr 16 Gm Btl (*Bkc) NASAL 1 spray Q12HR MELANIE Administration Furosemide 20 mg 05/29/25 09:00 05/31/25 08:34 Furosemide 20 Mg Tablet PO 20 mg QAM MELANIE Administration Glucagon 1 mg 05/28/25 12:54 Glucagon For Inj 1 Mg Vial IM PRN PRN Hypoglycemia Protocol Glucose 15 gm 05/28/25 12:54 Glucose Oral Gel 15 Gm Of Glucse In 37.5 Gm Tube PO PRN PRN Hypoglycemia Protocol Guaifenesin 600 mg 05/28/25 21:00 05/31/25 08:33 Guaifenesin 12 Hr 600 Mg Tabcr PO 600 mg Q12HR MELANIE Administration Azithromycin 500 mg/ Sodium 250 mls @ 250 mls/hr 05/28/25 12:55 05/31/25 08:37 Chloride IVPB 06/01/25 09:59 250 mls/hr QAM MELANIE Administration Dextrose 1,000 mls @ 100 mls/hr 05/28/25 12:54 Dextrose 5% 1,000 Ml IVPB PRN PRN Hypoglycemia Protocol Doxycycline Hyclate 100 mg/ 100 mls @ 100 mls/hr 05/29/25 09:00 05/31/25 08:35 Sodium Chloride IVPB 06/02/25 09:59 100 mls/hr Q12HR MELANIE Administration Amiodarone HCl/Dextrose 360 mg in 200 mls @ 33.333 mls/hr 05/29/25 15:10 05/31/25 06:00 Nexterone 360 Mg/D5w 200 Ml IV CONT 1 mg/min .Q6H MELANIE 33.33 mls/hr 1 MG/MIN Infusion Insulin Aspart 2 - 5 units 05/28/25 17:00 05/30/25 17:25 Insulin Aspart (*Bkc) 100 Units/Ml SUB-Q Not Given TIDWM MELANIE Protocol Insulin Glargine 20 units 05/28/25 21:00 05/30/25 20:36 Insulin Glargine (*Bkc) 100 Units/Ml SUB-Q 20 units HS MELANIE Administration Lidocaine 1 patch 05/29/25 09:00 05/31/25 08:32 Lidocaine 5% Patch TRANSDERM 1 patch DAILY MELANIE Administration Magnesium Oxide 400 mg 05/29/25 09:00 05/31/25 08:58 Magnesium Oxide 400 Mg Tablet PO 400 mg DAILY MELANIE Administration Metoprolol Tartrate 5 mg 05/30/25 13:16 05/30/25 15:11 Metoprolol Tartrate Inj 5 Mg/5 Ml Vial IV PUSH 5 mg Q6HR PRN Administration tachycardia Metoprolol Tartrate 25 mg 05/30/25 13:55 05/31/25 06:01 Metoprolol Tartrate 25 Mg Tablet PO 25 mg Q6HR MELANIE Administration Multivitamins/Minerals 1 tab 05/29/25 09:00 05/31/25 08:33 Multivitamins /C Lutein (Centrum Silver) Tablet *Bkc PO 06/28/25 08:59 1 tab DAILY MELANIE Administration Pantoprazole Sodium 40 mg 05/29/25 09:00 05/31/25 08:33 Pantoprazole 40 Mg Tablet PO 06/28/25 08:59 40 mg DAILY MELANIE Administration Perflutren Lipid Microsphere 0 ml 05/28/25 15:00 Perflutren Lipid Microspheres 1.5 Ml Vial Diluted To 10 Ml Total Volume IV PUSH 05/31/25 15:01 ONCE PRN adequate visualization Protocol Selenium Sulfide 1 applic 05/29/25 09:00 05/29/25 10:02 Selenium Sulfide 1% Shampoo 207 Ml TOPICAL Not Given MoWeFr@0900 MELANIE Simvastatin 40 mg 05/28/25 21:00 05/30/25 20:35 Simvastatin 20 Mg Tablet PO 40 mg HS MELANIE Administration Tramadol HCl 50 mg 05/28/25 13:00 05/31/25 08:34 Tramadol Hcl (*Crx) 50 Mg Tablet PO 50 mg QID MELANIE Administration Trazodone HCl 50 mg 05/28/25 21:00 05/30/25 20:36 Trazodone Hcl 50 Mg Tablet PO 50 mg QHS MELANIE Administration Radiology Results: ITS Impressions Chest X-Ray 05/28/25 10:08 IMPRESSION: Small opacities in the mid and lower lungs, greater on the left, which likely represents atelectasis or inflammatory/infectious process. Recommend follow-up to resolution to exclude underlying nodule. Consider a chest CT. Probable large hiatal hernia. If symptoms persist or worsen, consider a short-term follow-up study or additional imaging for further assessment. Chest CT 05/28/25 10:47 IMPRESSION: 1. There are a few reticular, bandlike and groundglass opacities in the mid and lower lungs. In addition, there are a few small patchy consolidations in the left lower lung. Differential includes atelectasis/scarring and/or an inflammatory/infectious process. 2. Moderate-sized hiatal hernia. Labs 05/31/25 03:59 05/31/25 03:59 Labs: Laboratory Results - last 24 hr 05/30/25 05/30/25 05/30/25 11:07 15:35 20:12 WBC RBC Hgb Hct MCV MCH MCHC RDW Plt Count MPV Immature Gran % (Auto) Neut % (Auto) Lymph % (Auto) [place] % (Auto) Eos % (Auto) Baso % (Auto) Lymph # (Auto) [place] # (Auto) Eos # (Auto) Baso # (Auto) Abs Immat Gran (auto) Absolute Neuts (auto) Absolute Nucleated RBC Nucleated RBC % Sodium Potassium Chloride Carbon Dioxide Anion Gap BUN Creatinine Estim Creat Clear Calc Estimated GFR Glucose POC Capillary Glucose 251 H 124 H 237 H Calcium Magnesium Total Bilirubin AST ALT Alkaline Phosphatase Total Protein Albumin 05/31/25 05/31/25 03:59 06:59 WBC 6.1 RBC 3.30 L Hgb 10.9 L Hct 33.7 L MCV 102.1 H MCH 33.0 MCHC 32.3 RDW 15.3 H Plt Count 153 MPV 9.3 Immature Gran % (Auto) 0.3 Neut % (Auto) 65.0 Lymph % (Auto) 24.3 [place] % (Auto) 6.6 Eos % (Auto) 3.3 Baso % (Auto) 0.5 Lymph # (Auto) 1.47 [place] # (Auto) 0.4 Eos # (Auto) 0.2 Baso # (Auto) 0.0 Abs Immat Gran (auto) 0.02 Absolute Neuts (auto) 3.9 Absolute Nucleated RBC 0.000 Nucleated RBC % 0.0 Sodium 135 L Potassium 4.0 Chloride 99 Carbon Dioxide 29 Anion Gap 7 BUN 38 H Creatinine 1.47 H Estim Creat Clear Calc 23 Estimated GFR 34 L Glucose 137 H POC Capillary Glucose 167 H Calcium 9.0 Magnesium 1.7 Total Bilirubin 0.3 AST 35 ALT 15 Alkaline Phosphatase 69 Total Protein 6.2 L Albumin 3.6 ASA Classification/Sedation ASA Classification/Sedation ASA Class: III Emergent: No Risks: Risks, benefits and alternatives explained and patient/family accepted plan for sedation. Patient re-evaluated immediately prior to sedation.
[2025-05-31] MEDS: PROPOFOL IV EMULSION 200 MG/20 ML VIAL 60 MG IV PUSH (11:14)
--- NOTE | 2025-05-31 11:15 | ECG_ITS ---
Test Date: 2025-05-31 11:25:08 Measurements Intervals [place] Rate: 60 P: 78 NV: 213 QRS: 104 QRSD: 142 T: 97 QT: 514 QTc: 514 Interpretive Statements SINUS RHYTHM WITH MARKED SINUS ARRHYTHMIA WITH FIRST DEGREE AV BLOCK RIGHT AXIS DEVIATION RIGHT BUNDLE BRANCH BLOCK BASELINE WANDER- V1 ABNORMAL ECG Compared to ECG 05/31/2025 10:31:30 Atrial fibrillation no longer present Electronically Signed On 05-31-2025 11:32:20 CDT by Zackery Caldera D.O.
--- NOTE | 2025-05-31 11:22 | P.PCNCC_ITS ---
Cardiac Cath Procedure Note Date of procedure:: 05/31/25 Performing physician:: Noel Sheikh MD Indication:: Persistent symptomatic atrial fibrillation Brief clinical history:: This is an 89-year-old lady with a history of aortic valve disease as well as paroxysmal atrial fibrillation. She was admitted to the hospital with symptomatic recurrence of her arrhythmia. She has been anticoagulated with apix aban since admission and treated with IV amiodarone despite this she has persisted in AF. At times her heart rate is as high in the 140s. For this reason PRIYA cardioversion has been recommended. Procedure Procedure performed:: Esophageal ECHO/cardioversion Sedation/Medication given:: Intravenous propofol in aliquots total dosage of 60 mg Estimated blood loss:: None Procedure note:: Patient was brought to the cardiac catheterization lab holding area in the postabsorptive state. Defibrillator patches were placed in the AP position and or pharyngeal benzocaine was used for topical anesthetic. Following this a bite block was placed and she received 2 doses of propofol totaling 60 mg which provided very good sedation. The PRIYA probe was easily advanced into the hypopharynx and into the esophagus. The left atrium was inspected with that with excellent image quality the left atrium is dilated but there was no evidence of thrombus in the atrium or in the appendage. The PRIYA probe was then withdrawn and the patient was counter shocked with 200 joules in a synchronized fashion which restored sinus rhythm. The patient did have airway obstruction with oxygen desaturation as the PRIYA probe was placed into the esophagus. With a jaw left the oxygen saturations quickly normalized. Findings:: As above Conclusion:: Successful uncomplicated PRIYA/cardioversion using 200 joules x1 shock to restore sinus rhythm after esophageal echocardiogram confirms absence of left atrial thrombus. Noel Sheikh MD [facility]
--- NOTE | 2025-05-31 12:55 | P.PNIM_ITS ---
Progress Note: A&P Assessment and Plan (1) Paroxysmal atrial fibrillation: Code(s): I48.0 - Paroxysmal atrial fibrillation Status: Acute Assessment and Plan: Patient presented to the emergency department with a heart rate in the 140s, telemetry/EKG showed atrial fibrillation RVR. Initially given metoprolol 5 mg IV x2 without improvement. Subsequently started on Cardizem with IV push x1. Patient's heart rate now consistently 110-115. Patient reporting subjective improvement in shortness of breath since reduction in heart rate. She continues to have some upper back pain that improves with massage but no complaints of chest discomfort. S/p Cardizem infusion, start Amio infusion per cardiology -hold home metoprolol, on 50 mg b.i.d. at home -ECHO showed normal EF with indeterminate diastolic dysfunction, TSH wnl -status post dalia/cardioversion 05/31/2025 -continue monitoring on telemetry cardiology following (2) Pneumonia: Qualifiers: Pneumonia type: due to unspecified organism Laterality: bilateral Lung location: unspecified part of lung Qualified Code(s): J18.9 - Pneumonia, unspecified organism Code(s): J18.9 - Pneumonia, unspecified organism Status: Acute Assessment and Plan: Patient reporting congestion. CXR and CT concerning for inflammatory/infectious process. No leukocytosis. However continues to have some upper back pain despite reduction in heart rate. Has had some improvement in shortness of breath with reduction in heart rate, however still experiencing some mild dyspnea. -viral PCR negative -on antibiotics. Switch to doxycycline to finish the course -supportive care: Mucinex, Tylenol, Tessalon Perles -encourage IS (3) Elevated troponin: Code(s): R79.89 - Other specified abnormal findings of blood chemistry Status: Acute Assessment and Plan: Likely demand, no chest pain at bedside Troponin flat ECHO no regional wall motion abnormalities, EF normal non invasive evaluation planned Cardiology following (4) CHF (congestive heart failure): Qualifiers: Heart failure chronicity: acute on chronic Heart failure type: right- sided Qualified Code(s): I50.813 - Acute on chronic right heart failure Code(s): I50.9 - Heart failure, unspecified Status: Acute Assessment and Plan: Contineu home lasix 20mg and Jardiance 25mg daily ECHO reviewed Cardiology following (5) Stage 4 chronic kidney disease: Code(s): N18.4 - Chronic kidney disease, stage 4 (severe) Status: Acute Assessment and Plan: Creatinine 1.75, BUN 33, GFR 27 upon admission on 04/10/2028. Reviewed previous lab work, range in 2023 was highly variable. Patient had values between 0.9 and 2.1. More recently 1.4-1.5. History of CKD stage 4. 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 Initial glucose 158, stable. - hypoglycemia protocol - POC blood glucose ACHS - home medication: Continue Lantus 25 units HS, pharmacist to adjust. Hold on sliding scale. Continue Jardiance. - correct regimen ordered - low/high dose TIDWM - A1C 6.5% on 12/17/2024 (7) Anemia: Qualifiers: Anemia type: unspecified type Qualified Code(s): D64.9 - Anemia, unspecified Code(s): D64.9 - Anemia, unspecified Status: Acute Assessment and Plan: Hb 10.7 -transfuse if less than 7 -monitor (8) HTN (hypertension): Qualifiers: Hypertension type: essential hypertension Qualified Code(s): I10 - Essential (primary) hypertension Code(s): I10 - Essential (primary) hypertension Status: Chronic Assessment and Plan: -monitor (9) Hyperlipidemia: Qualifiers: Hyperlipidemia type: unspecified Qualified Code(s): E78.5 - Hyperlipidemia, unspecified Code(s): E78.5 - Hyperlipidemia, unspecified Status: Chronic Assessment and Plan: -continue simvastatin 40 mg HS Plan Diet: Heart healthy DVT Prophylaxis: Lovenox SQ switched to Eliquis Code Status: Full code Subjective Date/time seen: 05/31/25 12:55 Interval history: Feels well. Got cardioverted to sinus rhythm this morning. Leg swelling has improved. Shortness of breath has improved. Minimal cough. Review of Systems Review of Systems: All systems reviewed & are unremarkable except as noted in HPI and below Exam Narrative: GENERAL: The patient is well developed, not in acute distress HEENT: Nonicteric sclerae, PERRLA, EOMI. Oropharynx clear. Moist mucous membranes. Conjunctivae appear well perfused. CHEST: Chest wall is nontender. HEART: Regular rate and rhythm without murmur, rubs, or gallops LUNGS: Clear to auscultation bilaterally. no respiratory distress ABDOMEN: Soft, positive bowel sounds, non-tender, no organomegaly. SKIN: No rash, no excessive bruising, petechiae, or purpura. NEUROLOGIC: Cranial nerves II-XII intact, alert and oriented x 3, no gross motor deficits EXTREMITIES: no edema, cyanosis or clubbing Objective Data Vital Signs Vital Signs: Vital Signs - 24 hr 05/30/25 14:00 05/30/25 14:00 05/30/25 15:10 Temperature Pulse Rate 133 H 127 H 134 H Respiratory Rate Blood Pressure 133/54 L Pulse Oximetry Oxygen Delivery Oxygen Flow Rate 05/30/25 15:11 05/30/25 15:51 05/30/25 16:00 Temperature 98.2 F Pulse Rate 139 H 127 H 122 H Respiratory Rate 20 Blood Pressure 121/70 121/70 Pulse Oximetry 99 Oxygen Delivery Oxygen Flow Rate 05/30/25 16:00 05/30/25 16:00 05/30/25 17:41 Temperature Pulse Rate 122 H 126 H Respiratory Rate Blood Pressure 120/90 Pulse Oximetry Oxygen Delivery Room Air Oxygen Flow Rate 05/30/25 18:00 05/30/25 18:00 05/30/25 18:08 Temperature Pulse Rate 131 H 127 H 130 H Respiratory Rate Blood Pressure 120/66 Pulse Oximetry Oxygen Delivery Oxygen Flow Rate 05/30/25 18:09 05/30/25 19:48 05/30/25 20:00 Temperature 98.2 F Pulse Rate 126 H 112 H 112 H Respiratory Rate 18 18 Blood Pressure 120/90 110/62 Pulse Oximetry 98 98 Oxygen Delivery Room Air Oxygen Flow Rate 05/30/25 20:00 05/30/25 20:00 05/30/25 21:57 Temperature Pulse Rate 112 H 112 H 106 H Respiratory Rate Blood Pressure 110/62 114/57 L Pulse Oximetry 99 Oxygen Delivery Oxygen Flow Rate 05/30/25 22:00 05/30/25 22:00 05/30/25 23:07 Temperature Pulse Rate 118 H 118 H 117 H Respiratory Rate Blood Pressure 114/57 L Pulse Oximetry Oxygen Delivery Oxygen Flow Rate 05/30/25 23:07 05/30/25 23:07 05/30/25 23:46 Temperature 98.1 F Pulse Rate 111 H 111 H 111 H Respiratory Rate 16 Blood Pressure 113/92 H 113/92 H 113/92 H Pulse Oximetry 98 Oxygen Delivery Oxygen Flow Rate 05/31/25 00:00 05/31/25 00:00 05/31/25 00:16 Temperature Pulse Rate 108 H 108 H 108 H Respiratory Rate 16 Blood Pressure Pulse Oximetry 98 Oxygen Delivery Room Air Oxygen Flow Rate 05/31/25 02:00 05/31/25 02:00 05/31/25 02:00 Temperature Pulse Rate 110 H 110 H 110 H Respiratory Rate 18 Blood Pressure 102/57 L 102/57 L Pulse Oximetry Oxygen Delivery Oxygen Flow Rate 05/31/25 04:00 05/31/25 04:00 05/31/25 04:49 Temperature Pulse Rate 107 H 107 H 108 H Respiratory Rate 18 Blood Pressure 120/60 Pulse Oximetry 97 Oxygen Delivery Room Air Oxygen Flow Rate 05/31/25 04:49 05/31/25 04:51 05/31/25 06:00 Temperature 97.8 F Pulse Rate 108 H 104 H 104 H Respiratory Rate 18 Blood Pressure 120/60 120/60 128/77 Pulse Oximetry 97 Oxygen Delivery Oxygen Flow Rate 05/31/25 06:00 05/31/25 06:00 05/31/25 06:01 Temperature Pulse Rate 104 H 104 H 104 H Respiratory Rate 20 Blood Pressure 128/77 Pulse Oximetry 98 Oxygen Delivery Oxygen Flow Rate 05/31/25 07:40 05/31/25 08:00 05/31/25 10:00 Temperature 97.8 F 97.8 F Pulse Rate 110 H 112 H 110 H Respiratory Rate 18 18 Blood Pressure 122/70 122/70 Pulse Oximetry 99 99 Oxygen Delivery Oxygen Flow Rate 05/31/25 10:00 05/31/25 11:01 05/31/25 11:14 Temperature Pulse Rate 107 H 107 H 108 H Respiratory Rate 20 14 Blood Pressure 123/90 133/91 H Pulse Oximetry 97 92 Oxygen Delivery Nasal Cannula Nasal Cannula Oxygen Flow Rate 2 3 05/31/25 11:19 05/31/25 11:34 05/31/25 11:49 Temperature Pulse Rate 59 L 66 64 Respiratory Rate 19 18 16 Blood Pressure 108/46 L 105/50 L 117/57 L Pulse Oximetry 95 93 94 Oxygen Delivery Nasal Cannula Room Air Room Air Oxygen Flow Rate 3 Intake/Output Intake/Output: Intake & Output 05/28/25 05/29/25 05/30/25 05/31/25 23:59 23:59 23:59 23:59 Intake Total 2113.4 2186.1 2425.1 479.4 Output Total 750 1100 1800 500 Balance 1363.4 1086.1 625.1 -20.6 Meds/Results Medications: Active Medications Generic Name Dose Route Start Last Admin Trade Name Freq PRN Reason Stop Dose Admin Acetaminophen 500 mg 05/28/25 12:52 Acetaminophen 500 Mg Tablet PO Q6H PRN Pain (Scale Score 1-3) Allopurinol 200 mg 05/29/25 09:00 05/31/25 08:30 Allopurinol 100 Mg Tablet PO 200 mg DAILY MELANIE Administration Amiodarone HCl 200 mg 05/31/25 11:25 Amiodarone Hcl 200 Mg Tablet PO DAILY@0800 [facility] Apixaban 2.5 mg 05/30/25 09:55 05/31/25 08:33 Apixaban 2.5 Mg Tablet PO 2.5 mg Q12HR MELANIE Administration Benzonatate 100 mg 05/28/25 13:38 Benzonatate 100 Mg Capsule PO TID PRN Cough Bisacodyl 10 mg 05/28/25 12:52 Bisacodyl 10 Mg Suppository RECTAL DAILY PRN Constipation Calcium Carbonate 500 mg 05/31/25 17:00 Calcium Carbonate (Oscal) 500 Mg Tablet PO 1200,1700 [facility] Dextrose 12.5 gm 05/28/25 12:54 Dextrose 50% 25 Gm/50 Ml Syringe IV PUSH PRN PRN Hypoglycemia Protocol Doxycycline Hyclate 100 mg 05/31/25 21:00 Doxycycline Hyclate 100 Mg Tablet PO 06/02/25 09:01 Q12HR [facility] Ezetimibe 10 mg 05/29/25 09:00 05/31/25 08:34 Ezetimibe 10 Mg Tablet PO 10 mg DAILY MELANIE Administration Empagliflozin 25 mg 05/29/25 09:00 05/31/25 08:33 Empagliflozin 25 Mg Tablet PO 25 mg DAILY MELANIE Administration Ergocalciferol 1,250 mcg 05/28/25 13:15 05/28/25 14:36 Ergocalciferol (Vitamin D2) 1,250 Mcg (50,000 Units) Capsule PO 1,250 mcg Tu@0900 MELANIE Administration Ferrous Sulfate 325 mg 05/29/25 08:00 05/31/25 08:33 Ferrous Sulfate 325 Mg Tablet PO 325 mg DAILY@0800 MELANIE Administration Fluticasone Propionate 1 spray 05/28/25 12:55 05/31/25 08:56 Fluticasone Propionate 0.05% Na Spr 16 Gm Btl (*Bkc) NASAL 1 spray Q12HR MELANIE Administration Furosemide 20 mg 05/29/25 09:00 05/31/25 08:34 Furosemide 20 Mg Tablet PO 20 mg QAM MELANIE Administration Glucagon 1 mg 05/28/25 12:54 Glucagon For Inj 1 Mg Vial IM PRN PRN Hypoglycemia Protocol Glucose 15 gm 05/28/25 12:54 Glucose Oral Gel 15 Gm Of Glucse In 37.5 Gm Tube PO PRN PRN Hypoglycemia Protocol Guaifenesin 600 mg 05/28/25 21:00 05/31/25 08:33 Guaifenesin 12 Hr 600 Mg Tabcr PO 600 mg Q12HR MELANIE Administration Dextrose 1,000 mls @ 100 mls/hr 05/28/25 12:54 Dextrose 5% 1,000 Ml IVPB PRN PRN Hypoglycemia Protocol Insulin Aspart 2 - 5 units 05/28/25 17:00 05/31/25 11:50 Insulin Aspart (*Bkc) 100 Units/Ml SUB-Q Not Given TIDWM [facility] Protocol Insulin Glargine 20 units 05/28/25 21:00 05/30/25 20:36 Insulin Glargine (*Bkc) 100 Units/Ml SUB-Q 20 units HS MELANIE Administration Lidocaine 1 patch 05/29/25 09:00 05/31/25 08:32 Lidocaine 5% Patch TRANSDERM 1 patch DAILY MELANIE Administration Magnesium Oxide 400 mg 05/29/25 09:00 05/31/25 08:58 Magnesium Oxide 400 Mg Tablet PO 400 mg DAILY MELANIE Administration Metoprolol Tartrate 5 mg 05/30/25 13:16 05/30/25 15:11 Metoprolol Tartrate Inj 5 Mg/5 Ml Vial IV PUSH 5 mg Q6HR PRN Administration tachycardia Metoprolol Tartrate 25 mg 05/30/25 13:55 05/31/25 06:01 Metoprolol Tartrate 25 Mg Tablet PO 25 mg Q6HR MELANIE Administration Multivitamins/Minerals 1 tab 05/29/25 09:00 05/31/25 08:33 Multivitamins /C Lutein (Centrum Silver) Tablet *Bkc PO 06/28/25 08:59 1 tab DAILY MELANIE Administration Pantoprazole Sodium 40 mg 05/29/25 09:00 05/31/25 08:33 Pantoprazole 40 Mg Tablet PO 06/28/25 08:59 40 mg DAILY EMLANIE Administration Perflutren Lipid Microsphere 0 ml 05/28/25 15:00 Perflutren Lipid Microspheres 1.5 Ml Vial Diluted To 10 Ml Total Volume IV PUSH 05/31/25 15:01 ONCE PRN adequate visualization Protocol Selenium Sulfide 1 applic 05/29/25 09:00 05/29/25 10:02 Selenium Sulfide 1% Shampoo 207 Ml TOPICAL Not Given [id number] MELANIE Simvastatin 40 mg 05/28/25 21:00 05/30/25 20:35 Simvastatin 20 Mg Tablet PO 40 mg HS MELANIE Administration Tramadol HCl 50 mg 05/28/25 13:00 05/31/25 08:34 Tramadol Hcl (*Crx) 50 Mg Tablet PO 50 mg QID MELANIE Administration Trazodone HCl 50 mg 05/28/25 21:00 05/30/25 20:36 Trazodone Hcl 50 Mg Tablet PO 50 mg QHS MELANIE Administration Radiology Results: ITS Impressions Chest X-Ray 05/28/25 10:08 IMPRESSION: Small opacities in the mid and lower lungs, greater on the left, which likely represents atelectasis or inflammatory/infectious process. Recommend follow-up to resolution to exclude underlying nodule. Consider a chest CT. Probable large hiatal hernia. If symptoms persist or worsen, consider a short-term follow-up study or additional imaging for further assessment. Chest CT 05/28/25 10:47 IMPRESSION: 1. There are a few reticular, bandlike and groundglass opacities in the mid and lower lungs. In addition, there are a few small patchy consolidations in the left lower lung. Differential includes atelectasis/scarring and/or an infla mmatory/infectious process. 2. Moderate-sized hiatal hernia. Labs Labs: Laboratory Results - last 24 hr 05/30/25 05/30/25 05/31/25 15:35 20:12 03:59 WBC 6.1 RBC 3.30 L Hgb 10.9 L Hct 33.7 L MCV 102.1 H MCH 33.0 MCHC 32.3 RDW 15.3 H Plt Count 153 MPV 9.3 Immature Gran % (Auto) 0.3 Neut % (Auto) 65.0 Lymph % (Auto) 24.3 [place] % (Auto) 6.6 Eos % (Auto) 3.3 Baso % (Auto) 0.5 Lymph # (Auto) 1.47 [place] # (Auto) 0.4 Eos # (Auto) 0.2 Baso # (Auto) 0.0 Abs Immat Gran (auto) 0.02 Absolute Neuts (auto) 3.9 Absolute Nucleated RBC 0.000 Nucleated RBC % 0.0 Sodium 135 L Potassium 4.0 Chloride 99 Carbon Dioxide 29 Anion Gap 7 BUN 38 H Creatinine 1.47 H Estim Creat Clear Calc 23 Estimated GFR 34 L Glucose 137 H POC Capillary Glucose 124 H 237 H Calcium 9.0 Magnesium 1.7 Total Bilirubin 0.3 AST 35 ALT 15 Alkaline Phosphatase 69 Total Protein 6.2 L Albumin 3.6 05/31/25 06:59 WBC RBC Hgb Hct MCV MCH MCHC RDW Plt Count MPV Immature Gran % (Auto) Neut % (Auto) Lymph % (Auto) [place] % (Auto) Eos % (Auto) Baso % (Auto) Lymph # (Auto) [place] # (Auto) Eos # (Auto) Baso # (Auto) Abs Immat Gran (auto) Absolute Neuts (auto) Absolute Nucleated RBC Nucleated RBC % Sodium Potassium Chloride Carbon Dioxide Anion Gap BUN Creatinine Estim Creat Clear Calc Estimated GFR Glucose POC Capillary Glucose 167 H Calcium Magnesium Total Bilirubin AST ALT Alkaline Phosphatase Total Protein Albumin
[2025-05-31] MEDS: AMIODARONE HCL 200 MG TABLET PO (13:06)
[2025-05-31] MEDS: SIMVASTATIN 20 MG TABLET 40 MG PO (21:09)
[2025-05-31] MEDS: DOXYCYCLINE HYCLATE 100 MG TABLET PO (21:09)
[2025-05-31] MEDS: INSULIN GLARGINE (*BKC) 100 UNITS/ML 20 UNITS SUB-Q (21:09)
[2025-06-01] VITALS (22 sets, daily range): BP systolic 106–141; BP diastolic 42–62; PULSE 68–116; RESP 15–24; TEMP 36.5–36.8; O2SAT 96–98
[2025-06-01] MEDS: METOPROLOL TARTRATE 25 MG TABLET PO ×5 (00:10→23:24)
[2025-06-01 05:02] LABS: Hematocrit 29.8 % (37.0-47.0); Hemoglobin 9.7 g/dL (12.0-15.0); Immature Granulocyte Percent A 0.4 % (0-0.5); Lymphocytes Absolute Auto 1.35 K/mm3 (0.9-3.2); Mean Corpuscular HGB Conc 32.6 g/dl (32-36); Mean Corpuscular Hemoglobin 33.1 pg (26-34); Mean Corpuscular Volume 101.7 fl (80-100); Nucleated Red Blood Cells Absolute Auto 0.000 K/mm3 (0.0-0.012); Nucleated Red Blood Cells Perc 0.0 % (0.0-0.2); Platelet Count Result 137 k/mm3 (150-375); Red Blood Count 2.93 M/mm3 (4.2-5.4); White Blood Count 5.7 K/mm3 (4.5-10.0)
[2025-06-01 05:28] LABS: Alanine Aminotransferase 13 U/L (6-35); Albumin Level 3.2 g/dL (3.5-5.1); Alkaline Phosphatase 65 U/L (38-126); Anion Gap 6 mmol/L (4-12); Aspartate Amino Transferase 30 U/L (14-36); Bilirubin,Total 0.4 mg/dL (0.2-1.3); Blood Urea Nitrogen 37 mg/dL (7-17); Calcium 8.7 mg/dL (8.4-10.2); Carbon Dioxide 27 mmol/L (22-30); Chloride 101 mmol/L (98-107); Estimated CRCL calculation 25 ml/min; Estimated Glomerular Filt Rate 36; Glucose 120 mg/dL (65-110); Magnesium 1.7 mg/dL (1.6-2.3); Potassium 3.9 mmol/L (3.4-5.0); Sodium 134 mmol/L (137-145); Total Protein 5.5 g/dL (6.3-8.2)
[2025-06-01] MEDS: DOXYCYCLINE HYCLATE 100 MG TABLET PO ×2 (08:41→20:45)
[2025-06-01] MEDS: APIXABAN 2.5 MG TABLET PO ×2 (08:41→20:45)
[2025-06-01] MEDS: FUROSEMIDE 20 MG TABLET PO (08:41)
[2025-06-01] MEDS: AMIODARONE HCL 200 MG TABLET PO (08:41)
[2025-06-01] MEDS: EZETIMIBE 10 MG TABLET PO (08:42)
[2025-06-01] MEDS: EMPAGLIFLOZIN 25 MG TABLET PO (08:42)
[2025-06-01] MEDS: traMADol HCL (*CRX) 50 MG TABLET PO ×4 (08:42→20:45)
[2025-06-01] MEDS: guaiFENesin 12 HR 600 MG TABCR PO ×2 (08:42→20:45)
[2025-06-01] MEDS: PANTOPRAZOLE 40 MG TABLET PO (08:42)
[2025-06-01] MEDS: FLUTICASONE PROPIONATE 0.05% NA SPR 16 GM BTL (*BKC) 1 SPRAY NASAL ×2 (08:42→20:45)
[2025-06-01] MEDS: LIDOCAINE 5% PATCH 1 PATCH TRANSDERM (08:43)
--- NOTE | 2025-06-01 11:42 | PM.PNCARD ---
Progress Note: A&P Assessment and Plan (1) Paroxysmal atrial fibrillation: Code(s): I48.0 - Paroxysmal atrial fibrillation Status: Acute Assessment and Plan: Status post cardioversion Continue Eliquis 2.5 mg b.i.d. Continue amiodarone 200 mg daily Continue metoprolol 25 mg daily (2) Elevated troponin: Code(s): R79.89 - Other specified abnormal findings of blood chemistry Status: Acute Assessment and Plan: Likely demand ischemia no evidence of ACS (3) Aortic valve stenosis: Code(s): I35.0 - Nonrheumatic aortic (valve) stenosis Status: Acute Assessment and Plan: Mild aortic valve disease follow-up echocardiogram (4) Diastolic congestive heart failure: Code(s): I50.30 - Unspecified diastolic (congestive) heart failure Status: Acute Assessment and Plan: Currently compensated Continue p.o. Lasix 20 mg daily and Jardiance Follow-up kidney function electrolytes (5) Benign hypertension with chronic kidney disease: Code(s): I12.9 - Hypertensive chronic kidney disease with stage 1 through stage 4 chronic kidney disease, or unspecified chronic kidney disease Status: Acute Assessment and Plan: Follow-up kidney function electrolytes (6) Hyperlipidemia: Qualifiers: Hyperlipidemia type: unspecified Qualified Code(s): E78.5 - Hyperlipidemia, unspecified Code(s): E78.5 - Hyperlipidemia, unspecified Status: Chronic Assessment and Plan: currently on simvastatin 40 mg daily and zetia 10 mg daily Subjective Date/time seen: 06/01/25 11:42 Interval history: Patient seen for follow-up for for persistent atrial fibrillation status post cardioversion No acute events Telemetry sinus rhythm Review of Systems Review of Systems: All systems reviewed & are unremarkable except as noted in HPI and below Exam Const: General: comfortable and no acute distress Eyes: General: appearance normal, both eyes and all related structures Neck: Neck: supple and No no JVD Resp: Effort & Inspection: normal respiratory effort Auscultation: clear to auscultation bilaterally Cardio: Rate: tachycardic Rhythm: abnormal rhythm Other: irreg irreg Skin: General skin exam: normal color and no rashes or lesions noted Neuro: Speech: normal speech Extrem: General: normal to inspection and no edema Psych: Mental Status: mental status grossly normal Objective Data Vital Signs Vital Signs: Vital Signs - 24 hr 05/31/25 11:49 05/31/25 12:00 05/31/25 13:06 Temperature Pulse Rate 64 69 67 Respiratory Rate 16 Blood Pressure 117/57 L Pulse Oximetry 94 Oxygen Delivery Room Air 05/31/25 13:06 05/31/25 13:48 05/31/25 14:00 Temperature Pulse Rate 67 78 Respiratory Rate Blood Pressure Pulse Oximetry Oxygen Delivery Room Air 05/31/25 16:00 05/31/25 16:00 05/31/25 16:59 Temperature 36.6 C Pulse Rate 81 81 73 Respiratory Rate 20 Blood Pressure 122/54 L Pulse Oximetry 97 Oxygen Delivery 05/31/25 18:00 05/31/25 20:00 05/31/25 20:00 Temperature Pulse Rate 74 79 79 Respiratory Rate 20 Blood Pressure Pulse Oximetry 100 Oxygen Delivery Room Air 05/31/25 20:06 05/31/25 22:00 05/31/25 23:40 Temperature 36.4 C 36.4 C Pulse Rate 73 68 87 Respiratory Rate 20 16 Blood Pressure 126/45 L 144/62 H Pulse Oximetry 100 97 Oxygen Delivery 06/01/25 00:00 06/01/25 00:00 06/01/25 00:10 Temperature Pulse Rate 77 77 72 Respiratory Rate 16 Blood Pressure Pulse Oximetry 97 Oxygen Delivery Room Air 06/01/25 02:00 06/01/25 04:00 06/01/25 04:00 Temperature Pulse Rate 74 76 76 Respiratory Rate 15 Blood Pressure Pulse Oximetry 98 Oxygen Delivery Room Air 06/01/25 04:29 06/01/25 05:42 06/01/25 06:00 Temperature 36.5 C Pulse Rate 74 72 74 Respiratory Rate 15 Blood Pressure 126/62 Pulse Oximetry 98 Oxygen Delivery 06/01/25 07:54 06/01/25 08:41 Temperature 36.8 C Pulse Rate 75 83 Respiratory Rate 24 H Blood Pressure 141/55 H Pulse Oximetry 97 Oxygen Delivery Intake/Output Intake/Output: Intake & Output 05/29/25 05/30/25 05/31/25 06/01/25 23:59 23:59 23:59 23:59 Intake Total 2186.1 2425.1 1163.4 910 Output Total 1100 1800 1200 500 Balance 1086.1 625.1 -36.6 410 Meds/Results Medications: Active Medications Generic Name Dose Route Start Last Admin Trade Name Freq PRN Reason Stop Dose Admin Acetaminophen 500 mg 05/28/25 12:52 Acetaminophen 500 Mg Tablet PO Q6H PRN Pain (Scale Score 1-3) Allopurinol 200 mg 05/29/25 09:00 06/01/25 08:42 Allopurinol 100 Mg Tablet PO 200 mg DAILY MELANIE Administration Amiodarone HCl 200 mg 05/31/25 11:25 06/01/25 08:41 Amiodarone Hcl 200 Mg Tablet PO 200 mg DAILY@0800 [facility] Administration Apixaban 2.5 mg 05/30/25 09:55 06/01/25 08:41 Apixaban 2.5 Mg Tablet PO 2.5 mg Q12HR [facility] Administration Benzonatate 100 mg 05/28/25 13:38 Benzonatate 100 Mg Capsule PO TID PRN Cough Bisacodyl 10 mg 05/28/25 12:52 Bisacodyl 10 Mg Suppository RECTAL DAILY PRN Constipation Calcium Carbonate 500 mg 05/31/25 17:00 05/31/25 16:59 Calcium Carbonate (Oscal) 500 Mg Tablet PO 500 mg 1200,1700 [facility] Administration Dextrose 12.5 gm 05/28/25 12:54 Dextrose 50% 25 Gm/50 Ml Syringe IV PUSH PRN PRN Hypoglycemia Protocol Doxycycline Hyclate 100 mg 05/31/25 21:00 06/01/25 08:41 Doxycycline Hyclate 100 Mg Tablet PO 06/02/25 09:01 100 mg Q12HR MELANIE Administration Ezetimibe 10 mg 05/29/25 09:00 06/01/25 08:42 Ezetimibe 10 Mg Tablet PO 10 mg DAILY [facility] Administration Empagliflozin 25 mg 05/29/25 09:00 06/01/25 08:42 Empagliflozin 25 Mg Tablet PO 25 mg DAILY [facility] Administration Ergocalciferol 1,250 mcg 05/28/25 13:15 05/28/25 14:36 Ergocalciferol (Vitamin D2) 1,250 Mcg (50,000 Units) Capsule PO 1,250 mcg Tu@0900 [facility] Administration Ferrous Sulfate 325 mg 06/01/25 12:00 Ferrous Sulfate 325 Mg Tablet PO DAILY@1200 [facility] Fluticasone Propionate 1 spray 05/28/25 12:55 06/01/25 08:42 Fluticasone Propionate 0.05% Na Spr 16 Gm Btl (*Bkc) NASAL 1 spray Q12HR MELANIE Administration Furosemide 20 mg 05/29/25 09:00 06/01/25 08:41 Furosemide 20 Mg Tablet PO 20 mg QAM MELANIE Administration Glucagon 1 mg 05/28/25 12:54 Glucagon For Inj 1 Mg Vial IM PRN PRN Hypoglycemia Protocol Glucose 15 gm 05/28/25 12:54 Glucose Oral Gel 15 Gm Of Glucse In 37.5 Gm Tube PO PRN PRN Hypoglycemia Protocol Guaifenesin 600 mg 05/28/25 21:00 06/01/25 08:42 Guaifenesin 12 Hr 600 Mg Tabcr PO 600 mg Q12HR MELANIE Administration Dextrose 1,000 mls @ 100 mls/hr 05/28/25 12:54 Dextrose 5% 1,000 Ml IVPB PRN PRN Hypoglycemia Protocol Insulin Aspart 2 - 5 units 05/28/25 17:00 06/01/25 08:03 Insulin Aspart (*Bkc) 100 Units/Ml SUB-Q Not Given TIDWM MELANIE Protocol Insulin Glargine 20 units 05/28/25 21:00 05/31/25 21:09 Insulin Glargine (*Bkc) 100 Units/Ml SUB-Q 20 units HS MELANIE Administration Lidocaine 1 patch 05/29/25 09:00 06/01/25 08:43 Lidocaine 5% Patch TRANSDERM 1 patch DAILY MELANIE Administration Magnesium Oxide 400 mg 06/01/25 12:00 Magnesium Oxide 400 Mg Tablet PO DAILY@1200 MELANIE Metoprolol Tartrate 5 mg 05/30/25 13:16 05/30/25 15:11 Metoprolol Tartrate Inj 5 Mg/5 Ml Vial IV PUSH 5 mg Q6HR PRN Administration tachycardia Metoprolol Tartrate 25 mg 05/30/25 13:55 06/01/25 05:42 Metoprolol Tartrate 25 Mg Tablet PO 25 mg Q6HR MELANIE Administration Multivitamins/Minerals 1 tab 06/01/25 12:00 Multivitamins /C Lutein (Centrum Silver) Tablet *Bkc PO DAILY@1200 MELANIE Pantoprazole Sodium 40 mg 05/29/25 09:00 06/01/25 08:42 Pantoprazole 40 Mg Tablet PO 06/28/25 08:59 40 mg DAILY M[facility]ANIE Administration Selenium Sulfide 1 applic 05/29/25 09:00 05/31/25 13:00 Selenium Sulfide 1% Shampoo 207 Ml TOPICAL Not Given [id number] MELANIE Simvastatin 40 mg 05/28/25 21:00 05/31/25 21:09 Simvastatin 20 Mg Tablet PO 40 mg HS MELANIE Administration Tramadol HCl 50 mg 05/28/25 13:00 06/01/25 08:42 Tramadol Hcl (*Crx) 50 Mg Tablet PO 50 mg QID MELANIE Administration Trazodone HCl 50 mg 05/28/25 21:00 05/31/25 21:09 Trazodone Hcl 50 Mg Tablet PO 50 mg QHS MELANIE Administration Radiology Results: ITS Impressions Chest X-Ray 05/28/25 10:08 IMPRESSION: Small opacities in the mid and lower lungs, greater on the left, which likely represents atelectasis or inflammatory/infectious process. Recommend follow-up to resolution to exclude underlying nodule. Consider a chest CT. Probable large hiatal hernia. If symptoms persist or worsen, consider a short-term follow-up study or additional imaging for further assessment. Chest CT 05/28/25 10:47 IMPRESSION: 1. There are a few reticular, bandlike and groundglass opacities in the mid and lower lungs. In addition, there are a few small patchy consolidations in the left lower lung. Differential includes atelectasis/scarring and/or an inflammatory/infectious process. 2. Moderate-sized hiatal hernia. Labs Labs: Laboratory Results - last 24 hr 05/31/25 05/31/25 06/01/25 16:48 21:06 04:05 WBC 5.7 RBC 2.93 L Hgb 9.7 L Hct 29.8 L MCV 101.7 H MCH 33.1 MCHC 32.6 RDW 15.0 H Plt Count 137 L MPV 9.5 Immature Gran % (Auto) 0.4 Neut % (Auto) 64.0 Lymph % (Auto) 23.8 Stephens % (Auto) 8.3 Eos % (Auto) 3.0 Baso % (Auto) 0.5 Lymph # (Auto) 1.35 Stephens # (Auto) 0.5 Eos # (Auto) 0.2 Baso # (Auto) 0.0 Abs Immat Gran (auto) 0.02 Absolute Neuts (auto) 3.6 Absolute Nucleated RBC 0.000 Nucleated RBC % 0.0 Sodium 134 L Potassium 3.9 Chloride 101 Carbon Dioxide 27 Anion Gap 6 BUN 37 H Creatinine 1.38 H Estim Creat Clear Calc 25 Estimated GFR 36 L Glucose 120 H POC Capillary Glucose 198 H 228 H Calcium 8.7 Magnesium 1.7 Total Bilirubin 0.4 AST 30 ALT 13 Alkaline Phosphatase 65 Total Protein 5.5 L Albumin 3.2 L 06/01/25 06/01/25 07:22 11:26 WBC RBC Hgb Hct MCV MCH MCHC RDW Plt Count MPV Immature Gran % (Auto) Neut % (Auto) Lymph % (Auto) Stephens % (Auto) Eos % (Auto) Baso % (Auto) Lymph # (Auto) Stephens # (Auto) Eos # (Auto) Baso # (Auto) Abs Immat Gran (auto) Absolute Neuts (auto) Absolute Nucleated RBC Nucleated RBC % Sodium Potassium Chloride Carbon Dioxide Anion Gap BUN Creatinine Estim Creat Clear Calc Estimated GFR Glucose POC Capillary Glucose 119 H 243 H Calcium Magnesium Total Bilirubin AST ALT Alkaline Phosphatase Total Protein Albumin
[2025-06-01] MEDS: MULTIVITAMINS /C LUTEIN (CENTRUM SILVER) TABLET *BKC 1 TAB PO (12:08)
[2025-06-01] MEDS: INSULIN ASPART (*BKC) 100 UNITS/ML SUB-Q (12:08)
[2025-06-01] MEDS: FERROUS SULFATE 325 MG TABLET PO (12:08)
[2025-06-01] MEDS: MAGNESIUM OXIDE 400 MG TABLET PO (12:09)
[2025-06-01] MEDS: CALCIUM CARBONATE (OSCAL) 500 MG TABLET PO ×2 (12:13→17:43)
--- NOTE | 2025-06-01 16:05 | P.PNIM_ITS ---
Progress Note: A&P Assessment and Plan (1) Paroxysmal atrial fibrillation: Code(s): I48.0 - Paroxysmal atrial fibrillation Status: Acute Assessment and Plan: Patient presented to the emergency department with a heart rate in the 140s, telemetry/EKG showed atrial fibrillation RVR. Initially given metoprolol 5 mg IV x2 without improvement. Subsequently started on Cardizem with IV push x1. Patient's heart rate now consistently 110-115. Patient reporting subjective improvement in shortness of breath since reduction in heart rate. She continues to have some upper back pain that improves with massage but no complaints of chest discomfort. S/p Cardizem infusion, start Amio infusion per cardiology -hold home metoprolol, on 50 mg b.i.d. at home -ECHO showed normal EF with indeterminate diastolic dysfunction, TSH wnl -status post dalia/cardioversion 05/31/2025 and remains on sinus rhythm -continue monitoring on telemetry cardiology following (2) Pneumonia: Qualifiers: Pneumonia type: due to unspecified organism Laterality: bilateral Lung location: unspecified part of lung Qualified Code(s): J18.9 - Pneumonia, unspecified organism Code(s): J18.9 - Pneumonia, unspecified organism Status: Acute Assessment and Plan: Patient reporting congestion. CXR and CT concerning for inflammatory/infectious process. No leukocytosis. However continues to have some upper back pain despite reduction in heart rate. Has had some improvement in shortness of breath with reduction in heart rate, however still experiencing some mild dyspnea. -viral PCR negative -on antibiotics. Switch to doxycycline to finish the course -supportive care: Mucinex, Tylenol, Tessalon Perles -encourage IS (3) Elevated troponin: Code(s): R79.89 - Other specified abnormal findings of blood chemistry Status: Acute Assessment and Plan: Likely demand, no chest pain at bedside Troponin flat ECHO no regional wall motion abnormalities, EF normal non invasive evaluation planned Cardiology following (4) CHF (congestive heart failure): Qualifiers: Heart failure chronicity: acute on chronic Heart failure type: right- sided Qualified Code(s): I50.813 - Acute on chronic right heart failure Code(s): I50.9 - Heart failure, unspecified Status: Acute Assessment and Plan: Contineu home lasix 20mg and Jardiance 25mg daily ECHO reviewed Cardiology following (5) Stage 4 chronic kidney disease: Code(s): N18.4 - Chronic kidney disease, stage 4 (severe) Status: Acute Assessment and Plan: Creatinine 1.75, BUN 33, GFR 27 upon admission on 04/10/2028. Reviewed previous lab work, range in 2023 was highly variable. Patient had values between 0.9 and 2.1. More recently 1.4-1.5. History of CKD stage 4. -trend renal function -trend electrolytes, correct as needed (6) Type 2 diabetes mellitus with diabetic chronic kidney disease: Qualifiers: Diabetes mellitus salvage determiner insulin use: with salvage determiner use Chronic kidney disease stage: stage 4 (GFR 15-29) Qualified Code(s): E11.22 - Type 2 diabetes mellitus with diabetic chronic kidney disease; N18.4 - Chronic kidney disease, stage 4 (severe); Z79.4 - MCC (current) use of insulin Code(s): E11.22 - Type 2 diabetes mellitus with diabetic chronic kidney disease Status: Acute Assessment and Plan: History of type 2 diabetes on chronic insulin with associated CKD stage IV. Initial glucose 158, stable. - hypoglycemia protocol - POC blood glucose ACHS - home medication: Continue Lantus 25 units HS, pharmacist to adjust. Hold on sliding scale. Continue Jardiance. - correct regimen ordered - low/high dose TIDWM - A1C 6.5% on 12/17/2024 (7) Anemia: Qualifiers: Anemia type: unspecified type Qualified Code(s): D64.9 - Anemia, unspecified Code(s): D64.9 - Anemia, unspecified Status: Acute Assessment and Plan: Hb 10.7 -transfuse if less than 7 -monitor (8) HTN (hypertension): Qualifiers: Hypertension type: essential hypertension Qualified Code(s): I10 - Essential (primary) hypertension Code(s): I10 - Essential (primary) hypertension Status: Chronic Assessment and Plan: -monitor (9) Hyperlipidemia: Qualifiers: Hyperlipidemia type: unspecified Qualified Code(s): E78.5 - Hyperl ipidemia, unspecified Code(s): E78.5 - Hyperlipidemia, unspecified Status: Chronic Assessment and Plan: -continue simvastatin 40 mg HS Plan Disposition: deconditioned. pt ot to see. needs placement. Diet: Heart healthy DVT Prophylaxis: Lovenox SQ switched to Eliquis Code Status: Full code Subjective Date/time seen: 06/01/25 16:05 Interval history: no new complaints. remains sinus rhythm. no nausea vomtiing. opposed to going to SNF. Review of Systems Review of Systems: All systems reviewed & are unremarkable except as noted in HPI and below Exam Narrative: GENERAL: The patient is well developed, not in acute distress HEENT: Nonicteric sclerae, PERRLA, EOMI. Oropharynx clear. Moist mucous membrane s. Conjunctivae appear well perfused. CHEST: Chest wall is nontender. HEART: Regular rate and rhythm without murmur, rubs, or gallops LUNGS: Clear to auscultation bilaterally. no respiratory distress ABDOMEN: Soft, positive bowel sounds, non-tender, no organomegaly. SKIN: No rash, no excessive bruising, petechiae, or purpura. NEUROLOGIC: Cranial nerves II-XII intact, alert and oriented x 3, no gross motor deficits EXTREMITIES: no edema, cyanosis or clubbing Objective Data Vital Signs Vital Signs: Vital Signs - 24 hr 05/31/25 16:59 05/31/25 18:00 05/31/25 20:00 Temperature Pulse Rate 73 74 79 Respiratory Rate 20 Blood Pressure Pulse Oximetry 100 Oxygen Delivery Room Air 05/31/25 20:00 05/31/25 20:06 05/31/25 22:00 Temperature 97.6 F Pulse Rate 79 73 68 Respiratory Rate 20 Blood Pressure 126/45 L Pulse Oximetry 100 Oxygen Delivery 05/31/25 23:40 06/01/25 00:00 06/01/25 00:00 Temperature 97.6 F Pulse Rate 87 77 77 Respiratory Rate 16 16 Blood Pressure 144/62 H Pulse Oximetry 97 97 Oxygen Delivery Room Air 06/01/25 00:10 06/01/25 02:00 06/01/25 04:00 Temperature Pulse Rate 72 74 76 Respiratory Rate 15 Blood Pressure Pulse Oximetry 98 Oxygen Delivery Room Air 06/01/25 04:00 06/01/25 04:29 06/01/25 05:42 Temperature 97.7 F Pulse Rate 76 74 72 Respiratory Rate 15 Blood Pressure 126/62 Pulse Oximetry 98 Oxygen Delivery 06/01/25 06:00 06/01/25 07:54 06/01/25 08:00 Temperature 98.2 F Pulse Rate 74 75 80 Respiratory Rate 24 H Blood Pressure 141/55 H Pulse Oximetry 97 Oxygen Delivery 06/01/25 08:41 06/01/25 10:00 06/01/25 11:34 Temperature Pulse Rate 83 78 Respiratory Rate Blood Pressure Pulse Oximetry Oxygen Delivery Room Air 06/01/25 12:00 06/01/25 12:09 06/01/25 14:00 Temperature Pulse Rate 78 115 H 68 Respiratory Rate Blood Pressure Pulse Oximetry Oxygen Delivery Intake/Output Intake/Output: Intake & Output 05/29/25 05/30/25 05/31/25 06/01/25 23:59 23:59 23:59 23:59 Intake Total 2186.1 2425.1 1163.4 1150 Output Total 1100 1800 1200 500 Balance 1086.1 625.1 -36.6 650 Meds/Results Medications: Active Medications Generic Name Dose Route Start Last Admin Trade Name Freq PRN Reason Stop Dose Admin Acetaminophen 500 mg 05/28/25 12:52 Acetaminophen 500 Mg Tablet PO Q6H PRN Pain (Scale Score 1-3) Allopurinol 200 mg 05/29/25 09:00 06/01/25 08:42 Allopurinol 100 Mg Tablet PO 200 mg DAILY MELANIE Administration Amiodarone HCl 200 mg 05/31/25 11:25 06/01/25 08:41 Amiodarone Hcl 200 Mg Tablet PO 200 mg DAILY@0800 [facility] Administration Apixaban 2.5 mg 05/30/25 09:55 06/01/25 08:41 Apixaban 2.5 Mg Tablet PO 2.5 mg Q12HR MELANIE Administration Benzonatate 100 mg 05/28/25 13:38 Benzonatate 100 Mg Capsule PO TID PRN Cough Bisacodyl 10 mg 05/28/25 12:52 Bisacodyl 10 Mg Suppository RECTAL DAILY PRN Constipation Calcium Carbonate 500 mg 05/31/25 17:00 06/01/25 12:13 Calcium Carbonate (Oscal) 500 Mg Tablet PO 500 mg 1200,1700 [facility] Administration Dextrose 12.5 gm 05/28/25 12:54 Dextrose 50% 25 Gm/50 Ml Syringe IV PUSH PRN PRN Hypoglycemia Protocol Doxycycline Hyclate 100 mg 05/31/25 21:00 06/01/25 08:41 Doxycycline Hyclate 100 Mg Tablet PO 06/02/25 09:01 100 mg Q12HR MELANIE Administration Ezetimibe 10 mg 05/29/25 09:00 06/01/25 08:42 Ezetimibe 10 Mg Tablet PO 10 mg DAILY MELANIE Administration Empagliflozin 25 mg 05/29/25 09:00 06/01/25 08:42 Empagliflozin 25 Mg Tablet PO 25 mg DAILY MELANIE Administration Ergocalciferol 1,250 mcg 05/28/25 13:15 05/28/25 14:36 Ergocalciferol (Vitamin D2) 1,250 Mcg (50,000 Units) Capsule PO 1,250 mcg Tu@0900 [facility] Administration Ferrous Sulfate 325 mg 06/01/25 12:00 06/01/25 12:08 Ferrous Sulfate 325 Mg Tablet PO 325 mg DAILY@1200 [facility] Administration Fluticasone Propionate 1 spray 05/28/25 12:55 06/01/25 08:42 Fluticasone Propionate 0.05% Na Spr 16 Gm Btl (*Bkc) NASAL 1 spray Q12HR MELANIE Administration Furosemide 20 mg 05/29/25 09:00 06/01/25 08:41 Furosemide 20 Mg Tablet PO 20 mg QAM MELANIE Administration Glucagon 1 mg 05/28/25 12:54 Glucagon For Inj 1 Mg Vial IM PRN PRN Hypoglycemia Protocol Glucose 15 gm 05/28/25 12:54 Glucose Oral Gel 15 Gm Of Glucse In 37.5 Gm Tube PO PRN PRN Hypoglycemia Protocol Guaifenesin 600 mg 05/28/25 21:00 06/01/25 08:42 Guaifenesin 12 Hr 600 Mg Tabcr PO 600 mg Q12HR MELANIE Administration Dextrose 1,000 mls @ 100 mls/hr 05/28/25 12:54 Dextrose 5% 1,000 Ml IVPB PRN PRN Hypoglycemia Protocol Insulin Aspart 2 - 5 units 05/28/25 17:00 06/01/25 12:08 Insulin Aspart (*Bkc) 100 Units/Ml SUB-Q 2 units TIDWM MELANIE Administration Protocol Insulin Glargine 20 units 05/28/25 21:00 05/31/25 21:09 Insulin Glargine (*Bkc) 100 Units/Ml SUB-Q 20 units HS MELANIE Administration Lidocaine 1 patch 05/29/25 09:00 06/01/25 08:43 Lidocaine 5% Patch TRANSDERM 1 patch DAILY MELANIE Administration Magnesium Oxide 400 mg 06/01/25 12:00 06/01/25 12:09 Magnesium Oxide 400 Mg Tablet PO 400 mg DAILY@1200 MEL[facility] Administration Metoprolol Tartrate 5 mg 05/30/25 13:16 05/30/25 15:11 Metoprolol Tartrate Inj 5 Mg/5 Ml Vial IV PUSH 5 mg Q6HR PRN Administration tachycardia Metoprolol Tartrate 25 mg 05/30/25 13:55 06/01/25 12:09 Metoprolol Tartrate 25 Mg Tablet PO 25 mg Q6HR MELANIE Administration Multivitamins/Minerals 1 tab 06/01/25 12:00 06/01/25 12:08 Multivitamins /C Lutein (Centrum Silver) Tablet *Bkc PO 1 tab DAILY@1200 MELANIE Administration Pantoprazole Sodium 40 mg 05/29/25 09:00 06/01/25 08:42 Pantoprazole 40 Mg Tablet PO 06/28/25 08:59 40 mg DAILY MELANIE Administration Selenium Sulfide 1 applic 05/29/25 09:00 05/31/25 13:00 Selenium Sulfide 1% Shampoo 207 Ml TOPICAL Not Given [id number] [facility] Simvastatin 40 mg 05/28/25 21:00 05/31/25 21:09 Simvastatin 20 Mg Tablet PO 40 mg HS MELANIE Administration Tramadol HCl 50 mg 05/28/25 13:00 06/01/25 12:09 Tramadol Hcl (*Crx) 50 Mg Tablet PO 50 mg QID MELANIE Administration Trazodone HCl 50 mg 05/28/25 21:00 05/31/25 21:09 Trazodone Hcl 50 Mg Tablet PO 50 mg QHS MELANIE Administration Radiology Results: ITS Impressions Chest X-Ray 05/28/25 10:08 IMPRESSION: Small opacities in the mid and lower lungs, greater on the left, which likely represents atelectasis or inflammatory/infectious process. Recommend follow-up to resolution to exclude underlying nodule. Consider a chest CT. Probable large hiatal hernia. If symptoms persist or worsen, consider a short-term follow-up study or additional imaging for further assessment. Chest CT 05/28/25 10:47 IMPRESSION: 1. There are a few reticular, bandlike and groundglass opacities in the mid and lower lungs. In addition, there are a few small patchy consolidations in the left lower lung. Differential includes atelectasis/scarring and/or an inflammatory/infectious process. 2. Moderate-sized hiatal hernia. Labs Labs: Laboratory Results - last 24 hr 05/31/25 05/31/25 06/01/25 16:48 21:06 04:05 WBC 5.7 RBC 2.93 L Hgb 9.7 L Hct 29.8 L MCV 101.7 H MCH 33.1 MCHC 32.6 RDW 15.0 H Plt Count 137 L MPV 9.5 Immature Gran % (Auto) 0.4 Neut % (Auto) 64.0 Lymph % (Auto) 23.8 Crowley % (Auto) 8.3 Eos % (Auto) 3.0 Baso % (Auto) 0.5 Lymph # (Auto) 1.35 Crowley # (Auto) 0.5 Eos # (Auto) 0.2 Baso # (Auto) 0.0 Abs Immat Gran (auto) 0.02 Absolute Neuts (auto) 3.6 Absolute Nucleated RBC 0.000 Nucleated RBC % 0.0 Sodium 134 L Potassium 3.9 Chloride 101 Carbon Dioxide 27 Anion Gap 6 BUN 37 H Creatinine 1.38 H Estim Creat Clear Calc 25 Estimated GFR 36 L Glucose 120 H POC Capillary Glucose 198 H 228 H Calcium 8.7 Magnesium 1.7 Total Bilirubin 0.4 AST 30 ALT 13 Alkaline Phosphatase 65 Total Protein 5.5 L Albumin 3.2 L 06/01/25 06/01/25 07:22 11:26 WBC RBC Hgb Hct MCV MCH MCHC RDW Plt Count MPV Immature Gran % (Auto) Neut % (Auto) Lymph % (Auto) Crowley % (Auto) Eos % (Auto) Baso % (Auto) Lymph # (Auto) Crowley # (Auto) Eos # (Auto) Baso # (Auto) Abs Immat Gran (auto) Absolute Neuts (auto) Absolute Nucleated RBC Nucleated RBC % Sodium Potassium Chloride Carbon Dioxide Anion Gap BUN Creatinine Estim Creat Clear Calc Estimated GFR Glucose POC Capillary Glucose 119 H 243 H Calcium Magnesium Total Bilirubin AST ALT Alkaline Phosphatase Total Protein Albumin
[2025-06-01] MEDS: SIMVASTATIN 20 MG TABLET 40 MG PO (20:45)
[2025-06-01] MEDS: INSULIN GLARGINE (*BKC) 100 UNITS/ML 20 UNITS SUB-Q (20:46)
[2025-06-02] VITALS (11 sets, daily range): BP systolic 124–138; BP diastolic 57–65; PULSE 71–110; RESP 16–20; TEMP 36.4–36.7; O2SAT 96–99
--- NOTE | 2025-06-02 01:32 | PC.NURSE ---
Daylight Savings Time For Daylight Savings Time Ending in the Fall - Clocks are moved back. For Daylight Savings Time Beginning in the Spring - Clocks are moved ahead. For [facility], the time of change occurs at 0200 hrs. Time is taken from the windows server architect. This entry on the patient's chart recognizes the change in time reflected during documentation. Example: 2 entries for vital signs may be charted for 0200 hrs.
[2025-06-02] MEDS: METOPROLOL TARTRATE 25 MG TABLET PO ×3 (06:15→16:56)
[2025-06-02 08:24] LABS: Hematocrit 33.0 % (37.0-47.0); Hemoglobin 10.8 g/dL (12.0-15.0); Mean Corpuscular HGB Conc 32.7 g/dl (32-36); Mean Corpuscular Hemoglobin 32.9 pg (26-34); Mean Corpuscular Volume 100.6 fl (80-100); Platelet Count Result 164 k/mm3 (150-375); Red Blood Count 3.28 M/mm3 (4.2-5.4); White Blood Count 5.7 K/mm3 (4.5-10.0)
[2025-06-02] MEDS: AMIODARONE HCL 200 MG TABLET PO (08:28)
[2025-06-02] MEDS: APIXABAN 2.5 MG TABLET PO ×2 (08:29→20:42)
[2025-06-02] MEDS: traMADol HCL (*CRX) 50 MG TABLET PO ×4 (08:29→20:44)
[2025-06-02] MEDS: PANTOPRAZOLE 40 MG TABLET PO (08:29)
[2025-06-02] MEDS: FLUTICASONE PROPIONATE 0.05% NA SPR 16 GM BTL (*BKC) 1 SPRAY NASAL ×2 (08:29→20:49)
[2025-06-02] MEDS: FUROSEMIDE 20 MG TABLET PO (08:29)
[2025-06-02] MEDS: LIDOCAINE 5% PATCH 1 PATCH TRANSDERM (08:29)
[2025-06-02] MEDS: DOXYCYCLINE HYCLATE 100 MG TABLET PO (08:29)
[2025-06-02] MEDS: EZETIMIBE 10 MG TABLET PO (08:29)
[2025-06-02] MEDS: guaiFENesin 12 HR 600 MG TABCR PO ×2 (08:29→20:43)
[2025-06-02] MEDS: EMPAGLIFLOZIN 25 MG TABLET PO (08:29)
[2025-06-02 08:41] LABS: Albumin Level 3.6 g/dL (3.5-5.1); Anion Gap 9 mmol/L (4-12); Blood Urea Nitrogen 41 mg/dL (7-17); Calcium 8.9 mg/dL (8.4-10.2); Carbon Dioxide 28 mmol/L (22-30); Chloride 98 mmol/L (98-107); Estimated CRCL calculation 24 ml/min; Estimated Glomerular Filt Rate 36; Glucose 134 mg/dL (65-110); Potassium 3.9 mmol/L (3.4-5.0); Sodium 135 mmol/L (137-145)
--- NOTE | 2025-06-02 10:43 | P.PNIM_ITS ---
Progress Note: A&P Assessment and Plan (1) Paroxysmal atrial fibrillation: Code(s): I48.0 - Paroxysmal atrial fibrillation Status: Acute Assessment and Plan: Patient presented to the emergency department with a heart rate in the 140s, telemetry/EKG showed atrial fibrillation RVR. Initially given metoprolol 5 mg IV x2 without improvement. Subsequently started on Cardizem with IV push x1. Patient's heart rate now consistently 110-115. Patient reporting subjective improvement in shortness of breath since reduction in heart rate. She continues to have some upper back pain that improves with massage but no complaints of chest discomfort. S/p Cardizem infusion, s/p Amio infusion per cardiology and now taking amiodarone 200 mg PO daily and apixaban 2.5 mg bid -ECHO showed normal EF with indeterminate diastolic dysfunction, TSH wnl -status post dalia/cardioversion 05/31/2025 - 06/02 HR 90's, AF Awaiting disposition SNF vs HH at her apt at [facility] (2) Pneumonia: Qualifiers: Pneumonia type: due to unspecified organism Laterality: bilateral Lung location: unspecified part of lung Qualified Code(s): J18.9 - Pneumonia, unspecified organism Code(s): J18.9 - Pneumonia, unspecified organism Status: Acute Assessment and Plan: Patient reporting congestion. CXR and CT concerning for inflammatory/infectious process. No leukocytosis. However continues to have some upper back pain despite reduction in heart rate. Has had some improvement in shortness of breath with reduction in heart rate, however still experiencing some mild dyspnea. -viral PCR negative -on antibiotics. Switched to doxycycline through 06/02 -supportive care: Mucinex, Tylenol, Tessalon Perles -encourage IS (3) Elevated troponin: Code(s): R79.89 - Other specified abnormal findings of blood chemistry Status: Acute Assessment and Plan: Likely demand, no chest pain at bedside Troponin flat ECHO no regional wall motion abnormalities, EF normal non invasive evaluation planned Cardiology following (4) CHF (congestive heart failure): Qualifiers: Heart failure chronicity: acute on chronic Heart failure type: right- sided Qualified Code(s): I50.813 - Acute on chronic right heart failure Code(s): I50.9 - Heart failure, unspecified Status: Acute Assessment and Plan: Contineu home lasix 20mg and Jardiance 25mg daily ECHO reviewed Cardiology following (5) Stage 4 chronic kidney disease: Code(s): N18.4 - Chronic kidney disease, stage 4 (severe) Status: Acute Assessment and Plan: Creatinine 1.75, BUN 33, GFR 27 upon admission on 04/10/2028. Reviewed previous lab work, range in 2023 was highly variable. Patient had values between 0.9 and 2.1. More recently 1.4-1.5. History of CKD stage 4. 06/02 Creatinine 1.39 (6) Type 2 diabetes mellitus with diabetic chronic kidney disease: Qualifiers: Diabetes mellitus senior care insulin use: with salvage determiner use Chronic kidney disease stage: stage 4 (GFR 15-29) Qualified Code(s): E11.22 - Type 2 diabetes mellitus with diabetic chronic kidney disease; N18.4 - Chronic kidney disease, stage 4 (severe); Z79.4 - long-term (current) use of insulin Code(s): E11.22 - Type 2 diabetes mellitus with diabetic chronic kidney disease Status: Acute Assessment and Plan: History of type 2 diabetes on chronic insulin with associated CKD stage IV. Initial glucose 158, stable. - hypoglycemia protocol - POC blood glucose ACHS - home medication: Continue Lantus 25 units HS. Continue Jardiance. - correct regimen ordered TIDWM - A1C 6.5% on 12/17/2024 (7) Anemia: Qualifiers: Anemia type: unspecified type Qualified Code(s): D64.9 - Anemia, unspecified Code(s): D64.9 - Anemia, unspecified Status: Acute Assessment and Plan: Hb 10.7 06/02 10.8 -transfuse if less than 7 -monitor (8) HTN (hypertension): Qualifiers: Hypertension type: essential hypertension Qualified Code(s): I10 - Essential (primary) hypertension Code(s): I10 - Essential (primary) hypertension Status: Chronic Assessment and Plan: 06/02 138/65 (9) Hyperlipidemia: Qualifiers: Hyperlipidemia type: unspecified Qualified Code(s): E78.5 - Hyperlipidemia, unspecified Code(s): E78.5 - Hyperlipidemia, unspecified Status: Chronic Assessment and Plan: -continue simvastatin 40 mg HS Subjective Date/time seen: 06/02/25 10:43 Interval history: Admitted May 28 with AFib with RVR and possible pneumonia. Received IV old diltiazem then IV amiodarone. Currently tolerating p.o. medications. She is doing physical therapy and hopes to go home to her assisted living apartment with home health. Tolerating diet. Denied chest pain, shortness of breath, palpitations, dizziness, GI or issues, or abnormal bleeding. Review of Systems Review of Systems: All systems reviewed & are unremarkable except as noted in HPI and below Exam Narrative: HEENT: PERRL, sclerae nonicteric, pharyngeal mucosa pink and intact NECK: No JVD, adenopathy, or thyromegaly CHEST: Clear to auscultation. Normal effort HEART: NL S1/S2, irregular, no murmur ABDOMEN: BS+, soft, nontender, no mass, no bruits EXTREMITIES: No cyanosis, edema, or clubbing NEUROLOGIC: CN intact and symmetric to inspection MUSCULOSKELETAL: Tone and strength symmetric PSYCH: Alert. Oriented to person, place, and time Objective Data Vital Signs Vital Signs: Vital Signs - 24 hr 06/01/25 12:00 06/01/25 12:09 06/01/25 14:00 Temperature Pulse Rate 78 115 H 68 Respiratory Rate Blood Pressure Pulse Oximetry Oxygen Delivery 06/01/25 16:00 06/01/25 16:00 06/01/25 16:23 Temperature 98.3 F 98.3 F Pulse Rate 78 71 78 Respiratory Rate 24 H 24 H Blood Pressure 132/59 L 132/59 L Pulse Oximetry 96 96 Oxygen Delivery 06/01/25 17:43 06/01/25 18:00 06/01/25 20:00 Temperature Pulse Rate 107 H 76 116 H Respiratory Rate 24 H Blood Pressure Pulse Oximetry 96 Oxygen Delivery Room Air 06/01/25 20:00 06/01/25 20:00 06/01/25 21:43 Temperature 98.2 F Pulse Rate 116 H 83 72 Respiratory Rate 18 Blood Pressure 106/42 L Pulse Oximetry 97 Oxygen Delivery 06/01/25 23:24 06/01/25 23:43 06/02/25 00:00 Temperature 98.1 F Pulse Rate 72 74 71 Respiratory Rate 18 Blood Pressure 113/62 Pulse Oximetry 97 Oxygen Delivery 06/02/25 04:00 06/02/25 06:15 06/02/25 08:00 Temperature 98.0 F Pulse Rate 74 76 84 Respiratory Rate 20 Blood Pressure 138/65 Pulse Oximetry 96 Oxygen Delivery 06/02/25 08:00 06/02/25 08:00 06/02/25 08:28 Temperature Pulse Rate 78 83 Respiratory Rate Blood Pressure Pulse Oximetry Oxygen Delivery Room Air Intake/Output Intake/Output: Intake & Output 05/30/25 05/31/25 06/01/25 06/02/25 23:59 23:59 23:59 22:59 Intake Total 2425.1 1163.4 1690 450 Output Total 1800 1200 1150 1100 Balance 625.1 -36.6 540 -650 Meds/Results Medications: Active Medications Generic Name Dose Route Start Last Admin Trade Name Freq PRN Reason Stop Dose Admin Acetaminophen 500 mg 05/28/25 12:52 Acetaminophen 500 Mg Tablet PO Q6H PRN Pain (Scale Score 1-3) Allopurinol 200 mg 05/29/25 09:00 06/02/25 08:28 Allopurinol 100 Mg Tablet PO 200 mg DAILY MELANIE Administration Amiodarone HCl 200 mg 05/31/25 11:25 06/02/25 08:28 Amiodarone Hcl 200 Mg Tablet PO 200 mg DAILY@0800 [facility] Administration Apixaban 2.5 mg 05/30/25 09:55 06/02/25 08:29 Apixaban 2.5 Mg Tablet PO 2.5 mg Q12HR MELANIE Administration Benzonatate 100 mg 05/28/25 13:38 Benzonatate 100 Mg Capsule PO TID PRN Cough Bisacodyl 10 mg 05/28/25 12:52 Bisacodyl 10 Mg Suppository RECTAL DAILY PRN Constipation Calcium Carbonate 500 mg 05/31/25 17:00 06/01/25 17:43 Calcium Carbonate (Oscal) 500 Mg Tablet PO 500 mg 1200,1700 [facility] Administration Dextrose 12.5 gm 05/28/25 12:54 Dextrose 50% 25 Gm/50 Ml Syringe IV PUSH PRN PRN Hypoglycemia Protocol Ezetimibe 10 mg 05/29/25 09:00 06/02/25 08:29 Ezetimibe 10 Mg Tablet PO 10 mg DAILY MELANIE Administration Empagliflozin 25 mg 05/29/25 09:00 06/02/25 08:29 Empagliflozin 25 Mg Tablet PO 25 mg DAILY MELANIE Administration Ergocalciferol 1,250 mcg 05/28/25 13:15 05/28/25 14:36 Ergocalciferol (Vitamin D2) 1,250 Mcg (50,000 Units) Capsule PO 1,250 mcg Tu@0900 MELANIE Administration Ferrous Sulfate 325 mg 06/01/25 12:00 06/01/25 12:08 Ferrous Sulfate 325 Mg Tablet PO 325 mg DAILY@1200 MELANIE Administration Fluticasone Propionate 1 spray 05/28/25 12:55 06/02/25 08:29 Fluticasone Propionate 0.05% Na Spr 16 Gm Btl (*Bkc) NASAL 1 spray Q12HR MELANIE Administration Furosemide 20 mg 05/29/25 09:00 06/02/25 08:29 Furosemide 20 Mg Tablet PO 20 mg QAM MELANIE Administration Glucagon 1 mg 05/28/25 12:54 Glucagon For Inj 1 Mg Vial IM PRN PRN Hypoglycemia Protocol Glucose 15 gm 05/28/25 12:54 Glucose Oral Gel 15 Gm Of Glucse In 37.5 Gm Tube PO PRN PRN Hypoglycemia Protocol Guaifenesin 600 mg 05/28/25 21:00 06/02/25 08:29 Guaifenesin 12 Hr 600 Mg Tabcr PO 600 mg Q12HR MELANIE Administration Dextrose 1,000 mls @ 100 mls/hr 05/28/25 12:54 Dextrose 5% 1,000 Ml IVPB PRN PRN Hypoglycemia Protocol Insulin Aspart 2 - 5 units 05/28/25 17:00 06/02/25 07:57 Insulin Aspart (*Bkc) 100 Units/Ml SUB-Q Not Given TIDWM [facility] Protocol Insulin Glargine 20 units 05/28/25 21:00 06/01/25 20:46 Insulin Glargine (*Bkc) 100 Units/Ml SUB-Q 20 units HS MELANIE Administration Lidocaine 1 patch 05/29/25 09:00 06/02/25 08:29 Lidocaine 5% Patch TRANSDERM 1 patch DAILY MELANIE Administration Magnesium Oxide 400 mg 06/01/25 12:00 06/01/25 12:09 Magnesium Oxide 400 Mg Tablet PO 400 mg DAILY@1200 MELANIE Administration Metoprolol Tartrate 5 mg 05/30/25 13:16 05/30/25 15:11 Metoprolol Tartrate Inj 5 Mg/5 Ml Vial IV PUSH 5 mg Q6HR PRN Administration tachycardia Metoprolol Tartrate 25 mg 05/30/25 13:55 06/02/25 06:15 Metoprolol Tartrate 25 Mg Tablet PO 25 mg Q6HR MELANIE Administration Multivitamins/Minerals 1 tab 06/01/25 12:00 06/01/25 12:08 Multivitamins /C Lutein (Centrum Silver) Tablet *Bkc PO 1 tab DAILY@1200 MELANIE Administration Pantoprazole Sodium 40 mg 05/29/25 09:00 06/02/25 08:29 Pantoprazole 40 Mg Tablet PO 06/28/25 08:59 40 mg DAILY MELANIE Administration Selenium Sulfide 1 applic 05/29/25 09:00 05/31/25 13:00 Selenium Sulfide 1% Shampoo 207 Ml TOPICAL Not Given [email or web address] MELANIE Simvastatin 40 mg 05/28/25 21:00 06/01/25 20:45 Simvastatin 20 Mg Tablet PO 40 mg HS MELANIE Administration Tramadol HCl 50 mg 05/28/25 13:00 06/02/25 08:29 Tramadol Hcl (*Crx) 50 Mg Tablet PO 50 mg QID MELANIE Administration Trazodone HCl 50 mg 05/28/25 21:00 06/01/25 20:45 Trazodone Hcl 50 Mg Tablet PO 50 mg QHS MELANIE Administration Radiology Results: ITS Impressions Chest X-Ray 05/28/25 10:08 IMPRESSION: Small opacities in the mid and lower lungs, greater on the left, which likely represents atelectasis or inflammatory/infectious process. Recommend follow-up to resolution to exclude underlying nodule. Consider a chest CT. Probable large hiatal hernia. If symptoms persist or worsen, consider a short-term follow-up study or addition al imaging for further assessment. Chest CT 05/28/25 10:47 IMPRESSION: 1. There are a few reticular, bandlike and groundglass opacities in the mid and lower lungs. In addition, there are a few small patchy consolidations in the left lower lung. Differential includes atelectasis/scarring and/or an inflammatory/infectious process. 2. Moderate-sized hiatal hernia. Labs Labs: Laboratory Results - last 24 hr 06/01/25 06/01/25 06/02/25 16:08 19:56 07:22 WBC RBC Hgb Hct MCV MCH MCHC RDW Plt Count MPV Sodium Potassium Chloride Carbon Dioxide Anion Gap BUN Creatinine Estim Creat Clear Calc Estimated GFR Glucose POC Capillary Glucose 124 H 176 H 82 Calcium Phosphorus Albumin 06/02/25 08:08 WBC 5.7 RBC 3.28 L Hgb 10.8 L Hct 33.0 L MCV 100.6 H MCH 32.9 MCHC 32.7 RDW 14.9 H Plt Count 164 MPV 9.2 Sodium 135 L Potassium 3.9 Chloride 98 Carbon Dioxide 28 Anion Gap 9 BUN 41 H Creatinine 1.39 H Estim Creat Clear Calc 24 Estimated GFR 36 L Glucose 134 H POC Capillary Glucose Calcium 8.9 Phosphorus 3.8 Albumin 3.6
[2025-06-02] MEDS: FERROUS SULFATE 325 MG TABLET PO (12:05)
[2025-06-02] MEDS: MULTIVITAMINS /C LUTEIN (CENTRUM SILVER) TABLET *BKC 1 TAB PO (12:05)
[2025-06-02] MEDS: MAGNESIUM OXIDE 400 MG TABLET PO (12:05)
[2025-06-02] MEDS: CALCIUM CARBONATE (OSCAL) 500 MG TABLET PO ×2 (12:05→16:56)
--- NOTE | 2025-06-02 12:51 | PM.PNCARD ---
Progress Note: A&P Assessment and Plan (1) Paroxysmal atrial fibrillation: Code(s): I48.0 - Paroxysmal atrial fibrillation Status: Acute Assessment and Plan: Proximal atrial fibrillation versus post cardioversion with recurrent episodes that are asymptomatic and rate controlled Status post cardioversion Continue Eliquis 2.5 mg b.i.d. Continue amiodarone 200 mg daily Continue metoprolol 25 mg daily (2) Elevated troponin: Code(s): R79.89 - Other specified abnormal findings of blood chemistry Status: Acute Assessment and Plan: Likely demand ischemia no evidence of ACS (3) Aortic valve stenosis: Code(s): I35.0 - Nonrheumatic aortic (valve) stenosis Status: Acute Assessment and Plan: Mild aortic valve disease follow-up echocardiogram (4) Diastolic congestive heart failure: Code(s): I50.30 - Unspecified diastolic (congestive) heart failure Status: Acute Assessment and Plan: Currently compensated Continue p.o. Lasix 20 mg daily and Jardiance Follow-up kidney function electrolytes (5) Benign hypertension with chronic kidney disease: Code(s): I12.9 - Hypertensive chronic kidney disease with stage 1 through stage 4 chronic kidney disease, or unspecified chronic kidney disease Status: Acute Assessment and Plan: Follow-up kidney function electrolytes (6) Hyperlipidemia: Qualifiers: Hyperlipidemia type: unspecified Qualified Code(s): E78.5 - Hyperlipidemia, unspecified Code(s): E78.5 - Hyperlipidemia, unspecified Status: Chronic Assessment and Plan: currently on simvastatin 40 mg daily and zetia 10 mg daily Subjective Date/time seen: 06/02/25 12:51 Interval history: Patient seen for proximal atrial fibrillation No acute events Telemetry proximal atrial fibrillation alternating with sinus rhythm when the patient is a patient heart rate 90-100 Review of Systems Review of Systems: All systems reviewed & are unremarkable except as noted in HPI and below Exam Const: General: comfortable and no acute distress Eyes: General: appearance normal, both eyes and all related structures Neck: Neck: supple and No no JVD Resp: Effort & Inspection: normal respiratory effort Auscultation: clear to auscultation bilaterally Cardio: Rate: tachycardic Rhythm: abnormal rhythm Other: irreg irreg Skin: General skin exam: normal color and no rashes or lesions noted Neuro: Speech: normal speech Extrem: General: normal to inspection and no edema Psych: Mental Status: mental status grossly normal Objective Data Vital Signs Vital Signs: Vital Signs - 24 hr 06/01/25 14:00 06/01/25 16:00 06/01/25 16:00 Temperature 36.8 C Pulse Rate 68 78 71 Respiratory Rate 24 H Blood Pressure 132/59 L Pulse Oximetry 96 Oxygen Delivery 06/01/25 16:23 06/01/25 17:43 06/01/25 18:00 Temperature 36.8 C Pulse Rate 78 107 H 76 Respiratory Rate 24 H Blood Pressure 132/59 L Pulse Oximetry 96 Oxygen Delivery 06/01/25 20:00 06/01/25 20:00 06/01/25 20:00 Temperature 36.8 C Pulse Rate 116 H 116 H 83 Respiratory Rate 24 H 18 Blood Pressure 106/42 L Pulse Oximetry 96 97 Oxygen Delivery Room Air 06/01/25 21:43 06/01/25 23:24 06/01/25 23:43 Temperature 36.7 C Pulse Rate 72 72 74 Respiratory Rate 18 Blood Pressure 113/62 Pulse Oximetry 97 Oxygen Delivery 06/02/25 00:00 06/02/25 04:00 06/02/25 06:15 Temperature Pulse Rate 71 74 76 Respiratory Rate Blood Pressure Pulse Oximetry Oxygen Delivery 06/02/25 08:00 06/02/25 08:00 06/02/25 08:00 Temperature 36.7 C Pulse Rate 84 78 Respiratory Rate 20 Blood Pressure 138/65 Pulse Oximetry 96 Oxygen Delivery Room Air 06/02/25 08:28 06/02/25 12:05 Temperature Pulse Rate 83 87 Respiratory Rate Blood Pressure Pulse Oximetry Oxygen Delivery Intake/Output Intake/Output: Intake & Output 05/30/25 05/31/25 06/01/25 06/02/25 23:59 23:59 23:59 22:59 Intake Total 2425.1 1163.4 1690 690 Output Total 1800 1200 1150 1100 Balance 625.1 -36.6 540 -410 Meds/Results Medications: Active Medications Generic Name Dose Route Start Last Admin Trade Name Freq PRN Reason Stop Dose Admin Acetaminophen 500 mg 05/28/25 12:52 Acetaminophen 500 Mg Tablet PO Q6H PRN Pain (Scale Score 1-3) Allopurinol 200 mg 05/29/25 09:00 06/02/25 08:28 Allopurinol 100 Mg Tablet PO 200 mg DAILY MELANIE Administration Amiodarone HCl 200 mg 05/31/25 11:25 06/02/25 08:28 Amiodarone Hcl 200 Mg Tablet PO 200 mg DAILY@0800 MELANIE Administration Apixaban 2.5 mg 05/30/25 09:55 06/02/25 08:29 Apixaban 2.5 Mg Tablet PO 2.5 mg Q12HR MELANIE Administration Benzonatate 100 mg 05/28/25 13:38 Benzonatate 100 Mg Capsule PO TID PRN Cough Bisacodyl 10 mg 05/28/25 12:52 Bisacodyl 10 Mg Suppository RECTAL DAILY PRN Constipation Calcium Carbonate 500 mg 05/31/25 17:00 06/02/25 12:05 Calcium Carbonate (Oscal) 500 Mg Tablet PO 500 mg 1200,1700 MELANIE Administration Dextrose 12.5 gm 05/28/25 12:54 Dextrose 50% 25 Gm/50 Ml Syringe IV PUSH PRN PRN Hypoglycemia Protocol Ezetimibe 10 mg 05/29/25 09:00 06/02/25 08:29 Ezetimibe 10 Mg Tablet PO 10 mg DAILY MELANIE Administration Empagliflozin 25 mg 05/29/25 09:00 06/02/25 08:29 Empagliflozin 25 Mg Tablet PO 25 mg DAILY MELANIE Administration Ergocalciferol 1,250 mcg 05/28/25 13:15 05/28/25 14:36 Ergocalciferol (Vitamin D2) 1,250 Mcg (50,000 Units) Capsule PO 1,250 mcg Tu@0900 MELANIE Administration Ferrous Sulfate 325 mg 06/01/25 12:00 06/02/25 12:05 Ferrous Sulfate 325 Mg Tablet PO 325 mg DAILY@1200 MELANIE Administration Fluticasone Propionate 1 spray 05/28/25 12:55 06/02/25 08:29 Fluticasone Propionate 0.05% Na Spr 16 Gm Btl (*Bkc) NASAL 1 spray Q12HR MELANIE Administration Furosemide 20 mg 05/29/25 09:00 06/02/25 08:29 Furosemide 20 Mg Tablet PO 20 mg QAM MELANIE Administration Glucagon 1 mg 05/28/25 12:54 Glucagon For Inj 1 Mg Vial IM PRN PRN Hypoglycemia Protocol Glucose 15 gm 05/28/25 12:54 Glucose Oral Gel 15 Gm Of Glucse In 37.5 Gm Tube PO PRN PRN Hypoglycemia Protocol Guaifenesin 600 mg 05/28/25 21:00 06/02/25 08:29 Guaifenesin 12 Hr 600 Mg Tabcr PO 600 mg Q12HR MELANIE Administration Dextrose 1,000 mls @ 100 mls/hr 05/28/25 12:54 Dextrose 5% 1,000 Ml IVPB PRN PRN Hypoglycemia Protocol Insulin Aspart 2 - 5 units 05/28/25 17:00 06/02/25 11:49 Insulin Aspart (*Bkc) 100 Units/Ml SUB-Q Not Given TIDWM MELANIE Protocol Insulin Glargine 20 units 05/28/25 21:00 06/01/25 20:46 Insulin Glargine (*Bkc) 100 Units/Ml SUB-Q 20 units HS MELANIE Administration Lidocaine 1 patch 05/29/25 09:00 06/02/25 08:29 Lidocaine 5% Patch TRANSDERM 1 patch DAILY MELAINE Administration Magnesium Oxide 400 mg 06/01/25 12:00 06/02/25 12:05 Magnesium Oxide 400 Mg Tablet PO 400 mg DAILY@1200 MELANIE Administration Metoprolol Tartrate 5 mg 05/30/25 13:16 05/30/25 15:11 Metoprolol Tartrate Inj 5 Mg/5 Ml Vial IV PUSH 5 mg Q6HR PRN Administration tachycardia Metoprolol Tartrate 25 mg 05/30/25 13:55 06/02/25 12:05 Metoprolol Tartrate 25 Mg Tablet PO 25 mg Q6HR MELANIE Administration Multivitamins/Minerals 1 tab 06/01/25 12:00 06/02/25 12:05 Multivitamins /C Lutein (Centrum Silver) Tablet *Bkc PO 1 tab DAILY@1200 [facility] Administration Pantoprazole Sodium 40 mg 05/29/25 09:00 06/02/25 08:29 Pantoprazole 40 Mg Tablet PO 06/28/25 08:59 40 mg DAILY MELANIE Administration Selenium Sulfide 1 applic 05/29/25 09:00 05/31/25 13:00 Selenium Sulfide 1% Shampoo 207 Ml TOPICAL Not Given [email or web address] [facility] Simvastatin 40 mg 05/28/25 21:00 06/01/25 20:45 Simvastatin 20 Mg Tablet PO 40 mg HS MELANIE Administration Tramadol HCl 50 mg 05/28/25 13:00 06/02/25 12:05 Tramadol Hcl (*Crx) 50 Mg Tablet PO 50 mg QID MELANIE Administration Trazodone HCl 50 mg 05/28/25 21:00 06/01/25 20:45 Trazodone Hcl 50 Mg Tablet PO 50 mg QHS MELANIE Administration Radiology Results: ITS Impressions Chest X-Ray 05/28/25 10:08 IMPRESSION: Small opacities in the mid and lower lungs, greater on the left, which likely represents atelectasis or inflammatory/infectious process. Recommend follow-up to resolution to exclude underlying nodule. Consider a chest CT. Probable large hiatal hernia. If symptoms persist or worsen, consider a short-term follow-up study or additional imaging for further assessment. Chest CT 05/28/25 10:47 IMPRESSION: 1. There are a few reticular, bandlike and groundglass opacities in the mid and lower lungs. In addition, there are a few small patchy consolidations in the left lower lung. Differential includes atelectasis/scarring and/or an inflammatory/infectious process. 2. Moderate-sized hiatal hernia. Labs Labs: Laboratory Results - last 24 hr 06/01/25 06/01/25 06/02/25 16:08 19:56 07:22 WBC RBC Hgb Hct MCV MCH MCHC RDW Plt Count MPV Sodium Potassium Chloride Carbon Dioxide Anion Gap BUN Creatinine Estim Creat Clear Calc Estimated GFR Glucose POC Capillary Glucose 124 H 176 H 82 Calcium Phosphorus Albumin 06/02/25 06/02/25 08:08 11:28 WBC 5.7 RBC 3.28 L Hgb 10.8 L Hct 33.0 L MCV 100.6 H MCH 32.9 MCHC 32.7 RDW 14.9 H Plt Count 164 MPV 9.2 Sodium 135 L Potassium 3.9 Chloride 98 Carbon Dioxide 28 Anion Gap 9 BUN 41 H Creatinine 1.39 H Estim Creat Clear Calc 24 Estimated GFR 36 L Glucose 134 H POC Capillary Glucose 178 H Calcium 8.9 Phosphorus 3.8 Albumin 3.6
--- NOTE | 2025-06-02 16:28 | ECG_ITS ---
Test Date: 2025-06-02 17:17:10 Measurements Intervals [place] Rate: 84 P: 69 [place]: 224 QRS: 106 QRSD: 142 T: -27 QT: 438 QTc: 518 Interpretive Statements SINUS RHYTHM WITH FIRST DEGREE AV BLOCK MARKED RIGHT AXIS DEVIATION [QRS AXIS > 100] RIGHT BUNDLE BRANCH BLOCK [120+ ms QRS DURATION, UPRIGHT V1, 40+ ms S IN I/aVL/V4/V5/V6] Compared to ECG 05/31/2025 11:25:08 Sinus arrhythmia no longer present Electronically Signed On 06-02-2025 17:32:12 [employer] by Erika Maciel M.D.
[2025-06-02] MEDS: INSULIN ASPART (*BKC) 100 UNITS/ML SUB-Q (16:57)
--- NOTE | 2025-06-02 17:45 | PC.NURSE ---
pt brought to room 348 from IMU via bed. pt oriented to new room.
--- NOTE | 2025-06-02 17:45 | PC.NURSE ---
This patient, Elizabeth Negron, was transferred to [[id number]] on 06/02/25 at 1745. Personal belongings sent with patient. Report given to [Fiordaliza RAMOS]. Appropriate documentation sent with patient.
[2025-06-02] MEDS: SIMVASTATIN 20 MG TABLET 40 MG PO (20:44)
[2025-06-02] MEDS: INSULIN GLARGINE (*BKC) 100 UNITS/ML 20 UNITS SUB-Q (20:48)
[2025-06-03] VITALS (9 sets, daily range): BP systolic 125; BP diastolic 58; PULSE 71–90; RESP 16; TEMP 36.4; O2SAT 95
[2025-06-03] MEDS: METOPROLOL TARTRATE 25 MG TABLET PO ×3 (00:37→12:12)
[2025-06-03 05:10] LABS: Hematocrit 30.8 % (37.0-47.0); Hemoglobin 9.9 g/dL (12.0-15.0); Mean Corpuscular HGB Conc 32.1 g/dl (32-36); Mean Corpuscular Hemoglobin 32.7 pg (26-34); Mean Corpuscular Volume 101.7 fl (80-100); Platelet Count Result 145 k/mm3 (150-375); Red Blood Count 3.03 M/mm3 (4.2-5.4); White Blood Count 5.5 K/mm3 (4.5-10.0)
[2025-06-03 05:30] LABS: Albumin Level 3.2 g/dL (3.5-5.1); Anion Gap 6 mmol/L (4-12); Blood Urea Nitrogen 39 mg/dL (7-17); Calcium 8.8 mg/dL (8.4-10.2); Carbon Dioxide 30 mmol/L (22-30); Chloride 99 mmol/L (98-107); Estimated CRCL calculation 25 ml/min; Estimated Glomerular Filt Rate 37; Glucose 76 mg/dL (65-110); Potassium 3.7 mmol/L (3.4-5.0); Sodium 135 mmol/L (137-145)
[2025-06-03] MEDS: LIDOCAINE 5% PATCH 1 PATCH TRANSDERM (09:13)
[2025-06-03] MEDS: AMIODARONE HCL 200 MG TABLET PO (09:13)
[2025-06-03] MEDS: PANTOPRAZOLE 40 MG TABLET PO (09:13)
[2025-06-03] MEDS: EMPAGLIFLOZIN 25 MG TABLET PO (09:13)
[2025-06-03] MEDS: EZETIMIBE 10 MG TABLET PO (09:13)
[2025-06-03] MEDS: FUROSEMIDE 20 MG TABLET PO (09:13)
[2025-06-03] MEDS: APIXABAN 2.5 MG TABLET PO (09:13)
[2025-06-03] MEDS: guaiFENesin 12 HR 600 MG TABCR PO (09:13)
[2025-06-03] MEDS: FLUTICASONE PROPIONATE 0.05% NA SPR 16 GM BTL (*BKC) 1 SPRAY NASAL (09:14)
[2025-06-03] MEDS: traMADol HCL (*CRX) 50 MG TABLET PO ×2 (09:14→12:12)
[2025-06-03] MEDS: MULTIVITAMINS /C LUTEIN (CENTRUM SILVER) TABLET *BKC 1 TAB PO (12:12)
[2025-06-03] MEDS: MAGNESIUM OXIDE 400 MG TABLET PO (12:12)
[2025-06-03] MEDS: FERROUS SULFATE 325 MG TABLET PO (12:12)
[2025-06-03] MEDS: SELENIUM SULFIDE 1% SHAMPOO 207 ML 1 APPLIC TOPICAL (12:13)
[2025-06-03] MEDS: CALCIUM CARBONATE (OSCAL) 500 MG TABLET PO (12:15)
--- NOTE | 2025-06-03 13:17 | PM.PNCARD ---
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): Qualifiers: Heart failure type: unspecified Qualified Code(s): I11.0 - Hypertensive heart disease with heart failure Code(s): I11.0 - Hypertensive heart disease with heart failure Status: Acute (4) Type 2 diabetes mellitus with hyperglycemia, with long-term current use of insulin: Code(s): E11.65 - Type 2 diabetes mellitus with hyperglycemia; Z79.4 - buttermaker (current) use of insulin Status: Acute (5) CHF (congestive heart failure): Qualifiers: Heart failure chronicity: acute on chronic Heart failure type: right-sided Qualified Code(s): I50.813 - Acute on chronic right heart failure Code(s): I50.9 - Heart failure, unspecified Status: Acute (6) Diabetes mellitus: Code(s): E11.9 - Type 2 diabetes mellitus without complications Status: Acute Plan Assessment/plan 1. Paroxysmal atrial fibrillation. Status post cardioversion. Currently on Eliquis 2.5 mg b.i.d., amiodarone 200 mg daily and metoprolol 25 mg. Monitor shows normal sinus rhythm with heart rate of 70 per minute. 2. Amiodarone therapy started. Please follow recommended testing with thyroid function test, liver function test in 3 months. Follow-up chest x-ray and split eye exam in 1 year. 3. Currently blood pressure is 125/58 mm mercury and heart rate is 74 per minute. 4. Clinically patient has improved and ambulating with help. Okay to discharge patient back to her group home home with home health service today. Thank you again for allowing us to participate in care of this patient there. Please have patient make outpatient follow-up appointment with Cardiology. Subjective Date/time seen: 06/03/25 13:17 Interval history: Patient was examined at the bedside. Patient appears to be comfortable without shortness of breath, chest pain or orthopnea. Monitor shows normal sinus rhythm with heart rate of 70 per minute. Echocardiogram on 05/29/2025, revealed normal left ventricular size and systolic function at 65% with normal right ventricle and dilated left atrium. Patient has moderate mitral and tricuspid regurgitation. Review of Systems Review of Systems: Twelve point review of system was completed. Pertinent positive and negative findings per HPI. Exam Narrative: Patient examined at the bedside. Patient is awake alert. Patient states that she is feeling better. Monitor shows normal sinus rhythm with heart rate of 70 per minute. Head and neck examination is unremarkable. Sclerae is nonicteric. ENT examination negative rigidity no JVD. Lungs reveal decreased air entry bilaterally. There is no wheezing or crepitation. Heart sounds reveal normal S1-S2. There is grade 2-3/6 systolic murmur heard at the left sternal border radiating to aortic area. Abdomen is soft and nontender. There is no hepatosplenomegaly femoral pulses present. Extremities revealed no pedal edema upper Neurological examination is intact. Objective Data Vital Signs Vital Signs: Vital Signs - 24 hr 06/02/25 16:00 06/02/25 16:00 06/02/25 16:56 Temperature 36.4 C Pulse Rate 80 82 87 Respiratory Rate 16 Blood Pressure 125/57 L Pulse Oximetry 97 Oxygen Delivery 06/02/25 20:00 06/02/25 20:00 06/02/25 20:14 Temperature 36.4 C Pulse Rate 81 110 H Respiratory Rate 18 Blood Pressure 124/62 Pulse Oximetry 99 Oxygen Delivery Room Air 06/03/25 00:00 06/03/25 00:37 06/03/25 04:00 Temperature Pulse Rate 71 74 75 Respiratory Rate Blood Pressure Pulse Oximetry Oxygen Delivery 06/03/25 04:52 06/03/25 05:24 06/03/25 08:00 Temperature 36.4 C Pulse Rate 75 80 74 Respiratory Rate 16 Blood Pressure 125/58 L Pulse Oximetry 95 Oxygen Delivery 06/03/25 09:13 06/03/25 09:15 06/03/25 12:00 Temperature Pulse Rate 80 90 Respiratory Rate Blood Pressure Pulse Oximetry Oxygen Delivery Room Air 06/03/25 12:12 Temperature Pulse Rate 80 Respiratory Rate Blood Pressure Pulse Oximetry Oxygen Delivery Intake/Output Intake/Output: Intake & Output 05/31/25 06/01/25 06/02/25 06/03/25 23:59 23:59 22:59 23:59 Intake Total 1163.4 1690 1170 340 Output Total 1200 1150 1400 600 Balance -36.6 540 -230 -260 Meds/Results Medications: Active Medications Generic Name Dose Route Start Last Admin Trade Name Freq PRN Reason Stop Dose Admin Acetaminophen 500 mg 05/28/25 12:52 Acetaminophen 500 Mg Tablet PO Q6H PRN Pain (Scale Score 1-3) Allopurinol 200 mg 05/29/25 09:00 06/03/25 09:13 Allopurinol 100 Mg Tablet PO 200 mg DAILY MELANIE Administration Amiodarone HCl 200 mg 05/31/25 11:25 06/03/25 09:13 Amiodarone Hcl 200 Mg Tablet PO 200 mg DAILY@0800 MELANIE Administration Apixaban 2.5 mg 05/30/25 09:55 06/03/25 09:13 Apixaban 2.5 Mg Tablet PO 2.5 mg Q12HR MELANIE Administration Benzonatate 100 mg 05/28/25 13:38 Benzonatate 100 Mg Capsule PO TID PRN Cough Bisacodyl 10 mg 05/28/25 12:52 Bisacodyl 10 Mg Suppository RECTAL DAILY PRN Constipation Calcium Carbonate 500 mg 05/31/25 17:00 06/03/25 12:15 Calcium Carbonate (Oscal) 500 Mg Tablet PO 500 mg 1200,1700 MELANIE Administration Dextrose 12.5 gm 05/28/25 12:54 Dextrose 50% 25 Gm/50 Ml Syringe IV PUSH PRN PRN Hypoglycemia Protocol Ezetimibe 10 mg 05/29/25 09:00 06/03/25 09:13 Ezetimibe 10 Mg Tablet PO 10 mg DAILY MELANIE Administration Empagliflozin 25 mg 05/29/25 09:00 06/03/25 09:13 Empagliflozin 25 Mg Tablet PO 25 mg DAILY MELANIE Administration Ergocalciferol 1,250 mcg 05/28/25 13:15 05/28/25 14:36 Ergocalciferol (Vitamin D2) 1,250 Mcg (50,000 Units) Capsule PO 1,250 mcg Tu@0900 MELANIE Administration Ferrous Sulfate 325 mg 06/01/25 12:00 06/03/25 12:12 Ferrous Sulfate 325 Mg Tablet PO 325 mg DAILY@1200 MELANIE Administration Fluticasone Propionate 1 spray 05/28/25 12:55 06/03/25 09:14 Fluticasone Propionate 0.05% Na Spr 16 Gm Btl (*Bkc) NASAL 1 spray Q12HR MELANIE Administration Furosemide 20 mg 05/29/25 09:00 06/03/25 09:13 Furosemide 20 Mg Tablet PO 20 mg QAM MELANIE Administration Glucagon 1 mg 05/28/25 12:54 Glucagon For Inj 1 Mg Vial IM PRN PRN Hypoglycemia Protocol Glucose 15 gm 05/28/25 12:54 Glucose Oral Gel 15 Gm Of Glucse In 37.5 Gm Tube PO PRN PRN Hypoglycemia Protocol Guaifenesin 600 mg 05/28/25 21:00 06/03/25 09:13 Guaifenesin 12 Hr 600 Mg Tabcr PO 600 mg Q12HR MELANIE Administration Dextrose 1,000 mls @ 100 mls/hr 05/28/25 12:54 Dextrose 5% 1,000 Ml IVPB PRN PRN Hypoglycemia Protocol Insulin Aspart 2 - 5 units 05/28/25 17:00 06/03/25 12:15 Insulin Aspart (*Bkc) 100 Units/Ml SUB-Q Not Given TIDWM MELANIE Protocol Insulin Glargine 20 units 05/28/25 21:00 06/02/25 20:48 Insulin Glargine (*Bkc) 100 Units/Ml SUB-Q 20 units HS MELANIE Administration Lidocaine 1 patch 05/29/25 09:00 06/03/25 09:13 Lidocaine 5% Patch TRANSDERM 1 patch DAILY MELANIE Administration Magnesium Oxide 400 mg 06/01/25 12:00 06/03/25 12:12 Magnesium Oxide 400 Mg Tablet PO 400 mg DAILY@1200 MELANIE Administration Metoprolol Tartrate 5 mg 05/30/25 13:16 05/30/25 15:11 Metoprolol Tartrate Inj 5 Mg/5 Ml Vial IV PUSH 5 mg Q6HR PRN Administration tachycardia Metoprolol Tartrate 25 mg 05/30/25 13:55 06/03/25 12:12 Metoprolol Tartrate 25 Mg Tablet PO 25 mg Q6HR MELANIE Administration Multivitamins/Minerals 1 tab 06/01/25 12:00 06/03/25 12:12 Multivitamins /C Lutein (Centrum Silver) Tablet *Bkc PO 1 tab DAILY@1200 MELANIE Administration Pantoprazole Sodium 40 mg 05/29/25 09:00 06/03/25 09:13 Pantoprazole 40 Mg Tablet PO 06/28/25 08:59 40 mg DAILY MELANIE Administration Selenium Sulfide 1 applic 05/29/25 09:00 06/03/25 12:13 Selenium Sulfide 1% Shampoo 207 Ml TOPICAL 1 applic MoWeFr@0900 MELANIE Administration Simvastatin 40 mg 05/28/25 21:00 06/02/25 20:44 Simvastatin 20 Mg Tablet PO 40 mg HS MELANIE Administration Tramadol HCl 50 mg 05/28/25 13:00 06/03/25 12:12 Tramadol Hcl (*Crx) 50 Mg Tablet PO 50 mg QID MELANIE Administration Trazodone HCl 50 mg 05/28/25 21:00 06/02/25 20:43 Trazodone Hcl 50 Mg Tablet PO 50 mg QHS MELANIE Administration Radiology Results: ITS Impressions Chest X-Ray 05/28/25 10:08 IMPRESSION: Small opacities in the mid and lower lungs, greater on the left, which likely represents atelectasis or inflammatory/infectious process. Recommend follow-up to resolution to exclude underlying nodule. Consider a chest CT. Probable large hiatal hernia. If symptoms persist or worsen, consider a short-term follow-up study or additional imaging for further assessment. Chest CT 05/28/25 10:47 IMPRESSION: 1. There are a few reticular, bandlike and groundglass opacities in the mid and lower lungs. In addition, there are a few small patchy consolidations in the left lower lung. Differential includes atelectasis/scarring and/or an inflammatory/infectious process. 2. Moderate-sized hiatal hernia. Labs Labs: Laboratory Results - last 24 hr 06/02/25 06/02/25 06/03/25 16:02 20:21 05:00 WBC 5.5 RBC 3.03 L Hgb 9.9 L Hct 30.8 L MCV 101.7 H MCH 32.7 MCHC 32.1 RDW 14.9 H Plt Count 145 L MPV 8.5 Sodium 135 L Potassium 3.7 Chloride 99 Carbon Dioxide 30 Anion Gap 6 BUN 39 H Creatinine 1.34 H Estim Creat Clear Calc 25 Estimated GFR 37 L Glucose 76 POC Capillary Glucose 244 H 171 H Calcium 8.8 Phosphorus 3.7 Albumin 3.2 L 06/03/25 06/03/25 08:03 11:54 WBC RBC Hgb Hct MCV MCH MCHC RDW Plt Count MPV Sodium Potassium Chloride Carbon Dioxide Anion Gap BUN Creatinine Estim Creat Clear Calc Estimated GFR Glucose POC Capillary Glucose 75 176 H Calcium Phosphorus Albumin
--- NOTE | 2025-06-03 13:21 | P.DS_ITS ---
DS: Admitting Diagnosis Discharge Date 06/03/2025 Admitting Diagnosis Back Pain DS: Discharge Diagnosis Discharge Diagnosis (1) Atrial fibrillation with RVR: Code(s): I48.91 - Unspecified atrial fibrillation Status: Acute DS: Summary Hospital Course Hospital Course: Reason for Admission The patient was admitted for evaluation and management of acute onset back and chest pain, shortness of breath, and palpitations. She was found to be in atrial fibrillation with rapid ventricular response (AFib with RVR) and had evidence of pneumonia. Hospital Course 1. Paroxysmal Atrial Fibrillation with RVR * Presented with HR in the 140s, symptomatic with chest/back pain and dyspnea. * Initial rate control attempted with IV metoprolol, then diltiazem infusion, with partial response. * Transitioned to IV amiodarone for persistent AFib with RVR. * PRIYA performed, no left atrial thrombus identified. * Underwent successful synchronized cardioversion (200J), restored to sinus rhythm. * Maintained on amiodarone 200 mg daily, metoprolol 25 mg daily, and apixaban 2.5 mg BID for anticoagulation. * Telemetry post-cardioversion showed sinus rhythm alternating with paroxysmal AFib, rate controlled, and asymptomatic. * Cardiology followed throughout admission. 2. Pneumonia * Imaging (CXR/CT) showed bilateral opacities and ground-glass changes, consistent with pneumonia. * No leukocytosis; viral PCR negative. * Treated with ceftriaxone and doxycycline, completed course through 06/02. * Supportive care included guaifenesin, acetaminophen, benzonatate, and incentive spirometry. * Clinical improvement noted, no ongoing respiratory distress. 3. Diastolic Congestive Heart Failure (CHF) * History of diastolic CHF, severe pulmonary hypertension, and moderate mitral/tricuspid regurgitation. * BNP elevated (15,100). * No evidence of acute volume overload; compensated on home furosemide 20 mg daily and empagliflozin 25 mg daily. * Monitored I&Os and renal function closely. 4. Chronic Kidney Disease (Stage 4) * Baseline CKD with creatinine 1.7?1.9 mg/dL, GFR 27. * Renal function stable or improved during admission (creatinine 1.39 at discharge). * Electrolytes monitored and remained stable. 5. 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 * Blood glucose monitored ACHS; no significant hypoglycemia or hyperglycemia. * A1c 6.5% (11/2024). 6. Anemia * Baseline anemia (Hb 10.7?11.8), stable during admission. * No transfusion required. 7. Hypertension * Well controlled during admission; home metoprolol held initially, then resumed at 25 mg daily. 8. Hyperlipidemia * Continued simvastatin 40 mg HS and ezetimibe 10 mg daily. 9. Aortic Valve Stenosis * Mild aortic valve disease (LAURENT 1.2?1.4 cm?), mild-moderate regurgitation, no acute intervention required. 10. Other Notable History * AVM of colon with prior GI bleeding (2022), PVD, carotid stenosis, severe pulmonary hypertension, osteoarthritis, prior fractures, depression, diabetic neuropathy, and multiple prior surgeries. Pertinent Labs and Imaging * CBC: Mild chronic anemia, no leukocytosis. * BMP: Stable CKD, BUN 33, creatinine improved to 1.39. * Troponin: Mildly elevated but flat, consistent with demand ischemia. * CXR/CT: Bilateral opacities, no acute cardiopulmonary process. * ECHO: Normal LV size and function (EF 60?65%), dilated LA, moderate MR/TR, mild AR, severe LAE, no thrombus on PRIYA. * Cardiac cath: PRIYA/cardioversion performed, no thrombus, successful anabaptist of sinus rhythm. Discharge Medications * Amiodarone?200 mg PO daily * Metoprolol?25 mg PO daily * Apixaban (Eliquis)?2.5 mg PO BID * Furosemide (Lasix)?20 mg PO daily * Empagliflozin (Jardiance)?25 mg PO daily * Insulin glargine (Lantus)?25 units subcut HS * Simvastatin?40 mg PO HS * Ezetimibe?10 mg PO daily * Other home medications: calcium carbonate, cholecalciferol, magnesium oxide, acetaminophen, multivitamin, allopurinol, omeprazole, bisacodyl, ferrous sulfate, trazodone, tramadol, fluticasone nasal spray, ketoconazole shampoo, and others as previously listed. * Continue supportive medications?as needed for pain, cough, and constipation. Discharge Instructions * Return to assisted living with home health services. * Monitor for:?chest pain, palpitations, shortness of breath, syncope, bleeding, or signs of infection. * Activity:?As tolerated, with assistance as needed. * Diet:?Heart healthy, diabetic diet. * Follow-up: * Primary care within 1 week * Cardiology follow-up within 1?2 weeks * Repeat labs: CBC, BMP, INR, and renal function as outpatient * Continue physical therapy as indicated * Anticoagulation:?Continue apixaban for stroke prevention in AFib. * Heart failure:?Monitor daily weights, report any sudden weight gain, swelling, or increased shortness of breath. * Diabetes:?Continue home glucose monitoring, report any hypoglycemia or hyperglycemia. * Medication adherence:?Emphasize importance of taking all medications as prescribed. Condition at Discharge * Hemodynamically stable, at cognitive and functional baseline, ambulating with assistance, tolerating oral intake, no acute complaints. F/u with PCP in 3-5 days F/u with cardiology as instructed Time Spent with Patient Time attestation: Total time spent providing and/or coordinating discharge services: DS: Data Data Completed and Pending Labs on day of discharge: Labs from last 24 hours 06/03/25 06/03/25 06/03/25 11:54 08:03 05:00 WBC 5.5 RBC 3.03 L Hgb 9.9 L Hct 30.8 L MCV 101.7 H MCH 32.7 MCHC 32.1 RDW 14.9 H Plt Count 145 L MPV 8.5 Sodium 135 L Potassium 3.7 Chloride 99 Carbon Dioxide 30 Anion Gap 6 BUN 39 H Creatinine 1.34 H Estim Creat Clear Calc 25 Estimated GFR 37 L Glucose 76 POC Capillary Glucose 176 H 75 Calcium 8.8 Phosphorus 3.7 Albumin 3.2 L 06/02/25 06/02/25 20:21 16:02 WBC RBC Hgb Hct MCV MCH MCHC RDW Plt Count MPV Sodium Potassium Chloride Carbon Dioxide Anion Gap BUN Creatinine Estim Creat Clear Calc Estimated GFR Glucose POC Capillary Glucose 171 H 244 H Calcium Phosphorus Albumin Preliminary micro results at discharge 05/29/25 14:01 Blood Culture - Preliminary Blood 05/29/25 14:01 Blood Culture - Preliminary Blood Discharge Plan Discharge Attending physician on discharge: Lisa Childers Consulting providers: Salina Tillman Discharging Clinician: Lisa Childers Anticipated Discharge Date/Time: 06/03/25 13:09 Patient Disposition: Home with Home Health Service Activity: as tolerated Diet: as tolerated, heart healthy and diabetic Discharge Instructions: Per Care Coordination. Patient to have [facility] for RN/PT/OT eval and treat [phone]. They will contact patient to schedule first visit. Patient Instructions: Antibiotic Form Patient Language: Zambian Stand Alone Forms: General Discharge Information Follow-up/Referrals: Christopher Aguiar MD [Primary Care Provider, Family Practice] Referral Note: F/u with PCP in 3-5 days Salina Tillman, [employer] [Advanced Practice Nurse, Cardiology] Referral Note: F/u with cardiology as instructed Discharge Medications: New Eliquis 2.5 mg Tablet 2.5 mg PO Q12HR 30 Days Qty: 60 1RF amiodarone [Pacerone] 200 mg Tablet 200 mg PO DAILY@0800 30 Days Qty: 30 1RF metoprolol succinate 25 mg tablet extended release 24 hr 25 mg PO DAILY 30 Days Qty: 30 0RF Continued magnesium oxide 400 mg magnesium capsule 400 mg PO DAILY metoprolol tartrate 50 mg tablet 50 mg PO Q12H Qty: 180 3RF Jardiance 25 mg tablet 25 mg PO DAILY Qty: 90 1RF insulin lispro [Humalog KwikPen Insulin] 100 unit/mL insulin pen See Rx Instructions subcut TID Qty: 15 3RF Rx Instructions: subcutaneously three times a day; 10 units with breakfast and lunch, 12-15 units with dinner. omeprazole 20 mg capsule,delayed release(DR/EC) 20 mg PO DAILY Qty: 90 0RF allopurinol 100 mg tablet 200 mg PO DAILY Qty: 180 1RF calcium carbonate 600 mg calcium (1,500 mg) tablet 600 mg PO BID ezetimibe 10 mg tablet 10 mg PO DAILY Qty: 90 4RF ferrous sulfate [FeroSul] 325 mg (65 mg iron) tablet 325 mg PO DAILY Qty: 30 2RF bisacodyl 10 mg Suppository 10 mg RECTAL DAILY PRN (Reason: Constipation) Rx Instructions: PRN for constipation if no results for MOM cholecalciferol (vitamin D3) 1,250 mcg (50,000 unit) Capsule 1,250 mcg PO WEEKLY Rx Instructions: every tuesday Centrum Adults 12 mcg Tablet,Chewable 1 tablet PO DAILY acetaminophen 500 mg capsule 500 mg PO Q6H PRN (Reason: Pain (Scale Score 1-3)) insulin glargine [Lantus U-100 Insulin] 100 unit/mL solution 25 unit subcut HS furosemide 20 mg tablet 20 mg PO QAM Qty: 90 0RF glucose [Dex4 Glucose] 4 gram tablet,chewable 4 g PO Q15M PRN (Reason: hypoglycemia) Qty: 7 0RF Rx Instructions: until symptoms of low blood sugar are controlled (DME) Depend Easy Fit Undergarments Misc See Rx Instructions .Route Qty: 120 0RF Rx Instructions: use daily for urinary incontinence trazodone 50 mg tablet 50 mg PO QHS Qty: 90 2RF (DME) Novofine Autocover 30 gauge x 1/3 needle See Rx Instructions .Route Qty: 100 4RF Rx Instructions: As directed (DME) blood-glucose meter [Contour Next Gen Meter] Kit See Rx Instructions .Route Qty: 1 0RF Rx Instructions: use to check blood glucose 3 times daily (DME) Contour Next Test Strips Strip See Rx Instructions .Route Qty: 100 3RF Rx Instructions: Use to check blood glucose 3 times daily fluticasone propionate 50 mcg/actuation spray,suspension See Rx Instructions .ROUTE .COMPLEX Qty: 16 2RF Dose Instruction: USE 1 SPRAY IN EACH NOSTRIL TWICE DAILY IN THE MORNING AND AT BEDTIME Rx Instructions: USE 1 SPRAY IN EACH NOSTRIL TWICE DAILY IN THE MORNING AND AT BEDTIME tramadol 50 mg tablet 50 mg PO QID Qty: 120 0RF ketoconazole 2 % shampoo 1 applic topical 3XW Qty: 120 1RF Rx Instructions: use Tuesday, Tuesday, Tuesday. Changed simvastatin 40 mg tablet 20 mg PO HS 30 Days Qty: 15 0RF Date of admission: 05/29/25 11:10 Primary Care Provider: Christopher Aguiar Admitting Provider: Joni Mckeon Attending physician on admission: Joni Mckeon Condition: Serious
== END 2025-06-03 15:00 | disposition home health service (06) | DRG 308 ==
LOC: ANHED 07:44 → ANHIMU 11:14 → ANH3MED 06-03 11:42 → ANHIMU 06-06 11:06
PROVIDERS: Internal Medicine; Specialist; Student in an Organized Health Care Education/Training Program; Admitting Provider Family Medicine; Emergency Provider Emergency Medicine; PCP Family Medicine; Visit Provider Internal Medicine
PROC: 5A2204Z Restoration of Cardiac Rhythm, Single (ICD-10-PCS; principal; 2025-05-31 11:00)
PROC: 5A2204Z Restoration of Cardiac Rhythm, Single (ICD-10-PCS; CPT 93312; 2025-05-31 11:00)
DX: I48.0 Paroxysmal atrial fibrillation (principal); J18.9 Pneumonia, unspecified organism; N18.4 Chronic kidney disease, stage 4 (severe); I13.0 Hypertensive heart and chronic kidney disease with heart failure and stage 1 through stage 4 chronic kidney disease, or unspecified chronic kidney disease; I24.89 Other forms of acute ischemic heart disease; I50.32 Chronic diastolic (congestive) heart failure; E11.22 Type 2 diabetes mellitus with diabetic chronic kidney disease; D64.9 Anemia, unspecified; E78.5 Hyperlipidemia, unspecified; I35.0 Nonrheumatic aortic (valve) stenosis; E11.42 Type 2 diabetes mellitus with diabetic polyneuropathy; M19.90 Unspecified osteoarthritis, unspecified site; I73.9 Peripheral vascular disease, unspecified; Z90.49 Acquired absence of other specified parts of digestive tract; Z89.422 Acquired absence of other left toe(s)
CPT/HCPCS: 36415; 71045; 71250; 80048; 80053; 80069; 82948; 83735; 83880; 84443; 84484; 85025; 85027; 85610; 85730; 87040; 87070; 87205; 87637; 92960; 93005; 93306; 93312; 93320; 93325; 96361; 96365; 96366; 96367; 96374; 96375; 97116; 97161; 97166; 97530; 97535; 99285; A9270; G0378; J0283; J0456; J0616; J1163; J1650; J1815; J1938; J2270; J2704; J7040; J7050; J7120